=== PATIENT | female | born 1955 | race Caucasian/White ===

== ENCOUNTER → 2019-04-07 | Outpatient (CLI) | payer MEDICARE, OTHER ==
--- NOTE | 2019-04-07 15:11 | US ---
EXAMINATION TYPE: US pelvic limited DATE OF EXAM: 04/07/2019 COMPARISON: NONE CLINICAL HISTORY: R10.2 pelvic and perineal pain. Perineal pain total hysterectomy. TECHNIQUE: Transabdominal (TA). EXAM MEASUREMENTS: Uterus: Surgically absent cm Endometrial Stripe: Surgically absent cm Right Ovary: Surgically absent cm Left Ovary: Surgically absent cm 1. Uterus: Surgically absent 2. Endometrium: Surgically absent 3. Right Ovary: Surgically absent 4. Left Ovary: Surgically absent 5. Bilateral Adnexa: wnl Images show portion of normal-appearing bladder. No concerning mass or fluid collection seen. IMPRESSION: As above. MTDD
== END | disposition home or self-care (01) ==
LOC: MERGE 14:11 → RADUSWWP 14:11
PROVIDERS: ATTEND Family Medicine
DX: R10.2 Pelvic and perineal pain (principal); Z90.710 Acquired absence of both cervix and uterus; Z90.722 Acquired absence of ovaries, bilateral
CPT/HCPCS: 76856; 76857

== ENCOUNTER → 2019-05-27 | Outpatient (CLI) | payer MEDICARE, OTHER ==
[2019-05-27 13:15] LABS: Basophils # (A) 0.1 k/uL (0-0.2); Basophils % (A) 1 %; Eosinophils # (A) 0.6 k/uL (0-0.7); Eosinophils % (A) 7 %; HCT 39.1 % (34.0-46.0); HGB 12.6 gm/dL (11.4-16.0); Lymphocytes % (A) 25 %; MCH 29.5 pg (25.0-35.0); MCHC 32.3 g/dL (31.0-37.0); MCV 91.2 fL (80.0-100.0); Mean Platelet Volume 7.4; Monocytes # (A) 0.7 k/uL (0-1.0); Monocytes % (A) 8 %; Neutrophils # (A) 4.6 k/uL (1.3-7.7); Neutrophils % (A) 57 %; Platelet Count 233 k/uL (150-450); RBC 4.28 m/uL (3.80-5.40); RDW 13.5 % (11.5-15.5); WBC 8.1 k/uL (3.8-10.6)
[2019-05-27 19:49] LABS: % Iron Saturation 9.04 (12.00-45.00); African American GFR (CKD) 110.1 (60.0-200.0); Anion Gap 9.6 mmol/L (4.00-12.00); BUN/Creat Ratio 31.67 Ratio (12.00-20.00); Calcium 9.5 mg/dL (8.7-10.3); Carbon Dioxide 28.4 mmol/L (21.6-31.8); Potassium 4.2 mmol/L (3.5-5.5)
== END | disposition home or self-care (01) ==
LOC: LABWHC1 12:22
PROVIDERS: ATTEND Family Medicine
DX: I50.9 Heart failure, unspecified (principal); D64.9 Anemia, unspecified
CPT/HCPCS: 36415; 80048; 82728; 83540; 83550; 85025

== ENCOUNTER → 2019-05-27 | Outpatient (CLI) | payer MEDICARE, OTHER ==
--- NOTE | 2019-05-27 13:13 | XR ---
Left RIBS HISTORY: Dyspnea, pain on inspiration, trauma 4 views of the left ribs There is no evident pneumothorax or pleural effusion. Calcified breast prosthesis is overlying the lo wer chest. There is some pleural thickening along the left lateral pleural margin. The fifth rib show s a contour abnormality laterally on one view, fourth, fifth, sixth ribs show questionable contour ab normality on additional oblique view. Inferior ribs are not well seen and there entirety due to patie nt body habitus. Postop changes are noted to the lumbar spine. Arthropathy present in left shoulder. Thoracic spondylosis noted incidentally. Aorta is dense. Possible spinal curvature. IMPRESSION: Findings consistent with rib fractures as described. Bone scan could be performed for add itional evaluation.
== END | disposition home or self-care (01) ==
LOC: RAD 12:51
PROVIDERS: ATTEND Family Medicine
DX: R60.0 Localized edema (principal)

== ENCOUNTER → 2019-06-04 | Outpatient (CLI) | payer MEDICARE, OTHER ==
--- NOTE | 2019-06-04 14:32 | XR ---
EXAMINATION TYPE: XR chest 2V, XR ribs LT DATE OF EXAM: 06/04/2019 COMPARISON: 05/27/2019 left ribs HISTORY: Rib fractures TECHNIQUE: Frontal and lateral views of the chest are obtained. FINDINGS: There is no focal air space opacity, pleural effusion, or pneumothorax seen. The cardiac silhouette size is within normal limits. The osseous structures are remarkable for a contour anomal y is present around the fourth, fifth, sixth ribs consistent with possible nondisplaced fractures, po stop changes are noted in the lumbar spine. Calcified left breast prosthesis is noted. Osteoarthritic change noted in the left shoulder. IMPRESSION: Findings are similar to prior exam. Consider bone scan for increased sensitivity and spe cificity as indicated.
== END | disposition home or self-care (01) ==
LOC: RADXRMAIN 09:48
PROVIDERS: ATTEND Family Medicine
DX: S22.42XA Multiple fractures of ribs, left side, initial encounter for closed fracture (principal)
CPT/HCPCS: 71046

== ENCOUNTER 2019-10-06 06:56 | Inpatient (IN) | payer MEDICARE, OTHER ==
[2019-10-06] MEDS ORDERED: SODIUM CHLORIDE 0.9% 1,000 ML IV STA (07:04)
[2019-10-06] MEDS ORDERED: HYDROmorphone 1 MG/ML 1 ML SYRINGE IVP STA ×2 (07:13→09:31)
--- NOTE | 2019-10-06 07:17 | ED ---
General Adult HPI - General Chief complaint: Abdominal Pain Stated complaint: GI problems, Abdominal Pain Time Seen by Provider: 10/06/19 07:00 Source: patient, EMS Mode of arrival: EMS Limitations: no limitations - History of Present Illness Initial comments: Dictation was produced using [employer] dictation software. please excuse any grammatical, word or spelling errors. This patient was cared for during a federal and state declared state of isis rgency secondary to Covid 19 Chief Complaint: 64-year-old female past medical history of bowel obstructions, bowel resections presents with abdominal pain History of Present Illness: 64-year-old female she presents today with abdominal pain. Patient recently moved from [place]. She has a long-standing history of bowel obstruction secondary to adhesions. She's had multiple bowel re sections while residing down in [place] for abdominal adhesions causing obstructions. Patient states she will suffer from a bowel obstruction 3 years ago. At approximately 1 AM this morning she reports that her symptoms became much more severe. She states that her symptoms initially started 3 days ago. States that her pain is nonlocalized and diffuse. She states the worst of her pain is in the left lower quadrant. No diarrhea or vomiting. She does complain of some nausea and poor appetite. Denies any fever, chills or night sweats. Denies any radiation of symptoms. She reports that her pain is severe. Her surgeon who performed all of her bowel resections or small bowel obstruction is located in [place] when she used to live there. Patient was transferred to the emergency department via EMS. EMS provided patient with 100 g of intranasal 10 no with minimal affect. Patient lives alone in the area with her dog. The ROS documented in this emergency department record has been reviewed and confirmed by me. Those systems with pertinent positive or negative responses have been documented in the HPI. All other systems are other negative and/or noncontributory. PHYSICAL EXAM: General Impression: Alert and oriented x3, not in acute distress HEENT: Normocephalic atraumatic, extra-ocular movements intact, pupils equal and reactive to light bilaterally, dry mucous membranes Cardiovascular: Heart regular rate and rhythm Chest: Able to complete full sentences, no retractions, no tachypnea Abdomen: Diffuse abdominal tenderness, tympanitic to percussion Musculoskeletal: Pulses present and equal in all extremities, no peripheral edema Motor: no focal deficits noted Neurological: CN II-XII grossly intact, no focal motor or sensory deficits noted Skin: Intact with no visualized rashes Psych: Normal affect and mood ED course: 64-year-old female with extensive abdominal history with multiple episodes of small bowel obstructions and intra-abdominal surgeries presents with abdominal pain. Patient's concerned that she is suffering from another bout of bowel obstruction. Vital signs upon arrival are within acceptable limits.Laboratory evaluation obtained. Leukocytosis of 15.3, rest of CBC is unremarkable metabolic panel is unremarkable. Urinalysis shows 7 white blood cells. Patient denies any urinary symptoms. Urine sent for culture. CT of the abdomen and pelvis with contrast was obtained showing findings of nausea small bowel obstruction. Nasogastric tube was performed. Discussed patient case Dr. white and is willing to accept patients care for admission. Given 1 dose of cefepime. EKG interpretation: Ventricular rate 64, normal sinus rhythm, SD interval 174, QRS 92, QTc 460. No SD prolongation, no QTC prolongation, no ST or T-wave changes noted. No old EKG for comparison. Overall, this EKG is unremarkable - Related Data Home Medications Medication Instructions Recorded Confirmed Bumetanide [BUMEX] 2 mg PO DAILY 08/01/18 10/06/19 Furosemide [Lasix] 80 mg PO DAILY 08/01/18 10/06/19 Lisinopril [Prinivil] 10 mg PO DAILY 08/01/18 10/06/19 Metoprolol Succinate (ER) [Toprol 100 mg PO DAILY 08/01/18 10/06/19 Xl] Pantoprazole Sodium [Protonix] 80 mg PO DAILY 08/01/18 10/06/19 Potassium Chloride [K-Tab ER] 40 meq PO DAILY 08/01/18 10/06/19 Docusate [Colace] 100 mg PO DAILY 10/06/19 10/06/19 Ibuprofen [Motrin] 600 mg PO TID-W/MEALS PRN 10/06/19 10/06/19 Lidocaine 5% Oint [Xylocaine 5% 1 applic TOPICAL DAILY PRN 10/06/19 10/06/19 Oint] Meloxicam 15 mg PO DAILY 10/06/19 10/06/19 Naratriptan HCl 2.5 mg PO DIRECTED PRN 10/06/19 10/06/19 traMADol HCL 100 mg PO Q6H PRN 10/06/19 10/06/19 Allergies Allergy/AdvReac Type Severity Reaction Status Date / Time carbamazepine [From Tegretol] Allergy increases Verified 10/06/19 10:19 seizures ciprofloxacin [From Cipro] Allergy Unknown Verified 10/06/19 10:19 clindamycin Allergy Nausea & Verified 10/06/19 10:19 Vomiting doxycycline Allergy Unknown Verified 10/06/19 10:19 morphine Allergy Rash/Hives Verified 10/06/19 10:19 Penicillins Allergy Anaphylaxis Verified 10/06/19 10:19 phenobarbital Allergy Rash/Hives Verified 10/06/19 10:19 phenytoin [From Dilantin] Allergy Anaphylaxis Verified 10/06/19 10:19 Review of Systems ROS Statement: Those systems with pertinent positive or pertinent negative responses have been documented in the HPI. ROS Other: All systems not noted in ROS Statement are negative. Past Medical History Past Medical History: Cancer, Heart Failure, COPD, CVA/TIA, Deep Vein Thrombosis (DVT), GERD/Reflux, Hypertension, Myocardial Infarction (IA), Neurologic Disorder, Osteoarthritis (OA), Seizure Disorder Additional Past Medical History / Comment(s): cancer- earnest breast, ovarian, u terine cancer, irreg heart rate CVA 1982, last seizure "decades ago" occasionally will experience petit mals, multiple cyst both kidneys, white matter and deep ash matter lesions in brain Last Myocardial Infarction Date:: 1997 History of Any Multi-Drug Resistant Organisms: MRSA Date of last positivie culture/infection: 2003 MDRO Source:: lt hip Past Surgical History: Appendectomy, Back Surgery, Bowel Resection, Breast Surgery, Cholecystectomy, Hysterectomy, Orthopedic Surgery, Tonsillectomy Additional Past Surgical History / Comment(s): earnest mastectomy, back surgery x5 with last sx cage in back, bowel resection x5-6, earnest. carpal tunnel, lt rotator cuff repair Past Anesthesia/Blood Transfusion Reactions: Previous Problems w/ Anesthesia Additional Past Anesthesia/Blood Transfusion Reaction / Comment(s): experiences anxiety prior to surgery and agitiation. b/p elevates during surgery. woke up during surgery. difficult IV start Past Psychological History: Anxiety, Depression Smoking Status: Never smoker Past Alcohol Use History: Rare Past Drug Use History: None Reported - Past Family History Mother Family Medical History: Cancer Additional Family Medical History / Comment(s): lung Father Family Medical History: Cancer Additional Family Medical History / Comment(s): prostate Brother(s) Family Medical History: Cancer Additional Family Medical History / Comment(s): lung with metastasis General Exam Limitations: no limitations Course Vital Signs 10/06/19 10/06/19 06:58 08:03 Temperature 98.6 F Pulse Rate 85 78 Respiratory 16 18 Rate Blood Pressure 154/94 124/84 O2 Sat by Pulse 94 L 96 Oximetry Medical Decision Making - Lab Data Result diagrams: 10/06/19 07:19 10/06/19 07:19 Lab Results 10/06/19 10/06/19 10/06/19 Range/Units 07:19 07:19 08:45 WBC 15.3 H (3.8-10.6) k/uL RBC 5.54 H (3.80-5.40) m/uL Hgb 15.5 (11.4-16.0) gm/dL Hct 46.9 H (34.0-46.0) % MCV 84.6 (80.0-100.0) fL MCH 28.0 (25.0-35.0) pg MCHC 33.1 (31.0-37.0) g/dL RDW 13.7 (11.5-15.5) % Plt Count 309 (150-450) k/uL Neutrophils % 79 % Lymphocytes % 13 % Monocytes % 4 % Eosinophils % 2 % Basophils % 1 % Neutrophils # 12.2 H (1.3-7.7) k/uL Lymphocytes # 2.0 (1.0-4.8) k/uL Monocytes # 0.6 (0-1.0) k/uL Eosinophils # 0.3 (0-0.7) k/uL Basophils # 0.1 (0-0.2) k/uL Hypochromasia Slight Sodium 139 (137-145) mmol/L Potassium 4.9 (3.5-5.1) mmol/L Chloride 103 (98-107) mmol/L Carbon Dioxide 22 (22-30) mmol/L Anion Gap 14 mmol/L BUN 22 H (7-17) mg/dL Creatinine 0.66 (0.52-1.04) mg/dL Est GFR (CKD-EPI)AfAm >90 (>60 ml/min/1.73 sqM) Est GFR (CKD-EPI)NonAf >90 (>60 ml/min/1.73 sqM) Glucose 120 H (74-99) mg/dL Calcium 10.1 (8.4-10.2) mg/dL Total Bilirubin 0.8 (0.2-1.3) mg/dL AST 39 H (14-36) U/L ALT 14 (4-34) U/L Alkaline Phosphatase 167 H (38-126) U/L Total Protein 8.3 H (6.3-8.2) g/dL Albumin 5.0 (3.5-5.0) g/dL Lipase 143 (23-300) U/L Urine Color Yellow Urine Appearance Clear (Clear) Urine pH 6.0 (5.0-8.0) Ur Specific [place] 1.020 (1.001-1.035) Urine Protein Trace H (Negative) Urine Glucose (UA) Negative (Negative) Urine Ketones Negative (Negative) Urine Blood Negative (Negative) Urine Nitrite Negative (Negative) Urine Bilirubin Negative (Negative) Urine Urobilinogen 2.0 (<2.0) mg/dL Ur Leukocyte Esterase Moderate H (Negative) Urine RBC 1 (0-5) /hpf Urine WBC 7 H (0-5) /hpf Ur Squamous Epith Cells 1 (0-4) /hpf Hyaline Casts 1 (0-2) /lpf Disposition Clinical Impression: Bowel obstruction Disposition: ADMITTED IP TO THIS HOSP Condition: Fair Referrals: Bia May MD [Primary Care Provider] - 1-2 days Decision Time: 10:58
[2019-10-06 07:45] LABS: Basophils # (A) 0.1 k/uL (0-0.2); Basophils % (A) 1 %; Eosinophils # (A) 0.3 k/uL (0-0.7); Eosinophils % (A) 2 %; HCT 46.9 % (34.0-46.0); HGB 15.5 gm/dL (11.4-16.0); Hypochromasia Slight; Lymphocytes % (A) 13 %; MCHC 33.1 g/dL (31.0-37.0); MCV 84.6 fL (80.0-100.0); Mean Platelet Volume 7.7; Monocytes # (A) 0.6 k/uL (0-1.0); Monocytes % (A) 4 %; Neutrophils # (A) 12.2 k/uL (1.3-7.7); Neutrophils % (A) 79 %; Platelet Count 309 k/uL (150-450); RBC 5.54 m/uL (3.80-5.40); RDW 13.7 % (11.5-15.5); WBC 15.3 k/uL (3.8-10.6)
[2019-10-06 08:51] LABS: ALT 14 U/L (4-34); AST 39 U/L (14-36); African American GFR (CKD) >90 (>60 ml/min/1.73 sqM); Alkaline Phosphatase 167 U/L (38-126); Anion Gap 14 mmol/L; Blood Urea Nitrogen 22 mg/dL (7-17); Calcium 10.1 mg/dL (8.4-10.2); Carbon Dioxide 22 mmol/L (22-30); Chloride 103 mmol/L (98-107); Glucose 120 mg/dL (74-99); Non-African American GFR(CKD) >90 (>60 ml/min/1.73 sqM); Potassium 4.9 mmol/L (3.5-5.1); Sodium 139 mmol/L (137-145); Total Bilirubin 0.8 mg/dL (0.2-1.3); Total Protein 8.3 g/dL (6.3-8.2)
[2019-10-06 09:07] LABS: Appearance,Urine Clear (Clear); Bilirubin,Urine Negative (Negative); Blood,Urine Negative (Negative); Color,Urine Yellow; Glucose,Urine (UA) Negative (Negative); Hyaline Casts,Urine 1 /lpf (0-2); Ketones,Urine Negative (Negative); Leukocyte Esterase,Urine Moderate (Negative); Nitrite,Urine Negative (Negative); Protein,Urine Trace (Negative); RBC,Urine 1 /hpf (0-5); Squamous Epithelial Cell,Urine 1 /hpf (0-4); WBC,Urine 7 /hpf (0-5)
--- NOTE | 2019-10-06 10:04 | CT ---
EXAMINATION TYPE: CT abdomen pelvis w con DATE OF EXAM: 10/06/2019 HISTORY: Abd pain, history of multiple bowel obstructions. CT DLP: 809.1mGycm Automated Exposure Control for Dose Reduction was Utilized. CONTRAST: CT scan of the abdomen and pelvis is performed without oral but with IV Contrast, patient injected wi th 100 mL of Isovue 300. COMPARISON: None. FINDINGS: LUNG BASES: Partial visualization of bilateral breast implants, left breast implant noted smaller in size with rim calcification. Suspect possible contracture or rupture. Correlate clinically. Dependent atelectasis both bases. LIVER/GB: Gallbladder noted surgically absent. Fairly moderate mid segment extra hepatic biliary dil atation up to 17 mm inferior to the yusef hepatis coronal image 18. There is perhaps mild left-sided intrahepatic biliary dilatation. The central extrahepatic bile duct less prominent near the yusef hep atis where there is some tortuous course noted. The bile duct tapers roughly 14 mm near the ampulla c oronal image 44. PANCREAS: No significant abnormality is seen. SPLEEN: No significant abnormality is seen. ADRENALS: No significant abnormality is seen. KIDNEYS: A few scattered simple-appearing thin-walled cysts throughout both kidneys. No hydronephrosi s is noted bilaterally. BOWEL: Small to moderate-sized hiatal hernia. Stomach poorly distended on this suboptimally evaluated . No suspicious dilatation of duodenal sweep. Proximal small bowel loops in the left upper and midabd omen show no suspicious dilatation. The mid to lower abdomen shows prominent fluid and fecal filled b owel loop snare sutures up to 44 mm coronal image 25 in the lower abdomen just right of midline and u p to 53 mm left lower quadrant coronal image 42. Additional sutures seen anteriorly in the upper pelv is. Fecal material seen in nondistended colon along the periphery. Scattered peripheral colonic diver ticula. Mild to moderate fat stranding in the upper pelvis coronal image 41 for reference. UTERUS/ADNEXA: Uterus surgically absent or markedly atrophic. Scattered pelvic phleboliths. LYMPH NODES: No greater than 1cm abdominal or pelvic lymph nodes are appreciated. OSSEOUS STRUCTURES: Posterior interpedicular rods and screws transfix L4-S1 levels. Artificial disc m aterial. Left-sided screw appears to encroach upon the draining left internal iliac vein axial image 51 and sagittal image 68 without evidence of thrombus on delayed images. Posterior decompression with laminectomy defect lower lumbar spine.. OTHER: No significant additional abnormality is seen. IMPRESSION: 1. Extensive surgical change involving bowel loops mid to lower abdomen into the upper pelvis with fo kathrin fluid and fecal dilatation. Surrounding inflammatory change noted. Findings could reflect product of partial bowel obstruction, cannot exclude closed-loop obstruction or internal hernia as there is no significant proximal dilatation noted currently and findings are more prominent or localized. 2. Fairly moderate extrahepatic and mild intrahepatic biliary dilatation should be correlated clinica lly and with old outside studies to determine need for further workup.
[2019-10-06] MEDS ORDERED: CEFEPIME 2 GM in SODIUM CHLORIDE 0.9% 100 ML IVPB STA (10:27)
[2019-10-06] MEDS ORDERED: NALOXONE 0.4 MG/ML 1 ML VIAL IV PRN (10:54)
[2019-10-06] MEDS ORDERED: ACETAMINOPHEN TAB 325 MG TAB PO PRN (10:54)
--- NOTE | 2019-10-06 11:59 | XR ---
EXAMINATION TYPE: XR abdomen 1V DATE OF EXAM: 10/06/2019 COMPARISON: 10/06/2019 HISTORY: NG tube placement TECHNIQUE: One view abdominal series FINDINGS: The osseous structures are intact. The bowel gas pattern is nonspecific. An NG tube is seen coiled i n the left upper quadrant likely within the body the stomach. Postsurgical change involving the verte bral column. There are remaining prominent small bowel loops. Lower abdomen and pelvis are not includ ed on exam. Basilar consolidation is noted. IMPRESSION: 1. Nonspecific abdomen. Findings suspicious for ileus or small bowel obstruction. NG tube seen coile d in the left upper quadrant likely within the body of the stomach. 2. Bibasilar atelectasis or infiltrate.
[2019-10-06] MEDS: HYDROmorphone 0.5 MG/0.5 ML SYRINGE IVP PRN ×3 (12:08→16:04)
[2019-10-06] MEDS: SODIUM CHLORIDE 0.9% 1,000 ML IV SCH ×2 (12:27→23:48)
--- NOTE | 2019-10-06 15:06 | P.GSHP ---
History of Present Illness H&P Date: 10/06/19 Chief Complaint: abdominal pain CHIEF COMPLAINT: Abdominal pain HISTORY OF PRESENT ILLNESS: 64-year-old female who presented to emergency room with a chief complaint of abdominal pain and bloating. Patient has a history of a partial bowel resection and also reports having multiple bowel obstructions. Patient reports her pain feels worse than it has with her previous bowel obstructions. She reports severe pain in the left upper and lower quadrants. An NG tube has been inserted in the emergency room. PAST MEDICAL HISTORY: See list. PAST SURGICAL HISTORY: See list. SOCIAL HISTORY: No illicit drug use. REVIEW OF SYSTEMS: CONSTITUTIONAL: Denies fever or chills. HEENT: Denies blurred vision, vision changes, or eye pain. Denies hemoptysis CARDIOVASCULAR: Denies chest pain or pressure. RESPIRATORY: No shortness of breath. GASTROINTESTINAL: Refer to HPI for pertinent findings HEMATOLOGIC: Denies bleeding disorders. GENITOURINARY: Denies any blood in urine. SKIN: Denies pruitis. Denies rash. PHYSICAL EXAM: VITAL SIGNS: Reviewed. GENERAL: Well-developed in no acute distress. HEENT: No sclera icterus. Extraocular movements grossly intact. Moist buccal mucosa. Head is atraumatic, normocephalic. ABDOMEN: Soft. Distended. Tenderness upon palpation of left upper and lower quadrants. NEUROLOGIC: Alert and oriented. Cranial nerves II through XII grossly intact. LABORATORY DATA: WBC 15.3. Hemoglobin 15.5. Platelet count 309. IMAGING: CT abdomen and pelvis: Extensive surgical changes involving bowel loops mid to l ower abdomen into the upper pelvis with focal fluid and fecal dilatation. Surrounding inflammatory changes noted. Findings could reflect partial bowel obstruction. Cannot exclude closed loop obstruction or internal hernia. ASSESSMENT: 1. Small bowel obstruction PLAN: -NPO -Continue NG tube -IV antibiotics -Patient tentatively scheduled for exploratory laparotomy tomorrow with Dr. Artis Nurse practitioner note has been reviewed by physician. Signing provider agrees with the documented findings, assessment, and plan of care. Past Medical History Past Medical History: Cancer, Heart Failure, COPD, CVA/TIA, Deep Vein Thrombosis (DVT), GERD/Reflux, Hypertension, Myocardial Infarction (AL), Neurologic Disorder, Osteoarthritis (OA), Seizure Disorder Additional Past Medical History / Comment(s): cancer- earnest breast, ovarian, uterine cancer, irreg heart rate CVA 1982, last seizure "decades ago" occasionally will experience petit mals, multiple cyst both kidneys, white matter and deep ash matter lesions in brain Last Myocardial Infarction Date:: 1997 History of Any Multi-Drug Resistant Organisms: MRSA Date of last positivie culture/infection: 2003 MDRO Source:: lt hip Past Surgical History: Appendectomy, Back Surgery, Bowel Resection, Breast Surgery, Cholecystectomy, Hysterectomy, Orthopedic Surgery, Tonsillectomy Additional Past Surgical History / Comment(s): earnest mastectomy, back surgery x5 with last sx cage in back, bowel resection x5-6, earnest. carpal tunnel, lt rotator cuff repair Past Anesthesia/Blood Transfusion Reactions: Previous Problems w/ Anesthesia Additional Past Anesthesia/Blood Transfusion Reaction / Comment(s): experiences anxiety prior to surgery and agitiation. b/p elevates during surgery. woke up during surgery. difficult IV start Past Psychological History: Anxiety, Depression Smoking Status: Never smoker Past Alcohol Use History: Rare Past Drug Use History: None Reported Additional Drug Use History / Comment(s): CBD pill daily stopped 07/30/18 - Past Family History Mother Family Medical History: Cancer Additional Family Medical History / Comment(s): lung Father Family Medical History: Cancer Additional Family Medical History / Comment(s): prostate Brother(s) Family Medical History: Cancer Additional Family Medical History / Comment(s): lung with metastasis Medications and Allergies Home Medications Medication Instructions Recorded Confirmed Type Bumetanide [BUMEX] 2 mg PO DAILY 08/01/18 10/06/19 History Furosemide [Lasix] 80 mg PO DAILY 08/01/18 10/06/19 History Lisinopril [Prinivil] 10 mg PO DAILY 08/01/18 10/06/19 History Metoprolol Succinate (ER) [Toprol 100 mg PO DAILY 08/01/18 10/06/19 History Xl] Pantoprazole Sodium [Protonix] 80 mg PO DAILY 08/01/18 10/06/19 History Potassium Chloride [K-Tab ER] 40 meq PO DAILY 08/01/18 10/06/19 History Docusate [Colace] 100 mg PO DAILY 10/06/19 10/06/19 History Ibuprofen [Motrin] 600 mg PO TID-W/MEALS PRN 10/06/19 10/06/19 History Lidocaine 5% Oint [Xylocaine 5% 1 applic TOPICAL DAILY PRN 10/06/19 10/06/19 History Oint] Meloxicam 15 mg PO DAILY 10/06/19 10/06/19 History Naratriptan HCl 2.5 mg PO DIRECTED PRN 10/06/19 10/06/19 History traMADol HCL 100 mg PO Q6H PRN 10/06/19 10/06/19 History Allergies Allergy/AdvReac Type Severity Reaction Status Date / Time carbamazepine [From Tegretol] Allergy increases Verified 10/06/19 10:19 seizures ciprofloxacin [From Cipro] Allergy Unknown Verified 10/06/19 10:19 clindamycin Allergy Nausea & Verified 10/06/19 10:19 Vomiting doxycycline Allergy Unknown Verified 10/06/19 10:19 morphine Allergy Rash/Hives Verified 10/06/19 10:19 Penicillins Allergy Anaphylaxis Verified 10/06/19 10:19 phenobarbital Allergy Rash/Hives Verified 10/06/19 10:19 phenytoin [From Dilantin] Allergy Anaphylaxis Verified 10/06/19 10:19 Surgical - Exam Vital Signs Temp Pulse Resp BP Pulse Ox 98.6 F 85 16 154/94 94 L 10/06/19 06:58 10/06/19 06:58 10/06/19 06:58 10/06/19 06:58 10/06/19 06:58 Results - Labs 10/06/19 07:19 10/06/19 07:19 Abnormal Lab Results - Last 24 Hours (Table) 10/06/19 10/06/19 10/06/19 Range/Units 07:19 07:19 08:45 WBC 15.3 H (3.8-10.6) k/uL RBC 5.54 H (3.80-5.40) m/uL Hct 46.9 H (34.0-46.0) % Neutrophils # 12.2 H (1.3-7.7) k/uL BUN 22 H (7-17) mg/dL Glucose 120 H (74-99) mg/dL AST 39 H (14-36) U/L Alkaline Phosphatase 167 H (38-126) U/L Total Protein 8.3 H (6.3-8.2) g/dL Urine Protein Trace H (Negative) Ur Leukocyte Esterase Moderate H (Negative) Urine WBC 7 H (0-5) /hpf Diabetes panel 10/06/19 Range/Units 07:19 Sodium 139 (137-145) mmol/L Potassium 4.9 (3.5-5.1) mmol/L Chloride 103 (98-107) mmol/L Carbon Dioxide 22 (22-30) mmol/L BUN 22 H (7-17) mg/dL Creatinine 0.66 (0.52-1.04) mg/dL Glucose 120 H (74-99) mg/dL Calcium 10.1 (8.4-10.2) mg/dL AST 39 H (14-36) U/L ALT 14 (4-34) U/L Alkaline Phosphatase 167 H (38-126) U/L Total Protein 8.3 H (6.3-8.2) g/dL Albumin 5.0 (3.5-5.0) g/dL Calcium panel 10/06/19 Range/Units 07:19 Calcium 10.1 (8.4-10.2) mg/dL Albumin 5.0 (3.5-5.0) g/dL Pituitary panel 10/06/19 Range/Units 07:19 Sodium 139 (137-145) mmol/L Potassium 4.9 (3.5-5.1) mmol/L Chloride 103 (98-107) mmol/L Carbon Dioxide 22 (22-30) mmol/L BUN 22 H (7-17) mg/dL Creatinine 0.66 (0.52-1.04) mg/dL Glucose 120 H (74-99) mg/dL Calcium 10.1 (8.4-10.2) mg/dL Adrenal panel 10/06/19 Range/Units 07:19 Sodium 139 (137-145) mmol/L Potassium 4.9 (3.5-5.1) mmol/L Chloride 103 (98-107) mmol/L Carbon Dioxide 22 (22-30) mmol/L BUN 22 H (7-17) mg/dL Creatinine 0.66 (0.52-1.04) mg/dL Glucose 120 H (74-99) mg/dL Calcium 10.1 (8.4-10.2) mg/dL Total Bilirubin 0.8 (0.2-1.3) mg/dL AST 39 H (14-36) U/L ALT 14 (4-34) U/L Alkaline Phosphatase 167 H (38-126) U/L Total Protein 8.3 H (6.3-8.2) g/dL Albumin 5.0 (3.5-5.0) g/dL
[2019-10-06] MEDS: HEPARIN SODIUM,PORCINE 5,000 UNIT/ML 1 ML VIAL SQ SCH (16:03)
[2019-10-06] MEDS: metroNIDAZOLE-NS PMX 500 MG in SALINE 1 100ML.BAG IVPB SCH (16:03)
[2019-10-06] MEDS: LORazepam 2 MG/ML INJ IV PRN (17:04)
--- NOTE | 2019-10-06 17:46 | XR ---
EXAMINATION TYPE: XR chest 1V portable DATE OF EXAM: 10/06/2019 Comparison: 06/04/2019 Clinical History: 64-year-old female CHF Findings: Heart borderline in size. Mild interstitial density. Some overlying hazy density from patient's bilat eral breast implants. NG tube courses below the diaphragm. No sizable effusion. Impression: Interstitial density may reflect mild pulmonary vascular congestion.
[2019-10-06] MEDS: HYDROmorphone 1 MG/ML 1 ML SYRINGE IVP PRN ×4 (18:01→23:44)
--- NOTE | 2019-10-06 19:45 | CONS ---
CONSULTATION REASON FOR CONSULTATION: Advice regarding COPD, CHF and other medical issues, requested by Dr. Artis. HISTORY OF PRESENT ILLNESS: This 64-year-old woman with a past medical history of CHF, COPD, CVA, DVT, history of GERD, hypertension, myocardial infarction, seizure disorder, history of appendectomy, back surgery, being followed by Dr. May in the outpatient setting, was complaining of severe abdominal pain for the last several days. 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 The pain is rather diffuse. The patient had previous multiple bowel surgeries and multiple bowel resections at [facility]. The patient had a bowel obstruction secondary to adhesions. The patient said at 1 a.m. the symptoms were worse. Mainly the pain was in the left lower quadrant. When the patient came to [facility], pain was 10/10 in intensity. Patient underwent a CT scan of the abdomen and pelvis which showed extensive surgical changes as well as bowel loops with dilatation suggestive of partial small-bowel obstruction, closed-loop obstruction. Some intrahepatic biliary dilatation was also noted possibly secondary to cholecystectomy. The patient was complaining, as mentioned, of severe pain. The pain medications have been increased and Ativan also has been added to the current regimen. There is no history of any fever, rigor or chills. No history of headache, loss of consciousness, seizures. No history of hematochezia, melena, diarrhea at this time. PAST MEDICAL HISTORY: History of CHF, COPD, CVA, TIA, DVT, GERD, hypertension, history of myocardial infarction, history of appendectomy, back surgery, history of cholecystectomy. HOME MEDICATIONS: 1. Ultram 100 mg q.6 p.r.n. 2. Meloxicam 15 mg p.o. daily. 3. Colace 100 mg p.o. daily. 4. Naratriptan 2.5 mg p.r.n. 5. Lidocaine 5% one application daily p.r.n. 6. Motrin 600 mg p.o. t.i.d. with meals. 7. Prinivil 10 mg p.o. daily. 8. K-Tab ER 40 mEq p.o. daily. 9. Protonix 80 mg p.o. daily. 10.Toprol-XL 100 mg p.o. daily. 11.Lasix 80 mg p.o. daily. 12.Bumex 2 mg p.o. daily. ALLERGIES: TEGRETOL, CIPRO, CLINDAMYCIN, DOXYCYCLINE, MORPHINE, PENICILLIN, PHENOBARBITAL, DILANTIN. FAMILY HISTORY: History of lung cancer in the family. SOCIAL HISTORY: No history of smoking. Occasional alcohol intake. REVIEW OF SYSTEMS: ENT: No diminished hearing. No diminished vision. CARDIOVASCULAR SYSTEM: As mentioned earlier. RESPIRATORY SYSTEM: As mentioned earlier. GI: As mentioned earlier. : No dysuria or retention. NERVOUS SYSTEM: No numbness, weakness. ALLERGY/IMMUNOLOGY: No asthma, hayfever. MUSCULOSKELETAL: As mentioned earlier. HEMATOLOGY/ONCOLOGY: No history of anemia. ENDOCRINE: No history of diabetes, hypothyroidism. CONSTITUTIONAL: As mentioned earlier. DERMATOLOGY: Negative. RHEUMATOLOGY: Negative. PSYCHIATRY: As mentioned earlier. PHYSICAL EXAMINATION: Patient alert and oriented x3. Pulse 77, blood pressure 109/74, respiration 16, temperature 98 degrees, pulse ox 94% on room air. HEENT: Conjunctivae normal. Oral mucosa moist. NECK: No jugular venous distention. No carotid bruit. No lymph node enlargement. CARDIOVASCULAR SYSTEM: S1, S2 muffled. RESPIRATORY SYSTEM: Breath sounds diminished at the bases. A few scattered rhonchi and crackles. ABDOMEN: Soft. Status post surgery. No guarding. No rigidity. No mass palpable. Mild diffuse distention present. Most of the tenderness in the left side of the abdomen. NG tube in situ. Bowel sounds diminished. LEGS: No edema. No swelling. NERVOUS SYSTEM: Higher functions as mentioned earlier. Moves all 4 limbs. No focal motor or sensory deficit. LYMPHATICS: No lymph node palpable in neck, axillae or groin. SKIN: No ulcer, rash, bleeding. JOINTS: No active deforming arthropathy. LABS: WBC 15.3, hemoglobin 15.5, sodium 139, potassium 4.9. Total protein is 8.3. ASSESSMENT: 1. Abdominal pain with possibly partial small bowel obstruction. 2. Increased white count. 3. Increased random blood sugar. 4. History of congestive heart failure. 5. History of chronic obstructive pulmonary disease. 6. History of cerebrovascular accident, transient ischemic attack. 7. History of deep vein thrombosis. 8. Gastroesophageal reflux disease. 9. Hypertension. 10.History of myocardial infarction. 11.History of degenerative joint disease. 12.History of seizure disorder. 13.History of bilateral breast and ovarian cancer. 14.History of cerebrovascular accident. 15.History of methicillin-resistant Staphylococcus aeruginosa. 16.History of appendectomy. 17.History of breast surgery. 18.History of bowel resection. 19.History of cholecystectomy. 20.History of mastectomy. 21.History of multiple bowel resections previously. 22.Previous problems with anesthesia. 23.Anxiety, depression. 24.FULL CODE. RECOMMENDATIONS AND DISCUSSION: In this 64-year-old woman who presented with multiple complex medical issues, we will monitor the patient closely, continue the current medications, continue with symptomatic treatment. The patient had possibly bowel obstruction and might need surgical intervention at this time. I recommend optimizing the home medications. The patient appears to be euvolemic at this time. I would also recommend a chest x-ray to rule out the possibility of an active CHF. Medications will be given appropriately. Otherwise, I would also recommend a cardiology evaluation because of the extensive cardiac history as well. The patient appears to be stable and medically cleared for surgery once seen by Cardiology. Otherwise, see orders for further details. Further recommendations to follow. DVT prophylaxis. Proton pump inhibitors. Thank you, Dr. Artis, for letting us participate in the care of this patient. The patient may be asked to follow up with Dr. May closely after discharge. MMODL / IJN: [id number] /
[2019-10-06] MEDS ORDERED: CEFEPIME 2 GM in SODIUM CHLORIDE 0.9% 100 ML IVPB SCH (21:00)
[2019-10-06] MEDS: LACTATED RINGERS 1,000 ML IV SCH (21:54)
[2019-10-06] MEDS: CEFEPIME 2 GM in SODIUM CHLORIDE 0.9% 100 ML IVPB SCH (23:43)
[2019-10-07] MEDS: LORazepam 2 MG/ML INJ IV PRN ×3 (00:06→19:58)
[2019-10-07] MEDS: metroNIDAZOLE-NS PMX 500 MG in SALINE 1 100ML.BAG IVPB SCH ×3 (00:22→14:52)
[2019-10-07] MEDS: HEPARIN SODIUM,PORCINE 5,000 UNIT/ML 1 ML VIAL SQ SCH ×3 (00:22→09:38)
[2019-10-07] MEDS: HYDROmorphone 1 MG/ML 1 ML SYRINGE IVP PRN ×8 (01:54→22:11)
[2019-10-07 07:43] LABS: Basophils # (A) 0.1 k/uL (0-0.2); Basophils % (A) 1 %; Eosinophils # (A) 0.2 k/uL (0-0.7); Eosinophils % (A) 3 %; HCT 37.5 % (34.0-46.0); Hypochromasia Moderate; Lymphocytes # (A) 1.4 k/uL (1.0-4.8); Lymphocytes % (A) 22 %; MCH 26.8 pg (25.0-35.0); MCHC 30.6 g/dL (31.0-37.0); MCV 87.7 fL (80.0-100.0); Mean Platelet Volume 7.5; Monocytes # (A) 0.6 k/uL (0-1.0); Monocytes % (A) 9 %; Neutrophils # (A) 4.1 k/uL (1.3-7.7); Neutrophils % (A) 64 %; Platelet Count 250 k/uL (150-450); RBC 4.28 m/uL (3.80-5.40); RDW 14.1 % (11.5-15.5); WBC 6.4 k/uL (3.8-10.6)
[2019-10-07] MEDS: FUROSEMIDE 80 MG TAB PO SCH (07:48)
[2019-10-07 07:49] LABS: African American GFR (CKD) >90 (>60 ml/min/1.73 sqM); Anion Gap 7 mmol/L; Blood Urea Nitrogen 10 mg/dL (7-17); Calcium 8.8 mg/dL (8.4-10.2); Carbon Dioxide 19 mmol/L (22-30); Chloride 115 mmol/L (98-107); Glucose 93 mg/dL (74-99); Non-African American GFR(CKD) >90 (>60 ml/min/1.73 sqM); Sodium 141 mmol/L (137-145)
[2019-10-07] MEDS: PANTOPRAZOLE 40 MG/10 ML VIAL IV SCH ×2 (07:49→16:56)
[2019-10-07] MEDS: BUMETANIDE 1 MG TAB PO SCH (07:49)
--- NOTE | 2019-10-07 07:49 | P.PN ---
Progress Note - Text Progress Note Date: 10/07/19 The patient has had significant abdominal pain overnight. Her pain is not managed well with a lot of. On exam patient has significant pain on palpation. Patient appears to have acute abdomen with peritoneal signs. My concern for ischemic small bowel or or closed loop obstruction with ischemia is high. I discussed the patient and she'll need to go undergo emergent laparotomy this morning.
[2019-10-07] MEDS: METOPROLOL SUCCINATE (ER) 50 MG TAB.ER.24H PO SCH (07:57)
[2019-10-07] MEDS: LISINOPRIL 10 MG TAB PO SCH (07:57)
[2019-10-07 07:58] LABS: HGB 11.5 gm/dL (11.4-16.0)
[2019-10-07] MEDS: CEFEPIME 2 GM in SODIUM CHLORIDE 0.9% 100 ML IVPB SCH ×2 (07:58→14:52)
[2019-10-07] MEDS ORDERED: METOPROLOL SUCCINATE (ER) 100 MG TAB.ER.24H PO SCH (09:00)
[2019-10-07] MEDS ORDERED: IV FLUID CONTINUATION 1,000 ML IV ONE (09:35)
[2019-10-07] MEDS: ONDANSETRON 4 MG/2 ML VIAL IVP PRN ×3 (09:38→23:54)
[2019-10-07] MEDS ORDERED: MIDAZOLAM 2 MG/2 ML VIAL IV ONE (09:56)
[2019-10-07] MEDS ORDERED: HYDROmorphone (PF) 1 MG/ML ONE (10:26)
[2019-10-07] MEDS ORDERED: PROPOFOL 10 MG/ML 20 ML VIAL IV ONE (10:26)
[2019-10-07] MEDS ORDERED: GLYCOPYRROLATE 0.2 MG/ML 2 ML VIAL ONE (10:26)
[2019-10-07] MEDS ORDERED: PHENYLEPHRINE-0.9% NACL SYG 1 MG/10 ML SYRINGE ONE (10:26)
[2019-10-07] MEDS ORDERED: NEOSTIGMINE 1 MG/ML 10 ML VIAL ONE (10:26)
[2019-10-07] MEDS ORDERED: DEXAMETHASONE SOD PHOSPHATE 10 MG/ML 1 ML VIAL ONE (10:26)
[2019-10-07] MEDS ORDERED: LIDOCAINE 1% INJ 10MG/ML (20 ML MDV) ONE (10:26)
[2019-10-07] MEDS ORDERED: ROCURONIUM BROMIDE 10 MG/ML 5 ML VIAL IV ONE (10:26)
[2019-10-07] MEDS ORDERED: fentaNYL (PF) 50 MCG/ML 2 ML AMP ONE (10:26)
[2019-10-07] MEDS ORDERED: SUCCINYLCHOLINE CHLORIDE 100 MG/5 ML SYR IV ONE (10:26)
[2019-10-07] MEDS ORDERED: LACTATED RINGERS 1,000 ML IV ONE ×2 (10:53→13:01)
[2019-10-07] MEDS: SODIUM CHLORIDE 0.9% 1,000 ML IV SCH (11:35)
--- NOTE | 2019-10-07 12:54 | P.OP ---
Date of Procedure: 10/07/19 Preoperative Diagnosis: Small bowel obstruction Postoperative Diagnosis: Small bowel obstruction Extensive adhesions Incisional hernia repair Procedure(s) Performed: Exploratory laparotomy Lysis of extensive adhesions Small bowel resection 2 Incisional hernia repair Anesthesia: HADLEY Surgeon: Giovani Artis Surgeon Partner #1: Tono Morales Estimated Blood Loss (ml): 200 Pathology: other (Small bowel) Condition: stable Disposition: ICU Description of Procedure: Patient's placed on the operative table in the supine position. She received general anesthesia. Her abdomen was prepped and draped usual sterile fashion. The patient multiple laparotomy scars on her belly. The skin was divided in the midline and then using left cautery the fascia was divided. There was small bowel extensively adhered to the anterior abdominal wall fascia. Approximately 45 minutes of operative time used to divide small bowel off of the fascia. There was significant adhesions throughout the small bowel. The peritoneal cavity was frozen. A large amount of time was used to lyse adhesions. There was several enterotomies made in the small bowel. The small bowel was sent densely adhered to the fascia and along the midline scar and there was several enterotomies made. At this point the small bowel was mobilized and then it was decided that due to the significant scar tissue and it and enterotomy is made in the small bowel inside perform a small bowel resection. The jejunum was transected with a GI stapler and then using the Enseal device the mesentery the small bowel was divided. The terminal ileum was divided approximately 5 inches from the cecum. The specimens of pathology. A bxes-up-[id number] functional end-to-end stapled vessels. Between the jejunum and ileum. 3-0 GI silk sutures as a crotch stitch. The abdomen was irrigated there is no bleeding seen. The fascia was closed with looped #1 PDS suture. The skin was closed devon. Several Telfa melissa were placed in the wound. Patient top she will well she was sent to the recovery room and then the ICU.
[2019-10-07] MEDS: HYDROmorphone 1 MG/ML 1 ML SYRINGE IVP ONE ×4 (13:00→14:03)
[2019-10-07] MEDS ORDERED: NALOXONE 0.4 MG/ML 1 ML VIAL IV PRN (13:01)
--- NOTE | 2019-10-07 13:04 | P.PN ---
<Micheline Mckeon - Last Filed: 10/07/19 13:04> Progress Note - Text Attempted to evaluate this patient this morning during rounds. She was artery in the operating room. <Elias Diaz - Last Filed: 10/21/19 13:49> Progress Note - Text Should read "Already" instead of artery
[2019-10-07] MEDS: fentaNYL (PF) 50 MCG/ML 2 ML AMP IVP ONE ×2 (13:10→13:15)
[2019-10-07 14:46] LABS: Glucose,Whole Blood 179 mg/dL (75-99)
--- NOTE | 2019-10-07 15:39 | P.CNPUL ---
History of Present Illness Consult date: 10/07/19 Chief complaint: Small bowel obstruction, History of present illness: 64-year-old female patient was admitted for abdominal pain and bloating. The patient is known to have previous history of partial bowel resection and she has had multiple previous bowel obstructions. Patient reported that she was having significant amount of pain in her left upper and lower quadrants. NG tube was inserted in the emergency department as the patient was given a CAT scan of the abdomen and pelvis that showed extensive surgical changes involving the bowel loops in the mid in the lower abdomen into the upper pelvis with focal fluid and fecal dilatation. Surrounding inflammatory changes noted. Findings were consistent with partial bowel obstruction and the possibility of closed loop obstruction or internal hernia cannot be completely excluded. There was no significant proximal dilatation and the findings were more localized. There was also fairly moderate extrahepatic and mild intrahepatic biliary dilatation noted. Also, there was a small to moderate-sized hiatal hernia. The stomach was poorly distended. No suspicious dilatation of the duodenal sweep. There was also scattered peripheral colonic diverticuli noted. The white cell count was 15.3. The liver function tests were within normal limits. Amylase lipase within normal limits. The patient was taken to the operating room today by Dr. Koehler and the patient underwent expiratory laparotomy. The patient was found to have frozen abdomen with extensive adhesions. The patient underwent lysis of adhesions and small bowel resection 2 and repair of an incisional hernia was also done. Postop, the patient was extubated in the operating room and the patient was brought into the intensive care unit for further monitoring. The patient is on normal saline at the rate of 60 mL an hour and she is also receiving lactated Ringer at the rate of 125 mL an hour. She is on IV cefepime as an empiric antibiotic coverage in combination with Flagyl. The patient is on Lovenox 40 prophylaxis 40 mg subcu every 24 hours. She is also on Dilaudid for pain control. She is awake and alert and her pain is under adequate control. She is wearing an abdominal bounded. Surgical wound site is dry clean and intact. No drains noted. Review of Systems Constitutional: Denies chills, Denies fever Eyes: denies as per HPI, denies blurred vision, denies bulging eye, denies decreased vision, denies diplopia, denies discharge, denies dry eye, denies irritation, denies itching, denies pain, denies photophobia, denies loss of peripheral vision, denies loss of vision, denies tunnel vision/blind spots Ears: deny: decreased hearing, ear discharge, earache, tinnitus Ears, nose, mouth and throat: Denies headache, Denies sore throat Breasts: absent: as per HPI, change in shape, gynecomastia, masses, nipple discharge, pain, skin changes, swelling Cardiovascular: Denies chest pain, Denies shortness of breath Respiratory: Denies cough Gastrointestinal: Reports abdominal pain Genitourinary: Reports as per HPI Menstruation: Reports as per HPI Musculoskeletal: Reports as per HPI Musculoskeletal: absent: ankle pain, ankle stiffness, ankle swelling Integumentary: Reports as per HPI Neurological: Reports as per HPI Psychiatric: Reports as per HPI Endocrine: Reports as per HPI Hematologic/Lymphatic: Reports as per HPI Allergic/Immunologic: Reports as per HPI Past Medical History Past Medical History: Cancer, Heart Failure, COPD, CVA/TIA, Deep Vein Thrombosis (DVT), GERD/Reflux, Hypertension, Myocardial Infarction (VT), Neurologic Disorder, Osteoarthritis (OA), Seizure Disorder Additional Past Medical History / Comment(s): History of bilateral breast ca ncer, ovarian cancer, uterine cancer, history of CVA back in 1982, history of irregular heart rate possibly atrial fibrillation many years back, history of petit mal seizures, coronary artery disease, previous VT, history of DVT, history of acid reflux, history of COPD, hypertension, osteoarthritis, multiple bowel obstruction requiring previous abdominal surgeries and bowel resection. She also has renal cysts Last Myocardial Infarction Date:: 1997 History of Any Multi-Drug Resistant Organisms: MRSA Date of last positivie culture/infection: 2003 MDRO Source:: lt hip Past Surgical History: Appendectomy, Back Surgery, Bowel Resection, Breast Surgery, Cholecystectomy, Hysterectomy, Orthopedic Surgery, Tonsillectomy Additional Past Surgical History / Comment(s): earnest mastectomy, oopherectomy back surgery x5 with last sx cage in back, bowel resection x5-6, earnest. carpal tunnel, lt rotator cuff repair Past Anesthesia/Blood Transfusion Reactions: Previous Problems w/ Anesthesia Additional Past Anesthesia/Blood Transfusion Reaction / Comment(s): experiences anxiety prior to surgery and agitiation. b/p elevates during surgery. woke up during surgery. difficult IV start Past Psychological History: Anxiety, Depression Smoking Status: Never smoker Past Alcohol Use History: Rare Past Drug Use History: None Reported Additional Drug Use History / Comment(s): CBD pill daily stopped 07/30/18 - Past Family History Mother Family Medical History: Cancer Additional Family Medical History / Comment(s): lung Father Family Medical History: Cancer Additional Family Medical History / Comment(s): prostate Brother(s) Family Medical History: Cancer Additional Family Medical History / Comment(s): lung with metastasis Medications and Allergies Home Medications Medication Instructions Recorded Confirmed Type Bumetanide [BUMEX] 2 mg PO DAILY 08/01/18 10/06/19 History Furosemide [Lasix] 80 mg PO DAILY 08/01/18 10/06/19 History Lisinopril [Prinivil] 10 mg PO DAILY 08/01/18 10/06/19 History Metoprolol Succinate (ER) [Toprol 100 mg PO DAILY 08/01/18 10/06/19 History Xl] Pantoprazole Sodium [Protonix] 80 mg PO DAILY 08/01/18 10/06/19 History Potassium Chloride [K-Tab ER] 40 meq PO DAILY 08/01/18 10/06/19 History Docusate [Colace] 100 mg PO DAILY 10/06/19 10/06/19 History Ibuprofen [Motrin] 600 mg PO TID-W/MEALS PRN 10/06/19 10/06/19 History Lidocaine 5% Oint [Xylocaine 5% 1 applic TOPICAL DAILY PRN 10/06/19 10/06/19 History Oint] Meloxicam 15 mg PO DAILY 10/06/19 10/06/19 History Naratriptan HCl 2.5 mg PO DIRECTED PRN 10/06/19 10/06/19 History traMADol HCL 100 mg PO Q6H PRN 10/06/19 10/06/19 History Allergies Allergy/AdvReac Type Severity Reaction Status Date / Time carbamazepine [From Tegretol] Allergy increases Verified 10/06/19 10:19 seizures ciprofloxacin [From Cipro] Allergy Unknown Verified 10/06/19 10:19 clindamycin Allergy Nausea & Verified 10/06/19 10:19 Vomiting doxycycline Allergy Unknown Verified 10/06/19 10:19 morphine Allergy Rash/Hives Verified 10/06/19 10:19 Penicillins Allergy Anaphylaxis Verified 10/06/19 10:19 phenobarbital Allergy Rash/Hives Verified 10/06/19 10:19 phenytoin [From Dilantin] Allergy Anaphylaxis Verified 10/06/19 10:19 Physical Exam Vitals: Vital Signs Temp Pulse Pulse Resp BP Pulse Ox 10/07/19 14:16 104 H 18 116/56 98 10/07/19 14:01 97 18 95/51 95 10/07/19 13:46 82 18 100/54 94 L 10/07/19 13:31 76 18 81/55 97 10/07/19 13:15 77 18 95/51 98 10/07/19 12:55 98.3 F 107 H 14 136/82 99 10/07/19 09:18 98.2 F 112 H 147/75 96 10/07/19 07:19 98.3 F 100 18 153/81 95 10/07/19 03:37 97.9 F 90 18 134/78 95 10/07/19 00:00 18 10/06/19 21:31 98.7 F 85 18 120/78 93 L 10/06/19 20:00 85 18 10/06/19 16:00 24 Intake and Output 10/06/19 10/07/19 10/07/19 22:59 06:59 14:59 Intake Total 230 831 7854 Output Total 100 420 Balance 480 380 980 Intake: IV 1400 Intake, IV Titration 480 480 Amount Sodium Chloride 0.9% 1, 480 480 000 ml @ 60 mls/hr IV . [id number] [facility] Rx#:[id number] Output: Urine 220 Estimated Blood Loss 200 Other 100 Other: # Voids 1 1 Gen. appearance she is calm comfortable sedated no acute distress. Currently her 2liters of oxygen by nasal cannula. Head exam was generally normal. There was no scleral icterus or corneal arcus. Mucous membranes were moist. Neck was supple and without jugular venous distension, thyromegaly, or carotid bruits. Carotids were easily palpable bilaterally. There was no adenopathy. Abdomen is showing postsurgical changes and the incision is dry clean and intact over the mid of the abdominal wall. Bowel sounds are absent. The patient is wearing an abdominal bounded. No direct tenderness. No rebound tenderness. No guarding. No drains noted. Lungs were clear to auscultation and percussion, and with normal diaphragmatic excursion. No wheezes or rales were noted. Cardiac exam revealed the PMI to be normally situated and sized. The rhythm was regular and no extrasystoles were noted during several minutes of auscultation. The first and second heart sounds were normal and physiologic splitting of the second heart sound was noted. There were no murmurs, rubs, clicks, or gallops. Examination of the extremities revealed easily palpable radial, femoral and pedal pulses. There was no cyanosis, clubbing or edema. Examination of the skin revealed no evidence of significant rashes, suspicious appearing nevi or other concerning lesions. Neurologically the patient is awake and alert and there is no focal neurological deficit. Results - Laboratory Findings CBC and BMP: 10/07/19 06:38 10/07/19 06:38 Abnormal lab findings: Abnormal Labs 10/06/19 10/06/19 10/06/19 07:19 07:19 08:45 WBC 15.3 H RBC 5.54 H Hct 46.9 H MCHC Neutrophils # 12.2 H Chloride Carbon Dioxide BUN 22 H Creatinine Glucose 120 H AST 39 H Alkaline Phosphatase 167 H Total Protein 8.3 H Urine Protein Trace H Ur Leukocyte Esterase Moderate H Urine WBC 7 H 10/07/19 10/07/19 06:38 06:38 WBC RBC Hct MCHC 30.6 L Neutrophils # Chloride 115 H Carbon Dioxide 19 L BUN Creatinine 0.47 L Glucose AST Alkaline Phosphatase Total Protein Urine Protein Ur Leukocyte Esterase Urine WBC - Diagnostic Findings Chest x-ray: image reviewed Assessment and Plan Plan: 1 recurrent small bowel obstruction, post exploratory laparotomy for bowel obstruction requiring extensive lysis of adhesions, small bowel resection 2, repair of an incisional hernia and the patient is postop day #0. The patient is known to have his Adacel bowel obstruction and she has required multiple abdominal surgeries including bowel resections and the patient has extensive adhesions as noted intraoperatively. 2 history of multiple bowel surgeries for small bowel obstruction, most of the surgeries were done in [facility]. 3 abdominal pain secondary to above 4 history of malignancies including breast cancer with previous bilateral mastectomy and previous history of hysterectomy for uterine cancer 5 history of CVA 6 history of DVT, 7 history of coronary artery disease with previous VT 8 previous history of seizure many years back 9 small hiatal hernia 10 diverticulosis 11 hypertension 12 chronic anxiety/depression 13 chronic osteoarthritis Plan Check chest x-ray in a.m. IV fluids with lactated Ringer at 125 mL an hour Continue the combination of IV cefepime and Flagyl Hold Bumex for now Lovenox for DVT prophylaxis Keep NG tube in place Dilaudid for pain control We'll continue to follow. I will monitor the patient ICU for another 24 hours.
[2019-10-07] MEDS: ACETAMINOPHEN IV (For NPO) 1,000 MG in EMPTY BAG 1 BAG IVPB SCH ×2 (18:48→23:53)
[2019-10-07] MEDS: LACTATED RINGERS 1,000 ML IV SCH (19:59)
[2019-10-08] MEDS: HYDROmorphone 1 MG/ML 1 ML SYRINGE IVP PRN ×11 (00:15→22:09)
[2019-10-08] MEDS: CEFEPIME 2 GM in SODIUM CHLORIDE 0.9% 100 ML IVPB SCH ×4 (00:21→23:27)
[2019-10-08] MEDS: metroNIDAZOLE-NS PMX 500 MG in SALINE 1 100ML.BAG IVPB SCH ×4 (00:21→23:59)
[2019-10-08] MEDS: BUMETANIDE 1 MG TAB PO SCH (01:25)
[2019-10-08 04:22] LABS: African American GFR (CKD) >90 (>60 ml/min/1.73 sqM); Anion Gap 6 mmol/L; Basophils % (A) 0 %; Blood Urea Nitrogen 9 mg/dL (7-17); Calcium 8.5 mg/dL (8.4-10.2); Carbon Dioxide 20 mmol/L (22-30); Chloride 114 mmol/L (98-107); Eosinophils % (A) 0 %; Glucose 125 mg/dL (74-99); HCT 31.3 % (34.0-46.0); HGB 9.9 gm/dL (11.4-16.0); Hypochromasia Moderate; Lymphocytes # (A) 0.7 k/uL (1.0-4.8); Lymphocytes % (A) 6 %; MCH 27.8 pg (25.0-35.0); MCHC 31.6 g/dL (31.0-37.0); MCV 88.1 fL (80.0-100.0); Mean Platelet Volume 7.7; Monocytes # (A) 0.8 k/uL (0-1.0); Monocytes % (A) 6 %; Neutrophils # (A) 11.1 k/uL (1.3-7.7); Neutrophils % (A) 87 %; Non-African American GFR(CKD) >90 (>60 ml/min/1.73 sqM); Platelet Count 242 k/uL (150-450); Potassium 3.2 mmol/L (3.5-5.1); RBC 3.55 m/uL (3.80-5.40); RDW 14.1 % (11.5-15.5); Sodium 140 mmol/L (137-145); WBC 12.7 k/uL (3.8-10.6)
[2019-10-08] MEDS ORDERED: Potassium Replacement Protocol 1 EACH MISC MISCELLANE PRN (04:37)
[2019-10-08] MEDS: POTASSIUM CHLORIDE 10 MEQ in WATER FOR INJECTION 1 100ML.BAG IVPB SCH ×4 (04:56→11:13)
[2019-10-08] MEDS: ACETAMINOPHEN IV (For NPO) 1,000 MG in EMPTY BAG 1 BAG IVPB SCH ×2 (06:05→12:24)
[2019-10-08] MEDS: LORazepam 2 MG/ML INJ IV PRN ×3 (06:09→20:06)
[2019-10-08] MEDS: ENOXAPARIN 40 MG/0.4 ML SYRINGE SQ SCH (08:20)
[2019-10-08] MEDS: PANTOPRAZOLE 40 MG/10 ML VIAL IV SCH (08:20)
--- NOTE | 2019-10-08 08:45 | XR ---
EXAMINATION TYPE: XR chest 1V portable DATE OF EXAM: 10/08/2019 COMPARISON: 10/06/2019 HISTORY: Shortness of breath TECHNIQUE: Single frontal view of the chest is obtained. FINDINGS: Bilateral consolidation seen. NG tube noted. No pneumothorax. Hyperinflation suggests COPD . IMPRESSION: A bilateral subsegmental consolidation.
--- NOTE | 2019-10-08 09:59 | P.CRDCN ---
History of Present Illness Consult date: 10/08/19 Chief complaint: Status post abdominal surgery History of present illness: This is a very pleasant 64-year-old female patient was requested to see for further cardiac evaluation. The patient does have a past medical history significant for hypertension as well as dyslipidemia. Also she does have a history of multiple abdominal surgery was partial bowel resection. This time she presented to the hospital complaining of abdominal discomfort as well as blunting. NG tube was inserted and the patient subsequently underwent a computed tomography scan and that revealed focal diabetes elevation of the bowel. Subsequently the patient underwent surgery again where she underwent for resection. We consulted to see the patient for further cardiac evaluation. The patient was seen at bedside today and she denies any symptoms of chest pain or chest discomfort or shortness of breath. She is in pain because of the abdominal surgery. Hemodynamically she is a stable except that she is in sinus tachycardia with a heart rate around 120 beats per minutes. Currently the patient is nothing by mouth. I am going to start the patient on metoprolol IV at 2.5 mg every 6 hours unless her pressure dropped below 90 mmHg systolic. She is not aware of any prior history of coronary artery disease and she stated that she underwent a heart catheterization about 2 years ago and that was unremarkable. She does have hypertension as well as dyslipidemia. The EKG showed only sinus tachycardia. I am going also to obtain an echocardiogram with Doppler. There was some concern regarding regarding congestive heart failure but the patient doesn't seems to be in overt heart failure at this point. We will continue the patient on the IV metoprolol until she is not nothing by mouth anymore. The echo was ordered will follow-up with that. Past Medical History Past Medical History: Cancer, Heart Failure, COPD, CVA/TIA, Deep Vein Thrombosis (DVT), GERD/Reflux, Hypertension, Myocardial Infarction (TX), Neurologic Disorder, Osteoarthritis (OA), Seizure Disorder Additional Past Medical History / Comment(s): History of bilateral breast cancer, ovarian cancer, uterine cancer, history of CVA back in 1982, history of irregular heart rate possibly atrial fibrillation many years back, history of petit mal seizures, coronary artery disease, previous TX, history of DVT, history of acid reflux, history of COPD, hypertension, osteoarthritis, multiple bowel obstruction requiring previous abdominal surgeries and bowel resection. She also has renal cysts Last Myocardial Infarction Date:: 1997 History of Any Multi-Drug Resistant Organisms: MRSA Date of last positivie culture/infection: 2003 MDRO Source:: lt hip Past Surgical History: Appendectomy, Back Surgery, Bowel Resection, Breast Surgery, Cholecystectomy, Hysterectomy, Orthopedic Surgery, Tonsillectomy Additional Past Surgical History / Comment(s): earnest mastectomy, oopherectomy back surgery x5 with last sx cage in back, bowel resection x5-6, earnest. carpal tunnel, lt rotator cuff repair Past Anesthesia/Blood Transfusion Reactions: Previous Problems w/ Anesthesia Additional Past Anesthesia/Blood Transfusion Reaction / Comment(s): experiences anxiety prior to surgery and agitiation. b/p elevates during surgery. woke up during surgery. difficult IV start Past Psychological History: Anxiety, Depression Smoking Status: Never smoker Past Alcohol Use History: Rare Past Drug Use History: None Reported Additional Drug Use History / Comment(s): CBD pill daily stopped 07/30/18 - Past Family History Mother Family Medical History: Cancer Additional Family Medical History / Comment(s): lung Father Family Medical History: Cancer Additional Family Medical History / Comment(s): prostate Brother(s) Family Medical History: Cancer Additional Family Medical History / Comment(s): lung with metastasis Medications and Allergies Home Medications Medication Instructions Recorded Confirmed Type Bumetanide [BUMEX] 2 mg PO DAILY 08/01/18 10/06/19 History Furosemide [Lasix] 80 mg PO DAILY 08/01/18 10/06/19 History Lisinopril [Prinivil] 10 mg PO DAILY 08/01/18 10/06/19 History Metoprolol Succinate (ER) [Toprol 100 mg PO DAILY 08/01/18 10/06/19 History Xl] Pantoprazole Sodium [Protonix] 80 mg PO DAILY 08/01/18 10/06/19 History Potassium Chloride [K-Tab ER] 40 meq PO DAILY 08/01/18 10/06/19 History Docusate [Colace] 100 mg PO DAILY 10/06/19 10/06/19 History Ibuprofen [Motrin] 600 mg PO TID-W/MEALS PRN 10/06/19 10/06/19 History Lidocaine 5% Oint [Xylocaine 5% 1 applic TOPICAL DAILY PRN 10/06/19 10/06/19 History Oint] Meloxicam 15 mg PO DAILY 10/06/19 10/06/19 History Naratriptan HCl 2.5 mg PO DIRECTED PRN 10/06/19 10/06/19 History traMADol HCL 100 mg PO Q6H PRN 10/06/19 10/06/19 History Allergies Allergy/AdvReac Type Severity Reaction Status Date / Time carbamazepine [From Tegretol] Allergy increases Verified 10/06/19 10:19 seizures ciprofloxacin [From Cipro] Allergy Unknown Verified 10/06/19 10:19 clindamycin Allergy Nausea & Verified 10/06/19 10:19 Vomiting doxycycline Allergy Unknown Verified 10/06/19 10:19 morphine Allergy Rash/Hives Verified 10/06/19 10:19 Penicillins Allergy Anaphylaxis Verified 10/06/19 10:19 phenobarbital Allergy Rash/Hives Verified 10/06/19 10:19 phenytoin [From Dilantin] Allergy Anaphylaxis Verified 10/06/19 10:19 Physical Exam Vitals: Vital Signs Temp Pulse Pulse Resp BP BP Pulse Ox 10/08/19 09:00 128 H 19 117/72 10/08/19 08:00 98.3 F 123 H 15 119/67 95 10/08/19 07:00 134 H 17 93/49 95 10/08/19 06:00 103 H 18 101/55 96 10/08/19 05:00 105 H 14 101/63 94 L 10/08/19 04:00 97.8 F 100 16 92/52 93 L 10/08/19 03:00 102 H 14 94/51 94 L 10/08/19 02:00 101 H 15 115/52 94 L 10/08/19 01:00 120 H 11 L 116/74 95 10/08/19 00:00 97.5 F L 113 H 21 94/55 95 10/07/19 23:00 103 H 15 95/68 95 10/07/19 22:00 101 H 16 101/69 96 10/07/19 21:00 105 H 16 125/92 96 10/07/19 20:00 98 F 114 H 14 116/69 95 10/07/19 19:30 104 H 15 98 10/07/19 19:00 102 H 15 97 10/07/19 18:30 103 H 16 99 10/07/19 18:00 115 H 19 99 10/07/19 17:30 125 H 17 99 10/07/19 17:00 118 H 12 96 10/07/19 16:30 112 H 10 L 97 10/07/19 16:00 123 H 20 95 10/07/19 15:35 104 H 14 10/07/19 15:30 118 H 11 L 97 10/07/19 15:00 98.3 F 114 H 14 96 10/07/19 14:35 111 H 7 L 10/07/19 14:16 104 H 18 116/56 98 10/07/19 14:01 97 18 95/51 95 10/07/19 13:46 82 18 100/54 94 L 10/07/19 13:31 76 18 81/55 97 10/07/19 13:15 77 18 95/51 98 10/07/19 12:55 98.3 F 107 H 14 136/82 99 Intake and Output 10/07/19 10/08/19 10/08/19 22:59 06:59 14:59 Intake Total 1840 160 320 Output Total 375 355 145 Balance 1465 -195 175 Intake: IV 40 160 20 Lactated Ringers 1,000 ml 40 160 20 @ 20 mls/hr IV .Q24H [facility] Rx#:[id number] Intake, IV Titration 1800 300 Amount ACETAMINOPHEN IV (For NPO 100 ) 1,000 mg In Empty Bag 1 bag @ 400 mls/hr IVPB Q6HR [facility] Rx#:[id number] Cefepime 2 gm In Sodium 100 Chloride 0.9% 100 ml @ 200 mls/hr IVPB Q12HR [facility] Rx#:[id number] Cefepime 2 gm In Sodium 100 Chloride 0.9% 100 ml @ 200 mls/hr IVPB Q8HR [facility] Rx#:[id number] Lactated Ringers 1,000 ml 1500 @ 125 mls/hr IV .Q8H [facility] Rx#:[id number] Potassium Chloride 10 meq 100 In Water For Injection 1 100ml.bag @ 100 mls/hr IVPB Q1HR [facility] Rx#: [id number] metroNIDAZOLE-NS PMX 500 100 100 mg In Saline 1 100ml.bag @ 100 mls/hr IVPB Q8HR [facility] Rx#:[id number] Output: Urine 375 355 145 Other: Voiding Method Indwelling Catheter Indwelling Catheter Indwelling Catheter Weight 69.7 kg ABP, PAP, CO, CI - Last 8 Hours Arterial Blood Pressure 115/54 - Constitutional General appearance: no acute distress - Respiratory Respiratory: bilateral: diminished - Cardiovascular Rhythm: regular Heart sounds: normal: S1, S2 Results 10/08/19 04:00 10/08/19 04:00 CBC 10/08/19 Range/Units 04:00 WBC 12.7 H (3.8-10.6) k/uL RBC 3.55 L (3.80-5.40) m/uL Hgb 9.9 L D (11.4-16.0) gm/dL Hct 31.3 L (34.0-46.0) % Plt Count 242 (150-450) k/uL Comprehensive Metabolic Panel 10/08/19 Range/Units 04:00 Sodium 140 (137-145) mmol/L Potassium 3.2 L (3.5-5.1) mmol/L Chloride 114 H (98-107) mmol/L Carbon Dioxide 20 L (22-30) mmol/L BUN 9 (7-17) mg/dL Creatinine 0.49 L (0.52-1.04) mg/dL Glucose 125 H (74-99) mg/dL Calcium 8.5 (8.4-10.2) mg/dL Current Medications Generic Name Dose Route Start Last Admin Trade Name Freq PRN Reason Stop Dose Admin Acetaminophen 650 mg 10/06/19 10:54 Tylenol Tab PO Q6HR PRN Mild Pain or Fever > 100.5 Bumetanide 2 mg 10/07/19 09:00 10/08/19 01:25 Bumex PO Not Given DAILY [facility] Enoxaparin Sodium 40 mg 10/08/19 09:00 10/08/19 08:20 Lovenox SQ 40 mg DAILY [facility] Administration Furosemide 80 mg 10/07/19 09:00 10/07/19 07:48 Lasix PO Not Given DAILY [facility] Hydromorphone HCl 0.5 mg 10/06/19 10:54 10/06/19 16:04 Dilaudid IVP 0.5 mg Q3HR PRN Administration Moderate Pain Hydromorphone HCl 1 mg 10/06/19 16:14 10/08/19 08:22 Dilaudid IVP 1 mg Q2HR PRN Administration SEVERE Pain Hydromorphone HCl 0.5 mg 10/07/19 13:01 Dilaudid IVP Q3HR PRN Moderate to Severe Pain Metronidazole 500 mg/ IV 100 mls @ 100 mls/hr 10/06/19 16:00 10/08/19 08:20 Solution IVPB 100 mls/hr Q8HR [facility] Administration Cefepime HCl 2 gm/ Sodium 100 mls @ 200 mls/hr 10/07/19 00:00 10/08/19 08:21 Chloride IVPB 200 mls/hr Q8HR [facility] Administration Lactated Ringer's 1,000 mls @ 20 mls/hr 10/06/19 20:30 10/07/19 19:59 Lactated Ringers IV 20 mls/hr .Q24H [facility] Administration Acetaminophen 1,000 mg/ IV 100 mls @ 400 mls/hr 10/07/19 18:00 10/08/19 06:05 Solution IVPB 10/08/19 12:14 400 mls/hr Q6HR [facility] Administration Lisinopril 10 mg 10/07/19 09:00 10/07/19 07:57 Zestril PO 10 mg DAILY [facility] Administration Lorazepam 0.5 mg 10/06/19 12:59 10/08/19 06:09 Ativan IV 0.5 mg Q4HR PRN Administration Anxiety Metoclopramide HCl 10 mg 10/07/19 13:01 Reglan IVP Q6H PRN Nausea And Vomiting Metoprolol Succinate 50 mg 10/07/19 09:00 10/07/19 07:57 Toprol Xl PO 50 mg DAILY [facility] Administration Metoprolol Tartrate 2.5 mg 10/08/19 07:25 Lopressor IVP Q6HR PRN HR >120 Miscellaneous Information 1 each 10/08/19 04:37 Potassium Per Protocol MISCELLANE DAILY PRN Per Protocol Protocol Naloxone HCl 0.2 mg 10/06/19 10:54 Narcan IV Q2M PRN Opioid Reversal Naloxone HCl 0.2 mg 10/07/19 13:01 Narcan IV Q2M PRN Opioid Reversal Ondansetron HCl 4 mg 10/06/19 10:54 10/07/19 23:54 Zofran IVP 4 mg Q8HR PRN Administration Nausea And Vomiting Ondansetron HCl 4 mg 10/07/19 13:01 Zofran IVP Q8HR PRN Nausea And Vomiting Pantoprazole Sodium 40 mg 10/07/19 09:00 10/08/19 08:20 Protonix IV 40 mg DAILY [facility] Administration Intake and Output 10/07/19 10/08/19 10/08/19 22:59 06:59 14:59 Intake Total 1840 160 320 Output Total 375 355 145 Balance 1465 -195 175 Intake: IV 40 160 20 Lactated Ringers 1,000 ml 40 160 20 @ 20 mls/hr IV .Q24H [facility] Rx#:[id number] Intake, IV Titration 1800 300 Amount ACETAMINOPHEN IV (For NPO 100 ) 1,000 mg In Empty Bag 1 bag @ 400 mls/hr IVPB Q6HR [facility] Rx#:[id number] Cefepime 2 gm In Sodium 100 Chloride 0.9% 100 ml @ 200 mls/hr IVPB Q12HR [facility] Rx#:[id number] Cefepime 2 gm In Sodium 100 Chloride 0.9% 100 ml @ 200 mls/hr IVPB Q8HR [facility] Rx#:[id number] Lactated Ringers 1,000 ml 1500 @ 125 mls/hr IV .Q8H [facility] Rx#:[id number] Potassium Chloride 10 meq 100 In Water For Injection 1 100ml.bag @ 100 mls/hr IVPB Q1HR [facility] Rx#: [id number] metroNIDAZOLE-NS PMX 500 100 100 mg In Saline 1 100ml.bag @ 100 mls/hr IVPB Q8HR [facility] Rx#:[id number] Output: Urine 375 355 145 Other: Voiding Method Indwelling Catheter Indwelling Catheter Indwelling Catheter Weight 69.7 kg 10/08/19 04:00 10/08/19 04:00 Assessment and Plan Assessment: Assessment #1 small bowel obstruction and status post surgery. The patient is known to have recurrent small bowel obstruction #2 abdominal discomfort #3 sinus tachycardia #4 hypertension #5Dyslipidemia Plan #1 the patient doesn't seem to be in any overt congestive heart failure at this point #2 obtain an echocardiogram was Doppler #3 start the patient on metoprolol IV #4 continue monitor the patient hemodynamically #5 monitor the hemoglobin and electrolytes #6 follow-up with the patient Thank you for allowing us participate in her care
--- NOTE | 2019-10-08 10:58 | ECHOF ---
Referral Reason:chf MEASUREMENTS -------- HEIGHT: 152.4 cm WEIGHT: 69.4 kg BP: 93/49 IVSd: 1.0 cm (0.6 - 1.1) LVIDd: 2.7 cm (3.9 - 5.3) LVPWd: 1.1 cm (0.6 - 1.1) IVSs: 1.7 cm LVIDs: 1.7 cm LVPWs: 1.6 cm Ao Diam: 2.9 cm (2.0 - 3.7) AV Cusp: 1.9 cm (1.5 - 2.6) LA Diam: 4.0 cm (2.7 - 3.8) MV EXCURSION: 15.965 mm (> 18.000) MV EF SLOPE: 75 mm/s (70 - 150) EPSS: 0.9 cm MV E Stanton: 0.83 m/s MV DecT: 158 ms MV A Stanton: 0.41 m/s MV E/A Ratio: 2.02 RAP: 5.00 mmHg RVSP: 24.18 mmHg FINDINGS -------- Resting tachycardia (HR>100bpm). This was a technically difficult study with suboptimal views. Pt. Has Breast inplants Limited vie ws due to pt having surgery and bandaged up. The left ventricular size is normal. Left ventricular wall thickness is normal. Overall left vent ricular systolic function is normal with, an EF between 60 - 65 %. The right ventricle is normal in size. The left atrial size is normal. The right atrial size is normal. The aortic valve is trileaflet and appears structurally normal. The mitral valve is normal. There is trace mitral regurgitation. The tricuspid valve appears structurally normal. Trace tricuspid regurgitation present. Right zelda tricular systolic pressure is normal at < 35 mmHg. There is no pulmonic regurgitation present. The aortic root size is normal. IVC Not well visulized. There is no pericardial effusion. CONCLUSIONS -------- 1. Resting tachycardia (HR>100bpm). 2. This was a technically difficult study with suboptimal views. 3. Pt. Has Breast inplants 4. Limited views due to pt having surgery and bandaged up. 5. The left ventricular size is normal. 6. Left ventricular wall thickness is normal. 7. Overall left ventricular systolic function is normal with, an EF between 60 - 65 %. 8. The right ventricle is normal in size. 9. The left atrial size is normal. 10. The right atrial size is normal. 11. The aortic valve is trileaflet and appears structurally normal. 12. The mitral valve is normal. 13. There is trace mitral regurgitation. 14. The tricuspid valve appears structurally normal. 15. Trace tricuspid regurgitation present. 16. Right ventricular systolic pressure is normal at < 35 mmHg. 17. There is no pulmonic regurgitation present. 18. The aortic root size is normal. 19. IVC Not well visulized. 20. There is no pericardial effusion. APPIAN BPM DEVELOPER: Vanesa Schultz RDCS
[2019-10-08] MEDS: METOPROLOL SUCCINATE (ER) 50 MG TAB.ER.24H PO SCH (11:14)
[2019-10-08] MEDS: LISINOPRIL 10 MG TAB PO SCH (11:14)
[2019-10-08] MEDS: FUROSEMIDE 80 MG TAB PO SCH (11:14)
--- NOTE | 2019-10-08 11:18 | P.PN ---
Subjective Progress Note Date: 10/08/19 64-year-old female patient was admitted for abdominal pain and bloating. The patient is known to have previous history of partial bowel resection and she has had multiple previous bowel obstructions. Patient reported that she was having significant amount of pain in her left upper and lower quadrants. NG tube was inserted in the emergency department as the patient was given a CAT scan of the abdomen and pelvis that showed extensive surgical changes involving the bowel loops in the mid in the lower abdomen into the upper pelvis with focal fluid and fecal dilatation. Surrounding inflammatory changes noted. Findings were consistent with partial bowel obstruction and the possibility of closed loop obstruction or internal hernia cannot be completely excluded. There was no significant proximal dilatation and the findings were more localized. There was also fairly moderate extrahepatic and mild intrahepatic biliary dilatation noted. Also, there was a small to moderate-sized hiatal hernia. The stomach was poorly distended. No suspicious dilatation of the duodenal sweep. There was also scattered peripheral colonic diverticuli noted. The white cell count was 15.3. The liver function tests were within normal limits. Amylase lipase within normal limits. The patient was taken to the operating room today by Dr. Koehler and the patient underwent expiratory laparotomy. The patient was found to have frozen abdomen with extensive adhesions. The patient underwent lysis of adhesions and small bowel resection 2 and repair of an incisional hernia was also done. Postop, the patient was extubated in the operating room and the patient was brought into the intensive care unit for further monitoring. The patient is on normal saline at the rate of 60 mL an hour and she is also rec eiving lactated Ringer at the rate of 125 mL an hour. She is on IV cefepime as an empiric antibiotic coverage in combination with Flagyl. The patient is on Lovenox 40 prophylaxis 40 mg subcu every 24 hours. She is also on Dilaudid for pain control. She is awake and alert and her pain is under adequate control. She is wearing an abdominal bounded. Surgical wound site is dry clean and intact. No drains noted. On today's evaluation of 62,020, I'm seeing this patient for a follow-up. The patient is postop day #1. No abdominal distention. She still having abdominal pain and she is requiring Dilaudid every 2 hours around 1 mg IV push. NG tube is in place and output is minimal. This surgical wound site is dry clean and intact. The patient has nearly absent or hypoactive bowel sounds. She still on lactated Ringer at the rate of 1 25 mL an hour. She is on 2 L of oxygen by nasal cannula with a pulse of 96%. No fever. No chills. No other significant events overnight. She is otherwise calm and comfortable and she is using incentive spirometer. Objective - Vital Signs Vital signs: Vital Signs Temp 98.3 F 10/08/19 08:00 Pulse 124 H 10/08/19 10:00 Resp 15 10/08/19 10:00 BP 111/61 10/08/19 10:00 Pulse Ox 95 10/08/19 10:00 Intake & Output 10/07/19 10/08/19 10/08/19 18:59 06:59 18:59 Intake Total 2850 550 420 Output Total 600 550 220 Balance 2250 0 200 Weight 69.7 kg Intake: IV 1400 200 20 Lactated Ringers 1,000 ml 200 20 @ 20 mls/hr IV .Q24H [facility] Rx#:[id number] Intake, IV Titration 1450 350 400 Amount ACETAMINOPHEN IV (For NPO 100 ) 1,000 mg In Empty Bag 1 bag @ 400 mls/hr IVPB Q6HR [facility] Rx#:[id number] Cefepime 2 gm In Sodium 100 Chloride 0.9% 100 ml @ 200 mls/hr IVPB Q12HR [facility] Rx#:[id number] Cefepime 2 gm In Sodium 100 Chloride 0.9% 100 ml @ 200 mls/hr IVPB Q8HR [facility] Rx#:[id number] Lactated Ringers 1,000 ml 1250 250 @ 125 mls/hr IV .Q8H [facility] Rx#:[id number] Potassium Chloride 10 meq 200 In Water For Injection 1 100ml.bag @ 100 mls/hr IVPB Q1HR [facility] Rx#: [id number] metroNIDAZOLE-NS PMX 500 100 100 mg In Saline 1 100ml.bag @ 100 mls/hr IVPB Q8HR [facility] Rx#:[id number] Output: Urine 400 550 220 Estimated Blood Loss 200 Other: Voiding Method Indwelling Catheter Indwelling Catheter Indwelling Catheter ABP, PAP, CO, CI - Last Documented Arterial Blood Pressure 115/54 - Exam Gen. appearance she is calm comfortable sedated no acute distress. Currently her 2liters of oxygen by nasal cannula. Head exam was generally normal. There was no scleral icterus or corneal arcus. Mucous membranes were moist. Neck was supple and without jugular venous distension, thyromegaly, or carotid bruits. Carotids were easily palpable bilaterally. There was no adenopathy. Abdomen is showing postsurgical changes and the incision is dry clean and intact over the mid of the abdominal wall. Bowel sounds are absent. The patient is wearing an abdominal bounded. No direct tenderness. No rebound tenderness. No guarding. No drains noted. Lungs were clear to auscultation and percussion, and with normal diaphragmatic excursion. No wheezes or rales were noted. Cardiac exam revealed the PMI to be normally situated and sized. The rhythm was regular and no extrasystoles were noted during several minutes of auscultation. The first and second heart sounds were normal and physiologic splitting of the second heart sound was noted. There were no murmurs, rubs, clicks, or gallops. Examination of the extremities revealed easily palpable radial, femoral and pedal pulses. There was no cyanosis, clubbing or edema. Examination of the skin revealed no evidence of significant rashes, suspicious appearing nevi or other concerning lesions. Neurologically the patient is awake and alert and there is no focal neurological deficit. - Labs CBC & Chem 7: 10/08/19 04:00 10/08/19 04:00 Labs: Abnormal Lab Results - Last 24 Hours (Table) 10/07/19 10/08/19 10/08/19 Range/Units 14:45 04:00 04:00 WBC 12.7 H (3.8-10.6) k/uL RBC 3.55 L (3.80-5.40) m/uL Hgb 9.9 L D (11.4-16.0) gm/dL Hct 31.3 L (34.0-46.0) % Neutrophils # 11.1 H (1.3-7.7) k/uL Lymphocytes # 0.7 L (1.0-4.8) k/uL Potassium 3.2 L (3.5-5.1) mmol/L Chloride 114 H (98-107) mmol/L Carbon Dioxide 20 L (22-30) mmol/L Creatinine 0.49 L (0.52-1.04) mg/dL Glucose 125 H (74-99) mg/dL POC Glucose (mg/dL) 179 H (75-99) mg/dL Microbiology - Last 24 Hours (Table) 10/06/19 23:30 Urine Culture - Final Urine,Voided 10/06/19 18:21 Blood Culture - Preliminary Blood No Growth after 24 hours Assessment and Plan Plan: 1 recurrent small bowel obstruction, post exploratory laparotomy for bowel obstruction requiring extensive lysis of adhesions, small bowel resection 2, repair of an incisional hernia and the patient is postop day #1. The patient is known to have his Adacel bowel obstruction and she has required multiple abdominal surgeries including bowel resections and the patient has extensive adhesions as noted intraoperatively. She is recovering nicely. She still has high. Requirements and she is requiring Dilaudid frequently for pain control. NG tube output is minimal. Hemodynamically stable. 2 history of multiple bowel surgeries for small bowel obstruction, most of the surgeries were done in [facility]. 3 abdominal pain secondary to above 4 history of malignancies including breast cancer with previous bilateral mastectomy and previous history of hysterectomy for uterine cancer 5 history of CVA 6 history of DVT, 7 history of coronary artery disease with previous NM 8 previous history of seizure many years back 9 small hiatal hernia 10 diverticulosis 11 hypertension 12 chronic anxiety/depression 13 chronic osteoarthritis Plan Check chest x-ray in a.m shows some lateral subsegmental consolidation/atelectasis. IV fluids with lactated Ringer at 125 mL an hour Continue the combination of IV cefepime and Flagyl Lovenox for DVT prophylaxis Keep NG tube in place Dilaudid for pain control We'll continue to follow. Asked the patient to use the incentive spirometer and asked the patient to be moved up on a chair.
--- NOTE | 2019-10-08 14:12 | P.PN ---
Subjective Patient is a pleasant the 64-year-old female came in with bowel obstruction, patient underwent expiratory laparotomy with additional lysis bowel resection, repair of incisional hernia. Patient was subsequently admitted to ICU and patient the was started on antibiotics for colitis with cefepime and Flagyl. There is no evidence of heart failure because of which I'm not discontinuing diuretics at this time. Patient has sinus tachycardia today patient is an NG tube with minimal output. Patient has hyperactive bowel sounds atelectasis on the chest x-ray. Constitutional: Denied any fatigue denied any fever. Cardio vascular: denied any chest pain, palpitations Gastrointestinal denied any nausea vomiting Pulmonary: Denied any shortness of breath cough Neurologic denied any new focal deficits All inpatient medications were reviewed and appropriate changes in these medications as dictated in the interval history and assessment and plan. Objective - Vital Signs Vital signs: Vital Signs Temp 98.3 F 10/08/19 08:00 Pulse 138 H 10/08/19 13:00 Resp 13 10/08/19 13:00 BP 116/66 10/08/19 13:00 Pulse Ox 98 10/08/19 13:00 Intake & Output 10/07/19 10/08/19 10/08/19 18:59 06:59 18:59 Intake Total 2850 550 600 Output Total 600 550 900 Balance 2250 0 -300 Weight 69.7 kg Intake: IV 1400 200 100 Lactated Ringers 1,000 ml 200 100 @ 20 mls/hr IV .Q24H [facility] Rx#:[id number] Intake, IV Titration 1450 350 500 Amount ACETAMINOPHEN IV (For NPO 100 100 ) 1,000 mg In Empty Bag 1 bag @ 400 mls/hr IVPB Q6HR [facility] Rx#:[id number] Cefepime 2 gm In Sodium 100 Chloride 0.9% 100 ml @ 200 mls/hr IVPB Q12HR [facility] Rx#:[id number] Cefepime 2 gm In Sodium 100 Chloride 0.9% 100 ml @ 200 mls/hr IVPB Q8HR [facility] Rx#:[id number] Lactated Ringers 1,000 ml 1250 250 @ 125 mls/hr IV .Q8H [facility] Rx#:[id number] Potassium Chloride 10 meq 200 In Water For Injection 1 100ml.bag @ 100 mls/hr IVPB Q1HR [facility] Rx#: [id number] metroNIDAZOLE-NS PMX 500 100 100 mg In Saline 1 100ml.bag @ 100 mls/hr IVPB Q8HR [facility] Rx#:[id number] Output: Gastric Drainage 500 Urine 400 550 400 Estimated Blood Loss 200 Other: Voiding Method Indwelling Catheter Indwelling Catheter Indwelling Catheter ABP, PAP, CO, CI - Last Documented Arterial Blood Pressure 115/54 - Exam PHYSICAL EXAMINATION: GENERAL: The patient is alert and oriented x3, not in any acute distress. Well developed, well nourished. 2 L of thoracic cannula oxygen HEENT: Pupils are round and equally reacting to light. EOMI. No scleral icterus. No conjunctival pallor. Normocephalic, atraumatic. No pharyngeal erythema. No thyromegaly. CARDIOVASCULAR: S1 and S2 present. No murmurs, rubs, or gallops. PULMONARY: Chest is clear to auscultation, no wheezing or crackles. ABDOMEN: Normal bowel binder in place sluggish bowel sounds NG tube in place MUSCULOSKELETAL: No joint swelling or deformity. EXTREMITIES: No cyanosis, clubbing, or pedal edema. NEUROLOGICAL: Gross neurological examination did not reveal any focal deficits. SKIN: No rashes. - Labs CBC & Chem 7: 10/08/19 04:00 10/08/19 04:00 Labs: Abnormal Lab Results - Last 24 Hours (Table) 10/07/19 10/08/19 10/08/19 Range/Units 14:45 04:00 04:00 WBC 12.7 H (3.8-10.6) k/uL RBC 3.55 L (3.80-5.40) m/uL Hgb 9.9 L D (11.4-16.0) gm/dL Hct 31.3 L (34.0-46.0) % Neutrophils # 11.1 H (1.3-7.7) k/uL Lymphocytes # 0.7 L (1.0-4.8) k/uL Potassium 3.2 L (3.5-5.1) mmol/L Chloride 114 H (98-107) mmol/L Carbon Dioxide 20 L (22-30) mmol/L Creatinine 0.49 L (0.52-1.04) mg/dL Glucose 125 H (74-99) mg/dL POC Glucose (mg/dL) 179 H (75-99) mg/dL Microbiology - Last 24 Hours (Table) 10/06/19 23:30 Urine Culture - Final Urine,Voided 10/06/19 18:21 Blood Culture - Preliminary Blood No Growth after 24 hours Assessment and Plan Plan: -recurrent small bowel obstruction status post exploratory laparotomy additional lysis, and small bowel resection incisional hernia repair and operative findings of colitis for which patient is an above-mentioned antibiotics. Can you with the NG tube continue with cefepime and metronidazole -Sinus tachycardia due to assessment #1 continue with lactated Ringer's -History of DVT in the past patient will be resumed on Lovenox for DVT prophylaxis -Coronary artery disease -Seizure disorder -Hypertension -Depression -Osteoarthritis for above-mentioned chronic medical problems I'll continue with the her appropriate home medications although patient is presently nothing by mouth
--- NOTE | 2019-10-08 14:42 | P.PN ---
Subjective Progress Note Date: 10/08/19 CHIEF COMPLAINT: Abdominal pain HISTORY OF PRESENT ILLNESS: 64 showed female who is status post exploratory laparotomy, lysis of extensive adhesions, small bowel resection 2, incisional hernia repair. Postop day #1. Patient examined at the bedside Dr. Artis. Patient reports abdominal pain, but states it is tolerable at this time. She is requiring IV Dilaudid for pain control. She is mildly tachycardic. Afebrile. WBC 12.7. Hemoglobin 9.9. PHYSICAL EXAM: VITAL SIGNS: Reviewed. GENERAL: Well-developed in no acute distress. HEENT: No sclera icterus. Extraocular movements grossly intact. Moist buccal mucosa. Head is atraumatic, normocephalic. ABDOMEN: Soft. Nondistended. Appropriate surgical tenderness. Dressing clean dry and intact. NG tube to low intermittent suction NEUROLOGIC: Alert and oriented. Cranial nerves II through XII grossly intact. ASSESSMENT: 1. Small bowel obstruction PLAN: -NPO -Continue NG tube -IV antibiotics -1L LR bolus x 1 -Continue ventura catheter Nurse practitioner note has been reviewed by physician. Signing provider agrees with the documented findings, assessment, and plan of care. Objective - Vital Signs Vital signs: Vital Signs Temp 98.3 F 10/08/19 08:00 Pulse 112 H 10/08/19 11:00 Resp 8 L 10/08/19 11:49 BP 97/54 10/08/19 11:00 Pulse Ox 98 10/08/19 11:00 Intake & Output 10/07/19 10/08/19 10/08/19 18:59 06:59 18:59 Intake Total 2850 550 440 Output Total 600 550 280 Balance 2250 0 160 Weight 69.7 kg Intake: IV 1400 200 40 Lactated Ringers 1,000 ml 200 40 @ 20 mls/hr IV .Q24H [facility] Rx#:[id number] Intake, IV Titration 1450 350 400 Amount ACETAMINOPHEN IV (For NPO 100 ) 1,000 mg In Empty Bag 1 bag @ 400 mls/hr IVPB Q6HR [facility] Rx#:[id number] Cefepime 2 gm In Sodium 100 Chloride 0.9% 100 ml @ 200 mls/hr IVPB Q12HR [facility] Rx#:[id number] Cefepime 2 gm In Sodium 100 Chloride 0.9% 100 ml @ 200 mls/hr IVPB Q8HR [facility] Rx#:[id number] Lactated Ringers 1,000 ml 1250 250 @ 125 mls/hr IV .Q8H [facility] Rx#:[id number] Potassium Chloride 10 meq 200 In Water For Injection 1 100ml.bag @ 100 mls/hr IVPB Q1HR [facility] Rx#: [id number] metroNIDAZOLE-NS PMX 500 100 100 mg In Saline 1 100ml.bag @ 100 mls/hr IVPB Q8HR [facility] Rx#:[id number] Output: Urine 400 550 280 Estimated Blood Loss 200 Other: Voiding Method Indwelling Catheter Indwelling Catheter Indwelling Catheter ABP, PAP, CO, CI - Last Documented Arterial Blood Pressure 115/54 - Labs CBC & Chem 7: 10/08/19 04:00 10/08/19 04:00 Labs: Abnormal Lab Results - Last 24 Hours (Table) 10/07/19 10/08/19 10/08/19 Range/Units 14:45 04:00 04:00 WBC 12.7 H (3.8-10.6) k/uL RBC 3.55 L (3.80-5.40) m/uL Hgb 9.9 L D (11.4-16.0) gm/dL Hct 31.3 L (34.0-46.0) % Neutrophils # 11.1 H (1.3-7.7) k/uL Lymphocytes # 0.7 L (1.0-4.8) k/uL Potassium 3.2 L (3.5-5.1) mmol/L Chloride 114 H (98-107) mmol/L Carbon Dioxide 20 L (22-30) mmol/L Creatinine 0.49 L (0.52-1.04) mg/dL Glucose 125 H (74-99) mg/dL POC Glucose (mg/dL) 179 H (75-99) mg/dL Microbiology - Last 24 Hours (Table) 10/06/19 23:30 Urine Culture - Final Urine,Voided 10/06/19 18:21 Blood Culture - Preliminary Blood No Growth after 24 hours
[2019-10-08] MEDS: LACTATED RINGERS 1,000 ML IV SCH (19:46)
[2019-10-08] MEDS: METOPROLOL TARTRATE 5 MG/5 ML VIAL IVP PRN (22:09)
[2019-10-09] MEDS: HYDROmorphone 1 MG/ML 1 ML SYRINGE IVP PRN ×9 (00:08→20:20)
[2019-10-09] MEDS: LORazepam 2 MG/ML INJ IV PRN ×5 (02:54→23:12)
[2019-10-09] MEDS: METOPROLOL TARTRATE 5 MG/5 ML VIAL IVP PRN (03:16)
[2019-10-09] MEDS: METOCLOPRAMIDE 5 MG/ML 2 ML VIAL IVP PRN (04:41)
[2019-10-09 05:56] LABS: African American GFR (CKD) >90 (>60 ml/min/1.73 sqM); Anion Gap 4 mmol/L; Blood Urea Nitrogen 8 mg/dL (7-17); Calcium 8.4 mg/dL (8.4-10.2); Carbon Dioxide 21 mmol/L (22-30); Chloride 113 mmol/L (98-107); Glucose 88 mg/dL (74-99); Non-African American GFR(CKD) >90 (>60 ml/min/1.73 sqM); Potassium 3.5 mmol/L (3.5-5.1); Sodium 138 mmol/L (137-145)
[2019-10-09] MEDS: POTASSIUM CHLORIDE 10 MEQ in WATER FOR INJECTION 1 100ML.BAG IVPB SCH ×4 (06:07→09:41)
[2019-10-09 06:40] LABS: Basophils % (A) 0 %; Eosinophils # (A) 0.1 k/uL (0-0.7); Eosinophils % (A) 1 %; HCT 24.8 % (34.0-46.0); Hypochromasia Moderate; Lymphocytes # (A) 1.1 k/uL (1.0-4.8); Lymphocytes % (A) 9 %; MCHC 32.6 g/dL (31.0-37.0); MCV 85.9 fL (80.0-100.0); Mean Platelet Volume 7.7; Monocytes # (A) 0.6 k/uL (0-1.0); Monocytes % (A) 4 %; Neutrophils # (A) 10.8 k/uL (1.3-7.7); Neutrophils % (A) 85 %; Platelet Count 210 k/uL (150-450); RBC 2.88 m/uL (3.80-5.40); RDW 14.3 % (11.5-15.5); WBC 12.7 k/uL (3.8-10.6)
[2019-10-09 06:48] LABS: HGB 8.1 gm/dL (11.4-16.0)
[2019-10-09] MEDS ORDERED: METOPROLOL TARTRATE 5 MG/5 ML VIAL IVP PRN ×2 (07:08→13:49)
[2019-10-09] MEDS ORDERED: DILTIAZEM DRIP BOLUS FROM BAG 1 MG SOLN IV ONE (07:21)
[2019-10-09] MEDS: DILTIAZEM 125 MG in SODIUM CHLORIDE 0.9% 100 ML IV SCH ×2 (07:21→17:50)
[2019-10-09] MEDS: metroNIDAZOLE-NS PMX 500 MG in SALINE 1 100ML.BAG IVPB SCH ×3 (08:23→23:13)
[2019-10-09] MEDS ORDERED: DILTIAZEM DRIP BOLUS FROM BAG 1 MG SOLN IV STA (08:54)
--- NOTE | 2019-10-09 09:07 | P.PN ---
Subjective Progress Note Date: 10/09/19 Principal diagnosis: Paroxysmal atrial fibrillation This is a very pleasant 64-year-old female patient was requested to see for further cardiac evaluation. The patient does have a past medical history significant for hypertension as well as dyslipidemia. Also she does have a h istory of multiple abdominal surgery was partial bowel resection. This time she presented to the hospital complaining of abdominal discomfort as well as blunting. NG tube was inserted and the patient subsequently underwent a computed tomography scan and that revealed focal diabetes elevation of the bowel. Subsequently the patient underwent surgery again where she underwent for resection. We consulted to see the patient for further cardiac evaluation. The patient was seen at bedside today and she denies any symptoms of chest pain or chest discomfort or shortness of breath. She is in pain because of the abdominal surgery. Hemodynamically she is a stable except that she is in sinus tachycardia with a heart rate around 120 beats per minutes. Currently the patient is nothing by mouth. I am going to start the patient on metoprolol IV at 2.5 mg every 6 hours unless her pressure dropped below 90 mmHg systolic. She is not aware of any prior history of coronary artery disease and she stated that she underwent a heart catheterization about 2 years ago and that was unremarkable. She does have hypertension as well as dyslipidemia. The EKG showed only sinus tachycardia. I am going also to obtain an echocardiogram with Doppler. There was some concern regarding regarding congestive heart failure but the patient doesn't seems to be in overt heart failure at this point. We will continue the patient on the IV metoprolol until she is not nothing by mouth anymore. The echo was ordered will follow-up with that. The patient was seen today, 10/09/2019. She continues to have abdominal discomfort. She went into atrial fibrillation with RVR earlier today. I did start the patient on Cardizem IV with bolus and drip and the dose was increased to 10 mg per hour. If she continues to be tachycardic I would add amiodarone was bolus and drip to the current medical regimen. I would hold on any anticoagulation at this point in view of the recent abdominal surgery. The echo was performed and revealed normal left ventricular systolic function without significant valvular abnormalities. Objective - Vital Signs Vital signs: Vital Signs Temp 98.7 F 10/09/19 08:00 Pulse 168 H 10/09/19 08:00 Resp 22 10/09/19 08:00 BP 120/109 06/04/20 08:00 Pulse Ox 91 L 10/09/19 07:40 Intake & Output 10/08/19 10/09/19 10/09/19 18:59 06:59 18:59 Intake Total 1845 1025 100 Output Total 1170 895 170 Balance 675 130 -70 Weight 69.3 kg Intake: IV 1345 825 0 Lactated Ringers 1,000 ml 1345 825 0 @ 75 mls/hr IV .[id number] [facility] Rx#:[id number] Intake, IV Titration 500 200 100 Amount ACETAMINOPHEN IV (For NPO 100 ) 1,000 mg In Empty Bag 1 bag @ 400 mls/hr IVPB Q6HR [facility] Rx#:[id number] Cefepime 2 gm In Sodium 100 100 Chloride 0.9% 100 ml @ 200 mls/hr IVPB Q8HR [facility] Rx#:[id number] Potassium Chloride 10 meq 200 100 In Water For Injection 1 100ml.bag @ 100 mls/hr IVPB Q1HR [facility] Rx#: [id number] metroNIDAZOLE-NS PMX 500 100 100 mg In Saline 1 100ml.bag @ 100 mls/hr IVPB Q8HR [facility] Rx#:[id number] Output: Gastric Drainage 500 Urine 670 895 170 Other: Voiding Method Indwelling Catheter Indwelling Catheter ABP, PAP, CO, CI - Last Documented Arterial Blood Pressure 115/54 - Constitutional General appearance: Present: no acute distress - Respiratory Respiratory: bilateral: diminished - Cardiovascular Rhythm: irregularly irregular Heart sounds: normal: S1, S2 - Labs CBC & Chem 7: 10/09/19 06:14 10/09/19 05:28 Labs: Abnormal Lab Results - Last 24 Hours (Table) 10/09/19 10/09/19 Range/Units 05:28 06:14 WBC 12.7 H (3.8-10.6) k/uL RBC 2.88 L (3.80-5.40) m/uL Hgb 8.1 L D (11.4-16.0) gm/dL Hct 24.8 L (34.0-46.0) % Neutrophils # 10.8 H (1.3-7.7) k/uL Chloride 113 H (98-107) mmol/L Carbon Dioxide 21 L (22-30) mmol/L Creatinine 0.42 L (0.52-1.04) mg/dL Microbiology - Last 24 Hours (Table) 10/06/19 18:21 Blood Culture - Preliminary Blood No Growth after 48 hours Assessment and Plan Assessment: Assessment #1 small bowel obstruction and status post surgery. The patient is known to have recurrent small bowel obstruction #2 paroxysmal atrial fibrillation. Currently the patient is in A. fib with RVR #3 sinus tachycardia #4 hypertension #5 Dyslipidemia Plan #1 start the patient on Cardizem drip with bolus to start with #2 add amiodarone bolus and drip if she continues to be tachycardic #3 the echo was reviewed and showed normal LV function #4 follow-up with the patient
[2019-10-09] MEDS: CEFEPIME 2 GM in SODIUM CHLORIDE 0.9% 100 ML IVPB SCH ×3 (09:41→23:15)
[2019-10-09] MEDS: METOPROLOL SUCCINATE (ER) 50 MG TAB.ER.24H PO SCH (09:45)
[2019-10-09] MEDS: PANTOPRAZOLE 40 MG/10 ML VIAL IV SCH (10:14)
[2019-10-09] MEDS: ENOXAPARIN 40 MG/0.4 ML SYRINGE SQ SCH (10:14)
[2019-10-09] MEDS: LACTATED RINGERS 1,000 ML IV SCH ×2 (10:15→23:12)
[2019-10-09] MEDS ORDERED: AMIODARONE 360 MG in DEXTROSE 5% IN WATER 200 ML IV ONE ×2 (10:45)
[2019-10-09] MEDS ORDERED: DEXTROSE 5% IN WATER 100 ML with AMIODARONE 150 MG IV ONE (10:45)
--- NOTE | 2019-10-09 10:53 | P.PN ---
Subjective Progress Note Date: 10/09/19 64-year-old female patient was admitted for abdominal pain and bloating. The patient is known to have previous history of partial bowel resection and she has had multiple previous bowel obstructions. Patient reported that she was having significant amount of pain in her left upper and lower quadrants. NG tube was inserted in the emergency department as the patient was given a CAT scan of the abdomen and pelvis that showed extensive surgical changes involving the bowel loops in the mid in the lower abdomen into the upper pelvis with focal fluid and fecal dilatation. Surrounding inflammatory changes noted. Findings were consistent with partial bowel obstruction and the possibility of closed loop obstruction or internal hernia cannot be completely excluded. There was no significant proximal dilatation and the findings were more localized. There was also fairly moderate extrahepatic and mild intrahepatic biliary dilatation noted. Also, there was a small to moderate-sized hiatal hernia. The stomach was poorly distended. No suspicious dilatation of the duodenal sweep. There was also scattered peripheral colonic diverticuli noted. The white cell count was 15.3. The liver function tests were within normal limits. Amylase lipase within normal limits. The patient was taken to the operating room today by Dr. Koehler and the patient underwent expiratory laparotomy. The patient was found to have frozen abdomen with extensive adhesions. The patient underwent lysis of adhesions and small bowel resection 2 and repair of an incisional hernia was also done. Postop, the patient was extubated in the operating room and the patient was brought into the intensive care unit for further monitoring. The patient is on normal saline at the rate of 60 mL an hour and she is also rec eiving lactated Ringer at the rate of 125 mL an hour. She is on IV cefepime as an empiric antibiotic coverage in combination with Flagyl. The patient is on Lovenox 40 prophylaxis 40 mg subcu every 24 hours. She is also on Dilaudid for pain control. She is awake and alert and her pain is under adequate control. She is wearing an abdominal bounded. Surgical wound site is dry clean and intact. No drains noted. On today's evaluation of 62,020, I'm seeing this patient for a follow-up. The patient is postop day #1. No abdominal distention. She still having abdominal pain and she is requiring Dilaudid every 2 hours around 1 mg IV push. NG tube is in place and output is minimal. This surgical wound site is dry clean and intact. The patient has nearly absent or hypoactive bowel sounds. She still on lactated Ringer at the rate of 1 25 mL an hour. She is on 2 L of oxygen by nasal cannula with a pulse of 96%. No fever. No chills. No other significant events overnight. She is otherwise calm and comfortable and she is using incentive spirometer. On 10/08/2019, I'm seeing this patient for a follow-up. The patient is postop day #2. She is still requiring Dilaudid for pain control. She claims that she is passing flatus. Abdomen is unchanged and the patient is not noted to have any significant abdominal distention. NG tube is in place. Output is minimal for now. she remains on lactated Ringer at the rate of 1 25 mL an hour. She is on oxygen 2 L per minute nasal cannula. Earlier this morning, the patient went into atrial fibrillation with rapid ventricular response. Heart rate was in the 170. The patient was given 5 mg of Cardizem bolus and started 5 mg an hour. Subsequently I give her another 20 mg of Cardizem bolus and increase the rate up to 10 mg an hour. This did not help with rate control and the patient was started on amiodarone. No chest pain. No palpitation. No syncope. No significant hemodynamic alteration along with his atrial fibrillation with rapid ventricular response. The patient remains on IV potassium supplements. She is using incentive spirometer. No other significant events overnight. The NG tube is still in place and output has been in the order of 500 mL over the past 24 hours. Body weight is up to 69 kg. Objective - Vital Signs Vital signs: Vital Signs Temp 98.7 F 10/09/19 08:00 Pulse 129 H 10/09/19 10:00 Resp 24 10/09/19 10:00 BP 95/63 10/09/19 10:00 Pulse Ox 92 L 10/09/19 10:00 Intake & Output 10/08/19 10/09/19 10/09/19 18:59 06:59 18:59 Intake Total 1845 1025 475 Output Total 1170 895 345 Balance 675 130 130 Weight 69.3 kg Intake: IV 1345 825 75 Lactated Ringers 1,000 ml 1345 825 75 @ 75 mls/hr IV .[id number] [facility] Rx#:[id number] Intake, IV Titration 500 200 400 Amount ACETAMINOPHEN IV (For NPO 100 ) 1,000 mg In Empty Bag 1 bag @ 400 mls/hr IVPB Q6HR [facility] Rx#:[id number] Cefepime 2 gm In Sodium 100 100 100 Chloride 0.9% 100 ml @ 200 mls/hr IVPB Q8HR [facility] Rx#:[id number] Potassium Chloride 10 meq 200 100 In Water For Injection 1 100ml.bag @ 100 mls/hr IVPB Q1HR [facility] Rx#: [id number] Potassium Chloride 10 meq 100 In Water For Injection 1 100ml.bag @ 100 mls/hr IVPB Q1HR [facility] Rx#: [id number] metroNIDAZOLE-NS PMX 500 100 100 100 mg In Saline 1 100ml.bag @ 100 mls/hr IVPB Q8HR [facility] Rx#:[id number] Output: Gastric Drainage 500 Urine 670 895 345 Other: Voiding Method Indwelling Catheter Indwelling Catheter ABP, PAP, CO, CI - Last Documented Arterial Blood Pressure 115/54 - Exam Gen. appearance she is calm comfortable sedated no acute distress. Currently her 2liters of oxygen by nasal cannula. Head exam was generally normal. There was no scleral icterus or corneal arcus. Mucous membranes were moist. Neck was supple and without jugular venous distension, thyromegaly, or carotid bruits. Carotids were easily palpable bilaterally. There was no adenopathy. Abdomen is showing postsurgical changes and the incision is dry clean and intact over the mid of the abdominal wall. Bowel sounds are absent. The patient is wearing an abdominal bounded. No direct tenderness. No rebound tenderness. No guarding. No drains noted. Lungs were clear to auscultation and percussion, and with normal diaphragmatic excursion. No wheezes or rales were noted. Cardiac exam revealed the PMI to be normally situated and sized. The rhythm is tachycardic this morning and is irregular consistent with atrial fibrillation with rapid ventricular response. There were no murmurs, rubs, clicks, or gallops. Examination of the extremities revealed easily palpable radial, femoral and pedal pulses. There was no cyanosis, clubbing or edema. Examination of the skin revealed no evidence of significant rashes, suspicious appearing nevi or other concerning lesions. Neurologically the patient is awake and alert and there is no focal neurological deficit. - Labs CBC & Chem 7: 10/09/19 06:14 10/09/19 05:28 Labs: Abnormal Lab Results - Last 24 Hours (Table) 10/09/19 10/09/19 Range/Units 05:28 06:14 WBC 12.7 H (3.8-10.6) k/uL RBC 2.88 L (3.80-5.40) m/uL Hgb 8.1 L D (11.4-16.0) gm/dL Hct 24.8 L (34.0-46.0) % Neutrophils # 10.8 H (1.3-7.7) k/uL Chloride 113 H (98-107) mmol/L Carbon Dioxide 21 L (22-30) mmol/L Creatinine 0.42 L (0.52-1.04) mg/dL Microbiology - Last 24 Hours (Table) 10/06/19 18:21 Blood Culture - Preliminary Blood No Growth after 48 hours Assessment and Plan Plan: 1 recurrent small bowel obstruction, post exploratory laparotomy for bowel obstruction requiring extensive lysis of adhesions, small bowel resection 2, repair of an incisional hernia and the patient is postop day #2. The NG tube is still in place and the patient is requiring Dilaudid for pain control. She is passing some flatus for now. She remains on IV fluids. She remains nothing by mouth. 2 history of multiple bowel surgeries for small bowel obstruction, most of the surgeries were done in [facility]. 3 abdominal pain secondary to above 4 history of malignancies including breast cancer with previous bilateral mastectomy and previous history of hysterectomy for uterine cancer 5 history of CVA 6 history of DVT 7 history of coronary artery disease with previous LA 8 previous history of seizure many years back 9 small hiatal hernia 10 diverticulosis 11 hypertension 12 chronic anxiety/depression 13 chronic osteoarthritis 14 new-onset atrial fibrillation with rapid ventricular response. Did not respond well to Cardizem which is running still attempting milligrams an hour and the patient was started on amiodarone. Plan Replace electrolytes including potassium Continue Cardizem drip at 10 mg an hour Amiodarone protocol Continue the combination of IV cefepime and Flagyl Lovenox for DVT prophylaxis Keep NG tube in place Dilaudid for pain control We'll continue to follow.
--- NOTE | 2019-10-09 12:15 | P.PN ---
Subjective Progress Note Date: 10/09/19 CHIEF COMPLAINT: Abdominal pain HISTORY OF PRESENT ILLNESS: 64 showed female who is status post exploratory laparotomy, lysis of extensive adhesions, small bowel resection 2, incisional hernia repair. Patient examined at the bedside Dr. Artis. Pain is contr olled. NG remains to LIS. Patient denies passing flatus. WBC 12.7. Hemoglobin 8.1 PHYSICAL EXAM: VITAL SIGNS: Reviewed. GENERAL: Well-developed in no acute distress. HEENT: No sclera icterus. Extraocular movements grossly intact. Moist buccal mucosa. Head is atraumatic, normocephalic. ABDOMEN: Soft. Nondistended. Appropriate surgical tenderness. Dressing clean dry and intact. NG tube to low intermittent suction NEUROLOGIC: Alert and oriented. Cranial nerves II through XII grossly intact. ASSESSMENT: 1. Small bowel obstruction PLAN: -NPO. May have ice chips -Continue NG tube -IV antibiotics -Obtain PICC line -Begin TPN Nurse practitioner note has been reviewed by physician. Signing provider agrees with the documented findings, assessment, and plan of care. Objective - Vital Signs Vital signs: Vital Signs Temp 98.7 F 10/09/19 08:00 Pulse 128 H 10/09/19 11:30 Resp 24 10/09/19 11:30 BP 84/58 10/09/19 11:30 Pulse Ox 93 L 10/09/19 11:30 Intake & Output 10/08/19 10/09/19 10/09/19 18:59 06:59 18:59 Intake Total 1845 1025 725 Output Total 1170 895 570 Balance 675 130 155 Weight 69.3 kg Intake: IV 1345 825 225 Lactated Ringers 1,000 ml 1345 825 225 @ 125 mls/hr IV .Q8H [facility] Rx#:[id number] Intake, IV Titration 500 200 500 Amount ACETAMINOPHEN IV (For NPO 100 ) 1,000 mg In Empty Bag 1 bag @ 400 mls/hr IVPB Q6HR [facility] Rx#:[id number] Cefepime 2 gm In Sodium 100 100 100 Chloride 0.9% 100 ml @ 200 mls/hr IVPB Q8HR [facility] Rx#:[id number] Dextrose 5% in Water 100 100 ml @ 618 mls/hr IV .Q10M [facility] with Amiodarone 150 mg Rx#:[id number] Potassium Chloride 10 meq 200 100 In Water For Injection 1 100ml.bag @ 100 mls/hr IVPB Q1HR [facility] Rx#: [id number] Potassium Chloride 10 meq 100 In Water For Injection 1 100ml.bag @ 100 mls/hr IVPB Q1HR [facility] Rx#: [id number] metroNIDAZOLE-NS PMX 500 100 100 100 mg In Saline 1 100ml.bag @ 100 mls/hr IVPB Q8HR [facility] Rx#:[id number] Output: Gastric Drainage 500 Urine 670 895 570 Other: Voiding Method Indwelling Catheter Indwelling Catheter ABP, PAP, CO, CI - Last Documented Arterial Blood Pressure 115/54 - Labs CBC & Chem 7: 10/09/19 06:14 10/09/19 05:28 Labs: Abnormal Lab Results - Last 24 Hours (Table) 10/09/19 10/09/19 Range/Units 05:28 06:14 WBC 12.7 H (3.8-10.6) k/uL RBC 2.88 L (3.80-5.40) m/uL Hgb 8.1 L D (11.4-16.0) gm/dL Hct 24.8 L (34.0-46.0) % Neutrophils # 10.8 H (1.3-7.7) k/uL Chloride 113 H (98-107) mmol/L Carbon Dioxide 21 L (22-30) mmol/L Creatinine 0.42 L (0.52-1.04) mg/dL Microbiology - Last 24 Hours (Table) 10/06/19 18:21 Blood Culture - Preliminary Blood No Growth after 48 hours
[2019-10-09] MEDS ORDERED: LIDOCAINE 1% INJ 10MG/ML (20 ML MDV) SQ ONE ×2 (12:53→13:03)
--- NOTE | 2019-10-09 13:07 | P.PN ---
Subjective Patient is a pleasant the 64-year-old female came in with bowel obstruction, patient underwent expiratory laparotomy with additional lysis bowel resection, repair of incisional hernia. Patient was subsequently admitted to ICU and patient the was started on antibiotics for colitis with cefepime and Flagyl. There is no evidence of heart failure because of which I'm not discontinuing diuretics at this time. Patient has sinus tachycardia today patient is an NG tube with minimal output. Patient has hyperactive bowel sounds atelectasis on the chest x-ray. 10/09/2019 Patient went into atrial fibrillation patient received Cardizem IV push followed by IV Cardizem but blood pressure is low patient was started on amiodarone will wean off Cardizem because of low blood pressure. Patient although feels okay bit tired. Patient is presently not on anti-correlation cardiology is following the patient Constitutional: Denied any fatigue denied any fever. Cardio vascular: denied any chest pain, palpitations Gastrointestinal denied any nausea vomiting Pulmonary: Denied any shortness of breath cough Neurologic denied any new focal deficits All inpatient medications were reviewed and appropriate changes in these medications as dictated in the interval history and assessment and plan. Objective - Vital Signs Vital signs: Vital Signs Temp 98.7 F 10/09/19 08:00 Pulse 161 H 10/09/19 12:30 Resp 19 10/09/19 12:30 BP 123/68 10/09/19 12:30 Pulse Ox 94 L 10/09/19 12:30 Intake & Output 10/08/19 10/09/19 10/09/19 18:59 06:59 18:59 Intake Total 1845 1025 725 Output Total 1170 895 570 Balance 675 130 155 Weight 69.3 kg Intake: IV 1345 825 225 Lactated Ringers 1,000 ml 1345 825 225 @ 125 mls/hr IV .Q8H [facility] Rx#:[id number] Intake, IV Titration 500 200 500 Amount ACETAMINOPHEN IV (For NPO 100 ) 1,000 mg In Empty Bag 1 bag @ 400 mls/hr IVPB Q6HR [facility] Rx#:[id number] Cefepime 2 gm In Sodium 100 100 100 Chloride 0.9% 100 ml @ 200 mls/hr IVPB Q8HR [facility] Rx#:[id number] Dextrose 5% in Water 100 100 ml @ 618 mls/hr IV .Q10M ONE with Amiodarone 150 mg Rx#:[id number] Potassium Chloride 10 meq 200 100 In Water For Injection 1 100ml.bag @ 100 mls/hr IVPB Q1HR [facility] Rx#: [id number] Potassium Chloride 10 meq 100 In Water For Injection 1 100ml.bag @ 100 mls/hr IVPB Q1HR [facility] Rx#: [id number] metroNIDAZOLE-NS PMX 500 100 100 100 mg In Saline 1 100ml.bag @ 100 mls/hr IVPB Q8HR [facility] Rx#:[id number] Output: Gastric Drainage 500 Urine 670 895 570 Other: Voiding Method Indwelling Catheter Indwelling Catheter ABP, PAP, CO, CI - Last Documented Arterial Blood Pressure 115/54 - Exam PHYSICAL EXAMINATION: GENERAL: The patient is alert and oriented x3, not in any acute distress. Well developed, well nourished. 2 L of thoracic cannula oxygen HEENT: Pupils are round and equally reacting to light. EOMI. No scleral icterus. No conjunctival pallor. Normocephalic, atraumatic. No pharyngeal erythema. No thyromegaly. CARDIOVASCULAR: S1 and S2 present. No murmurs, rubs, or gallops. Tachycardic irregularly irregular rhythm PULMONARY: Chest is clear to auscultation, no wheezing or crackles. ABDOMEN: Normal bowel binder in place sluggish bowel sounds NG tube in place MUSCULOSKELETAL: No joint swelling or deformity. EXTREMITIES: No cyanosis, clubbing, or pedal edema. NEUROLOGICAL: Gross neurological examination did not reveal any focal deficits. SKIN: No rashes. - Labs CBC & Chem 7: 10/09/19 06:14 10/09/19 05:28 Labs: Abnormal Lab Results - Last 24 Hours (Table) 10/09/19 10/09/19 Range/Units 05:28 06:14 WBC 12.7 H (3.8-10.6) k/uL RBC 2.88 L (3.80-5.40) m/uL Hgb 8.1 L D (11.4-16.0) gm/dL Hct 24.8 L (34.0-46.0) % Neutrophils # 10.8 H (1.3-7.7) k/uL Chloride 113 H (98-107) mmol/L Carbon Dioxide 21 L (22-30) mmol/L Creatinine 0.42 L (0.52-1.04) mg/dL Microbiology - Last 24 Hours (Table) 10/06/19 18:21 Blood Culture - Preliminary Blood No Growth after 48 hours Assessment and Plan Plan: -recurrent small bowel obstruction status post exploratory laparotomy additional lysis, and small bowel resection incisional hernia repair and operative findings of colitis for which patient is an above-mentioned antibiotics. Can you with the NG tube continue with cefepime and metronidazole -Atrial fibrillation with rapid ventricular rate and hypotension: Increase IV fluids to 1 25 mL per hour patient had a normal ejection fraction, patient was started on amiodarone patient is also on Cardizem which will be weaned off -History of DVT in the past patient will be resumed on Lovenox for DVT prophylaxis -Coronary artery disease -Seizure disorder -Hypertension -Depression -Osteoarthritis for above-mentioned chronic medical problems I'll continue with the her appropriate home medications although patient is presently nothing by mouth
--- NOTE | 2019-10-09 13:56 | XR ---
EXAMINATION TYPE: XR chest 1V portable DATE OF EXAM: 10/09/2019 COMPARISON: 10/09/2019 HISTORY: PICC line placement TECHNIQUE: Single frontal view of the chest is obtained. FINDINGS: Interstitial pattern with bilateral consolidation noted. NG tube seen. Left-sided PICC madeleine e seen with the tip overlying the right atrium. No sizable pneumothorax. Heart size is normal. IMPRESSION: 1. No findings suggest bilateral areas of consolidation. PICC line is in the right atrium and has bee n instructed to be withdrawn by approximately 6 cm. 2. Correlate for mild central venous congestion.
--- NOTE | 2019-10-09 13:58 | XR ---
EXAMINATION TYPE: XR chest 1V portable DATE OF EXAM: 10/09/2019 COMPARISON: 10/09/2019 earlier exam INDICATION: Line placement TECHNIQUE: Single frontal view of the chest is obtained. FINDINGS: The heart size is normal. The pulmonary vasculature is normal. There is some elevation of the right diaphragm. Some mild right lower lobe infiltrate remains present . A left side catheter could be a PICC line or a central venous catheter is directed towards the midlin e controls back and has its tip located directed towards the left axilla below the clavicle. This is a change in position from the previous exam. Nasogastric tube is present with the tip in the right upper quadrant of the abdomen. IMPRESSION: 1. Left side catheter is changed position with the tip currently overlying the left chest unchanged i n position from comparison. 2. Nasogastric tube tip in the right upper quadrant of the abdomen. 3. Right lower lobe infiltrate. Correlate for atelectasis or pneumonia.
--- NOTE | 2019-10-09 14:09 | IR ---
PICC LINE PLACEMENT: HISTORY: Infection requiring long-term antibiotic therapy PROCEDURE: Ultrasound guidance of PICC line placement. AQUATICS MANAGER: Dr. Dubose. COMPLICATIONS: None ANESTHESIA: 1. 1% Lidocaine locally. FINDINGS/TECHNIQUE: The procedure was explained to the patient. The risks, complications, benefits and alternatives were discussed and any questions were answered. Informed consent was obtained. The patient was placed supine on the fluoroscopic table and prepped and draped in the usual sterile fas ion. Utilizing a 21 gauge needle and sonographic guidance, access in the left basilic vein was achi eved and there is placement of a 0.018 guidewire. The vein is patent. A 5-F. sheath was placed over the guidewire. The guidewire and dilator were removed and a 5-F. Double lumen PICC line was placed through the sheath with the chest x-ray confirming the tip at the level of the SVC. The sheath was r emoved, the catheter was flushed and sutured into position. The patient was stable throughout the pr ocedure and remained stable upon discharge from the Department of Radiology. The vein puncture was patent under ultrasound. A sevilla scale image was obtained to document patency of the vein punctured. All elements of the maximal barrier technique were utilized. IMPRESSION: 1. Successful PICC line placement under ultrasound performed bedside within the ICU.
[2019-10-09] MEDS: POTASSIUM CHLORIDE 20 MEQ in WATER FOR INJECTION 1 100ML.BAG IVPB SCH ×2 (17:27→19:04)
[2019-10-09] MEDS: AMIODARONE 300 MG in DEXTROSE 5% IN WATER 250 ML IV SCH ×2 (17:39)
[2019-10-09] MEDS ORDERED: POTASSIUM CHLORIDE 20 MEQ in WATER FOR INJECTION 1 100ML.BAG IVPB STA (23:06)
[2019-10-10] MEDS: HYDROmorphone 1 MG/ML 1 ML SYRINGE IVP PRN ×8 (00:34→20:39)
[2019-10-10] MEDS: AMIODARONE 300 MG in DEXTROSE 5% IN WATER 250 ML IV SCH ×4 (04:22→17:17)
[2019-10-10] MEDS: LORazepam 2 MG/ML INJ IV PRN ×4 (04:29→21:40)
[2019-10-10 04:54] LABS: Basophils % (A) 0 %; Eosinophils # (A) 0.1 k/uL (0-0.7); Eosinophils % (A) 1 %; HCT 24.6 % (34.0-46.0); HGB 7.7 gm/dL (11.4-16.0); Hypochromasia Slight; Lymphocytes # (A) 1.2 k/uL (1.0-4.8); Lymphocytes % (A) 10 %; MCHC 31.4 g/dL (31.0-37.0); Mean Platelet Volume 7.4; Monocytes # (A) 0.5 k/uL (0-1.0); Monocytes % (A) 4 %; Neutrophils # (A) 9.6 k/uL (1.3-7.7); Neutrophils % (A) 84 %; Platelet Count 218 k/uL (150-450); RBC 2.87 m/uL (3.80-5.40); RDW 14.5 % (11.5-15.5); WBC 11.5 k/uL (3.8-10.6)
[2019-10-10 05:13] LABS: African American GFR (CKD) >90 (>60 ml/min/1.73 sqM); Anion Gap 6 mmol/L; Blood Urea Nitrogen 5 mg/dL (7-17); Calcium 8.3 mg/dL (8.4-10.2); Carbon Dioxide 19 mmol/L (22-30); Chloride 111 mmol/L (98-107); Glucose 95 mg/dL (74-99); Non-African American GFR(CKD) >90 (>60 ml/min/1.73 sqM); Potassium 3.6 mmol/L (3.5-5.1); Sodium 136 mmol/L (137-145)
[2019-10-10] MEDS ORDERED: POTASSIUM CHLORIDE 20 MEQ in WATER FOR INJECTION 1 100ML.BAG IVPB STA (05:39)
[2019-10-10] MEDS: DILTIAZEM 125 MG in SODIUM CHLORIDE 0.9% 100 ML IV SCH ×2 (06:53→17:17)
[2019-10-10] MEDS: LACTATED RINGERS 1,000 ML IV SCH ×2 (07:10→18:31)
--- NOTE | 2019-10-10 07:40 | P.PN ---
Subjective Progress Note Date: 10/10/19 Principal diagnosis: Paroxysmal atrial fibrillation This is a very pleasant 64-year-old female patient was requested to see for further cardiac evaluation. The patient does have a past medical history significant for hypertension as well as dyslipidemia. Also she does have a h istory of multiple abdominal surgery was partial bowel resection. This time she presented to the hospital complaining of abdominal discomfort as well as blunting. NG tube was inserted and the patient subsequently underwent a computed tomography scan and that revealed focal diabetes elevation of the bowel. Subsequently the patient underwent surgery again where she underwent for resection. We consulted to see the patient for further cardiac evaluation. The patient was seen at bedside today and she denies any symptoms of chest pain or chest discomfort or shortness of breath. She is in pain because of the abdominal surgery. Hemodynamically she is a stable except that she is in sinus tachycardia with a heart rate around 120 beats per minutes. Currently the patient is nothing by mouth. I am going to start the patient on metoprolol IV at 2.5 mg every 6 hours unless her pressure dropped below 90 mmHg systolic. She is not aware of any prior history of coronary artery disease and she stated that she underwent a heart catheterization about 2 years ago and that was unremarkable. She does have hypertension as well as dyslipidemia. The EKG showed only sinus tachycardia. The patient was seen today, October 092019. Her pain has improved compared to yesterday. Yesterday she went into atrial fibrillation with RVR which is new to her and subsequently she was converted to normal sinus mechanism after she was started on Cardizem IV as well as amiodarone IV. She continues to be in normal sinus mechanism when she was seen this morning. Hemodynamically she is stable with a good blood pressure. She continues to be nothing by mouth at this point. I would continue both the amiodarone IV and Cardizem IV at this point until she is not nothing by mouth anymore. We will start the patient on oral anticoagulation once it's safe from the surgical standpoint overview. An echocardiogram was performed and revealed normal left ventricle systolic function with mild mitral my tricuspid regurgitation. Objective - Vital Signs Vital signs: Vital Signs Temp 98.1 F 10/10/19 04:00 Pulse 96 10/10/19 07:00 Resp 20 10/10/19 07:00 BP 130/69 10/10/19 07:00 Pulse Ox 96 10/10/19 07:00 Intake & Output 10/09/19 10/10/19 10/10/19 18:59 06:59 18:59 Intake Total 9888.303 8061.25 125 Output Total 1170 1745 450 Balance 557.417 370.25 -325 Weight 69.3 kg 63.4 kg Intake: IV 975 1500 125 Lactated Ringers 1,000 ml 975 1500 125 @ 125 mls/hr IV .Q8H [facility] Rx#:[id number] Intake, IV Titration 752.417 615.25 Amount Amiodarone 300 mg In 250 Dextrose 5% in Water 250 ml @ 0.5 MG/MIN 25 mls/hr IV .Q10H [facility] Rx#: [id number] Cefepime 2 gm In Sodium 200 100 Chloride 0.9% 100 ml @ 200 mls/hr IVPB Q8HR [facility] Rx#:[id number] Dextrose 5% in Water 100 100 ml @ 618 mls/hr IV .Q10M [facility] with Amiodarone 150 mg Rx#:[id number] Diltiazem 125 mg In 52.417 65.25 Sodium Chloride 0.9% 100 ml @ 10 MG/HR 10 mls/hr IV .[id number] [facility] Rx#: [id number] Potassium Chloride 10 meq 100 In Water For Injection 1 100ml.bag @ 100 mls/hr IVPB Q1HR [facility] Rx#: [id number] Potassium Chloride 10 meq 100 In Water For Injection 1 100ml.bag @ 100 mls/hr IVPB Q1HR [facility] Rx#: [id number] Potassium Chloride 20 meq 150 In Water For Injection 1 100ml.bag @ 50 mls/hr IVPB [facility] Rx#: [id number] Potassium Chloride 20 meq 50 In Water For Injection 1 100ml.bag @ 50 mls/hr IVPB Q2H [facility] Rx#: [id number] metroNIDAZOLE-NS PMX 500 200 mg In Saline 1 100ml.bag @ 100 mls/hr IVPB Q8HR [facility] Rx#:[id number] Output: Gastric Drainage 400 Urine 1170 1345 150 Emesis 300 Other: Voiding Method Indwelling Catheter Indwelling Catheter ABP, PAP, CO, CI - Last Documented Arterial Blood Pressure 115/54 - Constitutional General appearance: Present: no acute distress - Respiratory Respiratory: bilateral: CTA - Cardiovascular Rhythm: regular Heart sounds: normal: S1, S2 - Labs CBC & Chem 7: 10/10/19 04:45 10/10/19 04:45 Labs: Abnormal Lab Results - Last 24 Hours (Table) 10/09/19 10/10/19 10/10/19 Range/Units 15:48 04:45 04:45 WBC 11.5 H (3.8-10.6) k/uL RBC 2.87 L (3.80-5.40) m/uL Hgb 7.7 L (11.4-16.0) gm/dL Hct 24.6 L (34.0-46.0) % Neutrophils # 9.6 H (1.3-7.7) k/uL Sodium 136 L (137-145) mmol/L Potassium 3.3 L (3.5-5.1) mmol/L Chloride 111 H (98-107) mmol/L Carbon Dioxide 19 L (22-30) mmol/L BUN 5 L (7-17) mg/dL Creatinine 0.39 L (0.52-1.04) mg/dL Calcium 8.3 L (8.4-10.2) mg/dL Microbiology - Last 24 Hours (Table) 10/06/19 18:21 Blood Culture - Preliminary Blood No Growth after 72 hours Assessment and Plan Assessment: Assessment #1 small bowel obstruction and status post surgery. The patient is known to have recurrent small bowel obstruction #2 paroxysmal atrial fibrillation. Currently the patient is in A. fib with RVR #3 sinus tachycardia #4 hypertension #5 Dyslipidemia Plan #1 continue amiodarone IV as well as Cardizem IV #2 restart the patient on amiodarone by mouth as well as Cardizem or metoprolol by mouth once she is not nothing by mouth any more #3 start the patient on oral anticoagulation once is safe from a surgical standpoint of view #4 follow-up with the patient
--- NOTE | 2019-10-10 07:53 | P.PN ---
Subjective Progress Note Date: 10/10/19 CHIEF COMPLAINT: Abdominal pain HISTORY OF PRESENT ILLNESS: 64 -year-old female who is status post exploratory laparotomy, lysis of extensive adhesions, small bowel resection 2, incisional hernia repair. Patient examined at the bedside Dr. Artis. Pain is co ntrolled with IV narcotics. NG remains to LIS. 300 mL of drainage overnight. Patient reports passing a small amount of flatus. White count 11.5. Hemoglobin 7.7. PHYSICAL EXAM: VITAL SIGNS: Reviewed. GENERAL: Well-developed in no acute distress. HEENT: No sclera icterus. Extraocular movements grossly intact. Moist buccal mucosa. Head is atraumatic, normocephalic. ABDOMEN: Soft. Nondistended. Appropriate surgical tenderness. Dressing clean dry and intact. NG tube to low intermittent suction NEUROLOGIC: Alert and oriented. Cranial nerves II through XII grossly intact. ASSESSMENT: 1. Small bowel obstruction PLAN: -NPO. May have ice chips. Possibility of NG tube being discontinued and starting clear liquids tomorrow. -Continue NG tube -IV antibiotics -Continue TPN -Monitor labs -Incentive spirometer Nurse practitioner note has been reviewed by physician. Signing provider agrees with the documented findings, assessment, and plan of care. Objective - Vital Signs Vital signs: Vital Signs Temp 98.1 F 10/10/19 04:00 Pulse 96 10/10/19 07:00 Resp 20 10/10/19 07:00 BP 130/69 10/10/19 07:00 Pulse Ox 96 10/10/19 07:00 Intake & Output 10/09/19 10/10/19 10/10/19 18:59 06:59 18:59 Intake Total 4045.003 6679.25 125 Output Total 1170 1745 450 Balance 557.417 370.25 -325 Weight 69.3 kg 63.4 kg Intake: IV 975 1500 125 Lactated Ringers 1,000 ml 975 1500 125 @ 125 mls/hr IV .Q8H [facility] Rx#:[id number] Intake, IV Titration 752.417 615.25 Amount Amiodarone 300 mg In 250 Dextrose 5% in Water 250 ml @ 0.5 MG/MIN 25 mls/hr IV .Q10H [facility] Rx#: [id number] Cefepime 2 gm In Sodium 200 100 Chloride 0.9% 100 ml @ 200 mls/hr IVPB Q8HR [facility] Rx#:[id number] Dextrose 5% in Water 100 100 ml @ 618 mls/hr IV .Q10M [facility] with Amiodarone 150 mg Rx#:[id number] Diltiazem 125 mg In 52.417 65.25 Sodium Chloride 0.9% 100 ml @ 10 MG/HR 10 mls/hr IV .[id number] [facility] Rx#: [id number] Potassium Chloride 10 meq 100 In Water For Injection 1 100ml.bag @ 100 mls/hr IVPB Q1HR [facility] Rx#: [id number] Potassium Chloride 10 meq 100 In Water For Injection 1 100ml.bag @ 100 mls/hr IVPB Q1HR [facility] Rx#: [id number] Potassium Chloride 20 meq 150 In Water For Injection 1 100ml.bag @ 50 mls/hr IVPB [facility] Rx#: [id number] Potassium Chloride 20 meq 50 In Water For Injection 1 100ml.bag @ 50 mls/hr IVPB Q2H [facility] Rx#: [id number] metroNIDAZOLE-NS PMX 500 200 mg In Saline 1 100ml.bag @ 100 mls/hr IVPB Q8HR [facility] Rx#:[id number] Output: Gastric Drainage 400 Urine 1170 1345 150 Emesis 300 Other: Voiding Method Indwelling Catheter Indwelling Catheter ABP, PAP, CO, CI - Last Documented Arterial Blood Pressure 115/54 - Labs CBC & Chem 7: 10/10/19 04:45 10/10/19 04:45 Labs: Abnormal Lab Results - Last 24 Hours (Table) 10/09/19 10/10/19 10/10/19 Range/Units 15:48 04:45 04:45 WBC 11.5 H (3.8-10.6) k/uL RBC 2.87 L (3.80-5.40) m/uL Hgb 7.7 L (11.4-16.0) gm/dL Hct 24.6 L (34.0-46.0) % Neutrophils # 9.6 H (1.3-7.7) k/uL Sodium 136 L (137-145) mmol/L Potassium 3.3 L (3.5-5.1) mmol/L Chloride 111 H (98-107) mmol/L Carbon Dioxide 19 L (22-30) mmol/L BUN 5 L (7-17) mg/dL Creatinine 0.39 L (0.52-1.04) mg/dL Calcium 8.3 L (8.4-10.2) mg/dL Microbiology - Last 24 Hours (Table) 10/06/19 18:21 Blood Culture - Preliminary Blood No Growth after 72 hours
[2019-10-10] MEDS: METOCLOPRAMIDE 5 MG/ML 2 ML VIAL IVP PRN (08:05)
[2019-10-10] MEDS: PANTOPRAZOLE 40 MG/10 ML VIAL IV SCH (08:05)
[2019-10-10] MEDS: METOPROLOL SUCCINATE (ER) 50 MG TAB.ER.24H PO SCH (08:06)
[2019-10-10] MEDS: CEFEPIME 2 GM in SODIUM CHLORIDE 0.9% 100 ML IVPB SCH ×2 (08:06→14:59)
[2019-10-10] MEDS: ENOXAPARIN 40 MG/0.4 ML SYRINGE SQ SCH (08:22)
[2019-10-10] MEDS: metroNIDAZOLE-NS PMX 500 MG in SALINE 1 100ML.BAG IVPB SCH ×2 (09:05→15:36)
--- NOTE | 2019-10-10 10:58 | P.PN ---
Subjective Progress Note Date: 10/10/19 64-year-old female patient was admitted for abdominal pain and bloating. The patient is known to have previous history of partial bowel resection and she has had multiple previous bowel obstructions. Patient reported that she was having significant amount of pain in her left upper and lower quadrants. NG tube was inserted in the emergency department as the patient was given a CAT scan of the abdomen and pelvis that showed extensive surgical changes involving the bowel loops in the mid in the lower abdomen into the upper pelvis with focal fluid and fecal dilatation. Surrounding inflammatory changes noted. Findings were consistent with partial bowel obstruction and the possibility of closed loop obstruction or internal hernia cannot be completely excluded. There was no significant proximal dilatation and the findings were more localized. There was also fairly moderate extrahepatic and mild intrahepatic biliary dilatation noted. Also, there was a small to moderate-sized hiatal hernia. The stomach was poorly distended. No suspicious dilatation of the duodenal sweep. There was also scattered peripheral colonic diverticuli noted. The white cell count was 15.3. The liver function tests were within normal limits. Amylase lipase within normal limits. The patient was taken to the operating room today by Dr. Koehler and the patient underwent expiratory laparotomy. The patient was found to have frozen abdomen with extensive adhesions. The patient underwent lysis of adhesions and small bowel resection 2 and repair of an incisional hernia was also done. Postop, the patient was extubated in the operating room and the patient was brought into the intensive care unit for further monitoring. The patient is on normal saline at the rate of 60 mL an hour and she is also rec eiving lactated Ringer at the rate of 125 mL an hour. She is on IV cefepime as an empiric antibiotic coverage in combination with Flagyl. The patient is on Lovenox 40 prophylaxis 40 mg subcu every 24 hours. She is also on Dilaudid for pain control. She is awake and alert and her pain is under adequate control. She is wearing an abdominal bounded. Surgical wound site is dry clean and intact. No drains noted. On today's evaluation of 10/08/2019, I'm seeing this patient for a follow-up. The patient is postop day #1. No abdominal distention. She still having abdominal pain and she is requiring Dilaudid every 2 hours around 1 mg IV push. NG tube is in place and output is minimal. This surgical wound site is dry clean and intact. The patient has nearly absent or hypoactive bowel sounds. She still on lactated Ringer at the rate of 1 25 mL an hour. She is on 2 L of oxygen by nasa l cannula with a pulse of 96%. No fever. No chills. No other significant events overnight. She is otherwise calm and comfortable and she is using incentive spirometer. On 10/09/2019, I'm seeing this patient for a follow-up. The patient is postop day #2. She is still requiring Dilaudid for pain control. She claims that she is passing flatus. Abdomen is unchanged and the patient is not noted to have any significant abdominal distention. NG tube is in place. Output is minimal for now. she remains on lactated Ringer at the rate of 1 25 mL an hour. She is on oxygen 2 L per minute nasal cannula. Earlier this morning, the patient went into atrial fibrillation with rapid ventricular response. Heart rate was in the 170. The patient was given 5 mg of Cardizem bolus and started 5 mg an hour. Subsequently I give her another 20 mg of Cardizem bolus and increase the rate up to 10 mg an hour. This did not help with rate control and the patient was started on amiodarone. No chest pain. No palpitation. No syncope. No significant hemodynamic alteration along with his atrial fibrillation with rapid ventricular response. The patient remains on IV potassium supplements. She is using incentive spirometer. No other significant events overnight. The NG tube is still in place and output has been in the order of 500 mL over the past 24 hours. Body weight is up to 69 kg. on 10/10/2019, the patient is doing well. She is postop day #3. She is resting comfortably in bed. No respiratory difficulties. No cough sputum production chest that is so wheezing. NG tube is in place and output has been in the order of 300 mL overnight. The patient was having issues with atrial fibrillation with rapid ventricular response. The patient was given initially Cardizem drip and later on amiodarone for rate control. The patient converted yesterday afternoon to normal sinus rhythm. Currently still on amiodarone 0.5 mg/m as maintenance in addition to Cardizem drip at time of the gums an hour. Cardiology is managing this. Has not utilized any anticoagulation. The patient was moved on a chair today. Hemoglobin is at 7.7. Renal function stable. No significant electrolyte abnormalities. She is still nothing by mouth. No chest pain. Using incentive spirometer. Objective - Vital Signs Vital signs: Vital Signs Temp 98.2 F 10/10/19 08:00 Pulse 93 10/10/19 10:00 Resp 21 10/10/19 10:00 BP 113/78 10/10/19 10:00 Pulse Ox 93 L 10/10/19 10:00 Intake & Output 10/09/19 10/10/19 10/10/19 18:59 06:59 18:59 Intake Total 5027.410 7496.25 650 Output Total 1170 1745 900 Balance 557.417 370.25 -250 Weight 69.3 kg 63.4 kg 63.4 kg Intake: IV 975 1500 500 Lactated Ringers 1,000 ml 975 1500 500 @ 125 mls/hr IV .Q8H [facility] Rx#:[id number] Intake, IV Titration 752.417 615.25 150 Amount Amiodarone 300 mg In 250 Dextrose 5% in Water 250 ml @ 0.5 MG/MIN 25 mls/hr IV .Q10H [facility] Rx#: [id number] Cefepime 2 gm In Sodium 200 100 50 Chloride 0.9% 100 ml @ 200 mls/hr IVPB Q8HR [facility] Rx#:[id number] Dextrose 5% in Water 100 100 ml @ 618 mls/hr IV .Q10M [facility] with Amiodarone 150 mg Rx#:[id number] Diltiazem 125 mg In 52.417 65.25 Sodium Chloride 0.9% 100 ml @ 10 MG/HR 10 mls/hr IV .[id number] [facility] Rx#: [id number] Potassium Chloride 10 meq 100 In Water For Injection 1 100ml.bag @ 100 mls/hr IVPB Q1HR [facility] Rx#: [id number] Potassium Chloride 10 meq 100 In Water For Injection 1 100ml.bag @ 100 mls/hr IVPB Q1HR [facility] Rx#: [id number] Potassium Chloride 20 meq 150 In Water For Injection 1 100ml.bag @ 50 mls/hr IVPB [facility] Rx#: [id number] Potassium Chloride 20 meq 50 In Water For Injection 1 100ml.bag @ 50 mls/hr IVPB Q2H [facility] Rx#: [id number] metroNIDAZOLE-NS PMX 500 200 100 mg In Saline 1 100ml.bag @ 100 mls/hr IVPB Q8HR [facility] Rx#:[id number] Output: Gastric Drainage 400 Urine 1170 1345 600 Emesis 300 Other: Voiding Method Indwelling Catheter Indwelling Catheter ABP, PAP, CO, CI - Last Documented Arterial Blood Pressure 115/54 - Exam Gen. appearance she is calm comfortable sedated no acute distress. Currently her 2liters of oxygen by nasal cannula. Head exam was generally normal. There was no scleral icterus or corneal arcus. Mucous membranes were moist. Neck was supple and without jugular venous distension, thyromegaly, or carotid bruits. Carotids were easily palpable bilaterally. There was no adenopathy. Abdomen is showing postsurgical changes and the incision is dry clean and intact over the mid of the abdominal wall. Bowel sounds are absent. The patient is wearing an abdominal bounded. No direct tenderness. No rebound tenderness. No guarding. No drains noted. Lungs were clear to auscultation and percussion, and with normal diaphragmatic excursion. No wheezes or rales were noted. Cardiac exam revealed the PMI to be normally situated and sized. The rhythm is tachycardic this morning and is irregular consistent with atrial fibrillation with rapid ventricular response. There were no murmurs, rubs, clicks, or gallops. Examination of the extremities revealed easily palpable radial, femoral and pedal pulses. There was no cyanosis, clubbing or edema. Examination of the skin revealed no evidence of significant rashes, suspicious appearing nevi or other concerning lesions. Neurologically the patient is awake and alert and there is no focal neurological deficit. - Labs CBC & Chem 7: 10/10/19 04:45 10/10/19 04:45 Labs: Abnormal Lab Results - Last 24 Hours (Table) 10/09/19 10/10/19 10/10/19 Range/Units 15:48 04:45 04:45 WBC 11.5 H (3.8-10.6) k/uL RBC 2.87 L (3.80-5.40) m/uL Hgb 7.7 L (11.4-16.0) gm/dL Hct 24.6 L (34.0-46.0) % Neutrophils # 9.6 H (1.3-7.7) k/uL Sodium 136 L (137-145) mmol/L Potassium 3.3 L (3.5-5.1) mmol/L Chloride 111 H (98-107) mmol/L Carbon Dioxide 19 L (22-30) mmol/L BUN 5 L (7-17) mg/dL Creatinine 0.39 L (0.52-1.04) mg/dL Calcium 8.3 L (8.4-10.2) mg/dL Microbiology - Last 24 Hours (Table) 10/06/19 18:21 Blood Culture - Preliminary Blood No Growth after 72 hours Assessment and Plan Plan: 1 recurrent small bowel obstruction, post exploratory laparotomy for bowel obstruction requiring extensive lysis of adhesions, small bowel resection 2, repair of an incisional hernia and the patient is postop day #23. The NG tube is still in place and the patient is requiring Dilaudid for pain control. She is passing some flatus for now. She remains on IV fluids. She remains nothing by mouth. 2 history of multiple bowel surgeries for small bowel obstruction, most of the surgeries were done in [facility]. 3 abdominal pain secondary to above, improved 4 history of malignancies including breast cancer with previous bilateral mastectomy and previous history of hysterectomy for uterine cancer 5 history of CVA 6 history of DVT 7 history of coronary artery disease with previous UT 8 previous history of seizure many years back 9 small hiatal hernia 10 diverticulosis 11 hypertension 12 chronic anxiety/depression 13 chronic osteoarthritis 14 new-onset atrial fibrillation with rapid ventricular response. This was an active issue yesterday. The patient was treated with amiodarone and currently she is on amiodarone 0.5 mg per minute and the patient is also on Cardizem drip at 10 mg an hour. Cardiac rhythm is back to sinus. No anticoagulants for now. Electrodes have been checked. Plan Continue using incentive spirometer Increased mobility as tolerated Monitor electrodes in hemoglobin Amiodarone 0.5 mg per minute The patient's cardiac rhythm is sinus for now Continue the combination of IV cefepime and Flagyl Lovenox for DVT prophylaxis Keep NG tube in place Dilaudid for pain control We'll continue to follow.
[2019-10-10 12:48] LABS: Albumin 2.2 g/dL (3.5-5.0); Phosphorus 1.7 mg/dL (2.5-4.5)
[2019-10-10 12:53] LABS: Ionized Calcium 5.4 mg/dL (4.5-5.3)
[2019-10-10] MEDS ORDERED: FAT EMULSION 20% 250 ML IV SCH (13:30)
[2019-10-10] MEDS ORDERED: MVI, ADULT NO.4 WITH VIT K 10 ML, TRACE (CONC-1ML/DOSE) 1 ML in AMINO ACID 5%-D15W+LYTE... IV SCH ×3 (13:30)
--- NOTE | 2019-10-10 15:26 | P.PN ---
Subjective Patient is a pleasant the 64-year-old female came in with bowel obstruction, patient underwent expiratory laparotomy with additional lysis bowel resection, repair of incisional hernia. Patient was subsequently admitted to ICU and patient the was started on antibiotics for colitis with cefepime and Flagyl. There is no evidence of heart failure because of which I'm not discontinuing diuretics at this time. Patient has sinus tachycardia today patient is an NG tube with minimal output. Patient has hyperactive bowel sounds atelectasis on the chest x-ray. 10/09/2019 Patient went into atrial fibrillation patient received Cardizem IV push followed by IV Cardizem but blood pressure is low patient was started on amiodarone will wean off Cardizem because of low blood pressure. Patient although feels okay bit tired. Patient is presently not on anti-correlation cardiology is following the patient 10/10/2019 patient is postoperative day 3 patient still has significant output from the NG tube patient is being started on TPN as per general surgery patient is sinus rhythm presently on Cardizem and amiodarone drip which is being weaned off patient is presently not on any anticoagulation . Constitutional: Denied any fatigue denied any fever. Cardio vascular: denied any chest pain, palpitations Gastrointestinal denied any nausea vomiting Pulmonary: Denied any shortness of breath cough Neurologic denied any new focal deficits All inpatient medications were reviewed and appropriate changes in these medications as dictated in the interval history and assessment and plan. Objective - Vital Signs Vital signs: Vital Signs Temp 98.2 F 10/10/19 13:00 Pulse 98 10/10/19 13:00 Resp 26 H 10/10/19 13:00 BP 123/83 10/10/19 13:00 Pulse Ox 97 10/10/19 12:00 Intake & Output 10/09/19 10/10/19 10/10/19 18:59 06:59 18:59 Intake Total 9701.934 4683.25 1025 Output Total 1170 1745 1625 Balance 557.417 370.25 -600 Weight 69.3 kg 63.4 kg 63.4 kg Intake: IV 975 1500 875 Lactated Ringers 1,000 ml 975 1500 875 @ 50 mls/hr IV .Q20H [facility] Rx#:[id number] Intake, IV Titration 752.417 615.25 150 Amount Amiodarone 300 mg In 250 Dextrose 5% in Water 250 ml @ 0.5 MG/MIN 25 mls/hr IV .Q10H [facility] Rx#: [id number] Cefepime 2 gm In Sodium 200 100 50 Chloride 0.9% 100 ml @ 200 mls/hr IVPB Q8HR [facility] Rx#:[id number] Dextrose 5% in Water 100 100 ml @ 618 mls/hr IV .Q10M ONE with Amiodarone 150 mg Rx#:[id number] Diltiazem 125 mg In 52.417 65.25 Sodium Chloride 0.9% 100 ml @ 10 MG/HR 10 mls/hr IV .[id number] [facility] Rx#: [id number] Potassium Chloride 10 meq 100 In Water For Injection 1 100ml.bag @ 100 mls/hr IVPB Q1HR [facility] Rx#: [id number] Potassium Chloride 10 meq 100 In Water For Injection 1 100ml.bag @ 100 mls/hr IVPB Q1HR [facility] Rx#: [id number] Potassium Chloride 20 meq 150 In Water For Injection 1 100ml.bag @ 50 mls/hr IVPB ONCE [facility] Rx#: [id number] Potassium Chloride 20 meq 50 In Water For Injection 1 100ml.bag @ 50 mls/hr IVPB Q2H [facility] Rx#: [id number] metroNIDAZOLE-NS PMX 500 200 100 mg In Saline 1 100ml.bag @ 100 mls/hr IVPB Q8HR [facility] Rx#:[id number] Output: Gastric Drainage 400 Urine 1170 1345 1025 Emesis 600 Other: Voiding Method Indwelling Catheter Indwelling Catheter Indwelling Catheter # Voids 1 ABP, PAP, CO, CI - Last Documented Arterial Blood Pressure 115/54 - Exam PHYSICAL EXAMINATION: GENERAL: The patient is alert and oriented x3, not in any acute distress. Well developed, well nourished. 2 L of thoracic cannula oxygen HEENT: Pupils are round and equally reacting to light. EOMI. No scleral icterus. No conjunctival pallor. Normocephalic, atraumatic. No pharyngeal erythema. No thyromegaly. CARDIOVASCULAR: S1 and S2 present. No murmurs, rubs, or gallops. Tachycardic irregularly irregular rhythm PULMONARY: Chest is clear to auscultation, no wheezing or crackles. ABDOMEN: Normal bowel binder in place sluggish bowel sounds NG tube in place MUSCULOSKELETAL: No joint swelling or deformity. EXTREMITIES: No cyanosis, clubbing, or pedal edema. NEUROLOGICAL: Gross neurological examination did not reveal any focal deficits. SKIN: No rashes. - Labs CBC & Chem 7: 10/10/19 04:45 10/10/19 04:45 Labs: Abnormal Lab Results - Last 24 Hours (Table) 10/09/19 10/10/19 10/10/19 Range/Units 15:48 04:45 04:45 WBC 11.5 H (3.8-10.6) k/uL RBC 2.87 L (3.80-5.40) m/uL Hgb 7.7 L (11.4-16.0) gm/dL Hct 24.6 L (34.0-46.0) % Neutrophils # 9.6 H (1.3-7.7) k/uL Sodium 136 L (137-145) mmol/L Potassium 3.3 L (3.5-5.1) mmol/L Chloride 111 H (98-107) mmol/L Carbon Dioxide 19 L (22-30) mmol/L BUN 5 L (7-17) mg/dL Creatinine 0.39 L (0.52-1.04) mg/dL Calcium 8.3 L (8.4-10.2) mg/dL Ionized Calcium Eliecer (4.5-5.3) mg/dL Phosphorus (2.5-4.5) mg/dL Albumin (3.5-5.0) g/dL Triglycerides (<150) mg/dL 10/10/19 Range/Units 12:12 WBC (3.8-10.6) k/uL RBC (3.80-5.40) m/uL Hgb (11.4-16.0) gm/dL Hct (34.0-46.0) % Neutrophils # (1.3-7.7) k/uL Sodium (137-145) mmol/L Potassium (3.5-5.1) mmol/L Chloride (98-107) mmol/L Carbon Dioxide (22-30) mmol/L BUN (7-17) mg/dL Creatinine (0.52-1.04) mg/dL Calcium (8.4-10.2) mg/dL Ionized Calcium Eliecer 5.4 H (4.5-5.3) mg/dL Phosphorus 1.7 L (2.5-4.5) mg/dL Albumin 2.2 L (3.5-5.0) g/dL Triglycerides 156 H (<150) mg/dL Microbiology - Last 24 Hours (Table) 10/06/19 18:21 Blood Culture - Preliminary Blood No Growth after 72 hours Assessment and Plan Plan: -recurrent small bowel obstruction status post exploratory laparotomy additional lysis, and small bowel resection incisional hernia repair and operative findings of colitis for which patient is an above-mentioned antibiotics. Continue with the NG tube continue with cefepime and metronidazole -Atrial fibrillation, converted to sinus rhythm patient remains 7 Cardizem drip and amiodarone drip, will cut down the lactated Ringer's to 56. Respiration is being started on TPN, to prevent volume overload -History of DVT in the past patient will be resumed on Lovenox for DVT prophylaxis -Coronary artery disease -Seizure disorder -Hypertension -Depression -Osteoarthritis for above-mentioned chronic medical problems I'll continue with the her appropriate home medications although patient is presently nothing by mouth
[2019-10-10] MEDS: POTASSIUM CHLORIDE 10 MEQ in WATER FOR INJECTION 1 100ML.BAG IVPB SCH ×2 (16:43→17:43)
[2019-10-10 18:28] LABS: Glucose,Whole Blood 142 mg/dL (75-99)
[2019-10-10] MEDS: INSULIN ASPART (NovoLOG) 100 UNIT/ML VIAL SQ SCH (18:29)
[2019-10-10 23:51] LABS: Glucose,Whole Blood 143 mg/dL (75-99)
[2019-10-11] MEDS: AMIODARONE 300 MG in DEXTROSE 5% IN WATER 250 ML IV SCH ×4 (00:04→01:48)
[2019-10-11] MEDS: INSULIN ASPART (NovoLOG) 100 UNIT/ML VIAL SQ SCH ×4 (00:04→18:41)
[2019-10-11] MEDS: CEFEPIME 2 GM in SODIUM CHLORIDE 0.9% 100 ML IVPB SCH ×3 (00:25→16:46)
[2019-10-11] MEDS: HYDROmorphone 1 MG/ML 1 ML SYRINGE IVP PRN ×6 (00:25→19:57)
[2019-10-11] MEDS: LORazepam 2 MG/ML INJ IV PRN ×5 (01:42→21:24)
[2019-10-11] MEDS: metroNIDAZOLE-NS PMX 500 MG in SALINE 1 100ML.BAG IVPB SCH ×3 (01:42→16:46)
[2019-10-11] MEDS: HYDROmorphone 0.5 MG/0.5 ML SYRINGE IVP PRN ×3 (03:22→21:54)
[2019-10-11] MEDS: DILTIAZEM 125 MG in SODIUM CHLORIDE 0.9% 100 ML IV SCH ×2 (03:26→16:46)
[2019-10-11 05:41] LABS: Basophils % (A) 0 %; Eosinophils # (A) 0.3 k/uL (0-0.7); Eosinophils % (A) 2 %; HGB 8.5 gm/dL (11.4-16.0); Hypochromasia Slight; Lymphocytes # (A) 1.2 k/uL (1.0-4.8); Lymphocytes % (A) 11 %; MCH 25.9 pg (25.0-35.0); MCHC 30.2 g/dL (31.0-37.0); MCV 85.7 fL (80.0-100.0); Mean Platelet Volume 7.6; Monocytes # (A) 0.4 k/uL (0-1.0); Monocytes % (A) 4 %; Neutrophils # (A) 8.9 k/uL (1.3-7.7); Neutrophils % (A) 82 %; Platelet Count 216 k/uL (150-450); RBC 3.26 m/uL (3.80-5.40); RDW 14.6 % (11.5-15.5); WBC 10.9 k/uL (3.8-10.6)
[2019-10-11 05:48] LABS: African American GFR (CKD) >90 (>60 ml/min/1.73 sqM); Anion Gap 7 mmol/L; Blood Urea Nitrogen 5 mg/dL (7-17); Calcium 8.3 mg/dL (8.4-10.2); Carbon Dioxide 19 mmol/L (22-30); Chloride 111 mmol/L (98-107); Glucose 128 mg/dL (74-99); Non-African American GFR(CKD) >90 (>60 ml/min/1.73 sqM); Phosphorus 1.7 mg/dL (2.5-4.5); Potassium 3.3 mmol/L (3.5-5.1); Sodium 137 mmol/L (137-145)
[2019-10-11 05:53] LABS: Glucose,Whole Blood 139 mg/dL (75-99)
[2019-10-11] MEDS ORDERED: Phosphorus Replacement Protoco 1 EACH MISC MISCELLANE PRN (06:04)
[2019-10-11] MEDS ORDERED: Potassium Replacement Protocol 1 EACH MISC MISCELLANE PRN (06:05)
[2019-10-11] MEDS: POTASSIUM CHLORIDE 20 MEQ in WATER FOR INJECTION 1 100ML.BAG IVPB SCH ×2 (06:24→08:31)
[2019-10-11] MEDS: POTASSIUM PHOSPHATE 10 MMOL in SODIUM CHLORIDE 0.9% 250 ML IV SCH ×2 (07:05→12:30)
[2019-10-11] MEDS: PANTOPRAZOLE 40 MG/10 ML VIAL IV SCH (08:32)
[2019-10-11] MEDS: LACTATED RINGERS 1,000 ML IV SCH (08:32)
[2019-10-11] MEDS: ENOXAPARIN 40 MG/0.4 ML SYRINGE SQ SCH (08:33)
[2019-10-11] MEDS: METOPROLOL SUCCINATE (ER) 50 MG TAB.ER.24H PO SCH (08:33)
--- NOTE | 2019-10-11 11:03 | P.PN ---
Subjective Progress Note Date: 10/11/19 64-year-old female patient was admitted for abdominal pain and bloating. The patient is known to have previous history of partial bowel resection and she has had multiple previous bowel obstructions. Patient reported that she was having significant amount of pain in her left upper and lower quadrants. NG tube was inserted in the emergency department as the patient was given a CAT scan of the abdomen and pelvis that showed extensive surgical changes involving the bowel loops in the mid in the lower abdomen into the upper pelvis with focal fluid and fecal dilatation. Surrounding inflammatory changes noted. Findings were consistent with partial bowel obstruction and the possibility of closed loop obstruction or internal hernia cannot be completely excluded. There was no significant proximal dilatation and the findings were more localized. There was also fairly moderate extrahepatic and mild intrahepatic biliary dilatation noted. Also, there was a small to moderate-sized hiatal hernia. The stomach was poorly distended. No suspicious dilatation of the duodenal sweep. There was also scattered peripheral colonic diverticuli noted. The white cell count was 15.3. The liver function tests were within normal limits. Amylase lipase within normal limits. The patient was taken to the operating room today by Dr. Koehler and the patient underwent expiratory laparotomy. The patient was found to have frozen abdomen with extensive adhesions. The patient underwent lysis of adhesions and small bowel resection 2 and repair of an incisional hernia was also done. Postop, the patient was extubated in the operating room and the patient was brought into the intensive care unit for further monitoring. The patient is on normal saline at the rate of 60 mL an hour and she is also rec eiving lactated Ringer at the rate of 125 mL an hour. She is on IV cefepime as an empiric antibiotic coverage in combination with Flagyl. The patient is on Lovenox 40 prophylaxis 40 mg subcu every 24 hours. She is also on Dilaudid for pain control. She is awake and alert and her pain is under adequate control. She is wearing an abdominal bounded. Surgical wound site is dry clean and intact. No drains noted. On today's evaluation of 10/08/2019, I'm seeing this patient for a follow-up. The patient is postop day #1. No abdominal distention. She still having abdominal pain and she is requiring Dilaudid every 2 hours around 1 mg IV push. NG tube is in place and output is minimal. This surgical wound site is dry clean and intact. The patient has nearly absent or hypoactive bowel sounds. She still on lactated Ringer at the rate of 1 25 mL an hour. She is on 2 L of oxygen by nasa l cannula with a pulse of 96%. No fever. No chills. No other significant events overnight. She is otherwise calm and comfortable and she is using incentive spirometer. On 10/09/2019, I'm seeing this patient for a follow-up. The patient is postop day #2. She is still requiring Dilaudid for pain control. She claims that she is passing flatus. Abdomen is unchanged and the patient is not noted to have any significant abdominal distention. NG tube is in place. Output is minimal for now. she remains on lactated Ringer at the rate of 1 25 mL an hour. She is on oxygen 2 L per minute nasal cannula. Earlier this morning, the patient went into atrial fibrillation with rapid ventricular response. Heart rate was in the 170. The patient was given 5 mg of Cardizem bolus and started 5 mg an hour. Subsequently I give her another 20 mg of Cardizem bolus and increase the rate up to 10 mg an hour. This did not help with rate control and the patient was started on amiodarone. No chest pain. No palpitation. No syncope. No significant hemodynamic alteration along with his atrial fibrillation with rapid ventricular response. The patient remains on IV potassium supplements. She is using incentive spirometer. No other significant events overnight. The NG tube is still in place and output has been in the order of 500 mL over the past 24 hours. Body weight is up to 69 kg. on 10/10/2019, the patient is doing well. She is postop day #3. She is resting comfortably in bed. No respiratory difficulties. No cough sputum production chest that is so wheezing. NG tube is in place and output has been in the order of 300 mL overnight. The patient was having issues with atrial fibrillation with rapid ventricular response. The patient was given initially Cardizem drip and later on amiodarone for rate control. The patient converted yesterday afternoon to normal sinus rhythm. Currently still on amiodarone 0.5 mg/m as maintenance in addition to Cardizem drip at time of the gums an hour. Cardiology is managing this. Has not utilized any anticoagulation. The patient was moved on a chair today. Hemoglobin is at 7.7. Renal function stable. No significant electrolyte abnormalities. She is still nothing by mouth. No chest pain. Using incentive spirometer. On 10/11/2019 the patient is postop day #4. NG tube is in place and the patient has a left upper extremity PICC line and she was started on TPN for nutritional support. The patient unfortunately is not having any significant bowel activity. She remains nothing by mouth. NG tube output has been in the order of 500-600 mL over the past 24 hours. The pain is currently running at 30 mL an hour. The patient is also on lactated Ringer at the rate of 50 mL an hour. The patient remains nothing by mouth. The patient is on amiodarone drip at 0.5 mg per minute and Cardizem drip at 10 mg an hour and the patient is a normal sinus rhythm. She did undergo some minimal amount of walking and ambulation yes terday. No chest pain. No shortness of breath. No angina. No fever. No chills. She remains on a combination of cefepime as broad-spectrum antibiotic coverage and Flagyl. She is on Reglan for bowel activity 10 mg IV push every 6 hours when necessary. She is on IV Protonix pH is on Dilaudid for pain control per she is on Lovenox for DVT prophylaxis. That hemoglobin is stable at 8.5. Objective - Vital Signs Vital signs: Vital Signs Temp 99.0 F 10/11/19 08:00 Pulse 99 10/11/19 10:00 Resp 25 H 10/11/19 10:00 BP 114/79 10/11/19 10:00 Pulse Ox 92 L 10/11/19 10:00 Intake & Output 10/10/19 10/11/19 10/11/19 18:59 06:59 18:59 Intake Total 1582.2 6961.739 1742 Output Total 2725 1955 275 Balance -1142.8 -44.183 820 Weight 63.4 kg 69.7 kg Intake: IV 1125 1070 1095 Amiodarone 300 mg In 300 75 Dextrose 5% in Water 250 ml @ 0.5 MG/MIN 25 mls/hr IV .Q10H [facility] Rx#: [id number] Cefepime 2 gm In Sodium 100 Chloride 0.9% 100 ml @ 200 mls/hr IVPB Q8HR [facility] Rx#:[id number] Diltiazem 125 mg In 120 30 Sodium Chloride 0.9% 100 ml @ 10 MG/HR 10 mls/hr IV .[id number] [facility] Rx#: [id number] Lactated Ringers 1,000 ml 1125 650 @ 50 mls/hr IV .Q20H [facility] Rx#:[id number] Mvi, Adult No.4 with Vit 90 K 10 ml Trace (Conc-1Ml/ Dose) 1 ml In Amino Acid 5%-D15w+Lytes*E* 1,000 ml @ 30 mls/hr IV .Q24H [facility] Rx#:[id number] Potassium Chloride 20 meq 200 In Water For Injection 1 100ml.bag @ 50 mls/hr IVPB Q2H [facility] Rx#: [id number] Potassium Phosphate 10 500 mmol In Sodium Chloride 0 .9% 250 ml @ 125 mls/hr IV Q2H [facility] Rx#:[id number] metroNIDAZOLE-NS PMX 500 100 mg In Saline 1 100ml.bag @ 100 mls/hr IVPB Q8HR [facility] Rx#:[id number] Intake, IV Titration 457.2 840.817 Amount Amiodarone 300 mg In 212.917 Dextrose 5% in Water 250 ml @ 0.5 MG/MIN 25 mls/hr IV .Q10H [facility] Rx#: [id number] Cefepime 2 gm In Sodium 50 Chloride 0.9% 100 ml @ 200 mls/hr IVPB Q8HR [facility] Rx#:[id number] Diltiazem 125 mg In 104 101.5 Sodium Chloride 0.9% 100 ml @ 10 MG/HR 10 mls/hr IV .[id number] [facility] Rx#: [id number] Fat Emulsion 20% 250 ml @ 83.2 166.4 20.833 mls/hr IV MoWeFr [facility] Rx#:[id number] Mvi, Adult No.4 with Vit 120 360 K 10 ml Trace (Conc-1Ml/ Dose) 1 ml In Amino Acid 5%-D15w+Lytes*E* 1,000 ml @ 30 mls/hr IV .Q24H [facility] Rx#:[id number] metroNIDAZOLE-NS PMX 500 100 mg In Saline 1 100ml.bag @ 100 mls/hr IVPB Q8HR [facility] Rx#:[id number] Output: Gastric Drainage 600 Urine 1925 1355 275 Emesis 800 Other: Voiding Method Indwelling Catheter Indwelling Catheter Indwelling Catheter # Voids 1 ABP, PAP, CO, CI - Last Documented Arterial Blood Pressure 115/54 - Exam Gen. appearance she is calm comfortable sedated no acute distress. Currently her 2liters of oxygen by nasal cannula. Head exam was generally normal. There was no scleral icterus or corneal arcus. Mucous membranes were moist. Neck was supple and without jugular venous distension, thyromegaly, or carotid bruits. Carotids were easily palpable bilaterally. There was no adenopathy. Abdomen is showing postsurgical changes and the incision is dry clean and intact over the mid of the abdominal wall. Bowel sounds are absent. The patient is wearing an abdominal bounded. No direct tenderness. No rebound tenderness. No guarding. No drains noted. Lungs were clear to auscultation and percussion, and with normal diaphragmatic e xcursion. No wheezes or rales were noted. Cardiac exam revealed the PMI to be normally situated and sized. The rhythm is tachycardic this morning and is irregular consistent with atrial fibrillation with rapid ventricular response. There were no murmurs, rubs, clicks, or gallops. Examination of the extremities revealed easily palpable radial, femoral and pedal pulses. There was no cyanosis, clubbing or edema. Examination of the skin revealed no evidence of significant rashes, suspicious appearing nevi or other concerning lesions. Neurologically the patient is awake and alert and there is no focal neurological deficit. - Labs CBC & Chem 7: 10/11/19 05:17 10/11/19 05:17 Labs: Abnormal Lab Results - Last 24 Hours (Table) 10/10/19 10/10/19 10/10/19 Range/Units 12:12 18:26 23:50 WBC (3.8-10.6) k/uL RBC (3.80-5.40) m/uL Hgb (11.4-16.0) gm/dL Hct (34.0-46.0) % MCHC (31.0-37.0) g/dL Neutrophils # (1.3-7.7) k/uL Potassium (3.5-5.1) mmol/L Chloride (98-107) mmol/L Carbon Dioxide (22-30) mmol/L BUN (7-17) mg/dL Creatinine (0.52-1.04) mg/dL Glucose (74-99) mg/dL POC Glucose (mg/dL) 142 H 143 H (75-99) mg/dL Calcium (8.4-10.2) mg/dL Ionized Calcium Eliecer 5.4 H (4.5-5.3) mg/dL Phosphorus 1.7 L (2.5-4.5) mg/dL Albumin 2.2 L (3.5-5.0) g/dL Triglycerides 156 H (<150) mg/dL 10/11/19 10/11/19 10/11/19 Range/Units 05:17 05:17 05:52 WBC 10.9 H (3.8-10.6) k/uL RBC 3.26 L (3.80-5.40) m/uL Hgb 8.5 L (11.4-16.0) gm/dL Hct 28.0 L (34.0-46.0) % MCHC 30.2 L (31.0-37.0) g/dL Neutrophils # 8.9 H (1.3-7.7) k/uL Potassium 3.3 L (3.5-5.1) mmol/L Chloride 111 H (98-107) mmol/L Carbon Dioxide 19 L (22-30) mmol/L BUN 5 L (7-17) mg/dL Creatinine 0.28 L (0.52-1.04) mg/dL Glucose 128 H (74-99) mg/dL POC Glucose (mg/dL) 139 H (75-99) mg/dL Calcium 8.3 L (8.4-10.2) mg/dL Ionized Calcium Eliecer (4.5-5.3) mg/dL Phosphorus 1.7 L (2.5-4.5) mg/dL Albumin (3.5-5.0) g/dL Triglycerides (<150) mg/dL Microbiology - Last 24 Hours (Table) 10/06/19 18:21 Blood Culture - Preliminary Blood No Growth after 96 hours Assessment and Plan Plan: 1 recurrent small bowel obstruction, post exploratory laparotomy for bowel obstruction requiring extensive lysis of adhesions, small bowel resection 2, repair of an incisional hernia and the patient is postop day #4. The NG tube is still in place and the patient is requiring Dilaudid for pain control. Unfortunately, I do not appreciate any bowel sounds and the patient has not passed any flatus output is still considerably high. The patient was started TPN for nutritional support via PICC line in the left upper extremity. 2 history of multiple bowel surgeries for small bowel obstruction, most of the surgeries were done in [facility]. 3 abdominal pain secondary to above, improved 4 history of malignancies including breast cancer with previous bilateral mastectomy and previous history of hysterectomy for uterine cancer 5 history of CVA 6 history of DVT 7 history of coronary artery disease with previous [facility] 8 previous history of seizure many years back 9 small hiatal hernia 10 diverticulosis 11 hypertension 12 chronic anxiety/depression 13 chronic osteoarthritis 14 new-onset atrial fibrillation with rapid ventricular response. The patient's cardiac rhythm is still converted into normal sinus. The patient was treated with amiodarone and currently she is on amiodarone 0.5 mg per minute and the patient is also on Cardizem drip at 10 mg an hour. Cardiac rhythm is back to sinus. No anticoagulants for now. The potassium level needs to be replaced. The patient will be kept on IV medication until she is able to take oral medication. Plan Continue using incentive spirometer Increased mobility as tolerated Monitor electrodes in hemoglobin Amiodarone 0.5 mg per minute and this will be continued in conjunction with Cardizem. Will not switched to oral medication as long as the patient is still nothing by mouth for now. Continue the combination of IV cefepime and Flagyl Lovenox for DVT prophylaxis Keep NG tube in place Dilaudid for pain control We'll continue to follow.
[2019-10-11 11:21] LABS: Glucose,Whole Blood 120 mg/dL (75-99)
[2019-10-11] MEDS ORDERED: 1: MVI, ADULT NO.4 WITH VIT K 10 ML, TRACE (CONC-1ML/DOSE) 1 ML in AMINO ACID 5%-D15W+LY IV SCH ×3 (13:00)
--- NOTE | 2019-10-11 13:00 | P.PN ---
Subjective Progress Note Date: 10/11/19 Principal diagnosis: Small bowel obstruction Patient remains in the ICU. She appears comfortable. Says her pain is improved. She is passing flatus. Nasogastric tube remains in place. White blood cell count 10.9, hemoglobin 8.5. Objective - Vital Signs Vital signs: Vital Signs Temp 98.6 F 10/11/19 12:00 Pulse 90 10/11/19 12:00 Resp 20 10/11/19 12:00 BP 122/77 10/11/19 12:00 Pulse Ox 92 L 10/11/19 12:00 Intake & Output 10/10/19 10/11/19 10/11/19 18:59 06:59 18:59 Intake Total 1582.2 6977.818 5861 Output Total 2725 1955 405 Balance -1142.8 -44.183 820 Weight 63.4 kg 69.7 kg Intake: IV 1125 1070 1225 Amiodarone 300 mg In 300 75 Dextrose 5% in Water 250 ml @ 0.5 MG/MIN 25 mls/hr IV .Q10H [facility] Rx#: [id number] Amiodarone 300 mg In 50 Dextrose 5% in Water 250 ml @ 0.5 MG/MIN 25 mls/hr IV .Q10H [facility] Rx#: [id number] Cefepime 2 gm In Sodium 100 Chloride 0.9% 100 ml @ 200 mls/hr IVPB Q8HR [facility] Rx#:[id number] Diltiazem 125 mg In 120 50 Sodium Chloride 0.9% 100 ml @ 10 MG/HR 10 mls/hr IV .[id number] [facility] Rx#: [id number] Lactated Ringers 1,000 ml 1125 650 @ 50 mls/hr IV .Q20H [facility] Rx#:[id number] Mvi, Adult No.4 with Vit 150 K 10 ml Trace (Conc-1Ml/ Dose) 1 ml In Amino Acid 5%-D15w+Lytes*E* 1,000 ml @ 30 mls/hr IV .Q24H [facility] Rx#:[id number] Potassium Chloride 20 meq 200 In Water For Injection 1 100ml.bag @ 50 mls/hr IVPB Q2H [facility] Rx#: [id number] Potassium Phosphate 10 500 mmol In Sodium Chloride 0 .9% 250 ml @ 125 mls/hr IV Q2H [facility] Rx#:[id number] metroNIDAZOLE-NS PMX 500 100 mg In Saline 1 100ml.bag @ 100 mls/hr IVPB Q8HR [facility] Rx#:[id number] Intake, IV Titration 457.2 840.817 Amount Amiodarone 300 mg In 212.917 Dextrose 5% in Water 250 ml @ 0.5 MG/MIN 25 mls/hr IV .Q10H [facility] Rx#: [id number] Cefepime 2 gm In Sodium 50 Chloride 0.9% 100 ml @ 200 mls/hr IVPB Q8HR [facility] Rx#:[id number] Diltiazem 125 mg In 104 101.5 Sodium Chloride 0.9% 100 ml @ 10 MG/HR 10 mls/hr IV .[id number] [facility] Rx#: [id number] Fat Emulsion 20% 250 ml @ 83.2 166.4 20.833 mls/hr IV MoWeFr [facility] Rx#:[id number] Mvi, Adult No.4 with Vit 120 360 K 10 ml Trace (Conc-1Ml/ Dose) 1 ml In Amino Acid 5%-D15w+Lytes*E* 1,000 ml @ 30 mls/hr IV .Q24H [facility] Rx#:[id number] metroNIDAZOLE-NS PMX 500 100 mg In Saline 1 100ml.bag @ 100 mls/hr IVPB Q8HR [facility] Rx#:[id number] Output: Gastric Drainage 600 Urine 1925 1355 405 Emesis 800 Other: Voiding Method Indwelling Catheter Indwelling Catheter Indwelling Catheter # Voids 1 ABP, PAP, CO, CI - Last Documented Arterial Blood Pressure 115/54 - Exam Abdomen: Soft, mild distention, mild tenderness, dressing clean and dry - Labs CBC & Chem 7: 10/11/19 05:17 10/11/19 05:17 Labs: Abnormal Lab Results - Last 24 Hours (Table) 10/10/19 10/10/19 10/11/19 Range/Units 18:26 23:50 05:17 WBC (3.8-10.6) k/uL RBC (3.80-5.40) m/uL Hgb (11.4-16.0) gm/dL Hct (34.0-46.0) % MCHC (31.0-37.0) g/dL Neutrophils # (1.3-7.7) k/uL Potassium 3.3 L (3.5-5.1) mmol/L Chloride 111 H (98-107) mmol/L Carbon Dioxide 19 L (22-30) mmol/L BUN 5 L (7-17) mg/dL Creatinine 0.28 L (0.52-1.04) mg/dL Glucose 128 H (74-99) mg/dL POC Glucose (mg/dL) 142 H 143 H (75-99) mg/dL Calcium 8.3 L (8.4-10.2) mg/dL Phosphorus 1.7 L (2.5-4.5) mg/dL 10/11/19 10/11/19 10/11/19 Range/Units 05:17 05:52 11:19 WBC 10.9 H (3.8-10.6) k/uL RBC 3.26 L (3.80-5.40) m/uL Hgb 8.5 L (11.4-16.0) gm/dL Hct 28.0 L (34.0-46.0) % MCHC 30.2 L (31.0-37.0) g/dL Neutrophils # 8.9 H (1.3-7.7) k/uL Potassium (3.5-5.1) mmol/L Chloride (98-107) mmol/L Carbon Dioxide (22-30) mmol/L BUN (7-17) mg/dL Creatinine (0.52-1.04) mg/dL Glucose (74-99) mg/dL POC Glucose (mg/dL) 139 H 120 H (75-99) mg/dL Calcium (8.4-10.2) mg/dL Phosphorus (2.5-4.5) mg/dL Microbiology - Last 24 Hours (Table) 10/06/19 18:21 Blood Culture - Preliminary Blood No Growth after 96 hours Assessment and Plan (1) Bowel obstruction Narrative/Plan: Patient appears to be doing fairly well. Continue nasogastric tube today. Monitor bowel function. Repeat labs tomorrow. Current Visit: Yes Status: Acute Code(s): K56.609 - UNSP INTESTNL OBST, UNSP TO PARTIAL VERSUS COMPLETE OBST SNOMED Code(s): 12774015
--- NOTE | 2019-10-11 15:30 | P.PN ---
Subjective Patient is a pleasant the 64-year-old female came in with bowel obstruction, patient underwent expiratory laparotomy with additional lysis bowel resection, repair of incisional hernia. Patient was subsequently admitted to ICU and patient the was started on antibiotics for colitis with cefepime and Flagyl. There is no evidence of heart failure because of which I'm not discontinuing diuretics at this time. Patient has sinus tachycardia today patient is an NG tube with minimal output. Patient has hyperactive bowel sounds atelectasis on the chest x-ray. 10/09/2019 Patient went into atrial fibrillation patient received Cardizem IV push followed by IV Cardizem but blood pressure is low patient was started on amiodarone will wean off Cardizem because of low blood pressure. Patient although feels okay bit tired. Patient is presently not on anti-correlation cardiology is following the patient 10/10/2019 patient is postoperative day 3 patient still has significant output from the NG tube patient is being started on TPN as per general surgery patient is sinus rhythm presently on Cardizem and amiodarone drip which is being weaned off patient is presently not on any anticoagulation . 10/11/2019 The patient is presently on TPN lactated Ringer's patient still has an NG tube in place remains on amiodarone drip and Cardizem drip. Constitutional: Denied any fatigue denied any fever. Cardio vascular: denied any chest pain, palpitations Gastrointestinal denied any nausea vomiting Pulmonary: Denied any shortness of breath cough Neurologic denied any new focal deficits All inpatient medications were reviewed and appropriate changes in these medications as dictated in the interval history and assessment and plan. Objective - Vital Signs Vital signs: Vital Signs Temp 98.6 F 10/11/19 12:00 Pulse 98 10/11/19 15:00 Resp 20 10/11/19 15:00 BP 107/69 10/11/19 15:00 Pulse Ox 93 L 10/11/19 15:00 Intake & Output 10/10/19 10/11/19 10/11/19 18:59 06:59 18:59 Intake Total 1582.2 7719.863 6575 Output Total 2725 1955 755 Balance -1142.8 -44.183 695 Weight 63.4 kg 69.7 kg Intake: IV 1125 1070 1450 Amiodarone 300 mg In 300 75 Dextrose 5% in Water 250 ml @ 0.5 MG/MIN 25 mls/hr IV .Q10H [facility] Rx#: [id number] Amiodarone 300 mg In 125 Dextrose 5% in Water 250 ml @ 0.5 MG/MIN 25 mls/hr IV .Q10H [facility] Rx#: [id number] Cefepime 2 gm In Sodium 100 Chloride 0.9% 100 ml @ 200 mls/hr IVPB Q8HR [facility] Rx#:[id number] Diltiazem 125 mg In 120 80 Sodium Chloride 0.9% 100 ml @ 10 MG/HR 10 mls/hr IV .[id number] [facility] Rx#: [id number] Lactated Ringers 1,000 ml 1125 650 @ 50 mls/hr IV .Q20H [facility] Rx#:[id number] Mvi, Adult No.4 with Vit 210 K 10 ml Trace (Conc-1Ml/ Dose) 1 ml In Amino Acid 5%-D15w+Lytes*E* 1,000 ml @ 30 mls/hr IV .Q24H [facility] Rx#:[id number] Mvi, Adult No.4 with Vit 60 K 10 ml Trace (Conc-1Ml/ Dose) 1 ml Potassium Phosphate 10 mmol In Amino Acid 5%-D15w+Lytes* E* 1,000 ml @ 60 mls/hr IV .BY DURATION [facility] Rx#: [id number] Potassium Chloride 20 meq 200 In Water For Injection 1 100ml.bag @ 50 mls/hr IVPB Q2H [facility] Rx#: [id number] Potassium Phosphate 10 500 mmol In Sodium Chloride 0 .9% 250 ml @ 125 mls/hr IV Q2H [facility] Rx#:[id number] metroNIDAZOLE-NS PMX 500 100 mg In Saline 1 100ml.bag @ 100 mls/hr IVPB Q8HR [facility] Rx#:[id number] Intake, IV Titration 457.2 840.817 Amount Amiodarone 300 mg In 212.917 Dextrose 5% in Water 250 ml @ 0.5 MG/MIN 25 mls/hr IV .Q10H [facility] Rx#: [id number] Cefepime 2 gm In Sodium 50 Chloride 0.9% 100 ml @ 200 mls/hr IVPB Q8HR [facility] Rx#:[id number] Diltiazem 125 mg In 104 101.5 Sodium Chloride 0.9% 100 ml @ 10 MG/HR 10 mls/hr IV .[id number] [facility] Rx#: [id number] Fat Emulsion 20% 250 ml @ 83.2 166.4 20.833 mls/hr IV MoWeFr [facility] Rx#:[id number] Mvi, Adult No.4 with Vit 120 360 K 10 ml Trace (Conc-1Ml/ Dose) 1 ml In Amino Acid 5%-D15w+Lytes*E* 1,000 ml @ 30 mls/hr IV .Q24H [facility] Rx#:[id number] metroNIDAZOLE-NS PMX 500 100 mg In Saline 1 100ml.bag @ 100 mls/hr IVPB Q8HR [facility] Rx#:[id number] Output: Gastric Drainage 600 Urine 1925 1355 755 Emesis 800 Other: Voiding Method Indwelling Catheter Indwelling Catheter Indwelling Catheter # Voids 1 ABP, PAP, CO, CI - Last Documented Arterial Blood Pressure 115/54 - Exam PHYSICAL EXAMINATION: GENERAL: The patient is alert and oriented x3, not in any acute distress. Well developed, well nourished. 2 L of thoracic cannula oxygen HEENT: Pupils are round and equally reacting to light. EOMI. No scleral icterus. No conjunctival pallor. Normocephalic, atraumatic. No pharyngeal erythema. No thyromegaly. CARDIOVASCULAR: S1 and S2 present. No murmurs, rubs, or gallops. Tachycardic irregularly irregular rhythm PULMONARY: Chest is clear to auscultation, no wheezing or crackles. ABDOMEN: Normal bowel binder in place sluggish bowel sounds NG tube in place MUSCULOSKELETAL: No joint swelling or deformity. EXTREMITIES: No cyanosis, clubbing, or pedal edema. NEUROLOGICAL: Gross neurological examination did not reveal any focal deficits. SKIN: No rashes. - Labs CBC & Chem 7: 10/11/19 05:17 10/11/19 05:17 Labs: Abnormal Lab Results - Last 24 Hours (Table) 10/10/19 10/10/19 10/11/19 Range/Units 18:26 23:50 05:17 WBC (3.8-10.6) k/uL RBC (3.80-5.40) m/uL Hgb (11.4-16.0) gm/dL Hct (34.0-46.0) % MCHC (31.0-37.0) g/dL Neutrophils # (1.3-7.7) k/uL Potassium 3.3 L (3.5-5.1) mmol/L Chloride 111 H (98-107) mmol/L Carbon Dioxide 19 L (22-30) mmol/L BUN 5 L (7-17) mg/dL Creatinine 0.28 L (0.52-1.04) mg/dL Glucose 128 H (74-99) mg/dL POC Glucose (mg/dL) 142 H 143 H (75-99) mg/dL Calcium 8.3 L (8.4-10.2) mg/dL Phosphorus 1.7 L (2.5-4.5) mg/dL 10/11/19 10/11/19 10/11/19 Range/Units 05:17 05:52 11:19 WBC 10.9 H (3.8-10.6) k/uL RBC 3.26 L (3.80-5.40) m/uL Hgb 8.5 L (11.4-16.0) gm/dL Hct 28.0 L (34.0-46.0) % MCHC 30.2 L (31.0-37.0) g/dL Neutrophils # 8.9 H (1.3-7.7) k/uL Potassium (3.5-5.1) mmol/L Chloride (98-107) mmol/L Carbon Dioxide (22-30) mmol/L BUN (7-17) mg/dL Creatinine (0.52-1.04) mg/dL Glucose (74-99) mg/dL POC Glucose (mg/dL) 139 H 120 H (75-99) mg/dL Calcium (8.4-10.2) mg/dL Phosphorus (2.5-4.5) mg/dL Microbiology - Last 24 Hours (Table) 10/06/19 18:21 Blood Culture - Preliminary Blood No Growth after 96 hours Assessment and Plan Plan: -recurrent small bowel obstruction status post exploratory laparotomy additional lysis, and small bowel resection incisional hernia repair and operative findings of colitis for which patient is an above-mentioned antibiotics. Continue with the NG tube continue with cefepime and metronidazole -Atrial fibrillation, converted to sinus rhythm patient remains 7 Cardizem drip and amiodarone drip, will cut down the lactated Ringer's to 56. Respiration is being started on TPN, to prevent volume overload -History of DVT in the past patient will be resumed on Lovenox for DVT prophyla xis -Coronary artery disease -Seizure disorder -Hypertension -Depression -Osteoarthritis for above-mentioned chronic medical problems I'll continue with the her appropriate home medications although patient is presently nothing by mouth
[2019-10-11 18:39] LABS: Glucose,Whole Blood 136 mg/dL (75-99)
[2019-10-11 23:58] LABS: Glucose,Whole Blood 131 mg/dL (75-99)
[2019-10-12] MEDS: INSULIN ASPART (NovoLOG) 100 UNIT/ML VIAL SQ SCH ×4 (00:03→17:14)
[2019-10-12] MEDS: CEFEPIME 2 GM in SODIUM CHLORIDE 0.9% 100 ML IVPB SCH ×3 (00:08→15:33)
[2019-10-12] MEDS: AMIODARONE 300 MG in DEXTROSE 5% IN WATER 250 ML IV SCH ×4 (00:09→04:32)
[2019-10-12] MEDS: metroNIDAZOLE-NS PMX 500 MG in SALINE 1 100ML.BAG IVPB SCH ×3 (00:09→16:13)
[2019-10-12] MEDS: HYDROmorphone 0.5 MG/0.5 ML SYRINGE IVP PRN ×4 (01:12→23:09)
[2019-10-12] MEDS: DILTIAZEM 125 MG in SODIUM CHLORIDE 0.9% 100 ML IV SCH (01:13)
[2019-10-12 05:33] LABS: Glucose,Whole Blood 139 mg/dL (75-99)
[2019-10-12] MEDS: HYDROmorphone 1 MG/ML 1 ML SYRINGE IVP PRN ×5 (06:27→15:48)
[2019-10-12] MEDS: LACTATED RINGERS 1,000 ML IV SCH (06:54)
[2019-10-12 07:00] LABS: Basophils % (A) 0 %; Eosinophils # (A) 0.2 k/uL (0-0.7); Eosinophils % (A) 3 %; HGB 8.3 gm/dL (11.4-16.0); Hypochromasia Slight; Lymphocytes # (A) 0.8 k/uL (1.0-4.8); Lymphocytes % (A) 11 %; MCH 27.1 pg (25.0-35.0); MCHC 31.9 g/dL (31.0-37.0); MCV 84.9 fL (80.0-100.0); Mean Platelet Volume 7.3; Monocytes # (A) 0.5 k/uL (0-1.0); Monocytes % (A) 6 %; Neutrophils # (A) 5.6 k/uL (1.3-7.7); Neutrophils % (A) 77 %; Platelet Count 217 k/uL (150-450); RBC 3.07 m/uL (3.80-5.40); RDW 14.8 % (11.5-15.5); WBC 7.3 k/uL (3.8-10.6)
[2019-10-12 07:09] LABS: African American GFR (CKD) >90 (>60 ml/min/1.73 sqM); Anion Gap 8 mmol/L; Blood Urea Nitrogen 6 mg/dL (7-17); Calcium 7.8 mg/dL (8.4-10.2); Carbon Dioxide 20 mmol/L (22-30); Chloride 111 mmol/L (98-107); Glucose 206 mg/dL (74-99); Magnesium 1.9 mg/dL (1.6-2.3); Non-African American GFR(CKD) >90 (>60 ml/min/1.73 sqM); Phosphorus 2.5 mg/dL (2.5-4.5); Potassium 2.8 mmol/L (3.5-5.1); Sodium 139 mmol/L (137-145)
[2019-10-12] MEDS ORDERED: POTASSIUM CHLORIDE 20 MEQ in WATER FOR INJECTION 1 100ML.BAG IVPB SCH (07:30)
[2019-10-12] MEDS: LORazepam 2 MG/ML INJ IV PRN ×3 (08:34→19:38)
[2019-10-12] MEDS: ENOXAPARIN 40 MG/0.4 ML SYRINGE SQ SCH (08:34)
[2019-10-12] MEDS: POTASSIUM CHLORIDE 20 MEQ in WATER FOR INJECTION 1 100ML.BAG IVPB SCH ×3 (08:34→11:58)
[2019-10-12] MEDS: PANTOPRAZOLE 40 MG/10 ML VIAL IV SCH (08:34)
[2019-10-12] MEDS: METOPROLOL SUCCINATE (ER) 50 MG TAB.ER.24H PO SCH (08:35)
[2019-10-12] MEDS: ONDANSETRON 4 MG/2 ML VIAL IVP PRN ×2 (08:45→19:38)
--- NOTE | 2019-10-12 10:36 | P.PN ---
Subjective Progress Note Date: 10/12/19 Principal diagnosis: Small bowel obstruction Patient doing well today. She has had 3 bowel movement in the last 24 hours. White blood cell count normal. Nasogastric tube output is low. Objective - Vital Signs Vital signs: Vital Signs Temp 98.3 F 10/12/19 08:00 Pulse 95 10/12/19 09:00 Resp 23 10/12/19 09:00 BP 137/78 10/12/19 09:00 Pulse Ox 93 L 10/12/19 09:00 Intake & Output 10/11/19 10/12/19 10/12/19 18:59 06:59 18:59 Intake Total 2705 1824.5 340 Output Total 1550 1920 400 Balance 1155 -95.5 -60 Weight 70.1 kg Intake: IV 2330 1740 340 Amiodarone 300 mg In 75 Dextrose 5% in Water 250 ml @ 0.5 MG/MIN 25 mls/hr IV .Q10H [facility] Rx#: [id number] Amiodarone 300 mg In 225 300 50 Dextrose 5% in Water 250 ml @ 0.5 MG/MIN 25 mls/hr IV .Q10H [facility] Rx#: [id number] Cefepime 2 gm In Sodium 200 Chloride 0.9% 100 ml @ 200 mls/hr IVPB Q8HR [facility] Rx#:[id number] Diltiazem 125 mg In 120 120 20 Sodium Chloride 0.9% 100 ml @ 10 MG/HR 10 mls/hr IV .[id number] [facility] Rx#: [id number] Lactated Ringers 1,000 ml 300 600 50 @ 50 mls/hr IV .Q20H [facility] Rx#:[id number] Mvi, Adult No.4 with Vit 210 K 10 ml Trace (Conc-1Ml/ Dose) 1 ml In Amino Acid 5%-D15w+Lytes*E* 1,000 ml @ 30 mls/hr IV .Q24H [facility] Rx#:[id number] Mvi, Adult No.4 with Vit 300 720 120 K 10 ml Trace (Conc-1Ml/ Dose) 1 ml Potassium Phosphate 10 mmol In Amino Acid 5%-D15w+Lytes* E* 1,000 ml @ 60 mls/hr IV .BY DURATION [facility] Rx#: [id number] Potassium Chloride 20 meq 200 100 In Water For Injection 1 100ml.bag @ 50 mls/hr IVPB Q2H [facility] Rx#: [id number] Potassium Phosphate 10 500 mmol In Sodium Chloride 0 .9% 250 ml @ 125 mls/hr IV Q2H [facility] Rx#:[id number] metroNIDAZOLE-NS PMX 500 200 mg In Saline 1 100ml.bag @ 100 mls/hr IVPB Q8HR [facility] Rx#:[id number] Intake, IV Titration 375 84.5 Amount Amiodarone 300 mg In 250 Dextrose 5% in Water 250 ml @ 0.5 MG/MIN 25 mls/hr IV .Q10H [facility] Rx#: [id number] Diltiazem 125 mg In 125 84.5 Sodium Chloride 0.9% 100 ml @ 10 MG/HR 10 mls/hr IV .[id number] [facility] Rx#: [id number] Output: Gastric Drainage 300 500 Urine 1250 1420 400 Other: Voiding Method Indwelling Catheter Indwelling Catheter Indwelling Catheter ABP, PAP, CO, CI - Last Documented Arterial Blood Pressure 115/54 - Exam Abdomen: Soft, nondistended, mild tenderness, dressing clean dry - Labs CBC & Chem 7: 10/12/19 06:50 10/12/19 06:50 Labs: Abnormal Lab Results - Last 24 Hours (Table) 10/11/19 10/11/19 10/11/19 Range/Units 11:19 18:37 23:57 RBC (3.80-5.40) m/uL Hgb (11.4-16.0) gm/dL Hct (34.0-46.0) % Lymphocytes # (1.0-4.8) k/uL Potassium (3.5-5.1) mmol/L Chloride (98-107) mmol/L Carbon Dioxide (22-30) mmol/L BUN (7-17) mg/dL Creatinine (0.52-1.04) mg/dL Glucose (74-99) mg/dL POC Glucose (mg/dL) 120 H 136 H 131 H (75-99) mg/dL Calcium (8.4-10.2) mg/dL 10/12/19 10/12/19 10/12/19 Range/Units 05:31 06:50 06:50 RBC 3.07 L (3.80-5.40) m/uL Hgb 8.3 L (11.4-16.0) gm/dL Hct 26.0 L (34.0-46.0) % Lymphocytes # 0.8 L (1.0-4.8) k/uL Potassium 2.8 L (3.5-5.1) mmol/L Chloride 111 H (98-107) mmol/L Carbon Dioxide 20 L (22-30) mmol/L BUN 6 L (7-17) mg/dL Creatinine 0.28 L (0.52-1.04) mg/dL Glucose 206 H (74-99) mg/dL POC Glucose (mg/dL) 139 H (75-99) mg/dL Calcium 7.8 L (8.4-10.2) mg/dL Microbiology - Last 24 Hours (Table) 10/06/19 18:21 Blood Culture - Preliminary Blood No Growth after 120 hours Assessment and Plan (1) Bowel obstruction Narrative/Plan: Remove nasogastric tube. Begin clear liquids. Increase activity. Current Visit: Yes Status: Acute Code(s): K56.609 - UNSP INTESTNL OBST, UNSP TO PARTIAL VERSUS COMPLETE OBST SNOMED Code(s): 82425436
--- NOTE | 2019-10-12 11:26 | P.PN ---
Subjective Progress Note Date: 10/12/19 64-year-old female patient was admitted for abdominal pain and bloating. The patient is known to have previous history of partial bowel resection and she has had multiple previous bowel obstructions. Patient reported that she was having significant amount of pain in her left upper and lower quadrants. NG tube was inserted in the emergency department as the patient was given a CAT scan of the abdomen and pelvis that showed extensive surgical changes involving the bowel loops in the mid in the lower abdomen into the upper pelvis with focal fluid and fecal dilatation. Surrounding inflammatory changes noted. Findings were consistent with partial bowel obstruction and the possibility of closed loop obstruction or internal hernia cannot be completely excluded. There was no significant proximal dilatation and the findings were more localized. There was also fairly moderate extrahepatic and mild intrahepatic biliary dilatation noted. Also, there was a small to moderate-sized hiatal hernia. The stomach was poorly distended. No suspicious dilatation of the duodenal sweep. There was also scattered peripheral colonic diverticuli noted. The white cell count was 15.3. The liver function tests were within normal limits. Amylase lipase within normal limits. The patient was taken to the operating room today by Dr. Koehler and the patient underwent expiratory laparotomy. The patient was found to have frozen abdomen with extensive adhesions. The patient underwent lysis of adhesions and small bowel resection 2 and repair of an incisional hernia was also done. Postop, the patient was extubated in the operating room and the patient was brought into the intensive care unit for further monitoring. The patient is on normal saline at the rate of 60 mL an hour and she is also rec eiving lactated Ringer at the rate of 125 mL an hour. She is on IV cefepime as an empiric antibiotic coverage in combination with Flagyl. The patient is on Lovenox 40 prophylaxis 40 mg subcu every 24 hours. She is also on Dilaudid for pain control. She is awake and alert and her pain is under adequate control. She is wearing an abdominal bounded. Surgical wound site is dry clean and intact. No drains noted. On today's evaluation of 10/08/2019, I'm seeing this patient for a follow-up. The patient is postop day #1. No abdominal distention. She still having abdominal pain and she is requiring Dilaudid every 2 hours around 1 mg IV push. NG tube is in place and output is minimal. This surgical wound site is dry clean and intact. The patient has nearly absent or hypoactive bowel sounds. She still on lactated Ringer at the rate of 1 25 mL an hour. She is on 2 L of oxygen by nasa l cannula with a pulse of 96%. No fever. No chills. No other significant events overnight. She is otherwise calm and comfortable and she is using incentive spirometer. On 10/09/2019, I'm seeing this patient for a follow-up. The patient is postop day #2. She is still requiring Dilaudid for pain control. She claims that she is passing flatus. Abdomen is unchanged and the patient is not noted to have any significant abdominal distention. NG tube is in place. Output is minimal for now. she remains on lactated Ringer at the rate of 1 25 mL an hour. She is on oxygen 2 L per minute nasal cannula. Earlier this morning, the patient went into atrial fibrillation with rapid ventricular response. Heart rate was in the 170. The patient was given 5 mg of Cardizem bolus and started 5 mg an hour. Subsequently I give her another 20 mg of Cardizem bolus and increase the rate up to 10 mg an hour. This did not help with rate control and the patient was started on amiodarone. No chest pain. No palpitation. No syncope. No significant hemodynamic alteration along with his atrial fibrillation with rapid ventricular response. The patient remains on IV potassium supplements. She is using incentive spirometer. No other significant events overnight. The NG tube is still in place and output has been in the order of 500 mL over the past 24 hours. Body weight is up to 69 kg. on 10/10/2019, the patient is doing well. She is postop day #3. She is resting comfortably in bed. No respiratory difficulties. No cough sputum production chest that is so wheezing. NG tube is in place and output has been in the order of 300 mL overnight. The patient was having issues with atrial fibrillation with rapid ventricular response. The patient was given initially Cardizem drip and later on amiodarone for rate control. The patient converted yesterday afternoon to normal sinus rhythm. Currently still on amiodarone 0.5 mg/m as maintenance in addition to Cardizem drip at time of the gums an hour. Cardiology is managing this. Has not utilized any anticoagulation. The patient was moved on a chair today. Hemoglobin is at 7.7. Renal function stable. No significant electrolyte abnormalities. She is still nothing by mouth. No chest pain. Using incentive spirometer. On 10/11/2019 the patient is postop day #4. NG tube is in place and the patient has a left upper extremity PICC line and she was started on TPN for nutritional support. The patient unfortunately is not having any significant bowel activity. She remains nothing by mouth. NG tube output has been in the order of 500-600 mL over the past 24 hours. The pain is currently running at 30 mL an hour. The patient is also on lactated Ringer at the rate of 50 mL an hour. The patient remains nothing by mouth. The patient is on amiodarone drip at 0.5 mg per minute and Cardizem drip at 10 mg an hour and the patient is a normal sinus rhythm. She did undergo some minimal amount of walking and ambulation yes terday. No chest pain. No shortness of breath. No angina. No fever. No chills. She remains on a combination of cefepime as broad-spectrum antibiotic coverage and Flagyl. She is on Reglan for bowel activity 10 mg IV push every 6 hours when necessary. She is on IV Protonix pH is on Dilaudid for pain control per she is on Lovenox for DVT prophylaxis. That hemoglobin is stable at 8.5. On 10/12/2019 the patient is postop day #5. Output from the NG is less compared to yesterday. The patient has passed flatus. No bowel activity yet. She remains on TPN for nutritional support. Her pain is subsided. Overall she is feeling better. No significant nausea. She remains nothing by mouth. She is also on IV cefepime and Flagyl as broad-spectrum antibiotic coverage. She is receiving Dilaudid somewhere between 0.5 and 1 mg every 2-3 hours for pain control. No altered mentation. No chest pain. She remains on Lovenox for DVT prophylaxis. Her current hemoglobin is at 8.3. Renal function is stable. Objective - Vital Signs Vital signs: Vital Signs Temp 98.3 F 10/12/19 08:00 Pulse 97 10/12/19 11:00 Resp 18 10/12/19 11:00 BP 136/81 10/12/19 11:00 Pulse Ox 93 L 10/12/19 11:00 Intake & Output 10/11/19 10/12/19 10/12/19 18:59 06:59 18:59 Intake Total 2705 1824.5 435 Output Total 1550 1920 650 Balance 1155 -95.5 -215 Weight 70.1 kg Intake: IV 2330 1740 435 Amiodarone 300 mg In 75 Dextrose 5% in Water 250 ml @ 0.5 MG/MIN 25 mls/hr IV .Q10H [facility] Rx#: [id number] Amiodarone 300 mg In 225 300 75 Dextrose 5% in Water 250 ml @ 0.5 MG/MIN 25 mls/hr IV .Q10H [facility] Rx#: [id number] Cefepime 2 gm In Sodium 200 Chloride 0.9% 100 ml @ 200 mls/hr IVPB Q8HR [facility] Rx#:[id number] Diltiazem 125 mg In 120 120 30 Sodium Chloride 0.9% 100 ml @ 10 MG/HR 10 mls/hr IV .[id number] [facility] Rx#: [id number] Lactated Ringers 1,000 ml 300 600 50 @ 50 mls/hr IV .Q20H [facility] Rx#:[id number] Mvi, Adult No.4 with Vit 210 K 10 ml Trace (Conc-1Ml/ Dose) 1 ml In Amino Acid 5%-D15w+Lytes*E* 1,000 ml @ 30 mls/hr IV .Q24H [facility] Rx#:[id number] Mvi, Adult No.4 with Vit 300 720 180 K 10 ml Trace (Conc-1Ml/ Dose) 1 ml Potassium Phosphate 10 mmol In Amino Acid 5%-D15w+Lytes* E* 1,000 ml @ 60 mls/hr IV .BY DURATION [facility] Rx#: [id number] Potassium Chloride 20 meq 200 100 In Water For Injection 1 100ml.bag @ 50 mls/hr IVPB Q2H [facility] Rx#: [id number] Potassium Phosphate 10 500 mmol In Sodium Chloride 0 .9% 250 ml @ 125 mls/hr IV Q2H [facility] Rx#:[id number] metroNIDAZOLE-NS PMX 500 200 mg In Saline 1 100ml.bag @ 100 mls/hr IVPB Q8HR [facility] Rx#:[id number] Intake, IV Titration 375 84.5 Amount Amiodarone 300 mg In 250 Dextrose 5% in Water 250 ml @ 0.5 MG/MIN 25 mls/hr IV .Q10H [facility] Rx#: [id number] Diltiazem 125 mg In 125 84.5 Sodium Chloride 0.9% 100 ml @ 10 MG/HR 10 mls/hr IV .[id number] [facility] Rx#: [id number] Output: Gastric Drainage 300 500 Urine 1250 1420 650 Other: Voiding Method Indwelling Catheter Indwelling Catheter Indwelling Catheter ABP, PAP, CO, CI - Last Documented Arterial Blood Pressure 115/54 - Exam Gen. appearance she is calm comfortable sedated no acute distress. Currently her 2liters of oxygen by nasal cannula. Head exam was generally normal. There was no scleral icterus or corneal arcus. Mucous membranes were moist. Neck was supple and without jugular venous distension, thyromegaly, or carotid bruits. Carotids were easily palpable bilaterally. There was no adenopathy. Abdomen is showing postsurgical changes and the incision is dry clean and intact over the mid of the abdominal wall. Bowel sounds are absent. The patient is wearing an abdominal bounded. No direct tenderness. No rebound tenderness. No guarding. No drains noted. Lungs were clear to auscultation and percussion, and with normal diaphragmatic excursion. No wheezes or rales were noted. Cardiac exam revealed the PMI to be normally situated and sized. The rhythm is tachycardic this morning and is irregular consistent with atrial fibrillation with rapid ventricular response. There were no murmurs, rubs, clicks, or g allops. Examination of the extremities revealed easily palpable radial, femoral and pedal pulses. There was no cyanosis, clubbing or edema. Examination of the skin revealed no evidence of significant rashes, suspicious appearing nevi or other concerning lesions. Neurologically the patient is awake and alert and there is no focal neurological deficit. - Labs CBC & Chem 7: 10/12/19 06:50 10/12/19 06:50 Labs: Abnormal Lab Results - Last 24 Hours (Table) 10/11/19 10/11/19 10/12/19 Range/Units 18:37 23:57 05:31 RBC (3.80-5.40) m/uL Hgb (11.4-16.0) gm/dL Hct (34.0-46.0) % Lymphocytes # (1.0-4.8) k/uL Potassium (3.5-5.1) mmol/L Chloride (98-107) mmol/L Carbon Dioxide (22-30) mmol/L BUN (7-17) mg/dL Creatinine (0.52-1.04) mg/dL Glucose (74-99) mg/dL POC Glucose (mg/dL) 136 H 131 H 139 H (75-99) mg/dL Calcium (8.4-10.2) mg/dL 10/12/19 10/12/19 Range/Units 06:50 06:50 RBC 3.07 L (3.80-5.40) m/uL Hgb 8.3 L (11.4-16.0) gm/dL Hct 26.0 L (34.0-46.0) % Lymphocytes # 0.8 L (1.0-4.8) k/uL Potassium 2.8 L (3.5-5.1) mmol/L Chloride 111 H (98-107) mmol/L Carbon Dioxide 20 L (22-30) mmol/L BUN 6 L (7-17) mg/dL Creatinine 0.28 L (0.52-1.04) mg/dL Glucose 206 H (74-99) mg/dL POC Glucose (mg/dL) (75-99) mg/dL Calcium 7.8 L (8.4-10.2) mg/dL Microbiology - Last 24 Hours (Table) 10/06/19 18:21 Blood Culture - Preliminary Blood No Growth after 120 hours Assessment and Plan Plan: 1 recurrent small bowel obstruction, post exploratory laparotomy for bowel obstruction requiring extensive lysis of adhesions, small bowel resection 2, repair of an incisional hernia and the patient is postop day #5. The patient on TPN for nutritional support. NG tube still in place although the output is improved and the net output from the NG tube has been around 400-500 mL over the past 24 hours. Abdomen is less distended. There are some bowel sounds. 2 history of multiple bowel surgeries for small bowel obstruction, most of the surgeries were done in [facility]. 3 abdominal pain secondary to above, improved 4 history of malignancies including breast cancer with previous bilateral mastectomy and previous history of hysterectomy for uterine cancer 5 history of CVA 6 history of DVT 7 history of coronary artery disease with previous DE 8 previous history of seizure many years back 9 small hiatal hernia 10 diverticulosis 11 hypertension 12 chronic anxiety/depression 13 chronic osteoarthritis 14 new-onset atrial fibrillation with rapid ventricular response. The patient's cardiac rhythm is still converted into normal sinus. The patient was treated wi th amiodarone and currently she is on amiodarone 0.5 mg per minute and the patient is also on Cardizem drip at 10 mg an hour. Cardiac rhythm is back to sinus. No anticoagulants for now. The potassium level needs to be replaced. The patient will be kept on IV medication until she is able to take oral medication. Plan Continue using incentive spirometer Increased mobility as tolerated Hemoglobin stable at 8.3 Amiodarone 0.5 mg per minute and this will be continued in conjunction with Cardizem. Will not switched to oral medication as long as the patient is still nothing by mouth for now. Continue the combination of IV cefepime and Flagyl Lovenox for DVT prophylaxis Keep NG tube in place Dilaudid for pain control We'll continue to follow.
[2019-10-12] MEDS: METOPROLOL SUCCINATE (ER) 100 MG TAB.ER.24H PO SCH (11:58)
[2019-10-12 12:07] LABS: Glucose,Whole Blood 130 mg/dL (75-99)
--- NOTE | 2019-10-12 13:41 | P.PN ---
Subjective Patient is back into sinus rhythm She was seen by Dr. Foy and initially started on IV Cardizem and IV amiodarone She is doing well. She is postop day 5 Output for the NG is reduced She is passing some gas She remains on TPN She is not on any oral medications Hemoglobin 8.3 On examination blood pressure is 136/81 mmHg normal respirations pulse rate in the 90s Heart sounds are regular Supple neck no JVD Breath sounds are clear to auscultation No wheezing no rales no rhonchi Today we have restarted metoprolol succinate 100 mg by mouth daily line IV Cardizem discontinued I would not use IV amiodarone at this time unless she has recurrent atrial fibrillation She is on Lovenox 40 mg subcu daily Oral anticoagulation to be resumed when okay with surgery From a cardiac standpoint we will follow-up on a when necessary basis Please call if she has further episodes of atrial fibrillation Objective - Vital Signs Vital signs: Vital Signs Temp 98.3 F 10/12/19 08:00 Pulse 97 10/12/19 11:00 Resp 18 10/12/19 11:00 BP 136/81 10/12/19 11:00 Pulse Ox 93 L 10/12/19 11:00 Intake & Output 10/11/19 10/12/19 10/12/19 18:59 06:59 18:59 Intake Total 2705 1824.5 435 Output Total 1550 1920 650 Balance 1155 -95.5 -215 Weight 70.1 kg Intake: IV 2330 1740 435 Amiodarone 300 mg In 75 Dextrose 5% in Water 250 ml @ 0.5 MG/MIN 25 mls/hr IV .Q10H [facility] Rx#: [id number] Amiodarone 300 mg In 225 300 75 Dextrose 5% in Water 250 ml @ 0.5 MG/MIN 25 mls/hr IV .Q10H [facility] Rx#: [id number] Cefepime 2 gm In Sodium 200 Chloride 0.9% 100 ml @ 200 mls/hr IVPB Q8HR [facility] Rx#:[id number] Diltiazem 125 mg In 120 120 30 Sodium Chloride 0.9% 100 ml @ 10 MG/HR 10 mls/hr IV .[id number] [facility] Rx#: [id number] Lactated Ringers 1,000 ml 300 600 50 @ 50 mls/hr IV .Q20H [facility] Rx#:[id number] Mvi, Adult No.4 with Vit 210 K 10 ml Trace (Conc-1Ml/ Dose) 1 ml In Amino Acid 5%-D15w+Lytes*E* 1,000 ml @ 30 mls/hr IV .Q24H [facility] Rx#:[id number] Mvi, Adult No.4 with Vit 300 720 180 K 10 ml Trace (Conc-1Ml/ Dose) 1 ml Potassium Phosphate 10 mmol In Amino Acid 5%-D15w+Lytes* E* 1,000 ml @ 60 mls/hr IV .BY DURATION [facility] Rx#: [id number] Potassium Chloride 20 meq 200 100 In Water For Injection 1 100ml.bag @ 50 mls/hr IVPB Q2H [facility] Rx#: [id number] Potassium Phosphate 10 500 mmol In Sodium Chloride 0 .9% 250 ml @ 125 mls/hr IV Q2H [facility] Rx#:[id number] metroNIDAZOLE-NS PMX 500 200 mg In Saline 1 100ml.bag @ 100 mls/hr IVPB Q8HR [facility] Rx#:[id number] Intake, IV Titration 375 84.5 Amount Amiodarone 300 mg In 250 Dextrose 5% in Water 250 ml @ 0.5 MG/MIN 25 mls/hr IV .Q10H [facility] Rx#: [id number] Diltiazem 125 mg In 125 84.5 Sodium Chloride 0.9% 100 ml @ 10 MG/HR 10 mls/hr IV .[id number] [facility] Rx#: [id number] Output: Gastric Drainage 300 500 Urine 1250 1420 650 Other: Voiding Method Indwelling Catheter Indwelling Catheter Indwelling Catheter ABP, PAP, CO, CI - Last Documented Arterial Blood Pressure 115/54 - Labs CBC & Chem 7: 10/12/19 06:50 10/12/19 06:50 Labs: Abnormal Lab Results - Last 24 Hours (Table) 10/11/19 10/11/19 10/12/19 Range/Units 18:37 23:57 05:31 RBC (3.80-5.40) m/uL Hgb (11.4-16.0) gm/dL Hct (34.0-46.0) % Lymphocytes # (1.0-4.8) k/uL Potassium (3.5-5.1) mmol/L Chloride (98-107) mmol/L Carbon Dioxide (22-30) mmol/L BUN (7-17) mg/dL Creatinine (0.52-1.04) mg/dL Glucose (74-99) mg/dL POC Glucose (mg/dL) 136 H 131 H 139 H (75-99) mg/dL Calcium (8.4-10.2) mg/dL 10/12/19 10/12/19 10/12/19 Range/Units 06:50 06:50 12:06 RBC 3.07 L (3.80-5.40) m/uL Hgb 8.3 L (11.4-16.0) gm/dL Hct 26.0 L (34.0-46.0) % Lymphocytes # 0.8 L (1.0-4.8) k/uL Potassium 2.8 L (3.5-5.1) mmol/L Chloride 111 H (98-107) mmol/L Carbon Dioxide 20 L (22-30) mmol/L BUN 6 L (7-17) mg/dL Creatinine 0.28 L (0.52-1.04) mg/dL Glucose 206 H (74-99) mg/dL POC Glucose (mg/dL) 130 H (75-99) mg/dL Calcium 7.8 L (8.4-10.2) mg/dL Microbiology - Last 24 Hours (Table) 10/06/19 18:21 Blood Culture - Preliminary Blood No Growth after 120 hours
--- NOTE | 2019-10-12 14:18 | P.PN ---
Subjective Patient is a pleasant the 64-year-old female came in with bowel obstruction, patient underwent expiratory laparotomy with additional lysis bowel resection, repair of incisional hernia. Patient was subsequently admitted to ICU and patient the was started on antibiotics for colitis with cefepime and Flagyl. There is no evidence of heart failure because of which I'm not discontinuing diuretics at this time. Patient has sinus tachycardia today patient is an NG tube with minimal output. Patient has hyperactive bowel sounds atelectasis on the chest x-ray. 10/09/2019 Patient went into atrial fibrillation patient received Cardizem IV push followed by IV Cardizem but blood pressure is low patient was started on amiodarone will wean off Cardizem because of low blood pressure. Patient although feels okay bit tired. Patient is presently not on anti-correlation cardiology is following the patient 10/10/2019 patient is postoperative day 3 patient still has significant output from the NG tube patient is being started on TPN as per general surgery patient is sinus rhythm presently on Cardizem and amiodarone drip which is being weaned off patient is presently not on any anticoagulation . 10/11/2019 The patient is presently on TPN lactated Ringer's patient still has an NG tube in place remains on amiodarone drip and Cardizem drip. 10/12/2019 Patient was started on diet patient has waspassing gas. Patient is sinus rhythm today patient to NG tube is out at this time. Patient's IV Cardizem was discontinued IV amiodarone was discontinued patient is presently on metoprolol patient looks much better today. Patient remains on TPN Constitutional: Denied any fatigue denied any fever. Cardio vascular: denied any chest pain, palpitations Gastrointestinal denied any nausea vomiting Pulmonary: Denied any shortness of breath cough Neurologic denied any new focal deficits All inpatient medications were reviewed and appropriate changes in these medications as dictated in the interval history and assessment and plan. Objective - Vital Signs Vital signs: Vital Signs Temp 98.3 F 10/12/19 12:00 Pulse 96 10/12/19 13:00 Resp 15 10/12/19 13:00 BP 115/74 10/12/19 12:00 Pulse Ox 96 10/12/19 13:00 Intake & Output 10/11/19 10/12/19 10/12/19 18:59 06:59 18:59 Intake Total 2705 1824.5 895 Output Total 1550 1920 1100 Balance 1155 -95.5 -205 Weight 70.1 kg Intake: IV 2330 1740 895 Amiodarone 300 mg In 75 Dextrose 5% in Water 250 ml @ 0.5 MG/MIN 25 mls/hr IV .Q10H [facility] Rx#: [id number] Amiodarone 300 mg In 225 300 75 Dextrose 5% in Water 250 ml @ 0.5 MG/MIN 25 mls/hr IV .Q10H [facility] Rx#: [id number] Cefepime 2 gm In Sodium 200 100 Chloride 0.9% 100 ml @ 200 mls/hr IVPB Q8HR [facility] Rx#:[id number] Diltiazem 125 mg In 120 120 30 Sodium Chloride 0.9% 100 ml @ 10 MG/HR 10 mls/hr IV .[id number] [facility] Rx#: [id number] Lactated Ringers 1,000 ml 300 600 50 @ 50 mls/hr IV .Q20H [facility] Rx#:[id number] Mvi, Adult No.4 with Vit 210 K 10 ml Trace (Conc-1Ml/ Dose) 1 ml In Amino Acid 5%-D15w+Lytes*E* 1,000 ml @ 30 mls/hr IV .Q24H [facility] Rx#:[id number] Mvi, Adult No.4 with Vit 300 720 240 K 10 ml Trace (Conc-1Ml/ Dose) 1 ml Potassium Phosphate 10 mmol In Amino Acid 5%-D15w+Lytes* E* 1,000 ml @ 60 mls/hr IV .BY DURATION [facility] Rx#: [id number] Potassium Chloride 20 meq 200 300 In Water For Injection 1 100ml.bag @ 50 mls/hr IVPB Q2H [facility] Rx#: [id number] Potassium Phosphate 10 500 mmol In Sodium Chloride 0 .9% 250 ml @ 125 mls/hr IV Q2H [facility] Rx#:[id number] metroNIDAZOLE-NS PMX 500 200 100 mg In Saline 1 100ml.bag @ 100 mls/hr IVPB Q8HR [facility] Rx#:[id number] Intake, IV Titration 375 84.5 Amount Amiodarone 300 mg In 250 Dextrose 5% in Water 250 ml @ 0.5 MG/MIN 25 mls/hr IV .Q10H [facility] Rx#: [id number] Diltiazem 125 mg In 125 84.5 Sodium Chloride 0.9% 100 ml @ 10 MG/HR 10 mls/hr IV .[id number] [facility] Rx#: [id number] Output: Gastric Drainage 300 500 Urine 1250 1420 1100 Other: Voiding Method Indwelling Catheter Indwelling Catheter Indwelling Catheter ABP, PAP, CO, CI - Last Documented Arterial Blood Pressure 115/54 - Exam PHYSICAL EXAMINATION: GENERAL: The patient is alert and oriented x3, not in any acute distress. Well developed, well nourished. 2 L ofnasal cannula oxygen HEENT: Pupils are round and equally reacting to light. EOMI. No scleral icterus. No conjunctival pallor. Normocephalic, atraumatic. No pharyngeal erythema. No thyromegaly. CARDIOVASCULAR: S1 and S2 present. No murmurs, rubs, or gallops. sinus rhythm rate controlled PULMONARY: Chest is clear to auscultation, no wheezing or crackles. ABDOMEN: Normal bowel binder in place sluggish bowel sounds NG tube in place MUSCULOSKELETAL: No joint swelling or deformity. EXTREMITIES: No cyanosis, clubbing, or pedal edema. NEUROLOGICAL: Gross neurological examination did not reveal any focal deficits. SKIN: No rashes. - Labs CBC & Chem 7: 10/12/19 06:50 10/12/19 06:50 Labs: Abnormal Lab Results - Last 24 Hours (Table) 10/11/19 10/11/19 10/12/19 Range/Units 18:37 23:57 05:31 RBC (3.80-5.40) m/uL Hgb (11.4-16.0) gm/dL Hct (34.0-46.0) % Lymphocytes # (1.0-4.8) k/uL Potassium (3.5-5.1) mmol/L Chloride (98-107) mmol/L Carbon Dioxide (22-30) mmol/L BUN (7-17) mg/dL Creatinine (0.52-1.04) mg/dL Glucose (74-99) mg/dL POC Glucose (mg/dL) 136 H 131 H 139 H (75-99) mg/dL Calcium (8.4-10.2) mg/dL 10/12/19 10/12/19 10/12/19 Range/Units 06:50 06:50 12:06 RBC 3.07 L (3.80-5.40) m/uL Hgb 8.3 L (11.4-16.0) gm/dL Hct 26.0 L (34.0-46.0) % Lymphocytes # 0.8 L (1.0-4.8) k/uL Potassium 2.8 L (3.5-5.1) mmol/L Chloride 111 H (98-107) mmol/L Carbon Dioxide 20 L (22-30) mmol/L BUN 6 L (7-17) mg/dL Creatinine 0.28 L (0.52-1.04) mg/dL Glucose 206 H (74-99) mg/dL POC Glucose (mg/dL) 130 H (75-99) mg/dL Calcium 7.8 L (8.4-10.2) mg/dL Microbiology - Last 24 Hours (Table) 10/06/19 18:21 Blood Culture - Preliminary Blood No Growth after 120 hours Assessment and Plan Plan: -recurrent small bowel obstruction status post exploratory laparotomy additional lysis, and small bowel resection incisional hernia repair and operative findings of colitis for which patient is an above-mentioned antibiotics. Continue with the NG tube continue with cefepime and metronidazole, patient's NG tube was removed patient is passing gas looks much better -Atrial fibrillation, converted to sinus rhythm patient was started on metoprolol oral.patient is on DVT prophylaxis dose of Lovenox -History of DVT in the past patient will be resumed on Lovenox for DVT proph ylaxis -Coronary artery disease -Seizure disorder -Hypertension -Depression -Osteoarthritis for above-mentioned chronic medical problems I'll continue with the her appropriate home medications although patient is presently nothing by mouth
[2019-10-12 17:14] LABS: Glucose,Whole Blood 156 mg/dL (75-99)
[2019-10-12 23:26] LABS: Glucose,Whole Blood 105 mg/dL (75-99)
[2019-10-13] MEDS: INSULIN ASPART (NovoLOG) 100 UNIT/ML VIAL SQ SCH ×3 (00:36→12:55)
[2019-10-13] MEDS: CEFEPIME 2 GM in SODIUM CHLORIDE 0.9% 100 ML IVPB SCH ×4 (00:42→23:27)
[2019-10-13] MEDS: metroNIDAZOLE-NS PMX 500 MG in SALINE 1 100ML.BAG IVPB SCH ×3 (00:43→17:28)
[2019-10-13] MEDS: HYDROmorphone 0.5 MG/0.5 ML SYRINGE IVP PRN ×3 (02:50→08:47)
[2019-10-13 05:06] LABS: Basophils % (A) 0 %; Eosinophils # (A) 0.2 k/uL (0-0.7); Eosinophils % (A) 3 %; HCT 26.2 % (34.0-46.0); HGB 8.3 gm/dL (11.4-16.0); Hypochromasia Marked; Lymphocytes % (A) 14 %; MCH 27.9 pg (25.0-35.0); MCHC 31.8 g/dL (31.0-37.0); MCV 87.7 fL (80.0-100.0); Mean Platelet Volume 7.8; Monocytes # (A) 0.5 k/uL (0-1.0); Monocytes % (A) 6 %; Neutrophils # (A) 5.2 k/uL (1.3-7.7); Neutrophils % (A) 75 %; Platelet Count 247 k/uL (150-450); RBC 2.98 m/uL (3.80-5.40); RDW 14.8 % (11.5-15.5)
[2019-10-13 05:14] LABS: African American GFR (CKD) >90 (>60 ml/min/1.73 sqM); Anion Gap 7 mmol/L; Blood Urea Nitrogen 8 mg/dL (7-17); Calcium 8.4 mg/dL (8.4-10.2); Carbon Dioxide 18 mmol/L (22-30); Chloride 113 mmol/L (98-107); Glucose 127 mg/dL (74-99); Magnesium 2.1 mg/dL (1.6-2.3); Non-African American GFR(CKD) >90 (>60 ml/min/1.73 sqM); Phosphorus 3.3 mg/dL (2.5-4.5); Potassium 3.8 mmol/L (3.5-5.1); Sodium 138 mmol/L (137-145)
[2019-10-13 05:32] LABS: Glucose,Whole Blood 123 mg/dL (75-99)
[2019-10-13] MEDS: LORazepam 2 MG/ML INJ IV PRN ×4 (05:36→19:57)
[2019-10-13] MEDS ORDERED: POTASSIUM CHLORIDE ER 20 MEQ TAB.ER PO SCH (08:00)
[2019-10-13] MEDS: ENOXAPARIN 40 MG/0.4 ML SYRINGE SQ SCH (08:46)
[2019-10-13] MEDS: PANTOPRAZOLE 40 MG/10 ML VIAL IV SCH (08:47)
[2019-10-13] MEDS: ONDANSETRON 4 MG/2 ML VIAL IVP PRN (08:47)
[2019-10-13] MEDS: METOPROLOL SUCCINATE (ER) 100 MG TAB.ER.24H PO SCH (08:47)
[2019-10-13 10:21] VITALS: BMI 31.0
[2019-10-13] MEDS: HYDROmorphone 1 MG/ML 1 ML SYRINGE IVP PRN ×4 (10:35→19:56)
[2019-10-13 12:00] LABS: Glucose,Whole Blood 116 mg/dL (75-99)
--- NOTE | 2019-10-13 12:16 | P.PN ---
Subjective Progress Note Date: 10/13/19 Principal diagnosis: Recurrent small bowel obstruction, status post exploratory laparotomy and lysis of adhesions, small bowel resection and repair of incisional hernia postoperati ve day #6. 64-year-old female patient was admitted for abdominal pain and bloating. The patient is known to have previous history of partial bowel resection and she has had multiple previous bowel obstructions. Patient reported that she was having significant amount of pain in her left upper and lower quadrants. NG tube was inserted in the emergency department as the patient was given a CAT scan of the abdomen and pelvis that showed extensive surgical changes involving the bowel loops in the mid in the lower abdomen into the upper pelvis with focal fluid and fecal dilatation. Surrounding inflammatory changes noted. Findings were consistent with partial bowel obstruction and the possibility of closed loop obstruction or internal hernia cannot be completely excluded. There was no sign ificant proximal dilatation and the findings were more localized. There was also fairly moderate extrahepatic and mild intrahepatic biliary dilatation noted. Also, there was a small to moderate-sized hiatal hernia. The stomach was poorly distended. No suspicious dilatation of the duodenal sweep. There was also scattered peripheral colonic diverticuli noted. The white cell count was 15.3. The liver function tests were within normal limits. Amylase lipase within normal limits. The patient was taken to the operating room today by Dr. Koehler and the patient underwent expiratory laparotomy. The patient was found to have frozen abdomen with extensive adhesions. The patient underwent lysis of adhesions and small bowel resection 2 and repair of an incisional hernia was also done. Postop, the patient was extubated in the operating room and the patient was brought into the intensive care unit for further monitoring. The patient is on normal saline at the rate of 60 mL an hour and she is also receiving lactated Ringer at the rate of 125 mL an hour. She is on IV cefepime as an empiric antibiotic coverage in combination with Flagyl. The patient is on Lovenox 40 prophylaxis 40 mg subcu every 24 hours. She is also on Dilaudid for pain control. She is awake and alert and her pain is under adequate control. She is wearing an abdominal bounded. Surgical wound site is dry clean and intact. No drains noted. Reevaluated today on 10/13/19, patient is postoperative day #6. Patient is doing well, relatively asymptomatic, remains on TPN for nutritional support, she has some vague abdominal discomfort. But overall she is feeling much better. No nausea, no vomiting. Remains nothing by mouth. Patient denies any shortness of breath, no cough no wheezing, no chest pain. Hemoglobin is 8.3 WBC count is 7 Summary normal renal profile is normal. Objective - Vital Signs Vital signs: Vital Signs Temp 98.9 F 10/13/19 08:00 Pulse 110 H 10/13/19 09:00 Resp 20 10/13/19 09:00 BP 119/69 10/13/19 09:00 Pulse Ox 95 10/13/19 09:00 Intake & Output 10/12/19 10/13/19 10/13/19 18:59 06:59 18:59 Intake Total 1496.167 720 340 Output Total 1725 1450 440 Balance -228.833 -730 -100 Weight 72.1 kg 72.1 kg Intake: IV 1395 720 340 0.9 @ 20 20 Amiodarone 300 mg In 75 Dextrose 5% in Water 250 ml @ 0.5 MG/MIN 25 mls/hr IV .Q10H [facility] Rx#: [id number] Cefepime 2 gm In Sodium 200 100 Chloride 0.9% 100 ml @ 200 mls/hr IVPB Q8HR [facility] Rx#:[id number] Diltiazem 125 mg In 30 Sodium Chloride 0.9% 100 ml @ 10 MG/HR 10 mls/hr IV .[id number] [facility] Rx#: [id number] Lactated Ringers 1,000 ml 50 @ 50 mls/hr IV .Q20H [facility] Rx#:[id number] Mvi, Adult No.4 with Vit 540 720 120 K 10 ml Trace (Conc-1Ml/ Dose) 1 ml Potassium Phosphate 10 mmol In Amino Acid 5%-D15w+Lytes* E* 1,000 ml @ 60 mls/hr IV .BY DURATION [facility] Rx#: [id number] Potassium Chloride 20 meq 300 In Water For Injection 1 100ml.bag @ 50 mls/hr IVPB Q2H [facility] Rx#: [id number] metroNIDAZOLE-NS PMX 500 200 100 mg In Saline 1 100ml.bag @ 100 mls/hr IVPB Q8HR [facility] Rx#:[id number] Intake, IV Titration 101.167 Amount Diltiazem 125 mg In 101.167 Sodium Chloride 0.9% 100 ml @ 10 MG/HR 10 mls/hr IV .[id number] [facility] Rx#: [id number] Output: Urine 1725 1450 440 Other: Voiding Method Indwelling Catheter Indwelling Catheter Indwelling Catheter # Bowel Movements 1 2 1 ABP, PAP, CO, CI - Last Documented Arterial Blood Pressure 115/54 - Exam Physical Exam: Revealed 64-year-old female in no distress, presently on room air. Head: Atraumatic, normocephalic. HEENT:[Neck is supple.] [No neck masses.] [No thyromegaly.] [No JVD.] PERRLA, EOMI, no icterus. Moist mucous membranes. Chest: [Clear throughout, no crackles, no rhonchi, no wheezes.] Cardiac Exam: [Normal S1 and S2, no S3 gallop, no murmur.] Abdomen: [postsurgical changes and the incision is dry clean and intact over the mid of the abdominal wall. Bowel sounds are absent. The patient is wearing an abdominal bounded. No direct tenderness. No rebound tenderness. No guarding. No drains noted. Extremities: [No clubbing, no edema, no cyanosis.] Neurological Exam: [No focal neurologic deficit.] Psychiatric: Normal mood, affect and normal mental status examination. Skin: No rashes. - Labs CBC & Chem 7: 10/13/19 04:37 10/13/19 04:37 Labs: Abnormal Lab Results - Last 24 Hours (Table) 10/12/19 10/12/19 10/13/19 Range/Units 17:13 23:25 04:37 RBC (3.80-5.40) m/uL Hgb (11.4-16.0) gm/dL Hct (34.0-46.0) % Chloride 113 H (98-107) mmol/L Carbon Dioxide 18 L (22-30) mmol/L Creatinine 0.32 L (0.52-1.04) mg/dL Glucose 127 H (74-99) mg/dL POC Glucose (mg/dL) 156 H 105 H (75-99) mg/dL 10/13/19 10/13/19 10/13/19 Range/Units 04:37 05:30 11:58 RBC 2.98 L (3.80-5.40) m/uL Hgb 8.3 L (11.4-16.0) gm/dL Hct 26.2 L (34.0-46.0) % Chloride (98-107) mmol/L Carbon Dioxide (22-30) mmol/L Creatinine (0.52-1.04) mg/dL Glucose (74-99) mg/dL POC Glucose (mg/dL) 123 H 116 H (75-99) mg/dL Microbiology - Last 24 Hours (Table) 10/06/19 18:21 Blood Culture - Final Blood No Growth after 144 hours Assessment and Plan Assessment: Impression: Recurrent small bowel obstruction, status post exploratory laparotomy, lysis of adhesions, small bowel resection, repair of incisional hernia, postoperative day #6. History of multiple abdominal surgeries for bowel obstruction in the past. Mostly done in [facility]. History of breast cancer with previous bilateral vasectomy. And history of uterine cancer/hysterectomy. History of CVA. History of DVT. Hypertension. Generalized anxiety disorder. Degenerative joint disease. Recommendation: Continue incentive spirometry. Ambulate. Continue GI and DVT prophylaxis. Continue pain control. Surgery on the case to make final decision on feeding down the line. We'll continue to follow. Transfer out of the ICU to a regular medical floor Time with Patient: Less than 30
--- NOTE | 2019-10-13 13:27 | P.PN ---
Subjective Patient is a pleasant the 64-year-old female came in with bowel obstruction, patient underwent expiratory laparotomy with additional lysis bowel resection, repair of incisional hernia. Patient was subsequently admitted to ICU and patient the was started on antibiotics for colitis with cefepime and Flagyl. There is no evidence of heart failure because of which I'm not discontinuing diuretics at this time. Patient has sinus tachycardia today patient is an NG tube with minimal output. Patient has hyperactive bowel sounds atelectasis on the chest x-ray. 10/09/2019 Patient went into atrial fibrillation patient received Cardizem IV push followed by IV Cardizem but blood pressure is low patient was started on amiodarone will wean off Cardizem because of low blood pressure. Patient although feels okay bit tired. Patient is presently not on anti-correlation cardiology is following the patient 10/10/2019 patient is postoperative day 3 patient still has significant output from the NG tube patient is being started on TPN as per general surgery patient is sinus rhythm presently on Cardizem and amiodarone drip which is being weaned off patient is presently not on any anticoagulation . 10/11/2019 The patient is presently on TPN lactated Ringer's patient still has an NG tube in place remains on amiodarone drip and Cardizem drip. 10/12/2019 Patient was started on diet patient has waspassing gas. Patient is sinus rhythm today patient to NG tube is out at this time. Patient's IV Cardizem was discontinued IV amiodarone was discontinued patient is presently on metoprolol patient looks much better today. Patient remains on TPN 10/13/2019 Patient will transfer out of ICU patient is passing gas, postoperative day 6 patient is in and out of A. fib with rapid ventricular rate. Remains on TPN. With some vague abdominal discomfort Constitutional: Denied any fatigue denied any fever. Cardio vascular: denied any chest pain, palpitations Gastrointestinal denied any nausea vomiting Pulmonary: Denied any shortness of breath cough Neurologic denied any new focal deficits All inpatient medications were reviewed and appropriate changes in these medications as dictated in the interval history and assessment and plan. Objective - Vital Signs Vital signs: Vital Signs Temp 98.9 F 10/13/19 08:00 Pulse 110 H 10/13/19 09:00 Resp 20 10/13/19 09:00 BP 119/69 10/13/19 09:00 Pulse Ox 95 06/08/20 09:00 Intake & Output 10/12/19 10/13/19 10/13/19 18:59 06:59 18:59 Intake Total 1496.167 720 340 Output Total 1725 1450 440 Balance -228.833 -730 -100 Weight 72.1 kg 72.1 kg Intake: IV 1395 720 340 0.9 @ 20 20 Amiodarone 300 mg In 75 Dextrose 5% in Water 250 ml @ 0.5 MG/MIN 25 mls/hr IV .Q10H [facility] Rx#: [id number] Cefepime 2 gm In Sodium 200 100 Chloride 0.9% 100 ml @ 200 mls/hr IVPB Q8HR [facility] Rx#:[id number] Diltiazem 125 mg In 30 Sodium Chloride 0.9% 100 ml @ 10 MG/HR 10 mls/hr IV .[id number] [facility] Rx#: [id number] Lactated Ringers 1,000 ml 50 @ 50 mls/hr IV .Q20H [facility] Rx#:[id number] Mvi, Adult No.4 with Vit 540 720 120 K 10 ml Trace (Conc-1Ml/ Dose) 1 ml Potassium Phosphate 10 mmol In Amino Acid 5%-D15w+Lytes* E* 1,000 ml @ 60 mls/hr IV .BY DURATION [facility] Rx#: [id number] Potassium Chloride 20 meq 300 In Water For Injection 1 100ml.bag @ 50 mls/hr IVPB Q2H [facility] Rx#: [id number] metroNIDAZOLE-NS PMX 500 200 100 mg In Saline 1 100ml.bag @ 100 mls/hr IVPB Q8HR [facility] Rx#:[id number] Intake, IV Titration 101.167 Amount Diltiazem 125 mg In 101.167 Sodium Chloride 0.9% 100 ml @ 10 MG/HR 10 mls/hr IV .[id number] [facility] Rx#: [id number] Output: Urine 1725 1450 440 Other: Voiding Method Indwelling Catheter Indwelling Catheter Indwelling Catheter # Bowel Movements 1 2 1 ABP, PAP, CO, CI - Last Documented Arterial Blood Pressure 115/54 - Exam PHYSICAL EXAMINATION: GENERAL: The patient is alert and oriented x3, not in any acute distress. Well developed, well nourished. 2 L ofnasal cannula oxygen HEENT: Pupils are round and equally reacting to light. EOMI. No scleral icterus. No conjunctival pallor. Normocephalic, atraumatic. No pharyngeal erythema. No thyromegaly. CARDIOVASCULAR: S1 and S2 present. No murmurs, rubs, or gallops. sinus rhythm rate controlled PULMONARY: Chest is clear to auscultation, no wheezing or crackles. ABDOMEN: Normal bowel binder in place sluggish bowel sounds NG tube in place MUSCULOSKELETAL: No joint swelling or deformity. EXTREMITIES: No cyanosis, clubbing, or pedal edema. NEUROLOGICAL: Gross neurological examination did not reveal any focal deficits. SKIN: No rashes. - Labs CBC & Chem 7: 10/13/19 04:37 10/13/19 04:37 Labs: Abnormal Lab Results - Last 24 Hours (Table) 10/12/19 10/12/19 10/13/19 Range/Units 17:13 23:25 04:37 RBC (3.80-5.40) m/uL Hgb (11.4-16.0) gm/dL Hct (34.0-46.0) % Chloride 113 H (98-107) mmol/L Carbon Dioxide 18 L (22-30) mmol/L Creatinine 0.32 L (0.52-1.04) mg/dL Glucose 127 H (74-99) mg/dL POC Glucose (mg/dL) 156 H 105 H (75-99) mg/dL 10/13/19 10/13/19 10/13/19 Range/Units 04:37 05:30 11:58 RBC 2.98 L (3.80-5.40) m/uL Hgb 8.3 L (11.4-16.0) gm/dL Hct 26.2 L (34.0-46.0) % Chloride (98-107) mmol/L Carbon Dioxide (22-30) mmol/L Creatinine (0.52-1.04) mg/dL Glucose (74-99) mg/dL POC Glucose (mg/dL) 123 H 116 H (75-99) mg/dL Microbiology - Last 24 Hours (Table) 10/06/19 18:21 Blood Culture - Final Blood No Growth after 144 hours Assessment and Plan Plan: -recurrent small bowel obstruction status post exploratory laparotomy additional lysis, and small bowel resection incisional hernia repair and operative findings of colitis for which patient is an above-mentioned antibiotics. Patient on cefepime and metronidazole patient is off NG tube -Atrial fibrillation, converted to sinus rhythm patient was started on metoprolol oral.patient is on DVT prophylaxis dose of Lovenox -History of DVT in the past patient will be resumed on Lovenox for DVT prophylaxis -Coronary artery disease -Seizure disorder -Hypertension -Depression -Osteoarthritis for above-mentioned chronic medical problems I'll continue with the her appropriate home medications although patient is presently nothing by mouth
--- NOTE | 2019-10-13 15:40 | P.PN ---
Subjective Progress Note Date: 10/13/19 Principal diagnosis: Small bowel obstruction, small bowel resection The patient has been tolerating clear liquids. She has had some incisional pain. She's been roughly stable over the weekend. Objective - Vital Signs Vital signs: Vital Signs Temp 98.9 F 10/13/19 08:00 Pulse 110 H 10/13/19 09:00 Resp 20 10/13/19 09:00 BP 119/69 10/13/19 09:00 Pulse Ox 95 10/13/19 09:00 Intake & Output 10/12/19 10/13/19 10/13/19 18:59 06:59 18:59 Intake Total 1496.167 720 340 Output Total 1725 1450 865 Balance -228.833 -730 -525 Weight 72.1 kg 72.1 kg Intake: IV 1395 720 340 0.9 @ 20 20 Amiodarone 300 mg In 75 Dextrose 5% in Water 250 ml @ 0.5 MG/MIN 25 mls/hr IV .Q10H [facility] Rx#: [id number] Cefepime 2 gm In Sodium 200 100 Chloride 0.9% 100 ml @ 200 mls/hr IVPB Q8HR [facility] Rx#:[id number] Diltiazem 125 mg In 30 Sodium Chloride 0.9% 100 ml @ 10 MG/HR 10 mls/hr IV .[id number] [facility] Rx#: [id number] Lactated Ringers 1,000 ml 50 @ 50 mls/hr IV .Q20H [facility] Rx#:[id number] Mvi, Adult No.4 with Vit 540 720 120 K 10 ml Trace (Conc-1Ml/ Dose) 1 ml Potassium Phosphate 10 mmol In Amino Acid 5%-D15w+Lytes* E* 1,000 ml @ 60 mls/hr IV .BY DURATION [facility] Rx#: [id number] Potassium Chloride 20 meq 300 In Water For Injection 1 100ml.bag @ 50 mls/hr IVPB Q2H [facility] Rx#: [id number] metroNIDAZOLE-NS PMX 500 200 100 mg In Saline 1 100ml.bag @ 100 mls/hr IVPB Q8HR [facility] Rx#:[id number] Intake, IV Titration 101.167 Amount Diltiazem 125 mg In 101.167 Sodium Chloride 0.9% 100 ml @ 10 MG/HR 10 mls/hr IV .[id number] [facility] Rx#: [id number] Output: Urine 1725 1450 865 Other: Voiding Method Indwelling Catheter Indwelling Catheter Indwelling Catheter # Bowel Movements 1 2 1 ABP, PAP, CO, CI - Last Documented Arterial Blood Pressure 115/54 - Gastrointestinal Gastrointestinal Comment(s): Abdomen soft. Incision site clean dry intact. - Labs CBC & Chem 7: 10/13/19 04:37 10/13/19 04:37 Labs: Abnormal Lab Results - Last 24 Hours (Table) 10/12/19 10/12/19 10/13/19 Range/Units 17:13 23:25 04:37 RBC (3.80-5.40) m/uL Hgb (11.4-16.0) gm/dL Hct (34.0-46.0) % Chloride 113 H (98-107) mmol/L Carbon Dioxide 18 L (22-30) mmol/L Creatinine 0.32 L (0.52-1.04) mg/dL Glucose 127 H (74-99) mg/dL POC Glucose (mg/dL) 156 H 105 H (75-99) mg/dL 10/13/19 10/13/19 10/13/19 Range/Units 04:37 05:30 11:58 RBC 2.98 L (3.80-5.40) m/uL Hgb 8.3 L (11.4-16.0) gm/dL Hct 26.2 L (34.0-46.0) % Chloride (98-107) mmol/L Carbon Dioxide (22-30) mmol/L Creatinine (0.52-1.04) mg/dL Glucose (74-99) mg/dL POC Glucose (mg/dL) 123 H 116 H (75-99) mg/dL Microbiology - Last 24 Hours (Table) 10/06/19 18:21 Blood Culture - Final Blood No Growth after 144 hours Assessment and Plan Assessment: Status post small bowel resection for small bowel obstruction. Patient has had significant diarrhea due to her short and small bowel. Patient was placed on full liquids. We will add some Lomotil to slow down her bowel transit time
[2019-10-13] MEDS: DIPHENOX-ATROP 2.5-0.025 MG 1 EACH TAB PO PRN (17:28)
[2019-10-14] MEDS: HYDROmorphone 1 MG/ML 1 ML SYRINGE IVP PRN ×3 (00:16→06:24)
[2019-10-14] MEDS: LORazepam 2 MG/ML INJ IV PRN ×2 (00:20→04:43)
[2019-10-14] MEDS: DIPHENOX-ATROP 2.5-0.025 MG 1 EACH TAB PO PRN ×3 (00:28→18:28)
[2019-10-14 05:03] LABS: Basophils % (A) 0 %; Eosinophils # (A) 0.3 k/uL (0-0.7); Eosinophils % (A) 3 %; HCT 27.6 % (34.0-46.0); HGB 8.8 gm/dL (11.4-16.0); Hypochromasia Moderate; Lymphocytes # (A) 1.1 k/uL (1.0-4.8); Lymphocytes % (A) 10 %; MCH 27.3 pg (25.0-35.0); MCHC 31.8 g/dL (31.0-37.0); MCV 85.9 fL (80.0-100.0); Mean Platelet Volume 8.2; Monocytes # (A) 0.8 k/uL (0-1.0); Monocytes % (A) 7 %; Neutrophils # (A) 8.9 k/uL (1.3-7.7); Neutrophils % (A) 79 %; Platelet Count 234 k/uL (150-450); Poikilocytosis Slight; RBC 3.21 m/uL (3.80-5.40); RDW 15.4 % (11.5-15.5); WBC 11.2 k/uL (3.8-10.6)
[2019-10-14 05:05] LABS: ALT 11 U/L (4-34); AST 20 U/L (14-36); African American GFR (CKD) >90 (>60 ml/min/1.73 sqM); Albumin 2.6 g/dL (3.5-5.0); Alkaline Phosphatase 82 U/L (38-126); Anion Gap 8 mmol/L; Blood Urea Nitrogen 8 mg/dL (7-17); Calcium 8.4 mg/dL (8.4-10.2); Carbon Dioxide 19 mmol/L (22-30); Chloride 116 mmol/L (98-107); Glucose 112 mg/dL (74-99); Non-African American GFR(CKD) >90 (>60 ml/min/1.73 sqM); Potassium 3.6 mmol/L (3.5-5.1); Sodium 143 mmol/L (137-145); Total Bilirubin 0.3 mg/dL (0.2-1.3); Total Protein 5.3 g/dL (6.3-8.2)
[2019-10-14] MEDS: HYDROmorphone 0.5 MG/0.5 ML SYRINGE IVP PRN ×4 (08:37→20:20)
[2019-10-14] MEDS: ENOXAPARIN 40 MG/0.4 ML SYRINGE SQ SCH (08:37)
[2019-10-14] MEDS: PANTOPRAZOLE 40 MG/10 ML VIAL IV SCH (08:38)
[2019-10-14] MEDS: METOPROLOL SUCCINATE (ER) 100 MG TAB.ER.24H PO SCH (08:38)
[2019-10-14] MEDS: CEFEPIME 2 GM in SODIUM CHLORIDE 0.9% 100 ML IVPB SCH ×3 (08:39→23:53)
[2019-10-14] MEDS: LORazepam 0.5 MG TAB PO PRN ×3 (10:26→22:28)
--- NOTE | 2019-10-14 12:17 | P.PN ---
Subjective Progress Note Date: 10/14/19 Principal diagnosis: Small bowel obstruction, status post exploratory laparotomy and lysis of adhesions, small bowel resection and repair of incisional hernia 64-year-old female patient was admitted for abdominal pain and bloating. The patient is known to have previous history of partial bowel resection and she has had multiple previous bowel obstructions. Patient reported that she was having significant amount of pain in her left upper and lower quadrants. NG tube was inserted in the emergency department as the patient was given a CAT scan of the abdomen and pelvis that showed extensive surgical changes involving the bowel loops in the mid in the lower abdomen into the upper pelvis with focal fluid and fecal dilatation. Surrounding inflammatory changes noted. Findings were consistent with partial bowel obstruction and the possibility of closed loop obstruction or internal hernia cannot be completely excluded. There was no significant proximal dilatation and the findings were more localized. There was also fairly moderate extrahepatic and mild intrahepatic biliary dilatation noted. Also, there was a small to moderate-sized hiatal hernia. The stomach w as poorly distended. No suspicious dilatation of the duodenal sweep. There was also scattered peripheral colonic diverticuli noted. The white cell count was 15.3. The liver function tests were within normal limits. Amylase lipase within normal limits. The patient was taken to the operating room today by Dr. Koehler and the patient underwent expiratory laparotomy. The patient was found to have frozen abdomen with extensive adhesions. The patient underwent lysis of adhesions and small bowel resection 2 and repair of an incisional hernia was also done. Postop, the patient was extubated in the operating room and the patient was brought into the intensive care unit for further monitoring. The patient is on normal saline at the rate of 60 mL an hour and she is also receiving lactated Ringer at the rate of 125 mL an hour. She is on IV cefepime as an empiric antibiotic coverage in combination with Flagyl. The patient is on Lovenox 40 prophylaxis 40 mg subcu every 24 hours. She is also on Dilaudid for pain control. She is awake and alert and her pain is under adequate control. She is wearing an abdominal bounded. Surgical wound site is dry clean and intact. No drains noted. Reevaluated today on 10/13/19, patient is postoperative day #6. Patient is doing well, relatively asymptomatic, remains on TPN for nutritional support, she has some vague abdominal discomfort. But overall she is feeling much better. No nausea, no vomiting. Remains nothing by mouth. Patient denies any shortness of breath, no cough no wheezing, no chest pain. Hemoglobin is 8.3 WBC count is 7 On 10/14/2019 patient seen in follow-up on general medical floor. She still having some diarrhea, stool for C. diff was negative, still having abdominal pain, and patient is receiving IV Dilaudid for pain control. She is achieving 1500 on her incentive spirometer, no complaints of shortness of breath, patient is on room air, her pulse ox is 95%, no fever or chills. Today's labs have been reviewed showing blood blood cell count of 11.2, hemoglobin of 8.8, sodium is 143, potassium is 3.6, chloride is 116, CO2 is 19, B1 is 8, creatinine 0.36. Patient has been tolerating clear liquids Objective - Vital Signs Vital signs: Vital Signs Temp 98.7 F 10/14/19 07:00 Pulse 95 10/14/19 08:38 Resp 16 10/14/19 08:38 BP 107/70 10/14/19 07:00 Pulse Ox 95 10/14/19 07:00 Intake & Output 10/13/19 10/14/19 10/14/19 18:59 06:59 18:59 Intake Total 340 480 Output Total 865 560 400 Balance -525 -80 -400 Weight 72.1 kg Intake: IV 340 0.9 @ 20 20 Cefepime 2 gm In Sodium 100 Chloride 0.9% 100 ml @ 200 mls/hr IVPB Q8HR [facility] Rx#:[id number] Mvi, Adult No.4 with Vit 120 K 10 ml Trace (Conc-1Ml/ Dose) 1 ml Potassium Phosphate 10 mmol In Amino Acid 5%-D15w+Lytes* E* 1,000 ml @ 60 mls/hr IV .BY DURATION [facility] Rx#: [id number] metroNIDAZOLE-NS PMX 500 100 mg In Saline 1 100ml.bag @ 100 mls/hr IVPB Q8HR [facility] Rx#:[id number] Oral 480 Output: Urine 865 560 400 Uretheral (Lehman) 300 Other: Voiding Method Indwelling Catheter Indwelling Catheter # Voids 1 # Bowel Movements 1 1 2 ABP, PAP, CO, CI - Last Documented Arterial Blood Pressure 115/54 - Exam GENERAL EXAM: Alert, very pleasant, 64-year-old white female, on room air, with a pulse ox of 95% comfortable in no apparent distress. HEAD: Normocephalic/atraumatic. EYES: Normal reaction of pupils, equal size. Conjunctiva pink, sclera white. NOSE: Clear with pink turbinates. THROAT: No erythema or exudates. NECK: No masses, no JVD, no thyroid enlargement, no adenopathy. CHEST: No chest wall deformity. Symmetrical expansion. LUNGS: Equal air entry with no crackles, wheeze, rhonchi or dullness. CVS: Regular rate and rhythm, normal S1 and S2, no gallops, no murmurs, no rubs ABDOMEN: Soft, tender. No hepatosplenomegaly, normal bowel sounds, no guarding or rigidity. Midabdominal incision is clean dry and intact, she has abdominal binder in place EXTREMITIES: No clubbing, no edema, no cyanosis, 2+ pulses and upper and lower extremities. MUSCULOSKELETAL: Muscle strength and tone normal. SPINE: No scoliosis or deformity SKIN: No rashes CENTRAL NERVOUS SYSTEM: Alert and oriented -3. No focal deficits, tone is normal in all 4 extremities. PSYCHIATRIC: Alert and oriented -3. Appropriate affect. Intact judgment and insight. - Labs CBC & Chem 7: 10/14/19 04:23 10/14/19 04:23 Labs: Abnormal Lab Results - Last 24 Hours (Table) 10/14/19 10/14/19 Range/Units 04:23 04:23 WBC 11.2 H (3.8-10.6) k/uL RBC 3.21 L (3.80-5.40) m/uL Hgb 8.8 L (11.4-16.0) gm/dL Hct 27.6 L (34.0-46.0) % Neutrophils # 8.9 H (1.3-7.7) k/uL Chloride 116 H (98-107) mmol/L Carbon Dioxide 19 L (22-30) mmol/L Creatinine 0.36 L (0.52-1.04) mg/dL Glucose 112 H (74-99) mg/dL Total Protein 5.3 L (6.3-8.2) g/dL Albumin 2.6 L (3.5-5.0) g/dL Assessment and Plan Plan: Assessment: Recurrent small bowel obstruction, status post exploratory laparotomy, lysis of adhesions, small bowel resection, repair of incisional hernia, postoperative day #7. History of multiple abdominal surgeries for bowel obstruction in the past. Mostly done in [facility]. History of breast cancer with previous bilateral vasectomy. And history of uterine cancer/hysterectomy. History of CVA. History of DVT. Hypertension. Generalized anxiety disorder. Degenerative joint disease. Plan: Continue encouraging deep breathing and coughing, increase activity as tolerated, patient is tolerating oral diet, no nausea or vomiting, still having some diarrhea but C. diff was negative. Surgical services are following. Maintain pain control. Vital signs have been stable. Stable from pulmo nary/critical care perspective, we'll follow on as-needed basis I performed a history & physical examination of the patient and discussed their management with my nurse practitioner, Regla Bronson. I reviewed the nurse practitioner's note and agree with the documented findings and plan of care. Lung sounds are positive for diminished breath sounds. The findings and the impression was discussed with the patient. I attest to the documentation by the nurse practitioner. Time with Patient: Less than 30
[2019-10-14] MEDS: HYDROcodone/APAP 5-325MG 1 EACH TAB PO PRN ×3 (14:23→23:52)
--- NOTE | 2019-10-14 14:51 | P.PN ---
Subjective Patient is a pleasant the 64-year-old female came in with bowel obstruction, patient underwent expiratory laparotomy with additional lysis bowel resection, repair of incisional hernia. Patient was subsequently admitted to ICU and patient the was started on antibiotics for colitis with cefepime and Flagyl. There is no evidence of heart failure because of which I'm not discontinuing diuretics at this time. Patient has sinus tachycardia today patient is an NG tube with minimal output. Patient has hyperactive bowel sounds atelectasis on the chest x-ray. 10/09/2019 Patient went into atrial fibrillation patient received Cardizem IV push followed by IV Cardizem but blood pressure is low patient was started on amiodarone will wean off Cardizem because of low blood pressure. Patient although feels okay bit tired. Patient is presently not on anti-correlation cardiology is following the patient 10/10/2019 patient is postoperative day 3 patient still has significant output from the NG tube patient is being started on TPN as per general surgery patient is sinus rhythm presently on Cardizem and amiodarone drip which is being weaned off patient is presently not on any anticoagulation . 10/11/2019 The patient is presently on TPN lactated Ringer's patient still has an NG tube in place remains on amiodarone drip and Cardizem drip. 10/12/2019 Patient was started on diet patient has waspassing gas. Patient is sinus rhythm today patient to NG tube is out at this time. Patient's IV Cardizem was discontinued IV amiodarone was discontinued patient is presently on metoprolol patient looks much better today. Patient remains on TPN 10/13/2019 Patient will transfer out of ICU patient is passing gas, postoperative day 6 patient is in and out of A. fib with rapid ventricular rate. Remains on TPN. With some vague abdominal discomfort 10/14/2019 patient had multiple episodes of diarrhea because of 3 obtain C. diff C. diff is negative. Patient at the only diffuse because of that left because of which the patient is having diarrhea and patient is on Lomotil will add Questran. We'll continue with IV fluids. Constitutional: Denied any fatigue denied any fever. Cardio vascular: denied any chest pain, palpitations Gastrointestinal denied any nausea vomiting Pulmonary: Denied any shortness of breath cough Neurologic denied any new focal deficits All inpatient medications were reviewed and appropriate changes in these medica tions as dictated in the interval history and assessment and plan. Objective - Vital Signs Vital signs: Vital Signs Temp 98.7 F 10/14/19 07:00 Pulse 95 10/14/19 08:38 Resp 16 10/14/19 08:38 BP 107/70 10/14/19 07:00 Pulse Ox 95 10/14/19 07:00 Intake & Output 10/13/19 10/14/19 10/14/19 18:59 06:59 18:59 Intake Total 340 480 480 Output Total 865 560 400 Balance -525 -80 80 Weight 72.1 kg Intake: IV 340 0.9 @ 20 20 Cefepime 2 gm In Sodium 100 Chloride 0.9% 100 ml @ 200 mls/hr IVPB Q8HR [facility] Rx#:[id number] Mvi, Adult No.4 with Vit 120 K 10 ml Trace (Conc-1Ml/ Dose) 1 ml Potassium Phosphate 10 mmol In Amino Acid 5%-D15w+Lytes* E* 1,000 ml @ 60 mls/hr IV .BY DURATION [facility] Rx#: [id number] metroNIDAZOLE-NS PMX 500 100 mg In Saline 1 100ml.bag @ 100 mls/hr IVPB Q8HR [facility] Rx#:[id number] Oral 480 480 Output: Urine 865 560 400 Uretheral (Lehman) 300 Other: Voiding Method Indwelling Catheter Indwelling Catheter # Voids 1 # Bowel Movements 1 1 2 ABP, PAP, CO, CI - Last Documented Arterial Blood Pressure 115/54 - Exam PHYSICAL EXAMINATION: GENERAL: The patient is alert and oriented x3, not in any acute distress. Well developed, well nourished. 2 L ofnasal cannula oxygen HEENT: Pupils are round and equally reacting to light. EOMI. No scleral icterus. No conjunctival pallor. Normocephalic, atraumatic. No pharyngeal erythema. No thyromegaly. CARDIOVASCULAR: S1 and S2 present. No murmurs, rubs, or gallops. sinus rhythm rate controlled PULMONARY: Chest is clear to auscultation, no wheezing or crackles. ABDOMEN: Normal bowel binder in place sluggish bowel sounds NG tube in place MUSCULOSKELETAL: No joint swelling or deformity. EXTREMITIES: No cyanosis, clubbing, or pedal edema. NEUROLOGICAL: Gross neurological examination did not reveal any focal deficits. SKIN: No rashes. - Labs CBC & Chem 7: 10/14/19 04:23 10/14/19 04:23 Labs: Abnormal Lab Results - Last 24 Hours (Table) 10/14/19 10/14/19 Range/Units 04:23 04:23 WBC 11.2 H (3.8-10.6) k/uL RBC 3.21 L (3.80-5.40) m/uL Hgb 8.8 L (11.4-16.0) gm/dL Hct 27.6 L (34.0-46.0) % Neutrophils # 8.9 H (1.3-7.7) k/uL Chloride 116 H (98-107) mmol/L Carbon Dioxide 19 L (22-30) mmol/L Creatinine 0.36 L (0.52-1.04) mg/dL Glucose 112 H (74-99) mg/dL Total Protein 5.3 L (6.3-8.2) g/dL Albumin 2.6 L (3.5-5.0) g/dL Assessment and Plan Plan: -recurrent small bowel obstruction status post exploratory laparotomy additional lysis, and small bowel resection incisional hernia repair and operative findings of colitis for which patient is an above-mentioned antibiotics. Patient on cefepime and metronidazole patient is off NG tube -diarrhea rule out the last from April colitis patient has increasing leukocytosis as well. Patient to diarrhea secondary to small bowel resection most of her bowel was resected. -Atrial fibrillation, converted to sinus rhythm patient was started on metoprolol oral.patient is on DVT prophylaxis dose of Lovenox -History of DVT in the past patient will be resumed on Lovenox for DVT prophylaxis -Coronary artery disease -Seizure disorder -Hypertension -Depression -Osteoarthritis for above-mentioned chronic medical problems I'll continue with the her appropriate home medications although patient is presently nothing by mouth
[2019-10-14] MEDS: CHOLESTYRAMINE (WITH SUGAR) 4 GM PACKET PO SCH ×2 (15:03→18:29)
--- NOTE | 2019-10-14 15:52 | CDI ---
Documentation Clarification Form Date: 10/14/2019 02:51:00 PM From: Belinda Pacheco RN, CCDS Admit Date: 10/06/2019 10:54:00 AM Patient Name: Cynthia Duke Visit Number: [id number] Discharge Date: ATTENTION: The Clinical Documentation Specialists (CDI) and [facility] Coding Staff appreciate your assistance in clarifying documentation. Please respond to the clarification below the line at the bottom and electronically sign. The CDI & [facility] Coding staff will review the response and follow-up if needed. Please note: Queries are made part of the Legal Health Record. If you have any questions, please contact the author of this message via ITS. Dr. Pio Duron 10/08 Paroxysmal atrial fibrillation is in the progress notes. Request clarification and clinical significance of the atrial fibrillation Patients Admitting Diagnosis: 10/05 Small Bowel Obstruction Post-Operative Diagnosis: same Procedure performed: Exploratory laparotomy extensive lysis of adhesions, small bowel resection x2, and incisional hernia. History/Risk Factors: CAD, COPD, Hypertension, Heart failure, DVT, NM, Irregular heart rate, possible atrial fibrillation many years back. Seizures, Multiple bowel obstructions. Clinical Indicators: 64-year-old female who present with small bowel obstruction and status post surgery. On 10/07 A.fib with RVR is documented. The past medical history has history of irregular heart rate, possible atria fibrillation many years back. Treatment: ICU/Telemetry monitoring Lactated Ringer @ 50 mls hr Cefepime 2 gm IV q8 hrs Cardizem IV @ 10 mg hr (weaned off because of low blood pressure) Amiodarone IV 300 mg in 250 mls @ 0.5 mg/min (25 mg hr TPN 10/07 ECHO: Resting tachycardia (HR>100 bpm) Overall left ventricular systolic function is normal with an EF between 60-65 % 10/07 Pulmonary: New onset atrial fibrillation with rapid ventricular response. Did not respond well to Cardizem. Amiodarone protocol In order to accurately reflect this patients severity of illness, .please further clarify Atrial Fibrillation: -is a complication of surgical procedure -is an expected outcome of the surgical procedure (specify) -is related to co-morbid condition(s) of (specify) -Other please specify -Unable to determine (Last Revision: June 2019) 05/22/20 MTDD
--- NOTE | 2019-10-14 18:21 | P.PN ---
Progress Note - Text Progress Note Date: 10/14/19 The patient is doing better. She is able in the hallway. She is still having diarrhea. On exam her vital signs are stable. Abdomen soft. Incision site clean and intact. Patient will have her diet advanced to regular diet. She'll also be discharged in the next 24-48 hours.
[2019-10-15] MEDS: HYDROmorphone 0.5 MG/0.5 ML SYRINGE IVP PRN ×4 (01:29→14:03)
[2019-10-15] MEDS: HYDROcodone/APAP 5-325MG 1 EACH TAB PO PRN ×5 (04:07→20:51)
[2019-10-15] MEDS: LORazepam 0.5 MG TAB PO PRN ×4 (04:58→22:05)
[2019-10-15] MEDS: CEFEPIME 2 GM in SODIUM CHLORIDE 0.9% 100 ML IVPB SCH ×2 (08:24→16:14)
[2019-10-15] MEDS: METOPROLOL SUCCINATE (ER) 100 MG TAB.ER.24H PO SCH (08:24)
[2019-10-15] MEDS: ENOXAPARIN 40 MG/0.4 ML SYRINGE SQ SCH (08:24)
[2019-10-15] MEDS: PANTOPRAZOLE 40 MG/10 ML VIAL IV SCH (08:24)
[2019-10-15] MEDS: CHOLESTYRAMINE (WITH SUGAR) 4 GM PACKET PO SCH ×3 (08:25→17:57)
--- NOTE | 2019-10-15 11:27 | CDI ---
Documentation Clarification Form Date: 10/15/2019 11:23:00 AM From: Belinda Pacheco RN, CCDS Admit Date: 10/06/2019 10:54:00 AM Patient Name: Cynthia Duke Visit Number: [id number] Discharge Date: ATTENTION: The Clinical Documentation Specialists (CDI) and [facility] Coding Staff appreciate your assistance in clarifying documentation. Please respond to the clarification below the line at the bottom and electronically sign. The CDI & [facility] Coding staff will review the response and follow-up if needed. Please note: Queries are made part of the Legal Health Record. If you have any questions, please contact the author of this message via ITS. Dr. Sonia Mcgrath 10/05 admission labs: HGB 15.5, HCT 46.9, BUN 22, CR 0.66. On 10/06 patient had a small bowel resection. Daily CBC are show abnormal lab values and clinical clarification is requested. History/Risk Factors: Small bowel obstruction with bowel resection 10/07/19, hypertension Atrial Fibrillation, Colitis, Heart failure Clinical indicators: 64-year old female present to ED on 10/05 with abdominal pain. She was ruled in for bowel obstruction and taken to surgery on 10/06 for expiratory laparotomy with additional lysis of adhesions, bowel resection, and repair of incisional hernia. Postoperative day 3 she was having significant output for the NGT, per progress notes. Her CBC continue to be abnormal and request clinical clarification of the below lab finds. CBC: 10/05 HGB15.5 HCT 46.9 10/06 HGB 11.5, HCT 37.5 10/07 HGB 9.9 HCT 31.3 10/08 HGB 8.1 HCT 24.8 10/09 HGB 7.7 HCT 24.6 10/13 HGB 8.8 HCT 27.6 Treatment: Monitor CBC, BUN,CR, Lytes daily 10/05-10/13 Monitor I/O NGT LIS (now DC) IV TPN 10/08-10/12 Supplement per orders 60 mls/hr Clinical significance of diagnostic testing and treatment CANNOT be assumed or coded without physician documentation of significance if any. Please clarify what abnormal laboratory signifies: Acute blood loss anemia (specify expected or other) Disease process, please specify Unable to determine Other, please specify (Last Revision: February 2017) Acute blood loss anemia expected and from surgery MTDD
[2019-10-15 15:29] LABS: HGB 8.4 gm/dL (11.4-16.0); Hypochromasia Marked; MCH 26.5 pg (25.0-35.0); MCV 88.5 fL (80.0-100.0); Mean Platelet Volume 9.2; Platelet Count 292 k/uL (150-450); RBC 3.16 m/uL (3.80-5.40); RDW 15.7 % (11.5-15.5); WBC 9.7 k/uL (3.8-10.6)
[2019-10-15 15:36] LABS: African American GFR (CKD) >90 (>60 ml/min/1.73 sqM); Anion Gap 8 mmol/L; Blood Urea Nitrogen 5 mg/dL (7-17); Calcium 8.5 mg/dL (8.4-10.2); Carbon Dioxide 18 mmol/L (22-30); Chloride 112 mmol/L (98-107); Glucose 90 mg/dL (74-99); Non-African American GFR(CKD) >90 (>60 ml/min/1.73 sqM); Potassium 3.3 mmol/L (3.5-5.1); Sodium 138 mmol/L (137-145)
--- NOTE | 2019-10-15 15:39 | P.PN ---
Subjective Patient is a pleasant the 64-year-old female came in with bowel obstruction, patient underwent expiratory laparotomy with additional lysis bowel resection, repair of incisional hernia. Patient was subsequently admitted to ICU and patient the was started on antibiotics for colitis with cefepime and Flagyl. There is no evidence of heart failure because of which I'm not discontinuing diuretics at this time. Patient has sinus tachycardia today patient is an NG tube with minimal output. Patient has hyperactive bowel sounds atelectasis on the chest x-ray. 10/09/2019 Patient went into atrial fibrillation patient received Cardizem IV push followed by IV Cardizem but blood pressure is low patient was started on amiodarone will wean off Cardizem because of low blood pressure. Patient although feels okay bit tired. Patient is presently not on anti-correlation cardiology is following the patient 10/10/2019 patient is postoperative day 3 patient still has significant output from the NG tube patient is being started on TPN as per general surgery patient is sinus rhythm presently on Cardizem and amiodarone drip which is being weaned off patient is presently not on any anticoagulation . 10/11/2019 The patient is presently on TPN lactated Ringer's patient still has an NG tube in place remains on amiodarone drip and Cardizem drip. 10/12/2019 Patient was started on diet patient has waspassing gas. Patient is sinus rhythm today patient to NG tube is out at this time. Patient's IV Cardizem was discontinued IV amiodarone was discontinued patient is presently on metoprolol patient looks much better today. Patient remains on TPN 10/13/2019 Patient will transfer out of ICU patient is passing gas, postoperative day 6 patient is in and out of A. fib with rapid ventricular rate. Remains on TPN. With some vague abdominal discomfort 10/14/2019 patient had multiple episodes of diarrhea because of 3 obtain C. diff C. diff is negative. Patient at the only diffuse because of that left because of which the patient is having diarrhea and patient is on Lomotil will add Questran. We'll continue with IV fluids. 10/15/2019 No overnight events patient diarrhea is better. Constitutional: Denied any fatigue denied any fever. Cardio vascular: denied any chest pain, palpitations Gastrointestinal denied any nausea vomiting Pulmonary: Denied any shortness of breath cough Neurologic denied any new focal deficits All inpatient medications were reviewed and appropriate changes in these medications as dictated in the interval history and assessment and plan. Objective - Vital Signs Vital signs: Vital Signs Temp 98.6 F 10/15/19 11:31 Pulse 86 10/15/19 11:31 Resp 20 10/15/19 11:31 BP 119/75 10/15/19 11:31 Pulse Ox 97 10/15/19 11:31 Intake & Output 10/14/19 10/15/19 10/15/19 18:59 06:59 18:59 Intake Total 880 100 Output Total 500 Balance 380 100 Intake: IV 100 Cefepime 2 gm In Sodium 100 Chloride 0.9% 100 ml @ 200 mls/hr IVPB Q8HR [facility] Rx#:[id number] Intake, IV Titration 100 Amount Cefepime 2 gm In Sodium 100 Chloride 0.9% 100 ml @ 200 mls/hr IVPB Q8HR [facility]AN Rx#:[id number] Oral 680 100 Output: Urine 500 Uretheral (Lehman) 300 Other: Voiding Method Indwelling Catheter Indwelling Catheter # Voids 1 1 1 # Bowel Movements 2 1 ABP, PAP, CO, CI - Last Documented Arterial Blood Pressure 115/54 - Exam PHYSICAL EXAMINATION: GENERAL: The patient is alert and oriented x3, not in any acute distress. Well developed, well nourished. 2 L ofnasal cannula oxygen HEENT: Pupils are round and equally reacting to light. EOMI. No scleral icterus. No conjunctival pallor. Normocephalic, atraumatic. No pharyngeal erythema. No thyromegaly. CARDIOVASCULAR: S1 and S2 present. No murmurs, rubs, or gallops. sinus rhythm rate controlled PULMONARY: Chest is clear to auscultation, no wheezing or crackles. ABDOMEN: Normal bowel binder in place sluggish bowel sounds NG tube in place MUSCULOSKELETAL: No joint swelling or deformity. EXTREMITIES: No cyanosis, clubbing, or pedal edema. NEUROLOGICAL: Gross neurological examination did not reveal any focal deficits. SKIN: No rashes. - Labs CBC & Chem 7: 10/15/19 07:38 10/14/19 04:23 Labs: Abnormal Lab Results - Last 24 Hours (Table) 10/15/19 Range/Units 07:38 RBC 3.16 L (3.80-5.40) m/uL Hgb 8.4 L (11.4-16.0) gm/dL Hct 28.0 L (34.0-46.0) % MCHC 30.0 L (31.0-37.0) g/dL RDW 15.7 H (11.5-15.5) % Assessment and Plan Plan: -recurrent small bowel obstruction status post exploratory laparotomy additional lysis, and small bowel resection incisional hernia repair and operative findings of colitis for which patient is an above-mentioned antibiotics. Patient on cefepime and metronidazole patient is off NG tube -diarrhea rule out the last from April colitis patient has increasing leukocytosis as well. Patient to diarrhea secondary to small bowel resection most of her bowel was resected. -Atrial fibrillation, converted to sinus rhythm patient was started on metoprolol oral.patient is on DVT prophylaxis dose of Lovenox -History of DVT in the past patient will be resumed on Lovenox for DVT prophylaxis -Coronary artery disease -Seizure disorder -Hypertension -Depression -Osteoarthritis for above-mentioned chronic medical problems I'll continue with the her appropriate home medications although patient is presently nothing by mouth
--- NOTE | 2019-10-15 15:52 | P.PN ---
Progress Note - Text Progress Note Date: 10/15/19 The patient is improving. She is tolerating diet. Her pain is slightly improved. On exam her vital signs are stable. Abdomen soft. Incision site is clean dry and intact. Status post small bowel resection for small bowel obstruction. Weight is a discharge home tomorrow.
[2019-10-16] MEDS ORDERED: LORazepam 0.5 MG TAB ONE (00:51)
[2019-10-16] MEDS ORDERED: HYDROcodone/APAP 5-325MG 1 EACH TAB ONE (00:51)
[2019-10-16] MEDS: CEFEPIME 2 GM in SODIUM CHLORIDE 0.9% 100 ML IVPB SCH ×2 (04:46→08:56)
[2019-10-16] MEDS: HYDROcodone/APAP 5-325MG 1 EACH TAB PO PRN ×3 (04:51→13:05)
[2019-10-16 06:27] VITALS: RESP 16
[2019-10-16] MEDS: LORazepam 0.5 MG TAB PO PRN ×2 (07:45→11:54)
[2019-10-16] MEDS: ONDANSETRON 4 MG/2 ML VIAL IVP PRN (08:13)
[2019-10-16] MEDS ORDERED: POTASSIUM CHLORIDE ER 20 MEQ TAB.ER PO STA (08:48)
--- NOTE | 2019-10-16 08:51 | P.DS ---
Providers Date of admission: 10/06/19 10:54 Expected date of discharge: 10/16/19 Attending physician: Giovani Artis Consults: 10/06/19 14:20 Consult Physician Routine Consulting Provider: Ciera Solitario Consult Reason/Comments: medical management Do you want consulting provider notified?: Yes 10/06/19 17:26 Consult Physician Routine Consulting Provider: Mckay Fox Consult Reason/Comments: chf Do you want consulting provider notified?: Yes 10/07/19 07:45 Consult Physician Stat Consulting Provider: [facility] Consult Reason/Comments: surgical clearance Do you want consulting provider notified?: Yes 10/07/19 13:03 Consult Physician Routine Consulting Provider: Ann Marie Mcginnis Consult Reason/Comments: Medical management Do you want consulting provider notified?: Yes Primary care physician: Bia May [facility] Course: This a 64-year-old female who was admitted to hospital with small bowel obstruction related to closed loop obstruction. Patient underwent exposure laparotomy lysis of adhesions and extensive small bowel resection. Patient had a complicated course in the ICU. Please see hospital chart for details. Procedures: Exploratory laparotomy with lysis of stents of adhesions and small bowel resection Patient Condition at Discharge: Fair Plan - Discharge Summary Discharge Rx Participant: Yes New Discharge Prescriptions: New Docusate [Colace] 100 mg PO BID #20 capsule HYDROcodone/APAP 5-325MG [Parlin 5-325] 1 tab PO Q6HR PRN #10 tab PRN Reason: Pain No Action Potassium Chloride [K-Tab ER] 40 meq PO DAILY Pantoprazole Sodium [Protonix] 80 mg PO DAILY Metoprolol Succinate (ER) [Toprol Xl] 100 mg PO DAILY Bumetanide [BUMEX] 2 mg PO DAILY Lisinopril [Prinivil] 10 mg PO DAILY Furosemide [Lasix] 80 mg PO DAILY traMADol HCL 100 mg PO Q6H PRN PRN Reason: Pain Docusate [Colace] 100 mg PO DAILY Naratriptan HCl 2.5 mg PO DIRECTED PRN PRN Reason: Migraine Headache Meloxicam 15 mg PO DAILY Lidocaine 5% Oint [Xylocaine 5% Oint] 1 applic TOPICAL DAILY PRN PRN Reason: Pain Ibuprofen [Motrin] 600 mg PO TID-W/MEALS PRN PRN Reason: Pain Discharge Medication List Bumetanide [BUMEX] 2 mg PO DAILY 08/01/18 [History] Furosemide [Lasix] 80 mg PO DAILY 08/01/18 [History] Lisinopril [Prinivil] 10 mg PO DAILY 08/01/18 [History] Metoprolol Succinate (ER) [Toprol Xl] 100 mg PO DAILY 08/01/18 [History] Pantoprazole Sodium [Protonix] 80 mg PO DAILY 08/01/18 [History] Potassium Chloride [K-Tab ER] 40 meq PO DAILY 08/01/18 [History] Docusate [Colace] 100 mg PO DAILY 10/06/19 [History] Ibuprofen [Motrin] 600 mg PO TID-W/MEALS PRN 10/06/19 [History] Lidocaine 5% Oint [Xylocaine 5% Oint] 1 applic TOPICAL DAILY PRN 10/06/19 [History] Meloxicam 15 mg PO DAILY 10/06/19 [History] Naratriptan HCl 2.5 mg PO DIRECTED PRN 10/06/19 [History] traMADol HCL 100 mg PO Q6H PRN 10/06/19 [History] Docusate [Colace] 100 mg PO BID #20 capsule 10/16/19 [Rx] HYDROcodone/APAP 5-325MG [Parlin 5-325] 1 tab PO Q6HR PRN #10 tab 10/16/19 [Rx] Follow up Appointment(s)/Referral(s): Bia May MD [Primary Care Provider] - 1-2 days [facility] [NON-STAFF] - 1-2 Days [facility], [NON-STAFF] - 1-2 Days Giovani Artis MD [STAFF PHYSICIAN] - 1 Week
[2019-10-16] MEDS: PANTOPRAZOLE 40 MG/10 ML VIAL IV SCH (08:57)
[2019-10-16 08:58] VITALS: TEMP 98.3
[2019-10-16] MEDS: ENOXAPARIN 40 MG/0.4 ML SYRINGE SQ SCH (09:07)
[2019-10-16] MEDS: METOPROLOL SUCCINATE (ER) 100 MG TAB.ER.24H PO SCH (09:12)
[2019-10-16] MEDS: CHOLESTYRAMINE (WITH SUGAR) 4 GM PACKET PO SCH (11:42)
--- NOTE | 2019-10-16 11:59 | P.PN ---
Subjective Progress Note Date: 10/16/19 Principal diagnosis: Patient is a pleasant the 64-year-old female came in with bowel obstruction, patient underwent expiratory laparotomy with additional lysis bowel resection, repair of incisional hernia. Patient was subsequently admitted to ICU and patient the was started on antibiotics for colitis with cefepime and Flagyl. There is no evidence of heart failure because of which I'm not discontinuing diuretics at this time. Patient has sinus tachycardia today patient is an NG tube with minimal output. Patient has hyperactive bowel sounds atelectasis on the chest x-ray. 10/09/2019 Patient went into atrial fibrillation patient received Cardizem IV push followed by IV Cardizem but blood pressure is low patient was started on amiodarone will wean off Cardizem because of low blood pressure. Patient although feels okay bit tired. Patient is presently not on anti-correlation cardiology is following the patient 10/10/2019 patient is postoperative day 3 patient still has significant output from the NG tube patient is being started on TPN as per general surgery patient is sinus rhythm presently on Cardizem and amiodarone drip which is being weaned off patient is presently not on any anticoagulation . 10/11/2019 The patient is presently on TPN lactated Ringer's patient still has an NG tube in place remains on amiodarone drip and Cardizem drip. 10/12/2019 Patient was started on diet patient has waspassing gas. Patient is sinus rhythm today patient to NG tube is out at this time. Patient's IV Cardizem was discontinued IV amiodarone was discontinued patient is presently on metoprolol patient looks much better today. Patient remains on TPN 10/13/2019 Patient will transfer out of ICU patient is passing gas, postoperative day 6 patient is in and out of A. fib with rapid ventricular rate. Remains on TPN. With some vague abdominal discomfort 10/14/2019 patient had multiple episodes of diarrhea because of 3 obtain C. diff C. diff is negative. Patient at the only diffuse because of that left because of which the patient is having diarrhea and patient is on Lomotil will add Questran. We'll continue with IV fluids. 10/15/2019 No overnight events patient diarrhea is better. Constitutional: Denied any fatigue denied any fever. Cardio vascular: denied any chest pain, palpitations Gastrointestinal denied any nausea vomiting Pulmonary: Denied any shortness of breath cough Neurologic denied any new focal deficits All inpatient medications were reviewed and appropriate changes in these medications as dictated in the interval history and assessment and plan. 10/16/2019 Patient is seen and evaluated and follow-up with no acute overnight issues. Patient is tolerating diet with no further reports of diarrhea noted. Patient continues to have some mild abdominal discomfort although states is much improved. Patient is continuing to use the abdominal binder. No reports of chest pain, shortness of breath, or palpitations. Patient is afebrile. No reports of nausea or vomiting and patient is tolerating diet. States she is being discharged today. Patient will follow-up with surgery in the outpatient setting. Objective - Vital Signs Vital signs: Vital Signs Temp 98.3 F 10/16/19 08:10 Pulse 95 10/16/19 08:10 Resp 16 10/16/19 08:10 BP 125/75 10/16/19 08:10 Pulse Ox 98 10/16/19 08:10 Intake & Output 10/15/19 10/16/19 10/16/19 18:59 06:59 18:59 Intake Total 100 Balance 100 Weight 72.1 kg Intake: Oral 100 Other: Voiding Method Indwelling Catheter # Voids 1 4 # Bowel Movements 1 2 ABP, PAP, CO, CI - Last Documented Arterial Blood Pressure 115/54 - Exam GENERAL: The patient is alert and oriented x3, not in any acute distress. Well developed, well nourished. HEENT: Pupils are round and equally reacting to light. EOMI. No scleral icterus. No conjunctival pallor. Normocephalic, atraumatic. No pharyngeal erythema. No thyromegaly. CARDIOVASCULAR: S1 and S2 present. No murmurs, rubs, or gallops. sinus rhythm rate controlled PULMONARY: Chest is clear to auscultation, no wheezing or crackles. ABDOMEN: Normal bowel sounds noted, abdominal binder noted. Surgical dressing is dry and intact. MUSCULOSKELETAL: No joint swelling or deformity. EXTREMITIES: No cyanosis, clubbing, or pedal edema. NEUROLOGICAL: Gross neurological examination did not reveal any focal deficits. SKIN: No rashes. - Labs CBC & Chem 7: 10/15/19 07:38 10/15/19 07:38 Labs: Abnormal Lab Results - Last 24 Hours (Table) 06/10/20 06/10/20 Range/Units 07:38 07:38 RBC 3.16 L (3.80-5.40) m/uL Hgb 8.4 L (11.4-16.0) gm/dL Hct 28.0 L (34.0-46.0) % MCHC 30.0 L (31.0-37.0) g/dL RDW 15.7 H (11.5-15.5) % Potassium 3.3 L (3.5-5.1) mmol/L Chloride 112 H (98-107) mmol/L Carbon Dioxide 18 L (22-30) mmol/L BUN 5 L (7-17) mg/dL Creatinine 0.32 L (0.52-1.04) mg/dL Assessment and Plan Assessment: -recurrent small bowel obstruction status post exploratory laparotomy adhesion lysis, and small bowel resection incisional hernia repair and operative findings of colitis. -diarrhea ruled out colitis. Patient diarrhea secondary to small bowel resection most of her bowel was resected. -Mild leukocytosis, improved -Atrial fibrillation, currently sinus rhythm -History of DVT in the past -Coronary artery disease -Seizure disorder -Hypertension -Depression -Osteoarthritis Plan: Patient to continue with current diet and advance slowly as tolerated. Will continue to follow along closely with surgery while hospitalized. Appropriate Home medications have been resumed. Patient will need follow-up with primary ca re provider to discuss medications and will be following up with surgery in the outpatient setting. Patient states she is being discharged today.
[2019-10-16 12:52] VITALS: BP 120/79; PULSE 84
--- NOTE | 2019-10-28 08:23 | CDI ---
Documentation Clarification Form Date: 10/14/2019 02:51:00 PM From: Belinda Pacheco RN, CCDS Admit Date: 10/06/2019 10:54:00 AM Patient Name: Cynthia Duke Visit Number: [id number] Discharge Date: 10/16/2019 02:39:00 PM ATTENTION: The Clinical Documentation Specialists (CDI) and [facility] Coding Staff appreciate your assistance in clarifying documentation. Please respond to the clarification below the line at the bottom and electronically sign. The CDI & [facility] Coding staff will review the response and follow-up if needed. Please note: Queries are made part of the Legal Health Record. If you have any questions, please contact the author of this message via ITS. Dr. Pio Duron 10/08 Paroxysmal atrial fibrillation is in the progress notes. Request clarification and clinical significance of the atrial fibrillation Patients Admitting Diagnosis: 10/05 Small Bowel Obstruction Post-Operative Diagnosis: same Procedure performed: Exploratory laparotomy extensive lysis of adhesions, small bowel resection x2, incisional hernia. History/Risk Factors: CAD, COPD, Hypertension, Heart failure, DVT, [place], Irregular heart rate, possible atrial fibrillation many years back. Seizures, Multiple bowel obstructions. Clinical Indicators: 64-year-old female who present with small bowel obstruction and status post surgery. On 10/07 A.fib with RVR is documented. The past medical history has history of irregular heart rate, possible atrial fibrillation many years back. Treatment: ICU/Telemetry monitoring Lactated Ringer @ 50 mls hr Cefepime 2 gm IV q8 hrs Cardizem IV @ 10 mg hr (weaned off because of low blood pressure) Amiodarone IV 300 mg in 250 mls @ 0.5 mg/min (25 mg hr TPN 10/07 ECHO: Resting tachycardia (HR>100 bpm) Overall left ventricular systolic function is normal with an EF between 60-65 % 10/07 Pulmonary: New onset atrial fibrillation with rapid ventricular response. Did not respond well to Cardizem. Amiodarone protocol In order to accurately reflect this patients severity of illness, .please further clarify Atrial Fibrillation -is a complication of surgical procedure -is an expected outcome of the surgical procedure -is related to co-morbid condition(s) of (specify ) -Other please specify -Unable to determine (Last Revision: June 2019) Paroxysmal atrial fibrillation. Unable to determine if related to surgery. [facility]
== END 2019-10-16 14:39 | disposition home health service (06) | DRG 330 ==
LOC: EC 06:56 → 4SSUR 10:54 → 2SICU 10-07 13:18 → 4SSUR 10-14 05:15 → 6PED 10-15 09:45
PROVIDERS: ADMIT Surgery; ATTEND Surgery
PROC: 0WQF0ZZ Repair Abdominal Wall, Open Approach (ICD-10-PCS; principal; 2019-10-07 10:20)
PROC: 0DB80ZZ Excision of Small Intestine, Open Approach (ICD-10-PCS; principal; 2019-10-07 10:20)
PROC: 0DN80ZZ Release Small Intestine, Open Approach (ICD-10-PCS; principal; 2019-10-07 10:20)
PROC: 02HV33Z Insertion of Infusion Device into Superior Vena Cava, Percutaneous Approach (ICD-10-PCS; 2019-10-09)
DX: K56.50 Intestinal adhesions [bands], unspecified as to partial versus complete obstruction (principal); D62 Acute posthemorrhagic anemia; J98.11 Atelectasis; K43.2 Incisional hernia without obstruction or gangrene; K44.9 Diaphragmatic hernia without obstruction or gangrene; J44.9 Chronic obstructive pulmonary disease, unspecified; K21.9 Gastro-esophageal reflux disease without esophagitis; E78.5 Hyperlipidemia, unspecified; F32.9 Major depressive disorder, single episode, unspecified; F41.1 Generalized anxiety disorder; G40.909 Epilepsy, unspecified, not intractable, without status epilepticus; I08.1 Rheumatic disorders of both mitral and tricuspid valves; I11.0 Hypertensive heart disease with heart failure; I25.10 Atherosclerotic heart disease of native coronary artery without angina pectoris; I25.2 Old myocardial infarction; I48.0 Paroxysmal atrial fibrillation; I50.9 Heart failure, unspecified; K52.9 Noninfective gastroenteritis and colitis, unspecified; N28.1 Cyst of kidney, acquired; K57.30 Diverticulosis of large intestine without perforation or abscess without bleeding; Z11.59 Encounter for screening for other viral diseases; M19.90 Unspecified osteoarthritis, unspecified site; Z79.1 Long term (current) use of non-steroidal anti-inflammatories (NSAID); Z79.2 Long term (current) use of antibiotics; Z79.899 Other long term (current) drug therapy; Z85.3 Personal history of malignant neoplasm of breast; Z85.42 Personal history of malignant neoplasm of other parts of uterus; Z85.43 Personal history of malignant neoplasm of ovary; Z86.718 Personal history of other venous thrombosis and embolism; Z86.73 Personal history of transient ischemic attack (TIA), and cerebral infarction without residual deficits; Z90.13 Acquired absence of bilateral breasts and nipples; Z90.710 Acquired absence of both cervix and uterus; Z90.49 Acquired absence of other specified parts of digestive tract; Z86.14 Personal history of Methicillin resistant Staphylococcus aureus infection; Z80.1 Family history of malignant neoplasm of trachea, bronchus and lung; Z80.0 Family history of malignant neoplasm of digestive organs; Z88.1 Allergy status to other antibiotic agents; Z88.5 Allergy status to narcotic agent; Z88.0 Allergy status to penicillin; Z88.2 Allergy status to sulfonamides
CPT/HCPCS: 36410; 36415; 36573; 71045; 74018; 74177; 76937; 80048; 80053; 81001; 82040; 82330; 83690; 83735; 83880; 84100; 84132; 84478; 85025; 85027; 86850; 86900; 86901; 87040; 87086; 87324; 88307; 93005; 93306; 96361; 96374; 96376; 99285

== ENCOUNTER 2019-11-24 17:32 | Inpatient (IN) | payer MEDICARE, OTHER ==
[2019-11-24 19:17] LABS: Appearance,Urine Clear (Clear); Bacteria,Urine Occasional /hpf; Bilirubin,Urine Negative (Negative); Blood,Urine Negative (Negative); Color,Urine Yellow; Glucose,Urine (UA) Negative (Negative); Ketones,Urine Negative (Negative); Leukocyte Esterase,Urine Small (Negative); Mucus,Urine Rare /hpf; Nitrite,Urine Negative (Negative); Protein,Urine Trace (Negative); RBC,Urine 3 /hpf (0-5); Squamous Epithelial Cell,Urine <1 /hpf (0-4); Urobilinogen,Urine <2.0 mg/dL (<2.0); WBC,Urine 6 /hpf (0-5)
[2019-11-24] MEDS ORDERED: ONDANSETRON 4 MG/2 ML VIAL IVP STA (19:24)
[2019-11-24] MEDS ORDERED: fentaNYL (PF) 50 MCG/ML 2 ML AMP IVP STA (19:26)
[2019-11-24] MEDS ORDERED: SODIUM CHLORIDE 0.9% 1,000 ML IV ONE (19:26)
[2019-11-24] MEDS: HYDROmorphone 1 MG/ML 1 ML SYRINGE IVP STA ×2 (19:52→21:08)
--- NOTE | 2019-11-24 19:52 | ED ---
GI Bleed HPI - General Chief complaint: GI Bleed Stated complaint: Blood in Stool Time Seen by Provider: 11/24/19 18:34 Source: patient Mode of arrival: ambulatory Limitations: no limitations - History of Present Illness Initial comments: Patient is a 64-year-old female past medical history of small bowel obstruction with resection by Dr. Artis on October 06 presents emergency department with reported abdominal pain. Patient states that she began having nausea with vomiting that started last night. Vomiting is nonbilious, nonbloody. She reports to right-sided abdominal pain which is sharp and has been getting worse. On Sunday she did note that she had some dark blood in her stool. Earlier today she noted some bright red blood. Denies rectal pain. Admits to chronic diarrhea. She did not attempt to take any medications for her symptoms. She denies any fevers or chills. Also reports to dysuria some confusion. States that she has felt like this previously with previous urinary tract infections. Patient currently on any antibiotics. Does have a midline incision which has healed over. No redness, swelling to the skin. No other alleviating, precipitating modifying factors - Related Data Home Medications Medication Instructions Recorded Confirmed Metoprolol Succinate (ER) [Toprol 100 mg PO DAILY 08/01/18 11/24/19 XL] Pantoprazole Sodium [Protonix] 80 mg PO DAILY 08/01/18 11/24/19 Ibuprofen [Motrin] 600 mg PO AC-TID PRN 10/06/19 11/24/19 Lidocaine 5% Oint [Xylocaine 5% 1 applic TOPICAL DAILY PRN 10/06/19 11/24/19 Oint] Naratriptan HCl 2.5 mg PO DAILY PRN 10/06/19 11/24/19 traMADol HCL 100 mg PO Q6H PRN 10/06/19 11/24/19 diazePAM [Valium] 5 mg VAGINAL TID PRN 11/24/19 11/24/19 Previous Rx's Medication Instructions Recorded Docusate [Colace] 100 mg PO BID #20 capsule 10/16/19 Allergies Allergy/AdvReac Type Severity Reaction Status Date / Time carbamazepine [From Tegretol] Allergy increases Verified 11/24/19 22:37 seizures ciprofloxacin [From Cipro] Allergy Unknown Verified 11/24/19 22:37 clindamycin Allergy Nausea & Verified 11/24/19 22:37 Vomiting doxycycline Allergy Unknown Verified 11/24/19 22:37 morphine Allergy Rash/Hives Verified 11/24/19 22:37 Penicillins Allergy Anaphylaxis Verified 11/24/19 22:37 phenobarbital Allergy Rash/Hives Verified 11/24/19 22:37 phenytoin [From Dilantin] Allergy Anaphylaxis Verified 11/24/19 22:37 Review of Systems ROS Statement: Those systems with pertinent positive or pertinent negative responses have been documented in the HPI. ROS Other: All systems not noted in ROS Statement are negative. Past Medical History Past Medical History: Cancer, Heart Failure, COPD, CVA/TIA, Deep Vein Thrombosis (DVT), GERD/Reflux, Hypertension, Myocardial Infarction ([place]), Neurologic Disorder, Osteoarthritis (OA), Seizure Disorder Additional Past Medical History / Comment(s): History of bilateral breast cancer, ovarian cancer, uterine cancer, history of CVA back in 1982, history of irregular heart rate possibly atrial fibrillation many years back, history of petit mal seizures, coronary artery disease, previous PA, history of DVT, history of acid reflux, history of COPD, hypertension, osteoarthritis, multiple bowel obstruction requiring previous abdominal surgeries and bowel resection. She also has renal cysts Last Myocardial Infarction Date:: 1997 History of Any Multi-Drug Resistant Organisms: MRSA Date of last positivie culture/infection: 2003 MDRO Source:: lt hip Past Surgical History: Appendectomy, Back Surgery, Bowel Resection, Breast Surgery, Cholecystectomy, Hysterectomy, Orthopedic Surgery, Tonsillectomy Additional Past Surgical History / Comment(s): earnest mastectomy, oopherectomy back surgery x5 with last sx cage in back, bowel resection x5-6, earnest. carpal tunnel, lt rotator cuff repair Past Anesthesia/Blood Transfusion Reactions: Previous Problems w/ Anesthesia Additional Past Anesthesia/Blood Transfusion Reaction / Comment(s): experiences anxiety prior to surgery and agitiation. b/p elevates during surgery. woke up during surgery. difficult IV start Past Psychological History: Anxiety, Depression Smoking Status: Never smoker Past Alcohol Use History: Rare Past Drug Use History: None Reported - Past Family History Mother Family Medical History: Cancer Additional Family Medical History / Comment(s): lung Father Family Medical History: Cancer Additional Family Medical History / Comment(s): prostate Brother(s) Family Medical History: Cancer Additional Family Medical History / Comment(s): lung with metastasis General Exam Limitations: no limitations General appearance: alert, in no apparent distress Head exam: Present: atraumatic, normocephalic, normal inspection Eye exam: Present: normal appearance, PERRL, EOMI. Absent: scleral icterus, c onjunctival injection, periorbital swelling ENT exam: Present: normal exam, mucous membranes moist Neck exam: Present: normal inspection. Absent: tenderness, meningismus, lymphadenopathy Respiratory exam: Present: normal lung sounds bilaterally. Absent: respiratory distress, wheezes, rales, rhonchi, stridor Cardiovascular Exam: Present: normal rhythm, tachycardia, normal heart sounds. Absent: systolic murmur, diastolic murmur, rubs, gallop, clicks GI/Abdominal exam: Present: soft, distended, tenderness (right upper/lower quadrant), guarding, normal bowel sounds. Absent: rebound, rigid Extremities exam: Present: normal inspection, full ROM, normal capillary refill. Absent: tenderness, pedal edema, joint swelling, calf tenderness Back exam: Present: normal inspection Neurological exam: Present: alert, oriented X3, CN II-XII intact Psychiatric exam: Present: normal affect, normal mood Skin exam: Present: warm, dry, intact, normal color. Absent: rash Course Vital Signs 11/24/19 11/24/19 11/24/19 17:36 18:58 21:52 Temperature 98.2 F 98.2 F Pulse Rate 101 H 82 84 Respiratory 18 18 18 Rate Blood Pressure 151/99 150/80 141/74 O2 Sat by Pulse 98 98 99 Oximetry 11/25/19 00:11 Temperature 98.6 F Pulse Rate 71 Respiratory 16 Rate Blood Pressure 132/80 O2 Sat by Pulse 100 Oximetry Medical Decision Making - Medical Decision Making Upon arrival patient placed into room 19. Thorough history and physical exam was performed. Peripheral IV was established. Patient is given pain and nausea medications. Patient sent over for CT of her abdomen and pelvis. Laboratory studies are remarkable for a potassium of 2.5. Hemoglobin is 10.5. Urinalysis shows small leukocyte esterase with 6 white blood cells and occasional bacteria. Fecal occult is negative. CT of the patient's abdomen and pelvis demonstrates large bowel fluid levels consistent with diarrhea. Nonobstructing renal calcul us. No evidence for bowel obstruction. Patient is reevaluated and after 3 doses pain medication her pain has improved. Patient's potassium replaced. Patient will be admitted to Dr. Mcgrath. Pain and nausea medications were ordered. I will consult surgery. Patient was in transfer to the floor in stable condition - Lab Data Result diagrams: 11/26/19 07:15 11/29/19 14:49 Lab Results 11/24/19 11/24/19 11/24/19 Range/Units 18:57 18:57 19:30 WBC 6.6 (3.8-10.6) k/uL RBC 4.28 (3.80-5.40) m/uL Hgb 10.5 L (11.4-16.0) gm/dL Hct 33.3 L (34.0-46.0) % MCV 77.7 L D (80.0-100.0) fL MCH 24.4 L (25.0-35.0) pg MCHC 31.4 (31.0-37.0) g/dL RDW 15.2 (11.5-15.5) % Plt Count 255 (150-450) k/uL Neutrophils % 72 % Lymphocytes % 16 % Monocytes % 9 % Eosinophils % 1 % Basophils % 0 % Neutrophils # 4.7 (1.3-7.7) k/uL Lymphocytes # 1.1 (1.0-4.8) k/uL Monocytes # 0.6 (0-1.0) k/uL Eosinophils # 0.1 (0-0.7) k/uL Basophils # 0.0 (0-0.2) k/uL Hypochromasia Marked Poikilocytosis Moderate Microcytosis Slight PT (9.0-12.0) sec INR (<1.2) Sodium (137-145) mmol/L Potassium (3.5-5.1) mmol/L Chloride (98-107) mmol/L Carbon Dioxide (22-30) mmol/L Anion Gap mmol/L BUN (7-17) mg/dL Creatinine (0.52-1.04) mg/dL Est GFR (CKD-EPI)AfAm (>60 ml/min/1.73 sqM) Est GFR (CKD-EPI)NonAf (>60 ml/min/1.73 sqM) Glucose (74-99) mg/dL Plasma Lactic Acid Eduardo (0.7-2.0) mmol/L Calcium (8.4-10.2) mg/dL Total Bilirubin (0.2-1.3) mg/dL AST (14-36) U/L ALT (4-34) U/L Alkaline Phosphatase (38-126) U/L Troponin I (0.000-0.034) ng/mL Total Protein (6.3-8.2) g/dL Albumin (3.5-5.0) g/dL Urine Color Yellow Urine Appearance Clear (Clear) Urine pH 8.0 (5.0-8.0) Ur Specific [place] 1.010 (1.001-1.035) Urine Protein Trace H (Negative) Urine Glucose (UA) Negative (Negative) Urine Ketones Negative (Negative) Urine Blood Negative (Negative) Urine Nitrite Negative (Negative) Urine Bilirubin Negative (Negative) Urine Urobilinogen <2.0 (<2.0) mg/dL Ur Leukocyte Esterase Small H (Negative) Urine RBC 3 (0-5) /hpf Urine WBC 6 H (0-5) /hpf Ur Squamous Epith Cells <1 (0-4) /hpf Urine Bacteria Occasional H (None) /hpf Urine Mucus Rare H (None) /hpf Stool Occult Blood Negative (Negative) 11/24/19 11/24/19 11/24/19 Range/Units 19:30 19:30 21:03 WBC (3.8-10.6) k/uL RBC (3.80-5.40) m/uL Hgb (11.4-16.0) gm/dL Hct (34.0-46.0) % MCV (80.0-100.0) fL MCH (25.0-35.0) pg MCHC (31.0-37.0) g/dL RDW (11.5-15.5) % Plt Count (150-450) k/uL Neutrophils % % Lymphocytes % % Monocytes % % Eosinophils % % Basophils % % Neutrophils # (1.3-7.7) k/uL Lymphocytes # (1.0-4.8) k/uL Monocytes # (0-1.0) k/uL Eosinophils # (0-0.7) k/uL Basophils # (0-0.2) k/uL Hypochromasia Poikilocytosis Microcytosis PT 11.3 (9.0-12.0) sec INR 1.1 (<1.2) Sodium 141 (137-145) mmol/L Potassium 2.4 L* (3.5-5.1) mmol/L Chloride 113 H (98-107) mmol/L Carbon Dioxide 20 L (22-30) mmol/L Anion Gap 8 mmol/L BUN 5 L (7-17) mg/dL Creatinine 0.34 L (0.52-1.04) mg/dL Est GFR (CKD-EPI)AfAm >90 (>60 ml/min/1.73 sqM) Est GFR (CKD-EPI)NonAf >90 (>60 ml/min/1.73 sqM) Glucose 111 H (74-99) mg/dL Plasma Lactic Acid Eduardo (0.7-2.0) mmol/L Calcium 9.2 (8.4-10.2) mg/dL Total Bilirubin 0.3 (0.2-1.3) mg/dL AST 33 (14-36) U/L ALT 27 (4-34) U/L Alkaline Phosphatase 128 H (38-126) U/L Troponin I <0.012 (0.000-0.034) ng/mL Total Protein 5.6 L (6.3-8.2) g/dL Albumin 3.2 L (3.5-5.0) g/dL Urine Color Urine Appearance (Clear) Urine pH (5.0-8.0) Ur Specific [place] (1.001-1.035) Urine Protein (Negative) Urine Glucose (UA) (Negative) Urine Ketones (Negative) Urine Blood (Negative) Urine Nitrite (Negative) Urine Bilirubin (Negative) Urine Urobilinogen (<2.0) mg/dL Ur Leukocyte Esterase (Negative) Urine RBC (0-5) /hpf Urine WBC (0-5) /hpf Ur Squamous Epith Cells (0-4) /hpf Urine Bacteria (None) /hpf Urine Mucus (None) /hpf Stool Occult Blood (Negative) 11/24/19 Range/Units 21:03 WBC (3.8-10.6) k/uL RBC (3.80-5.40) m/uL Hgb (11.4-16.0) gm/dL Hct (34.0-46.0) % MCV (80.0-100.0) fL MCH (25.0-35.0) pg MCHC (31.0-37.0) g/dL RDW (11.5-15.5) % Plt Count (150-450) k/uL Neutrophils % % Lymphocytes % % Monocytes % % Eosinophils % % Basophils % % Neutrophils # (1.3-7.7) k/uL Lymphocytes # (1.0-4.8) k/uL Monocytes # (0-1.0) k/uL Eosinophils # (0-0.7) k/uL Basophils # (0-0.2) k/uL Hypochromasia Poikilocytosis Microcytosis PT (9.0-12.0) sec INR (<1.2) Sodium (137-145) mmol/L Potassium (3.5-5.1) mmol/L Chloride (98-107) mmol/L Carbon Dioxide (22-30) mmol/L Anion Gap mmol/L BUN (7-17) mg/dL Creatinine (0.52-1.04) mg/dL Est GFR (CKD-EPI)AfAm (>60 ml/min/1.73 sqM) Est GFR (CKD-EPI)NonAf (>60 ml/min/1.73 sqM) Glucose (74-99) mg/dL Plasma Lactic Acid Eduardo 1.4 (0.7-2.0) mmol/L Calcium (8.4-10.2) mg/dL Total Bilirubin (0.2-1.3) mg/dL AST (14-36) U/L ALT (4-34) U/L Alkaline Phosphatase (38-126) U/L Troponin I (0.000-0.034) ng/mL Total Protein (6.3-8.2) g/dL Albumin (3.5-5.0) g/dL Urine Color Urine Appearance (Clear) Urine pH (5.0-8.0) Ur Specific [place] (1.001-1.035) Urine Protein (Negative) Urine Glucose (UA) (Negative) Urine Ketones (Negative) Urine Blood (Negative) Urine Nitrite (Negative) Urine Bilirubin (Negative) Urine Urobilinogen (<2.0) mg/dL Ur Leukocyte Esterase (Negative) Urine RBC (0-5) /hpf Urine WBC (0-5) /hpf Ur Squamous Epith Cells (0-4) /hpf Urine Bacteria (None) /hpf Urine Mucus (None) /hpf Stool Occult Blood (Negative) - EKG Data EKG Comments: EKG demonstrates normal sinus rhythm with a ventricular rate of 84. When necessary interval 196. QRS 86. QTC of 465. No acute ST segment elevations or depressions concerning for ischemic changes Disposition Clinical Impression: Weakness, Abdominal pain, Vomiting, Hypokalemia, Diarrhea Disposition: ADMITTED IP TO THIS [facility] Condition: Stable Is patient prescribed a controlled substance at d/c from ED?: No Decision to Admit Reason: Admit from EC Decision Date: 11/24/19 Decision Time: 22:59
[2019-11-24 20:06] LABS: ALT 27 U/L (4-34); AST 33 U/L (14-36); African American GFR (CKD) >90 (>60 ml/min/1.73 sqM); Albumin 3.2 g/dL (3.5-5.0); Alkaline Phosphatase 128 U/L (38-126); Anion Gap 8 mmol/L; Blood Urea Nitrogen 5 mg/dL (7-17); Calcium 9.2 mg/dL (8.4-10.2); Carbon Dioxide 20 mmol/L (22-30); Chloride 113 mmol/L (98-107); Glucose 111 mg/dL (74-99); Non-African American GFR(CKD) >90 (>60 ml/min/1.73 sqM); Sodium 141 mmol/L (137-145); Total Bilirubin 0.3 mg/dL (0.2-1.3); Total Protein 5.6 g/dL (6.3-8.2)
[2019-11-24 20:15] LABS: Potassium 2.4 mmol/L (3.5-5.1)
[2019-11-24 20:41] LABS: Basophils % (A) 0 %; Eosinophils # (A) 0.1 k/uL (0-0.7); Eosinophils % (A) 1 %; HCT 33.3 % (34.0-46.0); HGB 10.5 gm/dL (11.4-16.0); Hypochromasia Marked; Lymphocytes # (A) 1.1 k/uL (1.0-4.8); Lymphocytes % (A) 16 %; MCH 24.4 pg (25.0-35.0); MCHC 31.4 g/dL (31.0-37.0); Mean Platelet Volume 8.6; Microcytosis Slight; Monocytes # (A) 0.6 k/uL (0-1.0); Monocytes % (A) 9 %; Neutrophils # (A) 4.7 k/uL (1.3-7.7); Neutrophils % (A) 72 %; Platelet Count 255 k/uL (150-450); Poikilocytosis Moderate; RBC 4.28 m/uL (3.80-5.40); RDW 15.2 % (11.5-15.5); WBC 6.6 k/uL (3.8-10.6)
[2019-11-24 20:50] LABS: MCV 77.7 fL (80.0-100.0)
[2019-11-24 21:18] LABS: INR 1.1 (<1.2); Prothrombin Time 11.3 sec (9.0-12.0)
--- NOTE | 2019-11-24 21:54 | CT ---
EXAMINATION TYPE: CT abdomen pelvis w con DATE OF EXAM: 11/24/2019 COMPARISON: 10/06/2019 HISTORY: Abdominal pain and blood in stool CT DLP: 669.5 mGycm Automated exposure control for dose reduction was used. CONTRAST: Performed with IV Contrast, patient injected with 100 mL of Isovue 300. There is some patchy atelectasis at the lung bases. There is no pleural effusion. There are bilateral breast implants with calcification on the left side. There is no pericardial effusion. There is some fatty infiltration of the liver. The bile ducts are not dilated. There are clips from c holecystectomy. There is no evidence of pancreatic mass. Spleen is intact. The stomach is intact. There is no adrenal mass. Kidneys show satisfactory contrast opacification. There is 2 mm calculus po sterior right kidney. There is 2 cm cortical cyst lateral right kidney. There is 2 mm calcification i n the cortex posterior left kidney. There is no hydronephrosis. There is no evidence of solid renal m ass. There is high density material in the dependent large bowel consistent with medication. This cou ld be Pepto-Bismol. There are multiple large bowel fluid levels down to the rectum. There is apparent intestinal surgery in the anterior lower mid abdomen. There are numerous sigmoid diverticula. I see no definite diverticulitis. There is relative lack of small bowel. There is probably significant rese ction of small bowel. There is posterior fusion surgery in the lumbar spine from L4 to S1. I see no focal bone destruction. The bony pelvis appears intact. IMPRESSION: Large bowel fluid levels consistent with diarrhea. Nonobstructing renal calculi. I do not see evidenc e for bowel obstruction. Extensive small bowel surgery. Sigmoid diverticulosis without diverticulitis. Large bowel fluid levels are a change compared to old exam. There is clearing of the dilated small bowel in the midabdomen to a large extent compared to ol d exam. There is clearing of the dilated biliary tree compared to old exam.
[2019-11-24] MEDS ORDERED: POTASSIUM CHLORIDE ER 20 MEQ TAB.ER PO STA (22:06)
[2019-11-24] MEDS ORDERED: HYDROmorphone 1 MG/ML 1 ML SYRINGE IVP STA (22:06)
[2019-11-24] MEDS ORDERED: METOCLOPRAMIDE 5 MG/ML 2 ML VIAL IVP STA (22:06)
[2019-11-24] MEDS ORDERED: NITROFURANTOIN MONOHYD/M-CRYST 100 MG CAP PO ONE (22:15)
[2019-11-24] MEDS ORDERED: POTASSIUM CHLORIDE 20 MEQ in WATER FOR INJECTION 1 100ML.BAG IVPB ONE (22:15)
[2019-11-24] MEDS ORDERED: NALOXONE 0.4 MG/ML 1 ML VIAL IV PRN (23:00)
[2019-11-25] MEDS: SODIUM CHLORIDE 0.9% 1,000 ML IV SCH ×3 (00:10→19:40)
[2019-11-25] MEDS: HYDROmorphone 1 MG/ML 1 ML SYRINGE IVP PRN ×7 (00:59→20:53)
[2019-11-25 08:23] LABS: Basophils % (A) 1 %; Eosinophils # (A) 0.4 k/uL (0-0.7); Eosinophils % (A) 5 %; HCT 32.1 % (34.0-46.0); HGB 10.1 gm/dL (11.4-16.0); Hypochromasia Marked; Lymphocytes # (A) 1.7 k/uL (1.0-4.8); Lymphocytes % (A) 24 %; MCH 24.8 pg (25.0-35.0); MCHC 31.4 g/dL (31.0-37.0); MCV 78.9 fL (80.0-100.0); Mean Platelet Volume 9.3; Monocytes # (A) 0.6 k/uL (0-1.0); Monocytes % (A) 9 %; Neutrophils # (A) 4.1 k/uL (1.3-7.7); Neutrophils % (A) 59 %; Platelet Count 267 k/uL (150-450); Poikilocytosis Moderate; RBC 4.06 m/uL (3.80-5.40); RDW 15.5 % (11.5-15.5); WBC 6.9 k/uL (3.8-10.6)
[2019-11-25 08:32] LABS: African American GFR (CKD) >90 (>60 ml/min/1.73 sqM); Anion Gap 9 mmol/L; Blood Urea Nitrogen 4 mg/dL (7-17); Calcium 8.5 mg/dL (8.4-10.2); Carbon Dioxide 15 mmol/L (22-30); Chloride 119 mmol/L (98-107); Glucose 100 mg/dL (74-99); Non-African American GFR(CKD) >90 (>60 ml/min/1.73 sqM); Sodium 143 mmol/L (137-145)
[2019-11-25 08:40] LABS: Potassium 3.3 mmol/L (3.5-5.1)
[2019-11-25] MEDS ORDERED: Potassium Replacement Protocol 1 EACH MISC MISCELLANE PRN ×2 (11:11)
[2019-11-25] MEDS: PANTOPRAZOLE 40 MG/10 ML VIAL IVP SCH ×2 (11:18→19:36)
[2019-11-25] MEDS: POTASSIUM CHLORIDE ER 20 MEQ TAB.ER PO SCH ×2 (11:19→13:47)
--- NOTE | 2019-11-25 12:03 | P.GSCN ---
History of Present Illness Consult date: 11/25/19 Reason for Consult: Abdominal pain History of present illness: This is a 64-year-old female well-known to myself. Patient underwent recent exp loratory laparotomy with small bowel resection for internal hernia. Patient has a history of chronic pain. She also now has history of diarrhea due to her shortened small bowel. Patient states that her pain worsened last night. She has had issues with diarrhea for some time. Patient does have a low potassium 2.4 on admission Past Medical History Past Medical History: Cancer, Heart Failure, COPD, CVA/TIA, Deep Vein Thrombosis (DVT), GERD/Reflux, Hypertension, Myocardial Infarction ([place]), Neurologic Disorder, Osteoarthritis (OA), Seizure Disorder Additional Past Medical History / Comment(s): History of bilateral breast cancer , ovarian cancer, uterine cancer, history of CVA back in 1982, history of irregular heart rate possibly atrial fibrillation many years back, history of petit mal seizures, coronary artery disease, previous NV, history of DVT, history of acid reflux, history of COPD, hypertension, osteoarthritis, multiple bowel obstruction requiring previous abdominal surgeries and bowel resection. She also has renal cysts Last Myocardial Infarction Date:: 1997 History of Any Multi-Drug Resistant Organisms: MRSA Year Discovered:: 2003 MDRO Source:: lt hip Past Surgical History: Appendectomy, Back Surgery, Bowel Resection, Breast Surgery, Cholecystectomy, Hysterectomy, Orthopedic Surgery, Tonsillectomy Additional Past Surgical History / Comment(s): earnest mastectomy, oopherectomy back surgery x5 with last sx cage in back, bowel resection x5-6, earnest. carpal tunnel, lt rotator cuff repair Past Anesthesia/Blood Transfusion Reactions: Previous Problems w/ Anesthesia Additional Past Anesthesia/Blood Transfusion Reaction / Comm: experiences anxiety prior to surgery and agitiation. b/p elevates during surgery. woke up during surgery. difficult IV start Past Psychological History: Anxiety, Depression Smoking Status: Never smoker Past Alcohol Use History: Rare Past Drug Use History: None Reported - Past Family History Mother Family Medical History: Cancer Additional Family Medical History / Comment(s): lung Father Family Medical History: Cancer Additional Family Medical History / Comment(s): prostate Brother(s) Family Medical History: Cancer Additional Family Medical History / Comment(s): lung with metastasis Medications and Allergies Home Medications Medication Instructions Recorded Confirmed Type Metoprolol Succinate (ER) [Toprol 100 mg PO DAILY 08/01/18 11/24/19 History XL] Pantoprazole Sodium [Protonix] 80 mg PO DAILY 08/01/18 11/24/19 History Ibuprofen [Motrin] 600 mg PO AC-TID PRN 10/06/19 11/24/19 History Lidocaine 5% Oint [Xylocaine 5% 1 applic TOPICAL DAILY PRN 10/06/19 11/24/19 History Oint] Naratriptan HCl 2.5 mg PO DAILY PRN 10/06/19 11/24/19 History traMADol HCL 100 mg PO Q6H PRN 10/06/19 11/24/19 History Docusate [Colace] 100 mg PO BID #20 capsule 10/16/19 11/24/19 Rx Diazepam [Valium] 5 mg VAGINAL TID PRN 11/24/19 11/24/19 History Allergies Allergy/AdvReac Type Severity Reaction Status Date / Time carbamazepine [From Tegretol] Allergy increases Verified 11/24/19 22:37 seizures ciprofloxacin [From Cipro] Allergy Unknown Verified 11/24/19 22:37 clindamycin Allergy Nausea & Verified 11/24/19 22:37 Vomiting doxycycline Allergy Unknown Verified 11/24/19 22:37 morphine Allergy Rash/Hives Verified 11/24/19 22:37 Penicillins Allergy Anaphylaxis Verified 11/24/19 22:37 phenobarbital Allergy Rash/Hives Verified 11/24/19 22:37 phenytoin [From Dilantin] Allergy Anaphylaxis Verified 11/24/19 22:37 Surgical - Exam Vital Signs Temp Pulse Resp BP Pulse Ox 98.2 F 101 H 18 151/99 98 11/24/19 17:36 11/24/19 17:36 11/24/19 17:36 11/24/19 17:36 11/24/19 17:36 - General well developed, well nourished, no distress - Eyes PERRL - ENT normal pinna - Neck no masses - Respiratory normal expansion - Cardiovascular Rhythm: regular - Abdomen Minimal tenderness. There is no rebound or guarding Abdomen: soft Results - Labs 11/25/19 07:45 11/25/19 07:45 Abnormal Lab Results - Last 24 Hours (Table) 11/24/19 11/24/19 11/24/19 Range/Units 18:57 19:30 19:30 Hgb 10.5 L (11.4-16.0) gm/dL Hct 33.3 L (34.0-46.0) % MCV 77.7 L D (80.0-100.0) fL MCH 24.4 L (25.0-35.0) pg Potassium 2.4 L* (3.5-5.1) mmol/L Chloride 113 H (98-107) mmol/L Carbon Dioxide 20 L (22-30) mmol/L BUN 5 L (7-17) mg/dL Creatinine 0.34 L (0.52-1.04) mg/dL Glucose 111 H (74-99) mg/dL Alkaline Phosphatase 128 H (38-126) U/L Total Protein 5.6 L (6.3-8.2) g/dL Albumin 3.2 L (3.5-5.0) g/dL Urine Protein Trace H (Negative) Ur Leukocyte Esterase Small H (Negative) Urine WBC 6 H (0-5) /hpf Urine Bacteria Occasional H (None) /hpf Urine Mucus Rare H (None) /hpf 11/25/19 11/25/19 Range/Units 07:45 07:45 Hgb 10.1 L (11.4-16.0) gm/dL Hct 32.1 L (34.0-46.0) % MCV 78.9 L (80.0-100.0) fL MCH 24.8 L (25.0-35.0) pg Potassium 3.3 L (3.5-5.1) mmol/L Chloride 119 H (98-107) mmol/L Carbon Dioxide 15 L (22-30) mmol/L BUN 4 L (7-17) mg/dL Creatinine 0.35 L (0.52-1.04) mg/dL Glucose 100 H (74-99) mg/dL Alkaline Phosphatase (38-126) U/L Total Protein (6.3-8.2) g/dL Albumin (3.5-5.0) g/dL Urine Protein (Negative) Ur Leukocyte Esterase (Negative) Urine WBC (0-5) /hpf Urine Bacteria (None) /hpf Urine Mucus (None) /hpf Diabetes panel 11/24/19 11/25/19 Range/Units 19:30 07:45 Sodium 141 143 (137-145) mmol/L Potassium 2.4 L* 3.3 L (3.5-5.1) mmol/L Chloride 113 H 119 H (98-107) mmol/L Carbon Dioxide 20 L 15 L (22-30) mmol/L BUN 5 L 4 L (7-17) mg/dL Creatinine 0.34 L 0.35 L (0.52-1.04) mg/dL Glucose 111 H 100 H (74-99) mg/dL Calcium 9.2 8.5 (8.4-10.2) mg/dL AST 33 (14-36) U/L ALT 27 (4-34) U/L Alkaline Phosphatase 128 H (38-126) U/L Total Protein 5.6 L (6.3-8.2) g/dL Albumin 3.2 L (3.5-5.0) g/dL Calcium panel 11/24/19 11/25/19 Range/Units 19:30 07:45 Calcium 9.2 8.5 (8.4-10.2) mg/dL Albumin 3.2 L (3.5-5.0) g/dL Pituitary panel 11/24/19 11/25/19 Range/Units 19:30 07:45 Sodium 141 143 (137-145) mmol/L Potassium 2.4 L* 3.3 L (3.5-5.1) mmol/L Chloride 113 H 119 H (98-107) mmol/L Carbon Dioxide 20 L 15 L (22-30) mmol/L BUN 5 L 4 L (7-17) mg/dL Creatinine 0.34 L 0.35 L (0.52-1.04) mg/dL Glucose 111 H 100 H (74-99) mg/dL Calcium 9.2 8.5 (8.4-10.2) mg/dL Adrenal panel 11/24/19 11/25/19 Range/Units 19:30 07:45 Sodium 141 143 (137-145) mmol/L Potassium 2.4 L* 3.3 L (3.5-5.1) mmol/L Chloride 113 H 119 H (98-107) mmol/L Carbon Dioxide 20 L 15 L (22-30) mmol/L BUN 5 L 4 L (7-17) mg/dL Creatinine 0.34 L 0.35 L (0.52-1.04) mg/dL Glucose 111 H 100 H (74-99) mg/dL Calcium 9.2 8.5 (8.4-10.2) mg/dL Total Bilirubin 0.3 (0.2-1.3) mg/dL AST 33 (14-36) U/L ALT 27 (4-34) U/L Alkaline Phosphatase 128 H (38-126) U/L Total Protein 5.6 L (6.3-8.2) g/dL Albumin 3.2 L (3.5-5.0) g/dL Assessment and Plan Assessment: Chronic pain Diarrhea due to shortened small bowel. Patient's hypokalemia will be treated. She'll most likely need potassium separate dictation. No surgical intervention is planned.
--- NOTE | 2019-11-25 12:40 | P.HPIM ---
History of Present Illness 64-year-old female past medical history of small bowel obstruction with resection by Dr. Artis on October 06 presents emergency department with reported abdominal pain. Patient states that she began having nausea with vomiting that started last night. Vomiting is nonbilious, nonbloody, patient was also company of diarrhea multiple episodes yesterday and even today she states she had 5 episodes of diarrhea. She reports to right-sided abdominal pain which is sharp and has been getting worse. On Sunday she did note that she had some dark blood in her stool. Earlier today she noted some bright red blood. Denies rectal pain. Admits to chronic diarrhea. She did not attempt to take any medications for her symptoms. She denies any fevers or chills. Also reports to dysuria and increased urinary frequency. States that she has felt like this previously with previous urinary tract infections. Patient currently on any antibiotics. Does have a midline incision which has healed over. No redness, swelling to the skin. No other alleviating, precipitating modifying factors. Patient denied any body aches. Review of Systems REVIEW OF SYSTEMS: CONSTITUTIONAL: No fever, no malaise, no fatigue. HEENT: No recent visual problems or hearing problems. Denied any sore throat. CARDIOVASCULAR: No chest pain, orthopnea, PND, no palpitations, no syncope. PULMONARY: No shortness of breath, no cough, no hemoptysis. GASTROINTESTINAL: As mentioned in HPI NEUROLOGICAL: No headaches, no weakness, no numbness. HEMATOLOGICAL: Denies any bleeding or petechiae. GENITOURINARY: Denies any burning micturition, frequency, or urgency. MUSCULOSKELETAL/RHEUMATOLOGICAL: Denies any joint pain, swelling, or any muscle pain. ENDOCRINE: Denies any polyuria or polydipsia. The rest of the 14-point review of systems is negative. Past Medical History Past Medical History: Cancer, Heart Failure, COPD, CVA/TIA, Deep Vein Thrombosis (DVT), GERD/Reflux, Hypertension, Myocardial Infarction (OK), Neurologic Disorder, Osteoarthritis (OA), Seizure Disorder Additional Past Medical History / Comment(s): History of bilateral breast cancer, ovarian cancer, uterine cancer, history of CVA back in 1982, history of irregular heart rate possibly atrial fibrillation many years back, history of petit mal seizures, coronary artery disease, previous OK, history of DVT, history of acid reflux, history of COPD, hypertension, osteoarthritis, multiple bowel obstruction requiring previous abdominal surgeries and bowel resection. She also has renal cysts Last Myocardial Infarction Date:: 1997 History of Any Multi-Drug Resistant Organisms: MRSA Date of last positivie culture/infection: 2003 MDRO Source:: lt hip Past Surgical History: Appendectomy, Back Surgery, Bowel Resection, Breast Surgery, Cholecystectomy, Hysterectomy, Orthopedic Surgery, Tonsillectomy Additional Past Surgical History / Comment(s): earnest mastectomy, oopherectomy back surgery x5 with last sx cage in back, bowel resection x5-6, earnest. carpal tunnel, lt rotator cuff repair Past Anesthesia/Blood Transfusion Reactions: Previous Problems w/ Anesthesia Additional Past Anesthesia/Blood Transfusion Reaction / Comment(s): experiences anxiety prior to surgery and agitiation. b/p elevates during surgery. woke up during surgery. difficult IV start Past Psychological History: Anxiety, Depression Smoking Status: Never smoker Past Alcohol Use History: Rare Past Drug Use History: None Reported - Past Family History Mother Family Medical History: Cancer Additional Family Medical History / Comment(s): lung Father Family Medical History: Cancer Additional Family Medical History / Comment(s): prostate Brother(s) Family Medical History: Cancer Additional Family Medical History / Comment(s): lung with metastasis Medications and Allergies Home Medications Medication Instructions Recorded Confirmed Type Metoprolol Succinate (ER) [Toprol 100 mg PO DAILY 08/01/18 11/24/19 History XL] Pantoprazole Sodium [Protonix] 80 mg PO DAILY 08/01/18 11/24/19 History Ibuprofen [Motrin] 600 mg PO AC-TID PRN 10/06/19 11/24/19 History Lidocaine 5% Oint [Xylocaine 5% 1 applic TOPICAL DAILY PRN 10/06/19 11/24/19 History Oint] Naratriptan HCl 2.5 mg PO DAILY PRN 10/06/19 11/24/19 History traMADol HCL 100 mg PO Q6H PRN 10/06/19 11/24/19 History Docusate [Colace] 100 mg PO BID #20 capsule 10/16/19 11/24/19 Rx Diazepam [Valium] 5 mg VAGINAL TID PRN 11/24/19 11/24/19 History Allergies Allergy/AdvReac Type Severity Reaction Status Date / Time carbamazepine [From Tegretol] Allergy increases Verified 11/24/19 22:37 seizures ciprofloxacin [From Cipro] Allergy Unknown Verified 11/24/19 22:37 clindamycin Allergy Nausea & Verified 11/24/19 22:37 Vomiting doxycycline Allergy Unknown Verified 11/24/19 22:37 morphine Allergy Rash/Hives Verified 11/24/19 22:37 Penicillins Allergy Anaphylaxis Verified 11/24/19 22:37 phenobarbital Allergy Rash/Hives Verified 11/24/19 22:37 phenytoin [From Dilantin] Allergy Anaphylaxis Verified 11/24/19 22:37 Physical Exam Vitals: Vital Signs Temp Pulse Pulse Resp BP BP Pulse Ox 11/25/19 11:58 98.1 F 77 17 147/91 98 11/25/19 07:57 98.4 F 88 16 160/96 97 11/25/19 01:00 98 F 74 16 155/95 99 11/25/19 00:11 98.6 F 71 16 132/80 100 11/24/19 21:52 98.2 F 84 18 141/74 99 11/24/19 18:58 82 18 150/80 98 11/24/19 17:36 98.2 F 101 H 18 151/99 98 Intake and Output 11/24/19 11/25/19 11/25/19 22:59 06:59 14:59 Other: Voiding Method Toilet Toilet Diaper # Voids 1 # Bowel Movements 1 Weight 56.2 kg 56.2 kg PHYSICAL EXAMINATION: GENERAL: The patient is alert and oriented x3, not in any acute distress. Well developed, well nourished. HEENT: Pupils are round and equally reacting to light. EOMI. No scleral icterus. No conjunctival pallor. Normocephalic, atraumatic. No pharyngeal erythema. No thyromegaly. CARDIOVASCULAR: S1 and S2 present. No murmurs, rubs, or gallops. PULMONARY: Chest is clear to auscultation, no wheezing or crackles. ABDOMEN: Soft, nontender, nondistended, normoactive bowel sounds. No palpable organomegaly. As have surgical scars which appear to be clean. MUSCULOSKELETAL: No joint swelling or deformity. EXTREMITIES: No cyanosis, clubbing, or pedal edema. NEUROLOGICAL: Gross neurological examination did not reveal any focal deficits. SKIN: No rashes. Results CBC & Chem 7: 11/25/19 07:45 11/25/19 07:45 Labs: Abnormal Lab Results - Last 24 Hours (Table) 11/24/19 11/24/19 11/24/19 Range/Units 18:57 19:30 19:30 Hgb 10.5 L (11.4-16.0) gm/dL Hct 33.3 L (34.0-46.0) % MCV 77.7 L D (80.0-100.0) fL MCH 24.4 L (25.0-35.0) pg Potassium 2.4 L* (3.5-5.1) mmol/L Chloride 113 H (98-107) mmol/L Carbon Dioxide 20 L (22-30) mmol/L BUN 5 L (7-17) mg/dL Creatinine 0.34 L (0.52-1.04) mg/dL Glucose 111 H (74-99) mg/dL Alkaline Phosphatase 128 H (38-126) U/L Total Protein 5.6 L (6.3-8.2) g/dL Albumin 3.2 L (3.5-5.0) g/dL Urine Protein Trace H (Negative) Ur Leukocyte Esterase Small H (Negative) Urine WBC 6 H (0-5) /hpf Urine Bacteria Occasional H (None) /hpf Urine Mucus Rare H (None) /hpf 11/25/19 11/25/19 Range/Units 07:45 07:45 Hgb 10.1 L (11.4-16.0) gm/dL Hct 32.1 L (34.0-46.0) % MCV 78.9 L (80.0-100.0) fL MCH 24.8 L (25.0-35.0) pg Potassium 3.3 L (3.5-5.1) mmol/L Chloride 119 H (98-107) mmol/L Carbon Dioxide 15 L (22-30) mmol/L BUN 4 L (7-17) mg/dL Creatinine 0.35 L (0.52-1.04) mg/dL Glucose 100 H (74-99) mg/dL Alkaline Phosphatase (38-126) U/L Total Protein (6.3-8.2) g/dL Albumin (3.5-5.0) g/dL Urine Protein (Negative) Ur Leukocyte Esterase (Negative) Urine WBC (0-5) /hpf Urine Bacteria (None) /hpf Urine Mucus (None) /hpf Assessment and Plan Plan: -Nausea vomiting diarrhea and abdominal pain: Probably due to gastritis or gastroenteritis. 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 Patient is still comparing of severe area because of which I'll continue the IV fluids today we'll obtain a C. diff testing was a diary improves probably can be discharged tomorrow. If patient's CVP is negative patient will be given Imodium on Questran if patient will be started on Protonix as well as no evidence of bowel obstruction at this time -Complains of dysuria and increased urinary frequency because of which I'm starting her nitrofurantoin point urine analysis is bit abnormal but not really impressive for urinary tract infection. Patient can use nitrofurantoin for total of 5 days. Patient has multiple ALLERGIES -Hypertension -Seizure disorder -CVA TIA in the past -DVT in the past presently not on any anticoagulation
[2019-11-25] MEDS: CHOLESTYRAMINE (WITH SUGAR) 4 GM PACKET PO SCH ×2 (14:20→19:39)
[2019-11-25] MEDS: NITROFURANTOIN MONOHYD/M-CRYST 100 MG CAP PO SCH ×2 (14:23→19:39)
[2019-11-25] MEDS: ALPRAZolam 0.25 MG TAB PO PRN (19:37)
[2019-11-26] MEDS: HYDROmorphone 1 MG/ML 1 ML SYRINGE IVP PRN ×5 (02:00→18:26)
[2019-11-26] MEDS: SODIUM CHLORIDE 0.9% 1,000 ML IV SCH ×2 (06:05→18:26)
[2019-11-26 07:58] LABS: ALT 25 U/L (4-34); AST 34 U/L (14-36); African American GFR (CKD) >90 (>60 ml/min/1.73 sqM); Albumin 2.8 g/dL (3.5-5.0); Alkaline Phosphatase 106 U/L (38-126); Anion Gap 6 mmol/L; Blood Urea Nitrogen <2 mg/dL (7-17); Carbon Dioxide 21 mmol/L (22-30); Chloride 117 mmol/L (98-107); Glucose 98 mg/dL (74-99); Non-African American GFR(CKD) >90 (>60 ml/min/1.73 sqM); Potassium 2.9 mmol/L (3.5-5.1); Sodium 144 mmol/L (137-145); Total Bilirubin 0.3 mg/dL (0.2-1.3); Total Protein 5.4 g/dL (6.3-8.2)
[2019-11-26] MEDS ORDERED: Potassium Replacement Protocol 1 EACH MISC MISCELLANE PRN ×3 (08:38→16:18)
[2019-11-26] MEDS: CHOLESTYRAMINE (WITH SUGAR) 4 GM PACKET PO SCH ×3 (09:18→18:32)
[2019-11-26] MEDS: NITROFURANTOIN MONOHYD/M-CRYST 100 MG CAP PO SCH ×2 (09:20→20:01)
[2019-11-26] MEDS: POTASSIUM CHLORIDE ER 20 MEQ TAB.ER PO SCH ×5 (09:21→20:01)
[2019-11-26 09:34] LABS: HCT 32.2 % (34.0-46.0); HGB 9.8 gm/dL (11.4-16.0); Hypochromasia Marked; MCH 24.4 pg (25.0-35.0); MCHC 30.4 g/dL (31.0-37.0); MCV 80.1 fL (80.0-100.0); Mean Platelet Volume 9.5; Platelet Count 272 k/uL (150-450); Poikilocytosis Moderate; RBC 4.02 m/uL (3.80-5.40); RDW 15.6 % (11.5-15.5); WBC 5.1 k/uL (3.8-10.6)
[2019-11-26] MEDS: PANTOPRAZOLE 40 MG/10 ML VIAL IVP SCH ×2 (10:29→20:01)
[2019-11-26] MEDS: ALPRAZolam 0.25 MG TAB PO PRN ×2 (10:29→20:03)
--- NOTE | 2019-11-26 16:19 | P.PN ---
Progress Note - Text Progress Note Date: 11/26/19 The patient's complaints of abdominal pain and diarrhea. On exam vessels are stable. Abdomen is soft there is mild diffuse tenderness. There is no rebound or guarding. White count is 5.8 hemoglobin was 9.8 Chronic abdominal pain. Patient will be medically managed. No surgical intervention is planned.
[2019-11-26] MEDS ORDERED: HYDROmorphone 0.5 MG/0.5 ML SYRINGE IVP PRN (18:37)
--- NOTE | 2019-11-26 18:52 | P.PN ---
Subjective 64-year-old female past medical history of small bowel obstruction with resection by Dr. Artis on October 06 presents emergency department with reported abdominal pain. Patient states that she began having nausea with vomiting that started last night. Vomiting is nonbilious, nonbloody, patient was also company of diarrhea multiple episodes yesterday and even today she states she had 5 episodes of diarrhea. She reports to right-sided abdominal pain which is sharp and has been getting worse. On Sunday she did note that she had some dark blood in her stool. Earlier today she noted some bright red blood. Denies rectal pain. Admits to chronic diarrhea. She did not attempt to take any medications for her symptoms. She denies any fevers or chills. Also reports to dysuria and increased urinary frequency. States that she has felt like this previously with previous urinary tract infections. Patient currently on any antibiotics. Does have a midline incision which has healed over. No redness, swelling to the skin. No other alleviating, precipitating modifying factors. Patient denied any body aches. Subjective 11/26/2019 Patient was awake and alert, she was getting out of bed and moving with no difficulty, she says that her diarrhea stopped as well as her vomiting however she still complains from abdominal pain with mild generalized tenderness, no rebound tenderness or guarding. Vitals are stable. Labs are stable and un remarkable except for hypokalemia of 2.9, corrected to 3.4 I discussed the case with surgical team, no need for any surgical intervention CT of the abdomen showing large bowel was fluids levels consistent with diarrhea We'll keep monitoring the patient for now and possible discharge in 24-48 hours if improvement Review of systems CONSTITUTIONAL: No fever, no malaise, no fatigue. HEENT: No recent visual problems or hearing problems. Denied any sore throat. CARDIOVASCULAR: No orthopnea, PND, no palpitations, no syncope. PULMONARY: No shortness of breath, no cough, no hemoptysis. NEUROLOGICAL: No headaches, no weakness, no numbness. HEMATOLOGICAL: Denies any bleeding or petechiae. GENITOURINARY: Denies any burning micturition, frequency, or urgency. MUSCULOSKELETAL/RHEUMATOLOGICAL: Denies any joint pain, swelling, or any muscle pain. ENDOCRINE: Denies any polyuria or polydipsia. Active Medications Generic Name Dose Route Start Last Admin Trade Name Freq PRN Reason Stop Dose Admin Alprazolam 0.25 mg 11/25/19 19:10 11/26/19 10:29 Xanax PO 0.25 mg TID PRN Administration Anxiety Cholestyramine Resin 4 gm 11/25/19 15:00 11/26/19 18:32 Questran PO 4 gm TID BETWEEN MEALS URBAN Administration Hydromorphone HCl 0.5 mg 11/26/19 18:45 Dilaudid IVP Q4HR PRN Severe Pain Miscellaneous Information 1 each 11/25/19 11:11 Potassium Per Protocol MISCELLANE DAILY PRN Per Protocol Protocol Miscellaneous Information 1 each 11/25/19 11:11 Potassium Per Protocol MISCELLANE DAILY PRN Per Protocol Protocol Miscellaneous Information 1 each 11/26/19 08:38 Potassium Per Protocol MISCELLANE DAILY PRN Per Protocol Protocol Miscellaneous Information 1 each 11/26/19 16:18 Potassium Per Protocol MISCELLANE DAILY PRN Per Protocol Protocol Naloxone HCl 0.2 mg 11/24/19 23:00 Narcan IV Q2M PRN Opioid Reversal Nitrofurantoin Macrocrystals 100 mg 11/25/19 12:45 11/26/19 09:20 Macrobid PO 100 mg BID URBAN Administration Ondansetron HCl 4 mg 11/24/19 23:00 Zofran IVP Q8HR PRN Nausea And Vomiting Pantoprazole Sodium 40 mg 11/25/19 10:30 11/26/19 10:29 Protonix IVP 40 mg BID URBAN Administration Potassium Chloride 20 meq 11/27/19 09:00 K-Dur 20 PO BID [facility] Objective - Vital Signs Vital signs: Vital Signs Temp 99.5 F 11/26/19 14:48 Pulse 89 11/26/19 14:48 Resp 18 11/26/19 14:48 BP 138/85 11/26/19 14:48 Pulse Ox 99 11/26/19 14:48 Intake & Output 11/25/19 11/26/19 11/26/19 18:59 06:59 18:59 Intake Total 1140 Balance 1140 Intake: Intake, IV Titration 900 Amount Sodium Chloride 0.9% 1, 900 000 ml @ 100 mls/hr IV . Q10H URBAN Rx#:[id number] Oral 240 Other: Voiding Method Toilet Toilet Toilet # Voids 3 # Bowel Movements 2 - Exam GENERAL: The patient is alert and oriented x3, not in any acute distress. Well developed, well nourished. HEENT: Pupils are round and equally reacting to light. EOMI. No scleral icterus. No conjunctival pallor. Normocephalic, atraumatic. No pharyngeal erythema. No th yromegaly. CARDIOVASCULAR: S1 and S2 present. No murmurs, rubs, or gallops. PULMONARY: Chest is clear to auscultation, no wheezing or crackles. -ABDOMEN: Soft, mild generalized tenderness, no rebound tenderness or guarding, nondistended, normoactive bowel sounds. No palpable organomegaly. MUSCULOSKELETAL: No joint swelling or deformity. EXTREMITIES: No cyanosis, clubbing, or pedal edema. NEUROLOGICAL: Gross neurological examination did not reveal any focal deficits. SKIN: No rashes. no petechiae. - Labs CBC & Chem 7: 11/26/19 07:15 11/26/19 14:47 Labs: Abnormal Lab Results - Last 24 Hours (Table) 11/26/19 11/26/19 11/26/19 Range/Units 07:15 07:15 14:47 Hgb 9.8 L (11.4-16.0) gm/dL Hct 32.2 L (34.0-46.0) % MCH 24.4 L (25.0-35.0) pg MCHC 30.4 L (31.0-37.0) g/dL RDW 15.6 H (11.5-15.5) % Potassium 2.9 L 3.4 L (3.5-5.1) mmol/L Chloride 117 H (98-107) mmol/L Carbon Dioxide 21 L (22-30) mmol/L BUN <2 L (7-17) mg/dL Creatinine 0.32 L (0.52-1.04) mg/dL Calcium 8.0 L (8.4-10.2) mg/dL Total Protein 5.4 L (6.3-8.2) g/dL Albumin 2.8 L (3.5-5.0) g/dL Assessment and Plan Assessment: -Nausea vomiting diarrhea and abdominal pain: Probably due to gastritis or gastroenteritis. Patient has acute on chronic chronic diarrhea , improving ea probably gastroenteritis and the CT of the abdomen is consistent with that. Patient is still comparing of severe area because of which I'll continue the IV fluids today we'll obtain a C. diff testing was a diary improves probably can be discharged tomorrow. If patient's CVP is negative patient will be given Imodium on Questran if patient will be started on Protonix as well as no evidence of bowel obstruction at this time -Complains of dysuria and increased urinary frequency because of which I'm starting her nitrofurantoin point urine analysis is bit abnormal but not really impressive for urinary tract infection. Patient can use nitrofurantoin for total of 5 days. Patient has multiple ALLERGIES -Hypertension -Seizure disorder -CVA TIA in the past -DVT in the past presently not on any anticoagulation
[2019-11-26] MEDS: HYDROmorphone 0.5 MG/0.5 ML SYRINGE IVP PRN (22:35)
[2019-11-27] MEDS: HYDROmorphone 0.5 MG/0.5 ML SYRINGE IVP PRN ×2 (02:42→07:26)
[2019-11-27] MEDS: ALPRAZolam 0.25 MG TAB PO PRN ×3 (06:24→21:43)
[2019-11-27] MEDS: POTASSIUM CHLORIDE ER 20 MEQ TAB.ER PO SCH ×2 (07:26→21:36)
[2019-11-27] MEDS: PANTOPRAZOLE 40 MG/10 ML VIAL IVP SCH ×2 (07:26→21:36)
[2019-11-27] MEDS: CHOLESTYRAMINE (WITH SUGAR) 4 GM PACKET PO SCH ×3 (07:27→17:52)
[2019-11-27] MEDS: NITROFURANTOIN MONOHYD/M-CRYST 100 MG CAP PO SCH (07:27)
[2019-11-27 08:33] LABS: African American GFR (CKD) >90 (>60 ml/min/1.73 sqM); Anion Gap 7 mmol/L; Blood Urea Nitrogen <2 mg/dL (7-17); Calcium 8.7 mg/dL (8.4-10.2); Carbon Dioxide 18 mmol/L (22-30); Chloride 118 mmol/L (98-107); Glucose 96 mg/dL (74-99); Magnesium 1.5 mg/dL (1.6-2.3); Non-African American GFR(CKD) >90 (>60 ml/min/1.73 sqM); Sodium 143 mmol/L (137-145)
[2019-11-27 08:34] LABS: Potassium 4.1 mmol/L (3.5-5.1)
[2019-11-27] MEDS ORDERED: POTASSIUM CHLORIDE ER 20 MEQ TAB.ER PO STA (09:12)
--- NOTE | 2019-11-27 09:17 | P.PN ---
Subjective 64-year-old female past medical history of small bowel obstruction with resection by Dr. Artis on October 06 presents emergency department with reported abdominal pain. Patient states that she began having nausea with vomiting that started last night. Vomiting is nonbilious, nonbloody, patient was also company of diarrhea multiple episodes yesterday and even today she states she had 5 episodes of diarrhea. She reports to right-sided abdominal pain which is sharp and has been getting worse. On Sunday she did note that she had some dark blood in her stool. Earlier today she noted some bright red blood. Denies rectal pain. Admits to chronic diarrhea. She did not attempt to take any medications for her symptoms. She denies any fevers or chills. Also reports to dysuria and increased urinary frequency. States that she has felt like this previously with previous urinary tract infections. Patient currently on any antibiotics. Does have a midline incision which has healed over. No redness, swelling to the skin. No other alleviating, precipitating modifying factors. Patient denied any body aches. Subjective 11/26/2019 Patient was awake and alert, she was getting out of bed and moving with no difficulty, she says that her diarrhea stopped as well as her vomiting however she still complains from abdominal pain with mild generalized tenderness, no rebound tenderness or guarding. Vitals are stable. Labs are stable and un remarkable except for hypokalemia of 2.9, corrected to 3.4 I discussed the case with surgical team, no need for any surgical intervention CT of the abdomen showing large bowel was fluids levels consistent with diarrhea We'll keep monitoring the patient for now and possible discharge in 24-48 hours if improvement 11/27/2019 Patient awake and alert, no distress, she still have some abdominal pain, she had 7 bowel movements last night and 6 this morning, no blood in the stool No nausea vomiting and she is tolerating liquid diet and wants her diet to be advanced to regular She had dysuria but symmetric now, she has increased frequency of urination but also she is on IV fluids. Change Dilaudid to [place] 7.5 mg, start Flagyl however patient is ALLERGIC to penicillin and Cipro so we will consult Infectious disease for further recommendations Also patient is on Questran , potassium 4.1, magnesium 1.5, been replaced Objective - Vital Signs Vital signs: Vital Signs Temp 98.5 F 11/27/19 07:00 Pulse 88 07/23/20 07:00 Resp 18 11/27/19 07:00 BP 166/89 11/27/19 07:00 Pulse Ox 100 11/27/19 07:00 Intake & Output 11/26/19 11/27/19 11/27/19 18:59 06:59 18:59 Other: Voiding Method Toilet Toilet # Voids 3 7 # Bowel Movements 4 - Exam GENERAL: The patient is alert and oriented x3, not in any acute distress. Well developed, well nourished. HEENT: Pupils are round and equally reacting to light. EOMI. No scleral icterus. No conjunctival pallor. Normocephalic, atraumatic. No pharyngeal erythema. No thyromegaly. CARDIOVASCULAR: S1 and S2 present. No murmurs, rubs, or gallops. PULMONARY: Chest is clear to auscultation, no wheezing or crackles. -ABDOMEN: Soft, mild generalized tenderness, no rebound tenderness or guarding, nondistended, normoactive bowel sounds. No palpable organomegaly. MUSCULOSKELETAL: No joint swelling or deformity. EXTREMITIES: No cyanosis, clubbing, or pedal edema. NEUROLOGICAL: Gross neurological examination did not reveal any focal deficits. SKIN: No rashes. no petechiae. - Labs CBC & Chem 7: 11/26/19 07:15 11/27/19 07:09 Labs: Abnormal Lab Results - Last 24 Hours (Table) 11/26/19 11/26/19 11/27/19 Range/Units 07:15 14:47 07:09 Hgb 9.8 L (11.4-16.0) gm/dL Hct 32.2 L (34.0-46.0) % MCH 24.4 L (25.0-35.0) pg MCHC 30.4 L (31.0-37.0) g/dL RDW 15.6 H (11.5-15.5) % Potassium 3.4 L (3.5-5.1) mmol/L Chloride 118 H (98-107) mmol/L Carbon Dioxide 18 L (22-30) mmol/L BUN <2 L (7-17) mg/dL Creatinine 0.29 L (0.52-1.04) mg/dL Magnesium 1.5 L (1.6-2.3) mg/dL Assessment and Plan Assessment: -Nausea vomiting diarrhea and abdominal pain: Probably due to gastritis or gastroenteritis. Patient has acute on chronic chronic diarrhea , improving we will call infectious disease consult for choosing antibiotic as she is ALLERGIC to Cipro and penicillin Continue with Questran. Change Dilaudid to Newton 7.5 mg Surgery team on the case -Complains of dysuria and increased urinary frequency because of which I'm starting her nitrofurantoin point urine analysis is bit abnormal but not really impressive for urinary tract infection. Patient can use nitrofurantoin for total of 5 days. Patient has multiple ALLERGIES -Hypertension -Seizure disorder -CVA TIA in the past -DVT in the past presently not on any anticoagulation
[2019-11-27] MEDS: MAGNESIUM SULFATE-D5W PMX 1 GM in DEXTROSE/WATER 1 100ML.BAG IVPB SCH ×2 (09:43→11:15)
[2019-11-27] MEDS: HYDROcodone/APAP 7.5-325MG 1 EACH TAB PO PRN ×2 (11:55→17:52)
[2019-11-27] MEDS: metroNIDAZOLE-NS PMX 500 MG in SALINE 1 100ML.BAG IVPB SCH ×2 (11:56→17:51)
[2019-11-27] MEDS: ONDANSETRON 4 MG/2 ML VIAL IVP PRN (17:52)
--- NOTE | 2019-11-27 19:38 | P.PN ---
Progress Note - Text Progress Note Date: 11/27/19 Patient states she feels better today. She has milder abdominal pain. On exam vital signs are stable. Abdomen soft. Potassium is 4.1. Chronic abdominal pain. No surgical intervention is planned.
[2019-11-27] MEDS ORDERED: Magnesium Replacement Protocol 1 EACH MISC MISCELLANE PRN (23:00)
[2019-11-27] MEDS ORDERED: MAGNESIUM SULFATE-D5W PMX 1 GM in DEXTROSE/WATER 1 100ML.BAG IVPB ONE (23:00)
[2019-11-28] MEDS: HYDROcodone/APAP 7.5-325MG 1 EACH TAB PO PRN ×4 (00:03→19:13)
[2019-11-28] MEDS: metroNIDAZOLE-NS PMX 500 MG in SALINE 1 100ML.BAG IVPB SCH ×2 (00:33→10:09)
[2019-11-28] MEDS: ALPRAZolam 0.25 MG TAB PO PRN ×3 (06:21→21:37)
--- NOTE | 2019-11-28 07:02 | P.CONS ---
History of Present Illness - Reason for Consult Consult date: 11/27/19 Diarrhea and multiple antibiotic ALLERGIES Requesting physician: Patrick E Sheet - Chief Complaint Vomiting diarrhea x few days - History of Present Illness Patient is 64-year-old female who is status post small bowel resection for small bowel obstruction on 10/07/2019 patient was subsequently discharged home presenting back to the ER on 11/24/2019 for evaluation of vomiting and worsening diarrhea, patient says she is having problem with diarrhea since her surgery however has recently got worse with multiple loose stool per day and less so at night patient denies Significant mucus However did have some blood in his stools when she presented to the hospital also complaining of vomiting and unable to keep anything down. There was some pain on the right lower abdominal area more of a shopping nature about 6-7 out of 10 and no radiation patient mentions of some drainage from her abdominal incision however incision is currently healed and the symptom the patient was evaluated by the physician on arrival to the patient has been afebrile and no fever has been recorded over the last 3 days patient also have a normal white count was noticed to have low p otassium that has been replaced cast for C. diff was sent which came back negative she has been treated with the Questran with concern for possible infectious diarrhea Flagyl has been added infection was consulted because of her multiple antibiotic ALLERGY Review of Systems Positive point has been mentioned in the HPI rest of the systems are negative Past Medical History Past Medical History: Cancer, Heart Failure, COPD, CVA/TIA, Deep Vein Thrombosis (DVT), GERD/Reflux, Hypertension, Myocardial Infarction (GA), Neurologic Di sorder, Osteoarthritis (OA), Seizure Disorder Additional Past Medical History / Comment(s): History of bilateral breast cancer, ovarian cancer, uterine cancer, history of CVA back in 1982, history of irregular heart rate possibly atrial fibrillation many years back, history of petit mal seizures, coronary artery disease, previous GA, history of DVT, history of acid reflux, history of COPD, hypertension, osteoarthritis, multiple bowel obstruction requiring previous abdominal surgeries and bowel resection. She also has renal cysts Last Myocardial Infarction Date:: 1997 History of Any Multi-Drug Resistant Organisms: MRSA Year Discovered:: 2003 MDRO Source:: lt hip Past Surgical History: Appendectomy, Back Surgery, Bowel Resection, Breast Surg elena, Cholecystectomy, Hysterectomy, Orthopedic Surgery, Tonsillectomy Additional Past Surgical History / Comment(s): earnest mastectomy, oopherectomy back surgery x5 with last sx cage in back, bowel resection x5-6, earnest. carpal tunnel, lt rotator cuff repair Past Anesthesia/Blood Transfusion Reactions: Previous Problems w/ Anesthesia Additional Past Anesthesia/Blood Transfusion Reaction / Comm: experiences anxiety prior to surgery and agitiation. b/p elevates during surgery. woke up during surgery. difficult IV start Past Psychological History: Anxiety, Depression Smoking Status: Never smoker Past Alcohol Use History: Rare Past Drug Use History: None Reported - Past Family History Mother Family Medical History: Cancer Additional Family Medical History / Comment(s): lung Father Family Medical History: Cancer Additional Family Medical History / Comment(s): prostate Brother(s) Family Medical History: Cancer Additional Family Medical History / Comment(s): lung with metastasis Medications and Allergies Home Medications Medication Instructions Recorded Confirmed Type Metoprolol Succinate (ER) [Toprol 100 mg PO DAILY 08/01/18 11/24/19 History XL] Pantoprazole Sodium [Protonix] 80 mg PO DAILY 08/01/18 11/24/19 History Ibuprofen [Motrin] 600 mg PO AC-TID PRN 10/06/19 11/24/19 History Lidocaine 5% Oint [Xylocaine 5% 1 applic TOPICAL DAILY PRN 10/06/19 11/24/19 History Oint] Naratriptan HCl 2.5 mg PO DAILY PRN 10/06/19 11/24/19 History traMADol HCL 100 mg PO Q6H PRN 10/06/19 11/24/19 History Docusate [Colace] 100 mg PO BID #20 capsule 10/16/19 11/24/19 Rx diazePAM [Valium] 5 mg VAGINAL TID PRN 11/24/19 11/24/19 History Allergies Allergy/AdvReac Type Severity Reaction Status Date / Time carbamazepine [From Tegretol] Allergy increases Verified 11/24/19 22:37 seizures ciprofloxacin [From Cipro] Allergy Unknown Verified 11/24/19 22:37 clindamycin Allergy Nausea & Verified 11/24/19 22:37 Vomiting doxycycline Allergy Unknown Verified 11/24/19 22:37 morphine Allergy Rash/Hives Verified 11/24/19 22:37 Penicillins Allergy Anaphylaxis Verified 11/24/19 22:37 phenobarbital Allergy Rash/Hives Verified 11/24/19 22:37 phenytoin [From Dilantin] Allergy Anaphylaxis Verified 11/24/19 22:37 Physical Exam Vitals: Vital Signs Temp Pulse Resp BP Pulse Ox 11/28/19 03:47 16 11/28/19 01:51 98.5 F 86 137/71 96 11/28/19 00:20 16 11/27/19 19:40 73 18 11/27/19 18:34 98.1 F 73 132/72 99 11/27/19 14:52 98.1 F 99 18 128/73 97 11/27/19 07:00 98.5 F 88 18 166/89 100 Intake and Output 11/27/19 11/27/19 11/28/19 14:59 22:59 06:59 Other: Voiding Method Toilet # Voids 4 GENERAL DESCRIPTION: An elderly female lying in bed, no distress. No tachypnea or accessory muscle of respiration use. HEENT: Shows Pallor , no scleral icterus. Oral mucous membrane is dry. No pharyngeal erythema or thrush NECK: Trachea central, no thyromegaly. LUNGS: Unlabored breathing. Clear to auscultation anteriorly. No wheeze or crackle. HEART: S1, S2, regular rate and rhythm. No loud murmur ABDOMEN: Soft, no tenderness , guarding or rigidity, no organomegaly EXTREMITIES: No edema of feet. SKIN: No rash, no masses palpable. NEUROLOGICAL: The patient is awake, alert, oriented x3, mood and affect normal. Results CBC & Chem 7: 11/26/19 07:15 11/27/19 07:09 Labs: Abnormal Lab Results - Last 24 Hours (Table) 11/27/19 Range/Units 07:09 Chloride 118 H (98-107) mmol/L Carbon Dioxide 18 L (22-30) mmol/L BUN <2 L (7-17) mg/dL Creatinine 0.29 L (0.52-1.04) mg/dL Magnesium 1.5 L (1.6-2.3) mg/dL Assessment and Plan Assessment: 1- patient presented to hospital with nausea vomiting and diarrhea that she do have history of chronic diarrhea in this patient with recent small bowel resection for small bowel obstruction CT of abdominal pelvis did not show any acute findings or evidence of colitis and the patient has no fever or elevated white count with a question of possible infectious diarrhea history. Has been negative 2- Patient with multiple antibiotic ALLERGIES that would limit the number of an tibiotic safe to use (1) Allergy to multiple antibiotics Current Visit: Yes Status: Acute Code(s): Z88.1 - ALLERGY STATUS TO OTHER ANTIBIOTIC AGENTS STATUS SNOMED Code(s): 199271354 (2) Diarrhea Current Visit: Yes Status: Acute Code(s): R19.7 - DIARRHEA, UNSPECIFIED S NOMED Code(s): 38443508 Plan: 1- we will obtain stool cultures 2- agree with starting the patient on Flagyl 500 every 8 hours 3- a stool culture negative and diarrhea persist may consider adding Lomotil We will follow on clinical condition and cultures to further adjust medication if needed Thank you for this consultation will follow this patient with you Time with Patient: Greater than 30
[2019-11-28] MEDS: POTASSIUM CHLORIDE ER 20 MEQ TAB.ER PO SCH ×2 (08:48→21:37)
[2019-11-28 08:56] LABS: African American GFR (CKD) >90 (>60 ml/min/1.73 sqM); Anion Gap 10 mmol/L; Blood Urea Nitrogen 2 mg/dL (7-17); Calcium 8.6 mg/dL (8.4-10.2); Carbon Dioxide 15 mmol/L (22-30); Chloride 116 mmol/L (98-107); Glucose 103 mg/dL (74-99); Magnesium 2.6 mg/dL (1.6-2.3); Non-African American GFR(CKD) >90 (>60 ml/min/1.73 sqM); Sodium 141 mmol/L (137-145)
[2019-11-28 09:04] LABS: Potassium 3.7 mmol/L (3.5-5.1)
--- NOTE | 2019-11-28 09:48 | P.PN ---
Subjective 64-year-old female past medical history of small bowel obstruction with resection by Dr. Artis on October 06 presents emergency department with reported abdominal pain. Patient states that she began having nausea with vomiting that started last night. Vomiting is nonbilious, nonbloody, patient was also company of diarrhea multiple episodes yesterday and even today she states she had 5 episodes of diarrhea. She reports to right-sided abdominal pain which is sharp and has been getting worse. On Sunday she did note that she had some dark blood in her stool. Earlier today she noted some bright red blood. Denies rectal pain. Admits to chronic diarrhea. She did not attempt to take any medications for her symptoms. She denies any fevers or chills. Also reports to dysuria and increased urinary frequency. States that she has felt like this previously with previous urinary tract infections. Patient currently on any antibiotics. Does have a midline incision which has healed over. No redness, swelling to the skin. No other alleviating, precipitating modifying factors. Patient denied any body aches. Subjective 11/26/2019 Patient was awake and alert, she was getting out of bed and moving with no difficulty, she says that her diarrhea stopped as well as her vomiting however she still complains from abdominal pain with mild generalized tenderness, no rebound tenderness or guarding. Vitals are stable. Labs are stable and un remarkable except for hypokalemia of 2.9, corrected to 3.4 I discussed the case with surgical team, no need for any surgical intervention CT of the abdomen showing large bowel was fluids levels consistent with diarrhea We'll keep monitoring the patient for now and possible discharge in 24-48 hours if improvement 11/27/2019 Patient awake and alert, no distress, she still have some abdominal pain, she had 7 bowel movements last night and 6 this morning, no blood in the stool No nausea vomiting and she is tolerating liquid diet and wants her diet to be advanced to regular She had dysuria but symmetric now, she has increased frequency of urination but also she is on IV fluids. Change Dilaudid to [place] 7.5 mg, start Flagyl however patient is ALLERGIC to penicillin and Cipro so we will consult Infectious disease for further recommendations Also patient is on Questran , potassium 4.1, magnesium 1.5, been replaced 11/28/2019 Patient is awake and alert, she is pleasant and smiling. She still complaining of from diarrhea about 7 times yesterday and 4 times since morning today. No blood, she has chronic abdominal pain since surgery which goes up at times however currently her pain is controlled at the same level as before. She has some nausea and vomited once yesterday. However she is able to eat and drink, she thinks she vomited yesterday because she over ate Patient remains on Flagyl, no IV fluids. Stool culture is pending per ID recommendation. Vitals stable. Today potassium 3.7 and she was placed on 20 mEq twice a day. Magnesium is 2.6 Patient was asking if she can go home as she wants to be discharged however she will wait for the surgery and infectious disease service recommendation Objective - Vital Signs Vital signs: Vital Signs Temp 97.9 F 11/28/19 07:00 Pulse 95 11/28/19 07:00 Resp 17 11/28/19 07:00 BP 154/73 11/28/19 07:00 Pulse Ox 99 11/28/19 07:00 Intake & Output 11/27/19 11/28/19 11/28/19 18:59 06:59 18:59 Other: Voiding Method Toilet # Voids 4 - Exam GENERAL: The patient is alert and oriented x3, not in any acute distress. Well developed, well nourished. HEENT: Pupils are round and equally reacting to light. EOMI. No scleral icterus. No conjunctival pallor. Normocephalic, atraumatic. No pharyngeal erythema. No thyromegaly. CARDIOVASCULAR: S1 and S2 present. No murmurs, rubs, or gallops. PULMONARY: Chest is clear to auscultation, no wheezing or crackles. -ABDOMEN: Soft, mild generalized tenderness, no rebound tenderness or guarding, nondistended, normoactive bowel sounds. No palpable organomegaly. MUSCULOSKELETAL: No joint swelling or deformity. EXTREMITIES: No cyanosis, clubbing, or pedal edema. NEUROLOGICAL: Gross neurological examination did not reveal any focal deficits. SKIN: No rashes. no petechiae. - Labs CBC & Chem 7: 11/26/19 07:15 11/28/19 07:26 Labs: Abnormal Lab Results - Last 24 Hours (Table) 11/28/19 Range/Units 07: Chloride 116 H (98-107) mmol/L Carbon Dioxide 15 L (22-30) mmol/L BUN 2 L (7-17) mg/dL Creatinine 0.34 L (0.52-1.04) mg/dL Glucose 103 H (74-99) mg/dL Magnesium 2.6 H (1.6-2.3) mg/dL Assessment and Plan Assessment: -Nausea vomiting diarrhea and abdominal pain: Probably due to gastritis or gastroenteritis. Patient has acute on chronic chronic diarrhea , improving we will call infectious disease consult for choosing antibiotic as she is ALLERGIC to Cipro and penicillin Continue with Questran. Change Dilaudid to [place] 7.5 mg Surgery team on the case -Complains of dysuria and increased urinary frequency because of which I'm starting her nitrofurantoin point urine analysis is bit abnormal but not really impressive for urinary tract infection. Patient can use nitrofurantoin for total of 5 days. Patient has multiple ALLERGIES -Hypertension -Seizure disorder -CVA TIA in the past -DVT in the past presently not on any anticoagulation
[2019-11-28] MEDS: PANTOPRAZOLE 40 MG/10 ML VIAL IVP SCH (10:09)
[2019-11-28] MEDS: CHOLESTYRAMINE (WITH SUGAR) 4 GM PACKET PO SCH (11:37)
[2019-11-28] MEDS: metroNIDAZOLE 500 MG TAB PO SCH ×3 (11:37→21:37)
--- NOTE | 2019-11-28 12:03 | P.PN ---
Progress Note - Text Progress Note Date: 11/28/19 Patient remains stable. She still has some complaints of abdominal pain. On exam vital signs are stable. Abdomen soft. Incision is clean dry intact. Chronic abdominal pain and diarrhea related to shortened small bowel. Patient will be medically managed. There is no surgical intervention planned.
[2019-11-28 12:08] VITALS: BMI 23.3
--- NOTE | 2019-11-28 15:37 | PN ---
PROGRESS NOTE DATE OF SERVICE: 11/28/2019 REASON FOR FOLLOWUP: Diarrhea with question of infectious diarrhea. INTERVAL HISTORY: Patient is currently afebrile. The patient did have some nausea but no vomiting. She did eat a regular diet per the nursing staff. However, the patient is complaining of diarrhea about 9 episodes this morning with no blood or mucus in the stool. No abdominal pain. PHYSICAL EXAMINATION: Blood pressure 154/73 with a pulse 95, temperature 98.9. she is 99% on room air. General description is an elderly female, lying in bed in no distress. RESPIRATORY SYSTEM: Unlabored breathing, clear to auscultation anteriorly. HEART S1, S2. Regular rate and rhythm. ABDOMEN: Soft, no tenderness. LAB: Data BUN of 2, creatinine 0.34. Stool culture pending. DIAGNOSTIC IMPRESSION AND PLAN: Patient admitted to the hospital with nausea, vomiting, diarrhea with question of gastroenteritis, questionably while worsened bacteria. Cultures are currently pending. The patient is still complaining of significant diarrhea. We will discontinue the Questran, add Pepto-Bismol. Waiting for the stool culture to finalize. Continue supportive care. MMODL / IJN: [id number] /
[2019-11-28] MEDS: BISMUTH SUBSALICYLATE 4,192 MG/240 ML BOTTLE PO SCH ×2 (16:18→19:13)
[2019-11-28] MEDS: PANTOPRAZOLE 40 MG TABLET PO SCH (16:18)
[2019-11-29] MEDS ORDERED: ACETAMINOPHEN TAB 325 MG TAB PO PRN (00:14)
[2019-11-29] MEDS: BISMUTH SUBSALICYLATE 4,192 MG/240 ML BOTTLE PO SCH ×5 (00:21→23:00)
[2019-11-29 01:20] LABS: Appearance,Urine Clear (Clear); Bacteria,Urine Few /hpf; Bilirubin,Urine Negative (Negative); Blood,Urine Trace (Negative); Color,Urine Yellow; Glucose,Urine (UA) Negative (Negative); Ketones,Urine Negative (Negative); Leukocyte Esterase,Urine Small (Negative); Mucus,Urine Rare /hpf; Nitrite,Urine Negative (Negative); PH, Urine 6.5 (5.0-8.0); Protein,Urine Negative (Negative); RBC,Urine 1 /hpf (0-5); Specific Gravity,Urine 1.007 (1.001-1.035); Squamous Epithelial Cell,Urine <1 /hpf (0-4); Urobilinogen,Urine <2.0 mg/dL (<2.0); WBC,Urine 7 /hpf (0-5)
[2019-11-29] MEDS: HYDROcodone/APAP 7.5-325MG 1 EACH TAB PO PRN ×4 (01:25→22:39)
[2019-11-29] MEDS: ALPRAZolam 0.25 MG TAB PO PRN ×3 (08:18→22:48)
[2019-11-29] MEDS: PANTOPRAZOLE 40 MG TABLET PO SCH ×2 (08:18→17:05)
[2019-11-29] MEDS: POTASSIUM CHLORIDE ER 20 MEQ TAB.ER PO SCH ×3 (08:18→21:33)
[2019-11-29] MEDS: metroNIDAZOLE 500 MG TAB PO SCH ×3 (08:18→21:33)
[2019-11-29 10:07] LABS: African American GFR (CKD) >90 (>60 ml/min/1.73 sqM); Anion Gap 7 mmol/L; Blood Urea Nitrogen 6 mg/dL (7-17); Calcium 8.4 mg/dL (8.4-10.2); Carbon Dioxide 21 mmol/L (22-30); Chloride 112 mmol/L (98-107); Glucose 101 mg/dL (74-99); Magnesium 2.1 mg/dL (1.6-2.3); Non-African American GFR(CKD) >90 (>60 ml/min/1.73 sqM); Potassium 2.9 mmol/L (3.5-5.1); Sodium 140 mmol/L (137-145)
[2019-11-29] MEDS ORDERED: POTASSIUM CHLORIDE ER 20 MEQ TAB.ER PO ONE (13:00)
[2019-11-29] MEDS ORDERED: CEFEPIME 2 GM in SODIUM CHLORIDE 0.9% 100 ML IVPB SCH (15:00)
[2019-11-29] MEDS ORDERED: POTASSIUM CHLORIDE ER 20 MEQ TAB.ER PO STA (18:23)
[2019-11-29] MEDS: IOPAMIDOL CONTRAST (ORAL USE) VIAL PO PRN ×2 (20:39→21:33)
[2019-11-29] MEDS: CEFEPIME 2 GM in SODIUM CHLORIDE 0.9% 100 ML IVPB SCH (20:39)
[2019-11-29] MEDS: ONDANSETRON 4 MG/2 ML VIAL IVP PRN (20:48)
--- NOTE | 2019-11-29 21:25 | P.PN ---
Subjective 64-year-old female past medical history of small bowel obstruction with resection by Dr. Artis on October 06 presents emergency department with reported abdominal pain. Patient states that she began having nausea with vomiting that started last night. Vomiting is nonbilious, nonbloody, patient was also company of diarrhea multiple episodes yesterday and even today she states she had 5 episodes of diarrhea. She reports to right-sided abdominal pain which is sharp and has been getting worse. On Sunday she did note that she had some dark blood in her stool. Earlier today she noted some bright red blood. Denies rectal pain. Admits to chronic diarrhea. She did not attempt to take any medications for her symptoms. She denies any fevers or chills. Also reports to dysuria and increased urinary frequency. States that she has felt like this previously with previous urinary tract infections. Patient currently on any antibiotics. Does have a midline incision which has healed over. No redness, swelling to the skin. No other alleviating, precipitating modifying factors. Patient denied any body aches. Subjective 11/26/2019 Patient was awake and alert, she was getting out of bed and moving with no difficulty, she says that her diarrhea stopped as well as her vomiting however she still complains from abdominal pain with mild generalized tenderness, no rebound tenderness or guarding. Vitals are stable. Labs are stable and un remarkable except for hypokalemia of 2.9, corrected to 3.4 I discussed the case with surgical team, no need for any surgical intervention CT of the abdomen showing large bowel was fluids levels consistent with diarrhea We'll keep monitoring the patient for now and possible discharge in 24-48 hours if improvement 11/27/2019 Patient awake and alert, no distress, she still have some abdominal pain, she had 7 bowel movements last night and 6 this morning, no blood in the stool No nausea vomiting and she is tolerating liquid diet and wants her diet to be advanced to regular She had dysuria but symmetric now, she has increased frequency of urination but also she is on IV fluids. Change Dilaudid to [place] 7.5 mg, start Flagyl however patient is ALLERGIC to penicillin and Cipro so we will consult Infectious disease for further recommendations Also patient is on Questran , potassium 4.1, magnesium 1.5, been replaced 11/28/2019 Patient is awake and alert, she is pleasant and smiling. She still complaining of from diarrhea about 7 times yesterday and 4 times since morning today. No blood, she has chronic abdominal pain since surgery which goes up at times however currently her pain is controlled at the same level as before. She has some nausea and vomited once yesterday. However she is able to eat and drink, she thinks she vomited yesterday because she over ate Patient remains on Flagyl, no IV fluids. Stool culture is pending per ID recommendation. Vitals stable. Today potassium 3.7 and she was placed on 20 mEq twice a day. Magnesium is 2.6 Patient was asking if she can go home as she wants to be discharged however she will wait for the surgery and infectious disease service recommendation 11/29/2019 Patient remains awake, active and moving freely, she still have abdominal pain and tenderness since she had surgery last time however last that she has frequent diarrhea and this morning she has 6 more bouts total afternoon. Her potassium was low this morning at 2.9 however magnesium was normal. Potassium was corrected with oral supplement and repeat potassium 3.6 Patient spiked fever 103 and cefepime was added by ID team on the top of Flagyl. Patient lost her IV In her right foot today, several attempts were unsuccessful throughout the day however eventually IV line could be secured in the left arm. Objective - Vital Signs Vital signs: Vital Signs Temp 98.3 F 11/29/19 15:00 Pulse 81 11/29/19 16:00 Resp 19 11/29/19 16:00 BP 122/71 11/29/19 15:00 Pulse Ox 98 11/29/19 15:00 Intake & Output 11/29/19 11/29/19 11/30/19 06:59 18:59 06:59 Other: Voiding Method Toilet Toilet # Voids 2 - Exam GENERAL: The patient is alert and oriented x3, not in any acute distress. Well developed, well nourished. HEENT: Pupils are round and equally reacting to light. EOMI. No scleral icterus. No conjunctival pallor. Normocephalic, atraumatic. No pharyngeal erythema. No thyromegaly. CARDIOVASCULAR: S1 and S2 present. No murmurs, rubs, or gallops. PULMONARY: Chest is clear to auscultation, no wheezing or crackles. -ABDOMEN: Soft, mild generalized tenderness, no rebound tenderness or guarding, nondistended, normoactive bowel sounds. No palpable organomegaly. MUSCULOSKELETAL: No joint swelling or deformity. EXTREMITIES: No cyanosis, clubbing, or pedal edema. NEUROLOGICAL: Gross neurological examination did not reveal any focal deficits. SKIN: No rashes. no petechiae. - Labs CBC & Chem 7: 11/26/19 07:15 11/29/19 14:49 Labs: Abnormal Lab Results - Last 24 Hours (Table) 11/29/19 11/29/19 Range/Units 00:37 09:34 Potassium 2.9 L (3.5-5.1) mmol/L Chloride 112 H (98-107) mmol/L Carbon Dioxide 21 L (22-30) mmol/L BUN 6 L (7-17) mg/dL Creatinine 0.36 L (0.52-1.04) mg/dL Glucose 101 H (74-99) mg/dL Urine Blood Trace H (Negative) Ur Leukocyte Esterase Small H (Negative) Urine WBC 7 H (0-5) /hpf Urine Bacteria Few H (None) /hpf Urine Mucus Rare H (None) /hpf Assessment and Plan Assessment: -Nausea vomiting diarrhea and abdominal pain: Probably due to gastritis or gastroenteritis. improving we will call infectious disease consult for choosing antibiotic as she is ALLERGIC to Cipro and penicillin Continue with Pepto-Bismol and stop Questran. Patient currently on cefepime and Flagyl Change Dilaudid to [place] 7.5 mg Surgery team on the case -Complains of dysuria, possible UTI. Patient is on antibiotic -Hyperkalemia and hypomagnesemia, replaced -Hypertension -Seizure disorder -CVA TIA in the past -DVT in the past presently not on any anticoagulation DVT prophylaxis: Subcutaneous heparin GI prophylaxis: Protonix
[2019-11-29] MEDS: HEPARIN SODIUM,PORCINE 5,000 UNIT/ML 1 ML VIAL SQ SCH (21:42)
--- NOTE | 2019-11-29 22:40 | CT ---
EXAMINATION TYPE: CT abdomen pelvis w con DATE OF EXAM: 11/29/2019 COMPARISON: 11/24/2019 HISTORY: Fever and abdominal pain. CT DLP: 410.9 mGycm Automated exposure control for dose reduction was used. CONTRAST: Performed with IV Contrast, patient injected with 100 mL of Isovue 300. There is oral contrast. Lung bases are clear of consolidation. There is no pleural effusion. Heart size is fairly normal. The re is calcification around the left breast implant. There is no pericardial effusion. There is diffus e fatty infiltration of the liver. There is clips from cholecystectomy. Common bile duct is 13 mm. In trahepatic bile ducts are not dilated. Spleen appears normal. There is no pancreatic mass. The stomac h is intact. There is no adrenal mass. Kidneys show satisfactory contrast opacification. There is no hydronephrosis. There is 2 cm cortical cyst lateral right kidney. There is normal renal excretion int o the ureters. Ureters are not dilated. There is no retroperitoneal adenopathy. Bladder distends smoo thly. There is no inguinal hernia. There is no free fluid in the pelvis. There is no evidence of a pe lvic mass. There is no mesenteric edema. There is no ascites or free air. There is increased density on the anterior abdominal wall consistent with postsurgical changes. There is intestinal surgery in t he lower mid abdomen. I see no sign of a bowel obstruction. There is oral contrast material extending to the rectum. There is posterior fusion surgery from L4 to S1. Lumbar vertebra have fairly normal alignment. There is no compression fracture. The bony pelvis appears intact. There is laminectomy defect in the lower lumbar spine. I see no pathologic intra-abdominal fluid collection. IMPRESSION: Postsurgical changes in the lower abdomen. No evidence of an abscess. No evidence of bowel obstructio n. Fatty infiltration of the liver. Abdomen and pelvis appear not significantly different than recent exam.
--- NOTE | 2019-11-29 22:47 | PN ---
PROGRESS NOTE DATE OF SERVICE: 11/29/2019 REASON FOR FOLLOWUP: Fever and diarrhea. INTERVAL HISTORY: The patient did have a fever of 103 Fahrenheit. The patient is afebrile since then. The patient has been complaining of pain to the left lower abdominal area, more of a dull aching to sharp 6 to 7/10 and no radiation. Some nausea but no vomiting. She did have diarrhea, however, frequency has decreased. No blood or mucus in the stool. REVIEW OF SYSTEMS: Positive points have been mentioned HPI. Rest of systems negative. PAST MEDICAL HISTORY/SURGICAL HISTORY: Reviewed. Medication reviewed. PHYSICAL EXAMINATION: Blood pressure 122/75 with a pulse of 80, temperature 98.3. He is 98% on room air. General description: The patient is an elderly female lying in bed in no distress. Respiratory system: Unlabored breathing, clear to auscultation anteriorly. Heart S1, S2. Regular rate and rhythm. Abdomen soft. She is tender left upper quadrant area. No guarding. No rigidity. LABS: No CBC was done today. Blood cultures have been drawn, currently pending. Stool culture so far negative. DIAGNOSTIC IMPRESSION AND PLAN: Patient with admission to the hospital with intractable nausea, vomiting and diarrhea with concern for possible infectious, and non infectious colitis. Stool culture so far negative. Stool for C dif were negative. The patient now does have a new fever and did have tenderness on abdominal examination. CT abdominal and pelvis has been ordered. The patient does have MULTIPLE ANTIBIOTIC ALLERGIES, however, tolerated Keflex. We will add cefepime 2 grams q.8 and continue Flagyl. Adjust antibiotic further based on the culture report. Continue supportive care. MMODL / IJN: [id number] /
[2019-11-30] MEDS: ALPRAZolam 0.25 MG TAB PO PRN ×2 (05:48→13:40)
[2019-11-30] MEDS: BISMUTH SUBSALICYLATE 4,192 MG/240 ML BOTTLE PO SCH ×4 (05:48→22:00)
[2019-11-30] MEDS: HYDROcodone/APAP 7.5-325MG 1 EACH TAB PO PRN ×3 (05:48→20:54)
[2019-11-30] MEDS: ONDANSETRON 4 MG/2 ML VIAL IVP PRN ×2 (07:43→18:21)
[2019-11-30] MEDS: metroNIDAZOLE 500 MG TAB PO SCH ×3 (07:51→20:54)
[2019-11-30] MEDS: CEFEPIME 2 GM in SODIUM CHLORIDE 0.9% 100 ML IVPB SCH ×2 (07:51→20:53)
[2019-11-30] MEDS: POTASSIUM CHLORIDE ER 20 MEQ TAB.ER PO SCH ×2 (07:51→20:54)
[2019-11-30] MEDS: PANTOPRAZOLE 40 MG TABLET PO SCH ×2 (07:51→15:58)
[2019-11-30] MEDS: HEPARIN SODIUM,PORCINE 5,000 UNIT/ML 1 ML VIAL SQ SCH ×2 (07:51→20:54)
--- NOTE | 2019-11-30 11:47 | P.PN ---
Subjective Progress Note Date: 11/30/19 CHIEF COMPLAINT: Abdominal pain HISTORY OF PRESENT ILLNESS: The patient is a 64-year-old female status post exploratory laparotomy 10/07/19 for small bowel obstruction including incisional hernia repair, small bowel resection and lysis of adhesions almost 2 months ago. Yesterday, she had complaints of left upper quadrant abdominal pain. Also, she had loss of IV access now present today. She has chronic electrolyte dyscrasias for low potassium and magnesium. She reports at least 9 bowel movements since this morning, last 6 hrs. 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 Additional diagnostic studies were obtained of CT abdomen and pelvis. ROS: No reports of nausea and vomiting. No new chest pain. No productive sputum PHYSICAL EXAM: VITAL SIGNS: Reviewed CONSTITUTIONAL: Well developed and in no acute distress. EYES: Conjuctivae without sclera icterus. Extraocular movements grossly intact. HEAD, EARS, NOSE, THROAT: Moist buccal mucosa. Head is atraumatic, normocephalic. Hears conversational speech. No nasal drainage. NECK: Supple. No thyroidomegaly. RESPIRATORY: Non-labored respirations and equal bilateral excursions. CARDIOVASCULAR: Palpable 2+ radial pulses. Regular rate. Regular rhythm. ABDOMEN: Well healed mid-line incision. No cellulitis. Mild tenderness left upper quadrant. No peritonitis. Multiple abdominal scars including right upper quadrant from prior cholecystectomy. MUSCULOSKELETAL: No gross deformity of the lower extremities noted. No clubbing. No cyanosis. SKIN: Good skin turgor. Well perfused. NEUROLOGIC: Cranial nerves II through XII grossly intact. No focal or lateralizing signs. PSYCH: Appropriate affect. Alert and oriented to person, place and time. CLINICAL LABS: White blood cell count normal, no new CBC from 11/26/2019 STUDIES: CT of the abdomen and pelvis independently reviewed with post-op changes of the abdominal wall. No large intra-abdominal fluid collections noted. No signs of bowel obstruction. ASSESSMENT: 1. Short gut syndrome. PLAN: 1. Recommend GI consultation for management of short gut syndrome. 2. She reports having multiple prior IV access such as PICC lines and central lines. May benefit from additional permanent access device. Objective - Vital Signs Vital signs: Vital Signs Temp 97.9 F 11/30/19 07:00 Pulse 84 07/26/20 08:00 Resp 19 11/30/19 08:00 BP 115/75 11/30/19 07:00 Pulse Ox 99 11/30/19 07:00 Intake & Output 11/29/19 11/30/19 11/30/19 18:59 06:59 18:59 Other: Voiding Method Toilet Toilet # Voids 2 1 # Bowel Movements 2 - Labs CBC & Chem 7: 11/26/19 07:15 11/30/19 11:43 Labs: Microbiology - Last 24 Hours (Table) 11/27/19 15:45 Stool Culture - Preliminary Stool 11/29/19 00:33 Blood Culture - Preliminary Blood No Growth after 24 hours Assessment and Plan (1) Short intestine syndrome Current Visit: Yes Status: Acute Code(s): K91.2 - POSTSURGICAL MALABSORPTION, NOT ELSEWHERE CLASSIFIED SNOMED Code(s): 15404165 (2) Diarrhea Current Visit: Yes Status: Acute Code(s): R19.7 - DIARRHEA, UNSPECIFIED SNOMED Code(s): 59991816 (3) Weakness Current Visit: Yes Status: Acute Code(s): R53.1 - WEAKNESS SNOMED Code(s): 72839167
--- NOTE | 2019-11-30 15:19 | P.PN ---
Subjective 64-year-old female past medical history of small bowel obstruction with resection by Dr. Artis on October 06 presents emergency department with reported abdominal pain. Patient states that she began having nausea with vomiting that started last night. Vomiting is nonbilious, nonbloody, patient was also company of diarrhea multiple episodes yesterday and even today she states she had 5 episodes of diarrhea. She reports to right-sided abdominal pain which is sharp and has been getting worse. On Sunday she did note that she had some dark blood in her stool. Earlier today she noted some bright red blood. Denies rectal pain. Admits to chronic diarrhea. She did not attempt to take any medications for her symptoms. She denies any fevers or chills. Also reports to dysuria and increased urinary frequency. States that she has felt like this previously with previous urinary tract infections. Patient currently on any antibiotics. Does have a midline incision which has healed over. No redness, swelling to the skin. No other alleviating, precipitating modifying factors. Patient denied any body aches. Subjective 11/26/2019 Patient was awake and alert, she was getting out of bed and moving with no difficulty, she says that her diarrhea stopped as well as her vomiting however she still complains from abdominal pain with mild generalized tenderness, no rebound tenderness or guarding. Vitals are stable. Labs are stable and un remarkable except for hypokalemia of 2.9, corrected to 3.4 I discussed the case with surgical team, no need for any surgical intervention CT of the abdomen showing large bowel was fluids levels consistent with diarrhea We'll keep monitoring the patient for now and possible discharge in 24-48 hours if improvement 11/27/2019 Patient awake and alert, no distress, she still have some abdominal pain, she had 7 bowel movements last night and 6 this morning, no blood in the stool No nausea vomiting and she is tolerating liquid diet and wants her diet to be advanced to regular She had dysuria but symmetric now, she has increased frequency of urination but also she is on IV fluids. Change Dilaudid to [place] 7.5 mg, start Flagyl however patient is ALLERGIC to penicillin and Cipro so we will consult Infectious disease for further recommendations Also patient is on Questran , potassium 4.1, magnesium 1.5, been replaced 11/28/2019 Patient is awake and alert, she is pleasant and smiling. She still complaining of from diarrhea about 7 times yesterday and 4 times since morning today. No blood, she has chronic abdominal pain since surgery which goes up at times however currently her pain is controlled at the same level as before. She has some nausea and vomited once yesterday. However she is able to eat and drink, she thinks she vomited yesterday because she over ate Patient remains on Flagyl, no IV fluids. Stool culture is pending per ID recommendation. Vitals stable. Today potassium 3.7 and she was placed on 20 mEq twice a day. Magnesium is 2.6 Patient was asking if she can go home as she wants to be discharged however she will wait for the surgery and infectious disease service recommendation 11/29/2019 Patient remains awake, active and moving freely, she still have abdominal pain and tenderness since she had surgery last time however last that she has frequent diarrhea and this morning she has 6 more bouts total afternoon. Her potassium was low this morning at 2.9 however magnesium was normal. Potassium was corrected with oral supplement and repeat potassium 3.6 Patient spiked fever 103 and cefepime was added by ID team on the top of Flagyl. Patient lost her IV In her right foot today, several attempts were unsuccessful throughout the day however eventually IV line could be secured in the left arm. 11/30/2019 Patient still have diarrhea and she vomited once, she had 7 bouts of diarrhea since morning, no blood, abdominal pain is the same. sHe said they had fever yesterday and she was started on cefepime by ID team. IV line could be secured yesterday and patient is started on IV medication and replacement therapy. Vitals are stable. Stool culture primarily showing no growth for Salmonella and Shigella or E. coli. Today potassium is 4.5 Blood culture is negative Patient was a little anxious and feeling depressed endocrine however she denies suicidal or homicidal ideation, emotional support is provided for the patient, increased and ask 0.25 3 times a day to 0.5 mg 3 times a day Objective - Vital Signs Vital signs: Vital Signs Temp 98.0 F 11/30/19 15:00 Pulse 83 11/30/19 15:00 Resp 17 11/30/19 15:00 BP 128/81 11/30/19 15:00 Pulse Ox 99 11/30/19 15:00 Intake & Output 11/29/19 11/30/19 11/30/19 18:59 06:59 18:59 Intake Total 540 Balance 540 Intake: Oral 540 Other: Voiding Method Toilet Toilet # Voids 2 1 3 # Bowel Movements 2 7 - Labs CBC & Chem 7: 11/26/19 07:15 11/30/19 11:43 Labs: Microbiology - Last 24 Hours (Table) 11/27/19 15:45 Stool Culture - Preliminary Stool 11/29/19 00:33 Blood Culture - Preliminary Blood No Growth after 24 hours Assessment and Plan Assessment: -Nausea vomiting diarrhea and abdominal pain: Probably due to gastritis or gastroenteritis. Still has diarrhea. Patient is currently on Flagyl and cefepime as per ID team Continue with Pepto-Bismol and stop Questran. Patient was instructed to bring her on Pepto-Bismol is from home as is not available on the hospital currently. -Complains of dysuria, possible UTI. Patient is on antibiotic -Hyperkalemia and hypomagnesemia, replaced -Hypertension -Seizure disorder -CVA TIA in the past -DVT in the past presently not on any anticoagulation DVT prophylaxis: Subcutaneous heparin GI prophylaxis: Protonix
[2019-11-30] MEDS: ALPRAZolam 0.5 MG TAB PO PRN (20:55)
--- NOTE | 2019-11-30 22:30 | PN ---
PROGRESS NOTE DATE OF SERVICE: 11/30/2019 REASON FOR FOLLOWUP: Diarrhea and a question of colitis. INTERVAL HISTORY: Patient is afebrile. The patient is breathing comfortably. Denies having any chest pain. No shortness of breath or cough. Still complaining of significant diarrhea with multiple loose stools. No blood or mucus in the stool. PHYSICAL EXAMINATION: Blood pressure 120/81 with a pulse of 83, temperature 98. She is 99% on room air. General description: The patient is an elderly female up in the bed in no distress. Respiratory system: Unlabored breathing. Clear to auscultation anteriorly. Heart S1, S2. Regular rate and rhythm. ABDOMEN: Soft, no tenderness. LABS: The patient did have a CT of abdomen and pelvis, did not show any evidence of colitis. DIAGNOSTIC IMPRESSION AND PLAN: Patient with admitted to the hospital with abdominal pain in this patient who did have a fever x1, but no fever since then. Blood cultures have been negative. White count is normal. CT abdominal and pelvis did not show any abscess or colitis. We will add Lomotil for symptomatic relief. Continue along with Pepto-Bismol. If blood culture remains negative, recommend discontinue cefepime. Family at the bedside, questions answered. MMODL / IJN: [id number] /
[2019-12-01] MEDS: HYDROcodone/APAP 7.5-325MG 1 EACH TAB PO PRN ×2 (04:00→10:25)
[2019-12-01] MEDS: DIPHENOX-ATROP 2.5-0.025 MG 1 EACH TAB PO PRN ×2 (04:00→15:11)
[2019-12-01] MEDS: ALPRAZolam 0.5 MG TAB PO PRN ×2 (04:00→10:25)
[2019-12-01] MEDS: BISMUTH SUBSALICYLATE 4,192 MG/240 ML BOTTLE PO SCH ×2 (04:05→10:24)
[2019-12-01 07:09] VITALS: RESP 18
[2019-12-01] MEDS: PANTOPRAZOLE 40 MG TABLET PO SCH (08:00)
[2019-12-01] MEDS: metroNIDAZOLE 500 MG TAB PO SCH ×2 (08:00→15:11)
[2019-12-01] MEDS: POTASSIUM CHLORIDE ER 20 MEQ TAB.ER PO SCH (08:00)
[2019-12-01] MEDS: HEPARIN SODIUM,PORCINE 5,000 UNIT/ML 1 ML VIAL SQ SCH (08:00)
[2019-12-01] MEDS: CEFEPIME 2 GM in SODIUM CHLORIDE 0.9% 100 ML IVPB SCH (08:00)
[2019-12-01 15:06] VITALS: BP 116/72; PULSE 87; TEMP 98.7
--- NOTE | 2019-12-01 15:50 | P.DS ---
Providers Date of admission: 11/24/19 23:00 Expected date of discharge: 12/01/19 Attending physician: Sonia Mcgrath Consults: 11/24/19 23:00 Consult Physician Urgent Consulting Provider: Giovani Artis Consult Reason/Comments: abd pain, hx bowel resection Do you want consulting provider notified?: Yes 11/27/19 09:09 Consult Physician Urgent Consulting Provider: Glen Torres Consult Reason/Comments: possible gastroenteritis, UTI. Multiple ALLERGIES Do you want consulting provider notified?: Yes 11/29/19 16:56 Consult Physician Stat Consulting Provider: Ludwin Riggs Consult Reason/Comments: central line CHEMA Do you want consulting provider notified?: Yes Primary care physician: Bia May [facility] Course: Final diagnosis -Nausea vomiting diarrhea and abdominal pain: Probably due to gastritis or gastroenteritis. Still has diarrhea. Patient is currently on Flagyl and cefepime as per ID team -Short gut syndrome -History of small bowel obstruction with resection -Complains of dysuria, possible UTI. -Hypokalemia and hypomagnesemia -Hypertension -Seizure disorder -CVA TIA in the past -DVT in the past presently not on any anticoagulation -DVT prophylaxis -GI prophylaxis Discharge disposition Patient is being transferred in a stable condition with guarded prognosis to [facility]. Dr. Riley malik as the accepting attending. Total time taken is 35 minutes. History of present illness This is an 64-year-old female who was recently admitted with diarrhea and hypokalemia and was being closely monitored. Patient has a history of short gut syndrome and has been having multiple bowel movements upwards of over 12 diarrhea episodes per day and was being treated with electrolyte replacements including magnesium and potassium. Patient was seen and evaluated by surgery and recommending tertiary treatment and a GI consult as patient has an extensive history of colon surgeries in the past. Currently no reports of chest pain, shortness of breath, or palpitations. Patient is afebrile. No reports of nausea or vomiting and patient is tolerating diet. Patient will be transferred today to [facility] for GI consult once a bed becomes available. On exam vital signs are stable. Temp is 98.7F, pulse is 82, respirations are 14, blood pressure is 114/65, oxygen saturation is 95% on room air. Cardio S1, S2 are muffled. Respiratory shows diminished breath sounds at the bases with no wheezing or rhonchi noted. Abdomen is soft with mild tenderness. Nervous system shows no focal deficits. Please refer to medication reconciliation sheet for a list of medications. Patient Condition at Discharge: Stable Plan - Discharge Summary Discharge Rx Participant: Yes New Discharge Prescriptions: No Action Pantoprazole Sodium [Protonix] 80 mg PO DAILY Metoprolol Succinate (ER) [Toprol XL] 100 mg PO DAILY traMADol HCL 100 mg PO Q6H PRN PRN Reason: Pain Naratriptan HCl 2.5 mg PO DAILY PRN PRN Reason: Migraine Headache Lidocaine 5% Oint [Xylocaine 5% Oint] 1 applic TOPICAL DAILY PRN PRN Reason: Pain Ibuprofen [Motrin] 600 mg PO AC-TID PRN PRN Reason: Pain Docusate [Colace] 100 mg PO BID #20 capsule diazePAM [Valium] 5 mg VAGINAL TID PRN PRN Reason: Anxiety Discharge Medication List Metoprolol Succinate (ER) [Toprol XL] 100 mg PO DAILY 08/01/18 [History] Pantoprazole Sodium [Protonix] 80 mg PO DAILY 08/01/18 [History] Ibuprofen [Motrin] 600 mg PO AC-TID PRN 10/06/19 [History] Lidocaine 5% Oint [Xylocaine 5% Oint] 1 applic TOPICAL DAILY PRN 10/06/19 [History] Naratriptan HCl 2.5 mg PO DAILY PRN 10/06/19 [History] traMADol HCL 100 mg PO Q6H PRN 10/06/19 [History] Docusate [Colace] 100 mg PO BID #20 capsule 10/16/19 [Rx] diazePAM [Valium] 5 mg VAGINAL TID PRN 11/24/19 [History] Follow up Appointment(s)/Referral(s): Bia May MD [Primary Care Provider] - 12/01/19 8:00 am [facility] Visiting Nurse, [NON-STAFF] - Giovani Artis MD [STAFF PHYSICIAN] - 12/04/19 3:00 pm
--- NOTE | 2019-12-01 20:43 | PN ---
PROGRESS NOTE DATE OF SERVICE: 12/01/2019 REASON FOR FOLLOWUP: Diarrhea. INTERVAL HISTORY: The patient is currently afebrile. The patient is breathing comfortably. The patient denies having any chest pain or shortness of breath or cough. Still complaining of multiple loose stools. No nausea or vomiting. PHYSICAL EXAMINATION: Blood pressure 116/72 with a pulse of 87, temperature 98.3. She is 99% on room air. General description is an elderly female up in the bed in no distress. RESPIRATORY SYSTEM: Unlabored breathing. Clear to auscultation anteriorly. HEART: S1, S2. Regular rate and rhythm. ABDOMEN: Soft. No tenderness. LABS: Stool culture negative. Stool for C difficile was negative. Blood culture negative. White count normal. DIAGNOSTIC IMPRESSION AND PLAN: Patient with diarrhea; could be related to short gut syndrome, as the patient did have extensive workup and no evidence of any infectious etiology with culture negative. CT of abdomen and pelvis was negative as well. Recommend discontinuing antibiotics. Continue with symptomatic treatment. The patient wants to be transferred to tertiary care, and I do not see any problem with the same for further workup. MMODL / IJN: [id number] /
== END 2019-12-01 17:30 | disposition short-term general hospital (02) | DRG 392 ==
LOC: EC 17:32 → 4SSUR 23:00
PROVIDERS: ADMIT Internal Medicine; ATTEND Internal Medicine
PROC: 05HY33Z Insertion of Infusion Device into Upper Vein, Percutaneous Approach (ICD-10-PCS; principal; 2019-12-01 07:30)
DX: K52.9 Noninfective gastroenteritis and colitis, unspecified (principal); K91.2 Postsurgical malabsorption, not elsewhere classified; N39.0 Urinary tract infection, site not specified; K29.70 Gastritis, unspecified, without bleeding; M19.90 Unspecified osteoarthritis, unspecified site; K21.9 Gastro-esophageal reflux disease without esophagitis; F32.9 Major depressive disorder, single episode, unspecified; F41.9 Anxiety disorder, unspecified; E87.5 Hyperkalemia; E87.6 Hypokalemia; J44.9 Chronic obstructive pulmonary disease, unspecified; G40.909 Epilepsy, unspecified, not intractable, without status epilepticus; G89.29 Other chronic pain; E83.42 Hypomagnesemia; N20.0 Calculus of kidney; I50.9 Heart failure, unspecified; I11.0 Hypertensive heart disease with heart failure; Z11.59 Encounter for screening for other viral diseases; Z79.899 Other long term (current) drug therapy; Z88.1 Allergy status to other antibiotic agents; Z88.5 Allergy status to narcotic agent; Z88.0 Allergy status to penicillin; Z88.8 Allergy status to other drugs, medicaments and biological substances; Z86.718 Personal history of other venous thrombosis and embolism; Z86.73 Personal history of transient ischemic attack (TIA), and cerebral infarction without residual deficits; Z87.440 Personal history of urinary (tract) infections; Z85.42 Personal history of malignant neoplasm of other parts of uterus; Z85.43 Personal history of malignant neoplasm of ovary; Z85.3 Personal history of malignant neoplasm of breast; Z90.710 Acquired absence of both cervix and uterus; I25.2 Old myocardial infarction; Z86.14 Personal history of Methicillin resistant Staphylococcus aureus infection; Z90.49 Acquired absence of other specified parts of digestive tract; Z90.89 Acquired absence of other organs; Z98.890 Other specified postprocedural states; Z90.13 Acquired absence of bilateral breasts and nipples; Z80.42 Family history of malignant neoplasm of prostate; Z80.1 Family history of malignant neoplasm of trachea, bronchus and lung
CPT/HCPCS: 36410; 36415; 74177; 76937; 80048; 80053; 81001; 82272; 83605; 83735; 84132; 84145; 84484; 85025; 85027; 85610; 87040; 87045; 87046; 87324; 93005; 96361; 96365; 96366; 96374; 96375; 96376; 99285

== ENCOUNTER 2019-12-26 08:44 | Emergency (ER) | payer MEDICARE, OTHER ==
[2019-12-26] MEDS ORDERED: HYDROmorphone 1 MG/ML 1 ML SYRINGE IVP STA (09:23)
[2019-12-26] MEDS ORDERED: ONDANSETRON 4 MG/2 ML VIAL IVP STA (09:23)
[2019-12-26] MEDS ORDERED: PANTOPRAZOLE 40 MG/10 ML VIAL IVP STA (09:23)
[2019-12-26] MEDS ORDERED: SODIUM CHLORIDE 0.9% 1,000 ML IV STA ×2 (09:23)
[2019-12-26 10:23] LABS: Appearance,Urine Clear (Clear); Bacteria,Urine Rare /hpf; Bilirubin,Urine Negative (Negative); Blood,Urine Negative (Negative); Color,Urine Yellow; Glucose,Urine (UA) Negative (Negative); Ketones,Urine Negative (Negative); Leukocyte Esterase,Urine Small (Negative); Mucus,Urine Moderate /hpf; Nitrite,Urine Positive (Negative); Protein,Urine Trace (Negative); RBC,Urine 1 /hpf (0-5); Squamous Epithelial Cell,Urine 2 /hpf (0-4); Urobilinogen,Urine <2.0 mg/dL (<2.0); WBC,Urine 6 /hpf (0-5)
--- NOTE | 2019-12-26 10:33 | ED ---
Abdominal Pain HPI - General Chief Complaint: Abdominal Pain Stated Complaint: chills/fatigue/nausea Time Seen by Provider: 12/26/19 09:17 Source: patient, RN notes reviewed, old records reviewed Mode of arrival: ambulatory Limitations: no limitations - History of Present Illness Initial Comments: Heart there is a 64-year-old female with a history of small bowel instruction and surgery back in October. She presents emergency parents today with complaints of fatigue, chills and worsening left lower quadrant abdominal pain. Complains of nausea. She states she is very short gut has constant diarrhea since her surgery. Patient states she's had no changes in urination. - Related Data Home Medications Medication Instructions Recorded Confirmed Metoprolol Succinate (ER) [Toprol 100 mg PO DAILY 08/01/18 11/24/19 XL] Pantoprazole Sodium [Protonix] 80 mg PO DAILY 08/01/18 11/24/19 Ibuprofen [Motrin] 600 mg PO AC-TID PRN 10/06/19 11/24/19 Lidocaine 5% Oint [Xylocaine 5% 1 applic TOPICAL DAILY PRN 10/06/19 11/24/19 Oint] Naratriptan HCl 2.5 mg PO DAILY PRN 10/06/19 11/24/19 traMADol HCL 100 mg PO Q6H PRN 10/06/19 11/24/19 diazePAM [Valium] 5 mg VAGINAL TID PRN 11/24/19 11/24/19 Previous Rx's Medication Instructions Recorded Docusate [Colace] 100 mg PO BID #20 capsule 10/16/19 Nitrofurantoin Monohyd/M-Cryst 100 mg PO Q12HR #14 cap 12/26/19 [Macrobid] Allergies Allergy/AdvReac Type Severity Reaction Status Date / Time carbamazepine [From Tegretol] Allergy increases Verified 11/24/19 22:37 seizures doxycycline Allergy Unknown Verified 11/24/19 22:37 morphine Allergy Rash/Hives Verified 11/24/19 22:37 Penicillins Allergy Anaphylaxis Verified 11/24/19 22:37 phenobarbital Allergy Rash/Hives Verified 11/24/19 22:37 phenytoin [From Dilantin] Allergy Anaphylaxis Verified 11/24/19 22:37 Review of Systems ROS Statement: Those systems with pertinent positive or pertinent negative responses have been documented in the HPI. ROS Other: All systems not noted in ROS Statement are negative. Past Medical History Past Medical History: Cancer, Heart Failure, COPD, CVA/TIA, Deep Vein Thrombosis (DVT), GERD/Reflux, Hypertension, Myocardial Infarction ([place]), Neurologic Disorder, Osteoarthritis (OA), Seizure Disorder Additional Past Medical History / Comment(s): History of bilateral breast cancer, ovarian cancer, uterine cancer, history of CVA back in 1982, history of irregular heart rate possibly atrial fibrillation many years back, history of petit mal seizures, coronary artery disease, previous [place], history of DVT, history of acid reflux, history of COPD, hypertension, osteoarthritis, multiple bowel obstruction requiring previous abdominal surgeries and bowel resection. She also has renal cysts Last Myocardial Infarction Date:: 1997 History of Any Multi-Drug Resistant Organisms: MRSA Date of last positivie culture/infection: 2003 MDRO Source:: lt hip Past Surgical History: Appendectomy, Back Surgery, Bowel Resection, Breast Surgery, Cholecystectomy, Hysterectomy, Orthopedic Surgery, Tonsillectomy Additional Past Surgical History / Comment(s): earnest mastectomy, oopherectomy back surgery x5 with last sx cage in back, bowel resection x5-6, earnest. carpal tunnel, lt rotator cuff repair Past Anesthesia/Blood Transfusion Reactions: Previous Problems w/ Anesthesia Additional Past Anesthesia/Blood Transfusion Reaction / Comment(s): experiences anxiety prior to surgery and agitiation. b/p elevates during surgery. woke up during surgery. difficult IV start Past Psychological History: Anxiety, Depression Smoking Status: Never smoker Past Alcohol Use History: Rare Past Drug Use History: None Reported - Past Family History Mother Family Medical History: Cancer Additional Family Medical History / Comment(s): lung Father Family Medical History: Cancer Additional Family Medical History / Comment(s): prostate Brother(s) Family Medical History: Cancer Additional Family Medical History / Comment(s): lung with metastasis General Exam Limitations: no limitations General appearance: alert, in no apparent distress Head exam: Present: atraumatic, normocephalic, normal inspection Eye exam: Present: normal appearance, PERRL, EOMI. Absent: scleral icterus, conjunctival injection, periorbital swelling ENT exam: Present: normal exam, mucous membranes moist Neck exam: Present: normal inspection. Absent: tenderness, meningismus, lymphadenopathy Respiratory exam: Present: normal lung sounds bilaterally. Absent: respiratory distress, wheezes, rales, rhonchi, stridor Cardiovascular Exam: Present: regular rate, normal rhythm, normal heart sounds. Absent: systolic murmur, diastolic murmur, rubs, gallop, clicks GI/Abdominal exam: Present: soft, normal bowel sounds. Absent: distended, tenderness, guarding, rebound, rigid Extremities exam: Present: normal inspection, full ROM, normal capillary refill. Absent: tenderness, pedal edema, joint swelling, calf tenderness Back exam: Present: normal inspection Neurological exam: Present: alert, oriented X3, CN II-XII intact Psychiatric exam: Present: normal affect, normal mood Skin exam: Present: warm, dry, intact, normal color. Absent: rash Course Vital Signs 12/26/19 08:51 Temperature 98.1 F Pulse Rate 102 H Respiratory 18 Rate Blood Pressure 153/83 O2 Sat by Pulse 100 Oximetry Medical Decision Making - Medical Decision Making 64-year-old female presents the ER today for a side abdominal pain persistent diarrhea for the past few months after having bowel resection. At this time she is some tenderness. She is a difficult IV start and midline was placed. Patient was given IV fluids and pain medication nausea medicine. Patient has had multiple episodes of diarrhea in the ER no bloody stools. At this time patient's CBC was unremarkable and improved from previous testing. Chemstrip also showed dehydration withthe carpus 15. She is given IV hydration. Urinalysis shows mild UTI. Face and pelvis is negative for any acute process and shows evidence of previous surgical changes with no acute abscess or infection. Patient will be discharged at this time with follow-up with PCP. - Lab Data Result diagrams: 12/26/19 11:25 12/26/19 11:25 Lab Results 12/26/19 12/26/19 12/26/19 Range/Units 09:30 11:25 11:25 WBC 6.0 (3.8-10.6) k/uL RBC 4.68 (3.80-5.40) m/uL Hgb 11.1 L (11.4-16.0) gm/dL Hct 36.8 (34.0-46.0) % MCV 78.7 L (80.0-100.0) fL MCH 23.7 L (25.0-35.0) pg MCHC 30.2 L (31.0-37.0) g/dL RDW 16.8 H (11.5-15.5) % Plt Count 189 (150-450) k/uL Neutrophils % 67 % Lymphocytes % 24 % Monocytes % 6 % Eosinophils % 1 % Basophils % 1 % Neutrophils # 4.0 (1.3-7.7) k/uL Lymphocytes # 1.4 (1.0-4.8) k/uL Monocytes # 0.4 (0-1.0) k/uL Eosinophils # 0.1 (0-0.7) k/uL Basophils # 0.0 (0-0.2) k/uL Hypochromasia Marked Anisocytosis Slight Microcytosis Slight PT (9.0-12.0) sec INR (<1.2) APTT (22.0-30.0) sec Sodium 143 (137-145) mmol/L Potassium 3.7 (3.5-5.1) mmol/L Chloride 117 H (98-107) mmol/L Carbon Dioxide 15 L (22-30) mmol/L Anion Gap 11 mmol/L BUN 7 (7-17) mg/dL Creatinine 0.47 L (0.52-1.04) mg/dL Est GFR (CKD-EPI)AfAm >90 (>60 ml/min/1.73 sqM) Est GFR (CKD-EPI)NonAf >90 (>60 ml/min/1.73 sqM) Glucose 108 H (74-99) mg/dL Plasma Lactic Acid Eduardo (0.7-2.0) mmol/L Calcium 9.1 (8.4-10.2) mg/dL Total Bilirubin 0.3 (0.2-1.3) mg/dL AST 40 H (14-36) U/L ALT 30 (4-34) U/L Alkaline Phosphatase 153 H (38-126) U/L Total Protein 6.5 (6.3-8.2) g/dL Albumin 3.7 (3.5-5.0) g/dL Amylase 83 (30-110) U/L Lipase 397 H (23-300) U/L Urine Color Yellow Urine Appearance Clear (Clear) Urine pH 6.0 (5.0-8.0) Ur Specific [place] 1.020 (1.001-1.035) Urine Protein Trace H (Negative) Urine Glucose (UA) Negative (Negative) Urine Ketones Negative (Negative) Urine Blood Negative (Negative) Urine Nitrite Positive H (Negative) Urine Bilirubin Negative (Negative) Urine Urobilinogen <2.0 (<2.0) mg/dL Ur Leukocyte Esterase Small H (Negative) Urine RBC 1 (0-5) /hpf Urine WBC 6 H (0-5) /hpf Ur Squamous Epith Cells 2 (0-4) /hpf Urine Bacteria Rare H (None) /hpf Urine Mucus Moderate H (None) /hpf 12/26/19 12/26/19 Range/Units 11:25 11:25 WBC (3.8-10.6) k/uL RBC (3.80-5.40) m/uL Hgb (11.4-16.0) gm/dL Hct (34.0-46.0) % MCV (80.0-100.0) fL MCH (25.0-35.0) pg MCHC (31.0-37.0) g/dL RDW (11.5-15.5) % Plt Count (150-450) k/uL Neutrophils % % Lymphocytes % % Monocytes % % Eosinophils % % Basophils % % Neutrophils # (1.3-7.7) k/uL Lymphocytes # (1.0-4.8) k/uL Monocytes # (0-1.0) k/uL Eosinophils # (0-0.7) k/uL Basophils # (0-0.2) k/uL Hypochromasia Anisocytosis Microcytosis PT 11.6 (9.0-12.0) sec INR 1.1 (<1.2) APTT 23.3 (22.0-30.0) sec Sodium (137-145) mmol/L Potassium (3.5-5.1) mmol/L Chloride (98-107) mmol/L Carbon Dioxide (22-30) mmol/L Anion Gap mmol/L BUN (7-17) mg/dL Creatinine (0.52-1.04) mg/dL Est GFR (CKD-EPI)AfAm (>60 ml/min/1.73 sqM) Est GFR (CKD-EPI)NonAf (>60 ml/min/1.73 sqM) Glucose (74-99) mg/dL Plasma Lactic Acid Eduardo 2.0 (0.7-2.0) mmol/L Calcium (8.4-10.2) mg/dL Total Bilirubin (0.2-1.3) mg/dL AST (14-36) U/L ALT (4-34) U/L Alkaline Phosphatase (38-126) U/L Total Protein (6.3-8.2) g/dL Albumin (3.5-5.0) g/dL Amylase (30-110) U/L Lipase (23-300) U/L Urine Color Urine Appearance (Clear) Urine pH (5.0-8.0) Ur Specific [place] (1.001-1.035) Urine Protein (Negative) Urine Glucose (UA) (Negative) Urine Ketones (Negative) Urine Blood (Negative) Urine Nitrite (Negative) Urine Bilirubin (Negative) Urine Urobilinogen (<2.0) mg/dL Ur Leukocyte Esterase (Negative) Urine RBC (0-5) /hpf Urine WBC (0-5) /hpf Ur Squamous Epith Cells (0-4) /hpf Urine Bacteria (None) /hpf Urine Mucus (None) /hpf - Radiology Data Radiology results: report reviewed Postoperative changes at the anastomosis of left lower quadrant without evidence of leak abscess or inflammatory process. Disposition Clinical Impression: Diarrhea, Abdominal pain, Short intestine syndrome, UTI (urinary tract infection) Disposition: HOME SELF-CARE Condition: Good Instructions (If sedation given, give patient instructions): Abdominal Pain (ED) Additional Instructions: Please use medication as discussed. Please follow up with family doctor if symptoms have not improved over the next two days. Please return to the emergency room if your symptoms increase or worsen or for any other concerns. Prescriptions: Nitrofurantoin Monohyd/M-Cryst [Macrobid] 100 mg PO Q12HR #14 cap Is patient prescribed a controlled substance at d/c from ED?: No If prescribed controlled substance>3 days was MAPS reviewed?: Prescribed <3 Days Referrals: Bia May MD [Primary Care Provider] - 1-2 days Time of Disposition: 14:00
[2019-12-26 12:04] LABS: ALT 30 U/L (4-34); AST 40 U/L (14-36); African American GFR (CKD) >90 (>60 ml/min/1.73 sqM); Albumin 3.7 g/dL (3.5-5.0); Alkaline Phosphatase 153 U/L (38-126); Amylase 83 U/L (30-110); Anion Gap 11 mmol/L; Blood Urea Nitrogen 7 mg/dL (7-17); Calcium 9.1 mg/dL (8.4-10.2); Carbon Dioxide 15 mmol/L (22-30); Chloride 117 mmol/L (98-107); Glucose 108 mg/dL (74-99); INR 1.1 (<1.2); Non-African American GFR(CKD) >90 (>60 ml/min/1.73 sqM); Partial Thromboplastin Time 23.3 sec (22.0-30.0); Potassium 3.7 mmol/L (3.5-5.1); Prothrombin Time 11.6 sec (9.0-12.0); Sodium 143 mmol/L (137-145); Total Bilirubin 0.3 mg/dL (0.2-1.3); Total Protein 6.5 g/dL (6.3-8.2)
[2019-12-26 12:37] LABS: Anisocytosis Slight; Basophils % (A) 1 %; Eosinophils # (A) 0.1 k/uL (0-0.7); Eosinophils % (A) 1 %; HCT 36.8 % (34.0-46.0); HGB 11.1 gm/dL (11.4-16.0); Hypochromasia Marked; Lymphocytes # (A) 1.4 k/uL (1.0-4.8); Lymphocytes % (A) 24 %; MCH 23.7 pg (25.0-35.0); MCHC 30.2 g/dL (31.0-37.0); MCV 78.7 fL (80.0-100.0); Mean Platelet Volume 8.8; Microcytosis Slight; Monocytes # (A) 0.4 k/uL (0-1.0); Monocytes % (A) 6 %; Neutrophils % (A) 67 %; Platelet Count 189 k/uL (150-450); RBC 4.68 m/uL (3.80-5.40); RDW 16.8 % (11.5-15.5)
--- NOTE | 2019-12-26 13:30 | CT ---
EXAMINATION TYPE: CT abdomen pelvis w con DATE OF EXAM: 12/26/2019 COMPARISON: 11/29/2019 HISTORY: Abdominal pain, chills, fatigue, nausea and weight loss. History of bowel resection. CT DLP: 704.6 mGycm CONTRAST: CT scan of the abdomen and pelvis is performed without Oral Contrast and with IV Contrast, patient in jected with 100 mL of Isovue 300. FINDINGS: LUNG BASES-: No visible nodule. No infiltrate. LIVER/GB: Gallbladder surgically absent. Fatty liver. No space occupying hepatic lesion. Biliary t ree is of normal caliber. PANCREAS: No inflammation. No distinct mass. SPLEEN: No splenic enlargement. No lesion seen. ADRENALS: No nodule. No thickening. KIDNEYS/BLADDER: No hydronephrosis. No nephrolithiasis. Renal cystic changes identified. Urinary bl adder grossly unremarkable. BOWEL: Postoperative changes left lower quadrant. Anastomotic changes seen. No evidence for leak or a bscess. Postoperative changes anterior abdominal wall remain stable. GENITAL ORGANS: No gross abnormality. LYMPH NODES: No greater than 1cm abdominal or pelvic lymph nodes are appreciated. AORTA: No significant abnormality. OSSEOUS STRUCTURES: Postoperative changes lumbar spine.. OTHER: No significant additional abnormality is seen. IMPRESSION: 1. Postoperative changes of the anastomosis left lower quadrant without evidence for leak, abscess or inflammatory process.
[2019-12-26 14:27] VITALS: BP 143/83; PULSE 63; RESP 16; TEMP 98
== END 2019-12-26 14:25 | disposition home or self-care (01) ==
LOC: EC 08:44
DX: N39.0 Urinary tract infection, site not specified (principal); K91.2 Postsurgical malabsorption, not elsewhere classified; R19.7 Diarrhea, unspecified; E86.0 Dehydration; I11.0 Hypertensive heart disease with heart failure; I50.9 Heart failure, unspecified; K21.9 Gastro-esophageal reflux disease without esophagitis; M19.90 Unspecified osteoarthritis, unspecified site; I25.2 Old myocardial infarction; Z88.1 Allergy status to other antibiotic agents; Z88.0 Allergy status to penicillin; Z88.8 Allergy status to other drugs, medicaments and biological substances; Z88.5 Allergy status to narcotic agent; Z85.43 Personal history of malignant neoplasm of ovary; Z85.42 Personal history of malignant neoplasm of other parts of uterus; Z85.3 Personal history of malignant neoplasm of breast; Z86.718 Personal history of other venous thrombosis and embolism; Z86.73 Personal history of transient ischemic attack (TIA), and cerebral infarction without residual deficits; Z79.899 Other long term (current) drug therapy; Z90.49 Acquired absence of other specified parts of digestive tract; Z98.890 Other specified postprocedural states
CPT/HCPCS: 36415; 36410; 76937; 80053; 82150; 83605; 83690; 85025; 85610; 85730; 81001; 87086; 87077; 87186; 74177; 99284; 96374; 96375 ×2; 96361 ×2; J2405; J1170; C9113; Q9967

== ENCOUNTER 2020-03-31 20:37 | Emergency (ER) | payer MEDICARE, OTHER ==
[2020-03-31 20:47] VITALS: RESP 16
--- NOTE | 2020-03-31 21:55 | CT ---
EXAMINATION TYPE: CT brain cspine wo con DATE OF EXAM: 03/31/2020 COMPARISON: None HISTORY: fall CT DLP: 1319.9 mGycm Automated exposure control for dose reduction was used. Ventricles and sulci appear normal. There is no mass effect nor midline shift. There is no sign of in tracranial hemorrhage. The calvarium is intact. Skull base is intact. There is normal aeration of the mastoid sinuses. Cervical vertebra have normal alignment. There is mild narrowing at C5-6 disc space. Facet joints are intact. Prevertebral soft tissues are intact. IMPRESSION: Negative CT scan of the brain. Minimal degenerative disc changes at C5-6. No fracture.
[2020-03-31 22:37] VITALS: BP 102/65; PULSE 78; TEMP 98.4
[2020-03-31] MEDS ORDERED: Acetaminophen-Codeine 300-30mg TAB PO STA (22:38)
[2020-03-31] MEDS ORDERED: ACET/COD 300 MG/30 MG STARTER PACK 6 TAB BTL PO STA (22:38)
[2020-03-31] MEDS ORDERED: KETOROLAC 15 MG/ML 1 ML VIAL IM STA (22:39)
--- NOTE | 2020-03-31 22:40 | ED ---
Fall HPI - General Chief Complaint: Fall Stated Complaint: Fall Time Seen by Provider: 03/31/20 21:09 Source: patient, EMS, RN notes reviewed, old records reviewed Mode of arrival: EMS Limitations: no limitations - History of Present Illness MD Complaint: fall -: hour(s) Fall From: standing When Fall Occurred: 1 hour [employer]OR Fall Witnessed: yes, by bystander Place Fall Occurred: home Loss of Consciousness: none Prolonged Down Time?: no Symptoms Prior to Fall: none Location: head Severity: moderate Severity scale (1-10): 3 Quality: aching Context: tripped/slipped Associated Symptoms: denies - Related Data Home Medications Medication Instructions Recorded Confirmed Metoprolol Succinate (ER) [Toprol 100 mg PO DAILY 08/01/18 03/31/20 XL] Pantoprazole Sodium [Protonix] 80 mg PO DAILY 08/01/18 03/31/20 Lidocaine 5% Oint [Xylocaine 5% 1 applic TOPICAL QID PRN 10/06/19 03/31/20 Oint] Naratriptan HCl 2.5 mg PO DAILY PRN 10/06/19 03/31/20 traMADol HCL 100 mg PO Q6H PRN 10/06/19 03/31/20 diazePAM [Valium] 5 mg VAGINAL BID PRN 11/24/19 03/31/20 Diphenoxylate HCl/Atropine 1 tab PO Q6H PRN 03/31/20 03/31/20 [Lomotil 2.5-0.025 mg Tablet] Lisinopril [Prinivil] 10 mg PO DAILY 03/31/20 03/31/20 Potassium Chloride ER [K-Dur 20] 40 meq PO DAILY 03/31/20 03/31/20 Allergies Allergy/AdvReac Type Severity Reaction Status Date / Time carbamazepine [From Tegretol] Allergy increases Verified 03/31/20 22:33 seizures doxycycline Allergy Unknown Verified 03/31/20 22:33 morphine Allergy Rash/Hives Verified 03/31/20 22:33 Penicillins Allergy Anaphylaxis Verified 03/31/20 22:33 phenobarbital Allergy Rash/Hives Verified 03/31/20 22:33 phenytoin [From Dilantin] Allergy Anaphylaxis Verified 03/31/20 22:33 Review of Systems ROS Statement: Those systems with pertinent positive or pertinent negative responses have been documented in the HPI. ROS Other: All systems not noted in ROS Statement are negative. Past Medical History Past Medical History: Cancer, Heart Failure, COPD, CVA/TIA, Deep Vein Thrombosis (DVT), GERD/Reflux, Hypertension, Myocardial Infarction ([place]), Neurologic Disorder, Osteoarthritis (OA), Seizure Disorder Additional Past Medical History / Comment(s): History of bilateral breast cancer, ovarian cancer, uterine cancer, history of CVA back in 1982, history of irregular heart rate possibly atrial fibrillation many years back, history of pe tit mal seizures, coronary artery disease, previous [place], history of DVT, history of acid reflux, history of COPD, hypertension, osteoarthritis, multiple bowel obstruction requiring previous abdominal surgeries and bowel resection. She also has renal cysts Last Myocardial Infarction Date:: 1997 History of Any Multi-Drug Resistant Organisms: MRSA Date of last positivie culture/infection: 2003 MDRO Source:: lt hip Past Surgical History: Appendectomy, Back Surgery, Bowel Resection, Breast Surgery, Cholecystectomy, Hysterectomy, Orthopedic Surgery, Tonsillectomy Additional Past Surgical History / Comment(s): earnest mastectomy, oopherectomy back surgery x5 with last sx cage in back, bowel resection x5-6, earnest. carpal tunnel, lt rotator cuff repair Past Anesthesia/Blood Transfusion Reactions: Previous Problems w/ Anesthesia Additional Past Anesthesia/Blood Transfusion Reaction / Comment(s): experiences anxiety prior to surgery and agitiation. b/p elevates during surgery. woke up during surgery. difficult IV start Past Psychological History: Anxiety, Depression Smoking Status: Never smoker Past Alcohol Use History: Rare Past Drug Use History: None Reported - Past Family History Mother Family Medical History: Cancer Additional Family Medical History / Comment(s): lung Father Family Medical History: Cancer Additional Family Medical History / Comment(s): prostate Brother(s) Family Medical History: Cancer Additional Family Medical History / Comment(s): lung with metastasis General Exam Limitations: no limitations General appearance: alert, in no apparent distress Head exam: Present: atraumatic, normocephalic, normal inspection Eye exam: Present: normal appearance, PERRL, EOMI. Absent: scleral icterus, conjunctival injection, periorbital swelling ENT exam: Present: normal exam, mucous membranes moist Neck exam: Present: normal inspection. Absent: tenderness, meningismus, lymphadenopathy Respiratory exam: Present: normal lung sounds bilaterally. Absent: respiratory distress, wheezes, rales, rhonchi, stridor Cardiovascular Exam: Present: regular rate, normal rhythm, normal heart sounds. Absent: systolic murmur, diastolic murmur, rubs, gallop, clicks GI/Abdominal exam: Present: soft, normal bowel sounds. Absent: distended, tenderness, guarding, rebound, rigid Extremities exam: Present: normal inspection, full ROM, normal capillary refill. Absent: tenderness, pedal edema, joint swelling, calf tenderness Back exam: Present: normal inspection Neurological exam: Present: alert, oriented X3, CN II-XII intact Psychiatric exam: Present: normal affect, normal mood Skin exam: Present: warm, dry, intact, normal color. Absent: rash Course Vital Signs 03/31/20 03/31/20 20:39 21:55 Temperature 98.5 F 98.4 F Pulse Rate 88 78 Respiratory 16 16 Rate Blood Pressure 119/79 102/65 O2 Sat by Pulse 95 99 Oximetry Disposition Clinical Impression: Fall, Weakness Disposition: HOME SELF-CARE Condition: Good Instructions (If sedation given, give patient instructions): Fall Prevention for Older Adults (ED) Is patient prescribed a controlled substance at d/c from ED?: No Referrals: Bia May MD [Primary Care Provider] - 1-2 days
== END 2020-03-31 23:00 | disposition home or self-care (01) ==
LOC: EC 20:37
DX: R53.1 Weakness (principal); I11.0 Hypertensive heart disease with heart failure; I50.9 Heart failure, unspecified; I25.2 Old myocardial infarction; J44.9 Chronic obstructive pulmonary disease, unspecified; K21.9 Gastro-esophageal reflux disease without esophagitis; F41.9 Anxiety disorder, unspecified; I25.10 Atherosclerotic heart disease of native coronary artery without angina pectoris; F32.9 Major depressive disorder, single episode, unspecified; Z79.899 Other long term (current) drug therapy; Z88.0 Allergy status to penicillin; Z88.1 Allergy status to other antibiotic agents; Z88.8 Allergy status to other drugs, medicaments and biological substances; Z88.5 Allergy status to narcotic agent; Z86.718 Personal history of other venous thrombosis and embolism; Z85.3 Personal history of malignant neoplasm of breast; Z85.43 Personal history of malignant neoplasm of ovary; Z85.41 Personal history of malignant neoplasm of cervix uteri; Z86.73 Personal history of transient ischemic attack (TIA), and cerebral infarction without residual deficits; Z90.13 Acquired absence of bilateral breasts and nipples; W19.XXXA Unspecified fall, initial encounter
CPT/HCPCS: 72125; 70450; 99284; 96372; J1885

== ENCOUNTER 2020-09-26 20:07 | Emergency (ER) | payer MEDICARE, OTHER ==
[2020-09-26 20:14] VITALS: TEMP 98
[2020-09-26] MEDS ORDERED: SODIUM CHLORIDE 0.9% 500 ML 500 ML IV STA (20:23)
[2020-09-26] MEDS ORDERED: HYDROmorphone 1 MG/ML 1 ML SYRINGE IVP STA (20:39)
[2020-09-26] MEDS ORDERED: ONDANSETRON 4 MG/2 ML VIAL IVP STA (20:40)
--- NOTE | 2020-09-26 20:44 | ED ---
GI Bleed HPI - General Chief complaint: GI Bleed Stated complaint: GI Bleed Time Seen by Provider: 09/26/20 20:23 Source: patient, EMS Mode of arrival: EMS Limitations: no limitations - History of Present Illness Initial comments: 65-year-old female with history of GI bleeds presents to emergency Department with a chief complaint of rectal bleeding. Patient reports history of multiple abdominal surgeries with history of bowel obstruction as well. States she has been having intermittent rectal spotting over the last year. States over the last 1-2 days she has noticed increased rectal bleeding. States she has dumping syndrome and has about 15 bowel movements daily which are typically diarrhea. States over the last 2-3 days these have been bloody area shows reports nausea with 3 episodes of nonbilious and nonbloody vomiting over the last few days. Reports left-sided abdominal tenderness which is worse than usual. She denies any urinary or vaginal symptoms. It has any chest pain or shortness of breath. - Related Data Home Medications Medication Instructions Recorded Confirmed Metoprolol Succinate (ER) [Toprol 100 mg PO DAILY 08/01/18 09/26/20 XL] Pantoprazole Sodium [Protonix] 40 mg PO BID 08/01/18 09/26/20 Naratriptan HCl 2.5 mg PO DAILY PRN 10/06/19 09/26/20 traMADol HCL 100 mg PO Q6H PRN 10/06/19 09/26/20 diazePAM [Valium] 5 mg VAGINAL BID PRN 11/24/19 09/26/20 Diphenoxylate HCl/Atropine 1 tab PO Q6H PRN 03/31/20 09/26/20 [Lomotil 2.5-0.025 mg Tablet] Lisinopril [Prinivil] 10 mg PO DAILY 03/31/20 09/26/20 Potassium Chloride ER [K-Dur 20] 40 meq PO DAILY 03/31/20 09/26/20 Ondansetron Odt [Zofran Odt] 8 mg PO Q8HR PRN 09/26/20 09/26/20 Previous Rx's Medication Instructions Recorded Ondansetron Odt [Zofran Odt] 4 mg PO Q8HR PRN #10 tab 09/26/20 Allergies Allergy/AdvReac Type Severity Reaction Status Date / Time carbamazepine [From Tegretol] Allergy increases Verified 09/26/20 21:31 seizures doxycycline Allergy Unknown Verified 09/26/20 21:31 morphine Allergy Rash/Hives Verified 09/26/20 21:31 Penicillins Allergy Anaphylaxis Verified 09/26/20 21:31 phenobarbital Allergy Rash/Hives Verified 09/26/20 21:31 phenytoin [From Dilantin] Allergy Anaphylaxis Verified 09/26/20 21:31 Review of Systems ROS Statement: Those systems with pertinent positive or pertinent negative responses have been documented in the HPI. ROS Other: All systems not noted in ROS Statement are negative. Past Medical History Past Medical History: Cancer, Heart Failure, COPD, CVA/TIA, Deep Vein Thrombosis (DVT), GERD/Reflux, Hypertension, Myocardial Infarction ([place]), Neurologic Diso rder, Osteoarthritis (OA), Seizure Disorder Additional Past Medical History / Comment(s): History of bilateral breast cancer, ovarian cancer, uterine cancer, history of CVA back in 1982, history of irregular heart rate possibly atrial fibrillation many years back, history of petit mal seizures, coronary artery disease, previous [place], history of DVT, history of acid reflux, history of COPD, hypertension, osteoarthritis, multiple bowel obstruction requiring previous abdominal surgeries and bowel resection. She also has renal cysts Last Myocardial Infarction Date:: 1997 History of Any Multi-Drug Resistant Organisms: MRSA Date of last positivie culture/infection: 2003 MDRO Source:: lt hip Past Surgical History: Appendectomy, Back Surgery, Bowel Resection, Breast Surgery, Cholecystectomy, Hysterectomy, Orthopedic Surgery, Tonsillectomy Additional Past Surgical History / Comment(s): earnest mastectomy, oopherectomy back surgery x5 with last sx cage in back, bowel resection x5-6, earnest. carpal tunnel, lt rotator cuff repair Past Anesthesia/Blood Transfusion Reactions: Previous Problems w/ Anesthesia Additional Past Anesthesia/Blood Transfusion Reaction / Comment(s): experiences anxiety prior to surgery and agitiation. b/p elevates during surgery. woke up during surgery. difficult IV start Past Psychological History: Anxiety, Depression Smoking Status: Never smoker Past Alcohol Use History: Rare Past Drug Use History: None Reported - Past Family History Mother Family Medical History: Cancer Additional Family Medical History / Comment(s): lung Father Family Medical History: Cancer Additional Family Medical History / Comment(s): prostate Brother(s) Family Medical History: Cancer Additional Family Medical History / Comment(s): lung with metastasis General Exam Limitations: no limitations General appearance: alert, in no apparent distress Head exam: Present: atraumatic, normocephalic, normal inspection Eye exam: Present: normal appearance, PERRL, EOMI Pupils: Present: normal accommodation ENT exam: Present: normal exam, normal oropharynx, mucous membranes moist Neck exam: Present: normal inspection, full ROM. Absent: tenderness, lymphadenopathy Respiratory exam: Present: normal lung sounds bilaterally. Absent: respiratory distress, wheezes, rales, rhonchi, stridor Cardiovascular Exam: Present: regular rate, normal rhythm, normal heart sounds. Absent: systolic murmur GI/Abdominal exam: Present: soft (Multiple scars noted in the abdomen from previous surgeries), tenderness (Left lower quadrant left upper quadrant tenderness.). Absent: distended, guarding, rebound, rigid Extremities exam: Present: normal inspection, full ROM, normal capillary refill. Absent: tenderness, pedal edema, joint swelling Back exam: Present: normal inspection, full ROM. Absent: tenderness, CVA tenderness (R), CVA tenderness (L) Neurological exam: Present: alert, oriented X3 Psychiatric exam: Present: normal affect, normal mood Skin exam: Present: warm, dry, intact, normal color Course Vital Signs 09/26/20 09/26/20 09/26/20 20:09 21:01 23:25 Temperature 98 F Pulse Rate 104 H 92 73 Respiratory 18 16 18 Rate Blood Pressure 143/104 123/86 130/87 O2 Sat by Pulse 93 L 95 98 Oximetry Medical Decision Making - Medical Decision Making 65-year-old female with history of GI bleeds presents to emergency Department with a chief complaint of rectal bleeding. On physical examination, patient has left-sided abdominal tenderness. Patient was initially tachycardic. Slightly hypoxic but her vital signs have improved. Patient was given IV fluids, analgesia and antiemetics. She did report improvement in all of her symptoms. She did appear to have slightly dry mucous members. CBC CMP is unremarkable. No signs of anemia. Coags within normal limits. I do not have significant concern for dehydration at this time. CT of abdomen and pelvis performed shows a slightly dilated biliary tree that is increased slightly compared to the old exam. However, clinically the patient is not tender over that region whatsoever. I discussed the findings with the patient and she feels comfortable going home. I gave her [place] 5 mg and a Zofran starter pack. I also discharge her with Zofran to advised to follow-up with her GI specialist. Patient has been experiencing intermittent rectal bleeding/hematochezia over the last year since her last surgery. This appears to be nothing new. Case discussed with - Lab Data Result diagrams: 09/26/20 20:57 09/26/20 20:57 Lab Results 09/26/20 09/26/20 09/26/20 Range/Units 20:57 20:57 20:57 WBC 6.7 (3.8-10.6) k/uL RBC 4.31 (3.80-5.40) m/uL Hgb 11.7 (11.4-16.0) gm/dL Hct 37.3 (34.0-46.0) % MCV 86.5 (80.0-100.0) fL MCH 27.2 (25.0-35.0) pg MCHC 31.5 (31.0-37.0) g/dL RDW 15.2 (11.5-15.5) % Plt Count 211 (150-450) k/uL MPV 6.9 Neutrophils % 63 % Lymphocytes % 24 % Monocytes % 6 % Eosinophils % 4 % Basophils % 1 % Neutrophils # 4.3 (1.3-7.7) k/uL Lymphocytes # 1.6 (1.0-4.8) k/uL Monocytes # 0.4 (0-1.0) k/uL Eosinophils # 0.2 (0-0.7) k/uL Basophils # 0.0 (0-0.2) k/uL PT 10.0 (9.0-12.0) sec INR 0.9 (<1.2) APTT 23.8 (22.0-30.0) sec Sodium 140 (137-145) mmol/L Potassium 3.9 (3.5-5.1) mmol/L Chloride 108 H (98-107) mmol/L Carbon Dioxide 26 (22-30) mmol/L Anion Gap 6 mmol/L BUN 14 (7-17) mg/dL Creatinine 0.39 L (0.52-1.04) mg/dL Est GFR (CKD-EPI)AfAm >90 (>60 ml/min/1.73 sqM) Est GFR (CKD-EPI)NonAf >90 (>60 ml/min/1.73 sqM) Glucose 92 (74-99) mg/dL Calcium 9.3 (8.4-10.2) mg/dL Total Bilirubin <0.1 L (0.2-1.3) mg/dL AST 35 (14-36) U/L ALT 28 (4-34) U/L Alkaline Phosphatase 128 H (38-126) U/L Troponin I (0.000-0.034) ng/mL Total Protein 6.4 (6.3-8.2) g/dL Albumin 3.9 (3.5-5.0) g/dL Blood Type Blood Type Recheck Bld Type Recheck Status Spec Expiration Date 09/26/20 09/26/20 Range/Units 20:57 20:57 WBC (3.8-10.6) k/uL RBC (3.80-5.40) m/uL Hgb (11.4-16.0) gm/dL Hct (34.0-46.0) % MCV (80.0-100.0) fL MCH (25.0-35.0) pg MCHC (31.0-37.0) g/dL RDW (11.5-15.5) % Plt Count (150-450) k/uL MPV Neutrophils % % Lymphocytes % % Monocytes % % Eosinophils % % Basophils % % Neutrophils # (1.3-7.7) k/uL Lymphocytes # (1.0-4.8) k/uL Monocytes # (0-1.0) k/uL Eosinophils # (0-0.7) k/uL Basophils # (0-0.2) k/uL PT (9.0-12.0) sec INR (<1.2) APTT (22.0-30.0) sec Sodium (137-145) mmol/L Potassium (3.5-5.1) mmol/L Chloride (98-107) mmol/L Carbon Dioxide (22-30) mmol/L Anion Gap mmol/L BUN (7-17) mg/dL Creatinine (0.52-1.04) mg/dL Est GFR (CKD-EPI)AfAm (>60 ml/min/1.73 sqM) Est GFR (CKD-EPI)NonAf (>60 ml/min/1.73 sqM) Glucose (74-99) mg/dL Calcium (8.4-10.2) mg/dL Total Bilirubin (0.2-1.3) mg/dL AST (14-36) U/L ALT (4-34) U/L Alkaline Phosphatase (38-126) U/L Troponin I <0.012 (0.000-0.034) ng/mL Total Protein (6.3-8.2) g/dL Albumin (3.5-5.0) g/dL Blood Type B Negative Blood Type Recheck B Neg Bld Type Recheck Status No Spec Expiration Date 09/29/2020 3764 - EKG Data EKG Comments: Sinus tachycardia Ventricular rate 102, pO2 108, QRS 86, QTC 474 Disposition Clinical Impression: Hematochezia, Diarrhea, Abdominal pain Disposition: HOME SELF-CARE Condition: Stable Instructions (If sedation given, give patient instructions): Abdominal Pain (ED) Additional Instructions: Please return to the Emergency Department if symptoms worsen or any other concerns. Prescriptions: Ondansetron Odt [Zofran Odt] 4 mg PO Q8HR PRN #10 tab PRN Reason: Nausea Is patient prescribed a controlled substance at d/c from ED?: No Referrals: Bia May MD [Primary Care Provider] - 1-2 days Time of Disposition: 23:15
[2020-09-26 21:12] LABS: Basophils % (A) 1 %; Eosinophils # (A) 0.2 k/uL (0-0.7); Eosinophils % (A) 4 %; HCT 37.3 % (34.0-46.0); HGB 11.7 gm/dL (11.4-16.0); Lymphocytes # (A) 1.6 k/uL (1.0-4.8); Lymphocytes % (A) 24 %; MCH 27.2 pg (25.0-35.0); MCHC 31.5 g/dL (31.0-37.0); MCV 86.5 fL (80.0-100.0); Mean Platelet Volume 6.9; Monocytes # (A) 0.4 k/uL (0-1.0); Monocytes % (A) 6 %; Neutrophils # (A) 4.3 k/uL (1.3-7.7); Neutrophils % (A) 63 %; Platelet Count 211 k/uL (150-450); RBC 4.31 m/uL (3.80-5.40); RDW 15.2 % (11.5-15.5); WBC 6.7 k/uL (3.8-10.6)
[2020-09-26 21:22] LABS: ALT 28 U/L (4-34); AST 35 U/L (14-36); African American GFR (CKD) >90 (>60 ml/min/1.73 sqM); Albumin 3.9 g/dL (3.5-5.0); Alkaline Phosphatase 128 U/L (38-126); Anion Gap 6 mmol/L; Blood Urea Nitrogen 14 mg/dL (7-17); Calcium 9.3 mg/dL (8.4-10.2); Carbon Dioxide 26 mmol/L (22-30); Chloride 108 mmol/L (98-107); Glucose 92 mg/dL (74-99); Non-African American GFR(CKD) >90 (>60 ml/min/1.73 sqM); Potassium 3.9 mmol/L (3.5-5.1); Sodium 140 mmol/L (137-145); Total Bilirubin <0.1 mg/dL (0.2-1.3); Total Protein 6.4 g/dL (6.3-8.2)
[2020-09-26 21:24] LABS: INR 0.9 (<1.2); Partial Thromboplastin Time 23.8 sec (22.0-30.0)
--- NOTE | 2020-09-26 22:30 | CT ---
EXAMINATION TYPE: CT abdomen pelvis w con DATE OF EXAM: 09/26/2020 COMPARISON: 12/26/2019 HISTORY: Lower LT side pain. Hx uterine/ovarian ca CT DLP: 848.9 mGycm Automated exposure control for dose reduction was used. CONTRAST: Performed with IV Contrast, patient injected with 100 mL of Isovue 300. Images obtained from the diaphragm to the floor the pelvis with IV contrast. There is mild subsegmental atelectasis at the lung bases. There are bilateral breast implants. Heart size is normal. There is no pericardial effusion. Stomach is intact. Liver spleen pancreas appear int act. There is dilation of the common bile duct. No significant dilation of the intrahepatic bile duct s. There are clips from cholecystectomy. Common bile duct measures almost 2 cm. Spleen is intact. There is no adrenal mass. There is no evidence of pancreatic mass. Kidneys show satisfactory contrast opacification. There is no hydronephrosis. There is 2 mm calculus posterior right kidney. There are small renal cysts. There is no hydronephrosis. Ureters are not dila wyatt. There is no retroperitoneal adenopathy. Bladder distends smoothly. There is no inguinal hernia. There are a few sigmoid diverticula. There is no diverticulitis. There is no mesenteric edema. There is no ascites or free air. There is no bowel obstruction. Appendix is not seen. There is metal artifact from posterior fusion surgery from L4 to S1. The vertebra have normal alignme nt. There is no significant compression deformity. The bony pelvis is intact. The hip joints are intact. There is hysterectomy. IMPRESSION: Mild subsegmental atelectasis at the lung bases unchanged. There is dilated biliary tree that is incr eased slightly compared to old exam. No obstructing lesion seen. Nonobstructing small right renal kathrin culus. No evidence of metastatic disease in this patient with a history of ovarian tumor.
[2020-09-26] MEDS ORDERED: HYDROcodone/APAP 5-325MG 1 EACH TAB PO STA (23:14)
[2020-09-26] MEDS ORDERED: ONDANSETRON 4 MG ODT STARTER PACK 2 TAB BTL PO STA (23:15)
[2020-09-26 23:25] VITALS: BP 130/87; PULSE 73; RESP 18
== END 2020-09-26 23:34 | disposition home or self-care (01) ==
LOC: EC 20:07
DX: K92.1 Melena (principal); R19.7 Diarrhea, unspecified; I11.0 Hypertensive heart disease with heart failure; I50.9 Heart failure, unspecified; F32.9 Major depressive disorder, single episode, unspecified; I25.2 Old myocardial infarction; M19.90 Unspecified osteoarthritis, unspecified site; G40.909 Epilepsy, unspecified, not intractable, without status epilepticus; Z90.89 Acquired absence of other organs; Z90.49 Acquired absence of other specified parts of digestive tract; Z90.710 Acquired absence of both cervix and uterus; Z90.09 Acquired absence of other part of head and neck; Z86.73 Personal history of transient ischemic attack (TIA), and cerebral infarction without residual deficits; Z85.43 Personal history of malignant neoplasm of ovary; Z85.3 Personal history of malignant neoplasm of breast; Z86.718 Personal history of other venous thrombosis and embolism
CPT/HCPCS: 36415; 93005; 86900; 86901; 80053; 84484; 85025; 85610; 85730; 86850; 86870; 86880; 74177; 99285; 96374; 96375; 96361 ×3; J2405; J1170; S0119; Q9967

== ENCOUNTER 2020-12-01 12:21 | Emergency (ER) | payer MEDICARE, OTHER ==
[2020-12-01 12:50] VITALS: BP 151/88; PULSE 74; RESP 17; TEMP 98.1
[2020-12-01 13:32] LABS: Appearance,Urine Clear (Clear); Bacteria,Urine Rare /hpf; Bilirubin,Urine Negative (Negative); Blood,Urine Trace (Negative); Color,Urine Light Yellow; Glucose,Urine (UA) Negative (Negative); Ketones,Urine Negative (Negative); Leukocyte Esterase,Urine Negative (Negative); Mucus,Urine Rare /hpf; Nitrite,Urine Negative (Negative); PH, Urine 5.5 (5.0-8.0); Protein,Urine Negative (Negative); RBC,Urine 1 /hpf (0-5); Specific Gravity,Urine 1.015 (1.001-1.035); Squamous Epithelial Cell,Urine <1 /hpf (0-4); Urobilinogen,Urine <2.0 mg/dL (<2.0); WBC,Urine 2 /hpf (0-5)
[2020-12-01] MEDS ORDERED: ACET/COD 300 MG/30 MG STARTER PACK 6 TAB BTL PO STA (13:58)
--- NOTE | 2020-12-01 13:58 | ED ---
General Adult HPI - General Chief complaint: Abdominal Pain Stated complaint: rectal bleeding Source: patient, RN notes reviewed, old records reviewed Mode of arrival: ambulatory Limitations: no limitations - History of Present Illness Initial comments: 65-year-old white female, alert and oriented 4, presents to the emergency room with complaints of falling off of a chair in the house yesterday and landing on her left side. Patient states that her right arm got caught in the lattice of the chair causing her to fall. She did sustain some bruising to the right upper arm and an abrasion to the left elbow. She states that she is wanted to make sure that she didn't do any damage inside her abdomen. She states that she does have hip pain with palpation but is able to ambulate with a steady gait. Patient is able to balance on her left leg and again on her right leg with no complaints of pain. She denies any nausea vomiting or diarrhea. She has had multiple surgeries in the past and she was mostly worried about the bowel resection she had done in October 2019. -: days(s) (1) Location: lower extremity (hip) Radiation: non-radiation Severity scale (1-10): 8 Quality: aching Consistency: constant Improves with: other (Treatment on [place]) Worsens with: none Associated Symptoms: denies other symptoms Treatments Prior to Arrival: other (tramadol [place]) - Related Data Home Medications Medication Instructions Recorded Confirmed Metoprolol Succinate (ER) [Toprol 100 mg PO DAILY 08/01/18 09/26/20 XL] Pantoprazole Sodium [Protonix] 40 mg PO BID 08/01/18 09/26/20 Naratriptan HCl 2.5 mg PO DAILY PRN 10/06/19 09/26/20 traMADol HCL 100 mg PO Q6H PRN 10/06/19 09/26/20 diazePAM [Valium] 5 mg VAGINAL BID PRN 11/24/19 09/26/20 Diphenoxylate HCl/Atropine 1 tab PO Q6H PRN 03/31/20 09/26/20 [Lomotil 2.5-0.025 mg Tablet] Lisinopril [Prinivil] 10 mg PO DAILY 03/31/20 09/26/20 Potassium Chloride ER [K-Dur 20] 40 meq PO DAILY 03/31/20 09/26/20 Ondansetron Odt [Zofran Odt] 8 mg PO Q8HR PRN 09/26/20 09/26/20 Previous Rx's Medication Instructions Recorded Ondansetron Odt [Zofran Odt] 4 mg PO Q8HR PRN #10 tab 09/26/20 Allergies Allergy/AdvReac Type Severity Reaction Status Date / Time carbamazepine [From Tegretol] Allergy increases Verified 12/01/20 12:50 seizures doxycycline Allergy Unknown Verified 12/01/20 12:50 morphine Allergy Rash/Hives Verified 12/01/20 12:50 Penicillins Allergy Anaphylaxis Verified 12/01/20 12:50 phenobarbital Allergy Rash/Hives Verified 12/01/20 12:50 phenytoin [From Dilantin] Allergy Anaphylaxis Verified 12/01/20 12:50 Patient : No Review of Systems ROS Statement: Those systems with pertinent positive or pertinent negative responses have been documented in the HPI. ROS Other: All systems not noted in ROS Statement are negative. Past Medical History Past Medical History: Cancer, Heart Failure, COPD, CVA/TIA, Deep Vein Thrombosis (DVT), GERD/Reflux, Hypertension, Myocardial Infarction ([place]), Neurologic Disorder, Osteoarthritis ([place]), Seizure Disorder Additional Past Medical History / Comment(s): History of bilateral breast cancer, ovarian cancer, uterine cancer, history of CVA back in 1982, history of irregular heart rate possibly atrial fibrillation many years back, history of petit mal seizures, coronary artery disease, previous [place], history of DVT, history of acid reflux, history of COPD, hypertension, osteoarthritis, multiple bowel obstruction requiring previous abdominal surgeries and bowel resection. She also has renal cysts Last Myocardial Infarction Date:: 1997 History of Any Multi-Drug Resistant Organisms: MRSA Date of last positivie culture/infection: 2003 MDRO Source:: lt hip Past Surgical History: Appendectomy, Back Surgery, Bowel Resection, Breast Surgery, Cholecystectomy, Hernia Repair, Hysterectomy, Orthopedic Surgery, Tonsillectomy Additional Past Surgical History / Comment(s): earnest mastectomy, oopherectomy back surgery x5 with last sx cage in back, bowel resection x5-6, earnest. carpal tunnel, lt rotator cuff repair Past Anesthesia/Blood Transfusion Reactions: Previous Problems w/ Anesthesia Additional Past Anesthesia/Blood Transfusion Reaction / Comment(s): experiences anxiety prior to surgery and agitiation. b/p elevates during surgery. woke up during surgery. difficult IV start Past Psychological History: Anxiety, Depression Smoking Status: Never smoker Past Alcohol Use History: Rare Past Drug Use History: None Reported - Past Family History Mother Family Medical History: Cancer Additional Family Medical History / Comment(s): lung Father Family Medical History: Cancer Additional Family Medical History / Comment(s): prostate Brother(s) Family Medical History: Cancer Additional Family Medical History / Comment(s): lung with metastasis General Exam Limitations: no limitations General appearance: alert, in no apparent distress Head exam: Present: atraumatic, normocephalic, normal inspection Eye exam: Present: normal appearance, PERRL, EOMI. Absent: scleral icterus, conjunctival injection, periorbital swelling ENT exam: Present: normal exam, normal oropharynx, mucous membranes moist Neck exam: Present: normal inspection, full ROM. Absent: tenderness, m eningismus, lymphadenopathy, thyromegaly Respiratory exam: Present: normal lung sounds bilaterally. Absent: respiratory distress, wheezes, rales, rhonchi, stridor, chest wall tenderness, accessory muscle use, decreased breath sounds, prolonged expiratory Cardiovascular Exam: Present: regular rate, normal rhythm, normal heart sounds. Absent: systolic murmur, diastolic murmur, rubs, gallop, clicks GI/Abdominal exam: Present: soft, tenderness (Left lower quadrant), normal bowel sounds. Absent: distended, guarding, rebound, rigid Extremities exam: Present: normal inspection, full ROM, normal capillary refill. Absent: tenderness, pedal edema, joint swelling, calf tenderness Left Hip exam: Present: full ROM (able to stand on one leg and bear weight with no difficulty), tenderness, pelvic stability. Absent: swelling, laceration, ecchymosis, erythema, external rotation, internal rotation, shortening Upper Leg exam: Present: full ROM. Absent: tenderness Knee exam: Present: full ROM. Absent: tenderness Lower Leg exam: Present: full ROM. Absent: tenderness Ankle exam: Present: full ROM. Absent: tenderness Neurovascular tendon exam: Present: no vascular compromise. Absent: pulse deficit, abnormal cap refill, extremity cold to touch, pallor Gait: observed and normal Back exam: Present: normal inspection, full ROM. Absent: tenderness, CVA tenderness (R), CVA tenderness (L), muscle spasm, paraspinal tenderness, vertebral tenderness Neurological exam: Present: alert, oriented X3, CN II-XII intact Psychiatric exam: Present: normal affect, normal mood Skin exam: Present: warm, dry, intact, normal color. Absent: rash, cyanosis, diaphoretic, erythema, petechiae, pallor, mottled Course Vital Signs 12/01/20 12:46 Temperature 98.1 F Pulse Rate 74 Respiratory 17 Rate Blood Pressure 151/88 O2 Sat by Pulse 100 Oximetry Medical Decision Making - Medical Decision Making Patient alert and oriented 4, walks with a steady gait. She is able to balance on her left leg and her right leg with no pain. Her abdomen is soft and nontender. There is no ecchymosis. Vital signs are stable. Patient is agreeable to being discharged home and following up with her primary care doctor. She was directed to return to the emergency room with any worsening pain, nausea vomiting diarrhea or abnormal bleeding. She is agreeable to this plan of care and will be provided Tylenol #3 as requested for pain relief. Case discussed with Dr. Schneider - Lab Data Lab Results 12/01/20 Range/Units 13:00 Urine Color Light Yellow Urine Appearance Clear (Clear) Urine pH 5.5 (5.0-8.0) Ur Specific Fitzpatrick 1.015 (1.001-1.035) Urine Protein Negative (Negative) Urine Glucose (UA) Negative (Negative) Urine Ketones Negative (Negative) Urine Blood Trace H (Negative) Urine Nitrite Negative (Negative) Urine Bilirubin Negative (Negative) Urine Urobilinogen <2.0 (<2.0) mg/dL Ur Leukocyte Esterase Negative (Negative) Urine RBC 1 (0-5) /hpf Urine WBC 2 (0-5) /hpf Ur Squamous Epith Cells <1 (0-4) /hpf Urine Bacteria Rare H (None) /hpf Urine Mucus Rare H (None) /hpf Disposition Clinical Impression: Fall Disposition: HOME SELF-CARE Condition: Good Instructions (If sedation given, give patient instructions): Fall Prevention for Older Adults (ED) Additional Instructions: Return to the emergency room with any increasing pain, abnormal bleeding, nausea vomiting or diarrhea. Follow-up with your primary care doctor this week. Take the medicine as prescribed Is patient prescribed a controlled substance at d/c from ED?: No Referrals: Bia May MD [Primary Care Provider] - 1-2 days Time of Disposition: 13:58
== END 2020-12-01 14:10 | disposition home or self-care (01) ==
LOC: EC 12:21
DX: M25.552 Pain in left hip (principal); M25.551 Pain in right hip; K62.5 Hemorrhage of anus and rectum; R10.9 Unspecified abdominal pain; I25.2 Old myocardial infarction; J44.9 Chronic obstructive pulmonary disease, unspecified; I11.0 Hypertensive heart disease with heart failure; I50.9 Heart failure, unspecified; K21.9 Gastro-esophageal reflux disease without esophagitis; M19.90 Unspecified osteoarthritis, unspecified site; Z88.1 Allergy status to other antibiotic agents; Z88.5 Allergy status to narcotic agent; Z88.0 Allergy status to penicillin; Z79.899 Other long term (current) drug therapy; Z86.73 Personal history of transient ischemic attack (TIA), and cerebral infarction without residual deficits; Z88.8 Allergy status to other drugs, medicaments and biological substances; W07.XXXA Fall from chair, initial encounter; Y93.89 Activity, other specified
CPT/HCPCS: 81001; 99284

== ENCOUNTER 2020-12-11 23:15 | Emergency (ER) | payer MEDICARE, OTHER ==
[2020-12-11 23:27] VITALS: TEMP 98.2
--- NOTE | 2020-12-12 00:01 | ED ---
Fall HPI - General Chief Complaint: Fall Stated Complaint: Fall Time Seen by Provider: 12/11/20 23:32 Source: patient Mode of arrival: wheelchair - History of Present Illness Initial Comments: 65 year-old female patient presents for evaluation after head injury today. Patient states around 4pm she tripped and fell into a brick wall. States she hit the left side her head. States she heard a "crack". States she has left sided headache and swelling. States the left side of her face feels numb and she has black spots in her vision. She reports mild headache and left sided neck pain. Denies any loss of consciousness after the injury. Denies numbness, tingling, or weakness to the extremities. Denies use of blood thinning medications. States she is also having some increased low back pain, history of surgery. No radiating pain. No saddle anesthesia or loss of bowel or bladder control. Reports history of closed head injury. Did take Tylenol at 7pm. She is currently at [facility] for opiate addiction. Patient denies any chest pain, shortness of breath, dizziness, weakness, abdominal pain, nausea, vomiting, or difficulties with bowel movements or urination. - Related Data Home Medications Medication Instructions Recorded Confirmed Metoprolol Succinate (ER) [Toprol 100 mg PO DAILY 08/01/18 09/26/20 XL] Pantoprazole Sodium [Protonix] 40 mg PO BID 08/01/18 09/26/20 Naratriptan HCl 2.5 mg PO DAILY PRN 10/06/19 09/26/20 traMADol HCL 100 mg PO Q6H PRN 10/06/19 09/26/20 diazePAM [Valium] 5 mg VAGINAL BID PRN 11/24/19 09/26/20 Diphenoxylate HCl/Atropine 1 tab PO Q6H PRN 03/31/20 09/26/20 [Lomotil 2.5-0.025 mg Tablet] Lisinopril [Prinivil] 10 mg PO DAILY 03/31/20 09/26/20 Potassium Chloride ER [K-Dur 20] 40 meq PO DAILY 03/31/20 09/26/20 Ondansetron Odt [Zofran Odt] 8 mg PO Q8HR PRN 09/26/20 09/26/20 Previous Rx's Medication Instructions Recorded Ondansetron Odt [Zofran Odt] 4 mg PO Q8HR PRN #10 tab 09/26/20 Allergies Allergy/AdvReac Type Severity Reaction Status Date / Time carbamazepine [From Tegretol] Allergy increases Verified 12/11/20 23:26 seizures doxycycline Allergy Unknown Verified 12/11/20 23:26 morphine Allergy Rash/Hives Verified 12/11/20 23:26 Penicillins Allergy Anaphylaxis Verified 12/11/20 23:26 phenobarbital Allergy Rash/Hives Verified 12/11/20 23:26 phenytoin [From Dilantin] Allergy Anaphylaxis Verified 12/11/20 23:26 Review of Systems ROS Statement: Those systems with pertinent positive or pertinent negative responses have been documented in the HPI. ROS Other: All systems not noted in ROS Statement are negative. Past Medical History Past Medical History: Cancer, Heart Failure, COPD, CVA/TIA, Deep Vein Thrombosis (DVT), GERD/Reflux, Hypertension, Myocardial Infarction (MT), Neurologic Disorder, Osteoarthritis (OA), Seizure Disorder Additional Past Medical History / Comment(s): History of bilateral breast cancer, ovarian cancer, uterine cancer, history of CVA back in 1982, history of irregular heart rate possibly atrial fibrillation many years back, history of petit mal seizures, coronary artery disease, previous MT, history of DVT, history of acid reflux, history of COPD, hypertension, osteoarthritis, multiple bowel obstruction requiring previous abdominal surgeries and bowel resection. She also has renal cysts Last Myocardial Infarction Date:: 1997 History of Any Multi-Drug Resistant Organisms: MRSA Date of last positivie culture/infection: 2003 MDRO Source:: lt hip Past Surgical History: Appendectomy, Back Surgery, Bowel Resection, Breast Surgery, Cholecystectomy, Hernia Repair, Hysterectomy, Orthopedic Surgery, Tonsillectomy Additional Past Surgical History / Comment(s): earnest mastectomy, oopherectomy back surgery x5 with last sx cage in back, bowel resection x5-6, earnest. carpal tunnel, lt rotator cuff repair Past Anesthesia/Blood Transfusion Reactions: Previous Problems w/ Anesthesia Additional Past Anesthesia/Blood Transfusion Reaction / Comment(s): experiences anxiety prior to surgery and agitiation. b/p elevates during surgery. woke up during surgery. difficult IV start Past Psychological History: Anxiety, Depression Smoking Status: Never smoker Past Alcohol Use History: Rare Past Drug Use History: None Reported - Past Family History Mother Family Medical History: Cancer Additional Family Medical History / Comment(s): lung Father Family Medical History: Cancer Additional Family Medical History / Comment(s): prostate Brother(s) Family Medical History: Cancer Additional Family Medical History / Comment(s): lung with metastasis General Exam General appearance: alert, in no apparent distress, other (This is a well- developed, well-nourished adult female patient in no acute distress. Vital signs upon presentation are temperature 98.2F, pulse 63, respirations 17, blood pressure 154/80, pulse ox 96% on room air.) Eye exam: Present: normal appearance, PERRL, EOMI. Absent: scleral icterus, conjunctival injection, periorbital swelling ENT exam: Present: normal exam, normal oropharynx, mucous membranes moist Respiratory exam: Present: normal lung sounds bilaterally. Absent: respiratory distress, wheezes, rales, rhonchi, stridor Cardiovascular Exam: Present: regular rate, normal rhythm, normal heart sounds. Absent: systolic murmur, diastolic murmur, rubs, gallop, clicks GI/Abdominal exam: Present: soft, normal bowel sounds. Absent: distended, tenderness, guarding, rebound, rigid Extremities exam: Present: normal inspection, full ROM, normal capillary refill, other (Skin to the legs is pink, warm, dry. Cap refill less than 3 seconds. Pedal and posttibial pulses are 2+.). Absent: tenderness, pedal edema, joint swelling, calf tenderness Back exam: Present: vertebral tenderness (Lumbar) Neurological exam: Present: alert, oriented X3, CN II-XII intact Expanded Speech: Present: fluid speech Cranial nerves: EOM's Intact: Normal, Nystagmus: Normal Motor strength exam: RUE: 5, LUE: 5, RLE: 5, LLE: 5 Psychiatric exam: Present: normal affect, normal mood Skin exam: Present: warm, dry, intact, normal color. Absent: rash Course Vital Signs 12/11/20 12/12/20 23:22 01:00 Temperature 98.2 F Pulse Rate 63 51 L Respiratory 17 15 Rate Blood Pressure 154/80 148/81 O2 Sat by Pulse 96 98 Oximetry Medical Decision Making - Medical Decision Making 65 year-old female patient presented to the emergency department for evaluation of head injury. She also reported gas leak at the facility and wants CO testing. She is neurologically intact with no focal deficits. CT brain and C-spine x- ray of the lumbar spine is obtained and were negative. Carbon monoxide levels normal. She'll be discharged back to [facility]. He is instructed to follow-up the primary care physician for recheck in 1-2 days. Return parameters discussed in detail. She verbalizes understanding and agrees with this plan. My attending is Dr. Salter. - Lab Data Lab Results 12/12/20 Range/Units 01:05 Carbon Monoxide, Quant 1.5 (<10.0) % - Radiology Data Radiology results: report reviewed, image reviewed Disposition Clinical Impression: Scalp hematoma Disposition: HOME SELF-CARE Condition: Good Instructions (If sedation given, give patient instructions): Head Injury (ED), Hematoma (ED) Additional Instructions: Apply ice to the head. Follow up with the primary care physician for recheck in 1-2 days. Return to the emergency department for any new, worsening, or concerning symptoms. Is patient prescribed a controlled substance at d/c from ED?: No Referrals: Bia May MD [Primary Care Provider] - 1-2 days Time of Disposition: 01:58
--- NOTE | 2020-12-12 00:15 | XR ---
EXAMINATION TYPE: XR lumbar spine 2 or 3V DATE OF EXAM: 12/12/2020 COMPARISON: NONE HISTORY: Low back pain. Fall. TECHNIQUE: 3 views FINDINGS: There is posterior fusion surgery from L4 to S1. There is disc prosthesis at L4-5 and L5-S1 . I see no compression fracture. There is osteopenia. Sacroiliac joints are intact. There is laminect alysha in the lower lumbar spine. IMPRESSION: No acute bony abnormality. No fracture. No change compared to old CT scan of 09/26/2020.
--- NOTE | 2020-12-12 00:26 | CT ---
EXAMINATION TYPE: CT brain cspine wo con DATE OF EXAM: 12/12/2020 COMPARISON: 03/31/2020 HISTORY: fall Headache. Neck pain CT DLP: 1228.8 mGycm Automated exposure control for dose reduction was used. The ventricles and sulci appear normal. There is no mass effect nor midline shift. There is no sign o f intracranial hemorrhage. The calvarium is intact. The cervical vertebra have fairly normal spacing and alignment. Posterior elements are intact. Facet joints are intact. There is no subluxation. There is fairly normal aeration of the mastoid sinuses. Occipital bone is intact. IMPRESSION: Negative CT scan of the cervical spine. No fracture. Negative scan of the brain. Small left temporal parietal scalp hematoma is noted. No adverse change compared to old exam.
[2020-12-12] MEDS ORDERED: ONDANSETRON ODT 4 MG TAB PO STA (00:35)
[2020-12-12] MEDS ORDERED: KETOROLAC 15 MG/ML 1 ML VIAL IM STA (00:35)
[2020-12-12 01:09] VITALS: BP 148/81; PULSE 51; RESP 15
== END 2020-12-12 02:15 | disposition home or self-care (01) ==
LOC: EC 23:15
DX: S00.03XA Contusion of scalp, initial encounter (principal); M54.2 Cervicalgia; M54.5 Low back pain; I10 Essential (primary) hypertension; J44.9 Chronic obstructive pulmonary disease, unspecified; I25.2 Old myocardial infarction; M19.90 Unspecified osteoarthritis, unspecified site; K21.9 Gastro-esophageal reflux disease without esophagitis; Z86.73 Personal history of transient ischemic attack (TIA), and cerebral infarction without residual deficits; Z88.8 Allergy status to other drugs, medicaments and biological substances; Z88.1 Allergy status to other antibiotic agents; Z88.5 Allergy status to narcotic agent; Z88.0 Allergy status to penicillin; Z79.899 Other long term (current) drug therapy; W01.198A Fall on same level from slipping, tripping and stumbling with subsequent striking against other object, initial encounter
CPT/HCPCS: 82375; 72100; 72125; 70450; 99284; 96372; J1885

== ENCOUNTER → 2021-11-28 | Outpatient (CLI) | payer MEDICARE, OTHER ==
--- NOTE | 2021-11-28 15:52 | XR ---
KUB HISTORY: Kidney stone KUB submitted and correlated to CT scan 09/26/2020 Calcification centered over the upper pole left kidney measures approximately 18 mm in transverse dim ension, possible staghorn calculus. There are injection granuloma present bilaterally. Postop changes are noted to the lumbosacral spine. Metallic flake-like density thought to be present within the bow el throughout the abdomen and likely due to medication. Surgical clips present right lung. There is s clerosis involving the inferior pubic ramus suspicious for fracture of indeterminate age, question so me sclerosis involving the superior pubic ramus on the right as well. No evident bowel obstruction or pneumoperitoneum. IMPRESSION: Possible arthropathy staghorn calculus upper pole left kidney. Possible fractures of the pelvis as described. Correlate for history of trauma. Additional findings above.
== END | disposition home or self-care (01) ==
LOC: RADXRMAIN 14:08
PROVIDERS: ATTEND Urology
DX: N20.0 Calculus of kidney (principal)
CPT/HCPCS: 74018

== ENCOUNTER 2022-03-01 06:40 | Observation (INO) | payer MEDICARE, OTHER ==
[2022-03-01] MEDS ORDERED: MORPHINE SULFATE 2 MG/ML SYRINGE IVP STA (07:27)
[2022-03-01] MEDS ORDERED: PANTOPRAZOLE 40 MG/10 ML VIAL IVP STA (07:27)
[2022-03-01] MEDS ORDERED: SODIUM CHLORIDE 0.9% 1,000 ML IV STA (07:27)
[2022-03-01] MEDS ORDERED: SODIUM CHLORIDE 0.9% 500 ML 500 ML IV STA (07:29)
[2022-03-01] MEDS ORDERED: ONDANSETRON 4 MG/2 ML VIAL IVP STA (07:37)
--- NOTE | 2022-03-01 07:40 | ED ---
General Adult HPI - General Chief complaint: GI Bleed Stated complaint: GI bleed Time Seen by Provider: 03/01/22 07:15 Source: patient Mode of arrival: ambulatory Limitations: no limitations - History of Present Illness Initial comments: Patient is a 67-year-old female with past medical history remarkable for multiple bowel resections, GI bleed, left-sided 9 mm kidney stone, COPD, hypertension, CA, who presents emergency Department complaining of GI bleed. Patient states that she has been noticing small amounts of blood on the paper when she wipes over the last 7-10 days. 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 States that this morning when she had one that was bloody initially. Describes it as bright red blood mixed with Brown stool. Then it was colored [place]. No BM since. She endorses nausea but no episodes of emesis. Has been having left lower quadrant abdominal pain since this morning. Was having cramping previously but has gotten worse. States the pain does not radiate. Does have a history of diverticulitis. Had a colonoscopy 6 months that was clean. Denies any chest pain, fevers, chills, shortness of breath. Has no known sick contacts. Has no other acute complaints at this time. Patient has had many bowel resections, most recently [address] Artis.Patient states that she is not on blood thinners. She does take aspirin daily. - Related Data Home Medications Medication Instructions Recorded Confirmed Metoprolol Succinate (ER) [Toprol 100 mg PO DAILY 08/01/18 03/01/22 XL] Pantoprazole Sodium [Protonix] 40 mg PO BID 08/01/18 03/01/22 diazePAM [Valium] 5 mg VAGINAL BID PRN 11/24/19 03/01/22 Diphenoxylate HCl/Atropine 1 tab PO Q6H PRN 03/31/20 03/01/22 [Lomotil 2.5-0.025 mg Tablet] Potassium Chloride ER [K-Dur 20] 40 meq PO DAILY 03/31/20 03/01/22 lisinopriL [Prinivil] 10 mg PO DAILY 03/31/20 03/01/22 Ondansetron Odt [Zofran Odt] 8 mg PO Q8H PRN 09/26/20 03/01/22 Cyanocobalamin [Vitamin B-12 1,000 mcg SQ SA 03/01/22 03/01/22 Injection] Dicyclomine [Bentyl] 10 mg PO TID PRN 03/01/22 03/01/22 Furosemide [Lasix] 80 mg PO DAILY 03/01/22 03/01/22 Melatonin [Melatonin ER] 10 mg PO HS 03/01/22 03/01/22 SUMAtriptan succinate [Imitrex] 50 mg PO BID PRN 03/01/22 03/01/22 Allergies Allergy/AdvReac Type Severity Reaction Status Date / Time doxycycline Allergy Unknown Verified 03/01/22 11:04 morphine Allergy Rash/Hives Verified 03/01/22 11:04 Penicillins Allergy Anaphylaxis Verified 03/01/22 11:04 phenobarbital Allergy Rash/Hives Verified 03/01/22 11:04 phenytoin [From Dilantin] Allergy Anaphylaxis Verified 03/01/22 11:04 carbamazepine [From Tegretol] AdvReac increases Verified 03/01/22 11:04 seizures Review of Systems ROS Statement: Those systems with pertinent positive or pertinent negative responses have been documented in the HPI. Review of Systems: CONST: Denies fever EYES: Denies blurry vision ENT: Denies nasal congestion C/V: Denies Chest pain RESP: Denies shortness of breath GI: Endorses abdominal pain : Denies dysuria SKIN: Denies rash. MSK: Denies joint pain. NEURO: Denies headache ROS Other: All systems not noted in ROS Statement are negative. Past Medical History Past Medical History: Cancer, Heart Failure, COPD, CVA/TIA, Deep Vein Thrombosis (DVT), GERD/Reflux, Hypertension, Myocardial Infarction (CA), Neurologic Disorder, Osteoarthritis (OA), Seizure Disorder Additional Past Medical History / Comment(s): History of bilateral breast cancer, ovarian cancer, uterine cancer, history of CVA back in 1982, history of irregular heart rate possibly atrial fibrillation many years back, history of petit mal seizures, coronary artery disease, previous CA, history of DVT, history of acid reflux, history of COPD, hypertension, osteoarthritis, multiple bowel obstruction requiring previous abdominal surgeries and bowel resection. She also has renal cysts Last Myocardial Infarction Date:: 1997 History of Any Multi-Drug Resistant Organisms: MRSA Date of last positivie culture/infection: 2003 MDRO Source:: lt hip Past Surgical History: Appendectomy, Back Surgery, Bowel Resection, Breast Surgery, Cholecystectomy, Hernia Repair, Hysterectomy, Orthopedic Surgery, Tonsillectomy Additional Past Surgical History / Comment(s): earnest mastectomy, oopherectomy back surgery x5 with last sx cage in back, bowel resection x5-6, earnest. carpal tunnel, lt rotator cuff repair Past Anesthesia/Blood Transfusion Reactions: Previous Problems w/ Anesthesia Additional Past Anesthesia/Blood Transfusion Reaction / Comment(s): experiences anxiety prior to surgery and agitiation. b/p elevates during surgery. woke up during surgery. difficult IV start Past Psychological History: Anxiety, Depression Smoking Status: Never smoker Past Alcohol Use History: Rare Past Drug Use History: None Reported - Past Family History Mother Family Medical History: Cancer Additional Family Medical History / Comment(s): lung Father Family Medical History: Cancer Additional Family Medical History / Comment(s): prostate Brother(s) Family Medical History: Cancer Additional Family Medical History / Comment(s): lung with metastasis General Exam - General Exam Comments Initial Comments: General: Appears in no acute distress. HEAD: Normal with no signs of head trauma. EYES: PERRLA, EOMI, conjunctiva normal, no discharge. ENT: Hearing grossly intact, normal oropharynx. RESPIRATORY: Clear breath sounds bilaterally. No wheezes, rales, or rhonchi. C/V: Regular rate and rhythm. S1 and S2 auscultated, no edema, peripheral pulses 2+ and intact throughout ABD: Abdomen soft, nondistended. Tender to palpation in the left lower quadrant. No guarding. No rebound tenderness. No peritoneal signs. No CVA tenderness to percussion. Rectal exam was performed in the presence of a female staff member. Good tone. No gross blood. No hemorrhoids. No obvious source of bleeding. EXT: Normal range of motion, no obvious deformity SKIN: No rashes or lesions observed on exposed skin. NEURO: Alert and oriented 4. Limitations: no limitations Course Vital Signs 03/01/22 03/01/22 03/01/22 06:44 08:04 11:00 Temperature 98 F 98.3 F Pulse Rate 115 H 90 96 Respiratory 18 18 18 Rate Blood Pressure 135/89 113/76 136/93 O2 Sat by Pulse 96 96 97 Oximetry Medical Decision Making - Medical Decision Making Based on the patient's presentation and physical exam, I am concerned for possible GI bleeding the patient. Cannot rule out other intra-abdominal process at this time either. We will obtain abdominal laboratory studies, screening EKG, as well as a CT abdomen and pelvis with GI bleed protocol. Patient asymptomatic which with IV pain medications, antiemetics, fluids. Vital signs within acceptable limits. EKG shows no signs of acute ischemia.Hemoglobin is within acceptable limits.. Remainder the labs are unremarkable. Urinalysis is concerning for a UTI. Occult blood is positive. CT imaging is concerned for an old resolved GI bleed versus active GI bleed. I did speak with Dr. Linder who is covering for Dr. Artis today. Dr. Artis is in house and she recommended I contact him. I did speak with him over the phone, we discussed obtaining a red blood cell scan. I contacted nuclear medicine and will be multiple hours before the scan can be completed. They need to locate and obtained the contrast. We repeated the CBC and hemoglobin following 500 mL fluid bolus is now 12.2. I discussed at length transfer versus patient remaining at our hospital. Dr. Artis reviewed the imaging as well as labs. He believes this is likely not an active bleed. He was comfortable admitting the patient to medicine and following along as a consult. Requested the patient be made nothing by mouth. He will follow up the nuclear med Red cell scan. I was in agreement this plan.Patient was started on antibiotics for UTI. I updated the patient. She remains asymptomatic at this time. No further bowel movements per her vitals remained within acceptable limits. She was in agreement this plan. Patient is made nothing by mouth. I spoke with the admitting team, Dr. Marion accepted the patient. Patient was admitted in stable condition. - Lab Data Result diagrams: 03/01/22 09:57 03/01/22 07:33 Lab Results 03/01/22 03/01/22 03/01/22 Range/Units 07:10 07:33 07:33 WBC 7.5 (3.8-10.6) k/uL RBC 4.58 (3.80-5.40) m/uL Hgb 13.5 (11.4-16.0) gm/dL Hct 39.6 (34.0-46.0) % MCV 86.5 (80.0-100.0) fL MCH 29.4 (25.0-35.0) pg MCHC 34.0 (31.0-37.0) g/dL RDW 14.7 (11.5-15.5) % Plt Count 235 (150-450) k/uL MPV 8.2 Neutrophils % 70 % Lymphocytes % 19 % Monocytes % 6 % Eosinophils % 2 % Basophils % 0 % Neutrophils # 5.3 (1.3-7.7) k/uL Lymphocytes # 1.4 (1.0-4.8) k/uL Monocytes # 0.5 (0-1.0) k/uL Eosinophils # 0.1 (0-0.7) k/uL Basophils # 0.0 (0-0.2) k/uL PT (9.0-12.0) sec INR (<1.2) APTT (22.0-30.0) sec Sodium (137-145) mmol/L Potassium (3.5-5.1) mmol/L Chloride (98-107) mmol/L Carbon Dioxide (22-30) mmol/L Anion Gap mmol/L BUN (7-17) mg/dL Creatinine (0.52-1.04) mg/dL Est GFR (CKD-EPI)AfAm (>60 ml/min/1.73 sqM) Est GFR (CKD-EPI)NonAf (>60 ml/min/1.73 sqM) Glucose (74-99) mg/dL Plasma Lactic Acid Eduardo (0.7-2.0) mmol/L Calcium (8.4-10.2) mg/dL Magnesium (1.6-2.3) mg/dL Total Bilirubin (0.2-1.3) mg/dL AST (14-36) U/L ALT (4-34) U/L Alkaline Phosphatase (38-126) U/L Total Protein (6.3-8.2) g/dL Albumin (3.5-5.0) g/dL Amylase (30-110) U/L Lipase (23-300) U/L Urine Color Urine Appearance (Clear) Urine pH (5.0-8.0) Ur Specific [place] (1.001-1.035) Urine Protein (Negative) Urine Glucose (UA) (Negative) Urine Ketones (Negative) Urine Blood (Negative) Urine Nitrite (Negative) Urine Bilirubin (Negative) Urine Urobilinogen (<2.0) mg/dL Ur Leukocyte Esterase (Negative) Urine RBC (0-5) /hpf Urine WBC (0-5) /hpf Ur Squamous Epith Cells (0-4) /hpf Urine Bacteria (None) /hpf Urine Mucus (None) /hpf Stool Occult Blood Negative (Negative) Blood Type B Negative Blood Type Recheck B Neg Bld Type Recheck Status No Antibody Screen POSITIVE Antibody Identification Anti-K Direct Antiglob Test Negative Spec Expiration Date 03/04/2022230903/01/22 03/01/22 03/01/22 Range/Units 07:33 07:33 07:33 WBC (3.8-10.6) k/uL RBC (3.80-5.40) m/uL Hgb (11.4-16.0) gm/dL Hct (34.0-46.0) % MCV (80.0-100.0) fL MCH (25.0-35.0) pg MCHC (31.0-37.0) g/dL RDW (11.5-15.5) % Plt Count (150-450) k/uL MPV Neutrophils % % Lymphocytes % % Monocytes % % Eosinophils % % Basophils % % Neutrophils # (1.3-7.7) k/uL Lymphocytes # (1.0-4.8) k/uL Monocytes # (0-1.0) k/uL Eosinophils # (0-0.7) k/uL Basophils # (0-0.2) k/uL PT 13.5 H (9.0-12.0) sec INR 1.3 H (<1.2) APTT 27.0 (22.0-30.0) sec Sodium 144 (137-145) mmol/L Potassium 3.5 (3.5-5.1) mmol/L Chloride 110 H (98-107) mmol/L Carbon Dioxide 20 L (22-30) mmol/L Anion Gap 14 mmol/L BUN 9 (7-17) mg/dL Creatinine 0.62 (0.52-1.04) mg/dL Est GFR (CKD-EPI)AfAm >90 (>60 ml/min/1.73 sqM) Est GFR (CKD-EPI)NonAf >90 (>60 ml/min/1.73 sqM) Glucose 92 (74-99) mg/dL Plasma Lactic Acid Eduardo 1.4 (0.7-2.0) mmol/L Calcium 9.1 (8.4-10.2) mg/dL Magnesium 1.9 (1.6-2.3) mg/dL Total Bilirubin 0.3 (0.2-1.3) mg/dL AST 27 (14-36) U/L ALT 30 (4-34) U/L Alkaline Phosphatase 161 H (38-126) U/L Total Protein 6.8 (6.3-8.2) g/dL Albumin 4.0 (3.5-5.0) g/dL Amylase 60 (30-110) U/L Lipase 118 (23-300) U/L Urine Color Urine Appearance (Clear) Urine pH (5.0-8.0) Ur Specific [place] (1.001-1.035) Urine Protein (Negative) Urine Glucose (UA) (Negative) Urine Ketones (Negative) Urine Blood (Negative) Urine Nitrite (Negative) Urine Bilirubin (Negative) Urine Urobilinogen (<2.0) mg/dL Ur Leukocyte Esterase (Negative) Urine RBC (0-5) /hpf Urine WBC (0-5) /hpf Ur Squamous Epith Cells (0-4) /hpf Urine Bacteria (None) /hpf Urine Mucus (None) /hpf Stool Occult Blood (Negative) Blood Type Blood Type Recheck Bld Type Recheck Status Antibody Screen Antibody Identification Direct Antiglob Test Spec Expiration Date 03/01/22 03/01/22 Range/Units 08:44 09:57 WBC 7.5 (3.8-10.6) k/uL RBC 4.12 (3.80-5.40) m/uL Hgb 12.2 (11.4-16.0) gm/dL Hct 35.9 (34.0-46.0) % MCV 87.2 (80.0-100.0) fL MCH 29.6 (25.0-35.0) pg MCHC 34.0 (31.0-37.0) g/dL RDW 14.3 (11.5-15.5) % Plt Count 201 (150-450) k/uL MPV 7.8 Neutrophils % % Lymphocytes % % Monocytes % % Eosinophils % % Basophils % % Neutrophils # (1.3-7.7) k/uL Lymphocytes # (1.0-4.8) k/uL Monocytes # (0-1.0) k/uL Eosinophils # (0-0.7) k/uL Basophils # (0-0.2) k/uL PT (9.0-12.0) sec INR (<1.2) APTT (22.0-30.0) sec Sodium (137-145) mmol/L Potassium (3.5-5.1) mmol/L Chloride (98-107) mmol/L Carbon Dioxide (22-30) mmol/L Anion Gap mmol/L BUN (7-17) mg/dL Creatinine (0.52-1.04) mg/dL Est GFR (CKD-EPI)AfAm (>60 ml/min/1.73 sqM) Est GFR (CKD-EPI)NonAf (>60 ml/min/1.73 sqM) Glucose (74-99) mg/dL Plasma Lactic Acid Eduardo (0.7-2.0) mmol/L Calcium (8.4-10.2) mg/dL Magnesium (1.6-2.3) mg/dL Total Bilirubin (0.2-1.3) mg/dL AST (14-36) U/L ALT (4-34) U/L Alkaline Phosphatase (38-126) U/L Total Protein (6.3-8.2) g/dL Albumin (3.5-5.0) g/dL Amylase (30-110) U/L Lipase (23-300) U/L Urine Color Yellow Urine Appearance Clear (Clear) Urine pH 6.0 (5.0-8.0) Ur Specific [place] 1.049 H (1.001-1.035) Urine Protein 1+ H (Negative) Urine Glucose (UA) Negative (Negative) Urine Ketones Negative (Negative) Urine Blood Large H (Negative) Urine Nitrite Positive H (Negative) Urine Bilirubin Negative (Negative) Urine Urobilinogen <2.0 (<2.0) mg/dL Ur Leukocyte Esterase Trace H (Negative) Urine RBC 12 H (0-5) /hpf Urine WBC 7 H (0-5) /hpf Ur Squamous Epith Cells <1 (0-4) /hpf Urine Bacteria Occasional H (None) /hpf Urine Mucus Few H (None) /hpf Stool Occult Blood (Negative) Blood Type Blood Type Recheck Bld Type Recheck Status Antibody Screen Antibody Identification Direct Antiglob Test Spec Expiration Date - EKG Data -: EKG Interpreted by Me EKG Comments: 12-lead Electrocardiogram Interpretation Note EKG was reviewed and interpreted by myself. 12-lead ECG performed at 0727 is interpreted by me as revealing normal sinus rhythm at a rate of 96 beats per minute. [place] is normal. CA interval is 199 ms, QRS duration is 90 ms, QTc is 407 ms.. There were no ST or T wave abnormalities to suggest myocardial ischemia or injury. R wave progression across the precordium was satisfactory. By my interpretation this EKG is non-diagnostic for acute ischemia. Disposition Clinical Impression: Hematochezia, UTI (urinary tract infection) Narrative: concern for gi bleed Disposition: ADMITTED IP TO THIS HOSP Condition: Stable Time of Disposition: 10:35
[2022-03-01 07:46] LABS: Basophils % (A) 0 %; Eosinophils # (A) 0.1 k/uL (0-0.7); Eosinophils % (A) 2 %; HCT 39.6 % (34.0-46.0); HGB 13.5 gm/dL (11.4-16.0); Lymphocytes # (A) 1.4 k/uL (1.0-4.8); Lymphocytes % (A) 19 %; MCH 29.4 pg (25.0-35.0); MCV 86.5 fL (80.0-100.0); Mean Platelet Volume 8.2; Monocytes # (A) 0.5 k/uL (0-1.0); Monocytes % (A) 6 %; Neutrophils # (A) 5.3 k/uL (1.3-7.7); Neutrophils % (A) 70 %; Platelet Count 235 k/uL (150-450); RBC 4.58 m/uL (3.80-5.40); RDW 14.7 % (11.5-15.5); WBC 7.5 k/uL (3.8-10.6)
[2022-03-01 07:55] LABS: INR 1.3 (<1.2); Prothrombin Time 13.5 sec (9.0-12.0)
[2022-03-01 08:10] LABS: ALT 30 U/L (4-34); AST 27 U/L (14-36); African American GFR (CKD) >90 (>60 ml/min/1.73 sqM); Alkaline Phosphatase 161 U/L (38-126); Amylase 60 U/L (30-110); Anion Gap 14 mmol/L; Blood Urea Nitrogen 9 mg/dL (7-17); Calcium 9.1 mg/dL (8.4-10.2); Carbon Dioxide 20 mmol/L (22-30); Chloride 110 mmol/L (98-107); Glucose 92 mg/dL (74-99); Lipase 118 U/L (23-300); Magnesium 1.9 mg/dL (1.6-2.3); Non-African American GFR(CKD) >90 (>60 ml/min/1.73 sqM); Potassium 3.5 mmol/L (3.5-5.1); Sodium 144 mmol/L (137-145); Total Bilirubin 0.3 mg/dL (0.2-1.3); Total Protein 6.8 g/dL (6.3-8.2)
[2022-03-01 09:09] LABS: Appearance,Urine Clear (Clear); Bacteria,Urine Occasional /hpf; Bilirubin,Urine Negative (Negative); Blood,Urine Large (Negative); Color,Urine Yellow; Glucose,Urine (UA) Negative (Negative); Ketones,Urine Negative (Negative); Leukocyte Esterase,Urine Trace (Negative); Mucus,Urine Few /hpf; Nitrite,Urine Positive (Negative); Protein,Urine 1+ (Negative); RBC,Urine 12 /hpf (0-5); Squamous Epithelial Cell,Urine <1 /hpf (0-4); Urobilinogen,Urine <2.0 mg/dL (<2.0); WBC,Urine 7 /hpf (0-5)
[2022-03-01 09:13] LABS: Specific Gravity,Urine 1.049 (1.001-1.035)
--- NOTE | 2022-03-01 09:19 | CT ---
EXAMINATION TYPE: CT angio abdomen pelvis DATE OF EXAM: 03/01/2022 HISTORY: Possible GI bleed. Anemia. Blood in stool and pain. History of [address] DLP: 1435.4mGycm Automated Exposure Control for Dose Reduction was Utilized. CONTRAST: CT scan of the abdomen and pelvis is performed without oral and without and with IV Contrast, patient injected with 100 mL of Isovue 370. GI bleed protocol. COMPARISON: CT abdomen and pelvis September 26, 2020 and older studies FINDINGS: Vascular: Noncontrast images show no suspicious hyperdense material or intramural hematoma. Postcontr ast images show narrowing at the celiac artery origin sagittal image 93. Patent SMA is seen. Patent I MA is identified. Iliac arteries appear within normal limits. Femoral arteries in the bilateral groin appear within normal limits. LUNG BASES: Partial visualization of bilateral breast implants similar to prior studies, left breast implant redemonstrates rim calcification. Dependent atelectasis both bases. LIVER/GB: Gallbladder noted surgically absent. Fairly moderate mid segment extra hepatic biliary dil atation up to 16 mm inferior to the yusef hepatis coronal image 65 remains present and stable. No sig nificant intrahepatic biliary dilatation. The bile duct tapers fairly well dilated to the ampulla sim ilar to prior studies. Visualized liver heterogeneously hypodense on noncontrast images consistent wi th fatty infiltrative hepatocellular disease. PANCREAS: Mild generalized fat replaced atrophy redemonstrated. SPLEEN: No significant abnormality is seen. ADRENALS: No significant abnormality is seen. KIDNEYS: There is 3 mm upper pole right renal calculus axial image 28 on noncontrast images. There is new large staghorn type calculus upper pole of the left kidney measuring approximately and 1.7 cm lo ng axis axial image 27. There is symmetric corticomedullary uptake with multiple small thin-walled cy sts seen throughout both kidneys majority subcentimeter in size. No hydronephrosis is evident bilater ally. Nondependent focus of air in bladder should be correlated clinically for recent catheterization otherwise other etiologies need to be considered. There are 2 bilateral renal arteries just normal v ariant BOWEL: Stomach poorly distended and thus suboptimally evaluated. No suspicious dilatation of duodenal sweep. Proximal small bowel loops in the left upper and midabdomen show no suspicious dilatation. Lo w-lying cecum into the right pelvis is redemonstrated. Diverticula throughout the left and sigmoid co jyoti are seen. Surgical sutures near prominent bowel loop in the anterior left upper to mid pelvis is redemonstrated. Some hyperdense material noted on noncontrast images in the distal bowel possible ing ested food product. Delayed images show increasing hyperdense material within small bowel loop in the midline in the mid pelvis running from the cecum to the slightly more superior surgical sutures jassi cent to the prominent bowel loop in the anterior upper pelvis just left of midline. Feeding vessel no t well visualized but this is likely source of active hemorrhage. UTERUS/ADNEXA: Uterus surgically absent or markedly atrophic. Scattered pelvic phleboliths. LYMPH NODES: No greater than 1cm abdominal or pelvic lymph nodes are appreciated. OSSEOUS STRUCTURES: Posterior interpedicular rods and screws transfix L4-S1 levels. Artificial disc m aterial. Left-sided screw appears to encroach upon the draining left internal iliac vein axial image 55 series 201 and sagittal image 97 series 504 without evidence of thrombus on delayed images. [employer] ior decompression with laminectomy defect lower lumbar spine is redemonstrated OTHER: Dystrophic calcifications in the posterior gluteal soft tissue is redemonstrated. IMPRESSION: 1. Delayed images show suspicious distal small bowel loop with more hyperdense material in the anteri or midline of the mid pelvis presumed the source of the active GI hemorrhage just proximal to the cec um, running between this and site of surgical sutures and fixed dilated distal small bowel loop. Advi se endovascular surgical referral.
[2022-03-01] MEDS ORDERED: MORPHINE SULFATE 4 MG/ML SYRINGE IVP STA (10:05)
[2022-03-01 10:07] LABS: HCT 35.9 % (34.0-46.0); HGB 12.2 gm/dL (11.4-16.0); MCH 29.6 pg (25.0-35.0); MCV 87.2 fL (80.0-100.0); Mean Platelet Volume 7.8; Platelet Count 201 k/uL (150-450); RBC 4.12 m/uL (3.80-5.40); RDW 14.3 % (11.5-15.5); WBC 7.5 k/uL (3.8-10.6)
[2022-03-01] MEDS ORDERED: NALOXONE 0.4 MG/ML 1 ML VIAL IV PRN (10:45)
[2022-03-01] MEDS: MORPHINE SULFATE 4 MG/ML SYRINGE IV PRN ×3 (13:39→21:12)
--- NOTE | 2022-03-01 14:32 | P.GSCN ---
History of Present Illness Consult date: 03/01/22 History of present illness: CHIEF COMPLAINT: GI bleed HISTORY OF PRESENT ILLNESS: This is a 67-year-old female presented to the hospital with complaints of GI bleed. She's had small amounts of bleeding from rectum over the last 7-10 days. This morning she had a bright red blood mixed brown stool. Patient does report of lower quadrant abdominal pain. She does have a known history of diverticulitis. Last colonoscopy was 6 months ago. She's had multiple bowel resections with history of bowel obstruction. Her last small bowel resection for internal hernia was October [address] Beatty. Patient reports no further bleeding since being in the ER. Patient seen and examined with Dr. beatty PAST MEDICAL HISTORY: See list. short gut syndrome PAST SURGICAL HISTORY: Appendectomy, multiple bowel resections, cholecystectomy, hernia repair, hysterectomy MEDICATIONS: See list. ALLERGIES: See list. SOCIAL HISTORY: No illicit drug use. REVIEW OF SYSTEMS: CONSTITUTIONAL: Denies fever or chills. HEENT: Denies blurred vision, vision changes, or eye pain. Denies hemoptysis CARDIOVASCULAR: Denies chest pain or pressure. RESPIRATORY: No shortness of breath. GASTROINTESTINAL: See HPI for pertinent findings HEMATOLOGIC: Denies bleeding disorders. GENITOURINARY: Denies any blood in urine or increased urinary frequency. SKIN: Denies pruitis. Denies rash. PHYSICAL EXAM: VITAL SIGNS: Reviewed GENERAL: Well-developed in no acute distress. HEENT: No sclera icterus. Extraocular movements grossly intact. Moist buccal mucosa. Head is atraumatic, normocephalic. No nasal drainage. ABDOMEN: Soft. Nondistended. Tenderwith palpation of the left side abdomen. Old midline abdominal scar noted NEUROLOGIC: Alert and oriented. Cranial nerves II through XII grossly intact. LABORATORY DATA: WBC is 7.5 HGB 13.5 down to 12.2 platelets 201 INR 1.3 Sodium 144 potassium 3.5 BUN 9 creatinine 0.62 Lactic acid 1.4 Magnesium 1.9 Total bilirubin 0.3 AST 27 ALT 30 alk phos 161 Stool for occult blood negative Urinalysis large blood and positive nitrites IMAGING: CTA of the abdomen delayed images show suspicious distal small bowel loop with more hyperdense material in the anterior midline of the mid pelvis presumed the source of active GI hemorrhage just proximal to the cecum, running between this site of surgical sutures and fixed dilated distal small bowel loop. ASSESSMENT: 1. Acute GI bleed 2. Per computed tomography scan findings active GI hemorrhage just proximal to the cecum running between the site of surgical sutures and fixed dilated distal small bowel PLAN: -Patient scheduled for a tagged RBC scan -Keep patient nothing by mouth -Continue to monitor hemoglobin -Continue to monitor for any signs or symptoms of bleeding -Continue IV fluids Thank you for this consultation Physician Tying In Machine Operator note has been reviewed by physician. Signing provider agrees with the documented findings, assessment, and plan of care. Past Medical History Past Medical History: Cancer, Heart Failure, COPD, CVA/TIA, Deep Vein Thrombosis (DVT), GERD/Reflux, Hypertension, Myocardial Infarction (CA), Neurologic Disorder, Osteoarthritis (OA), Seizure Disorder Additional Past Medical History / Comment(s): History of bilateral breast cancer, ovarian cancer, uterine cancer, history of CVA back in 1982, history of irregular heart rate possibly atrial fibrillation many years back, history of petit mal seizures, coronary artery disease, previous CA, history of DVT, history of acid reflux, history of COPD, hypertension, osteoarthritis, multiple bowel obstruction requiring previous abdominal surgeries and bowel resection. She also has renal cysts Last Myocardial Infarction Date:: 1997 History of Any Multi-Drug Resistant Organisms: MRSA Year Discovered:: 2003 MDRO Source:: lt hip Past Surgical History: Appendectomy, Back Surgery, Bowel Resection, Breast Surgery, Cholecystectomy, Hernia Repair, Hysterectomy, Orthopedic Surgery, Tonsillectomy Additional Past Surgical History / Comment(s): earnest mastectomy, oopherectomy back surgery x5 with last sx cage in back, bowel resection x5-6, earnest. carpal tunnel, lt rotator cuff repair Past Anesthesia/Blood Transfusion Reactions: Previous Problems w/ Anesthesia Additional Past Anesthesia/Blood Transfusion Reaction / Comm: experiences anxiety prior to surgery and agitiation. b/p elevates during surgery. woke up during surgery. difficult IV start Past Psychological History: Anxiety, Depression Smoking Status: Never smoker Past Alcohol Use History: Rare Past Drug Use History: None Reported - Past Family History Mother Family Medical History: Cancer Additional Family Medical History / Comment(s): lung Father Family Medical History: Cancer Additional Family Medical History / Comment(s): prostate Brother(s) Family Medical History: Cancer Additional Family Medical History / Comment(s): lung with metastasis Medications and Allergies Home Medications Medication Instructions Recorded Confirmed Type Metoprolol Succinate (ER) [Toprol 100 mg PO DAILY 08/01/18 03/01/22 History XL] Pantoprazole Sodium [Protonix] 40 mg PO BID 08/01/18 03/01/22 History diazePAM [Valium] 5 mg VAGINAL BID PRN 11/24/19 03/01/22 History Diphenoxylate HCl/Atropine 1 tab PO Q6H PRN 03/31/20 03/01/22 History [Lomotil 2.5-0.025 mg Tablet] Potassium Chloride ER [K-Dur 20] 40 meq PO DAILY 03/31/20 03/01/22 History lisinopriL [Prinivil] 10 mg PO DAILY 03/31/20 03/01/22 History Ondansetron Odt [Zofran Odt] 8 mg PO Q8H PRN 09/26/20 03/01/22 History Cyanocobalamin [Vitamin B-12 1,000 mcg SQ SA 03/01/22 03/01/22 History Injection] Dicyclomine [Bentyl] 10 mg PO TID PRN 03/01/22 03/01/22 History Furosemide [Lasix] 80 mg PO DAILY 03/01/22 03/01/22 History Melatonin [Melatonin ER] 10 mg PO HS 03/01/22 03/01/22 History SUMAtriptan succinate [Imitrex] 50 mg PO BID PRN 03/01/22 03/01/22 History Allergies Allergy/AdvReac Type Severity Reaction Status Date / Time doxycycline Allergy Unknown Verified 03/01/22 11:04 morphine Allergy Rash/Hives Verified 03/01/22 11:04 Penicillins Allergy Anaphylaxis Verified 03/01/22 11:04 phenobarbital Allergy Rash/Hives Verified 03/01/22 11:04 phenytoin [From Dilantin] Allergy Anaphylaxis Verified 03/01/22 11:04 carbamazepine [From Tegretol] AdvReac increases Verified 03/01/22 11:04 seizures Surgical - Exam Vital Signs Temp Pulse Resp BP Pulse Ox 98 F 115 H 18 135/89 96 03/01/22 06:44 03/01/22 06:44 03/01/22 06:44 03/01/22 06:44 03/01/22 06:44 Results - Labs 03/01/22 09:57 03/01/22 07:33 Abnormal Lab Results - Last 24 Hours (Table) 03/01/22 03/01/22 03/01/22 Range/Units 07:33 07:33 08:44 PT 13.5 H (9.0-12.0) sec INR 1.3 H (<1.2) Chloride 110 H (98-107) mmol/L Carbon Dioxide 20 L (22-30) mmol/L Alkaline Phosphatase 161 H (38-126) U/L Ur Specific [place] 1.049 H (1.001-1.035) Urine Protein 1+ H (Negative) Urine Blood Large H (Negative) Urine Nitrite Positive H (Negative) Ur Leukocyte Esterase Trace H (Negative) Urine RBC 12 H (0-5) /hpf Urine WBC 7 H (0-5) /hpf Urine Bacteria Occasional H (None) /hpf Urine Mucus Few H (None) /hpf Diabetes panel 03/01/22 Range/Units 07:33 Sodium 144 (137-145) mmol/L Potassium 3.5 (3.5-5.1) mmol/L Chloride 110 H (98-107) mmol/L Carbon Dioxide 20 L (22-30) mmol/L BUN 9 (7-17) mg/dL Creatinine 0.62 (0.52-1.04) mg/dL Glucose 92 (74-99) mg/dL Calcium 9.1 (8.4-10.2) mg/dL AST 27 (14-36) U/L ALT 30 (4-34) U/L Alkaline Phosphatase 161 H (38-126) U/L Total Protein 6.8 (6.3-8.2) g/dL Albumin 4.0 (3.5-5.0) g/dL Calcium panel 03/01/22 Range/Units 07:33 Calcium 9.1 (8.4-10.2) mg/dL Albumin 4.0 (3.5-5.0) g/dL Pituitary panel 03/01/22 Range/Units 07:33 Sodium 144 (137-145) mmol/L Potassium 3.5 (3.5-5.1) mmol/L Chloride 110 H (98-107) mmol/L Carbon Dioxide 20 L (22-30) mmol/L BUN 9 (7-17) mg/dL Creatinine 0.62 (0.52-1.04) mg/dL Glucose 92 (74-99) mg/dL Calcium 9.1 (8.4-10.2) mg/dL Adrenal panel 03/01/22 Range/Units 07:33 Sodium 144 (137-145) mmol/L Potassium 3.5 (3.5-5.1) mmol/L Chloride 110 H (98-107) mmol/L Carbon Dioxide 20 L (22-30) mmol/L BUN 9 (7-17) mg/dL Creatinine 0.62 (0.52-1.04) mg/dL Glucose 92 (74-99) mg/dL Calcium 9.1 (8.4-10.2) mg/dL Total Bilirubin 0.3 (0.2-1.3) mg/dL AST 27 (14-36) U/L ALT 30 (4-34) U/L Alkaline Phosphatase 161 H (38-126) U/L Total Protein 6.8 (6.3-8.2) g/dL Albumin 4.0 (3.5-5.0) g/dL
[2022-03-01] MEDS: ONDANSETRON 4 MG/2 ML VIAL IVP PRN (17:32)
--- NOTE | 2022-03-01 17:38 | NM ---
EXAMINATION TYPE: NM GI bleeding DATE OF EXAM: 03/01/2022 HISTORY: 2 views COMPARISON: NONE Following administration of 3 ml PYP 24.5 mCi Tc 99m Sodium Pertechnete. Immediate images post inject ion. FINDINGS: There is normal vascular tracer distribution. No evidence of any tracer extravasation to suggest any active GI bleeding. IMPRESSION: Normal exam. No evidence of active GI bleeding.
[2022-03-01 19:57] LABS: Basophils % (A) 1 %; Eosinophils # (A) 0.2 k/uL (0-0.7); Eosinophils % (A) 3 %; HCT 40.2 % (34.0-46.0); HGB 13.4 gm/dL (11.4-16.0); Lymphocytes # (A) 1.7 k/uL (1.0-4.8); Lymphocytes % (A) 25 %; MCH 29.1 pg (25.0-35.0); MCHC 33.4 g/dL (31.0-37.0); Mean Platelet Volume 7.7; Monocytes # (A) 0.5 k/uL (0-1.0); Monocytes % (A) 7 %; Neutrophils # (A) 4.3 k/uL (1.3-7.7); Neutrophils % (A) 62 %; Platelet Count 222 k/uL (150-450); RBC 4.62 m/uL (3.80-5.40); RDW 14.5 % (11.5-15.5); WBC 6.9 k/uL (3.8-10.6)
[2022-03-01] MEDS ORDERED: ACETAMINOPHEN TAB 325 MG TAB PO PRN (22:41)
[2022-03-01] MEDS ORDERED: SODIUM CHLORIDE 0.9% 1,000 ML IV SCH (22:45)
--- NOTE | 2022-03-02 00:09 | P.HPIM ---
History of Present Illness H&P Date: 03/01/22 Chief Complaint: Blood in the stool Patient is a 67-year-old female with a known history of hypertension, GERD, history of CVA, bilateral breast cancer status postsurgery, anxiety/depression and other multiple medical problems presents to ER with complaints of bleeding per rectum. Patient states that she has been having blood per rectum for the past 7 to 10 days. She noticed bright red blood mixed with brown stool this morning also. Was also complaining of lower abdominal pain. Patient states that she does have history of diverticulitis in the past. And also history of bowel obstruction and multiple bowel resections. Currently patient denies any active bleeding. Fecal occult blood in the ER is negative. Laboratory showed WBC 7.4 hemoglobin 13.5 and platelets 235 INR 1.3 Sodium 144 potassium 3.5 chloride 110 bicarb is 20, BUN 9 and creatinine 0.69 blood sugar is 92 magnesium 1.9 AST 27 ALT 30 alk phos 161 lipase 118 Urinalysis showed increased blood sugar to 1+ protein large blood nitrite positive and trace leukocyte esterase, mildly elevated RBCs and WBCs. CT of the abdomen and pelvis showed delayed images show suspicious distal small bowel loop with a more hyperdense material in the anterior midline of the mid pelvis presumed the source of active GI hemorrhage just proximal to the cecum., Running between this and site of surgical sutures and fixed dilated distal small bowel loop. Advised endovascular surgical referral. EKG showed sinus rhythm. Review of Systems Constitutional: Patient denies any fever or chills . no Generalized weakness. Abdomen: Patient denied any nausea or vomiting . Patient does complain of blood per rectum and lower abdominal pain. Cardiovascular: Patient denies any chest pain or short of breath no palpitations. Respiratory: patient denied any cough . no sputum production. No shortness of breath Neurologic: Patient denied any numbness or tingling headache. Musculoskeletal: Patient denies any complaints of joint swelling or deformity. Skin: Negative Psychiatric: Negative Endocrine: No heat or cold intolerance. No recent weight gain. Genitourinary: No dysuria or hematuria. All other 14 point ROS negative except the above Past Medical History Past Medical History: Cancer, Heart Failure, COPD, CVA/TIA, Deep Vein Thrombosis (DVT), GERD/Reflux, Hypertension, Myocardial Infarction ([place]), Neurologic Disorder, Osteoarthritis (OA), Seizure Disorder Additional Past Medical History / Comment(s): History of bilateral breast cancer, ovarian cancer, uterine cancer, history of CVA back in 1982, history of irregular heart rate possibly atrial fibrillation many years back, history of petit mal seizures, coronary artery disease, previous AL, history of DVT, history of acid reflux, history of COPD, hypertension, osteoarthritis, multiple bowel obstruction requiring previous abdominal surgeries and bowel resection. She also has renal cysts Last Myocardial Infarction Date:: 1997 History of Any Multi-Drug Resistant Organisms: MRSA Date of last positivie culture/infection: 2003 MDRO Source:: lt hip Past Surgical History: Appendectomy, Back Surgery, Bowel Resection, Breast Surgery, Cholecystectomy, Hernia Repair, Hysterectomy, Orthopedic Surgery, Tonsillectomy Additional Past Surgical History / Comment(s): earnest mastectomy, oopherectomy back surgery x5 with last sx cage in back, bowel resection x5-6, earnest. carpal tunnel, lt rotator cuff repair Past Anesthesia/Blood Transfusion Reactions: Previous Problems w/ Anesthesia Additional Past Anesthesia/Blood Transfusion Reaction / Comment(s): experiences anxiety prior to surgery and agitiation. b/p elevates during surgery. woke up during surgery. difficult IV start Past Psychological History: Anxiety, Depression Smoking Status: Never smoker Past Alcohol Use History: Rare Past Drug Use History: None Reported - Past Family History Mother Family Medical History: Cancer Additional Family Medical History / Comment(s): lung Father Family Medical History: Cancer Additional Family Medical History / Comment(s): prostate Brother(s) Family Medical History: Cancer Additional Family Medical History / Comment(s): lung with metastasis Medications and Allergies Home Medications Medication Instructions Recorded Confirmed Type Metoprolol Succinate (ER) [Toprol 100 mg PO DAILY 08/01/18 03/01/22 History XL] Pantoprazole Sodium [Protonix] 40 mg PO BID 08/01/18 03/01/22 History diazePAM [Valium] 5 mg VAGINAL BID PRN 11/24/19 03/01/22 History Diphenoxylate HCl/Atropine 1 tab PO Q6H PRN 03/31/20 03/01/22 History [Lomotil 2.5-0.025 mg Tablet] Potassium Chloride ER [K-Dur 20] 40 meq PO DAILY 03/31/20 03/01/22 History lisinopriL [Prinivil] 10 mg PO DAILY 03/31/20 03/01/22 History Ondansetron Odt [Zofran Odt] 8 mg PO Q8H PRN 09/26/20 03/01/22 History Cyanocobalamin [Vitamin B-12 1,000 mcg SQ SA 03/01/22 03/01/22 History Injection] Dicyclomine [Bentyl] 10 mg PO TID PRN 03/01/22 03/01/22 History Furosemide [Lasix] 80 mg PO DAILY 03/01/22 03/01/22 History Melatonin [Melatonin ER] 10 mg PO HS 03/01/22 03/01/22 History SUMAtriptan succinate [Imitrex] 50 mg PO BID PRN 03/01/22 03/01/22 History Allergies Allergy/AdvReac Type Severity Reaction Status Date / Time doxycycline Allergy Unknown Verified 03/01/22 11:04 morphine Allergy Rash/Hives Verified 03/01/22 11:04 Penicillins Allergy Anaphylaxis Verified 03/01/22 11:04 phenobarbital Allergy Rash/Hives Verified 03/01/22 11:04 phenytoin [From Dilantin] Allergy Anaphylaxis Verified 03/01/22 11:04 carbamazepine [From Tegretol] AdvReac increases Verified 03/01/22 11:04 seizures Physical Exam Vitals: Vital Signs Temp Pulse Resp BP BP Pulse Ox 03/01/22 20:47 97.6 F 16 144/81 95 03/01/22 19:35 100 16 135/87 96 03/01/22 17:22 97.6 F 94 20 150/76 97 03/01/22 11:00 96 18 136/93 97 03/01/22 08:04 98.3 F 90 18 113/76 96 03/01/22 06:44 98 F 115 H 18 135/89 96 Intake and Output 03/01/22 03/01/22 03/01/22 06:59 14:59 22:59 Other: Weight 58.967 kg PHYSICAL EXAMINATION: Patient is lying in the bed comfortably, no acute distress, awake alert and oriented.. HEENT: Normocephalic. Neck is supple. Pupils reactive. Nostrils clear. Oral cavity is moist. Neck reveals no JVD, carotid bruits, or thyromegaly. CHEST EXAMINATION: Trachea is central. Symmetrical expansion. Lung jeff clear to auscultation and percussion. CARDIAC: Normal S1, S2 with no gallops. No murmurs ABDOMEN: Soft. Bowel sounds present. Nontender. No organomegaly. No abdominal bruits. Extremities: reveal no edema. No clubbing or cyanosis Neurologically awake, alert, oriented x3 with well-coordinated movements. No focal deficits noted Skin: No rash or skin lesions. Psychiatric: Coperative. Nonsuicidal, Musculoskeletal: No joint swelling or deformity. Normal range of motion. Results CBC & Chem 7: 03/02/22 05:22 03/02/22 05:22 Labs: Abnormal Lab Results - Last 24 Hours (Table) 03/01/22 03/01/22 03/01/22 Range/Units 07:33 07:33 08:44 PT 13.5 H (9.0-12.0) sec INR 1.3 H (<1.2) Chloride 110 H (98-107) mmol/L Carbon Dioxide 20 L (22-30) mmol/L Alkaline Phosphatase 161 H (38-126) U/L Ur Specific [place] 1.049 H (1.001-1.035) Urine Protein 1+ H (Negative) Urine Blood Large H (Negative) Urine Nitrite Positive H (Negative) Ur Leukocyte Esterase Trace H (Negative) Urine RBC 12 H (0-5) /hpf Urine WBC 7 H (0-5) /hpf Urine Bacteria Occasional H (None) /hpf Urine Mucus Few H (None) /hpf Thrombosis Risk Factor Assmnt - DVT/VTE Prophylaxis DVT/VTE Prophylaxis: Mechanical Prophylaxis ordered Assessment and Plan Assessment: Acute GI bleed with bright red blood per rectum. Active GI hemorrhage proximal to the cecum at the site of surgical sutures as per CT and abdomen pelvis. Possible urinary tract infection Prior history of multiple bowel resections and small bowel resection for internal hernia in October 2019 History of CVA/TIA Hypertension Seizure disorder COPD History of DVT GERD History of breast cancer s/p surgery Anxiety/depression DVT prophylaxis with SCDs Plan: Patient will be continued on IV hydration with Ringer's lactate and follow-up CBC and BMP closely. Follow-up H&H. Currently no active bleeding. Continue wi th home blood pressure medications. Continue with ceftriaxone and urine culture will be sent.. Was given a dose of ceftriaxone in the ER. Patient was seen by general surgery and tagged RBC scan was ordered for any active bleed. Follow-up closely. Time with Patient: Greater than 30
[2022-03-02] MEDS: MORPHINE SULFATE 4 MG/ML SYRINGE IV PRN ×5 (00:23→22:25)
[2022-03-02] MEDS: MELATONIN 5 MG TABLET PO SCH ×2 (00:23→20:41)
[2022-03-02] MEDS: LACTATED RINGERS 1,000 ML IV SCH ×3 (00:24→22:28)
[2022-03-02 01:03] LABS: Basophils % (A) 0 %; Eosinophils # (A) 0.2 k/uL (0-0.7); Eosinophils % (A) 3 %; HCT 41.2 % (34.0-46.0); HGB 13.1 gm/dL (11.4-16.0); Hypochromasia Slight; Lymphocytes # (A) 1.5 k/uL (1.0-4.8); Lymphocytes % (A) 23 %; MCH 28.5 pg (25.0-35.0); MCHC 31.8 g/dL (31.0-37.0); MCV 89.8 fL (80.0-100.0); Mean Platelet Volume 8.1; Monocytes # (A) 0.4 k/uL (0-1.0); Monocytes % (A) 6 %; Neutrophils # (A) 4.3 k/uL (1.3-7.7); Neutrophils % (A) 66 %; Platelet Count 201 k/uL (150-450); RBC 4.59 m/uL (3.80-5.40); RDW 14.8 % (11.5-15.5); WBC 6.6 k/uL (3.8-10.6)
[2022-03-02] MEDS: ONDANSETRON 4 MG/2 ML VIAL IVP PRN ×2 (04:30→18:24)
[2022-03-02] MEDS ORDERED: SUMAtriptan succinate 50 MG TAB PO STA (07:31)
[2022-03-02 08:55] LABS: African American GFR (CKD) 112.8 (60.0-200.0); Anion Gap 14.5 mmol/L (10.00-18.00); BUN/Creat Ratio 18.43 Ratio (12.00-20.00); Blood Urea Nitrogen 9.6 mg/dL (9.0-27.0); Calcium 8.7 mg/dL (8.7-10.3); Carbon Dioxide 17.9 mmol/L (20.0-27.5); Non-African American GFR(CKD) 97.4 (60.0-200.0); Potassium 3.7 mmol/L (3.5-5.5)
[2022-03-02 10:36] LABS: Basophils # (A) 0.04 X 10*3/uL (0.00-0.10); Basophils % (A) 0.7 %; Eosinophils # (A) 0.18 X 10*3/uL (0.04-0.35); Eosinophils % (A) 2.9 %; HCT 36.6 % (37.2-46.3); HGB 12.1 g/dL (12.0-15.0); Immature Grans, Automated 0.5 %; Lymphocytes # (A) 1.71 X 10*3/uL (0.90-5.00); Lymphocytes % (A) 27.9 %; MCH 28.7 pg (27.0-32.0); MCHC 33.1 g/dL (32.0-37.0); MCV 86.7 fL (80.0-97.0); Mean Platelet Volume 10.4 fL (9.5-12.2); Monocytes # (A) 0.64 X 10*3/uL (0.20-1.00); Monocytes % (A) 10.4 %; NRBC Per 100 WBC 0 /100 WBCS (0.0-0.0); Neutrophils # (A) 3.54 X 10*3/uL (1.80-7.70); Neutrophils % (A) 57.6 %; Platelet Count 201 X 10*3/uL (140-440); RBC 4.22 X 10*6/uL (4.10-5.20); RBC Morphology NORMAL; RDW 15.3 % (11.5-14.5); WBC 6.14 X 10*3/uL (4.50-10.00)
[2022-03-02] MEDS: METOPROLOL SUCCINATE (ER) 100 MG TAB.ER.24H PO SCH (10:40)
[2022-03-02] MEDS: FUROSEMIDE 80 MG TAB PO SCH (10:41)
[2022-03-02] MEDS: lisinopriL 10 MG TAB PO SCH (10:43)
[2022-03-02] MEDS: ALPRAZolam 0.25 MG TAB PO PRN ×2 (10:50→20:41)
[2022-03-02] MEDS: HYDROcodone/APAP 5-325MG 1 EACH TAB PO PRN ×2 (10:50→17:00)
[2022-03-02] MEDS: PANTOPRAZOLE 40 MG/10 ML VIAL IV SCH (11:14)
--- NOTE | 2022-03-02 13:12 | P.PN ---
Subjective Progress Note Date: 03/02/22 CHIEF COMPLAINT: GI bleed HISTORY OF PRESENT ILLNESS: Patient reports no further bleeding per rectum. She does report a few pink spot she noted on her depends and felt likely was more due to skin irritation around her rectum. She reports that she is raw due to how many bowel movements she usually is. Since being in the hospital she's had no further bowel movements. She is complaining more of left lower quadrant pain she describes it as sharp burning and twisting sensation. Her abdominal bloating is better than yesterday. She has had some nausea no vomiting. Afebrile. Heart rate 98. WBC is 6.14 hemoglobin 13.1 down to 12.1 platelets 201 sodium 143 potassium 3.7 creatinine 0.5 glucose 62. Patient on antibiotics for possible UTI. Tagged RBC scan no evidence of active bleeding. Patient lost IV access. Midline has been ordered by medicine service. Patient is also complaining of anxiety and requesting Xanax. Patient seen and examined with Dr. beatty PHYSICAL EXAM: VITAL SIGNS: Reviewed. GENERAL: Well-developed in no acute distress. HEENT: No sclera icterus. Extraocular movements grossly intact. Moist buccal mucosa. Head is atraumatic, normocephalic. ABDOMEN: Soft. Nondistended. Tenderness to palpation left lower quadrant NEUROLOGIC: Alert and oriented. Cranial nerves II through XII grossly intact. ASSESSMENT: 1. No evidence of Acute GI bleed. Stool for occult blood negative. Tagged RBC scan negative for bleeding. 2. Left lower quadrant abdominal pain 3. History of diverticulosis 4. History of multiple bowel resections secondary to bowel obstruction. Her last small bowel resection for internal hernia was in October 2019 PLAN: -Check computed tomography scan abdomen and pelvis with oral and IV contrast for further evaluation of left lower quadrant abdominal pain -Start clear liquid diet -Continue IV fluids -Continue supportive care -[place] ordered for oral pain medication until IV access placed -Xanax PRN ordered for anxiety Physician Concrete Block Maker note has been reviewed by physician. Signing provider agrees with the documented findings, assessment, and plan of care. Objective - Vital Signs Vital signs: Vital Signs Temp 97.9 F 03/02/22 04:25 Pulse 98 03/02/22 04:25 Resp 15 03/02/22 04:25 BP 127/65 03/02/22 04:25 Pulse Ox 98 10/27/22 04:25 FiO2 Intake & Output 03/01/22 03/02/22 03/02/22 18:59 06:59 18:59 Output Total 0 Balance 0 Output: Stool 0 Other: # Voids 2 # Bowel Movements 0 - Labs CBC & Chem 7: 03/02/22 05:22 03/02/22 05:22 Labs: Abnormal Lab Results - Last 24 Hours (Table) 03/02/22 Range/Units 05:22 Chloride 111 H (96-109) mmol/L Carbon Dioxide 17.9 L (20.0-27.5) mmol/L Creatinine 0.5 L (0.6-1.5) mg/dL Glucose 62 L (70-110) mg/dL
[2022-03-02] MEDS: IOPAMIDOL CONTRAST (ORAL USE) VIAL PO PRN ×2 (14:26→15:29)
--- NOTE | 2022-03-02 21:16 | CT ---
EXAMINATION TYPE: CT abdomen pelvis with oral and IV contrast: 03/02/2022 4:30 PM HISTORY: LLQ pain CT DLP: 570.10mGycm Automated Exposure Control for Dose Reduction was Utilized. CONTRAST: CT scan of the abdomen and pelvis is performed with IV Contrast, patient injected with 100 mL of Isovue 300. COMPARISON: 03/01/2022 8:28 AM FINDINGS: LUNG BASES: No significant abnormality is appreciated. LIVER/GB: No significant abnormality is appreciated. PANCREAS: No significant abnormality is seen. SPLEEN: No significant abnormality is seen. ADRENALS: No significant abnormality is seen. KIDNEYS: No significant renal abnormality is seen. Collecting systems unremarkable. BOWEL: No definite acute bowel process. Sigmoid diverticulosis is noted, and there is indistinctness between the sigmoid and anterior dome of the bladder, but no definite CT evidence of diverticulitis. LYMPH NODES: No greater than 1cm abdominal or pelvic lymph nodes are appreciated. OSSEOUS STRUCTURES: No significant abnormality is seen. URINARY BLADDER: There is a tiny gas bubble at the midline nondependently on axial images 65 and 66 ( series 4). Clinical confirmation is requested, to confirm recent Lehman catheter or other bladder inst rumentation has occurred to account for this observation. IMPRESSION: 1. Gas bubble No definite acute process. 2. Urinary bladder observation.
--- NOTE | 2022-03-03 00:54 | P.PN ---
Subjective Progress Note Date: 03/02/22 Patient is a 67-year-old female with a known history of hypertension, GERD, history of CVA, bilateral breast cancer status postsurgery, anxiety/depression and other multiple medical problems presents to ER with complaints of bleeding per rectum. Patient states that she has been having blood per rectum for the past 7 to 10 days. She noticed bright red blood mixed with brown stool this morning also. Was also complaining of lower abdominal pain. Patient states that she does have history of diverticulitis in the past. And also history of bowel obstruction and multiple bowel resections. Currently patient denies any active bleeding. Fecal occult blood in the ER is negative. Laboratory showed WBC 7.4 hemoglobin 13.5 and platelets 235 INR 1.3 Sodium 144 potassium 3.5 chloride 110 bicarb is 20, BUN 9 and creatinine 0.69 blood sugar is 92 magnesium 1.9 AST 27 ALT 30 alk phos 161 lipase 118 Urinalysis showed increased blood sugar to 1+ protein large blood nitrite positive and trace leukocyte esterase, mildly elevated RBCs and WBCs. CT of the abdomen and pelvis showed delayed images show suspicious distal small bowel loop with a more hyperdense material in the anterior midline of the mid pelvis presumed the source of active GI hemorrhage just proximal to the cecum., Running between this and site of surgical sutures and fixed dilated distal small bowel loop. Advised endovascular surgical referral. EKG showed sinus rhythm. 03/02/2022 Patient is currently lying in bed. Awake alert and oriented x3. Still complains of lower abdominal pain. No further episodes of blood per rectum. M ainly left lower quadrant. Abdominal bloating is also improving. No nausea or vomiting. Tagged RBC scan showed no evidence of bleeding. Laboratory data showed WBC 6.1 hemoglobin 12.1 and platelets 201 sodium 143 potassium 3.7 chloride 101 bicarb is 17.9 anion gap 14 BUN 9.6 and creatinine 0.5 patient is being current on antibiotics of ceftriaxone. Blood cultures have been negative. Current medications reviewed. Objective - Vital Signs Vital signs: Vital Signs Temp 98.2 F 03/02/22 12:05 Pulse 89 03/02/22 12:05 Resp 20 03/02/22 12:05 BP 100/67 03/02/22 12:05 Pulse Ox 97 03/02/22 12:05 FiO2 Intake & Output 03/01/22 03/02/22 03/02/22 18:59 06:59 18:59 Output Total 0 0 Balance 0 0 Output: Stool 0 0 Other: # Voids 2 # Bowel Movements 0 - Exam PHYSICAL EXAMINATION: Patient is lying in the bed comfortably, no acute distress, awake alert and oriented.. HEENT: Normocephalic. Neck is supple. Pupils reactive. Nostrils clear. Oral cavity is moist. Neck reveals no JVD, carotid bruits, or thyromegaly. CHEST EXAMINATION: Trachea is central. Symmetrical expansion. Lung jeff clear to auscultation and percussion. CARDIAC: Normal S1, S2 with no gallops. No murmurs ABDOMEN: Soft. Bowel sounds present. Minimal left lower quadrant tenderness. No guarding or rigidity.. No organomegaly. No abdominal bruits. Extremities: reveal no edema. No clubbing or cyanosis Neurologically awake, alert, oriented x3 with well-coordinated movements. No focal deficits noted Skin: No rash or skin lesions. Psychiatric: Coperative. Nonsuicidal, Musculoskeletal: No joint swelling or deformity. Normal range of motion. - Labs CBC & Chem 7: 03/02/22 05:22 03/02/22 05:22 Labs: Abnormal Lab Results - Last 24 Hours (Table) 03/02/22 03/02/22 Range/Units 05:22 05:22 Hct 36.6 L (37.2-46.3) % RDW 15.3 H (11.5-14.5) % Chloride 111 H (96-109) mmol/L Carbon Dioxide 17.9 L (20.0-27.5) mmol/L Creatinine 0.5 L (0.6-1.5) mg/dL Glucose 62 L (70-110) mg/dL Microbiology - Last 24 Hours (Table) 03/01/22 10:30 Blood Culture - Preliminary Blood No Growth after 24 hours 03/01/22 10:15 Blood Culture - Preliminary Blood No Growth after 24 hours Assessment and Plan Assessment: Acute GI bleed with bright red blood per rectum.FOBT negative and tagged RBC scan negative. Active GI hemorrhage proximal to the cecum at the site of surgical sutures as per CT and abdomen pelvis. Left lower quadrant abdominal pain. Possible urinary tract infection Prior history of multiple bowel resections and small bowel resection for internal hernia in October 2019 History of CVA/TIA Hypertension Seizure disorder COPD History of DVT GERD History of breast cancer s/p surgery Anxiety/depression DVT prophylaxis with SCDs Plan: Patient will be continued on IV hydration with Ringer's lactate and follow-up CBC and BMP closely. Follow-up H&H. Currently no active bleeding. Continue with home blood pressure medications. Continue with ceftriaxone and urine culture will be sent.. Was given a dose of ceftriaxone in the ER. Patient was seen by general surgery and tagged RBC scan was ordered Which showed no evidence of acute GI bleed. CT of the abdominal and pelvis with contrast was ordered to further evaluate left lower quadrant abdominal pain. . Follow-up closely. Time with Patient: Greater than 30
[2022-03-03] MEDS: MORPHINE SULFATE 4 MG/ML SYRINGE IV PRN (06:30)
[2022-03-03 08:59] LABS: African American GFR (CKD) 114.5 (60.0-200.0); Anion Gap 9.1 mmol/L (10.00-18.00); BUN/Creat Ratio 8.6 Ratio (12.00-20.00); Blood Urea Nitrogen 4.3 mg/dL (9.0-27.0); Calcium 9.1 mg/dL (8.7-10.3); Carbon Dioxide 27.9 mmol/L (20.0-27.5); Non-African American GFR(CKD) 98.8 (60.0-200.0); Potassium 3.4 mmol/L (3.5-5.5)
[2022-03-03] MEDS: ALPRAZolam 0.25 MG TAB PO PRN (09:26)
[2022-03-03] MEDS: PANTOPRAZOLE 40 MG/10 ML VIAL IV SCH (09:26)
[2022-03-03 09:31] LABS: Basophils # (A) 0.04 X 10*3/uL (0.00-0.10); Basophils % (A) 0.8 %; Eosinophils # (A) 0.15 X 10*3/uL (0.04-0.35); Eosinophils % (A) 2.8 %; HCT 39.4 % (37.2-46.3); HGB 12.8 g/dL (12.0-15.0); Immature Grans, Automated 0.4 %; Lymphocytes # (A) 1.72 X 10*3/uL (0.90-5.00); Lymphocytes % (A) 32.6 %; MCH 28.4 pg (27.0-32.0); MCHC 32.5 g/dL (32.0-37.0); MCV 87.6 fL (80.0-97.0); Mean Platelet Volume 10.2 fL (9.5-12.2); Monocytes # (A) 0.63 X 10*3/uL (0.20-1.00); NRBC Per 100 WBC 0 /100 WBCS (0.0-0.0); Neutrophils # (A) 2.71 X 10*3/uL (1.80-7.70); Neutrophils % (A) 51.4 %; Platelet Count 267 X 10*3/uL (140-440); RDW 14.9 % (11.5-14.5); WBC 5.27 X 10*3/uL (4.50-10.00)
[2022-03-03] MEDS: METOPROLOL SUCCINATE (ER) 100 MG TAB.ER.24H PO SCH (09:49)
[2022-03-03] MEDS: lisinopriL 10 MG TAB PO SCH (09:50)
[2022-03-03] MEDS: FUROSEMIDE 80 MG TAB PO SCH (09:51)
[2022-03-03] MEDS ORDERED: POTASSIUM CHLORIDE ER 20 MEQ TAB.ER PO STA (10:22)
--- NOTE | 2022-03-03 10:27 | P.PN ---
Subjective Progress Note Date: 03/03/22 CHIEF COMPLAINT: Abdominal pain HISTORY OF PRESENT ILLNESS: Patient reports improvement in her abdominal pain. She's had no blood in her stools. She's had no bleeding per rectum. Computed tomography scan abdomen and pelvis sigmoid diverticulosis noted and there is indistinctness between the sigmoid and anterior dome of the bladder. But no definite CT evidence of diverticulitis. Afebrile. WBC is 5.27 Hgb 12.8 platelets 267 cm 137 potassium is 3.4 creatinine 0.5 Patient seen and examined with Dr. beatty PHYSICAL EXAM: VITAL SIGNS: Reviewed. GENERAL: Well-developed in no acute distress. HEENT: No sclera icterus. Extraocular movements grossly intact. Moist buccal mucosa. Head is atraumatic, normocephalic. ABDOMEN: Soft. Nondistended. NEUROLOGIC: Alert and oriented. Cranial nerves II through XII grossly intact. ASSESSMENT: 1. No evidence of Acute GI bleed. Stool for occult blood negative. Tagged RBC scan negative for bleeding. 2. Left lower quadrant abdominal pain likely due to chronic diverticulitis. CAT scan findings reviewed with Dr. beatty. 3. History of diverticulosis 4. History of multiple bowel resections secondary to bowel obstruction. Her last small bowel resection for internal hernia was in October 2019 PLAN: -Patient can be discharged from surgical standpoint -Start regular diet -Recommend that patient is discharged with antibiotics. Prescription for Cipro for 7 days given -Recommend outpatient colonoscopy Physician Honey Blender note has been reviewed by physician. Signing provider agrees with the documented findings, assessment, and plan of care. Objective - Vital Signs Vital signs: Vital Signs Temp 97.6 F 03/03/22 09:40 Pulse 86 03/03/22 09:40 Resp 17 03/03/22 09:40 BP 126/78 03/03/22 09:40 Pulse Ox 100 03/03/22 05:00 FiO2 Intake & Output 03/02/22 03/03/22 03/03/22 18:59 06:59 18:59 Intake Total 1310 Output Total 0 Balance 0 1310 Intake: Oral 1310 Output: Stool 0 Other: Voiding Method Toilet Toilet # Voids 2 2 - Labs CBC & Chem 7: 03/03/22 06:14 03/03/22 06:14 Labs: Abnormal Lab Results - Last 24 Hours (Table) 03/02/22 03/03/22 03/03/22 Range/Units 05:22 06:14 06:14 Hct 36.6 L (37.2-46.3) % RDW 15.3 H 14.9 H (11.5-14.5) % Potassium 3.4 L (3.5-5.5) mmol/L Carbon Dioxide 27.9 H (20.0-27.5) mmol/L Anion Gap 9.10 L (10.00-18.00) mmol/L BUN 4.3 L (9.0-27.0) mg/dL Creatinine 0.5 L (0.6-1.5) mg/dL BUN/Creatinine Ratio 8.60 L (12.00-20.00) Ratio Microbiology - Last 24 Hours (Table) 03/01/22 10:30 Blood Culture - Preliminary Blood No Growth after 24 hours 03/01/22 10:15 Blood Culture - Preliminary Blood No Growth after 24 hours
[2022-03-03 13:18] VITALS: BP 99/62; PULSE 65; RESP 16; TEMP 97.8
--- NOTE | 2022-03-04 10:05 | P.DS ---
Providers Date of admission: 03/01/22 10:45 Expected date of discharge: 03/03/22 Attending physician: David Marion Consults: 03/01/22 10:45 Consult Physician Routine Consulting Provider: Giovani Artis Consult Reason/Comments: concern for gi bleed Do you want consulting provider notified?: Already Contacted Primary care physician: Bia May Hospital Course: Final diagnosis Acute GI bleed with bright red blood per rectum.FOBT negative and tagged RBC scan negative. Active GI hemorrhage proximal to the cecum at the site of surgical sutures as per CT and abdomen pelvis. Left lower quadrant abdominal pain. Acute urinary tract infection, present on admission Prior history of multiple bowel resections and small bowel resection for internal hernia in October 2019 History of CVA/TIA Hypertension Seizure disorder COPD History of DVT GERD History of breast cancer s/p surgery Anxiety/depression DVT prophylaxis with SCDs Discharge disposition Patient is being discharged in a stable condition with guarded prognosis to home . Patient will follow-up with Dr. May in the outpatient setting upon discharge. Patient is to continue with antibiotics per surgery and follow up with DR. Artis in the office this week as scheduled. Total time taken is greater than 35 minutes. Hospital course This is a 67-year-old female who was recently admitted with abdominal pain and possible GI bleed. GI bleed ruled out by surgery although would like further testing done outpatient. Pain management and will be continued on antibiotics per surgery for one week. Patient reports to tolerating diet and would like to go home. Currently no reports of chest pain, shortness of breath, or palpitations. Patient is afebrile. No reports of nausea or vomiting and patient is tolerating diet. Patient also encouraged to follow up with urology as she has not done so recently. Patient will be discharged home today. Guarded prognosis Physical exam: Gen: This is a 67 year old female who is awake and alert and oriented x3. well developed, well nourished. HEENT: Head is atraumatic, normocephalic. Pupils equal, round. Sclerae is anicteric. NECK: Supple. No JVD. No lymphadenopathy. No thyromegaly. LUNGS: Clear to auscultation. No wheezes or rhonchi. No intercostal retractions. HEART: Regular rate and rhythm. No murmur. ABDOMEN: Soft. tender Bowel sounds are present. No masses. EXTREMITIES: No pedal edema. No calf tenderness. NEUROLOGICAL: Patient is awake, alert and oriented x3. Cranial nerves 2 through 12 are grossly intact. Please refer to medication reconciliation sheet for a list of medications. The impression and plan of care has been dictated by Amara Curiel, Nurse Practitioner as directed. Dr. Ramila MD I have performed a history and examination and MDM of this patient, discussed the same with the dictator, and agree with the dictator's assessment and plan as written ,documented as a scribe. Based on total visit time, I have performed more than 50% of the visit. Patient Condition at Discharge: Stable Plan - Discharge Summary New Discharge Prescriptions: New Ciprofloxacin HCl [Cipro] 500 mg PO Q12HR 7 Days #14 tab Ibuprofen [Motrin] 600 mg PO Q8HR PRN #30 tab PRN Reason: Pain HYDROcodone/APAP 5-325MG [[place] 5-325] 1 tab PO Q6HR PRN #9 tab PRN Reason: Pain Acetaminophen Tab [Tylenol] 650 mg PO Q6HR PRN tab PRN Reason: Fever And/ Or Pain Continue Pantoprazole Sodium [Protonix] 40 mg PO BID Metoprolol Succinate (ER) [Toprol XL] 100 mg PO DAILY diazePAM [Valium] 5 mg VAGINAL BID PRN PRN Reason: Muscle Spasms lisinopriL [Prinivil] 10 mg PO DAILY Potassium Chloride ER [K-Dur 20] 40 meq PO DAILY Diphenoxylate HCl/Atropine [Lomotil 2.5-0.025 mg Tablet] 1 tab PO Q6H PRN PRN Reason: Diarrhea Dicyclomine [Bentyl] 10 mg PO TID PRN PRN Reason: IBS Furosemide [Lasix] 80 mg PO DAILY SUMAtriptan succinate [Imitrex] 50 mg PO BID PRN PRN Reason: Migraine Headache Ondansetron Odt [Zofran ODT] 8 mg PO Q8H PRN PRN Reason: Nausea Cyanocobalamin [Vitamin B-12 Injection] 1,000 mcg SQ SA Melatonin [Melatonin ER] 10 mg PO HS Discharge Medication List Metoprolol Succinate (ER) [Toprol XL] 100 mg PO DAILY 08/01/18 [History] Pantoprazole Sodium [Protonix] 40 mg PO BID 08/01/18 [History] diazePAM [Valium] 5 mg VAGINAL BID PRN 11/24/19 [History] Diphenoxylate HCl/Atropine [Lomotil 2.5-0.025 mg Tablet] 1 tab PO Q6H PRN 03/31/20 [History] Potassium Chloride ER [K-Dur 20] 40 meq PO DAILY 03/31/20 [History] lisinopriL [Prinivil] 10 mg PO DAILY 03/31/20 [History] Ondansetron Odt [Zofran ODT] 8 mg PO Q8H PRN 09/26/20 [History] Cyanocobalamin [Vitamin B-12 Injection] 1,000 mcg SQ SA 03/01/22 [History] Dicyclomine [Bentyl] 10 mg PO TID PRN 03/01/22 [History] Furosemide [Lasix] 80 mg PO DAILY 03/01/22 [History] Melatonin [Melatonin ER] 10 mg PO HS 03/01/22 [History] SUMAtriptan succinate [Imitrex] 50 mg PO BID PRN 03/01/22 [History] Acetaminophen Tab [Tylenol] 650 mg PO Q6HR PRN tab 03/03/22 [Rx] Ciprofloxacin HCl [Cipro] 500 mg PO Q12HR 7 Days #14 tab 03/03/22 [Rx] HYDROcodone/APAP 5-325MG [[place] 5-325] 1 tab PO Q6HR PRN #9 tab 03/03/22 [Rx] Ibuprofen [Motrin] 600 mg PO Q8HR PRN #30 tab 03/03/22 [Rx] Follow up Appointment(s)/Referral(s): Bia May MD [Primary Care Provider] - 1-2 days (CALL TO SCHEDULE APPOINTMENT.) Giovani Artis MD [STAFF PHYSICIAN] - 03/07/22 3:45 pm Patient Instructions/Handouts: Ciprofloxacin (By mouth), Hydrocodone/Acetaminophen (By mouth), Ibuprofen (By mouth), Diverticulitis (DC), Acute Abdominal Pain (DC) Activity/Diet/Wound Care/Special Instructions: Activity Limited until follow-up Follow up with surgery as discussed this week Continue taking medications as prescribed Continue with antibiotics as prescribed Follow-up primary care provider on discharge continue current diet Follow-up urology outpatient as discussed Discharge Disposition: HOME SELF-CARE
== END 2022-03-03 15:58 | disposition home or self-care (01) ==
LOC: EC 06:40 → INTOOBSV 10:45 → 5NMEDONC 10:45
PROVIDERS: ADMIT Internal Medicine; ATTEND Internal Medicine
DX: R10.32 Left lower quadrant pain (principal); N39.0 Urinary tract infection, site not specified; N20.0 Calculus of kidney; J44.9 Chronic obstructive pulmonary disease, unspecified; I25.2 Old myocardial infarction; I11.0 Hypertensive heart disease with heart failure; I50.9 Heart failure, unspecified; G40.909 Epilepsy, unspecified, not intractable, without status epilepticus; F41.9 Anxiety disorder, unspecified; F32.A Depression, unspecified; I25.10 Atherosclerotic heart disease of native coronary artery without angina pectoris; K21.9 Gastro-esophageal reflux disease without esophagitis; J98.11 Atelectasis; K91.2 Postsurgical malabsorption, not elsewhere classified; K57.30 Diverticulosis of large intestine without perforation or abscess without bleeding; Z85.42 Personal history of malignant neoplasm of other parts of uterus; Z86.73 Personal history of transient ischemic attack (TIA), and cerebral infarction without residual deficits; Z86.718 Personal history of other venous thrombosis and embolism; Z88.1 Allergy status to other antibiotic agents; Z88.5 Allergy status to narcotic agent; Z88.0 Allergy status to penicillin; Z88.8 Allergy status to other drugs, medicaments and biological substances; Z87.442 Personal history of urinary calculi; Z79.82 Long term (current) use of aspirin; Z79.899 Other long term (current) drug therapy; Z85.43 Personal history of malignant neoplasm of ovary; Z85.3 Personal history of malignant neoplasm of breast; Z90.49 Acquired absence of other specified parts of digestive tract; Z90.710 Acquired absence of both cervix and uterus; Z80.1 Family history of malignant neoplasm of trachea, bronchus and lung; Z80.42 Family history of malignant neoplasm of prostate
CPT/HCPCS: 96376 ×4; 96361 ×2; 96365 ×2; 96366 ×2; 96375; 99285; 36415; 93005; 97162; 97165; 36410; 76937; 86900; 86901; 86902; 80053; 80048 ×2; 82150; 83605; 83690; 83735; 85025 ×3; 85027; 85610; 85730; 86850; 86870; 86880; 82272; 81001; 87040; 74177; 74174; 78278; G0378 ×3; A9560; J2270 ×4; J2405 ×2; J0696 ×3; C9113 ×3; Q9967 ×2

== ENCOUNTER → 2022-03-07 | Outpatient (CLI) | payer MEDICARE, OTHER | END | disposition home or self-care (01) | LOC: LABWHC1 08:18 | PROVIDERS: ATTEND Urology | DX: Z53.9 Procedure and treatment not carried out, unspecified reason (principal) ==

== ENCOUNTER → 2022-04-07 | Outpatient (CLI) | payer MEDICARE, OTHER ==
[2022-04-07 14:33] LABS: Basophils # (A) 0.05 X 10*3/uL (0.00-0.10); Basophils % (A) 0.6 %; Eosinophils # (A) 0.18 X 10*3/uL (0.04-0.35); Eosinophils % (A) 2.1 %; HCT 44.1 % (37.2-46.3); HGB 14.3 g/dL (12.0-15.0); Immature Grans, Automated 0.7 %; Lymphocytes # (A) 1.02 X 10*3/uL (0.90-5.00); Lymphocytes % (A) 12.1 %; MCH 28.9 pg (27.0-32.0); MCHC 32.4 g/dL (32.0-37.0); MCV 89.3 fL (80.0-97.0); Mean Platelet Volume 10.5 fL (9.5-12.2); Monocytes # (A) 0.53 X 10*3/uL (0.20-1.00); Monocytes % (A) 6.3 %; NRBC Per 100 WBC 0 /100 WBCS (0.0-0.0); Neutrophils # (A) 6.57 X 10*3/uL (1.80-7.70); Neutrophils % (A) 78.2 %; Platelet Count 233 X 10*3/uL (140-440); RBC 4.94 X 10*6/uL (4.10-5.20); RDW 13.2 % (11.5-14.5); WBC 8.41 X 10*3/uL (4.50-10.00)
[2022-04-07 14:54] LABS: Anion Gap 13.5 mmol/L (10.00-18.00); Carbon Dioxide 20.5 mmol/L (20.0-27.5); Potassium 3.6 mmol/L (3.5-5.5)
== END | disposition home or self-care (01) ==
LOC: LABPAT 07:52
PROVIDERS: ATTEND Surgery
DX: Z01.812 Encounter for preprocedural laboratory examination (principal)
CPT/HCPCS: 36415; 80051; 85025

== ENCOUNTER 2022-04-17 07:40 | Inpatient (IN) | payer MEDICARE, OTHER ==
[2022-04-12 11:44] VITALS: BMI 25.4
[~2022-04-17 07:40] MED LIST: ACETAMINOPHEN TAB 500 MG TAB PO PRN; DEXAMETHASONE SOD PHOSPHATE 4 MG/ML 1 ML VIAL IV ONE; HEPARIN SODIUM,PORCINE/PF 5,000 UNIT/0.5 ML SYRINGE SQ PRN; MIDAZOLAM 2 MG/2 ML VIAL IV PRN; ONDANSETRON 4 MG/2 ML VIAL IVP ONE
[2022-04-17] MEDS: LACTATED RINGERS 1,000 ML IV SCH (09:29)
--- NOTE | 2022-04-17 09:51 | P.GSHP ---
History of Present Illness H&P Date: 04/17/22 Chief Complaint: Adhesions Is a 67-year-old female who has complaints of abdominal pain. Patient's multiple laparotomies with small bowel resection. Patient resents today for release of adhesions. Patient recent CAT scan which was suspicious for a partial obstruction of the distal small bowel. Past Medical History Past Medical History: Coronary Artery Disease (CAD), Cancer, Heart Failure, COPD, CVA/TIA, Deep Vein Thrombosis (DVT), Eye Disorder, GERD/Reflux, Hyperlipidemia, Hypertension, Myocardial Infarction ([place]), Osteoarthritis (OA), Seizure Disorder Additional Past Medical History / Comment(s): Hx bilateral breast cancer 1982, ovarian cancer 1976, uterine cancer 1978. Hx CVA 1982. Hx irregular heart rate. Hx petit mal seizures, last seizure 6 yrs ago. Hx DVT in left leg in 1979. Hx multiple bowel obstructions requiring previous abdominal surgeries and bowel resection. Renal cysts. Pernicious Anemia. Varicose veins left leg. Blind in right eye. Prone to falls, unsteady at times, uses cane/rolling walker PRN. Last Myocardial Infarction Date:: 1997 History of Any Multi-Drug Resistant Organisms: MRSA Date of last positivie culture/infection: 2003 MDRO Source:: lt hip Past Surgical History: Appendectomy, Back Surgery, Bowel Resection, Breast Surgery, Cholecystectomy, Heart Catheterization, Hernia Repair, Hysterectomy, Orthopedic Surgery, Tonsillectomy Additional Past Surgical History / Comment(s): Bilateral mastectomy, oopherectomy, back surgery X5 with last surgery cage placed in back, bowel resection X5, bilateral carpal tunnel, left rotator cuff repair. Past Anesthesia/Blood Transfusion Reactions: Previous Problems w/ Anesthesia, Postoperative Nausea & Vomiting (PONV) Additional Past Anesthesia/Blood Transfusion Reaction / Comment(s): Experiences anxiety and agitation prior to surgery, BP elevates during surgery, has woke up during surgery. "Very difficult IV start." Past Psychological History: Anxiety, Depression Smoking Status: Never smoker Past Alcohol Use History: Rare Past Drug Use History: None Reported Additional Drug Use History / Comment(s): Hx CBD, none since 07/30/18. - Past Family History Mother Family Medical History: Cancer Additional Family Medical History / Comment(s): Lung cancer. Father Family Medical History: Cancer Additional Family Medical History / Comment(s): "Cancer all over body." Brother(s) Family Medical History: Cancer Additional Family Medical History / Comment(s): Lung cancer with metastasis. Medications and Allergies Home Medications Medication Instructions Recorded Confirmed Type Metoprolol Succinate (ER) [Toprol 100 mg PO QAM 08/01/18 04/17/22 History XL] Pantoprazole Sodium [Protonix] 80 mg PO QAM 08/01/18 04/17/22 History diazePAM [Valium] 5 mg VAGINAL BID PRN 11/24/19 04/17/22 History Diphenoxylate HCl/Atropine 1 tab PO Q6H PRN 03/31/20 04/17/22 History [Lomotil 2.5-0.025 mg Tablet] Potassium Chloride ER [K-Dur 20] 40 meq PO DAILY 03/31/20 04/17/22 History Ondansetron Odt [Zofran ODT] 8 mg PO Q8H PRN 09/26/20 04/17/22 History Cyanocobalamin [Vitamin B-12 1,000 mcg SQ SA 03/01/22 04/17/22 History Injection] Dicyclomine [Bentyl] 10 mg PO TID PRN 03/01/22 04/17/22 History Furosemide [Lasix] 80 mg PO DAILY 03/01/22 04/17/22 History SUMAtriptan succinate [Imitrex] 50 mg PO BID PRN 03/01/22 04/17/22 History HYDROcodone/APAP 5-325MG [[place] 1 tab PO Q6HR PRN #9 tab 03/03/22 04/17/22 Rx 5-325] Aspirin 325 mg PO DAILY 04/12/22 04/17/22 History Cyclobenzaprine [Flexeril] 10 mg PO TID PRN 04/12/22 04/17/22 History Ventolin (Unknown Dose) 1 - 2 puff INHALATION DIRECTED 04/12/22 04/17/22 History PRN Ibuprofen [Advil] 200 mg PO Q6HR PRN 04/17/22 04/17/22 History lisinopriL [Zestril] 10 mg PO DAILY 04/17/22 04/17/22 History Allergies Allergy/AdvReac Type Severity Reaction Status Date / Time morphine Allergy Rash/Hives Verified 04/17/22 08:57 Penicillins Allergy Anaphylaxis Verified 04/17/22 08:57 phenobarbital Allergy Rash/Hives Verified 04/17/22 08:57 phenytoin [From Dilantin] Allergy Anaphylaxis Verified 04/17/22 08:57 carbamazepine [From Tegretol] AdvReac increases Verified 04/17/22 08:57 seizures Surgical - Exam Vital Signs Temp Pulse Resp BP Pulse Ox 97.9 F 98 16 132/81 96 04/17/22 08:50 04/17/22 08:50 04/17/22 08:50 04/17/22 08:50 04/17/22 08:50 - General well developed, well nourished, no distress - Eyes PERRL - ENT normal pinna - Neck no masses - Respiratory normal expansion - Cardiovascular Rhythm: regular - Abdomen Multiple healed laparotomy scars. Mild tenderness in the right left lower quadrants. There is no rebound or guarding Abdomen: soft Assessment and Plan Assessment: Abdominal pain Adhesions We'll perform exploratory laparotomy with lysis of adhesions.
[2022-04-17] MEDS ORDERED: ALVIMOPAN 12 MG CAPSULE PO ONE (09:54)
[2022-04-17] MEDS ORDERED: DEXAMETHASONE SOD PHOSPHATE 4 MG/ML 1 ML VIAL IVP ONE (09:54)
[2022-04-17] MEDS ORDERED: ONDANSETRON 4 MG/2 ML VIAL IVP ONE (09:56)
[2022-04-17] MEDS ORDERED: GLYCOPYRROLATE 0.2 MG/ML 2 ML VIAL ONE (10:21)
[2022-04-17] MEDS ORDERED: PROPOFOL 10 MG/ML 20 ML VIAL IV ONE (10:21)
[2022-04-17] MEDS ORDERED: LIDOCAINE 2% INJ 20 MG/ML (2 ML VIAL) ONE (10:21)
[2022-04-17] MEDS ORDERED: ROCURONIUM 10 MG/ML (5 ML VIAL) IV ONE (10:21)
[2022-04-17] MEDS ORDERED: MIDAZOLAM 2 MG/2 ML VIAL ONE (10:21)
[2022-04-17] MEDS ORDERED: KETAMINE 10 MG/ML 20 ML VIAL ONE (10:21)
[2022-04-17] MEDS ORDERED: [UNRECOGNIZED DRUG - OTHER] IV ONE ×2 (10:21)
[2022-04-17] MEDS ORDERED: SUCCINYLCHOLINE CHLORIDE 200 MG/10 ML VIAL IV ONE (10:21)
[2022-04-17] MEDS ORDERED: fentaNYL (PF) 50 MCG/ML 2 ML AMP ONE (10:21)
[2022-04-17] MEDS ORDERED: NEOSTIGMINE 1 MG/ML 10 ML VIAL ONE (10:21)
[2022-04-17] MEDS ORDERED: SODIUM CHLORIDE 0.9% IV ONE ×2 (10:21)
[2022-04-17] MEDS ORDERED: CLINDAMYCIN IV ONE ×2 (10:21)
[2022-04-17] MEDS ORDERED: LACTATED RINGERS 1,000 ML IV ONE ×2 (11:13→11:31)
[2022-04-17] MEDS ORDERED: METOCLOPRAMIDE 5 MG/ML 2 ML VIAL IVP PRN (11:31)
[2022-04-17] MEDS ORDERED: ACETAMINOPHEN TAB 325 MG TAB PO PRN (11:31)
[2022-04-17] MEDS ORDERED: NALOXONE 0.4 MG/ML 1 ML VIAL IV PRN (11:31)
--- NOTE | 2022-04-17 11:31 | P.OP ---
Date of Procedure: 04/17/22 Preoperative Diagnosis: Adhesions Postoperative Diagnosis: Severe intra-abdominal adhesions Frozen abdomen Incisional hernia Procedure(s) Performed: Exploratory laparotomy Lysis of adhesions Repair of incisional hernia Anesthesia: HADLEY Surgeon: Giovani Artis Estimated Blood Loss (ml): 5 Pathology: none sent Condition: stable Disposition: PACU Description of Procedure: The patient's placed on the operative table in the supine position. She received general endotracheal tube anesthesia. Her abdomen was prepped and draped usual sterile fashion. The skin was incised in the midline. And then using left cautery abdominal wall was divided. The peritoneum was opened with sharp dissection. There were extensive dense adhesions throughout the peritoneal cavity. Approximately 30 minute operative time used to lyse adhesions. The abdomen was frozen. At this point decided to stop the adhesion lysis due to potential injury of the small bowel. The adhesions were very significant. At this point the adhesions to the fascia were lysed. And then the fascia was closed with looped #1 PDS suture. There was an incisional hernia was repaired during fascial closure. The skin was closed devon. Patient top she will was sent to recovery room in stable condition.
[2022-04-17] MEDS: fentaNYL (PF) 50 MCG/ML 2 ML AMP IV PRN ×2 (11:36→12:11)
[2022-04-17] MEDS ORDERED: HYDROmorphone 0.5 MG/0.5 ML SYRINGE IVP ONE ×2 (13:05→14:11)
[2022-04-17] MEDS: HYDROmorphone 1 MG/ML 1 ML SYRINGE IVP PRN ×2 (16:54→21:03)
[2022-04-17] MEDS: KETOROLAC 15 MG/ML 1 ML VIAL IVP SCH (19:02)
[2022-04-17] MEDS: ALBUTEROL NEBULIZED 2.5 MG/3 ML INHALATION SCH ×2 (19:02→19:09)
[2022-04-17] MEDS: DOCUSATE 100 MG CAP PO SCH (21:01)
[2022-04-17] MEDS: diazePAM 5 MG TAB PO PRN (22:40)
[2022-04-18] MEDS: KETOROLAC 15 MG/ML 1 ML VIAL IVP SCH ×4 (00:17→18:06)
[2022-04-18] MEDS: HYDROmorphone 1 MG/ML 1 ML SYRINGE IVP PRN ×3 (01:02→08:36)
--- NOTE | 2022-04-18 03:12 | CONS ---
CONSULTATION REASON FOR CONSULTATION: Advice regarding COPD and other multiple medical issues requested by Surgery. HISTORY OF PRESENT ILLNESS: This is a 67-year-old woman with a past medical history of COPD, CAD, DVT, and other multiple issues, being followed by Dr. May in the outpatient setting, underwent exploratory laparotomy, lysis of adhesions for severe intraabdominal adhesions and frozen abdomen, incisional hernia repair by Dr. Artis. There is no history of any fever, rigors, chills, chest pain, palpitations, shortness of breath at this time. PAST MEDICAL HISTORY: Reviewed and includes COPD, CVA, TIA. The rest of the history and chart is also reviewed. Whole chart is reviewed. HOME MEDICATIONS: Reviewed and include ibuprofen, dose and rest of the medications reviewed. ALLERGIES: Reviewed and include morphine. FAMILY HISTORY: History of lung cancer. SOCIAL HISTORY: No history of smoking. No history of alcohol intake. History of CBD. REVIEW OF SYSTEMS: Fourteen-point review is negative except as mentioned earlier. PHYSICAL EXAMINATION: VITAL SIGNS: Pulse is 84, blood pressure ntd, respirations 16. HEENT: Conjunctivae normal. NECK: No jugular venous distention. CARDIOVASCULAR: n RESPIRATORY: in the bases. Scattered rhonchi and crackles. ABDOMEN: Soft, status post surgery. EXTREMITIES: No edema. No swelling. NERVOUS SYSTEM: no focal deficit. SKIN: No ulcer JOINTS: No active deforming arthropathy. LABORATORY DATA: Labs are not available. ASSESSMENT: 1. Status post exploratory laparotomy and lysis of adhesions and repair of incisional hernia for frozen abdomen. 2. Chronic obstructive pulmonary disease. 3. History of coronary artery disease. 4. History of deep venous thrombosis. 5. Hypertension. 6. Hyperlipidemia. 7. Multiple medical issues. RECOMMENDATIONS AND DISCUSSION: This is a 67-year-old woman, who presented with multiple complex medical issues. At this time, I recommend to continue the current medications and symptomatic treatment. Otherwise, resume the home medications. DVT prophylaxis. Incentive spirometry. We will follow the patient closely with you. The patient may be asked to follow up with Dr. May closely after discharge. ELIE / NEVIN: [id number] / MTDD
[2022-04-18] MEDS: ONDANSETRON 4 MG/2 ML VIAL IVP PRN ×3 (04:19→22:19)
[2022-04-18] MEDS: LACTATED RINGERS 1,000 ML IV SCH ×2 (05:30→22:40)
[2022-04-18] MEDS: SUMAtriptan succinate 50 MG TAB PO PRN ×2 (05:39→15:42)
[2022-04-18] MEDS ORDERED: ALVIMOPAN 12 MG CAPSULE PO PRN (07:00)
[2022-04-18] MEDS: ALBUTEROL NEBULIZED 2.5 MG/3 ML INHALATION SCH ×4 (07:38→20:43)
[2022-04-18] MEDS: ENOXAPARIN 40 MG/0.4 ML SYRINGE SQ SCH (08:25)
[2022-04-18] MEDS: FUROSEMIDE 80 MG TAB PO SCH (08:25)
[2022-04-18] MEDS: lisinopriL 10 MG TAB PO SCH (08:25)
[2022-04-18] MEDS: PANTOPRAZOLE 40 MG/10 ML VIAL IV SCH (08:26)
[2022-04-18] MEDS: METOPROLOL SUCCINATE (ER) 100 MG TAB.ER.24H PO SCH (08:27)
[2022-04-18] MEDS: DOCUSATE 100 MG CAP PO SCH ×2 (08:27→22:05)
[2022-04-18] MEDS: diazePAM 5 MG TAB PO PRN ×2 (08:35→22:16)
[2022-04-18 09:09] LABS: Basophils # (A) 0.01 X 10*3/uL (0.00-0.10); Basophils % (A) 0.1 %; Eosinophils # (A) 0 X 10*3/uL (0.04-0.35); Eosinophils % (A) 0 %; HCT 35.2 % (37.2-46.3); HGB 11.7 g/dL (12.0-15.0); Immature Grans, Automated 0.4 %; MCH 29.5 pg (27.0-32.0); MCHC 33.2 g/dL (32.0-37.0); MCV 88.9 fL (80.0-97.0); Mean Platelet Volume 9.5 fL (9.5-12.2); Monocytes # (A) 0.05 X 10*3/uL (0.20-1.00); Monocytes % (A) 0.7 %; NRBC Per 100 WBC 0 /100 WBCS (0.0-0.0); Neutrophils # (A) 7.07 X 10*3/uL (1.80-7.70); Neutrophils % (A) 94.8 %; Platelet Count 196 X 10*3/uL (140-440); RBC 3.96 X 10*6/uL (4.10-5.20); RDW 13.5 % (11.5-14.5); WBC 7.46 X 10*3/uL (4.50-10.00)
[2022-04-18 09:24] LABS: African American GFR (CKD) 108.3 (60.0-200.0); Albumin 3.6 g/dL (3.8-4.9); Albumin/Globulin Ratio 1.83 (1.60-3.17); Anion Gap 12.3 mmol/L (10.00-18.00); BUN/Creat Ratio 18.78 Ratio (12.00-20.00); Blood Urea Nitrogen 11.1 mg/dL (9.0-27.0); Calcium 8.7 mg/dL (8.7-10.3); Carbon Dioxide 19.6 mmol/L (20.0-27.5); Non-African American GFR(CKD) 93.5 (60.0-200.0); Potassium 3.6 mmol/L (3.5-5.5); Total Bilirubin 0.3 mg/dL (0.30-1.20); Total Protein 5.5 g/dL (6.2-8.2)
[2022-04-18] MEDS: PSYLLIUM HUSK 100% 6 GM PACKET PO SCH (11:24)
[2022-04-18] MEDS: HYDROmorphone 0.5 MG/0.5 ML SYRINGE IVP PRN ×4 (11:25→22:12)
--- NOTE | 2022-04-18 14:16 | PN ---
PROGRESS NOTE DATE OF SERVICE: 04/18/2022 SUBJECTIVE: This 67-year-old woman, who was admitted after exploratory laparotomy, lysis of adhesions, is complaining of severe pain. The patient also concerned about UTI also. No chest pain. No palpitations. No fever. OBJECTIVE: VITAL SIGNS: Pulse is 101, blood pressure 111/74, respirations 16. CHEST: Clear to auscultation. CARDIOVASCULAR: S1, S2. ABDOMEN: Soft, status post surgery. LABORATORY DATA: Reviewed. ASSESSMENT: 1. Status post exploratory laparotomy, lysis of adhesions, repair of incisional hernia for frozen abdomen. 2. Chronic obstructive pulmonary disease. 3. History of coronary artery disease. 4. History of deep venous thrombosis. 5. Rule out urinary tract infection. 6. Hypertension. 7. Hyperlipidemia. 8. Multiple medical issues. RECOMMENDATIONS: I recommend to continue current medications and symptomatic treatment. Otherwise, pain management. DVT prophylaxis. I would also recommend UA with micro and urine culture. Closely follow with Surgery. Further recommendations to follow. MMODL / IJN: [id number] /
--- NOTE | 2022-04-18 14:46 | CDI ---
Documentation Clarification Form Date: 04/18/2022 02:30:26 PM From: Mariely Elena RN CCDS Admit Date: 04/17/2022 07:57:00 AM Patient Name: Cynthia Duke Visit Number: [id number] Discharge Date: ATTENTION: The Clinical Documentation Specialists (CDI) and [facility] Coding Staff appreciate your assistance in clarifying documentation. Please respond to the clarification below the line at the bottom and electronically sign. The CDI & [facility] Coding staff will review the response and follow-up if needed. Please note: Queries are made part of the Legal Health Record. If you have any questions, please contact the author of this message via ITS. Dr. Ciera Solitario Your patient has the documented diagnosis of unspecified CHF 04/17, H&P. Additional information regarding the type, acuity of CHF is requested. History/Risk Factors: 67-year-old female presents to [facility] for elective abdominal surgery. Medical History: CAD, Heart Failure and [place]. H&P, 04/17. Clinical Indicators: VS/Pulse OX: 04/17 B/P 132/81; HR 98; Temp 97.9 Tympanic F; RR 16; SpO2 96% room air Echocardiogram Results: 10/08/2019 EF 60-65% Trace tricuspid regurgitation; Trace mitral regurgitation; There is no pulmonic regurgitation present Treatment: 04/18 Lasix 80mg PO Daily; 04/17 Zestril 10mg PO Daily; 04/18 Toprol Xl 100mg PO QAM. In your professional opinion, can you please clarify the [acuity and type] of CHF if known? [ ] Chronic Diastolic Heart Failure (preserved EF) [ ] Other, please specify [ ] Unable to determine (Template Last Revised: June 2020) Chronic Diastolic Heart Failure (preserved EF) MTDD
[2022-04-18 15:00] LABS: Appearance,Urine Clear (Clear); Bilirubin,Urine Negative (Negative); Blood,Urine Small (Negative); Color,Urine Light Yellow; Glucose,Urine (UA) Negative (Negative); Hyaline Casts,Urine 12 /lpf (0-2); Ketones,Urine Negative (Negative); Leukocyte Esterase,Urine Negative (Negative); Mucus,Urine Rare /hpf; Nitrite,Urine Negative (Negative); Protein,Urine Negative (Negative); RBC,Urine 9 /hpf (0-5); Specific Gravity,Urine 1.008 (1.001-1.035); Urobilinogen,Urine <2.0 mg/dL (<2.0); WBC,Urine 1 /hpf (0-5)
--- NOTE | 2022-04-18 15:05 | P.PN ---
Subjective Progress Note Date: 04/18/22 CHIEF COMPLAINT: Abdominal pain HISTORY OF PRESENT ILLNESS: Patient is postop day #1 status post exploratory laparotomy, lysis of adhesions and repair of incisional hernia. Patient is complaining of her pain not being controlled. She denies any nausea or vomiting. No flatus. Afebrile. Mildly tachycardic. WBC is 7.46H 11.7 platelets 196 sodium was 137 potassium 3.6 creatinine 0.6 Patient seen and examined with Dr. Artis PHYSICAL EXAM: VITAL SIGNS: Reviewed. GENERAL: Well-developed in no acute distress. HEENT: No sclera icterus. Extraocular movements grossly intact. Moist buccal mucosa. Head is atraumatic, normocephalic. ABDOMEN: Soft. Nondistended. Diffuse tenderness NEUROLOGIC: Alert and oriented. Cranial nerves II through XII grossly intact. ASSESSMENT: 1. Severe intra-abdominal adhesions, frozen abdomen and incisional hernia status post exploratory laparotomy, lysis of adhesions and repair of incisional hernia PLAN: -Breakthrough IV Dilaudid added as needed for pain control -Add Metamucil -Continue clear liquid diets -Continue IV fluids -Encouraged patient to ambulate -Lovenox for DVT prophylaxis Physician Physical Therapy Aides Teacher note has been reviewed by physician. Signing provider agrees with the documented findings, assessment, and plan of care. Objective - Vital Signs Vital signs: Vital Signs Temp 98.7 F 04/18/22 13:49 Pulse 119 H 04/18/22 13:49 Resp 18 04/18/22 13:49 BP 101/70 04/18/22 13:49 Pulse Ox 97 04/18/22 13:49 FiO2 Intake & Output 04/17/22 04/18/22 04/18/22 18:59 06:59 18:59 Intake Total 1700 300 Output Total 50 275 Balance 1650 25 Weight 58.2 kg Intake: IV 1700 Oral 300 Output: Urine 25 275 Estimated Blood Loss 25 Other: Voiding Method Indwelling Catheter Indwelling Catheter # Voids 1 - Labs CBC & Chem 7: 04/18/22 05:56 04/18/22 05:56 Labs: Abnormal Lab Results - Last 24 Hours (Table) 04/18/22 04/18/22 Range/Units 05:56 05:56 RBC 3.96 L (4.10-5.20) X 10*6/uL Hgb 11.7 L (12.0-15.0) g/dL Hct 35.2 L (37.2-46.3) % Lymphocytes # 0.30 L (0.90-5.00) X 10*3/uL Monocytes # 0.05 L (0.20-1.00) X 10*3/uL Eosinophils # 0 L (0.04-0.35) X 10*3/uL Carbon Dioxide 19.6 L (20.0-27.5) mmol/L Alkaline Phosphatase 129 H (41-126) U/L Total Protein 5.5 L (6.2-8.2) g/dL Albumin 3.6 L (3.8-4.9) g/dL
[2022-04-19] MEDS: KETOROLAC 15 MG/ML 1 ML VIAL IVP SCH ×3 (02:38→13:48)
[2022-04-19] MEDS: HYDROcodone/APAP 5-325MG 1 EACH TAB PO PRN ×4 (02:41→23:32)
[2022-04-19] MEDS: HYDROmorphone 0.5 MG/0.5 ML SYRINGE IVP PRN ×4 (02:44→23:32)
[2022-04-19] MEDS: ALBUTEROL NEBULIZED 2.5 MG/3 ML INHALATION SCH ×4 (07:40→21:26)
[2022-04-19] MEDS: ONDANSETRON 4 MG/2 ML VIAL IVP PRN ×2 (08:28→20:59)
[2022-04-19] MEDS: PSYLLIUM HUSK 100% 6 GM PACKET PO SCH (08:29)
[2022-04-19] MEDS: PANTOPRAZOLE 40 MG/10 ML VIAL IV SCH (08:29)
[2022-04-19] MEDS: ENOXAPARIN 40 MG/0.4 ML SYRINGE SQ SCH (08:30)
[2022-04-19] MEDS: FUROSEMIDE 80 MG TAB PO SCH (08:30)
[2022-04-19] MEDS: DOCUSATE 100 MG CAP PO SCH ×2 (08:30→20:59)
[2022-04-19] MEDS: lisinopriL 10 MG TAB PO SCH ×2 (08:30→08:37)
[2022-04-19] MEDS: METOPROLOL SUCCINATE (ER) 100 MG TAB.ER.24H PO SCH (08:32)
[2022-04-19] MEDS: diazePAM 5 MG TAB PO PRN ×2 (08:41→23:32)
[2022-04-19 09:40] LABS: African American GFR (CKD) 107.8 (60.0-200.0); Anion Gap 12.7 mmol/L (10.00-18.00); BUN/Creat Ratio 12.17 Ratio (12.00-20.00); Blood Urea Nitrogen 7.3 mg/dL (9.0-27.0); Calcium 8.3 mg/dL (8.7-10.3); Carbon Dioxide 23.3 mmol/L (20.0-27.5); Potassium 3.4 mmol/L (3.5-5.5)
[2022-04-19 09:49] LABS: Basophils # (A) 0.02 X 10*3/uL (0.00-0.10); Basophils % (A) 0.3 %; Eosinophils # (A) 0.26 X 10*3/uL (0.04-0.35); Eosinophils % (A) 3.8 %; HCT 34.7 % (37.2-46.3); HGB 11.6 g/dL (12.0-15.0); Immature Grans, Automated 0.4 %; Lymphocytes # (A) 0.65 X 10*3/uL (0.90-5.00); Lymphocytes % (A) 9.5 %; MCH 29.4 pg (27.0-32.0); MCHC 33.4 g/dL (32.0-37.0); MCV 88.1 fL (80.0-97.0); Mean Platelet Volume 9.7 fL (9.5-12.2); Monocytes # (A) 0.94 X 10*3/uL (0.20-1.00); Monocytes % (A) 13.8 %; NRBC Per 100 WBC 0 /100 WBCS (0.0-0.0); Neutrophils # (A) 4.93 X 10*3/uL (1.80-7.70); Neutrophils % (A) 72.2 %; Platelet Count 173 X 10*3/uL (140-440); RBC 3.94 X 10*6/uL (4.10-5.20); RDW 13.5 % (11.5-14.5); WBC 6.83 X 10*3/uL (4.50-10.00)
[2022-04-19] MEDS ORDERED: POTASSIUM CHLORIDE ER 20 MEQ TAB.ER PO STA (16:05)
--- NOTE | 2022-04-19 16:07 | P.PN ---
Subjective Progress Note Date: 04/19/22 CHIEF COMPLAINT: Abdominal pain HISTORY OF PRESENT ILLNESS: Patient is postop day #2 status post exploratory laparotomy, lysis of adhesions and repair of incisional hernia. Patient reports that her pain is better controlled today. She is having bowel movements and flatus. Currently on clear liquid diet this morning. Advance to full liquid diet for lunch. She denies any nausea or vomiting. Afebrile. WBC 6.83H 11.6 platelets 173 sodium is 135 potassium is 3.4 creatinine 0.6 Patient seen and examined with Dr. Artis PHYSICAL EXAM: VITAL SIGNS: Reviewed. GENERAL: Well-developed in no acute distress. HEENT: No sclera icterus. Extraocular movements grossly intact. Moist buccal mucosa. Head is atraumatic, normocephalic. ABDOMEN: Soft. Nondistended. Incision site clean dry and intact NEUROLOGIC: Alert and oriented. Cranial nerves II through XII grossly intact. ASSESSMENT: 1. Severe intra-abdominal adhesions, frozen abdomen and incisional hernia status post exploratory laparotomy, lysis of adhesions and repair of incisional hernia 2. Hypokalemia PLAN: -Advance diet to regular -Adjusting oral pain medication to [place] 5 mg 1 tablet every 4 hours as needed for pain -Continue Metamucil -Replace potassium -Anticipate discharge tomorrow -Change incisional dressing to Optifoam silver -Encouraged patient to ambulate -Lovenox for DVT prophylaxis Physician Reading Specialist note has been reviewed by physician. Signing provider agrees with the documented findings, assessment, and plan of care. Objective - Vital Signs Vital signs: Vital Signs Temp 98.3 F 04/19/22 11:17 Pulse 100 04/19/22 11:17 Resp 18 04/19/22 11:17 BP 102/70 04/19/22 11:17 Pulse Ox 92 L 04/19/22 11:17 FiO2 Intake & Output 04/18/22 04/19/22 04/19/22 18:59 06:59 18:59 Other: Voiding Method Indwelling Catheter Indwelling Catheter # Voids 1,500 2 5 # Bowel Movements 6 - Labs CBC & Chem 7: 04/19/22 06:14 04/19/22 06:14 Labs: Abnormal Lab Results - Last 24 Hours (Table) 04/19/22 04/19/22 Range/Units 06:14 06:14 RBC 3.94 L (4.10-5.20) X 10*6/uL Hgb 11.6 L (12.0-15.0) g/dL Hct 34.7 L (37.2-46.3) % Lymphocytes # 0.65 L (0.90-5.00) X 10*3/uL Potassium 3.4 L (3.5-5.5) mmol/L BUN 7.3 L (9.0-27.0) mg/dL Calcium 8.3 L (8.7-10.3) mg/dL Microbiology - Last 24 Hours (Table) 04/18/22 13:54 Urine Culture - Preliminary Urine,Catheterized
[2022-04-19] MEDS: SUMAtriptan succinate 50 MG TAB PO PRN (17:38)
[2022-04-20] MEDS: HYDROmorphone 0.5 MG/0.5 ML SYRINGE IVP PRN ×7 (02:30→22:27)
--- NOTE | 2022-04-20 04:33 | PN ---
PROGRESS NOTE DATE OF SERVICE: 04/19/2022 SUBJECTIVE: This 67-year-old woman was admitted after abdominal surgery. She still complains of abdominal pain. Final urine cultures are pending at this time. No chest pain. No palpitation. OBJECTIVE: VITAL SIGNS: Pulse is 101, blood pressure 102/70, respirations 18. CHEST: Clear to auscultation. CARDIOVASCULAR: S1, S2. ABDOMEN: Soft, status post surgery. LABS: Reviewed. ASSESSMENT: 1. Status post exploratory laparotomy, lysis of adhesions, repair of incisional hernia for frozen abdomen. 2. Chronic obstructive pulmonary disease. 3. Rule out urinary tract infection. 4. Coronary artery disease. 5. History of deep venous thrombosis. 6. Multiple medical issues. RECOMMENDATIONS AND DISCUSSION: Recommend to continue current management, symptomatic treatment, and pain management. DVT prophylaxis. Await urine culture. Further recommendations to follow. ELIE / NEVIN: [id number] /
[2022-04-20] MEDS: FUROSEMIDE 80 MG TAB PO SCH (07:29)
[2022-04-20] MEDS: PANTOPRAZOLE 40 MG/10 ML VIAL IV SCH (07:29)
[2022-04-20] MEDS: HYDROcodone/APAP 5-325MG 1 EACH TAB PO PRN ×4 (07:30→22:26)
[2022-04-20] MEDS: METOPROLOL SUCCINATE (ER) 100 MG TAB.ER.24H PO SCH (07:31)
[2022-04-20] MEDS: lisinopriL 10 MG TAB PO SCH (07:31)
[2022-04-20] MEDS: ENOXAPARIN 40 MG/0.4 ML SYRINGE SQ SCH (07:32)
[2022-04-20] MEDS: PSYLLIUM HUSK 100% 6 GM PACKET PO SCH (07:32)
[2022-04-20] MEDS: DOCUSATE 100 MG CAP PO SCH ×2 (07:32→20:10)
[2022-04-20] MEDS: diazePAM 5 MG TAB PO PRN ×2 (07:40→22:26)
[2022-04-20] MEDS: LACTATED RINGERS 1,000 ML IV SCH (07:48)
[2022-04-20 08:59] LABS: African American GFR (CKD) >90 (>60 ml/min/1.73 sqM); Anion Gap 11 mmol/L; Blood Urea Nitrogen 7 mg/dL (7-17); Calcium 8.5 mg/dL (8.4-10.2); Carbon Dioxide 23 mmol/L (22-30); Chloride 106 mmol/L (98-107); Glucose 109 mg/dL (74-99); Non-African American GFR(CKD) >90 (>60 ml/min/1.73 sqM); Potassium 3.2 mmol/L (3.5-5.1); Sodium 140 mmol/L (137-145)
[2022-04-20] MEDS: ALBUTEROL NEBULIZED 2.5 MG/3 ML INHALATION SCH ×4 (09:36→21:13)
[2022-04-20] MEDS ORDERED: POTASSIUM CHLORIDE ER 20 MEQ TAB.ER PO STA (10:16)
--- NOTE | 2022-04-20 16:22 | P.PN ---
Subjective Progress Note Date: 04/20/22 CHIEF COMPLAINT: Abdominal pain HISTORY OF PRESENT ILLNESS: Patient is postop day #3 status post exploratory laparotomy, lysis of adhesions and repair of incisional hernia. Patient reports a little increase in pain this morning. She thinks that she overdid it with walking. Does not feel quite ready for discharge. She is having bowel movements. Tolerating regular diet. Afebrile. Sodium is 140 potassium 3.2 creatinine 0.5 Patient seen and examined with Dr. Artis PHYSICAL EXAM: VITAL SIGNS: Reviewed. GENERAL: Well-developed in no acute distress. HEENT: No sclera icterus. Extraocular movements grossly intact. Moist buccal mucosa. Head is atraumatic, normocephalic. ABDOMEN: Soft. Nondistended. Incision site clean dry and intact NEUROLOGIC: Alert and oriented. Cranial nerves II through XII grossly intact. ASSESSMENT: 1. Severe intra-abdominal adhesions, frozen abdomen and incisional hernia status post exploratory laparotomy, lysis of adhesions and repair of incisional hernia 2. Hypokalemia PLAN: -Continue to replace potassium -Check magnesium level -Continue regular diet -Continue pain medication -Anticipate discharge tomorrow -Encouraged patient to ambulate -Lovenox for DVT prophylaxis Physician Pig Machine Operator Helper note has been reviewed by physician. Signing provider agrees with the documented findings, assessment, and plan of care. Objective - Vital Signs Vital signs: Vital Signs Temp 98.3 F 04/20/22 11:12 Pulse 103 H 04/20/22 11:12 Resp 18 04/20/22 11:12 BP 123/81 04/20/22 11:12 Pulse Ox 97 04/20/22 11:12 FiO2 Intake & Output 04/19/22 04/20/22 04/20/22 18:59 06:59 18:59 Other: Voiding Method Indwelling Catheter Toilet Toilet # Voids 5 2 # Bowel Movements 6 - Labs CBC & Chem 7: 04/19/22 06:14 04/20/22 08:26 Labs: Abnormal Lab Results - Last 24 Hours (Table) 04/20/22 Range/Units 08:26 Potassium 3.2 L (3.5-5.1) mmol/L Creatinine 0.50 L (0.52-1.04) mg/dL Glucose 109 H (74-99) mg/dL Microbiology - Last 24 Hours (Table) 04/18/22 13:54 Urine Culture - Final Urine,Catheterized
[2022-04-21] MEDS: HYDROmorphone 0.5 MG/0.5 ML SYRINGE IVP PRN ×3 (01:31→07:56)
[2022-04-21] MEDS: ONDANSETRON 4 MG/2 ML VIAL IVP PRN (01:37)
[2022-04-21] MEDS: HYDROcodone/APAP 5-325MG 1 EACH TAB PO PRN ×3 (04:41→13:42)
[2022-04-21] MEDS: LACTATED RINGERS 1,000 ML IV SCH (05:34)
--- NOTE | 2022-04-21 07:02 | PN ---
PROGRESS NOTE DATE OF SERVICE: 04/20/2022 SUBJECTIVE: This 67-year-old woman was admitted after exploratory laparotomy is improving significantly. No chest pain. No palpitations. No fever. Urine cultures negative so far. OBJECTIVE: VITAL SIGNS: Pulse is 103, blood pressure 123/84, respirations 18. CHEST: Clear to auscultation. CARDIOVASCULAR: S1, S2. ABDOMEN: Soft, status post surgery. NERVOUS SYSTEM: Nonfocal. LABORATORY DATA: Reviewed. ASSESSMENT: 1. Status post exploratory laparotomy, lysis of adhesions, repair of incisional hernia for frozen abdomen. 2. Chronic obstructive pulmonary disease. 3. Urine culture negative so far. No evidence of urinary tract infection. 4. Coronary artery disease. 5. History of deep venous thrombosis. 6. Multiple medical issues. DISCUSSION AND RECOMMENDATIONS: I recommend to continue current medications and symptomatic treatment. Otherwise, pain management. Resume the home medications. Supplement potassium. The rest of the medications per Surgery. Further recommendations to follow. MMODL / IJN: [id number] /
[2022-04-21] MEDS: DOCUSATE 100 MG CAP PO SCH ×2 (07:55→08:02)
[2022-04-21] MEDS: lisinopriL 10 MG TAB PO SCH (07:55)
[2022-04-21] MEDS: ENOXAPARIN 40 MG/0.4 ML SYRINGE SQ SCH (07:56)
[2022-04-21] MEDS: PSYLLIUM HUSK 100% 6 GM PACKET PO SCH (07:56)
[2022-04-21] MEDS: FUROSEMIDE 80 MG TAB PO SCH (07:56)
[2022-04-21] MEDS: PANTOPRAZOLE 40 MG/10 ML VIAL IV SCH (07:56)
[2022-04-21] MEDS: METOPROLOL SUCCINATE (ER) 100 MG TAB.ER.24H PO SCH (07:56)
[2022-04-21 08:19] LABS: African American GFR (CKD) >90 (>60 ml/min/1.73 sqM); Anion Gap 8 mmol/L; Blood Urea Nitrogen 11 mg/dL (7-17); Calcium 8.8 mg/dL (8.4-10.2); Carbon Dioxide 24 mmol/L (22-30); Chloride 107 mmol/L (98-107); Glucose 105 mg/dL (74-99); Magnesium 1.5 mg/dL (1.6-2.3); Non-African American GFR(CKD) >90 (>60 ml/min/1.73 sqM); Potassium 3.4 mmol/L (3.5-5.1); Sodium 139 mmol/L (137-145)
[2022-04-21 08:20] LABS: HCT 38.7 % (34.0-46.0); HGB 13.1 gm/dL (11.4-16.0); MCH 30.2 pg (25.0-35.0); MCHC 33.9 g/dL (31.0-37.0); MCV 89.3 fL (80.0-100.0); Mean Platelet Volume 7.8; Platelet Count 271 k/uL (150-450); RBC 4.33 m/uL (3.80-5.40); RDW 13.5 % (11.5-15.5); WBC 6.4 k/uL (3.8-10.6)
[2022-04-21] MEDS: ALBUTEROL NEBULIZED 2.5 MG/3 ML INHALATION SCH ×2 (09:16→12:53)
[2022-04-21] MEDS: diazePAM 5 MG TAB PO PRN (09:50)
[2022-04-21 11:52] VITALS: BP 110/81; PULSE 112; RESP 18; TEMP 97.8
--- NOTE | 2022-04-21 13:17 | P.DS ---
Providers Date of admission: 04/17/22 07:57 Expected date of discharge: 04/21/22 Attending physician: Giovani Artis Consults: 04/17/22 11:33 Consult Physician Routine Consulting Provider: Sonia Mcgrath Consult Reason/Comments: med manage Do you want consulting provider notified?: Yes Primary care physician: Bia Lalo Hospital Course: Discharge diagnosis 1. Severe intra-abdominal adhesions, frozen abdomen and incisional hernia status post exploratory laparotomy, lysis of adhesions and repair of incisional hernia 2. Hypokalemia 3. Hypomagnesemia Hospital course This is a 67-year-old female with severe intra-abdominal adhesions, frozen abdomen and incisional hernia status post exploratory laparotomy, lysis of adhesions and repair of incisional hernia. Patient reports that her pain is controlled. She is tolerating diet. She is having bowel movements and flatus. Afebrile. Her potassium and magnesium are being replaced prior to discharge. Patient is stable for discharge. Please refer to chart for any further details. Physician Scrum Project Manager note has been reviewed by physician. Signing provider agrees with the documented findings, assessment, and plan of care. Patient Condition at Discharge: Stable Plan - Discharge Summary Discharge Rx Participant: Yes New Discharge Prescriptions: New Psyllium Husk 100% [Metamucil Packet] 6 gm PO DAILY #30 packet Acetaminophen Tab [Tylenol Tab] 650 mg PO Q4H PRN #30 tablet PRN Reason: Pain oxyCODONE HCL [OxyIR] 5 mg PO Q6H PRN 7 Days #30 tab PRN Reason: Pain Continue Pantoprazole Sodium [Protonix] 80 mg PO QAM Metoprolol Succinate (ER) [Toprol XL] 100 mg PO QAM diazePAM [Valium] 5 mg VAGINAL BID PRN PRN Reason: Muscle Spasms Potassium Chloride ER [K-Dur 20] 40 meq PO DAILY Diphenoxylate HCl/Atropine [Lomotil 2.5-0.025 mg Tablet] 1 tab PO Q6H PRN PRN Reason: Diarrhea Dicyclomine [Bentyl] 10 mg PO TID PRN PRN Reason: IBS Furosemide [Lasix] 80 mg PO DAILY SUMAtriptan succinate [Imitrex] 50 mg PO BID PRN PRN Reason: Migraine Headache Ventolin (Unknown Dose) 1 - 2 puff INHALATION DIRECTED PRN PRN Reason: Shortness Of Breath Ibuprofen [Advil] 200 mg PO Q6HR PRN PRN Reason: Pain Cyanocobalamin [Vitamin B-12 Injection] 1,000 mcg SQ SA Aspirin 325 mg PO DAILY Cyclobenzaprine [Flexeril] 10 mg PO TID PRN PRN Reason: Muscle Spasm lisinopriL [Zestril] 10 mg PO DAILY Discontinued HYDROcodone/APAP 5-325MG [[place] 5-325] 1 tab PO Q6HR PRN #9 tab PRN Reason: Pain Ondansetron Odt [Zofran ODT] 8 mg PO Q8H PRN PRN Reason: Nausea Discharge Medication List Metoprolol Succinate (ER) [Toprol XL] 100 mg PO QAM 08/01/18 [History] Pantoprazole Sodium [Protonix] 80 mg PO QAM 08/01/18 [History] diazePAM [Valium] 5 mg VAGINAL BID PRN 11/24/19 [History] Diphenoxylate HCl/Atropine [Lomotil 2.5-0.025 mg Tablet] 1 tab PO Q6H PRN 03/31/20 [History] Potassium Chloride ER [K-Dur 20] 40 meq PO DAILY 03/31/20 [History] Cyanocobalamin [Vitamin B-12 Injection] 1,000 mcg SQ SA 03/01/22 [History] Dicyclomine [Bentyl] 10 mg PO TID PRN 03/01/22 [History] Furosemide [Lasix] 80 mg PO DAILY 03/01/22 [History] SUMAtriptan succinate [Imitrex] 50 mg PO BID PRN 03/01/22 [History] Aspirin 325 mg PO DAILY 04/12/22 [History] Cyclobenzaprine [Flexeril] 10 mg PO TID PRN 04/12/22 [History] Ventolin (Unknown Dose) 1 - 2 puff INHALATION DIRECTED PRN 04/12/22 [History] Ibuprofen [Advil] 200 mg PO Q6HR PRN 04/17/22 [History] lisinopriL [Zestril] 10 mg PO DAILY 04/17/22 [History] Acetaminophen Tab [Tylenol Tab] 650 mg PO Q4H PRN #30 tablet 04/21/22 [Rx] Psyllium Husk 100% [Metamucil Packet] 6 gm PO DAILY #30 packet 04/21/22 [Rx] oxyCODONE HCL [OxyIR] 5 mg PO Q6H PRN 7 Days #30 tab 04/21/22 [Rx] Follow up Appointment(s)/Referral(s): [facility] Visiting Nurse, [NON-STAFF] - 1 Week Giovani Artis MD [STAFF PHYSICIAN] - 1 Week Ambulatory/Diagnostic Orders: Complete Blood Count w/diff [LAB.AMB] Location: None Selected Patient Instructions/Handouts: Acetaminophen (By mouth), Oxycodone/Acetaminophen (By mouth), Complete Blood Count (GEN), Lysis of Abdominal Adhesions (DC) Activity/Diet/Wound Care/Special Instructions: No driving while taking oxy No lifting over 10 pounds shower daily. No soaking or tub baths for 2 weeks Very light activity until you are reevaluated at your follow up appointment with your surgeon Discharge Disposition: HOME WITH HOME HEALTH SERVICES
[2022-04-21] MEDS ORDERED: MAGNESIUM OXIDE 400 MG TAB PO STA (13:57)
[2022-04-21] MEDS ORDERED: MAGNESIUM SULFATE-D5W PMX 1 GM in DEXTROSE/WATER 1 100ML.BAG IVPB SCH (14:00)
--- NOTE | 2022-04-22 04:02 | PN ---
PROGRESS NOTE DATE OF SERVICE: 04/21/2022 SUBJECTIVE: This is a 67-year-old woman who was admitted after exploratory laparotomy, lysis of adhesions, is improving significantly. No chest pain. No palpitations. No fever. OBJECTIVE: VITAL SIGNS: Pulse is 112, blood pressure 110/81, respirations 18. HEENT: Conjunctivae normal. NECK: No JVD. CARDIOVASCULAR: S1, S2. RESPIRATIONS: A few scattered rhonchi. ABDOMEN: Soft, status post surgery. NERVOUS SYSTEM: No focal deficits. LABS: Reviewed. ASSESSMENT: 1. Status post exploratory laparotomy, lysis of adhesions, repair of incisional hernia for frozen abdomen. 2. Chronic obstructive pulmonary disease. 3. Urine culture negative. No evidence of urinary tract infection. 4. Coronary artery disease. 5. History of deep venous thrombosis. 6. Multiple medical issues. RECOMMENDATIONS AND DISCUSSION: Recommend to continue current management and symptomatic treatment. Otherwise, resume the home medications. Closely follow with Primary Physician as well as Surgery. Further recommendations per Surgery. Repeat lytes with the primary physician. MMODL / IJN: [id number] /
== END 2022-04-21 14:02 | disposition home health service (06) | DRG 336 ==
LOC: 2ORMAIN 07:57 → 5NMEDONC 15:27
PROVIDERS: ADMIT Surgery; ATTEND Surgery
PROC: 0DNW0ZZ Release Peritoneum, Open Approach (ICD-10-PCS; principal; 2022-04-17 10:05)
PROC: 0WQF0ZZ Repair Abdominal Wall, Open Approach (ICD-10-PCS; principal; 2022-04-17 10:05)
DX: K43.2 Incisional hernia without obstruction or gangrene (principal); I50.32 Chronic diastolic (congestive) heart failure; K66.0 Peritoneal adhesions (postprocedural) (postinfection); J44.9 Chronic obstructive pulmonary disease, unspecified; I25.2 Old myocardial infarction; E78.5 Hyperlipidemia, unspecified; E83.42 Hypomagnesemia; E87.6 Hypokalemia; F32.A Depression, unspecified; F41.9 Anxiety disorder, unspecified; G40.A09 Absence epileptic syndrome, not intractable, without status epilepticus; H54.61 Unqualified visual loss, right eye, normal vision left eye; I11.0 Hypertensive heart disease with heart failure; I25.10 Atherosclerotic heart disease of native coronary artery without angina pectoris; Z79.82 Long term (current) use of aspirin; Z79.899 Other long term (current) drug therapy; Z80.1 Family history of malignant neoplasm of trachea, bronchus and lung; Z85.3 Personal history of malignant neoplasm of breast; Z85.42 Personal history of malignant neoplasm of other parts of uterus; Z85.43 Personal history of malignant neoplasm of ovary; Z86.718 Personal history of other venous thrombosis and embolism; Z86.73 Personal history of transient ischemic attack (TIA), and cerebral infarction without residual deficits; Z90.13 Acquired absence of bilateral breasts and nipples; Z90.710 Acquired absence of both cervix and uterus; Z91.81 History of falling; R26.81 Unsteadiness on feet; Z88.5 Allergy status to narcotic agent; Z88.0 Allergy status to penicillin; Z88.8 Allergy status to other drugs, medicaments and biological substances
CPT/HCPCS: 80048; 80053; 81001; 83735; 85025; 85027; 86850; 86870; 86880; 86900; 86901; 87086

== ENCOUNTER → 2022-09-06 | Outpatient (CLI) | payer MEDICARE, OTHER ==
--- NOTE | 2022-09-06 10:21 | MR ---
EXAMINATION TYPE: MR angio head wo con DATE OF EXAM: 09/06/2022 COMPARISON: NONE HISTORY: Seizures, headaches, hx CHI. TECHNIQUE: Utilizing 3-D [id number] intracranial MRA of the [place] of [place] was performed. FINDINGS: The vertebrobasilar and carotid systems are patent. There is origin of the right posterior cerebral a rtery and anterior circulation left vertebral artery dominant. There is no sizable aneurysm or vascul ar malformation. IMPRESSION: 1. No evidence of vascular malformation or sizable aneurysm.
--- NOTE | 2022-09-06 11:00 | MR ---
EXAMINATION TYPE: MR brain wo con DATE OF EXAM: 09/06/2022 COMPARISON: CT scan head 12/12/2020 HISTORY: Seizures, headaches, hx CHI. TECHNIQUE: T1-weighted sagittal, T2, FLAIR, and diffusion axial, and T2 coronal coronal views of the brain are submitted. FINDINGS: There is no evidence of acute ischemia. The ventricles, basal cisterns, and sulci overlying the conv exities are consistent with the patient's age. There is no mass effect. There are multiple scattere d areas of abnormal signal throughout the white matter. Bilateral changes of moderate mastoiditis. Sella turcica has a normal appearance. Cerebellar tonsils are low-lying in position near the level of foramen magnum. No cerebellopontine an gle mass. IMPRESSION: 1. No acute intracranial process cerebellar tonsils are low lying near the foramen magnum. No tonsill ar beaking. The cerebellar tonsils do not extend below the foramen magnum to the hand. 2. Bilateral chronic mastoiditis.
== END | disposition home or self-care (01) ==
LOC: RADMRIMAIN 08:41
PROVIDERS: ATTEND Psychiatry & Neurology Neurology
DX: G40.209 Localization-related (focal) (partial) symptomatic epilepsy and epileptic syndromes with complex partial seizures, not intractable, without status epilepticus (principal); H70.13 Chronic mastoiditis, bilateral; G44.321 Chronic post-traumatic headache, intractable; Z86.69 Personal history of other diseases of the nervous system and sense organs; Z82.49 Family history of ischemic heart disease and other diseases of the circulatory system
CPT/HCPCS: 70544; 70551

== ENCOUNTER → 2022-09-06 | Outpatient (CLI) | payer MEDICARE, OTHER ==
[2022-09-06 08:19] VITALS: BP 146/90; PULSE 86; RESP 18; TEMP 98.5
--- NOTE | 2022-09-06 14:31 | P.PAINPG ---
PQRS Measure Charge Sheet Comment: A 67 yr old female with a history of severe and chronic LBP secondary to lumbar DDD and spondylosis with facet arthropathy without myelopathy presents today for medication refills. Pain level is provoked at 7 /10 in intensity, constant, localized in the lumbar spine, throbbing in character w shooting towards the and and lower back. Pain is provoked by climbing stairs and BMs. Pain is alleviated with medications, massage and rest. Interventional pain procedures completed include Patient is currently on [place] 5/325mg #120, Flexeril, Ibu, Lidoderm Patient denies any side effects of the medication(s), denies excessive drowsiness or sleepiness, denies suicidal ideation and reports that the current pain medication is helping to control the pain and improve activities of daily living. Patient denies any motor or sensory deficits. Patient denies any fever or night sweats, denies any change in the bowel movements or urination. Physical Examination: -Constitutional: Cooperative. Not in acute distress . - Neurologic: Cranial nerve II to XII intact. No focal neurological deficits. - Psychatric: Alert & oriented x 3. Matching mood & appropriate affect. Judgment and insight intact. - Musculoskeletal: Cervical spine: Muscle bulk/ tone/ strength in the bilateral upper extremities normal Vertebral body tenderness to palpation over Spurling test positive Distraction test positive Facet loading test positive TTP Thoracic spine Muscle bulk / tone/ strength in the bilateral paraspinal muscles normal Vertebral body tender to palpation over Facet loading test positive TTP Lumbar spine: Motor bulk/ tone/ strength lower extremities , thigh and legs : 5/5 Deep tendon reflexes : Normal Knee Jerk. Normal Ankle Jerk . Vertebral body tenderness to palpation over Lumbar Facet Loading Test positive Straight Leg Raise: positive at 30 degrees right side/ left side Gaenslen's Test positive Sacral spine : Severe tenderness over the Sacroiliac joint: right side / left side Range of motion: Flexion of the lumbar spine <60 degrees Range of motion: Extension of the lumbar spine <20 degrees Gaenslen's Test positive right side / left side Sade test: positive right side / left side Thigh Thrust Test positive right side / left side Sacral Thrust Test positive right side / left side Assessment and plan: Chronic LBP secondary to lumbar DDD, spondylosis with facet arthropathy without myelopathy Chronic and current use of high-risk medication (Opioids). The patient was counseled about risk of opioid use, psychological risk a ssociated with opioids and was orally counseled to not overuse , divert or sell medications. Pt is to store medication in a safe location. The patient is counseled against driving while using narcotic medications and also not to use alcohol or any illicit recreational drugs. Patient verbalized understanding that the lack of compliance will result in failure to renew narcotic prescription(s) as well as possible discharge from the clinic Diagnoses, prognosis and treatment options including but not limited to physical therapy, surgical interventions, interventional therapies and medication management including narcotics and adjuvant medication were discussed. All patient questions answered MAPS reviewed and it was appropriate. UDS collected today 09/06/22 Prescription refill for Cummings 7.5/325mg #120 w 1 RF I have spent less than 30 minutes on patient care today. Dr Abebe was available by phone for the evaluation of this patient. The time was used to review the medical records including relevant urine studies and Prescription history (MAPs), review of the available imaging, evaluation and examination of the patient, coordination of care with the medical staff and if applicable referring physicians, as well as creation of the medical record PQRS Narrative: Smoking Status Never smoker Narcotic Agreement Date Signed 07/12/22 Hx Alcohol Use (MH) No Home Medications: Ambulatory Orders Metoprolol Succinate (ER) [Toprol XL] 100 mg PO DAILY 08/01/18 Pantoprazole Sodium [Protonix] 80 mg PO DAILY 08/01/18 diazePAM [Valium] 5 mg VAGINAL BID PRN 11/24/19 Diphenoxylate HCl/Atropine [Lomotil 2.5-0.025 mg Tablet] 1 tab PO Q6H PRN 03/31/20 Potassium Chloride ER [K-Dur 20] 40 meq PO DAILY 03/31/20 Cyanocobalamin [Vitamin B-12 Injection] 1,000 mcg SQ SA 03/01/22 Dicyclomine [Bentyl] 10 mg PO TID PRN 03/01/22 SUMAtriptan succinate [Imitrex] 50 mg PO BID PRN 03/01/22 lisinopriL [Zestril] 10 mg PO DAILY 04/17/22 Albuterol Inhaler [Ventolin Hfa Inhaler] 2 puff INHALATION RT-Q6H PRN 07/04/22 Fluconazole 150 mg PO ONCE PRN 02/28/23 Ibuprofen [Motrin] 600 mg PO Q8HR PRN 07/04/22 Aspirin 81 mg PO DAILY #90 tab 07/06/22 Atorvastatin [Lipitor] 40 mg PO HS #90 tab 07/06/22 Dapagliflozin Propanediol [Farxiga] 10 mg PO DAILY #90 tab 07/06/22 Isosorbide Mononitrate ER [Imdur] 30 mg PO DAILY #90 tab 07/06/22 Nitroglycerin Sl Tabs [Nitrostat] 0.4 mg SUBLINGUAL Q5M PRN #100 tab 07/06/22 Spironolactone [Aldactone] 12.5 mg PO DAILY #90 tab 07/06/22 levETIRAcetam [Keppra] 500 mg PO Q12HR #60 tab 07/07/22 HYDROcodone/APAP 7.5-325MG [[place] 7.5-325] 1 tab PO BID PRN 30 Days #60 tab 09/06/22 HYDROcodone/APAP 7.5-325MG [[place] 7.5-325] 1 tab PO BID PRN 30 Days #60 tab 09/06/22 Controlled Substance Measures - Controlled Substance Measures Is patient prescribed a controlled substance at discharge?: Yes
== END ==
LOC: PNWHC3 07:26
PROVIDERS: ATTEND Specialist
DX: M51.36 Other intervertebral disc degeneration, lumbar region (principal); M47.816 Spondylosis without myelopathy or radiculopathy, lumbar region; G89.29 Other chronic pain; Z79.891 Long term (current) use of opiate analgesic; Z79.899 Other long term (current) drug therapy; Z88.5 Allergy status to narcotic agent; Z88.0 Allergy status to penicillin; Z88.8 Allergy status to other drugs, medicaments and biological substances
CPT/HCPCS: 80307; G0482; G0463; 99211; 99212

== ENCOUNTER → 2022-09-07 | Outpatient (CLI) | payer MEDICARE, OTHER ==
[2022-09-07 15:24] LABS: Basophils # (A) 0.04 X 10*3/uL (0.00-0.10); Eosinophils # (A) 0.22 X 10*3/uL (0.04-0.35); Eosinophils % (A) 5.4 %; HCT 45.2 % (37.2-46.3); HGB 14.2 g/dL (12.0-15.0); Immature Grans, Automated 0.5 %; Lymphocytes # (A) 1.32 X 10*3/uL (0.90-5.00); Lymphocytes % (A) 32.1 %; MCH 28.5 pg (27.0-32.0); MCHC 31.4 g/dL (32.0-37.0); MCV 90.6 fL (80.0-97.0); Mean Platelet Volume 10.9 fL (9.5-12.2); Monocytes # (A) 0.32 X 10*3/uL (0.20-1.00); Monocytes % (A) 7.8 %; NRBC Per 100 WBC 0 /100 WBCS (0.0-0.0); Neutrophils # (A) 2.19 X 10*3/uL (1.80-7.70); Neutrophils % (A) 53.2 %; Platelet Count 250 X 10*3/uL (140-440); RBC 4.99 X 10*6/uL (4.10-5.20); WBC 4.11 X 10*3/uL (4.50-10.00)
[2022-09-07 16:50] LABS: ALT 94 U/L (8-44); AST 36 U/L (13-35); African American GFR (CKD) 107.8 (60.0-200.0); Albumin 4.7 g/dL (3.8-4.9); Albumin/Globulin Ratio 1.96 (1.60-3.17); Alkaline Phosphatase 181 U/L (41-126); BUN/Creat Ratio 27.67 Ratio (12.00-20.00); Blood Urea Nitrogen 16.6 mg/dL (9.0-27.0); Calcium 9.9 mg/dL (8.7-10.3); Carbon Dioxide 23.9 mmol/L (20.0-27.5); Chloride 104 mmol/L (96-109); Globulin 2.4 g/dL (1.6-3.3); Glucose 91 mg/dL (70-110); Sodium 142 mmol/L (135-145); Total Protein 7.1 g/dL (6.2-8.2)
[2022-09-07 16:54] LABS: Appearance,Urine Clear (Clear); Bilirubin,Urine Negative (Negative); Blood,Urine Small (Negative); Color,Urine Yellow (Yellow); Ketones,Urine Negative (Negative); Nitrite,Urine Positive (Negative); PH, Urine 5.5 (5.0-8.0); Urobilinogen,Urine 0.2 (0.2,1.0)
[2022-09-07 18:24] LABS: Bacteria,Urine 3+ /HPF (None Seen); Calcium Oxalate Crystals,Urine Present /LPF (None Seen)
== END | disposition home or self-care (01) ==
LOC: LABWHC1 07:36
PROVIDERS: ATTEND Internal Medicine Interventional Cardiology
DX: Z13.29 Encounter for screening for other suspected endocrine disorder (principal); I11.0 Hypertensive heart disease with heart failure; I50.9 Heart failure, unspecified
CPT/HCPCS: 36415; 80053; 80061; 81001; 84439; 84443; 85025

== ENCOUNTER 2022-09-14 06:32 | Day surgery (SDC) | payer MEDICARE, OTHER ==
[2022-09-14] MEDS ORDERED: LACTATED RINGERS 1,000 ML IV SCH ×2 (07:30→11:45)
[2022-09-14 07:49] VITALS: RESP 18; TEMP 97.7
[2022-09-14] MEDS ORDERED: IV FLUID CONTINUATION 1,000 ML IV ONE (09:19)
[2022-09-14 09:40] VITALS: BP 130/86
[2022-09-14 09:47] VITALS: PULSE 72
--- NOTE | 2022-09-14 10:17 | FL ---
EXAMINATION TYPE: FL guided pain mgmt statistic DATE OF EXAM: 09/14/2022 HISTORY: Fluoroscopy time Total dose area product (DAP) in mGy*m? (or similar): 0.74140 IMPRESSION: 1. Fluoroscopy time.
--- NOTE | 2022-09-14 12:04 | P.PCN ---
Date of Procedure: 09/14/22 Description of Procedure: Preoperative diagnosis: Lower quadrant abdominal, and pelvic pain secondary to multiple abdominal surgeries Postoperative diagnosis: Lower quadrant abdominal pain, and pelvic pain secondary to multiple abdominal surgeries Procedure: Attempted bilateral superior hypogastric plexus block under fluoroscopic guidance Sedation: Versed 2 mg, and fentanyl 100 g Sedation supervision times: [id number] Procedure description: Patient was seen and identified in the holding area. Patient was scheduled for celiac plexus block under fluoroscopic guidance but patient denied any pain in her upper quadrant abdominal pain. So procedure changed to bilateral superior hypogastric plexus block under fluoroscopic guidance. Discussed with the patient regarding procedure, complications, alternatives. Patient clearly understood. IV was started. Patient was taken to the procedure area. ASA standard monitoring applied. Timeout completed. Patient was monitored during the procedure time. Lumbar area was prepped with ChloraPrep 1 and applied drapes after critical pause. Under AP fluoroscopic guidance unable to see L5 transverse process/ pedicle secondary to lower lumbar multiple surgeries , and instrumentation. At this point discussed with the patient guarding the procedure due to unable to locate the proper placement for needle to avoid risk of complications. Patient, and her family discussed in the recovery room. They clearly understood. Patient discharge home after meeting the discharge criteria from the recovery room. Plan: Discussed with the family, and patient regarding CT-guided her bilateral superior hypogastric plexus block or anterior abdominal approach using ultrasound guidance by interventional radiologist/ Conservative medical management.
== END 2022-09-14 09:58 | disposition home or self-care (01) ==
LOC: ORPAIN 06:32
DX: Z53.8 Procedure and treatment not carried out for other reasons (principal); R10.2 Pelvic and perineal pain; I10 Essential (primary) hypertension; G40.909 Epilepsy, unspecified, not intractable, without status epilepticus; K21.9 Gastro-esophageal reflux disease without esophagitis; Z98.890 Other specified postprocedural states; Z79.51 Long term (current) use of inhaled steroids; Z79.899 Other long term (current) drug therapy; Z98.84 Bariatric surgery status; Z90.49 Acquired absence of other specified parts of digestive tract; Z88.5 Allergy status to narcotic agent; Z88.8 Allergy status to other drugs, medicaments and biological substances
CPT/HCPCS: 99152

== ENCOUNTER → 2022-11-01 | Outpatient (CLI) | payer MEDICARE, OTHER ==
[2022-11-01 07:56] VITALS: BP 146/96; PULSE 85; RESP 18; TEMP 98
--- NOTE | 2022-11-01 14:15 | P.PAINPG ---
PQRS Measure Charge Sheet Comment: A 67 yr old female with a history of severe and chronic LBP secondary to lumbar DDD and spondylosis with facet arthropathy without myelopathy presents today for medication refills. Pain level is provoked at 7 /10 in intensity, constant, localized in the lumbar spine, throbbing in character w shooting towards the and and lower back. Pain is provoked by climbing stairs and BMs. Pain is alleviated with medications, massage and rest. Will reschedule Hypogastric Plexus block for ultrasound guided approach. Interventional pain procedures completed include DENIES Patient is currently on [place] 5/325mg #120, Flexeril, Ibu, Lidoderm Patient denies any side effects of the medication(s), denies excessive drows iness or sleepiness, denies suicidal ideation and reports that the current pain medication is helping to control the pain and improve activities of daily living. Patient denies any motor or sensory deficits. Patient denies any fever or night sweats, denies any change in the bowel movements or urination. Physical Examination: -Constitutional: Cooperative. Not in acute distress . - Neurologic: Cranial nerve II to XII intact. No focal neurological deficits. - Psychatric: Alert & oriented x 3. Matching mood & appropriate affect. Judgment and insight intact. - Musculoskeletal: Cervical spine: Muscle bulk/ tone/ strength in the bilateral upper extremities normal Vertebral body tenderness to palpation over Spurling test positive Distraction test positive Facet loading test positive TTP Thoracic spine Muscle bulk / tone/ strength in the bilateral paraspinal muscles normal Vertebral body tender to palpation over Facet loading test positive TTP Lumbar spine: Motor bulk/ tone/ strength lower extremities , thigh and legs : 5/5 Deep tendon reflexes : Normal Knee Jerk. Normal Ankle Jerk . Vertebral body tenderness to palpation over Lumbar Facet Loading Test positive Straight Leg Raise: positive at 30 degrees right side/ left side Gaenslen's Test positive Sacral spine : Severe tenderness over the Sacroiliac joint: right side / left side Range of motion: Flexion of the lumbar spine <60 degrees Range of motion: Extension of the lumbar spine <20 degrees Gaenslen's Test positive right side / left side Sade test: positive right side / left side Thigh Thrust Test positive right side / left side Sacral Thrust Test positive right side / left side Assessment and plan: Chronic LBP secondary to lumbar DDD, spondylosis with facet arthropathy without myelopathy Recommendation of ultrasound guided hypogastric plexus block reL G89.4 Risks, benefits of procedure discussed and pt verbalized understanding. Protocol for discontinuation/ continuation of medications brittany procedure discussed. Chronic and current use of high-risk medication (Opioids). The patient was counseled about risk of opioid use, psychological risk associated with opioids and was orally counseled to not overuse , divert or sell medications. Pt is to store medication in a safe location. The patient is counseled against driving while using narcotic medications and also not to use alcohol or any illicit recreational drugs. Patient verbalized understanding that the lack of compliance will result in failure to renew narcotic prescription(s) as well as possible discharge from the clinic Diagnoses, prognosis and treatment options including but not limited to physical therapy, surgical interventions, interventional therapies and medication management including narcotics and adjuvant medication were discussed. All patient questions answered MAPS reviewed and it was appropriate. UDS from 09/06/22 reviewed and consistent. Prescription refill for [place] 7.5/325mg #120 w 1 RF I have spent less than 30 minutes on patient care today. Dr Abebe was available by phone for the evaluation of this patient. The time was used to review the medical records including relevant urine studies and Prescription history (MAPs), review of the available imaging, evaluation and examination of the patient, coordination of care with the medical staff and if applicable referring physicians, as well as creation of the medical record - Pain Location Bilateral Abdomen Non-Pharmacological Interventions: Heat, Ice, Position/Reposition Pharmacological Interventions: Scheduled Medication, Topical Medication PQRS Narrative: Smoking Status Never smoker Narcotic Agreement Date Signed 07/12/22 Hx Alcohol Use (MH) No Home Medications: Ambulatory Orders Metoprolol Succinate (ER) [Toprol XL] 100 mg PO DAILY 08/01/18 Pantoprazole Sodium [Protonix] 80 mg PO DAILY 08/01/18 diazePAM [Valium] 5 mg VAGINAL BID PRN 11/24/19 Diphenoxylate HCl/Atropine [Lomotil 2.5-0.025 mg Tablet] 1 tab PO Q6H PRN 03/31/20 Cyanocobalamin [Vitamin B-12 Injection] 1,000 mcg SQ SA 03/01/22 Dicyclomine [Bentyl] 10 mg PO TID PRN 03/01/22 SUMAtriptan succinate [Imitrex] 50 mg PO BID PRN 03/01/22 lisinopriL [Zestril] 10 mg PO DAILY 04/17/22 Albuterol Inhaler [Ventolin Hfa Inhaler] 2 puff INHALATION RT-Q6H PRN 07/04/22 Fluconazole 150 mg PO ONCE PRN 07/04/22 Ibuprofen [Motrin] 800 mg PO Q8HR PRN 07/04/22 Atorvastatin [Lipitor] 40 mg PO HS #90 tab 07/06/22 Nitroglycerin Sl Tabs [Nitrostat] 0.4 mg SUBLINGUAL Q5M PRN #100 tab 07/06/22 Aspirin 325 mg PO DAILY 09/13/22 Brivaracetam [Briviact] 100 mg PO BID 09/13/22 Furosemide [Lasix] 10 mg PO DAILY 09/13/22 Lidocaine/Menthol [Lidocaine-Menthol 4%-1% Patch] 1 each TP DIRECTED 09/13/22 HYDROcodone/APAP 7.5-325MG [[place] 7.5-325] 1 tab PO Q6H PRN 30 Days #120 tab 11/01/22 HYDROcodone/APAP 7.5-325MG [[place] 7.5-325] 1 tab PO Q6H PRN 30 Days #120 tab 11/01/22 Controlled Substance Measures - Controlled Substance Measures Is patient prescribed a controlled substance at discharge?: Yes When asked, does pt state using other controlled substances?: Yes If prescribed controlled substance>3 days was MAPS reviewed?: Yes
== END ==
LOC: PNWHC3 07:10
PROVIDERS: ATTEND Specialist
DX: M51.36 Other intervertebral disc degeneration, lumbar region (principal); M47.816 Spondylosis without myelopathy or radiculopathy, lumbar region; G89.4 Chronic pain syndrome; M53.3 Sacrococcygeal disorders, not elsewhere classified; Z88.0 Allergy status to penicillin; Z88.8 Allergy status to other drugs, medicaments and biological substances; Z79.891 Long term (current) use of opiate analgesic; Z79.82 Long term (current) use of aspirin
CPT/HCPCS: 99211

== ENCOUNTER → 2022-11-01 | Outpatient (CLI) | payer MEDICARE, OTHER ==
[2022-11-01 17:14] LABS: ALT 56 U/L (8-44); AST 36 U/L (13-35); Albumin 4.5 d/dL (3.8-4.9); Albumin/Globulin Ratio 1.67 Ratio (1.60-3.17); Alkaline Phosphatase 158 U/L (41-126); Blood Urea Nitrogen 10.8 mg/dL (9.0-27.0); Calcium 10.2 mg/dL (8.7-10.3); Carbon Dioxide 22.9 mmol/L (21.6-31.8); Chloride 106 mmol/L (96-109); Globulin 2.7 d/dL (1.6-3.3); Glucose 96 mg/dL (70-110); Potassium 4.1 mmol/L (3.5-5.5); Sodium 142 mmol/L (135-145); Total Bilirubin <0.2 mg/dL (0.3-1.2); Total Protein 7.2 d/dL (6.2-8.2)
== END | disposition home or self-care (01) ==
LOC: LABWHC1 08:14
PROVIDERS: ATTEND Family Medicine
DX: I50.9 Heart failure, unspecified (principal); K21.9 Gastro-esophageal reflux disease without esophagitis; G40.209 Localization-related (focal) (partial) symptomatic epilepsy and epileptic syndromes with complex partial seizures, not intractable, without status epilepticus
CPT/HCPCS: 36415; 80053; 87338

== ENCOUNTER 2022-11-30 10:12 | Emergency (ER) | payer MEDICARE, OTHER ==
[2022-11-30] MEDS ORDERED: SODIUM CHLORIDE 0.9% 500 ML 500 ML IV STA ×2 (10:20→13:20)
[2022-11-30] MEDS ORDERED: ONDANSETRON 4 MG/2 ML VIAL IVP STA (10:31)
[2022-11-30] MEDS ORDERED: HYDROmorphone 0.5 MG/0.5 ML SYRINGE IVP STA (10:31)
[2022-11-30] MEDS ORDERED: PANTOPRAZOLE 40 MG/10 ML VIAL IVP STA (10:34)
--- NOTE | 2022-11-30 10:36 | ED ---
Abdominal Pain HPI - General Chief Complaint: Abdominal Pain Stated Complaint: abd pain Time Seen by Provider: 11/30/22 10:13 Source: patient, EMS Mode of arrival: EMS Limitations: no limitations - History of Present Illness Initial Comments: Patient is a 67-year-old female who presents the emergency department for abdominal pain. It is intermittent in the left lower quadrant, sharp in nature, no radiation. She reports multiple episodes of diarrhea, nonbloody. Taking Lomotil which has improved diarrhea. Reports nausea with a couple episodes of vomiting, nonbilious, nonbloody. Patient has history of multiple bowel resections, cholecystecomy, appendectomy. She does have history of diverticulitis. - Related Data Home Medications Medication Instructions Recorded Confirmed Metoprolol Succinate (ER) [Toprol 100 mg PO DAILY 08/01/18 11/30/22 XL] Pantoprazole Sodium [Protonix] 80 mg PO DAILY 08/01/18 11/30/22 diazePAM [Valium] 5 mg VAGINAL BID PRN 11/24/19 11/30/22 Diphenoxylate HCl/Atropine 1 tab PO Q6H PRN 03/31/20 11/30/22 [Lomotil 2.5-0.025 mg Tablet] Cyanocobalamin [Vitamin B-12 1,000 mcg SQ SA 03/01/22 11/30/22 Injection] Dicyclomine [Bentyl] 10 mg PO TID PRN 03/01/22 11/30/22 lisinopriL [Zestril] 10 mg PO DAILY 04/17/22 11/30/22 Albuterol Inhaler [Ventolin Hfa 2 puff INHALATION RT-QID PRN 07/04/22 11/30/22 Inhaler] Ibuprofen [Motrin] 800 mg PO Q8HR PRN 07/04/22 11/30/22 Brivaracetam [Briviact] 50 mg PO BID 09/13/22 11/30/22 Lidocaine/Menthol 1 patch TRANSDERM DAILY PRN 09/13/22 11/30/22 [Lidocaine-Menthol 4%-1% Patch] Aspirin EC [Ecotrin] 325 mg PO DAILY 11/30/22 11/30/22 Cyclobenzaprine [Flexeril] 10 mg PO TID PRN 11/30/22 11/30/22 Furosemide [Lasix] 20 mg PO DAILY 11/30/22 11/30/22 HYDROcodone/APAP 7.5-325MG [[place] 1 tab PO Q6H PRN 11/30/22 11/30/22 7.5-325] Nitroglycerin Sl Tabs [Nitrostat] 0.4 mg SL Q5M PRN 11/30/22 11/30/22 Potassium Chloride ER [K-Dur 20] 40 meq PO DAILY 11/30/22 11/30/22 SUMAtriptan succinate [Imitrex] 100 mg PO BID PRN 11/30/22 11/30/22 Previous Rx's Medication Instructions Recorded Atorvastatin [Lipitor] 40 mg PO HS #90 tab 07/06/22 Ibuprofen [Motrin] 400 mg PO Q6HR PRN #30 tab 11/30/22 Ondansetron Odt [Zofran Odt] 4 mg PO Q8HR PRN #10 tab 11/30/22 Allergies Allergy/AdvReac Type Severity Reaction Status Date / Time Penicillins Allergy Anaphylaxis Verified 11/30/22 12:44 phenobarbital Allergy Rash/Hives Verified 11/30/22 12:44 phenytoin [From Dilantin] Allergy Anaphylaxis Verified 11/30/22 12:44 carbamazepine [From Tegretol] AdvReac increases Verified 11/30/22 12:44 seizures Review of Systems ROS Statement: Those systems with pertinent positive or pertinent negative responses have been documented in the HPI. ROS Other: All systems not noted in ROS Statement are negative. Past Medical History Past Medical History: Cancer, Heart Failure, COPD, CVA/TIA, Deep Vein Thrombosis (DVT), GERD/Reflux, Hearing Disorder / Deafness, Hypertension, Myocardial Infarction (OK), Neurologic Disorder, Osteoarthritis (OA), Seizure Disorder Additional Past Medical History / Comment(s): History of bilateral breast cancer, ovarian cancer, uterine cancer, history of CVA (no residual) back in 1982, history of irregular heart rate possibly atrial fibrillation many years back, history of petit mal seizures (none in decades), coronary artery disease, previous OK, history of DVT, multiple bowel obstruction requiring previous abdominal surgeries and bowel resection. She also has renal cysts, SSS, CHF, short gut syndrome, hx. of aoustic neuroma left ear Last Myocardial Infarction Date:: 1997 History of Any Multi-Drug Resistant Organisms: MRSA Date of last positivie culture/infection: 2003 MDRO Source:: lt hip Past Surgical History: Appendectomy, Back Surgery, Bowel Resection, Breast Surgery, Cholecystectomy, Hernia Repair, Hysterectomy, Orthopedic Surgery, Tonsillectomy Additional Past Surgical History / Comment(s): earnest mastectomy, oopherectomy back surgery x5 with last sx cage in back, bowel resection x5-6, earnest. carpal tunnel, lt rotator cuff repair Past Anesthesia/Blood Transfusion Reactions: Previous Problems w/ Anesthesia Additional Past Anesthesia/Blood Transfusion Reaction / Comment(s): experiences anxiety prior to surgery and agitiation. b/p elevates during surgery. woke up during surgery. difficult IV start Past Psychological History: Anxiety, Depression Smoking Status: Never smoker Past Alcohol Use History: None Reported Past Drug Use History: None Reported - Past Family History Mother Family Medical History: Cancer Additional Family Medical History / Comment(s): Lung cancer. Father Family Medical History: Cancer Additional Family Medical History / Comment(s): "Cancer all over body." Brother(s) Family Medical History: Cancer Additional Family Medical History / Comment(s): Lung cancer with metastasis. General Exam Limitations: no limitations General appearance: alert Eye exam: Present: normal appearance Respiratory exam: Present: normal lung sounds bilaterally. Absent: respiratory distress, wheezes, rales, rhonchi, stridor Cardiovascular Exam: Present: regular rate, normal rhythm, normal heart sounds. Absent: systolic murmur, diastolic murmur, rubs, gallop, clicks GI/Abdominal exam: Present: soft, tenderness (mild LLQ ), normal bowel sounds. Absent: distended, guarding, rebound, rigid Neurological exam: Present: alert Psychiatric exam: Present: normal affect, normal mood Skin exam: Present: warm, dry, intact, normal color. Absent: rash Course Vital Signs 11/30/22 11/30/22 11/30/22 10:21 13:05 14:00 Temperature 97.9 F 98.7 F Pulse Rate 86 106 H 84 Respiratory 16 20 18 Rate Blood Pressure 164/105 130/75 114/64 O2 Sat by Pulse 93 L 98 97 Oximetry Medical Decision Making - Medical Decision Making EKG taken at 10:17, interpreted by myself Sinus tachycardia, nonspecific T-wave abnormality Ventricular rate 111, MO interval 207, QRS duration 90, QTc 354 Was pt. sent in by a medical professional or institution ([facility], [facility], urgent care, hospital, or intermediate...) When possible be specific @ -No Did you speak to anyone other than the patient for history (EMS, parent, family, police, friend...)? What history was obtained from this source @ -No Did you review nursing and triage notes (agree or disagree)? Why? @ -I reviewed and agree with nursing and triage notes Were old charts reviewed (outside hosp., previous admission, EMS record, old EKG, old radiological studies, urgent care reports/EKG's, intermediate records)? Report findings @ -No old charts were reviewed Differential Diagnosis (chest pain, altered mental status, abdominal pain women, abdominal pain men, vaginal bleeding, weakness, fever, dyspnea, syncope, headache, dizziness, GI bleed, back pain, seizure, CVA, palpatations, mental health)? @ -Differential Abdominal Pain Women: Appendicitis, Cholecystitis, diverticulosis, ischemic bowel, pancreatitis, hepatitis, UTI, gastroenteritis, AAA, incarcerated hernia, bowel obstruction, constipation, inflammatory bowel, hepatitis, peptic ulcer disease, splenic infarction, perforated viscus, vulvitis, ovarian torsion, PID, kidney stone, placenta abruption, this is not meant to be an all-inclusive list EKG interpreted by me (3pts min.). @ -As above X-rays interpreted by me (1pt min.). @ -None done CT interpreted by me (1pt min.). @ -No acute intra abdominal process U/S interpreted by me (1pt. min.). @ -None done What testing was considered but not performed or refused? (CT, X-rays, U/S, labs)? Why? @ -None What meds were considered but not given or refused? Why? @ -None Did you discuss the management of the patient with other professionals (professionals i.e. [facility], [facility], lab, RT, psych nurse, social organization professor, medical administrator, teacher, state patrol officer, pillowcase folder)? Give summary @ -No Was smoking cessation discussed for >3mins.? @ -No Was critical care preformed (if so, how long)? @ -No Were there social determinants of health that impacted care today? How? (Homelessness, low income, unemployed, alcoholism, drug addiction, transportation, low edu. Level, literacy, decrease access to med. care, intermediate, rehab)? @ -No Was there de-escalation of care discussed even if they declined (Discuss DNR or withdrawal of care, Hospice)? DNR status @ -No What co-morbidities impacted this encounter? (DM, HTN, Smoking, COPD, CAD, Cancer, CVA, ARF, Chemo, Hep., AIDS, mental health diagnosis, sleep apnea, morbid obesity)? @ -None Was patient admitted / discharged? Hospital course, mention meds given and route, prescriptions, significant lab abnormalities, going to OR and other pe rtinent info. @ -Patient presenting for pain in her left lower abdomen. She is nontoxic appearing, afebrile. She does appear dehydrated with mild tachycardia at 106. Labs obtained there is no leukocytosis. There is hypokalemia at 3.1 and anion gap acidosis, CO2 of 14, anion gap is 16, likely related to vomiting. Other laboratory studies are relatively unremarkable. CT of the abdomen and pelvis interpreted by myself shows no acute process to explain symptoms. Pain controlled. Potassium replenished. Patient hydrated tachycardia resolved. Patient feeling better and requesting to go home. She is tolerating oral fluids no further episodes of vomiting. She is discharged in stable condition with strict return parameters. Undiagnosed new problem with uncertain prognosis? @ -No Drug Therapy requiring intensive monitoring for toxicity (Heparin, Nitro, Insulin, Cardizem)? @ -No Were any procedures done? @ -No Diagnosis/symptom? @ abdominal pain, hypokalemia, dehydration Acute, or Chronic, or Acute on Chronic? @ -acute Uncomplicated (without systemic symptoms) or Complicated (systemic symptoms)? @ -uncomplicated Side effects of treatment? @ -No Exacerbation, Progression, or Severe Exacerbation? @ -No Poses a threat to life or bodily function? How? (Chest pain, USA, OK, pneumonia, PE, COPD, DKA, ARF, appy, cholecystitis, CVA, Diverticulitis, Homicidal, Suicidal, threat to staff... and all critical care pts) @ -No Dr. Navarrete is my attending - Lab Data Result diagrams: 11/30/22 11:02 11/30/22 11:02 Lab Results 11/30/22 11/30/22 11/30/22 Range/Units 11:02 11:02 11:02 WBC 9.0 (3.8-10.6) k/uL RBC 4.34 (3.80-5.40) m/uL Hgb 12.6 (11.4-16.0) gm/dL Hct 37.8 (34.0-46.0) % MCV 86.9 (80.0-100.0) fL MCH 29.0 (25.0-35.0) pg MCHC 33.4 (31.0-37.0) g/dL RDW 14.2 (11.5-15.5) % Plt Count 260 (150-450) k/uL MPV 8.1 Neutrophils % 79 % Lymphocytes % 13 % Monocytes % 5 % Eosinophils % 2 % Basophils % 0 % Neutrophils # 7.1 (1.3-7.7) k/uL Lymphocytes # 1.1 (1.0-4.8) k/uL Monocytes # 0.5 (0-1.0) k/uL Eosinophils # 0.1 (0-0.7) k/uL Basophils # 0.0 (0-0.2) k/uL Sodium 143 (137-145) mmol/L Potassium 3.1 L (3.5-5.1) mmol/L Chloride 113 H (98-107) mmol/L Carbon Dioxide 14 L (22-30) mmol/L Anion Gap 16 mmol/L BUN 12 (7-17) mg/dL Creatinine 0.59 (0.52-1.04) mg/dL Est GFR (CKD-EPI)AfAm >90 (>60 ml/min/1.73 sqM) Est GFR (CKD-EPI)NonAf >90 (>60 ml/min/1.73 sqM) Glucose 90 (74-99) mg/dL Plasma Lactic Acid Eduardo 1.0 (0.7-2.0) mmol/L Calcium 9.1 (8.4-10.2) mg/dL Magnesium 1.7 (1.6-2.3) mg/dL Total Bilirubin 0.4 (0.2-1.3) mg/dL AST 35 (14-36) U/L ALT 38 H (4-34) U/L Alkaline Phosphatase 162 H (38-126) U/L Total Protein 7.0 (6.3-8.2) g/dL Albumin 3.9 (3.5-5.0) g/dL Lipase 85 (23-300) U/L Urine Color Urine Appearance (Clear) Urine pH (5.0-8.0) Ur Specific [place] (1.001-1.035) Urine Protein (Negative) Urine Glucose (UA) (Negative) Urine Ketones (Negative) Urine Blood (Negative) Urine Nitrite (Negative) Urine Bilirubin (Negative) Urine Urobilinogen (<2.0) mg/dL Ur Leukocyte Esterase (Negative) Urine RBC (0-5) /hpf Urine WBC (0-5) /hpf Urine Bacteria (None) /hpf 11/30/22 Range/Units 13:04 WBC (3.8-10.6) k/uL RBC (3.80-5.40) m/uL Hgb (11.4-16.0) gm/dL Hct (34.0-46.0) % MCV (80.0-100.0) fL MCH (25.0-35.0) pg MCHC (31.0-37.0) g/dL RDW (11.5-15.5) % Plt Count (150-450) k/uL MPV Neutrophils % % Lymphocytes % % Monocytes % % Eosinophils % % Basophils % % Neutrophils # (1.3-7.7) k/uL Lymphocytes # (1.0-4.8) k/uL Monocytes # (0-1.0) k/uL Eosinophils # (0-0.7) k/uL Basophils # (0-0.2) k/uL Sodium (137-145) mmol/L Potassium (3.5-5.1) mmol/L Chloride (98-107) mmol/L Carbon Dioxide (22-30) mmol/L Anion Gap mmol/L BUN (7-17) mg/dL Creatinine (0.52-1.04) mg/dL Est GFR (CKD-EPI)AfAm (>60 ml/min/1.73 sqM) Est GFR (CKD-EPI)NonAf (>60 ml/min/1.73 sqM) Glucose (74-99) mg/dL Plasma Lactic Acid Eduardo (0.7-2.0) mmol/L Calcium (8.4-10.2) mg/dL Magnesium (1.6-2.3) mg/dL Total Bilirubin (0.2-1.3) mg/dL AST (14-36) U/L ALT (4-34) U/L Alkaline Phosphatase (38-126) U/L Total Protein (6.3-8.2) g/dL Albumin (3.5-5.0) g/dL Lipase (23-300) U/L Urine Color Colorless Urine Appearance Clear (Clear) Urine pH 6.0 (5.0-8.0) Ur Specific [place] 1.020 (1.001-1.035) Urine Protein Negative (Negative) Urine Glucose (UA) Negative (Negative) Urine Ketones 2+ H (Negative) Urine Blood Negative (Negative) Urine Nitrite Positive (Negative) Urine Bilirubin Negative (Negative) Urine Urobilinogen <2.0 (<2.0) mg/dL Ur Leukocyte Esterase Negative (Negative) Urine RBC 2 (0-5) /hpf Urine WBC 1 (0-5) /hpf Urine Bacteria Rare H (None) /hpf Disposition Clinical Impression: Abdominal pain, Dehydration, Hypokalemia Disposition: HOME SELF-CARE Condition: Good Instructions (If sedation given, give patient instructions): Abdominal Pain (ED) Additional Instructions: Increase fluid and oral intake as tolerated. Continue home prescription of Lomotil for diarrhea. Follow-up with primary care provider in one to 2 days. Return to the emergency department if you experience new, concerning, or worsening symptoms. Prescriptions: Ibuprofen [Motrin] 400 mg PO Q6HR PRN #30 tab PRN Reason: pain Ondansetron Odt [Zofran Odt] 4 mg PO Q8HR PRN #10 tab PRN Reason: Nausea Is patient prescribed a controlled substance at d/c from ED?: No Referrals: Bia May MD [Primary Care Provider] - 1-2 days
[2022-11-30 11:41] LABS: Basophils % (A) 0 %; Eosinophils # (A) 0.1 k/uL (0-0.7); Eosinophils % (A) 2 %; HCT 37.8 % (34.0-46.0); HGB 12.6 gm/dL (11.4-16.0); Lymphocytes # (A) 1.1 k/uL (1.0-4.8); Lymphocytes % (A) 13 %; MCHC 33.4 g/dL (31.0-37.0); MCV 86.9 fL (80.0-100.0); Mean Platelet Volume 8.1; Monocytes # (A) 0.5 k/uL (0-1.0); Monocytes % (A) 5 %; Neutrophils # (A) 7.1 k/uL (1.3-7.7); Neutrophils % (A) 79 %; Platelet Count 260 k/uL (150-450); RBC 4.34 m/uL (3.80-5.40); RDW 14.2 % (11.5-15.5)
[2022-11-30 11:57] LABS: ALT 38 U/L (4-34); AST 35 U/L (14-36); African American GFR (CKD) >90 (>60 ml/min/1.73 sqM); Albumin 3.9 g/dL (3.5-5.0); Alkaline Phosphatase 162 U/L (38-126); Anion Gap 16 mmol/L; Blood Urea Nitrogen 12 mg/dL (7-17); Calcium 9.1 mg/dL (8.4-10.2); Carbon Dioxide 14 mmol/L (22-30); Chloride 113 mmol/L (98-107); Glucose 90 mg/dL (74-99); Lipase 85 U/L (23-300); Magnesium 1.7 mg/dL (1.6-2.3); Non-African American GFR(CKD) >90 (>60 ml/min/1.73 sqM); Potassium 3.1 mmol/L (3.5-5.1); Sodium 143 mmol/L (137-145); Total Bilirubin 0.4 mg/dL (0.2-1.3)
[2022-11-30] MEDS ORDERED: POTASSIUM CHLORIDE ER 20 MEQ TAB.ER PO STA (11:59)
--- NOTE | 2022-11-30 12:58 | CT ---
EXAMINATION TYPE: CT abdomen pelvis w con CT DLP: 754.3 mGycm, Automated exposure control for dose reduction was used. DATE OF EXAM: 11/30/2022 12:35 PM COMPARISON: CT abdomen pelvis most recent from CLINICAL INDICATION:Female, 67 years old with history of LLQ pain; TECHNIQUE: Axial CT of the abdomen and pelvis. Sagittal and coronal reformats were created on a [employer] workstation. Contrast used:100 ml mL of Isovue 300 with IV Contrast, (none if empty) Oral contrast used: without Oral Contrast (none if empty) FINDINGS: LOWER CHEST: Bilateral breast implants with extra capsular calcifications most proximal in the left. ABDOMEN LIVER: Unremarkable GALLBLADDER AND BILE DUCTS: Gallbladder is surgically absent with mild intrahepatic and extra hepatic biliary dilatation likely physiologic and a postcholecystectomy change. No evidence of choledocholit hiasis. PANCREAS: Unremarkable. SPLEEN: Unremarkable. ADRENAL GLANDS: Unremarkable. KIDNEYS AND URETERS: Nonobstructing left renal calculus measuring up tor 17 mm. Renal cyst present. PELVIS BLADDER: Unremarkable REPRODUCTIVE: Unremarkable. ABDOMEN & PELVIS STOMACH AND BOWEL: . Scattered diverticula are noted throughout the colon. No evidence of bowel obstr uction. Post surgical changes to drain the anterior lower abdomen small bowel with sutures present. N o evidence of bowel obstruction. Oral contrast extends to the rectum. PERITONEUM/RETROPERITONEUM: No evidence of pneumoperitoneum or free fluid. VASCULATURE: No evidence of aortic aneurysm. MUSCULOSKELETAL: Postsurgical changes to the lower spine. 4 L5 and S1. LYMPH NODES: No gross evidence for lymphadenopathy. SOFT TISSUE/ABDOMINAL WALL: Calcified granulomas within the buttocks bilaterally. Post surgical nieto es anterior abdominal wall. IMPRESSION: 1. Postsurgical changes to the bowel with out evidence of obstruction. No definitive acute process i n the left lower quadrant to explain the patient's pain. Few scattered colonic diverticula present. N o evidence for obstructive uropathy. 2. Nonobstructing left renal calculus.
[2022-11-30 14:00] LABS: Bacteria,Urine Rare /hpf; RBC,Urine 2 /hpf (0-5); WBC,Urine 1 /hpf (0-5)
[2022-11-30 14:09] LABS: Appearance,Urine Clear (Clear); Bilirubin,Urine Negative (Negative); Blood,Urine Negative (Negative); Color,Urine Colorless; Glucose,Urine (UA) Negative (Negative); Ketones,Urine 2+ (Negative); Nitrite,Urine Positive (Negative); Protein,Urine Negative (Negative); Urobilinogen,Urine <2.0 mg/dL (<2.0)
[2022-11-30 14:10] LABS: Leukocyte Esterase,Urine Negative (Negative)
[2022-11-30 14:40] VITALS: BP 114/64; PULSE 84; RESP 18; TEMP 98.7
== END 2022-11-30 15:18 | disposition home or self-care (01) ==
LOC: EC 10:12
DX: R10.32 Left lower quadrant pain (principal); E86.0 Dehydration; E87.6 Hypokalemia; J44.9 Chronic obstructive pulmonary disease, unspecified; I11.0 Hypertensive heart disease with heart failure; I50.9 Heart failure, unspecified; K21.9 Gastro-esophageal reflux disease without esophagitis; I25.2 Old myocardial infarction; Z86.73 Personal history of transient ischemic attack (TIA), and cerebral infarction without residual deficits; Z86.718 Personal history of other venous thrombosis and embolism; F41.9 Anxiety disorder, unspecified; F32.A Depression, unspecified; Z88.0 Allergy status to penicillin; Z88.8 Allergy status to other drugs, medicaments and biological substances; Z79.82 Long term (current) use of aspirin; Z79.899 Other long term (current) drug therapy
CPT/HCPCS: 36415; 80053; 83605; 83690; 83735; 85025; 81001; 74177; 99285; 96374; 96375 ×2; J2405; C9113; J1170; Q9967; 93005

== ENCOUNTER 2022-11-30 23:02 | Inpatient (IN) | payer MEDICARE, OTHER ==
[2022-11-30] MEDS ORDERED: ONDANSETRON 4 MG/2 ML VIAL IVP STA (23:38)
[2022-11-30] MEDS ORDERED: SODIUM CHLORIDE 0.9% 1,000 ML IV STA (23:38)
--- NOTE | 2022-11-30 23:38 | ED ---
Recheck HPI - General Chief Complaint: Nausea/Vomiting/Diarrhea Stated Complaint: Abd pain Time Seen by Provider: 11/30/22 23:16 Source: patient, EMS, RN notes reviewed, old records reviewed Mode of arrival: EMS Limitations: no limitations - History of Present Illness Initial Comments: This is a 67-year-old female for recheck. Recheck of abdominal pain seen earlier this morning. Patient states he has multiple histories of small bowel obstructions. Positive nausea no vomiting patient states she has computed tomography scan this morning which was normal. Pain and symptoms of been persistent patient also admits to diarrhea. MD Complaint: other (Recheck of abdominal pain from earlier today with history of chronic abdominal pain) -: days(s) Returns Today for: persistent/worsening pain related to initial visit Symptoms Since Prior Visit: worsening pain Associated Symptoms: nausea, abdominal pain Treatments Prior to Arrival: Given Pain Meds on - Related Data Home Medications Medication Instructions Recorded Confirmed Metoprolol Succinate (ER) [Toprol 100 mg PO DAILY 08/01/18 12/01/22 XL] Pantoprazole Sodium [Protonix] 80 mg PO DAILY 08/01/18 12/01/22 diazePAM [Valium] 5 mg VAGINAL BID PRN 11/24/19 12/01/22 Diphenoxylate HCl/Atropine 1 tab PO Q6H PRN 03/31/20 12/01/22 [Lomotil 2.5-0.025 mg Tablet] Cyanocobalamin [Vitamin B-12 1,000 mcg SQ SA 03/01/22 12/01/22 Injection] Dicyclomine [Bentyl] 10 mg PO TID PRN 03/01/22 12/01/22 lisinopriL [Zestril] 10 mg PO DAILY 04/17/22 12/01/22 Albuterol Inhaler [Ventolin Hfa 2 puff INHALATION RT-QID PRN 07/04/22 12/01/22 Inhaler] Ibuprofen [Motrin] 800 mg PO Q8HR PRN 07/04/22 12/01/22 Brivaracetam [Briviact] 50 mg PO BID 09/13/22 12/01/22 Lidocaine/Menthol 1 patch TRANSDERM DAILY PRN 09/13/22 12/01/22 [Lidocaine-Menthol 4%-1% Patch] Aspirin EC [Ecotrin] 325 mg PO DAILY 11/30/22 12/01/22 Cyclobenzaprine [Flexeril] 10 mg PO TID PRN 11/30/22 12/01/22 Furosemide [Lasix] 20 mg PO DAILY 11/30/22 12/01/22 HYDROcodone/APAP 7.5-325MG [[place] 1 tab PO Q6H PRN 11/30/22 12/01/22 7.5-325] Nitroglycerin Sl Tabs [Nitrostat] 0.4 mg SL Q5M PRN 11/30/22 12/01/22 Potassium Chloride ER [K-Dur 20] 40 meq PO DAILY 11/30/22 12/01/22 SUMAtriptan succinate [Imitrex] 100 mg PO BID PRN 11/30/22 12/01/22 Previous Rx's Medication Instructions Recorded Atorvastatin [Lipitor] 40 mg PO HS #90 tab 07/06/22 Ibuprofen [Motrin] 400 mg PO Q6HR PRN #30 tab 11/30/22 Ondansetron Odt [Zofran ODT] 4 mg PO Q8HR PRN #10 tab 11/30/22 Allergies Allergy/AdvReac Type Severity Reaction Status Date / Time Penicillins Allergy Anaphylaxis Verified 12/01/22 06:48 phenobarbital Allergy Rash/Hives Verified 12/01/22 06:48 phenytoin [From Dilantin] Allergy Anaphylaxis Verified 12/01/22 06:48 carbamazepine [From Tegretol] AdvReac increases Verified 12/01/22 06:48 seizures Review of Systems ROS Statement: Those systems with pertinent positive or pertinent negative responses have been documented in the HPI. ROS Other: All systems not noted in ROS Statement are negative. Past Medical History Past Medical History: Cancer, Heart Failure, COPD, CVA/TIA, Deep Vein Thrombosis (DVT), GERD/Reflux, Hearing Disorder / Deafness, Hypertension, Myocardial Infarction ([place]), Neurologic Disorder, Osteoarthritis (OA), Seizure Disorder Additional Past Medical History / Comment(s): History of bilateral breast cancer, ovarian cancer, uterine cancer, history of CVA (no residual) back in 1982, history of irregular heart rate possibly atrial fibrillation many years back, history of petit mal seizures (none in decades), coronary artery disease, previous [place], history of DVT, multiple bowel obstruction requiring previous abdominal surgeries and bowel resection. She also has renal cysts, SSS, CHF, short gut syndrome, hx. of aoustic neuroma left ear Last Myocardial Infarction Date:: 1997 History of Any Multi-Drug Resistant Organisms: MRSA Date of last positivie culture/infection: 2003 MDRO Source:: lt hip Past Surgical History: Appendectomy, Back Surgery, Bowel Resection, Breast Surgery, Cholecystectomy, Hernia Repair, Hysterectomy, Orthopedic Surgery, Tonsillectomy Additional Past Surgical History / Comment(s): earnest mastectomy, oopherectomy back surgery x5 with last sx cage in back, bowel resection x5-6, earnest. carpal tunnel, lt rotator cuff repair Past Anesthesia/Blood Transfusion Reactions: Previous Problems w/ Anesthesia Additional Past Anesthesia/Blood Transfusion Reaction / Comment(s): experiences anxiety prior to surgery and agitiation. b/p elevates during surgery. woke up during surgery. difficult IV start Past Psychological History: Anxiety, Depression Smoking Status: Never smoker Past Alcohol Use History: None Reported Past Drug Use History: None Reported - Past Family History Mother Family Medical History: Cancer Additional Family Medical History / Comment(s): Lung cancer. Father Family Medical History: Cancer Additional Family Medical History / Comment(s): "Cancer all over body." Brother(s) Family Medical History: Cancer Additional Family Medical History / Comment(s): Lung cancer with metastasis. General Exam Limitations: no limitations General appearance: alert, in no apparent distress Head exam: Present: atraumatic, normocephalic, normal inspection Eye exam: Present: normal appearance, PERRL, EOMI. Absent: scleral icterus, conjunctival injection, periorbital swelling ENT exam: Present: normal exam, mucous membranes moist Neck exam: Present: normal inspection. Absent: tenderness, meningismus, lymphadenopathy Respiratory exam: Present: normal lung sounds bilaterally. Absent: respiratory distress, wheezes, rales, rhonchi, stridor Cardiovascular Exam: Present: regular rate, normal rhythm, normal heart sounds. Absent: systolic murmur, diastolic murmur, rubs, gallop, clicks GI/Abdominal exam: Present: soft, normal bowel sounds. Absent: distended, tenderness, guarding, rebound, rigid Extremities exam: Present: normal inspection, full ROM, normal capillary refill. Absent: tenderness, pedal edema, joint swelling, calf tenderness Back exam: Present: normal inspection Neurological exam: Present: alert, oriented X3, CN II-XII intact Psychiatric exam: Present: normal affect, normal mood Skin exam: Present: warm, dry, intact, normal color. Absent: rash Course Vital Signs 11/30/22 12/01/22 12/01/22 23:06 07:00 07:22 Temperature 97 F L 97.7 F Pulse Rate 76 72 Pulse Rate [ 79 Pulse Oximetery ] Respiratory 16 18 18 Rate Blood Pressure 140/83 134/66 Blood Pressure 147/75 [Left Arm] O2 Sat by Pulse 99 100 98 Oximetry - Reevaluation(s) Reevaluation #1: 11/30/22 23:36 Medical records reviewed 11/30/22 23:36 Here visit from she is also reviewed Reevaluation #2: 12/01/22 02:27 Patient symptoms are improving Reevaluation #3: 12/01/22 02:27 Patient is informed of results and questions answered Reevaluation #4: 11/30/22 23:37 Was pt. sent in by a medical professional or institution (Dr. PA, LEARNING DISABILITIES RESOURCE TEACHER, urgent care, hospital, or jail...) When possible be specific @ -no Did you speak to anyone other than the patient for history (EMS, parent, family, police, friend...)? What history was obtained from this source @ -no Did you review nursing and triage notes (agree or disagree)? Why? @ -agree Are old charts reviewed (outside hosp., previous admission, EMS record, old EKG, old radiological studies, urgent care reports/EKG's, jail records)? Report findings @ -yes ER visit from earlier today Differential Diagnosis (chest pain, altered mental status, abdominal pain women, abdominal pain men, vaginal bleeding, weakness, fever, dyspnea, syncope, headache, dizziness, GI bleed, back pain, seizure, CVA, palpatations, mental health, musculoskeletal)? @ -prior EKG interpreted by me (3pts min.). @ -no X-rays interpreted by me (1pt min.). @ -yes CT interpreted by me (1pt min.). @ -no U/S interpreted by me (1pt. min.). @ -no What testing was considered but not performed or refused? (CT, X-rays, U/S, labs)? Why? @ -none What meds were considered but not given or refused? Why? @ -none Did you discuss the management of the patient with other professionals (professionals i.e. , PA, LEARNING DISABILITIES RESOURCE TEACHER, lab, RT, psych nurse, healthcare social worker, wool shearing supervisor, teacher, boating safety officer, ed case manager)? Give summary @ -no Was smoking cessation discussed for >3mins.? @ -no Was critical care preformed (if so, how long)? @ -no Were there social determinants of health that impacted care today? How? (Homelessness, low income, unemployed, alcoholism, drug addiction, transportation, low edu. Level, literacy, decrease access to med. care, usp, rehab)? @ -none Was there de-escalation of care discussed even if they declined (Discuss DNR or withdrawal of care, Hospice)? DNR status @ -no What co-morbidities impacted this encounter? (DM, HTN, Smoking, COPD, CAD, Cancer, CVA, ARF, Chemo, Hep., AIDS, mental health diagnosis, sleep apnea, morbid obesity)? @ -none Was patient admitted / discharged? Hospital course, mention meds given and route, prescriptions, significant lab abnormalities, going to OR and other pertinent info. @ - 67 female to the emergency department for evaluation of severe abdominal pain recurrent acute nausea vomiting and diarrhea weakness. Patient symptoms are persistent here in the ER patient will be admitted for symptom management potassium replacement Admitted Undiagnosed new problem with uncertain prognosis? @ -no Drug Therapy requiring intensive monitoring for toxicity (Heparin, Nitro, Insulin, Cardizem)? @ -no Were any procedures done? @ -no Diagnosis/symptom? @ -Abdominal pain, nausea vomiting, hypokalemia Acute, or Chronic, or Acute on Chronic? @ -Acute Uncomplicated (without systemic symptoms) or Complicated (systemic symptoms)? @ -Complicated Side effects of treatment? @ -no Exacerbation, Progression, or Severe Exacerbation? @ -exacerbation Poses a threat to life or bodily function? How? (Chest pain, [place], [place], pneumonia, PE, COPD, DKA, ARF, appy, cholecystitis, CVA, Diverticulitis, Homicidal, Suicidal, threat to staff... and all critical care pts) @ -no Reevaluation #5: 11/30/22 23:37 Differential Abdominal Pain Women: Appendicitis, Cholecystitis, diverticulosis, ischemic bowel, pancreatitis, hepatitis, UTI, gastroenteritis, AAA, incarcerated hernia, bowel obstruction, constipation, inflammatory bowel, hepatitis, peptic ulcer disease, splenic infarction, perforated viscus, vulvitis, ovarian torsion, PID, kidney stone, placenta abruption, this is not meant to be an all-inclusive list - Consultations Consultation #1: Spoke with admitting physicians who agree to admit this patient Medical Decision Making - Medical Decision Making 67 female to the emergency department for evaluation of severe abdominal pain recurrent acute nausea vomiting and diarrhea weakness. Patient symptoms are persistent here in the ER patient will be admitted for symptom management potassium replacement - Lab Data Result diagrams: 12/02/22 05:02 12/02/22 05:02 Lab Results 11/30/22 11/30/22 12/01/22 Range/Units 00:48 00:48 02:19 WBC 6.6 (3.8-10.6) k/uL RBC 3.96 (3.80-5.40) m/uL Hgb 11.8 (11.4-16.0) gm/dL Hct 34.3 (34.0-46.0) % MCV 86.7 (80.0-100.0) fL MCH 29.8 (25.0-35.0) pg MCHC 34.3 (31.0-37.0) g/dL RDW 14.2 (11.5-15.5) % Plt Count 228 (150-450) k/uL MPV 7.5 Neutrophils % 62 % Lymphocytes % 24 % Monocytes % 11 % Eosinophils % 2 % Basophils % 0 % Neutrophils # 4.1 (1.3-7.7) k/uL Lymphocytes # 1.6 (1.0-4.8) k/uL Monocytes # 0.7 (0-1.0) k/uL Eosinophils # 0.1 (0-0.7) k/uL Basophils # 0.0 (0-0.2) k/uL Sodium 142 (137-145) mmol/L Potassium 3.1 L (3.5-5.1) mmol/L Chloride 116 H (98-107) mmol/L Carbon Dioxide 16 L (22-30) mmol/L Anion Gap 10 mmol/L BUN 9 (7-17) mg/dL Creatinine 0.54 (0.52-1.04) mg/dL Est GFR (CKD-EPI)AfAm >90 (>60 ml/min/1.73 sqM) Est GFR (CKD-EPI)NonAf >90 (>60 ml/min/1.73 sqM) Glucose 87 (74-99) mg/dL Calcium 8.5 (8.4-10.2) mg/dL Total Bilirubin 0.3 (0.2-1.3) mg/dL AST 32 (14-36) U/L ALT 33 (4-34) U/L Alkaline Phosphatase 148 H (38-126) U/L Total Protein 6.3 (6.3-8.2) g/dL Albumin 3.5 (3.5-5.0) g/dL Amylase 46 (30-110) U/L Lipase 75 (23-300) U/L Urine Color Yellow Urine Appearance Clear (Clear) Urine pH 6.0 (5.0-8.0) Ur Specific Schlater 1.025 (1.001-1.035) Urine Protein Negative (Negative) Urine Glucose (UA) Negative (Negative) Urine Ketones Negative (Negative) Urine Blood Negative (Negative) Urine Nitrite Positive H (Negative) Urine Bilirubin Negative (Negative) Urine Urobilinogen 0.2 (<2.0) mg/dL Ur Leukocyte Esterase Moderate (Negative) Urine RBC 2 (0-5) /hpf Urine WBC 15 H (0-5) /hpf Urine Bacteria Many H (None) /hpf - Radiology Data Radiology results: report reviewed (X-ray chest and KUB is negative for acute disease), image reviewed Disposition Clinical Impression: Hypokalemia, Vomiting, Short intestine syndrome, Abdominal pain, Weakness Disposition: ADMITTED IP TO THIS [facility] Condition: Stable Is patient prescribed a controlled substance at d/c from ED?: No Time of Disposition: 02:20
[2022-11-30] MEDS ORDERED: MORPHINE SULFATE 4 MG/ML SYRINGE IVP STA (23:39)
[2022-12-01 01:21] LABS: ALT 33 U/L (4-34); AST 32 U/L (14-36); African American GFR (CKD) >90 (>60 ml/min/1.73 sqM); Albumin 3.5 g/dL (3.5-5.0); Alkaline Phosphatase 148 U/L (38-126); Amylase 46 U/L (30-110); Anion Gap 10 mmol/L; Basophils % (A) 0 %; Blood Urea Nitrogen 9 mg/dL (7-17); Calcium 8.5 mg/dL (8.4-10.2); Carbon Dioxide 16 mmol/L (22-30); Chloride 116 mmol/L (98-107); Eosinophils # (A) 0.1 k/uL (0-0.7); Eosinophils % (A) 2 %; Glucose 87 mg/dL (74-99); HCT 34.3 % (34.0-46.0); HGB 11.8 gm/dL (11.4-16.0); Lipase 75 U/L (23-300); Lymphocytes # (A) 1.6 k/uL (1.0-4.8); Lymphocytes % (A) 24 %; MCH 29.8 pg (25.0-35.0); MCHC 34.3 g/dL (31.0-37.0); MCV 86.7 fL (80.0-100.0); Mean Platelet Volume 7.5; Monocytes # (A) 0.7 k/uL (0-1.0); Monocytes % (A) 11 %; Neutrophils # (A) 4.1 k/uL (1.3-7.7); Neutrophils % (A) 62 %; Non-African American GFR(CKD) >90 (>60 ml/min/1.73 sqM); Platelet Count 228 k/uL (150-450); Potassium 3.1 mmol/L (3.5-5.1); RBC 3.96 m/uL (3.80-5.40); RDW 14.2 % (11.5-15.5); Sodium 142 mmol/L (137-145); Total Bilirubin 0.3 mg/dL (0.2-1.3); Total Protein 6.3 g/dL (6.3-8.2); WBC 6.6 k/uL (3.8-10.6)
--- NOTE | 2022-12-01 02:13 | XR ---
EXAM: XR Chest, 1 View CLINICAL HISTORY: ITS.REASON XR Reason: pain TECHNIQUE: Frontal view of the chest. COMPARISON: No relevant prior studies available. FINDINGS: Lungs: No consolidation or mass. Pleural space: No acute findings Heart: cardiomegaly. Bones/joints: No acute findings. IMPRESSION: No acute cardiopulmonary process.
--- NOTE | 2022-12-01 02:14 | XR ---
EXAM: XR Abdomen, 1 View CLINICAL HISTORY: ITS.REASON XR Reason: abdominal pain TECHNIQUE: Frontal supine view of the abdomen/pelvis. COMPARISON: No relevant prior studies available. FINDINGS: Gastrointestinal tract: No dilation. Bones/joints: No acute fracture. No dislocation. Prior lumbar and sacral fusion IMPRESSION: No acute findings.
[2022-12-01] MEDS ORDERED: NALOXONE 0.4 MG/ML 1 ML VIAL IV PRN (02:25)
[2022-12-01 02:54] LABS: Appearance,Urine Clear (Clear); Bilirubin,Urine Negative (Negative); Color,Urine Yellow; Glucose,Urine (UA) Negative (Negative); Ketones,Urine Negative (Negative); Protein,Urine Negative (Negative); Specific Gravity,Urine 1.025 (1.001-1.035)
[2022-12-01 02:55] LABS: Blood,Urine Negative (Negative); Leukocyte Esterase,Urine Moderate (Negative); Nitrite,Urine Positive (Negative); Urobilinogen,Urine 0.2 mg/dL (<2.0)
[2022-12-01 03:03] LABS: Bacteria,Urine Many /hpf; RBC,Urine 2 /hpf (0-5); WBC,Urine 15 /hpf (0-5)
[2022-12-01] MEDS: MORPHINE SULFATE 4 MG/ML SYRINGE IV PRN ×2 (03:39→07:33)
[2022-12-01] MEDS: SODIUM CHLORIDE 0.9% 1,000 ML IV SCH ×2 (03:39→09:49)
[2022-12-01] MEDS ORDERED: POTASSIUM CHLORIDE ER 20 MEQ TAB.ER PO STA (03:53)
[2022-12-01] MEDS: PANTOPRAZOLE 40 MG/10 ML VIAL IV SCH (10:00)
--- NOTE | 2022-12-01 11:17 | P.GSCN ---
History of Present Illness Consult date: 12/01/22 Reason for Consult: Abdominal pain History of present illness: This a 14-year-old female with extensive surgical history. Patient has a histor y of chronic abdominal pain. She is requiring outpatient narcotic pain medication therapy. Patient has history of multiple exploratory laparotomies with small bowel resection. Patient has a very short small bowel. Patient states that she had worsening pain and presented to the emergency room because of this. She states she feels better today. Past Medical History Past Medical History: Cancer, Heart Failure, COPD, CVA/TIA, Deep Vein Thrombosis (DVT), GERD/Reflux, Hearing Disorder / Deafness, Hypertension, Myocardial Infarction ([place]), Neurologic Disorder, Osteoarthritis (OA), Seizure Disorder Additional Past Medical History / Comment(s): History of bilateral breast cancer, ovarian cancer, uterine cancer, history of CVA (no residual) back in 1982, history of irregular heart rate possibly atrial fibrillation many years back, history of petit mal seizures (none in decades), coronary artery disease, previous [place], history of DVT, multiple bowel obstruction requiring previous abdominal surgeries and bowel resection. She also has renal cysts, SSS, CHF, short gut syndrome, hx. of aoustic neuroma left ear Last Myocardial Infarction Date:: 1997 History of Any Multi-Drug Resistant Organisms: MRSA Year Discovered:: 2003 MDRO Source:: lt hip Past Surgical History: Appendectomy, Back Surgery, Bowel Resection, Breast Surgery, Cholecystectomy, Hernia Repair, Hysterectomy, Orthopedic Surgery, Tonsillectomy Additional Past Surgical History / Comment(s): earnest mastectomy, oopherectomy back surgery x5 with last sx cage in back, bowel resection x5-6, earnest. carpal tunnel, lt rotator cuff repair Past Anesthesia/Blood Transfusion Reactions: Previous Problems w/ Anesthesia Additional Past Anesthesia/Blood Transfusion Reaction / Comm: experiences anxiety prior to surgery and agitiation. b/p elevates during surgery. woke up during surgery. difficult IV start Past Psychological History: Anxiety, Depression Smoking Status: Never smoker Past Alcohol Use History: None Reported Past Drug Use History: None Reported Additional Drug Use History / Comment(s): CBD pill daily stopped 07/30/18 - Past Family History Mother Family Medical History: Cancer Additional Family Medical History / Comment(s): Lung cancer. Father Family Medical History: Cancer Additional Family Medical History / Comment(s): "Cancer all over body." Brother(s) Family Medical History: Cancer Additional Family Medical History / Comment(s): Lung cancer with metastasis. Medications and Allergies Home Medications Medication Instructions Recorded Confirmed Type Metoprolol Succinate (ER) [Toprol 100 mg PO DAILY 08/01/18 12/01/22 History XL] Pantoprazole Sodium [Protonix] 80 mg PO DAILY 08/01/18 12/01/22 History diazePAM [Valium] 5 mg VAGINAL BID PRN 11/24/19 12/01/22 History Diphenoxylate HCl/Atropine 1 tab PO Q6H PRN 03/31/20 12/01/22 History [Lomotil 2.5-0.025 mg Tablet] Cyanocobalamin [Vitamin B-12 1,000 mcg SQ SA 03/01/22 12/01/22 History Injection] Dicyclomine [Bentyl] 10 mg PO TID PRN 03/01/22 12/01/22 History lisinopriL [Zestril] 10 mg PO DAILY 04/17/22 12/01/22 History Albuterol Inhaler [Ventolin Hfa 2 puff INHALATION RT-QID PRN 07/04/22 12/01/22 History Inhaler] Ibuprofen [Motrin] 800 mg PO Q8HR PRN 07/04/22 12/01/22 History Atorvastatin [Lipitor] 40 mg PO HS #90 tab 07/06/22 12/01/22 Rx Brivaracetam [Briviact] 50 mg PO BID 09/13/22 12/01/22 History Lidocaine/Menthol 1 patch TRANSDERM DAILY PRN 09/13/22 12/01/22 History [Lidocaine-Menthol 4%-1% Patch] Aspirin EC [Ecotrin] 325 mg PO DAILY 11/30/22 12/01/22 History Cyclobenzaprine [Flexeril] 10 mg PO TID PRN 11/30/22 12/01/22 History Furosemide [Lasix] 20 mg PO DAILY 11/30/22 12/01/22 History HYDROcodone/APAP 7.5-325MG [[place] 1 tab PO Q6H PRN 11/30/22 12/01/22 History 7.5-325] Ibuprofen [Motrin] 400 mg PO Q6HR PRN #30 tab 11/30/22 12/01/22 Rx Nitroglycerin Sl Tabs [Nitrostat] 0.4 mg SL Q5M PRN 11/30/22 12/01/22 History Ondansetron Odt [Zofran Odt] 4 mg PO Q8HR PRN #10 tab 11/30/22 12/01/22 Rx Potassium Chloride ER [K-Dur 20] 40 meq PO DAILY 11/30/22 12/01/22 History SUMAtriptan succinate [Imitrex] 100 mg PO BID PRN 11/30/22 12/01/22 History Allergies Allergy/AdvReac Type Severity Reaction Status Date / Time Penicillins Allergy Anaphylaxis Verified 12/01/22 06:48 phenobarbital Allergy Rash/Hives Verified 12/01/22 06:48 phenytoin [From Dilantin] Allergy Anaphylaxis Verified 12/01/22 06:48 carbamazepine [From Tegretol] AdvReac increases Verified 12/01/22 06:48 seizures Surgical - Exam Vital Signs Temp Pulse Resp BP Pulse Ox 97 F L 76 16 140/83 99 11/30/22 23:06 11/30/22 23:06 11/30/22 23:06 11/30/22 23:06 11/30/22 23:06 - General well developed, well nourished, no distress - Eyes PERRL - ENT normal pinna - Neck no masses - Respiratory normal expansion - Cardiovascular Rhythm: regular - Abdomen Mental tenderness throughout there is no rebound or guarding. Abdomen: soft Results - Labs 11/30/22 00:48 11/30/22 00:48 Abnormal Lab Results - Last 24 Hours (Table) 11/30/22 12/01/22 Range/Units 00:48 02:19 Potassium 3.1 L (3.5-5.1) mmol/L Chloride 116 H (98-107) mmol/L Carbon Dioxide 16 L (22-30) mmol/L Alkaline Phosphatase 148 H (38-126) U/L Urine Nitrite Positive H (Negative) Urine WBC 15 H (0-5) /hpf Urine Bacteria Many H (None) /hpf Diabetes panel 11/30/22 Range/Units 00:48 Sodium 142 (137-145) mmol/L Potassium 3.1 L (3.5-5.1) mmol/L Chloride 116 H (98-107) mmol/L Carbon Dioxide 16 L (22-30) mmol/L BUN 9 (7-17) mg/dL Creatinine 0.54 (0.52-1.04) mg/dL Glucose 87 (74-99) mg/dL Calcium 8.5 (8.4-10.2) mg/dL AST 32 (14-36) U/L ALT 33 (4-34) U/L Alkaline Phosphatase 148 H (38-126) U/L Total Protein 6.3 (6.3-8.2) g/dL Albumin 3.5 (3.5-5.0) g/dL Calcium panel 11/30/22 Range/Units 00:48 Calcium 8.5 (8.4-10.2) mg/dL Albumin 3.5 (3.5-5.0) g/dL Pituitary panel 11/30/22 Range/Units 00:48 Sodium 142 (137-145) mmol/L Potassium 3.1 L (3.5-5.1) mmol/L Chloride 116 H (98-107) mmol/L Carbon Dioxide 16 L (22-30) mmol/L BUN 9 (7-17) mg/dL Creatinine 0.54 (0.52-1.04) mg/dL Glucose 87 (74-99) mg/dL Calcium 8.5 (8.4-10.2) mg/dL Adrenal panel 11/30/22 Range/Units 00:48 Sodium 142 (137-145) mmol/L Potassium 3.1 L (3.5-5.1) mmol/L Chloride 116 H (98-107) mmol/L Carbon Dioxide 16 L (22-30) mmol/L BUN 9 (7-17) mg/dL Creatinine 0.54 (0.52-1.04) mg/dL Glucose 87 (74-99) mg/dL Calcium 8.5 (8.4-10.2) mg/dL Total Bilirubin 0.3 (0.2-1.3) mg/dL AST 32 (14-36) U/L ALT 33 (4-34) U/L Alkaline Phosphatase 148 H (38-126) U/L Total Protein 6.3 (6.3-8.2) g/dL Albumin 3.5 (3.5-5.0) g/dL Assessment and Plan Assessment: Chronic abdominal pain. Patient will be treated symptomatically. There is no surgical intervention planned.
[2022-12-01] MEDS: HYDROcodone/APAP 7.5-325MG 1 EACH TAB PO PRN ×2 (11:47→17:58)
[2022-12-01] MEDS: LACTATED RINGERS 1,000 ML IV SCH ×2 (11:47→22:31)
[2022-12-01] MEDS ORDERED: DIPHENOX-ATROP 2.5-0.025 MG 1 EACH TAB PO PRN (12:06)
[2022-12-01] MEDS ORDERED: DICYCLOMINE 10 MG CAP PO PRN (12:06)
[2022-12-01] MEDS ORDERED: NON FORMULARY DRUG (Lidocaine/Menthol [Lidocaine-Menthol 4%-1% Patch] 1 EACH Patch) TRANSDERM PRN (12:06)
[2022-12-01] MEDS ORDERED: CYCLOBENZAPRINE 10 MG TAB PO PRN (12:06)
[2022-12-01] MEDS ORDERED: ALBUTEROL NEBULIZED 2.5 MG/3 ML INHALATION PRN (12:06)
[2022-12-01] MEDS ORDERED: IBUPROFEN 400 MG TAB PO PRN (12:06)
[2022-12-01] MEDS ORDERED: NITROGLYCERIN SL TABS 0.4 MG TAB SUBLINGUAL PRN (12:06)
--- NOTE | 2022-12-01 12:24 | P.HPIM ---
History of Present Illness 67 [id number] pleasant female with multiple abdominal surgeries, etc. laparotomies bowel resection, with only small part of part of small bowel left, has a chronic diarrhea nausea vomiting came in with the same symptoms and patient was started on Protonix was started on symptomatic treatment patient is clinically dehydrated for which patient was started on IV fluids. Patient does have history of can start failure chronic diastolic dysfunction presently not in acute exacerbation patient takes 20 mg of Lasix which is being temporally held at this time patient is complaining of lower quadrant abdominal pain.. REVIEW OF SYSTEMS: CONSTITUTIONAL: No fever, no malaise, no fatigue. HEENT: No recent visual problems or hearing problems. Denied any sore throat. CARDIOVASCULAR: No chest pain, orthopnea, PND, no palpitations, no syncope. PULMONARY: No shortness of breath, no cough, no hemoptysis. GASTROINTESTINAL: No diarrhea, no nausea, no vomiting, no abdominal pain. NEUROLOGICAL: No headaches, no weakness, no numbness. HEMATOLOGICAL: Denies any bleeding or petechiae. GENITOURINARY: Denies any burning micturition, frequency, or urgency. MUSCULOSKELETAL/RHEUMATOLOGICAL: Denies any joint pain, swelling, or any muscle pain. ENDOCRINE: Denies any polyuria or polydipsia. The rest of the 14-point review of systems is negative. PHYSICAL EXAMINATION: GENERAL: The patient is alert and oriented x3, not in any acute distress. Well developed, well nourished. HEENT: Pupils are round and equally reacting to light. EOMI. No scleral icterus. No conjunctival pallor. Normocephalic, atraumatic. No pharyngeal erythema. No thyromegaly. CARDIOVASCULAR: S1 and S2 present. No murmurs, rubs, or gallops. PULMONARY: Chest is clear to auscultation, no wheezing or crackles. ABDOMEN: Soft, mild abdominal tenderness nondistended, normoactive bowel sounds. No palpable organomegaly. MUSCULOSKELETAL: No joint swelling or deformity. EXTREMITIES: No cyanosis, clubbing, or pedal edema. NEUROLOGICAL: Gross neurological examination did not reveal any focal deficits. SKIN: No rashes. Assessment and plan 1 nausea vomiting diarrhea: Improving at this time patient still has abdominal pain we'll use a [place], Bentyl for abdominal pain, use symptomatic treatment -Hypokalemia secondary to nausea vomiting diarrhea potassium replaced patient will be started on Protonix as well as --Coronary artery disease and she-history of DVT in the past -COPD without any acute exacerbation -Congestive heart failure chronic diastolic dysfunction without any acute exacerbation x-ray Hypertension -Seizure disorder DVT prophylaxis: Early ambulation Past Medical History Past Medical History: Cancer, Heart Failure, COPD, CVA/TIA, Deep Vein Thrombosis (DVT), GERD/Reflux, Hearing Disorder / Deafness, Hypertension, Myocardial Infarction (NV), Neurologic Disorder, Osteoarthritis (OA), Seizure Disorder Additional Past Medical History / Comment(s): History of bilateral breast cancer, ovarian cancer, uterine cancer, history of CVA (no residual) back in 1982, history of irregular heart rate possibly atrial fibrillation many years back, history of petit mal seizures (none in decades), coronary artery disease, previous NV, history of DVT, multiple bowel obstruction requiring previous abdominal surgeries and bowel resection. She also has renal cysts, SSS, CHF, short gut syndrome, hx. of aoustic neuroma left ear Last Myocardial Infarction Date:: 1997 History of Any Multi-Drug Resistant Organisms: MRSA Date of last positivie culture/infection: 2003 MDRO Source:: lt hip Past Surgical History: Appendectomy, Back Surgery, Bowel Resection, Breast Surgery, Cholecystectomy, Hernia Repair, Hysterectomy, Orthopedic Surgery, Tonsillectomy Additional Past Surgical History / Comment(s): earnest mastectomy, oopherectomy back surgery x5 with last sx cage in back, bowel resection x5-6, earnest. carpal tunnel, lt rotator cuff repair Past Anesthesia/Blood Transfusion Reactions: Previous Problems w/ Anesthesia Additional Past Anesthesia/Blood Transfusion Reaction / Comment(s): experiences anxiety prior to surgery and agitiation. b/p elevates during surgery. woke up during surgery. difficult IV start Past Psychological History: Anxiety, Depression Smoking Status: Never smoker Past Alcohol Use History: None Reported Past Drug Use History: None Reported Additional Drug Use History / Comment(s): CBD pill daily stopped 07/30/18 - Past Family History Mother Family Medical History: Cancer Additional Family Medical History / Comment(s): Lung cancer. Father Family Medical History: Cancer Additional Family Medical History / Comment(s): "Cancer all over body." Brother(s) Family Medical History: Cancer Additional Family Medical History / Comment(s): Lung cancer with metastasis. Medications and Allergies Home Medications Medication Instructions Recorded Confirmed Type Metoprolol Succinate (ER) [Toprol 100 mg PO DAILY 08/01/18 12/01/22 History XL] Pantoprazole Sodium [Protonix] 80 mg PO DAILY 08/01/18 12/01/22 History diazePAM [Valium] 5 mg VAGINAL BID PRN 11/24/19 12/01/22 History Diphenoxylate HCl/Atropine 1 tab PO Q6H PRN 03/31/20 12/01/22 History [Lomotil 2.5-0.025 mg Tablet] Cyanocobalamin [Vitamin B-12 1,000 mcg SQ SA 03/01/22 12/01/22 History Injection] Dicyclomine [Bentyl] 10 mg PO TID PRN 03/01/22 12/01/22 History lisinopriL [Zestril] 10 mg PO DAILY 04/17/22 12/01/22 History Albuterol Inhaler [Ventolin Hfa 2 puff INHALATION RT-QID PRN 07/04/22 12/01/22 History Inhaler] Ibuprofen [Motrin] 800 mg PO Q8HR PRN 07/04/22 12/01/22 History Atorvastatin [Lipitor] 40 mg PO HS #90 tab 07/06/22 12/01/22 Rx Brivaracetam [Briviact] 50 mg PO BID 09/13/22 12/01/22 History Lidocaine/Menthol 1 patch TRANSDERM DAILY PRN 09/13/22 12/01/22 History [Lidocaine-Menthol 4%-1% Patch] Aspirin EC [Ecotrin] 325 mg PO DAILY 11/30/22 12/01/22 History Cyclobenzaprine [Flexeril] 10 mg PO TID PRN 11/30/22 12/01/22 History Furosemide [Lasix] 20 mg PO DAILY 11/30/22 12/01/22 History HYDROcodone/APAP 7.5-325MG [[place] 1 tab PO Q6H PRN 11/30/22 12/01/22 History 7.5-325] Ibuprofen [Motrin] 400 mg PO Q6HR PRN #30 tab 11/30/22 12/01/22 Rx Nitroglycerin Sl Tabs [Nitrostat] 0.4 mg SL Q5M PRN 11/30/22 12/01/22 History Ondansetron Odt [Zofran Odt] 4 mg PO Q8HR PRN #10 tab 11/30/22 12/01/22 Rx Potassium Chloride ER [K-Dur 20] 40 meq PO DAILY 11/30/22 12/01/22 History SUMAtriptan succinate [Imitrex] 100 mg PO BID PRN 11/30/22 12/01/22 History Allergies Allergy/AdvReac Type Severity Reaction Status Date / Time Penicillins Allergy Anaphylaxis Verified 12/01/22 06:48 phenobarbital Allergy Rash/Hives Verified 12/01/22 06:48 phenytoin [From Dilantin] Allergy Anaphylaxis Verified 12/01/22 06:48 carbamazepine [From Tegretol] AdvReac increases Verified 12/01/22 06:48 seizures Physical Exam Vitals: Vital Signs Temp Pulse Pulse Resp BP BP Pulse Ox 12/01/22 07:22 72 18 134/66 98 12/01/22 07:00 97.7 F 79 18 147/75 100 11/30/22 23:06 97 F L 76 16 140/83 99 Intake and Output 11/30/22 12/01/22 12/01/22 22:59 06:59 14:59 Other: Weight 57.606 kg Results CBC & Chem 7: 11/30/22 00:48 11/30/22 00:48 Labs: Abnormal Lab Results - Last 24 Hours (Table) 11/30/22 12/01/22 Range/Units 00:48 02:19 Potassium 3.1 L (3.5-5.1) mmol/L Chloride 116 H (98-107) mmol/L Carbon Dioxide 16 L (22-30) mmol/L Alkaline Phosphatase 148 H (38-126) U/L Urine Nitrite Positive H (Negative) Urine WBC 15 H (0-5) /hpf Urine Bacteria Many H (None) /hpf Thrombosis Risk Factor Assmnt - Choose All That Apply Any of the Below Risk Factors Present?: Yes Each Factor Represents 1 point: Abnormal pulmonary function (COPD) Other Risk Factors: Yes Each Risk Factor Represents 2 Points: Age 61-74 years Each Risk Factor Represents 3 Points: History of DVT/PE Other congenital or acquired thrombophilia - If yes, enter type in comment: No Thrombosis Risk Factor Assessment Total Risk Factor Score: 6 Thrombosis Risk Factor Assessment Level: High Risk
[2022-12-01] MEDS: METOPROLOL SUCCINATE (ER) 100 MG TAB.ER.24H PO SCH (13:02)
[2022-12-01] MEDS: POTASSIUM CHLORIDE 20 MEQ in WATER FOR INJECTION 1 100ML.BAG IVPB SCH ×3 (13:03→18:19)
[2022-12-01] MEDS: SUMAtriptan succinate 50 MG TAB PO PRN (14:29)
[2022-12-01] MEDS: ATORVASTATIN 40 MG TAB PO SCH (21:24)
[2022-12-01] MEDS: NON FORMULARY DRUG (Brivaracetam [Briviact] 50 MG Tablet) PO SCH (22:03)
[2022-12-01] MEDS: ONDANSETRON 4 MG/2 ML VIAL IVP PRN (22:07)
[2022-12-01] MEDS: ALPRAZolam 0.25 MG TAB PO PRN (22:08)
[2022-12-02] MEDS: KETOROLAC 15 MG/ML 1 ML VIAL IVP SCH ×4 (00:18→18:08)
[2022-12-02] MEDS: ONDANSETRON 4 MG/2 ML VIAL IVP PRN ×2 (05:32→20:12)
[2022-12-02] MEDS: LACTATED RINGERS 1,000 ML IV SCH ×2 (05:39→18:09)
[2022-12-02] MEDS: SUMAtriptan succinate 50 MG TAB PO PRN ×2 (05:59→21:03)
[2022-12-02] MEDS: HYDROcodone/APAP 7.5-325MG 1 EACH TAB PO PRN ×3 (06:58→20:12)
[2022-12-02] MEDS: PANTOPRAZOLE 40 MG/10 ML VIAL IV SCH (08:55)
[2022-12-02] MEDS: METOPROLOL SUCCINATE (ER) 100 MG TAB.ER.24H PO SCH (08:55)
[2022-12-02] MEDS: lisinopriL 10 MG TAB PO SCH (08:55)
[2022-12-02 10:05] LABS: Basophils # (A) 0.05 X 10*3/uL (0.00-0.10); Eosinophils # (A) 0.15 X 10*3/uL (0.04-0.35); HCT 32.4 % (37.2-46.3); HGB 10.6 d/dL (12.0-15.0); Lymphocytes # (A) 1.36 X 10*3/uL (0.90-5.00); MCH 28.8 pg (27.0-32.0); MCHC 32.7 d/dL (32.0-37.0); Mean Platelet Volume 10.4 FL (9.5-12.2); Monocytes # (A) 0.46 X 10*3/uL (0.20-1.00); Monocytes % (A) 9.1 %; NRBC Per 100 WBC 0 X 10*3/uL (0.00-0.01); Neutrophils % (A) 59.5 %; Platelet Count 235 X 10*3/uL (140-440); RBC 3.68 X 10*6/uL (4.10-5.20); RDW 14.9 % (11.5-14.5); WBC 5.04 X 10*3/uL (4.50-10.00)
[2022-12-02 10:21] LABS: Magnesium 1.7 mg/dL (1.5-2.4); Phosphorus 2.7 mg/dL (2.4-5.1)
[2022-12-02 10:35] LABS: ALT 35 U/L (8-44); AST 45 U/L (13-35); Albumin 3.3 d/dL (3.8-4.9); Albumin/Globulin Ratio 1.83 Ratio (1.60-3.17); Alkaline Phosphatase 123 U/L (41-126); Blood Urea Nitrogen 6.1 mg/dL (9.0-27.0); Calcium 8.7 mg/dL (8.7-10.3); Carbon Dioxide 16.5 mmol/L (21.6-31.8); Chloride 112 mmol/L (96-109); Globulin 1.8 d/dL (1.6-3.3); Glucose 63 mg/dL (70-110); Potassium 3.6 mmol/L (3.5-5.5); Sodium 141 mmol/L (135-145); Total Bilirubin 0.2 mg/dL (0.3-1.2); Total Protein 5.1 d/dL (6.2-8.2)
[2022-12-02] MEDS: NON FORMULARY DRUG (Brivaracetam [Briviact] 50 MG Tablet) PO SCH ×2 (10:57→21:05)
--- NOTE | 2022-12-02 11:34 | P.PN ---
Progress Note - Text Progress Note Date: 12/02/22 Patient feels better. She has less abdominal pain. On exam vital signs are stable. Abdomen is soft. Patient is improving. Her diet will be advanced as tolerated to regular diet
[2022-12-02] MEDS: ATORVASTATIN 40 MG TAB PO SCH (20:08)
[2022-12-02] MEDS: ALPRAZolam 0.25 MG TAB PO PRN (21:52)
[2022-12-03] MEDS: KETOROLAC 15 MG/ML 1 ML VIAL IVP SCH ×2 (00:32→06:00)
[2022-12-03 01:21] VITALS: RESP 18
[2022-12-03] MEDS: ONDANSETRON 4 MG/2 ML VIAL IVP PRN (02:33)
[2022-12-03] MEDS: HYDROcodone/APAP 7.5-325MG 1 EACH TAB PO PRN ×2 (02:33→08:27)
[2022-12-03] MEDS: LACTATED RINGERS 1,000 ML IV SCH (05:18)
[2022-12-03 07:57] VITALS: BP 154/85; PULSE 64; TEMP 97.7
[2022-12-03] MEDS: METOPROLOL SUCCINATE (ER) 100 MG TAB.ER.24H PO SCH (08:23)
[2022-12-03] MEDS: PANTOPRAZOLE 40 MG/10 ML VIAL IV SCH (08:23)
[2022-12-03] MEDS: lisinopriL 10 MG TAB PO SCH (08:23)
--- NOTE | 2022-12-03 09:35 | P.PN ---
Subjective Progress Note Date: 12/02/22 67 [id number] pleasant female with multiple abdominal surgeries, etc. laparotomies bowel resection, with only small part of part of small bowel left, has a chronic diarrhea nausea vomiting came in with the same symptoms and patient was started on Protonix was started on symptomatic treatment patient is clinically dehydrated for which patient was started on IV fluids. Patient does have history of can start failure chronic diastolic dysfunction presently not in acute exacerbation patient takes 20 mg of Lasix which is being temporally held at this time patient is complaining of lower quadrant abdominal pain.. 12/02/2022 Patient is evaluated today on the medical floor continues to report significant abdominal pain epigastric and radiating down to the Left lower quadrant. Diet has been advanced to regular and pain management will continue. Patient likely can DC home tomorrow if tolerating diet. Potassium has improved up to 3.6 with supplementation. Review of Systems Constitutional: Denied any fatigue denied any fever. Cardio vascular: denied any chest pain, palpitations Gastrointestinal: denied any nausea, vomiting, diarrhea Pulmonary: Denied any shortness of breath cough Neurologic denied any new focal deficits All inpatient medications were reviewed and appropriate changes in these medications as dictated in the interval history and assessment and plan. PHYSICAL EXAMINATION: GENERAL: The patient is alert and oriented x3, not in any acute distress. Well developed, well nourished. HEENT: Pupils are round and equally reacting to light. EOMI. No scleral icterus. No conjunctival pallor. Normocephalic, atraumatic. No pharyngeal erythema. No th yromegaly. CARDIOVASCULAR: S1 and S2 present. No murmurs, rubs, or gallops. PULMONARY: Chest is clear to auscultation, no wheezing or crackles. ABDOMEN: Soft, mild abdominal tenderness nondistended, normoactive bowel sounds. No palpable organomegaly. MUSCULOSKELETAL: No joint swelling or deformity. EXTREMITIES: No cyanosis, clubbing, or pedal edema. NEUROLOGICAL: Gross neurological examination did not reveal any focal deficits. SKIN: No rashes. Assessment and plan 1 nausea vomiting diarrhea: Improving at this time patient still has some abdominal pain not quite back to baseline, we'll use a [place], Bentyl for abdominal pain, use symptomatic treatment -Hx of bowel resection and short gut syndrome likely attributing to symptoms general surgery following and symptoms are improving patients diet is advanced to regular -Hypokalemia secondary to nausea vomiting diarrhea potassium replaced and has improved to 3.6, n/v/d have improved -Coronary artery disease -history of DVT in the past -COPD without any acute exacerbation -Congestive heart failure chronic diastolic dysfunction without any acute exacerbation -Hypertension -Seizure disorder DVT prophylaxis: Early ambulation GI prophylaxis: Protonix Full Code Plan Continue regular diet and potassium supplement. Continue pain management. Further recommendations forthcoming by general surgery likely patient can DC home in the next 24 hours. The impression and plan of care has been dictated by Irlanda Al, Nurse Practitioner as directed. Dr. Ramila MD I have performed a history and physical examination and medical decision making of this patient, discussed the same with the dictator, and agree with the dictators assessment and plan as written, documented as a scribe. Based on total visit time, I have performed more than 50% of this visit. Objective - Vital Signs Vital signs: Vital Signs Temp 98.9 F 12/02/22 14:34 Pulse 75 12/02/22 14:34 Resp 18 12/02/22 14:34 BP 152/77 12/02/22 14:34 Pulse Ox 99 12/02/22 14:34 FiO2 Intake & Output 12/01/22 12/02/22 12/02/22 18:59 06:59 18:59 Intake Total 90 Balance 90 Intake: Oral 90 Other: # Voids 1 1 1 - Labs CBC & Chem 7: 12/02/22 05:02 12/02/22 05:02 Labs: Abnormal Lab Results - Last 24 Hours (Table) 12/02/22 12/02/22 Range/Units 05:02 05:02 RBC 3.68 L (4.10-5.20) X 10*6/uL Hgb 10.6 L (12.0-15.0) d/dL Hct 32.4 L (37.2-46.3) % RDW 14.9 H (11.5-14.5) % Chloride 112 H (96-109) mmol/L Carbon Dioxide 16.5 L (21.6-31.8) mmol/L Anion Gap 12.50 H (4.00-12.00) mmol/L BUN 6.1 L (9.0-27.0) mg/dL Creatinine 0.5 L (0.6-1.5) mg/dL Glucose 63 L (70-110) mg/dL Total Bilirubin 0.2 L (0.3-1.2) mg/dL AST 45 H (13-35) U/L Total Protein 5.1 L (6.2-8.2) d/dL Albumin 3.3 L (3.8-4.9) d/dL Assessment and Plan Time with Patient: Less than 30
[2022-12-03] MEDS: NON FORMULARY DRUG (Brivaracetam [Briviact] 50 MG Tablet) PO SCH (10:15)
--- NOTE | 2022-12-03 10:53 | P.PN ---
Progress Note - Text Progress Note Date: 12/03/22 Patient states he feels better today. She wants to go home. On exam vital signs are stable. Abdomen soft. Resolved abdominal pain. Patient is stable for discharge home from surgical standpoint. We will follow-up in the outpatient setting as needed
--- NOTE | 2022-12-04 15:23 | P.DS ---
Providers Date of admission: 12/01/22 02:25 Attending physician: Ciera Solitario Consults: 12/01/22 02:25 Consult Physician Routine Consulting Provider: Giovani Artis Consult Reason/Comments: known Do you want consulting provider notified?: Yes Primary care physician: Bia May Hospital Course: Final Diagnosis 1 nausea vomiting diarrhea: Improved -Chronic abdominal pain back to baseline -Hx of bowel resection and short gut syndrome likely attributing to symptoms -Hypokalemia secondary to nausea vomiting diarrhea potassium replaced and has improved to 3.6, n/v/d have improved -Coronary artery disease -history of DVT in the past -COPD without any acute exacerbation -Congestive heart failure chronic diastolic dysfunction without any acute exacerbation -Hypertension -Seizure disorder Full Code Discharge Disposition Patient is evaluated today stable for discharge home to continue same home medications. Patient was evaluated by Dr. Artis was cleared patient and patient will see in the office within one week. Continue on regular diet as tolerated and resume home pain medications. Recommend to see PCP Dr. Bia May in 1 to 2 days. Hospital Course This is a 67 year old pleasant female with multiple abdominal surgeries, etc. laparotomies bowel resection, with only small part of small bowel left, has a chronic diarrhea nausea vomiting came in with the same symptoms and patient was started on Protonix was started on symptomatic treatment patient is clinically dehydrated for which patient was started on IV fluids. Patient does have history of congestive failure chronic diastolic dysfunction presently not in acute exacerbation patient takes 20 mg of Lasix which is being temporally held at this time patient is complaining of lower quadrant abdominal pain. Patient received supportive care with IV pain management, antiemetics and bowel rest. She was admitted under medicine with consult placed to Dr Artis. Patient had improved with bowel rest and now tolerating advanced diet. Continues to report abdominal pain however back to baseline and has chronic abdominal pain. Patient to continue all same home medications on discharge. Pt denies chest pain, denies shortness of breath, no dizziness/lightheadedness. She has no nausea or vomiting now. Would like to go home. Lungs are clear S1 S2 auscultated abdomen is soft and nontender. Focal neurological exam is negative. Please see mediation reconciliation for a list of current medication. Thank you for allowing us to participate in the care of this patient. The impression and plan of care has been dictated by Irlanda Al, Nurse Practitioner as directed. Dr. Ramila MD I have performed a history and physical examination and medical decision making of this patient, discussed the same with the dictator, and agree with the dictators assessment and plan as written, documented as a scribe. Based on total visit time, I have performed more than 50% of this visit. Patient Condition at Discharge: Stable Plan - Discharge Summary New Discharge Prescriptions: Continue Pantoprazole Sodium [Protonix] 80 mg PO DAILY Metoprolol Succinate (ER) [Toprol XL] 100 mg PO DAILY diazePAM [Valium] 5 mg VAGINAL BID PRN PRN Reason: Muscle Spasms Diphenoxylate HCl/Atropine [Lomotil 2.5-0.025 mg Tablet] 1 tab PO Q6H PRN PRN Reason: Diarrhea Dicyclomine [Bentyl] 10 mg PO TID PRN PRN Reason: IBS Ibuprofen [Motrin] 800 mg PO Q8HR PRN PRN Reason: Pain Or Fever > 100.5 Atorvastatin [Lipitor] 40 mg PO HS #90 tab Brivaracetam [Briviact] 50 mg PO BID Lidocaine/Menthol [Lidocaine-Menthol 4%-1% Patch] 1 patch TRANSDERM DAILY PRN PRN Reason: Pain SUMAtriptan succinate [Imitrex] 100 mg PO BID PRN PRN Reason: Migraine Headache Potassium Chloride ER [K-Dur 20] 40 meq PO DAILY Ondansetron Odt [Zofran ODT] 4 mg PO Q8HR PRN #10 tab PRN Reason: Nausea Ibuprofen [Motrin] 400 mg PO Q6HR PRN #30 tab PRN Reason: pain Cyanocobalamin [Vitamin B-12 Injection] 1,000 mcg SQ SA lisinopriL [Zestril] 10 mg PO DAILY Albuterol Inhaler [Ventolin Hfa Inhaler] 2 puff INHALATION RT-QID PRN PRN Reason: Shortness Of Breath Furosemide [Lasix] 20 mg PO DAILY HYDROcodone/APAP 7.5-325MG [[place] 7.5-325] 1 tab PO Q6H PRN PRN Reason: Pain Aspirin EC [Ecotrin] 325 mg PO DAILY Nitroglycerin Sl Tabs [Nitrostat] 0.4 mg SL Q5M PRN PRN Reason: Chest Pain Cyclobenzaprine [Flexeril] 10 mg PO TID PRN PRN Reason: Muscle Spasm Discharge Medication List Metoprolol Succinate (ER) [Toprol XL] 100 mg PO DAILY 08/01/18 [History] Pantoprazole Sodium [Protonix] 80 mg PO DAILY 08/01/18 [History] diazePAM [Valium] 5 mg VAGINAL BID PRN 11/24/19 [History] Diphenoxylate HCl/Atropine [Lomotil 2.5-0.025 mg Tablet] 1 tab PO Q6H PRN 03/31/20 [History] Cyanocobalamin [Vitamin B-12 Injection] 1,000 mcg SQ SA 03/01/22 [History] Dicyclomine [Bentyl] 10 mg PO TID PRN 03/01/22 [History] lisinopriL [Zestril] 10 mg PO DAILY 04/17/22 [History] Albuterol Inhaler [Ventolin Hfa Inhaler] 2 puff INHALATION RT-QID PRN 07/04/22 [History] Ibuprofen [Motrin] 800 mg PO Q8HR PRN 07/04/22 [History] Atorvastatin [Lipitor] 40 mg PO HS #90 tab 07/06/22 [Rx] Brivaracetam [Briviact] 50 mg PO BID 09/13/22 [History] Lidocaine/Menthol [Lidocaine-Menthol 4%-1% Patch] 1 patch TRANSDERM DAILY PRN 09/13/22 [History] Aspirin EC [Ecotrin] 325 mg PO DAILY 11/30/22 [History] Cyclobenzaprine [Flexeril] 10 mg PO TID PRN 11/30/22 [History] Furosemide [Lasix] 20 mg PO DAILY 11/30/22 [History] HYDROcodone/APAP 7.5-325MG [[place] 7.5-325] 1 tab PO Q6H PRN 11/30/22 [History] Ibuprofen [Motrin] 400 mg PO Q6HR PRN #30 tab 11/30/22 [Rx] Nitroglycerin Sl Tabs [Nitrostat] 0.4 mg SL Q5M PRN 11/30/22 [History] Ondansetron Odt [Zofran ODT] 4 mg PO Q8HR PRN #10 tab 11/30/22 [Rx] Potassium Chloride ER [K-Dur 20] 40 meq PO DAILY 11/30/22 [History] SUMAtriptan succinate [Imitrex] 100 mg PO BID PRN 11/30/22 [History] Follow up Appointment(s)/Referral(s): Bia May MD [Primary Care Provider] - 1-2 days Giovani Artis MD [STAFF PHYSICIAN] - 1 Week Activity/Diet/Wound Care/Special Instructions: Continue on regular diet as tolerated and resume home pain medications. Follow up with your PCP in 1 to 2 days and follow up with Dr Artis in 1 week Discharge Disposition: HOME SELF-CARE
== END 2022-12-03 11:20 | disposition home or self-care (01) | DRG 392 ==
LOC: EC 23:02 → OBSVTOIN 12-01 02:25 → 6NMEDSUR 12-01 02:25 → UNDODISOB 12-03 11:20
PROVIDERS: ADMIT Hospitalist; ATTEND Hospitalist
DX: K91.2 Postsurgical malabsorption, not elsewhere classified (principal); I50.32 Chronic diastolic (congestive) heart failure; I11.0 Hypertensive heart disease with heart failure; E86.0 Dehydration; G40.909 Epilepsy, unspecified, not intractable, without status epilepticus; J44.9 Chronic obstructive pulmonary disease, unspecified; E87.6 Hypokalemia; G89.29 Other chronic pain; I25.10 Atherosclerotic heart disease of native coronary artery without angina pectoris; I25.2 Old myocardial infarction; F32.A Depression, unspecified; F41.9 Anxiety disorder, unspecified; H91.90 Unspecified hearing loss, unspecified ear; N28.1 Cyst of kidney, acquired; K21.9 Gastro-esophageal reflux disease without esophagitis; M19.90 Unspecified osteoarthritis, unspecified site; Z86.718 Personal history of other venous thrombosis and embolism; Z90.49 Acquired absence of other specified parts of digestive tract; Z79.82 Long term (current) use of aspirin; Z79.899 Other long term (current) drug therapy; Z86.14 Personal history of Methicillin resistant Staphylococcus aureus infection; Z85.3 Personal history of malignant neoplasm of breast; Z85.42 Personal history of malignant neoplasm of other parts of uterus; Z85.43 Personal history of malignant neoplasm of ovary; Z86.73 Personal history of transient ischemic attack (TIA), and cerebral infarction without residual deficits; Z86.018 Personal history of other benign neoplasm; Z88.0 Allergy status to penicillin; Z88.8 Allergy status to other drugs, medicaments and biological substances
CPT/HCPCS: 36415; 71045; 74018; 80053; 81001; 82150; 83690; 83735; 84100; 84132; 85025; 96361; 96374; 96375; 96376; 99285

== ENCOUNTER → 2022-12-27 | Outpatient (CLI) | payer MEDICARE, OTHER ==
[2022-12-27 09:15] VITALS: BP 162/95; PULSE 117; RESP 16; TEMP 98.5
--- NOTE | 2022-12-27 15:10 | P.PAINPG ---
PQRS Measure Charge Sheet Comment: A 67 yr old female with a history of severe and chronic LBP secondary to lumbar DDD and spondylosis with facet arthropathy without myelopathy presents today for medication refills. Pain level is provoked at 7 /10 in intensity, constant, localized in the lumbar spine, throbbing in character w shooting towards the and and lower back. Pain is provoked by climbing stairs and BMs. Pain is alleviated with medications, heat, massage and rest. Will reschedule Hypogastric Plexus block for ultrasound guided approach. Oswestry axial pain score of 31. Interventional pain procedures completed include DENIES Patient is currently on [place] 7.5/325mg #120, Flexeril, Ibu, Lidoderm Patient denies any side effects of the medication(s), denies excessive drowsiness or sleepiness, denies suicidal ideation and reports that the current pain medication is helping to control the pain and improve activities of daily living. Patient denies any motor or sensory deficits. Patient denies any fever or night sweats, denies any change in the bowel movements or urination. Physical Examination: -Constitutional: Cooperative. Not in acute distress . - Neurologic: Cranial nerve II to XII intact. No focal neurological deficits. - Psychatric: Alert & oriented x 3. Matching mood & appropriate affect. Judgment and insight intact. - Musculoskeletal: Cervical spine: Muscle bulk/ tone/ strength in the bilateral upper extremities normal Vertebral body tenderness to palpation over Spurling test positive Distraction test positive Facet loading test positive TTP Thoracic spine Muscle bulk / tone/ strength in the bilateral paraspinal muscles normal Vertebral body tender to palpation over Facet loading test positive TTP Lumbar spine: Motor bulk/ tone/ strength lower extremities , thigh and legs : 5/5 Deep tendon reflexes : Normal Knee Jerk. Normal Ankle Jerk . Vertebral body tenderness to palpation over Lumbar Facet Loading Test positive Straight Leg Raise: positive at 30 degrees right side/ left side Gaenslen's Test positive Sacral spine : Severe tenderness over the Sacroiliac joint: right side / left side Range of motion: Flexion of the lumbar spine <60 degrees Range of motion: Extension of the lumbar spine <20 degrees Gaenslen's Test positive right side / left side Sade test: positive right side / left side Thigh Thrust Test positive right side / left side Sacral Thrust Test positive right side / left side Assessment and plan: Chronic LBP secondary to lumbar DDD, spondylosis with facet arthropathy without myelopathy Recommendation of ultrasound guided hypogastric plexus block re: G89.4 Risks, benefits of procedure discussed and pt verbalized understanding. Protocol for discontinuation/ continuation of medications brittany procedure discussed. Chronic and current use of high-risk medication (Opioids). The patient was counseled about risk of opioid use, psychological risk associated with opioids and was orally counseled to not overuse , divert or sell medications. Pt is to store medication in a safe location. The patient is counseled against driving while using narcotic medicatio ns and also not to use alcohol or any illicit recreational drugs. Patient verbalized understanding that the lack of compliance will result in failure to renew narcotic prescription(s) as well as possible discharge from the clinic Diagnoses, prognosis and treatment options including but not limited to physical therapy, surgical interventions, interventional therapies and medication management including narcotics and adjuvant medication were discussed. All patient questions answered MAPS reviewed and it was appropriate. UDS to be rechecked 12/27/22. Prescription refill for Tramadol 50mg #120 w 1 RF. Opiate/ narcotic agreement signed today 12/27/22. I have spent less than 30 minutes on patient care today. Dr Abebe was available by phone for the evaluation of this patient. The time was used to review the medical records including relevant urine studies and Prescription history (MAPs), review of the available imaging, evaluation and examination of the patient, coordination of care with the medical staff and if applicable referring physicians, as well as creation of the medical record PQRS Narrative: Smoking Status Never smoker Narcotic Agreement Date Signed 07/12/22 Hx Alcohol Use (MH) No Home Medications: Ambulatory Orders Metoprolol Succinate (ER) [Toprol XL] 100 mg PO DAILY 08/01/18 Pantoprazole Sodium [Protonix] 80 mg PO DAILY 08/01/18 diazePAM [Valium] 5 mg VAGINAL BID PRN 11/24/19 Diphenoxylate HCl/Atropine [Lomotil 2.5-0.025 mg Tablet] 1 tab PO Q6H PRN 03/31/20 Cyanocobalamin [Vitamin B-12 Injection] 1,000 mcg SQ SA 03/01/22 Dicyclomine [Bentyl] 10 mg PO TID PRN 03/01/22 lisinopriL [Zestril] 10 mg PO DAILY 04/17/22 Albuterol Inhaler [Ventolin Hfa Inhaler] 2 puff INHALATION RT-QID PRN 07/04/22 Ibuprofen [Motrin] 800 mg PO Q8HR PRN 07/04/22 Atorvastatin [Lipitor] 40 mg PO HS #90 tab 07/06/22 Brivaracetam [Briviact] 50 mg PO BID 09/13/22 Lidocaine/Menthol [Lidocaine-Menthol 4%-1% Patch] 1 patch TRANSDERM DAILY PRN 09/13/22 Aspirin EC [Ecotrin] 325 mg PO DAILY 11/30/22 Furosemide [Lasix] 20 mg PO DAILY 11/30/22 Ibuprofen [Motrin] 400 mg PO Q6HR PRN #30 tab 11/30/22 Nitroglycerin Sl Tabs [Nitrostat] 0.4 mg SL Q5M PRN 11/30/22 Ondansetron Odt [Zofran ODT] 4 mg PO Q8HR PRN #10 tab 11/30/22 Potassium Chloride ER [K-Dur 20] 40 meq PO DAILY 11/30/22 SUMAtriptan succinate [Imitrex] 100 mg PO BID PRN 11/30/22 Cyclobenzaprine [Flexeril] 10 mg PO TID PRN 30 Days #90 tab 12/27/22 HYDROcodone/APAP 5-325MG [[place] 5-325] 1 tab PO Q6HR PRN 30 Days tab 12/27/22 HYDROcodone/APAP 5-325MG [[place] 5-325] 1 tab PO Q6HR PRN 30 Days tab 12/27/22 traMADol HCL 50 mg PO Q6H PRN 30 Days #120 tab 12/27/22 Controlled Substance Measures - Controlled Substance Measures Is patient prescribed a controlled substance at discharge?: Yes When asked, does pt state using other controlled substances?: Yes If prescribed controlled substance>3 days was MAPS reviewed?: Yes
== END ==
LOC: PNWHC3 07:16
PROVIDERS: ATTEND Specialist
DX: M51.36 Other intervertebral disc degeneration, lumbar region (principal); M47.816 Spondylosis without myelopathy or radiculopathy, lumbar region; G89.29 Other chronic pain; Z79.891 Long term (current) use of opiate analgesic; Z51.81 Encounter for therapeutic drug level monitoring; Z88.0 Allergy status to penicillin; Z88.8 Allergy status to other drugs, medicaments and biological substances; Z79.82 Long term (current) use of aspirin
CPT/HCPCS: 80307; 99212

== ENCOUNTER 2023-02-09 05:02 | Emergency (ER) | payer MEDICARE, OTHER ==
[2023-02-09 05:18] VITALS: RESP 18; TEMP 97.7
[2023-02-09] MEDS ORDERED: LORazepam 1 MG TAB PO STA (06:37)
[2023-02-09] MEDS ORDERED: HYDROmorphone 1 MG/ML 1 ML SYRINGE IM STA (06:37)
[2023-02-09] MEDS ORDERED: PROCHLORPERAZINE 5 MG TAB PO STA (06:37)
--- NOTE | 2023-02-09 06:39 | ED ---
Recheck HPI - General Chief Complaint: Recheck/Abnormal Lab/Rx Stated Complaint: Anxiety Time Seen by Provider: 02/09/23 05:57 Source: patient, EMS, RN notes reviewed, old records reviewed Mode of arrival: EMS Limitations: no limitations - History of Present Illness Initial Comments: This is a 68-year-old female to the emergency department for evaluation today. Patient presents today for evaluation regards to headache. Headache with nausea and not feeling well and severe anxiety. Patient believes this is all causing her blood pressure to be elevated. She also admits to not taking about pressure medication today. Patient has testing to do today at the hospital and gets increasingly anxious she has to go through testing. Patient has again current headache which she also believes is contributing to her blood pressure being elevated with a history of anxiety and elevated blood pressure again noncompliant with medication. Patient also has history of chronic pain disease MD Complaint: other (Significant headache) -: hour(s) Returns Today for: persistent/worsening pain related to initial visit Symptoms Since Prior Visit: worsening pain Associated Symptoms: none Treatments Prior to Arrival: Given Pain Meds on - Related Data Home Medications Medication Instructions Recorded Confirmed Metoprolol Succinate (ER) [Toprol 100 mg PO DAILY 08/01/18 02/11/23 XL] Pantoprazole Sodium [Protonix] 80 mg PO DAILY 08/01/18 02/11/23 Diphenoxylate HCl/Atropine 1 tab PO Q6H PRN 03/31/20 02/11/23 [Lomotil 2.5-0.025 mg Tablet] Cyanocobalamin [Vitamin B-12 1,000 mcg SQ SA 03/01/22 02/11/23 Injection] Dicyclomine [Bentyl] 10 mg PO TID PRN 03/01/22 02/11/23 lisinopriL [Zestril] 10 mg PO DAILY 04/17/22 02/11/23 Albuterol Inhaler [Ventolin Hfa 2 puff INHALATION RT-QID PRN 07/04/22 02/11/23 Inhaler] Lidocaine/Menthol 1 patch TRANSDERM DAILY PRN 09/13/22 02/11/23 [Lidocaine-Menthol 4%-1% Patch] Furosemide [Lasix] 20 mg PO DAILY 11/30/22 02/11/23 Nitroglycerin Sl Tabs [Nitrostat] 0.4 mg SL Q5M PRN 11/30/22 02/11/23 Potassium Chloride ER [K-Dur 20] 40 meq PO DAILY 11/30/22 02/11/23 SUMAtriptan succinate [Imitrex] 100 mg PO BID PRN 11/30/22 02/11/23 Fexofenadine HCl [Cynthia Allergy] 180 mg PO DAILY 02/11/23 02/11/23 Ondansetron Odt [Zofran ODT] 8 mg PO Q8HR PRN 02/11/23 02/11/23 Valtoco 1 spray NASAL ONCE PRN 02/11/23 02/11/23 Previous Rx's Medication Instructions Recorded Cyclobenzaprine [Flexeril] 10 mg PO TID PRN 30 Days #90 tab 12/27/22 HYDROcodone/APAP 5-325MG [Sturdivant 1 tab PO Q6HR PRN 30 Days #120 tab 01/11/23 5-325] Acetaminophen Tab [Tylenol] 325 mg PO Q6H PRN #6 tab 02/14/23 Allergies Allergy/AdvReac Type Severity Reaction Status Date / Time Penicillins Allergy Anaphylaxis Verified 02/11/23 16:27 phenobarbital Allergy Rash/Hives Verified 02/11/23 16:27 phenytoin [From Dilantin] Allergy Anaphylaxis Verified 02/11/23 16:27 carbamazepine [From Tegretol] AdvReac increases Verified 02/11/23 16:27 seizures morphine AdvReac Itching Verified 02/11/23 16:27 Review of Systems ROS Statement: Those systems with pertinent positive or pertinent negative responses have been documented in the HPI. ROS Other: All systems not noted in ROS Statement are negative. Past Medical History Past Medical History: Cancer, Heart Failure, COPD, CVA/TIA, Deep Vein Thrombosis (DVT), GERD/Reflux, Hearing Disorder / Deafness, Hypertension, Myocardial Infarction (RI), Neurologic Disorder, Osteoarthritis (OA), Seizure Disorder Additional Past Medical History / Comment(s): History of bilateral breast cancer, ovarian cancer, uterine cancer, history of CVA (no residual) back in 1982, history of irregular heart rate possibly atrial fibrillation many years back, history of petit mal seizures (none in decades), coronary artery disease, previous RI, history of DVT, multiple bowel obstruction requiring previous abdominal surgeries and bowel resection. She also has renal cysts, SSS, CHF, short gut syndrome, hx. of aoustic neuroma left ear Last Myocardial Infarction Date:: 1997 History of Any Multi-Drug Resistant Organisms: MRSA Date of last positivie culture/infection: 2003 MDRO Source:: lt hip Past Surgical History: Appendectomy, Back Surgery, Bowel Resection, Breast Surgery, Cholecystectomy, Hernia Repair, Hysterectomy, Orthopedic Surgery, Tonsillectomy Additional Past Surgical History / Comment(s): earnest mastectomy, oopherectomy back surgery x5 with last sx cage in back, bowel resection x5-6, earnest. carpal tunnel, lt rotator cuff repair Past Anesthesia/Blood Transfusion Reactions: Previous Problems w/ Anesthesia Additional Past Anesthesia/Blood Transfusion Reaction / Comment(s): experiences anxiety prior to surgery and agitiation. b/p elevates during surgery. woke up during surgery. difficult IV start Past Psychological History: Anxiety, Depression Smoking Status: Never smoker Past Alcohol Use History: None Reported Past Drug Use History: None Reported - Past Family History Mother Family Medical History: Cancer Additional Family Medical History / Comment(s): Lung cancer. Father Family Medical History: Cancer Additional Family Medical History / Comment(s): "Cancer all over body." Brother(s) Family Medical History: Cancer Additional Family Medical History / Comment(s): Lung cancer with metastasis. General Exam Limitations: no limitations General appearance: alert, in no apparent distress, anxious Head exam: Present: atraumatic, normocephalic, normal inspection Eye exam: Present: normal appearance, PERRL, EOMI. Absent: scleral icterus, conjunctival injection, periorbital swelling ENT exam: Present: normal exam, mucous membranes moist Neck exam: Present: normal inspection. Absent: tenderness, meningismus, lymphadenopathy Respiratory exam: Present: normal lung sounds bilaterally. Absent: respiratory distress, wheezes, rales, rhonchi, stridor Cardiovascular Exam: Present: normal rhythm, tachycardia, normal heart sounds. Absent: systolic murmur, diastolic murmur, rubs, gallop, clicks GI/Abdominal exam: Present: soft, normal bowel sounds. Absent: distended, tenderness, guarding, rebound, rigid Extremities exam: Present: normal inspection, full ROM, normal capillary refill. Absent: tenderness, pedal edema, joint swelling, calf tenderness Back exam: Present: normal inspection Neurological exam: Present: alert, oriented X3, CN II-XII intact Psychiatric exam: Present: normal affect, normal mood Skin exam: Present: warm, dry, intact, normal color. Absent: rash Course Vital Signs 02/09/23 02/09/23 02/09/23 05:03 06:11 07:35 Temperature 97.7 F Pulse Rate 118 H 110 H Respiratory 18 18 Rate Blood Pressure 182/114 180/97 155/124 O2 Sat by Pulse 96 95 Oximetry 02/09/23 08:59 Temperature Pulse Rate 98 Respiratory 18 Rate Blood Pressure 174/88 O2 Sat by Pulse 96 Oximetry - Reevaluation(s) Reevaluation #1: 02/09/23 07:20 Medical record is reviewed Reevaluation #2: 02/09/23 07:20 Patient's pain is well improved Reevaluation #3: 02/09/23 07:20 Patient informed results and questions answered Reevaluation #4: 02/09/23 07:20 Was pt. sent in by a medical professional or institution (, PA, [employer]PERVISOR, urgent care, hospital, or fpc...) When possible be specific @ -no Did you speak to anyone other than the patient for history (EMS, parent, family, police, friend...)? What history was obtained from this source @ -no Did you review nursing and triage notes (agree or disagree)? Why? @ -agree Are old charts reviewed (outside hosp., previous admission, EMS record, old EKG, old radiological studies, urgent care reports/EKG's, fpc records)? Report findings @ -yes Differential Diagnosis (chest pain, altered mental status, abdominal pain women, abdominal pain men, vaginal bleeding, weakness, fever, dyspnea, syncope, headache, dizziness, GI bleed, back pain, seizure, CVA, palpatations, mental health, musculoskeletal)? @ -prior EKG interpreted by me (3pts min.). @ -yes X-rays interpreted by me (1pt min.). @ -no CT interpreted by me (1pt min.). @ -yes U/S interpreted by me (1pt. min.). @ -no What testing was considered but not performed or refused? (CT, X-rays, U/S, labs)? Why? @ -none What meds were considered but not given or refused? Why? @ -none Did you discuss the management of the patient with other professionals (stef haley i.e. , PA, [employer]OR, lab, RT, psych nurse, licensed social worker, medical authorization specialist, teacher, electrical engineering drafting officer, shelter case manager)? Give summary @ -no Was smoking cessation discussed for >3mins.? @ -no Was critical care preformed (if so, how long)? @ -no Were there social determinants of health that impacted care today? How? (Homelessness, low income, unemployed, alcoholism, drug addiction, transportation, low edu. Level, literacy, decrease access to med. care, shelter, rehab)? @ -none Was there de-escalation of care discussed even if they declined (Discuss DNR or withdrawal of care, Hospice)? DNR status @ -no What co-morbidities impacted this encounter? (DM, HTN, Smoking, COPD, CAD, Cancer, CVA, ARF, Chemo, Hep., AIDS, mental health diagnosis, sleep apnea, morbid obesity)? @ -none Was patient admitted / discharged? Hospital course, mention meds given and route, prescriptions, significant lab abnormalities, going to OR and other pertinent info. @ - 68 female to the emergency department today for evaluation of headache. Patient has severe headache here in the area with elevated blood pressure. Computed tomography scan of the brain patient feels improved and can be discharged home Discharge Undiagnosed new problem with uncertain prognosis? @ -no Drug Therapy requiring intensive monitoring for toxicity (Heparin, Nitro, Insulin, Cardizem)? @ -no Were any procedures done? @ -no Diagnosis/symptom? @ -Recurrence headache and hypertension Acute, or Chronic, or Acute on Chronic? @ -Acute Uncomplicated (without systemic symptoms) or Complicated (systemic symptoms)? @ -Complicated Side effects of treatment? @ -no Exacerbation, Progression, or Severe Exacerbation? @ -exacerbation Poses a threat to life or bodily function? How? (Chest pain, USA, RI, pneumonia, PE, COPD, DKA, ARF, appy, cholecystitis, CVA, Diverticulitis, Homicidal, Suicidal, threat to staff... and all critical care pts) @ -yes with hypertensive emergency Reevaluation #5: 02/09/23 07:20 Differential Headache: Migraine, tension, cluster, carbon monoxide, central venous thrombosis, pension karma temporal arteritis, acute closure glaucoma, intercranial hemorrhage, masto iditis, sinusitis, head injury, this is not meant to be an all-inclusive list. Medical Decision Making - Medical Decision Making 68 female to the emergency department today for evaluation of headache. Patient has severe headache here in the area with elevated blood pressure. Computed tomography scan of the brain patient feels improved and can be discharged home - EKG Data -: EKG Interpreted by Me (EKG is sinus tachycardia 113 AR 237 QRS 90 QTC 4:15) - Radiology Data Radiology results: report reviewed (CT brain is negative for acute disease), image reviewed Disposition Clinical Impression: Weakness, Headache, Chronic pain, Hypertension Disposition: HOME SELF-CARE Condition: Good Instructions (If sedation given, give patient instructions): Acute Headache (ED), Hypertension (ED) Is patient prescribed a controlled substance at d/c from ED?: No Referrals: Bia May MD [Primary Care Provider] - 1-2 days Time of Disposition: 07:45
--- NOTE | 2023-02-09 07:33 | CT ---
EXAMINATION TYPE: CT brain wo con DATE OF EXAM: 02/09/2023 COMPARISON: 07/06/2022 HISTORY: HEADACHE CT DLP: 1100.[address] of the brain was performed. The ventricles, basal cisterns and sulci overlying the cerebral convexities demonstrate mild enlargem ent. There is no evidence for intracranial hemorrhage or sulcal effacement. There is decreased attenuation about the periventricular white matter and deep white matter of both c erebral hemispheres, compatible with chronic small vessel ischemia. Differential diagnosis does inclu de demyelination. No mass effects are seen.No midline shift. Osseous calvarium is intact. If symptoms persist consider MRI. IMPRESSION: 1. Age related atrophic and chronic small vessel ischemic change without acute intracranial process s een at this time.
[2023-02-09 09:18] VITALS: BP 174/88; PULSE 98
== END 2023-02-09 09:08 | disposition home or self-care (01) ==
LOC: EC 05:02
DX: I11.0 Hypertensive heart disease with heart failure (principal); I50.9 Heart failure, unspecified; G89.29 Other chronic pain; R53.1 Weakness; R00.0 Tachycardia, unspecified; I25.2 Old myocardial infarction; I25.10 Atherosclerotic heart disease of native coronary artery without angina pectoris; J44.9 Chronic obstructive pulmonary disease, unspecified; K21.9 Gastro-esophageal reflux disease without esophagitis; M19.90 Unspecified osteoarthritis, unspecified site; G40.909 Epilepsy, unspecified, not intractable, without status epilepticus; F41.9 Anxiety disorder, unspecified; F32.A Depression, unspecified; Z79.899 Other long term (current) drug therapy; Z88.0 Allergy status to penicillin; Z88.5 Allergy status to narcotic agent; Z88.8 Allergy status to other drugs, medicaments and biological substances; Z86.73 Personal history of transient ischemic attack (TIA), and cerebral infarction without residual deficits; Z90.49 Acquired absence of other specified parts of digestive tract; Z86.718 Personal history of other venous thrombosis and embolism
CPT/HCPCS: 93005; 70450; 99285; 96372; S0183; J1170

== ENCOUNTER 2023-02-11 11:51 | Observation (INO) | payer MEDICARE, OTHER ==
[2023-02-11] MEDS ORDERED: FAMOTIDINE 20 MG/2 ML VIAL IV STA (12:09)
[2023-02-11] MEDS ORDERED: ASPIRIN 81 MG PO STA (12:09)
[2023-02-11] MEDS ORDERED: HYDROmorphone 0.5 MG/0.5 ML SYRINGE IVP STA (12:09)
--- NOTE | 2023-02-11 12:17 | ED ---
General Adult HPI - General Chief complaint: Chest Pain Stated complaint: Chest Pain Time Seen by Provider: 02/11/23 11:54 Source: patient, EMS, RN notes reviewed Mode of arrival: EMS Limitations: no limitations - History of Present Illness Initial comments: Patient is a pleasant 68-year-old female presenting to the emergency department with concerns for chest discomfort. Onset of symptoms was around 3 days ago. Patient does have some discomfort of her sternal lower chest. Patient does have some abdominal discomfort as well. Patient is anxious. Patient states she has not been any well. Patient has had some nausea with dry heaves. Patient states she does feel a bit short of breath as well. Patient does admit to feeling anxious. - Related Data Home Medications Medication Instructions Recorded Confirmed Metoprolol Succinate (ER) [Toprol 100 mg PO DAILY 08/01/18 12/27/22 XL] Pantoprazole Sodium [Protonix] 80 mg PO DAILY 08/01/18 12/27/22 diazePAM [Valium] 5 mg VAGINAL BID PRN 11/24/19 12/27/22 Diphenoxylate HCl/Atropine 1 tab PO Q6H PRN 03/31/20 12/27/22 [Lomotil 2.5-0.025 mg Tablet] Cyanocobalamin [Vitamin B-12 1,000 mcg SQ SA 03/01/22 12/27/22 Injection] Dicyclomine [Bentyl] 10 mg PO TID PRN 03/01/22 12/27/22 lisinopriL [Zestril] 10 mg PO DAILY 04/17/22 12/27/22 Albuterol Inhaler [Ventolin Hfa 2 puff INHALATION RT-QID PRN 07/04/22 12/27/22 Inhaler] Ibuprofen [Motrin] 800 mg PO Q8HR PRN 07/04/22 12/27/22 Brivaracetam [Briviact] 50 mg PO BID 09/13/22 12/27/22 Lidocaine/Menthol 1 patch TRANSDERM DAILY PRN 09/13/22 12/27/22 [Lidocaine-Menthol 4%-1% Patch] Aspirin EC [Ecotrin] 325 mg PO DAILY 11/30/22 12/27/22 Furosemide [Lasix] 20 mg PO DAILY 11/30/22 12/27/22 Nitroglycerin Sl Tabs [Nitrostat] 0.4 mg SL Q5M PRN 11/30/22 12/27/22 Potassium Chloride ER [K-Dur 20] 40 meq PO DAILY 11/30/22 12/27/22 SUMAtriptan succinate [Imitrex] 100 mg PO BID PRN 11/30/22 12/27/22 Previous Rx's Medication Instructions Recorded Atorvastatin [Lipitor] 40 mg PO HS #90 tab 07/06/22 Ibuprofen [Motrin] 400 mg PO Q6HR PRN #30 tab 11/30/22 Ondansetron Odt [Zofran ODT] 4 mg PO Q8HR PRN #10 tab 11/30/22 Cyclobenzaprine [Flexeril] 10 mg PO TID PRN 30 Days #90 tab 12/27/22 HYDROcodone/APAP 5-325MG [[place] 1 tab PO Q6HR PRN 30 Days #120 tab 01/11/23 5-325] HYDROcodone/APAP 5-325MG [[place] 1 tab PO Q6HR PRN 30 Days #120 tab 02/07/23 5-325] Allergies Allergy/AdvReac Type Severity Reaction Status Date / Time Penicillins Allergy Anaphylaxis Verified 02/11/23 12:08 phenobarbital Allergy Rash/Hives Verified 02/11/23 12:08 phenytoin [From Dilantin] Allergy Anaphylaxis Verified 02/11/23 12:08 carbamazepine [From Tegretol] AdvReac increases Verified 02/11/23 12:08 seizures morphine AdvReac Itching Verified 02/11/23 12:08 Review of Systems ROS Statement: Those systems with pertinent positive or pertinent negative responses have been documented in the HPI. ROS Other: All systems not noted in ROS Statement are negative. Constitutional: Denies: fever Eyes: Denies: eye pain ENT: Denies: ear pain Respiratory: Reports: as per HPI Cardiovascular: Reports: as per HPI, chest pain Endocrine: Denies: fatigue Gastrointestinal: Reports: as per HPI, abdominal pain, nausea Musculoskeletal: Denies: back pain Past Medical History Past Medical History: Cancer, Heart Failure, COPD, CVA/TIA, Deep Vein Thrombosis (DVT), GERD/Reflux, Hearing Disorder / Deafness, Hypertension, Myocardial Infarction ([place]), Neurologic Disorder, Osteoarthritis (OA), Seizure Disorder Additional Past Medical History / Comment(s): History of bilateral breast cancer, ovarian cancer, uterine cancer, history of CVA (no residual) back in 1982, history of irregular heart rate possibly atrial fibrillation many years back, history of petit mal seizures (none in decades), coronary artery disease, previous [place], history of DVT, multiple bowel obstruction requiring previous abdominal surgeries and bowel resection. She also has renal cysts, SSS, CHF, short gut syndrome, hx. of aoustic neuroma left ear Last Myocardial Infarction Date:: 1997 History of Any Multi-Drug Resistant Organisms: MRSA Date of last positivie culture/infection: 2003 MDRO Source:: lt hip Past Surgical History: Appendectomy, Back Surgery, Bowel Resection, Breast Surgery, Cholecystectomy, Hernia Repair, Hysterectomy, Orthopedic Surgery, Tonsillectomy Additional Past Surgical History / Comment(s): earnest mastectomy, oopherectomy back surgery x5 with last sx cage in back, bowel resection x5-6, earnest. carpal tunnel, lt rotator cuff repair Past Anesthesia/Blood Transfusion Reactions: Previous Problems w/ Anesthesia Additional Past Anesthesia/Blood Transfusion Reaction / Comment(s): experiences anxiety prior to surgery and agitiation. b/p elevates during surgery. woke up during surgery. difficult IV start Past Psychological History: Anxiety, Depression Smoking Status: Never smoker Past Alcohol Use History: None Reported Past Drug Use History: None Reported - Past Family History Mother Family Medical History: Cancer Additional Family Medical History / Comment(s): Lung cancer. Father Family Medical History: Cancer Additional Family Medical History / Comment(s): "Cancer all over body." Brother(s) Family Medical History: Cancer Additional Family Medical History / Comment(s): Lung cancer with metastasis. General Exam Limitations: no limitations General appearance: alert, anxious Head exam: Present: normocephalic Eye exam: Present: normal appearance Neck exam: Present: normal inspection Respiratory exam: Present: normal lung sounds bilaterally Cardiovascular Exam: Present: regular rate, normal rhythm Expanded Peripheral pulses: 2+: Radial (R), Radial (L), Dorsalis Pedis (R), Dorsalis Pedis (L) GI/Abdominal exam: Present: soft, tenderness (Patient does have mild to moderate epigastric tenderness). Absent: distended, guarding, rebound, rigid, pulsatile mass Extremities exam: Present: normal inspection Neurological exam: Present: alert Psychiatric exam: Present: anxious Skin exam: Present: normal color Course Vital Signs 02/11/23 11:55 Temperature 98.5 F Pulse Rate 99 Respiratory 22 Rate Blood Pressure 122/84 O2 Sat by Pulse 99 Oximetry EKG Findings - EKG Results: EKG: interpreted by SHERLY, sinus rhythm, normal axis, normal QRS, normal ST/T Medical Decision Making - Medical Decision Making Was pt. sent in by a medical professional or institution (, [facility], [facility], urgent care, hospital, or group home...) When possible be specific @ -No Did you speak to anyone other than the patient for history (EMS, parent, family, police, friend...)? What history was obtained from this source @ -No Did you review nursing and triage notes (agree or disagree)? Why? @ -I reviewed and agree with nursing and triage notes Were old charts reviewed (outside hosp., previous admission, EMS record, old EKG, old radiological studies, urgent care reports/EKG's, group home records)? Report findings @ -No old charts were reviewed Differential Diagnosis (chest pain, altered mental status, abdominal pain women, abdominal pain men, vaginal bleeding, weakness, fever, dyspnea, syncope, headache, dizziness, GI bleed, back pain, seizure, CVA, palpatations, mental health, musculoskeletal)? @ -Differential Chest Pain: Stable Angina, Unstable Angina, STEMI, NSTEMI Aortic Dissection, Pneumothorax, Musculoskeletal, Esophageal Spasm GERD, Cholecystitis, Pancreatitis, Zoster, this is not meant to be an all-inclusive list. EKG interpreted by me (3pts min.). @ -As above X-rays interpreted by me (1pt min.). @ -Chest x-ray shows no acute process CT interpreted by me (1pt min.). @ -Report reviewed U/S interpreted by me (1pt. min.). @ -None done What testing was considered but not performed or refused? (CT, X-rays, U/S, labs)? Why? @ -None What meds were considered but not given or refused? Why? @ -None Did you discuss the management of the patient with other professionals (professionals i.e. [facility] Montiel, [facility], lab, RT, psych nurse, social media content manager, information engineer, teacher, transit authority police officer, community case manager)? Give summary @ -Case was discussed with Dr. lawler with [facility], who will admit for Dr. Leblanc Was smoking cessation discussed for >3mins.? @ -No Was critical care preformed (if so, how long)? @ -No Were there social determinants of health that impacted care today? How? (Homelessness, low income, unemployed, alcoholism, drug addiction, transportation, low edu. Level, literacy, decrease access to med. care, fpc, rehab)? @ -No Was there de-escalation of care discussed even if they declined (Discuss DNR or withdrawal of care, Hospice)? DNR status @ -No What co-morbidities impacted this encounter? (DM, HTN, Smoking, COPD, CAD, Cancer, CVA, ARF, Chemo, Hep., AIDS, mental health diagnosis, sleep apnea, morbid obesity)? @ -None Was patient admitted / discharged? Hospital course, mention meds given and route, prescriptions, significant lab abnormalities, going to OR and other pertinent info. @ -Patient reevaluated. Patient updated on results and plan. Patient will be admitted. Orders placed. Cardiology will place a consult Undiagnosed new problem with uncertain prognosis? @ -No Drug Therapy requiring intensive monitoring for toxicity (Heparin, Nitro, Insulin, Cardizem)? @ -No Were any procedures done? @ -No Diagnosis/symptom? @ -Chest pain Acute, or Chronic, or Acute on Chronic? @ -Acute Uncomplicated (without systemic symptoms) or Complicated (systemic symptoms)? @ -default Side effects of treatment? @ -No Exacerbation, Progression, or Severe Exacerbation? @ -No Poses a threat to life or bodily function? How? (Chest pain, [place], [place], pneumonia, PE, COPD, DKA, ARF, appy, cholecystitis, CVA, Diverticulitis, Homicidal, Suicidal, threat to staff... and all critical care pts) @ -No - Lab Data Result diagrams: 02/11/23 12:24 02/11/23 12:24 Lab Results 02/11/23 02/11/23 02/11/23 Range/Units 12:24 12:24 12:24 WBC 11.0 H (3.8-10.6) k/uL RBC 5.93 H (3.80-5.40) m/uL Hgb 17.6 H (11.4-16.0) gm/dL Hct 52.9 H (34.0-46.0) % MCV 89.2 (80.0-100.0) fL MCH 29.6 (25.0-35.0) pg MCHC 33.2 (31.0-37.0) g/dL RDW 13.4 (11.5-15.5) % Plt Count 443 (150-450) k/uL MPV 7.5 Neutrophils % 67 % Lymphocytes % 24 % Monocytes % 6 % Eosinophils % 1 % Basophils % 0 % Neutrophils # 7.4 (1.3-7.7) k/uL Lymphocytes # 2.6 (1.0-4.8) k/uL Monocytes # 0.7 (0-1.0) k/uL Eosinophils # 0.1 (0-0.7) k/uL Basophils # 0.1 (0-0.2) k/uL PT 10.9 (9.0-12.0) sec INR 1.0 (<1.2) APTT 25.2 (22.0-30.0) sec Sodium 143 (137-145) mmol/L Potassium 3.4 L (3.5-5.1) mmol/L Chloride 102 (98-107) mmol/L Carbon Dioxide 21 L (22-30) mmol/L Anion Gap 20 mmol/L BUN 21 H (7-17) mg/dL Creatinine 0.77 (0.52-1.04) mg/dL Est GFR (CKD-EPI)AfAm >90 (>60 ml/min/1.73 sqM) Est GFR (CKD-EPI)NonAf 78 (>60 ml/min/1.73 sqM) Glucose 106 H (74-99) mg/dL Calcium 11.0 H (8.4-10.2) mg/dL Magnesium 2.0 (1.6-2.3) mg/dL Total Bilirubin 1.2 (0.2-1.3) mg/dL AST 48 H (14-36) U/L ALT 41 H (4-34) U/L Alkaline Phosphatase 171 H (38-126) U/L Troponin I (0.000-0.034) ng/mL Total Protein 9.4 H (6.3-8.2) g/dL Albumin 5.4 H (3.5-5.0) g/dL Amylase 51 (30-110) U/L Lipase 96 (23-300) U/L 02/11/23 Range/Units 12:24 WBC (3.8-10.6) k/uL RBC (3.80-5.40) m/uL Hgb (11.4-16.0) gm/dL Hct (34.0-46.0) % MCV (80.0-100.0) fL MCH (25.0-35.0) pg MCHC (31.0-37.0) g/dL RDW (11.5-15.5) % Plt Count (150-450) k/uL MPV Neutrophils % % Lymphocytes % % Monocytes % % Eosinophils % % Basophils % % Neutrophils # (1.3-7.7) k/uL Lymphocytes # (1.0-4.8) k/uL Monocytes # (0-1.0) k/uL Eosinophils # (0-0.7) k/uL Basophils # (0-0.2) k/uL PT (9.0-12.0) sec INR (<1.2) APTT (22.0-30.0) sec Sodium (137-145) mmol/L Potassium (3.5-5.1) mmol/L Chloride (98-107) mmol/L Carbon Dioxide (22-30) mmol/L Anion Gap mmol/L BUN (7-17) mg/dL Creatinine (0.52-1.04) mg/dL Est GFR (CKD-EPI)AfAm (>60 ml/min/1.73 sqM) Est GFR (CKD-EPI)NonAf (>60 ml/min/1.73 sqM) Glucose (74-99) mg/dL Calcium (8.4-10.2) mg/dL Magnesium (1.6-2.3) mg/dL Total Bilirubin (0.2-1.3) mg/dL AST (14-36) U/L ALT (4-34) U/L Alkaline Phosphatase (38-126) U/L Troponin I 0.025 (0.000-0.034) ng/mL Total Protein (6.3-8.2) g/dL Albumin (3.5-5.0) g/dL Amylase (30-110) U/L Lipase (23-300) U/L Disposition Clinical Impression: Chest pain Disposition: ADMITTED IP TO THIS HOSP Is patient prescribed a controlled substance at d/c from ED?: No Referrals: Bia May MD [Primary Care Provider] - 1-2 days Time of Disposition: 14:43
[2023-02-11 13:28] LABS: Basophils # (A) 0.1 k/uL (0-0.2); Basophils % (A) 0 %; Eosinophils # (A) 0.1 k/uL (0-0.7); Eosinophils % (A) 1 %; HCT 52.9 % (34.0-46.0); HGB 17.6 gm/dL (11.4-16.0); Lymphocytes # (A) 2.6 k/uL (1.0-4.8); Lymphocytes % (A) 24 %; MCH 29.6 pg (25.0-35.0); MCHC 33.2 g/dL (31.0-37.0); MCV 89.2 fL (80.0-100.0); Mean Platelet Volume 7.5; Monocytes # (A) 0.7 k/uL (0-1.0); Monocytes % (A) 6 %; Neutrophils # (A) 7.4 k/uL (1.3-7.7); Neutrophils % (A) 67 %; Platelet Count 443 k/uL (150-450); RBC 5.93 m/uL (3.80-5.40); RDW 13.4 % (11.5-15.5)
[2023-02-11 13:35] LABS: Partial Thromboplastin Time 25.2 sec (22.0-30.0); Prothrombin Time 10.9 sec (9.0-12.0)
[2023-02-11 13:45] LABS: ALT 41 U/L (4-34); AST 48 U/L (14-36); African American GFR (CKD) >90 (>60 ml/min/1.73 sqM); Albumin 5.4 g/dL (3.5-5.0); Alkaline Phosphatase 171 U/L (38-126); Amylase 51 U/L (30-110); Anion Gap 20 mmol/L; Blood Urea Nitrogen 21 mg/dL (7-17); Carbon Dioxide 21 mmol/L (22-30); Chloride 102 mmol/L (98-107); Glucose 106 mg/dL (74-99); Lipase 96 U/L (23-300); Non-African American GFR(CKD) 78 (>60 ml/min/1.73 sqM); Potassium 3.4 mmol/L (3.5-5.1); Sodium 143 mmol/L (137-145); Total Bilirubin 1.2 mg/dL (0.2-1.3); Total Protein 9.4 g/dL (6.3-8.2)
--- NOTE | 2023-02-11 14:18 | XR ---
EXAMINATION TYPE: XR chest 2V DATE OF EXAM: 02/11/2023 COMPARISON: 06/26/2022 HISTORY: Chest pain TECHNIQUE: Frontal and lateral views of the chest are obtained. FINDINGS: There is no focal air space opacity, pleural effusion, or pneumothorax seen. The cardiac silhouette size is within normal limits. The osseous structures are intact. IMPRESSION: No acute cardiopulmonary process.
--- NOTE | 2023-02-11 14:40 | CT ---
CTA chest and abdomen. HISTORY: Chest and abdominal pain. COMPARISON: 03/01/2022. TECHNIQUE: Multiple axial images were obtained through the chest and abdomen finding uneventful menst ruation nonionic IV contrast. 3-D postprocessing was performed. Exam was performed according to the C TA protocol. CTA CHEST: The lungs are clear consolidative or interstitial density. There is no pleural effusion, pleural thickening or pneumothorax. The great vessels chest are normal there is no mediastinal, hilar or axillary adenopathy. There are b ilateral breast implants. The osseous structures are intact. CTA abdomen: There is diffuse fatty infiltration liver. There are surgical absence of the gallbladder. The common bile duct is dilated 16 to 17 mm but there is no definite evidence of choledocholithiasis or pancreatic head mass. The pancreas is mildly atrophic. There is no focal mass or organomegaly involving the spleen or adren al glands. There are renal cysts but no solid renal mass. There is no hydronephrosis. There is a large 17 - 18 m m nonobstructing left renal calcification. The caliber the abdominal aorta is normal is no retroperitoneal adenopathy or hemorrhage. There are postsurgical changes within the transverse colon. There is no bowel obstruction or inflamma tion. There is no free intraperitoneal air or fluid. There is posterior fusion lumbar spine otherwise the osseous structures and soft tissues unremarkable . IMPRESSION: 1. No significant abnormality within the chest. 2. 17 -18 mm nonobstructing left renal calcification 3. Dilated common bile duct without evidence of pancreatic head mass or choledocholithiasis. There ar e surgical absence of gallbladder. 4. Diffuse fatty infiltration of the liver. 5. Lumbar spinal fusion and laminectomy.
[2023-02-11] MEDS ORDERED: NITROGLYCERIN SL TABS 0.4 MG TAB SUBLINGUAL PRN (14:44)
[2023-02-11] MEDS ORDERED: LORazepam 2 MG/ML INJ IV STA (14:46)
[2023-02-11] MEDS: NITROGLYCERIN OINT 1 INCH/GM PACKET TOPICAL SCH ×4 (14:55→23:39)
[2023-02-11] MEDS ORDERED: DIPHENOX-ATROP 2.5-0.025 MG 1 EACH TAB PO PRN (18:09)
[2023-02-11] MEDS ORDERED: HYDROcodone/APAP 5-325MG 1 EACH TAB PO PRN (18:09)
[2023-02-11] MEDS ORDERED: CYCLOBENZAPRINE 10 MG TAB PO PRN (18:09)
[2023-02-11] MEDS ORDERED: POTASSIUM CHLORIDE ER 20 MEQ TAB.ER PO STA (18:09)
[2023-02-11] MEDS ORDERED: diazePAM 5 MG TAB PO PRN (18:09)
[2023-02-12] MEDS: NITROGLYCERIN OINT 1 INCH/GM PACKET TOPICAL SCH (05:43)
[2023-02-12] MEDS ORDERED: ASPIRIN 325 MG TAB PO SCH (09:00)
[2023-02-12] MEDS ORDERED: PANTOPRAZOLE 40 MG TABLET PO SCH ×2 (09:00→11:00)
[2023-02-12] MEDS ORDERED: ONDANSETRON 4 MG/2 ML VIAL IVP STA (10:16)
--- NOTE | 2023-02-12 10:17 | P.CRDCN ---
History of Present Illness History of present illness: HISTORY OF PRESENT ILLNESS: This is a 68-year-old female with a past medical history significant for seizure disorder, hypertension, breast cancer, ovarian cancer, and multiple bowel surgeries. Patient follows in the office with Dr. Dobbs. We have been asked to see the patient in consultation for chest pain. Patient examined at the bedside. Patient states she presented to the hospital for chief complaint of abdominal pain and chest pain. She reports left upper quadrant pain this morning. She still feels as though the abdominal pain is so bad that it is going up and her chest. She denies any shortness of breath. The patient underwent cardiac catheterization in July 2022 revealing no significant CAD. Patient's EKG is nonischemic and troponins are negative 3. REVIEW OF SYSTEMS: At the time of my exam: CONSTITUTIONAL: Denies fever or chills. HEENT: Denies blurred vision, vision changes, or eye pain. Denies hemoptysis CARDIOVASCULAR: Denies chest pain. Denies orthopnea. Denies PND. Denies palpitations RESPIRATORY: Denies shortness of breath. GASTROINTESTINAL: + abdominal pain. Denies nausea or vomiting. HEMATOLOGIC: Denies bleeding disorders. GENITOURINARY: Denies any blood in urine. SKIN: Denies pruitis. Denies rash. PHYSICAL EXAM: VITAL SIGNS: Reviewed. GENERAL: Well-developed in no acute distress. HEENT: Head is normocephalic. Pupils are equal, round. Sclerae anicteric. Mucous membranes of the mouth are moist. Neck supple. No JVD or thyromegaly LUNGS: Respirations even and unlabored. Lungs essentially clear to auscultation bilaterally. HEART: Regular rate and rhythm. S1 and S2 heard. ABDOMEN: Soft. Nondistended. + tenderness with palpation EXTREMITIES: Normal range of motion. No clubbing or cyanosis. Peripheral pulses intact. No lower extremity edema NEUROLOGIC: Awake and alert. Oriented x 3. ASSESSMENT: Chest pain Status post cardiac catheterization revealing no significant coronary artery disease, July 2022 Abdominal pain with multiple bowel surgeries in the past Hypertension Hyperlipidemia History of seizure disorder PLAN: An acute coronary been has been ruled out Consult general surgery for evaluation as patient's symptoms are noncardiac in nature We will sign off. Please reconsult if needed. Nurse practitioner note has been reviewed by physician. Signing provider agrees with the documented findings, assessment, and plan of care. Past Medical History Past Medical History: Cancer, Heart Failure, COPD, CVA/TIA, Deep Vein Thrombosis (DVT), GERD/Reflux, Hearing Disorder / Deafness, Hypertension, Myocardial Infarction ([place]), Neurologic Disorder, Osteoarthritis ([place]), Seizure Disorder Additional Past Medical History / Comment(s): History of bilateral breast cancer, ovarian cancer, uterine cancer, history of CVA (no residual) back in 1982, history of irregular heart rate possibly atrial fibrillation many years back, history of petit mal seizures (none in decades), coronary artery disease, previous [place], history of DVT, multiple bowel obstruction requiring previous abdominal surgeries and bowel resection. She also has renal cysts, SSS, CHF, short gut syndrome, hx. of aoustic neuroma left ear Last Myocardial Infarction Date:: 1997 History of Any Multi-Drug Resistant Organisms: MRSA Date of last positivie culture/infection: 2003 MDRO Source:: lt hip Past Surgical History: Appendectomy, Back Surgery, Bowel Resection, Breast Surgery, Cholecystectomy, Hernia Repair, Hysterectomy, Orthopedic Surgery, Tonsillectomy Additional Past Surgical History / Comment(s): earnest mastectomy, oopherectomy back surgery x5 with last sx cage in back, bowel resection x5-6, earnest. carpal tunnel, lt rotator cuff repair Past Anesthesia/Blood Transfusion Reactions: Previous Problems w/ Anesthesia Additional Past Anesthesia/Blood Transfusion Reaction / Comment(s): experiences anxiety prior to surgery and agitiation. b/p elevates during surgery. woke up during surgery. difficult IV start Past Psychological History: Anxiety, Depression Smoking Status: Never smoker Past Alcohol Use History: None Reported Past Drug Use History: None Reported - Past Family History Mother Family Medical History: Cancer Additional Family Medical History / Comment(s): Lung cancer. Father Family Medical History: Cancer Additional Family Medical History / Comment(s): "Cancer all over body." Brother(s) Family Medical History: Cancer Additional Family Medical History / Comment(s): Lung cancer with metastasis. Medications and Allergies Home Medications Medication Instructions Recorded Confirmed Type Metoprolol Succinate (ER) [Toprol 100 mg PO DAILY 08/01/18 02/11/23 History XL] Pantoprazole Sodium [Protonix] 80 mg PO DAILY 08/01/18 02/11/23 History diazePAM [Valium] 5 mg VAGINAL BID PRN 11/24/19 02/11/23 History Diphenoxylate HCl/Atropine 1 tab PO Q6H PRN 03/31/20 02/11/23 History [Lomotil 2.5-0.025 mg Tablet] Cyanocobalamin [Vitamin B-12 1,000 mcg SQ SA 03/01/22 02/11/23 History Injection] Dicyclomine [Bentyl] 10 mg PO TID PRN 03/01/22 02/11/23 History lisinopriL [Zestril] 10 mg PO DAILY 04/17/22 02/11/23 History Albuterol Inhaler [Ventolin Hfa 2 puff INHALATION RT-QID PRN 07/04/22 02/11/23 History Inhaler] Lidocaine/Menthol 1 patch TRANSDERM DAILY PRN 09/13/22 02/11/23 History [Lidocaine-Menthol 4%-1% Patch] Furosemide [Lasix] 20 mg PO DAILY 11/30/22 02/11/23 History Nitroglycerin Sl Tabs [Nitrostat] 0.4 mg SL Q5M PRN 11/30/22 02/11/23 History Potassium Chloride ER [K-Dur 20] 40 meq PO DAILY 11/30/22 02/11/23 History SUMAtriptan succinate [Imitrex] 100 mg PO BID PRN 11/30/22 02/11/23 History Cyclobenzaprine [Flexeril] 10 mg PO TID PRN 30 Days #90 tab 12/27/22 02/11/23 Rx HYDROcodone/APAP 5-325MG [[place] 1 tab PO Q6HR PRN 30 Days #120 tab 01/11/23 02/11/23 Rx 5-325] Cephalexin [Keflex] 500 mg PO Q12HR 02/11/23 02/11/23 History Fexofenadine HCl [Cynthia Allergy] 180 mg PO DAILY 02/11/23 02/11/23 History Ibuprofen [Motrin] 600 mg PO Q8HR PRN 02/11/23 02/11/23 History Ondansetron Odt [Zofran Odt] 8 mg PO Q8HR PRN 02/11/23 02/11/23 History Valtoco 1 spray NASAL ONCE PRN 02/11/23 02/11/23 History Allergies Allergy/AdvReac Type Severity Reaction Status Date / Time Penicillins Allergy Anaphylaxis Verified 02/11/23 16:27 phenobarbital Allergy Rash/Hives Verified 02/11/23 16:27 phenytoin [From Dilantin] Allergy Anaphylaxis Verified 02/11/23 16:27 carbamazepine [From Tegretol] AdvReac increases Verified 02/11/23 16:27 seizures morphine AdvReac Itching Verified 02/11/23 16:27 Physical Exam Vitals: Vital Signs Temp Pulse Pulse Resp BP BP Pulse Ox 02/12/23 08:30 97.9 F 116 H 22 125/89 98 02/12/23 08:00 118 H 18 139/79 97 02/12/23 06:00 86 14 155/93 95 02/12/23 05:00 103 H 16 147/102 95 02/12/23 04:00 82 16 101/67 95 02/12/23 03:11 75 16 101/67 95 02/11/23 23:10 92 16 119/85 97 02/11/23 20:00 77 16 131/77 100 02/11/23 19:00 81 18 117/77 100 02/11/23 14:58 91 20 138/76 98 02/11/23 11:55 98.5 F 99 22 122/84 99 Results 02/11/23 12:24 02/11/23 12:24 Cardiac Enzymes 02/11/23 02/11/23 02/11/23 Range/Units 12:24 12:24 15:40 AST 48 H (14-36) U/L Troponin I 0.025 0.012 (0.000-0.034) ng/mL 02/11/23 Range/Units 17:31 AST (14-36) U/L Troponin I <0.012 (0.000-0.034) ng/mL Coagulation 02/11/23 Range/Units 12:24 PT 10.9 (9.0-12.0) sec APTT 25.2 (22.0-30.0) sec CBC 02/11/23 Range/Units 12:24 WBC 11.0 H (3.8-10.6) k/uL RBC 5.93 H (3.80-5.40) m/uL Hgb 17.6 H (11.4-16.0) gm/dL Hct 52.9 H (34.0-46.0) % Plt Count 443 (150-450) k/uL Comprehensive Metabolic Panel 02/11/23 Range/Units 12:24 Sodium 143 (137-145) mmol/L Potassium 3.4 L (3.5-5.1) mmol/L Chloride 102 (98-107) mmol/L Carbon Dioxide 21 L (22-30) mmol/L BUN 21 H (7-17) mg/dL Creatinine 0.77 (0.52-1.04) mg/dL Glucose 106 H (74-99) mg/dL Calcium 11.0 H (8.4-10.2) mg/dL AST 48 H (14-36) U/L ALT 41 H (4-34) U/L Alkaline Phosphatase 171 H (38-126) U/L Total Protein 9.4 H (6.3-8.2) g/dL Albumin 5.4 H (3.5-5.0) g/dL Current Medications Generic Name Dose Route Start Last Admin Trade Name Freq PRN Reason Stop Dose Admin Hydrocodone Bitart/Acetaminophen 1 each 02/11/23 18:09 Hydrocodone/Apap 5-325mg 1 Each Tab PO Q6HR PRN Pain Albuterol Sulfate 2.5 mg 02/11/23 18:09 Albuterol Nebulized 2.5 Mg/3 Ml INHALATION RT-QID PRN Shortness Of Breath Cyclobenzaprine HCl 10 mg 02/11/23 18:09 Cyclobenzaprine 10 Mg Tab PO TID PRN Muscle Spasm Diazepam 5 mg 02/11/23 18:09 Diazepam 5 Mg Tab PO BID PRN Muscle Spasms Dicyclomine HCl 10 mg 02/11/23 18:09 Dicyclomine 10 Mg Cap PO TID PRN IBS Diphenoxylate HCl/Atropine 1 each 02/11/23 18:09 Diphenox-Atrop 2.5-0.025 Mg 1 Each Tab PO Q6H PRN Diarrhea Furosemide 20 mg 02/12/23 09:00 Furosemide 20 Mg Tab PO DAILY [facility] Lisinopril 10 mg 02/12/23 09:00 Lisinopril 10 Mg Tab PO DAILY [facility] Loratadine 10 mg 02/12/23 09:00 Loratadine 10 Mg Tab PO DAILY [facility] Metoprolol Succinate 100 mg 02/12/23 09:00 Metoprolol Succinate (Er) 100 Mg Tab.Er.24h PO DAILY [facility] Nitroglycerin 0.4 mg 02/11/23 14:44 Nitroglycerin Sl Tabs 0.4 Mg Tab SUBLINGUAL Q5M PRN Chest Pain Pantoprazole Sodium 80 mg 02/12/23 09:00 Pantoprazole 40 Mg Tablet PO DAILY [facility] 02/11/23 12:24 02/11/23 12:24
--- NOTE | 2023-02-12 11:02 | US ---
EXAMINATION TYPE: US abdomen limited DATE OF EXAM: 02/12/2023 COMPARISON: 02/11/23 CT CLINICAL INDICATION: Female, 68 years old with history of Dilated CBD; TECHNIQUE: Multiple sonographic images of the right upper quadrant are obtained. FINDINGS: EXAM MEASUREMENTS: Liver Length: 14.8 cm CBD: 1.3 cm Right Kidney: 9.0 x 4.4 x 4.0 cm TETRYL BLENDER OPERATOR NOTES: Pancreas: Limited visualization Liver: Increased attenuation, decreased visualization of vessels suggestive of fatty infiltrate Gallbladder: Surgically absent CBD: At pancreatic head - CBD measures 1.3 cm; within liver - CBD measures 0.9 cm Right Kidney: wnl IMPRESSION: 1. Mild extrahepatic biliary ductal dilation measuring 1.3 cm slightly dilated postcholecystectomy pa tient. 2. Correlate for hepatocellular disease or hepatic stenosis.
[2023-02-12 11:08] LABS: BUN/Creat Ratio 24.86 Ratio (12.00-20.00); Blood Urea Nitrogen 17.4 mg/dL (9.0-27.0); Calcium 9.7 mg/dL (8.7-10.3); Chloride 104 mmol/L (96-109); Chol/HDL Ratio 3.69 Ratio; Glucose 89 mg/dL (70-110); LDL Cholesterol,Calculated 69.5 mg/dL (0.0-131.0); Sodium 142 mmol/L (135-145)
[2023-02-12] MEDS: SODIUM CHLORIDE 0.9% 1,000 ML IV SCH (11:12)
[2023-02-12 11:19] LABS: HCT 45.4 % (37.2-46.3); HGB 14.2 d/dL (12.0-15.0); MCHC 31.3 d/dL (32.0-37.0); MCV 89.4 FL (80.0-97.0); Mean Platelet Volume 10.7 FL (9.5-12.2); NRBC Per 100 WBC 0 X 10*3/uL (0.00-0.01); Platelet Count 311 X 10*3/uL (140-440); RBC 5.08 X 10*6/uL (4.10-5.20); RDW 13.4 % (11.5-14.5); WBC 8.24 X 10*3/uL (4.50-10.00)
[2023-02-12] MEDS: FUROSEMIDE 20 MG TAB PO SCH (11:32)
[2023-02-12] MEDS: METOPROLOL SUCCINATE (ER) 100 MG TAB.ER.24H PO SCH (11:32)
[2023-02-12] MEDS: lisinopriL 10 MG TAB PO SCH (11:32)
[2023-02-12] MEDS: PANTOPRAZOLE 40 MG/10 ML VIAL IVP SCH (11:32)
[2023-02-12] MEDS: LORATADINE 10 MG TAB PO SCH (11:32)
[2023-02-12] MEDS ORDERED: LACTULOSE 20 GM/30 ML CUP PO ONE (12:45)
--- NOTE | 2023-02-12 16:10 | P.GSCN ---
History of Present Illness Consult date: 02/12/23 History of present illness: CHIEF COMPLAINT: Chest pain and abdominal pain HISTORY OF PRESENT ILLNESS: This is a 68-year-old female who presented with chest pain and left upper quadrant abdominal pain. She reports that she's had the left upper quadrant pain for about 3 days. She has been having small bowel movements. Today's fall bowel movement was hard. She reports having nausea no vomiting. Patient admits to having burning with urination. Medicine service h as ordered urinalysis. Patient does have history of multiple abdominal surgeries. Patient seen by cardiology for chest pain and acute coronary syndrome ruled out. Surgical service was consulted in regards to abdominal pain. Patient does report that her problems have been hard and she feels const ipated. She was initially concern for bowel obstruction. Computed tomography scan showed no evidence of bowel obstruction. Patient's past surgical history does include 5 bowel resections for bowel obstructions, appendectomy and cholecystectomy. PAST MEDICAL HISTORY: Cancer, Heart Failure, COPD, CVA/TIA, Deep Vein Thrombosis (DVT), GERD/Reflux, Hearing Disorder / Deafness, Hypertension, Myocardial Infarction (OH), Neurologic Disorder, Osteoarthritis (OA), Seizure Disorder, History of bilateral breast cancer, ovarian cancer, uterine cancer, history of CVA (no residual) back in 1982, history of irregular heart rate possibly atrial fibrillation many years back, history of petit mal seizures (none in decades), coronary artery disease, previous OH, history of DVT, multiple bowel obstruction requiring previous abdominal surgeries and bowel resection. She also has renal cysts, SSS, CHF, sh ort gut syndrome, hx. of aoustic neuroma left ear PAST SURGICAL HISTORY: Appendectomy, Back Surgery, Bowel Resection, Breast Surgery, Cholecystectomy, Hernia Repair, Hysterectomy, Orthopedic Surgery, Tonsillectomy MEDICATIONS: See below ALLERGIES: See below SOCIAL HISTORY: No illicit drug use. REVIEW OF SYSTEMS: CONSTITUTIONAL: Denies fever or chills. HEENT: Denies blurred vision, vision changes, or eye pain. Denies hemoptysis CARDIOVASCULAR: Denies chest pain or pressure. RESPIRATORY: No shortness of breath. GASTROINTESTINAL: See HPI for pertinent findings HEMATOLOGIC: Denies bleeding disorders. GENITOURINARY: Denies any blood in urine or increased urinary frequency. SKIN: Denies pruitis. Denies rash. PHYSICAL EXAM: VITAL SIGNS: Reviewed GENERAL: Well-developed in no acute distress. ABDOMEN: Soft. Nondistended. Left upper quadrant tenderness NEUROLOGIC: Alert and oriented. Cranial nerves II through XII grossly intact. LABORATORY DATA: WBC 11 down to 8.24 Hgb 17.610-14.2 platelets 311 Na 142 K 4.0 cr 0.7 IMAGING: Chest and abdomen CT reports no significant abnormality with the chest. 17-18 mm nonobstructing left renal calcification. Dilated common bile duct without evidence of pancreatic head mass or choledocholithiasis. Gallbladder surgically absent. Diffuse fatty infiltration of the liver. Lumbar spine fusion and laminectomy. Abdominal ultrasound mild extrahepatic biliary ductal dilation measuring 1.3 cm slightly dilated postcholecystectomy. Correlate for hepatocellular disease or hepatic steatosis ASSESSMENT: 1. Chronic abdominal pain 2. History of short gut 3. History of multiple abdominal surgeries 4. Constipation PLAN: -Lactulose ordered for constipation -Agree with clear liquid diet -Continue supportive care -We'll monitor Thank you for this consultation Physician Knife Setter Grinder Machine note has been reviewed by physician. Signing provider agrees with the documented findings, assessment, and plan of care. Past Medical History Past Medical History: Cancer, Heart Failure, COPD, CVA/TIA, Deep Vein Thrombosis (DVT), GERD/Reflux, Hearing Disorder / Deafness, Hypertension, Myocardial Infarction (OH), Neurologic Disorder, Osteoarthritis (OA), Seizure Disorder Additional Past Medical History / Comment(s): History of bilateral breast cancer, ovarian cancer, uterine cancer, history of CVA (no residual) back in 1982, history of irregular heart rate possibly atrial fibrillation many years back, history of petit mal seizures (none in decades), coronary artery disease, previous OH, history of DVT, multiple bowel obstruction requiring previous abdominal surgeries and bowel resection. She also has renal cysts, SSS, CHF, short gut syndrome, hx. of aoustic neuroma left ear Last Myocardial Infarction Date:: 1997 History of Any Multi-Drug Resistant Organisms: MRSA Year Discovered:: 2003 MDRO Source:: lt hip Past Surgical History: Appendectomy, Back Surgery, Bowel Resection, Breast Surgery, Cholecystectomy, Hernia Repair, Hysterectomy, Orthopedic Surgery, Tonsillectomy Additional Past Surgical History / Comment(s): earnest mastectomy, oopherectomy back surgery x5 with last sx cage in back, bowel resection x5-6, earnest. carpal tunnel, lt rotator cuff repair Past Anesthesia/Blood Transfusion Reactions: Previous Problems w/ Anesthesia Additional Past Anesthesia/Blood Transfusion Reaction / Comm: experiences anxiety prior to surgery and agitiation. b/p elevates during surgery. woke up during surgery. difficult IV start Past Psychological History: Anxiety, Depression Smoking Status: Never smoker Past Alcohol Use History: None Reported Past Drug Use History: None Reported - Past Family History Mother Family Medical History: Cancer Additional Family Medical History / Comment(s): Lung cancer. Father Family Medical History: Cancer Additional Family Medical History / Comment(s): "Cancer all over body." Brother(s) Family Medical History: Cancer Additional Family Medical History / Comment(s): Lung cancer with metastasis. Medications and Allergies Home Medications Medication Instructions Recorded Confirmed Type Metoprolol Succinate (ER) [Toprol 100 mg PO DAILY 08/01/18 02/11/23 History XL] Pantoprazole Sodium [Protonix] 80 mg PO DAILY 08/01/18 02/11/23 History diazePAM [Valium] 5 mg VAGINAL BID PRN 11/24/19 02/11/23 History Diphenoxylate HCl/Atropine 1 tab PO Q6H PRN 03/31/20 02/11/23 History [Lomotil 2.5-0.025 mg Tablet] Cyanocobalamin [Vitamin B-12 1,000 mcg SQ SA 03/01/22 02/11/23 History Injection] Dicyclomine [Bentyl] 10 mg PO TID PRN 03/01/22 02/11/23 History lisinopriL [Zestril] 10 mg PO DAILY 04/17/22 02/11/23 History Albuterol Inhaler [Ventolin Hfa 2 puff INHALATION RT-QID PRN 07/04/22 02/11/23 History Inhaler] Lidocaine/Menthol 1 patch TRANSDERM DAILY PRN 09/13/22 02/11/23 History [Lidocaine-Menthol 4%-1% Patch] Furosemide [Lasix] 20 mg PO DAILY 11/30/22 02/11/23 History Nitroglycerin Sl Tabs [Nitrostat] 0.4 mg SL Q5M PRN 11/30/22 02/11/23 History Potassium Chloride ER [K-Dur 20] 40 meq PO DAILY 11/30/22 02/11/23 History SUMAtriptan succinate [Imitrex] 100 mg PO BID PRN 11/30/22 02/11/23 History Cyclobenzaprine [Flexeril] 10 mg PO TID PRN 30 Days #90 tab 12/27/22 02/11/23 Rx HYDROcodone/APAP 5-325MG [[place] 1 tab PO Q6HR PRN 30 Days #120 tab 01/11/23 02/11/23 Rx 5-325] Cephalexin [Keflex] 500 mg PO Q12HR 02/11/23 02/11/23 History Fexofenadine HCl [Cynthia Allergy] 180 mg PO DAILY 02/11/23 02/11/23 History Ibuprofen [Motrin] 600 mg PO Q8HR PRN 02/11/23 02/11/23 History Ondansetron Odt [Zofran Odt] 8 mg PO Q8HR PRN 02/11/23 02/11/23 History Valtoco 1 spray NASAL ONCE PRN 02/11/23 02/11/23 History Allergies Allergy/AdvReac Type Severity Reaction Status Date / Time Penicillins Allergy Anaphylaxis Verified 02/11/23 16:27 phenobarbital Allergy Rash/Hives Verified 02/11/23 16:27 phenytoin [From Dilantin] Allergy Anaphylaxis Verified 02/11/23 16:27 carbamazepine [From Tegretol] AdvReac increases Verified 02/11/23 16:27 seizures morphine AdvReac Itching Verified 02/11/23 16:27 Surgical - Exam Vital Signs Temp Pulse Resp BP Pulse Ox 98.5 F 99 22 122/84 99 02/11/23 11:55 02/11/23 11:55 02/11/23 11:55 02/11/23 11:55 02/11/23 11:55 Results - Labs 02/12/23 05:42 02/12/23 05:42 Abnormal Lab Results - Last 24 Hours (Table) 02/11/23 02/11/23 02/12/23 Range/Units 12:24 12:24 05:42 WBC 11.0 H (3.8-10.6) k/uL RBC 5.93 H (3.80-5.40) m/uL Hgb 17.6 H (11.4-16.0) gm/dL Hct 52.9 H (34.0-46.0) % MCHC 31.3 L (32.0-37.0) d/dL Potassium 3.4 L (3.5-5.1) mmol/L Carbon Dioxide 21 L (22-30) mmol/L Anion Gap (4.00-12.00) mmol/L BUN 21 H (7-17) mg/dL BUN/Creatinine Ratio (12.00-20.00) Ratio Glucose 106 H (74-99) mg/dL Calcium 11.0 H (8.4-10.2) mg/dL AST 48 H (14-36) U/L ALT 41 H (4-34) U/L Alkaline Phosphatase 171 H (38-126) U/L Total Protein 9.4 H (6.3-8.2) g/dL Albumin 5.4 H (3.5-5.0) g/dL HDL Cholesterol (40.00-60.00) mg/dL 02/12/23 Range/Units 05:42 WBC (3.8-10.6) k/uL RBC (3.80-5.40) m/uL Hgb (11.4-16.0) gm/dL Hct (34.0-46.0) % MCHC (32.0-37.0) d/dL Potassium (3.5-5.1) mmol/L Carbon Dioxide (22-30) mmol/L Anion Gap 14.00 H (4.00-12.00) mmol/L BUN (7-17) mg/dL BUN/Creatinine Ratio 24.86 H (12.00-20.00) Ratio Glucose (74-99) mg/dL Calcium (8.4-10.2) mg/dL AST (14-36) U/L ALT (4-34) U/L Alkaline Phosphatase (38-126) U/L Total Protein (6.3-8.2) g/dL Albumin (3.5-5.0) g/dL HDL Cholesterol 35.50 L (40.00-60.00) mg/dL Diabetes panel 02/11/23 02/12/23 Range/Units 12:24 05:42 Sodium 143 142 (137-145) mmol/L Potassium 3.4 L 4.0 (3.5-5.1) mmol/L Chloride 102 104 (98-107) mmol/L Carbon Dioxide 21 L 24.0 (22-30) mmol/L BUN 21 H 17.4 (7-17) mg/dL Creatinine 0.77 0.7 (0.52-1.04) mg/dL Glucose 106 H 89 (74-99) mg/dL Calcium 11.0 H 9.7 (8.4-10.2) mg/dL AST 48 H (14-36) U/L ALT 41 H (4-34) U/L Alkaline Phosphatase 171 H (38-126) U/L Total Protein 9.4 H (6.3-8.2) g/dL Albumin 5.4 H (3.5-5.0) g/dL Triglycerides 130.00 (0.00-149.00) mg/dL HDL Cholesterol 35.50 L (40.00-60.00) mg/dL Calcium panel 02/11/23 02/12/23 Range/Units 12:24 05:42 Calcium 11.0 H 9.7 (8.4-10.2) mg/dL Albumin 5.4 H (3.5-5.0) g/dL Pituitary panel 02/11/23 02/12/23 Range/Units 12:24 05:42 Sodium 143 142 (137-145) mmol/L Potassium 3.4 L 4.0 (3.5-5.1) mmol/L Chloride 102 104 (98-107) mmol/L Carbon Dioxide 21 L 24.0 (22-30) mmol/L BUN 21 H 17.4 (7-17) mg/dL Creatinine 0.77 0.7 (0.52-1.04) mg/dL Glucose 106 H 89 (74-99) mg/dL Calcium 11.0 H 9.7 (8.4-10.2) mg/dL Adrenal panel 02/11/23 02/12/23 Range/Units 12:24 05:42 Sodium 143 142 (137-145) mmol/L Potassium 3.4 L 4.0 (3.5-5.1) mmol/L Chloride 102 104 (98-107) mmol/L Carbon Dioxide 21 L 24.0 (22-30) mmol/L BUN 21 H 17.4 (7-17) mg/dL Creatinine 0.77 0.7 (0.52-1.04) mg/dL Glucose 106 H 89 (74-99) mg/dL Calcium 11.0 H 9.7 (8.4-10.2) mg/dL Total Bilirubin 1.2 (0.2-1.3) mg/dL AST 48 H (14-36) U/L ALT 41 H (4-34) U/L Alkaline Phosphatase 171 H (38-126) U/L Total Protein 9.4 H (6.3-8.2) g/dL Albumin 5.4 H (3.5-5.0) g/dL
[2023-02-12 17:48] LABS: Appearance,Urine Clear (Clear); Bacteria,Urine Occasional /hpf; Bilirubin,Urine Negative (Negative); Blood,Urine Moderate (Negative); Color,Urine Yellow; Glucose,Urine (UA) Negative (Negative); Hyaline Casts,Urine 7 /lpf (0-2); Ketones,Urine 2+ (Negative); Leukocyte Esterase,Urine Negative (Negative); Mucus,Urine Rare /hpf; Nitrite,Urine Negative (Negative); Protein,Urine 1+ (Negative); RBC,Urine 28 /hpf (0-5); Specific Gravity,Urine 1.021 (1.001-1.035); Urobilinogen,Urine <2.0 mg/dL (<2.0); WBC,Urine 9 /hpf (0-5)
--- NOTE | 2023-02-12 22:05 | P.HPIM ---
History of Present Illness H&P Date: 02/12/23 Chief Complaint: Chest pain Patient is a 68-year-old female with a past medical history of bowel resection, multiple abdominal surgeries and chronic abdominal pain, short gut syndrome, COPD, history of CVA/TIA, history of DVT, hypertension, history of NE no PCI, anxiety/depression and multiple previous admissions presents to ER with complaints of abdominal pain / Discomfort. Associated with mild shortness of breath. Patient states that she has been having chest discomfort mainly in the lower sternal region for the past chest pain 3 days. Patient states that she took Valium 10 mg last night which made her jittery. She was also complaining of left-sided abdominal pain and constipation. Patient states that she felt anxious. States that she did not have any involvement for the past 3 days and thought she may have bowel obstruction. Does complain of nausea and dry heaves. No diarrhea. Denies any recent illnesses or sick contacts. EKG on admission showed sinus rhythm. Chest x-ray showed no acute cardiopulmonary process. CTA abdomen pelvis showed no significant abnormality within the chest. 17 to 18 mm nonobstructing left renal calcification. Dilated CBD without evidence of pancreatic head mass or choledocholithiasis. Surgical absence of gallbladder. Diffuse fatty infiltration of the liver. Lumbar spinal fusion and laminectomy. Laboratory showed WBC 11.0 hemoglobin 17.6, sodium 143 potassium 3.4 chloride 102 bicarb is 21 BUN 21, creatinine 0.77 and calcium 11.0 AST 48 ALT 41 alk phos 171, bilirubin 1.2. Troponin x3 negative and amylase and lipase not elevated. Urinalysis showed 1+ protein 2+ ketones and moderate blood negative leukocyte esterase and RBCs 28 WBCs 9 and hyaline casts 7. Patient was seen by urology recently and was recommended cystoscopy but patient refused at that time. She was started on antibiotics, Keflex for urinary tract infection which she has been taking for the past few days at home. Review of Systems Constitutional: Patient denies any fever or chills . No generalized weakness or weight loss. Abdomen: Patient denied nausea vomiting and diarrhea. Patient does complain of left-sided abdominal pain. Cardiovascular: Patient denies any chest pain or short of breath no palpit ations. Respiratory: patient denied any cough or sputum production. No shortness of breath Neurologic: Patient denied any numbness or tingling headache. Musculoskeletal: Patient denies any complaints of joint swelling or deformity. Skin: Negative Psychiatric: Negative Endocrine: No heat or cold intolerance. No recent weight gain. Genitourinary: No dysuria or hematuria. All other 14 point ROS negative except the above Past Medical History Past Medical History: Cancer, Heart Failure, COPD, CVA/TIA, Deep Vein Thrombosis (DVT), GERD/Reflux, Hearing Disorder / Deafness, Hypertension, Myocardial Infarction ([place]), Neurologic Disorder, Osteoarthritis (OA), Seizure Disorder Additional Past Medical History / Comment(s): History of bilateral breast cancer, ovarian cancer, uterine cancer, history of CVA (no residual) back in 1982, history of irregular heart rate possibly atrial fibrillation many years back, history of petit mal seizures (none in decades), coronary artery disease, previous NE, history of DVT, multiple bowel obstruction requiring previous abdominal surgeries and bowel resection. She also has renal cysts, SSS, CHF, short gut syndrome, hx. of aoustic neuroma left ear Last Myocardial Infarction Date:: 1997 History of Any Multi-Drug Resistant Organisms: MRSA Date of last positivie culture/infection: 2003 MDRO Source:: lt hip Past Surgical History: Appendectomy, Back Surgery, Bowel Resection, Breast Surgery, Cholecystectomy, Hernia Repair, Hysterectomy, Orthopedic Surgery, Tonsillectomy Additional Past Surgical History / Comment(s): earnest mastectomy, oopherectomy back surgery x5 with last sx cage in back, bowel resection x5-6, earnest. carpal tunnel, lt rotator cuff repair Past Anesthesia/Blood Transfusion Reactions: Previous Problems w/ Anesthesia Additional Past Anesthesia/Blood Transfusion Reaction / Comment(s): experiences anxiety prior to surgery and agitiation. b/p elevates during surgery. woke up during surgery. difficult IV start Past Psychological History: Anxiety, Depression Smoking Status: Never smoker Past Alcohol Use History: None Reported Past Drug Use History: None Reported Additional Drug Use History / Comment(s): CBD pill daily stopped 07/30/18 - Past Family History Mother Family Medical History: Cancer Additional Family Medical History / Comment(s): Lung cancer. Father Family Medical History: Cancer Additional Family Medical History / Comment(s): "Cancer all over body." Brother(s) Family Medical History: Cancer Additional Family Medical History / Comment(s): Lung cancer with metastasis. Medications and Allergies Home Medications Medication Instructions Recorded Confirmed Type Metoprolol Succinate (ER) [Toprol 100 mg PO DAILY 08/01/18 02/11/23 History XL] Pantoprazole Sodium [Protonix] 80 mg PO DAILY 08/01/18 02/11/23 History diazePAM [Valium] 5 mg VAGINAL BID PRN 11/24/19 02/11/23 History Diphenoxylate HCl/Atropine 1 tab PO Q6H PRN 03/31/20 02/11/23 History [Lomotil 2.5-0.025 mg Tablet] Cyanocobalamin [Vitamin B-12 1,000 mcg SQ SA 03/01/22 02/11/23 History Injection] Dicyclomine [Bentyl] 10 mg PO TID PRN 03/01/22 02/11/23 History lisinopriL [Zestril] 10 mg PO DAILY 04/17/22 02/11/23 History Albuterol Inhaler [Ventolin Hfa 2 puff INHALATION RT-QID PRN 07/04/22 02/11/23 History Inhaler] Lidocaine/Menthol 1 patch TRANSDERM DAILY PRN 09/13/22 02/11/23 History [Lidocaine-Menthol 4%-1% Patch] Furosemide [Lasix] 20 mg PO DAILY 11/30/22 02/11/23 History Nitroglycerin Sl Tabs [Nitrostat] 0.4 mg SL Q5M PRN 11/30/22 02/11/23 History Potassium Chloride ER [K-Dur 20] 40 meq PO DAILY 11/30/22 02/11/23 History SUMAtriptan succinate [Imitrex] 100 mg PO BID PRN 11/30/22 02/11/23 History Cyclobenzaprine [Flexeril] 10 mg PO TID PRN 30 Days #90 tab 12/27/22 02/11/23 Rx HYDROcodone/APAP 5-325MG [[place] 1 tab PO Q6HR PRN 30 Days #120 tab 01/11/2312/27 Rx 5-325] Cephalexin [Keflex] 500 mg PO Q12HR 02/11/23 02/11/23 History Fexofenadine HCl [Cynthia Allergy] 180 mg PO DAILY 02/11/23 02/11/23 History Ibuprofen [Motrin] 600 mg PO Q8HR PRN 02/11/23 02/11/23 History Ondansetron Odt [Zofran Odt] 8 mg PO Q8HR PRN 02/11/23 02/11/23 History Valtoco 1 spray NASAL ONCE PRN 02/11/23 02/11/23 History Allergies Allergy/AdvReac Type Severity Reaction Status Date / Time Penicillins Allergy Anaphylaxis Verified 02/11/23 16:27 phenobarbital Allergy Rash/Hives Verified 02/11/23 16:27 phenytoin [From Dilantin] Allergy Anaphylaxis Verified 02/11/23 16:27 carbamazepine [From Tegretol] AdvReac increases Verified 02/11/23 16:27 seizures morphine AdvReac Itching Verified 02/11/23 16:27 Physical Exam Vitals: Vital Signs Temp Pulse Pulse Resp BP BP Pulse Ox 02/12/23 08:30 97.9 F 116 H 22 125/89 98 02/12/23 08:00 118 H 18 139/79 97 02/12/23 06:00 86 14 155/93 95 02/12/23 05:00 103 H 16 147/102 95 02/12/23 04:00 82 16 101/67 95 02/12/23 03:11 75 16 101/67 95 02/11/23 23:10 92 16 119/85 97 02/11/23 20:00 77 16 131/77 100 02/11/23 19:00 81 18 117/77 100 02/11/23 14:58 91 20 138/76 98 02/11/23 11:55 98.5 F 99 22 122/84 99 Intake and Output 02/11/23 02/12/23 02/12/23 22:59 06:59 14:59 Other: Voiding Method Toilet Weight 58.967 kg PHYSICAL EXAMINATION: Patient is lying in the bed comfortably, no acute distress, awake alert and oriented.. Hearing disorder/deafness. HEENT: Normocephalic. Neck is supple. Pupils reactive. Nostrils clear. Oral cavity is moist. Neck reveals no JVD, carotid bruits, or thyromegaly. CHEST EXAMINATION: Trachea is central. Symmetrical expansion. Lung jeff clear to auscultation and percussion. CARDIAC: Normal S1, S2 with no gallops. No murmurs ABDOMEN: Soft. Bowel sounds normal. Mild left lower quadrant tenderness. No guarding or rigidity. No organomegaly. No abdominal bruits. Extremities: reveal no edema. No clubbing or cyanosis Neurologically awake, alert, oriented x3 with well-coordinated movements. No focal deficits noted Skin: No rash or skin lesions. Psychiatric: Cooperative. Nonsuicidal Musculoskeletal: No joint swelling or deformity. Normal range of motion. Results CBC & Chem 7: 02/12/23 05:42 02/12/23 05:42 Labs: Abnormal Lab Results - Last 24 Hours (Table) 02/11/23 02/11/23 Range/Units 12:24 12:24 WBC 11.0 H (3.8-10.6) k/uL RBC 5.93 H (3.80-5.40) m/uL Hgb 17.6 H (11.4-16.0) gm/dL Hct 52.9 H (34.0-46.0) % Potassium 3.4 L (3.5-5.1) mmol/L Carbon Dioxide 21 L (22-30) mmol/L BUN 21 H (7-17) mg/dL Glucose 106 H (74-99) mg/dL Calcium 11.0 H (8.4-10.2) mg/dL AST 48 H (14-36) U/L ALT 41 H (4-34) U/L Alkaline Phosphatase 171 H (38-126) U/L Total Protein 9.4 H (6.3-8.2) g/dL Albumin 5.4 H (3.5-5.0) g/dL Thrombosis Risk Factor Assmnt - DVT/VTE Prophylaxis DVT/VTE Prophylaxis: Pharmacologic Prophylaxis ordered - Choose All That Apply Each Factor Represents 1 point: Obesity (BMI >25), Varicose veins Each Risk Factor Represents 2 Points: Age 61-74 years Each Risk Factor Represents 3 Points: History of DVT/PE Thrombosis Risk Factor Assessment Total Risk Factor Score: 7 Thrombosis Risk Factor Assessment Level: High Risk Assessment and Plan Assessment: Abdominal pain likely due to constipation along with chronic abdominal pain. Atypical chest pain. Ruled out ACS. Dilated CBD without evidence of choledocholithiasis or pancreatic head mass postcholecystectomy changes. Elevated liver enzymes likely due to hepatocellular disease. Nonobstructing left renal calculi measuring 17 to 18 mm Short gut syndrome Prior history of multiple abdominal surgeries History of NE status postcardiac catheterization no PCI History of DVT History of CVA/TIA Osteoarthritis Prior history of back surgery GERD Hearing results/deafness Anxiety/depression DVT prophylaxis with heparin subcu. Plan: Patient will be continued on stool softeners and bowel regimen. Start back on clear liquid diet advance as tolerated. Plan ACS rule out. Continue gentle IV hydration. Continue with pain management and home medications. Replace electrolytes. Continue PPI and follow-up closely. Time with Patient: Greater than 30
[2023-02-13] MEDS: SODIUM CHLORIDE 0.9% 1,000 ML IV SCH ×3 (00:06→19:34)
[2023-02-13 06:25] LABS: ALT 26 U/L (4-34); AST 28 U/L (14-36); African American GFR (CKD) >90 (>60 ml/min/1.73 sqM); Albumin 3.8 g/dL (3.5-5.0); Albumin/Globulin Ratio 1.4; Alkaline Phosphatase 118 U/L (38-126); Anion Gap 12 mmol/L; Blood Urea Nitrogen 13 mg/dL (7-17); Calcium 9.3 mg/dL (8.4-10.2); Carbon Dioxide 21 mmol/L (22-30); Chloride 107 mmol/L (98-107); Globulin 2.8 g/dL; Glucose 101 mg/dL (74-99); Non-African American GFR(CKD) >90 (>60 ml/min/1.73 sqM); Potassium 3.1 mmol/L (3.5-5.1); Sodium 140 mmol/L (137-145); Total Bilirubin 0.8 mg/dL (0.2-1.3); Total Protein 6.6 g/dL (6.3-8.2)
[2023-02-13 07:45] LABS: Basophils % (A) 0 %; Eosinophils # (A) 0.1 k/uL (0-0.7); Eosinophils % (A) 1 %; Lymphocytes # (A) 1.4 k/uL (1.0-4.8); Lymphocytes % (A) 19 %; MCHC 33.5 g/dL (31.0-37.0); MCV 89.4 fL (80.0-100.0); Mean Platelet Volume 8.9; Monocytes # (A) 0.6 k/uL (0-1.0); Monocytes % (A) 8 %; Neutrophils # (A) 5.4 k/uL (1.3-7.7); Neutrophils % (A) 70 %; Platelet Count 285 k/uL (150-450); RBC 4.81 m/uL (3.80-5.40); RDW 13.3 % (11.5-15.5); WBC 7.7 k/uL (3.8-10.6)
[2023-02-13 07:47] LABS: HGB 14.4 gm/dL (11.4-16.0)
[2023-02-13] MEDS: METOPROLOL SUCCINATE (ER) 100 MG TAB.ER.24H PO SCH (09:03)
[2023-02-13] MEDS: LORATADINE 10 MG TAB PO SCH (09:03)
[2023-02-13] MEDS: lisinopriL 10 MG TAB PO SCH (09:03)
[2023-02-13] MEDS: FUROSEMIDE 20 MG TAB PO SCH (09:03)
[2023-02-13] MEDS: PANTOPRAZOLE 40 MG/10 ML VIAL IVP SCH (09:05)
[2023-02-13] MEDS ORDERED: LACTULOSE 20 GM/30 ML CUP PO ONE (09:32)
[2023-02-13] MEDS ORDERED: POTASSIUM CHLORIDE 20 MEQ in WATER FOR INJECTION 1 100ML.BAG IVPB STA (10:16)
[2023-02-13] MEDS ORDERED: POTASSIUM CHLORIDE ER 20 MEQ TAB.ER PO STA ×2 (10:17→11:21)
--- NOTE | 2023-02-13 14:09 | P.PN ---
Subjective Progress Note Date: 02/13/23 CHIEF COMPLAINT: Abdominal pain HISTORY OF PRESENT ILLNESS: Patient reports her pain is improving. She did have nausea earlier. She has been having some small bowel movements. She is requesting another dose of laxative. She reports that her pain is back to her chronic pain about a 2 or 3 out of 10. Afebrile. WBC 7.7 Hgb 14.4 platelets 285 symptoms 140 potassium is 3.1 PHYSICAL EXAM: VITAL SIGNS: Reviewed. GENERAL: Well-developed in no acute distress. ABDOMEN: Soft. Nondistended. NEUROLOGIC: Alert and oriented. Cranial nerves II through XII grossly intact. ASSESSMENT: 1. Chronic abdominal pain 2. History of short gut 3. History of multiple abdominal surgeries 4. Constipation PLAN: -We'll give it another dose of lactulose for constipation -Advance diet to full liquids -Medicine service replacing potassium Physician Commercial Green Retrofit Architect note has been reviewed by physician. Signing provider agrees with the documented findings, assessment, and plan of care. Objective - Vital Signs Vital signs: Vital Signs Temp 98 F 02/13/23 07:00 Pulse 87 02/13/23 08:00 Resp 18 02/13/23 08:00 BP 126/72 02/13/23 07:00 Pulse Ox 95 02/13/23 07:00 FiO2 Intake & Output 02/12/23 02/13/23 02/13/23 18:59 06:59 18:59 Intake Total 500 120 Balance 500 120 Weight 58.967 kg Intake: Oral 500 120 Other: Voiding Method Toilet Toilet Toilet # Voids 3 # Bowel Movements 2 1 - Labs CBC & Chem 7: 02/13/23 05:56 02/13/23 05:56 Labs: Abnormal Lab Results - Last 24 Hours (Table) 02/12/23 02/13/23 Range/Units 16:15 05:56 Potassium 3.1 L (3.5-5.1) mmol/L Carbon Dioxide 21 L (22-30) mmol/L Creatinine 0.48 L (0.52-1.04) mg/dL Glucose 101 H (74-99) mg/dL Urine Protein 1+ H (Negative) Urine Ketones 2+ H (Negative) Urine Blood Moderate H (Negative) Urine RBC 28 H (0-5) /hpf Urine WBC 9 H (0-5) /hpf Urine Bacteria Occasional H (None) /hpf Hyaline Casts 7 H (0-2) /lpf Urine Mucus Rare H (None) /hpf
[2023-02-13] MEDS: HEPARIN SODIUM,PORCINE 5,000 UNIT/ML 1 ML VIAL SQ SCH (19:32)
[2023-02-13] MEDS: POTASSIUM CHLORIDE ER 20 MEQ TAB.ER PO SCH (19:32)
--- NOTE | 2023-02-14 01:54 | P.PN ---
Subjective Progress Note Date: 02/13/23 Patient is a 68-year-old female with a past medical history of bowel resection, multiple abdominal surgeries and chronic abdominal pain, short gut syndrome, COPD, history of CVA/TIA, history of DVT, hypertension, history of [place] no PCI, anxiety/depression and multiple previous admissions presents to ER with complaints of abdominal pain / Discomfort. Associated with mild shortness of breath. Patient states that she has been having chest discomfort mainly in the lower sternal region for the past chest pain 3 days. Patient states that she took Valium 10 mg last night which made her jittery. She was also complaining of left-sided abdominal pain and constipation. Patient states that she felt anxious. States that she did not have any involvement for the past 3 days and thought she may have bowel obstruction. Does complain of nausea and dry heaves. No diarrhea. Denies any recent illnesses or sick contacts. EKG on admission showed sinus rhythm. Chest x-ray showed no acute cardiopulmonary process. CTA abdomen pelvis showed no significant abnormality within the chest. 17 to 18 mm nonobstructing left renal calcification. Dilated CBD without evidence of pancreatic head mass or choledocholithiasis. Surgical absence of gallbladder. Diffuse fatty infiltration of the liver. Lumbar spinal fusion and laminectomy. Laboratory showed WBC 11.0 hemoglobin 17.6, sodium 143 potassium 3.4 chloride 102 bicarb is 21 BUN 21, creatinine 0.77 and calcium 11.0 AST 48 ALT 41 alk phos 171, bilirubin 1.2. Troponin x3 negative and amylase and lipase not elevated. Urinalysis showed 1+ protein 2+ ketones and moderate blood negative leukocyte esterase and RBCs 28 WBCs 9 and hyaline casts 7. Patient was seen by urology recently and was recommended cystoscopy but patient refused at that time. She was started on antibiotics, Keflex for urinary tract infection which she has been taking for the past few days at home. 02/13/2023 Patient is currently lying in the bed. Awake alert and oriented x3. Abdominal pain is better and patient did have a bowel movement yesterday. No complaints of nausea or vomiting. Denies any dysuria or hematuria. Patient was started on oral diet and advance as tolerated. No complaints of chest pain or shortness of breath. No cough or sputum production. Laboratory data showed potassium level is still low at 3.1 which is being replaced. Patient is also being continued on IV hydration. Current medications reviewed. Objective - Vital Signs Vital signs: Vital Signs Temp 98.2 F 02/13/23 14:09 Pulse 96 02/13/23 14:09 Resp 18 02/13/23 14:09 BP 155/85 02/13/23 14:09 Pulse Ox 99 02/13/23 14:09 FiO2 Intake & Output 02/13/23 02/13/23 02/14/23 06:59 18:59 06:59 Intake Total 360 Balance 360 Intake: Oral 360 Other: Voiding Method Toilet Toilet # Voids 3 2 # Bowel Movements 1 - Exam PHYSICAL EXAMINATION: Patient is lying in the bed comfortably, no acute distress, awake alert and agata ented.. Hearing disorder/deafness. HEENT: Normocephalic. Neck is supple. Pupils reactive. Nostrils clear. Oral cavity is moist. Neck reveals no JVD, carotid bruits, or thyromegaly. CHEST EXAMINATION: Trachea is central. Symmetrical expansion. Lung jeff clear to auscultation and percussion. CARDIAC: Normal S1, S2 with no gallops. No murmurs ABDOMEN: Soft. Bowel sounds normal. Mild left lower quadrant tenderness. No guarding or rigidity. No organomegaly. No abdominal bruits. Extremities: reveal no edema. No clubbing or cyanosis Neurologically awake, alert, oriented x3 with well-coordinated movements. No focal deficits noted Skin: No rash or skin lesions. Psychiatric: Cooperative. Nonsuicidal Musculoskeletal: No joint swelling or deformity. Normal range of motion. - Labs CBC & Chem 7: 02/13/23 05:56 02/13/23 05:56 Labs: Abnormal Lab Results - Last 24 Hours (Table) 02/13/23 Range/Units 05:56 Potassium 3.1 L (3.5-5.1) mmol/L Carbon Dioxide 21 L (22-30) mmol/L Creatinine 0.48 L (0.52-1.04) mg/dL Glucose 101 H (74-99) mg/dL Assessment and Plan Assessment: Abdominal pain likely due to constipation along with chronic abdominal pa in.improving Atypical chest pain. Ruled out ACS. Dilated CBD without evidence of choledocholithiasis or pancreatic head mass postcholecystectomy changes. Elevated liver enzymes likely due to hepatocellular disease. Nonobstructing left renal calculi measuring 17 to 18 mm Short gut syndrome Prior history of multiple abdominal surgeries History of [place] status postcardiac catheterization no PCI History of DVT History of CVA/TIA Osteoarthritis Prior history of back surgery GERD Hearing results/deafness Anxiety/depression DVT prophylaxis with heparin subcu. Plan: Patient was started on full liquid diet and advance as tolerated. Replace potassium. Continue with pain management and home medications. Liver enzymes normalized. Continue with PPI and stool softeners General surgery is on board. Anticipate discharge in the next 24 hours. follow-up closely. Time with Patient: Greater than 30
[2023-02-14] MEDS: METOPROLOL SUCCINATE (ER) 100 MG TAB.ER.24H PO SCH (09:15)
[2023-02-14] MEDS: DICYCLOMINE 10 MG CAP PO PRN ×2 (09:15→20:48)
[2023-02-14] MEDS: POTASSIUM CHLORIDE ER 20 MEQ TAB.ER PO SCH ×2 (09:15→20:22)
[2023-02-14] MEDS: lisinopriL 10 MG TAB PO SCH (09:15)
[2023-02-14] MEDS: FUROSEMIDE 20 MG TAB PO SCH (09:15)
[2023-02-14] MEDS: LORATADINE 10 MG TAB PO SCH (09:16)
[2023-02-14] MEDS: HEPARIN SODIUM,PORCINE 5,000 UNIT/ML 1 ML VIAL SQ SCH ×2 (09:16→20:22)
[2023-02-14] MEDS: PANTOPRAZOLE 40 MG/10 ML VIAL IVP SCH (09:16)
[2023-02-14 09:51] LABS: Magnesium 1.9 mg/dL (1.5-2.4)
[2023-02-14 09:54] LABS: BUN/Creat Ratio 9.71 Ratio (12.00-20.00); Blood Urea Nitrogen 6.8 mg/dL (9.0-27.0); Calcium 9.8 mg/dL (8.7-10.3); Carbon Dioxide 18.4 mmol/L (21.6-31.8); Chloride 112 mmol/L (96-109); Glucose 110 mg/dL (70-110); Potassium 5.1 mmol/L (3.5-5.5); Sodium 144 mmol/L (135-145)
[2023-02-14] MEDS: ALBUTEROL NEBULIZED 2.5 MG/3 ML INHALATION PRN (11:15)
--- NOTE | 2023-02-14 15:23 | P.PN ---
Subjective Progress Note Date: 02/14/23 CHIEF COMPLAINT: Abdominal pain HISTORY OF PRESENT ILLNESS: Patient reports that she is feeling better. She is tolerating diet. She's requesting advancement of diet. She is having bowel movements. She denies any nausea vomiting. He PHYSICAL EXAM: VITAL SIGNS: Reviewed. GENERAL: Well-developed in no acute distress. ABDOMEN: Soft. Nondistended. NEUROLOGIC: Alert and oriented. Cranial nerves II through XII grossly intact. ASSESSMENT: 1. Chronic abdominal pain 2. History of short gut 3. History of multiple abdominal surgeries 4. Constipation PLAN: -Advance diet to regular, heart healthy -Patient can be discharged from surgical standpoint when medically cleared Physician Senior Firewall Engineer note has been reviewed by physician. Signing provider agrees with the documented findings, assessment, and plan of care. Objective - Vital Signs Vital signs: Vital Signs Temp 97.8 F 02/14/23 07:00 Pulse 80 02/14/23 11:25 Resp 16 02/14/23 07:00 BP 146/82 02/14/23 07:00 Pulse Ox 97 02/14/23 07:00 FiO2 Intake & Output 02/13/23 02/14/23 02/14/23 18:59 06:59 18:59 Intake Total 360 Balance 360 Intake: Oral 360 Other: Voiding Method Toilet Toilet # Voids 2 4 - Labs CBC & Chem 7: 02/13/23 05:56 02/14/23 05:42 Labs: Abnormal Lab Results - Last 24 Hours (Table) 02/14/23 Range/Units 05:42 Chloride 112 H (96-109) mmol/L Carbon Dioxide 18.4 L (21.6-31.8) mmol/L Anion Gap 13.60 H (4.00-12.00) mmol/L BUN 6.8 L (9.0-27.0) mg/dL BUN/Creatinine Ratio 9.71 L (12.00-20.00) Ratio
[2023-02-14 18:30] LABS: Appearance,Urine Clear (Clear); Bacteria,Urine Many /hpf; Bilirubin,Urine Negative (Negative); Blood,Urine Trace (Negative); Color,Urine Colorless; Glucose,Urine (UA) Negative (Negative); Ketones,Urine Negative (Negative); Leukocyte Esterase,Urine Small (Negative); Mucus,Urine Rare /hpf; Nitrite,Urine Negative (Negative); Protein,Urine Negative (Negative); RBC,Urine 1 /hpf (0-5); Specific Gravity,Urine 1.005 (1.001-1.035); Squamous Epithelial Cell,Urine <1 /hpf (0-4); Urobilinogen,Urine <2.0 mg/dL (<2.0); WBC,Urine 13 /hpf (0-5)
[2023-02-14] MEDS: SODIUM CHLORIDE 0.9% 1,000 ML IV SCH (20:22)
--- NOTE | 2023-02-14 22:27 | P.PN ---
Subjective Patient is a 68-year-old female with a past medical history of bowel resection, multiple abdominal surgeries and chronic abdominal pain, short gut syndrome, COPD, history of CVA/TIA, history of DVT, hypertension, history of [place] no PCI, anxiety/depression and multiple previous admissions presents to ER with complaints of abdominal pain / Discomfort. Associated with mild shortness of breath. Patient states that she has been having chest discomfort mainly in the lower sternal region for the past chest pain 3 days. Patient states that she took Valium 10 mg last night which made her jittery. She was also complaining of left-sided abdominal pain and constipation. Patient states that she felt anxious. States that she did not have any involvement for the past 3 days and thought she may have bowel obstruction. Does complain of nausea and dry heaves. No diarrhea. Denies any recent illnesses or sick contacts. EKG on admission showed sinus rhythm. Chest x-ray showed no acute cardiopulmonary process. CTA abdomen pelvis showed no significant abnormality within the chest. 17 to 18 mm nonobstructing left renal calcification. Dilated CBD without evidence of pancreatic head mass or choledocholithiasis. Surgical absence of gallbladder. Diffuse fatty infiltration of the liver. Lumbar spinal fusion and laminectomy. Laboratory showed WBC 11.0 hemoglobin 17.6, sodium 143 potassium 3.4 chloride 102 bicarb is 21 BUN 21, creatinine 0.77 and calcium 11.0 AST 48 ALT 41 alk phos 171, bilirubin 1.2. Troponin x3 negative and amylase and lipase not elevated. Urinalysis showed 1+ protein 2+ ketones and moderate blood negative leukocyte esterase and RBCs 28 WBCs 9 and hyaline casts 7. Patient was seen by urology recently and was recommended cystoscopy but patient refused at that time. She was started on antibiotics, Keflex for urinary tract infection which she has been taking for the past few days at home. 02/13/2023 Patient is currently lying in the bed. Awake alert and oriented x3. Abdominal pain is better and patient did have a bowel movement yesterday. No complaints of nausea or vomiting. Denies any dysuria or hematuria. Patient was started on oral diet and advance as tolerated. No complaints of chest pain or shortness of breath. No cough or sputum production. Laboratory data showed potassium level is still low at 3.1 which is being replaced. Patient is also being continued on IV hydration. 02/14/2023 Patient is a pleasant 68 years old female who admitted initially with epigastric pain and tenderness and there was suspicion of chest pain but brake machine operator ruled out chest pain or cardiac causes other signs of the case, eventually surgery team evaluated the patient for evidence of constipation on the top of chronic abdominal pain with history of multiple abdominal surgery with history of short gut syndrome. She was treated with bowel rest and laxative and she tolerated that well. Today she was tolerating liquids diet and stone to be advanced to regular diet. Patient would be discharged by surgery team. Patient denies any urinary symptoms, her initial urine analysis was suspicious for mild hematuria however repeat urine analysis is negative. Most likely her abnormal urinalysis was secondary to dehydration and GI symptoms. Patient states that she was on Keflex for UTI. Again patient with no urinary repeat urinalysis showing improvement. No need for antibiotics as patient have no signs and symptoms of UTI or infection fever or leukocytosis.. Possible discharge in 24-[address] May in the left the message. Also appointment made for the patient on 02/20 Objective - Vital Signs Vital signs: Vital Signs Temp 97.7 F 02/14/23 15:00 Pulse 93 02/14/23 15:00 Resp 16 02/14/23 15:00 BP 120/76 02/14/23 15:00 Pulse Ox 93 L 02/14/23 15:00 FiO2 Intake & Output 02/14/23 02/14/23 02/15/23 06:59 18:59 06:59 Intake Total 827 Balance 827 Intake: Oral 827 Other: Voiding Method Toilet Toilet # Voids 4 3 - Exam GENERAL: The patient is alert and oriented x3, not in any acute distress. Well developed, well nourished. HEENT: Pupils are round and equally reacting to light. EOMI. No scleral icterus. No conjunctival pallor. Normocephalic, atraumatic. No pharyngeal erythema. No thyromegaly. CARDIOVASCULAR: S1 and S2 present. No murmurs, rubs, or gallops. PULMONARY: Chest is clear to auscultation, no wheezing , no crackles. ABDOMEN: Soft, nontender, nondistended, normoactive bowel sounds. No palpable organomegaly. MUSCULOSKELETAL: No joint swelling or deformity. EXTREMITIES: No cyanosis, clubbing, or pedal edema. NEUROLOGICAL: Gross neurological examination did not reveal any focal deficits. SKIN: No rashes. no petechiae. - Labs CBC & Chem 7: 02/13/23 05:56 02/14/23 05:42 Labs: Abnormal Lab Results - Last 24 Hours (Table) 02/14/23 02/14/23 Range/Units 05:42 18:02 Chloride 112 H (96-109) mmol/L Carbon Dioxide 18.4 L (21.6-31.8) mmol/L Anion Gap 13.60 H (4.00-12.00) mmol/L BUN 6.8 L (9.0-27.0) mg/dL BUN/Creatinine Ratio 9.71 L (12.00-20.00) Ratio Urine Blood Trace H (Negative) Ur Leukocyte Esterase Small H (Negative) Urine WBC 13 H (0-5) /hpf Urine Bacteria Many H (None) /hpf Urine Mucus Rare H (None) /hpf Assessment and Plan Assessment: Chronic Abdominal pain likely due to abdominal multiple surgeries and possible elements of irritable bowel syndrome. Constipation Atypical chest pain. Resolved to no more chest pain. Cardiology sign off Dilated CBD without evidence of choledocholithiasis or pancreatic head mass postcholecystectomy changes. Elevated liver enzymes likely due to hepatocellular disease. Nonobstructing left renal calculi measuring 17 to 18 mm Short gut syndrome Prior history of multiple abdominal surgeries History of [place] status postcardiac catheterization no PCI History of DVT History of CVA/TIA Osteoarthritis Prior history of back surgery GERD Hearing results/deafness Plan: Advanced as per surgery team Patient is medically becoming stable We will monitor for another 24 hours Continue with GI and DVT prophylaxis Possible discharge in the morning Plan discussed with the patient and she is agreeable
[2023-02-15] MEDS ORDERED: ONDANSETRON ODT 4 MG TAB PO STA (03:49)
[2023-02-15] MEDS: SODIUM CHLORIDE 0.9% 1,000 ML IV SCH (06:22)
[2023-02-15 08:19] VITALS: BP 158/85; RESP 18; TEMP 97.5
[2023-02-15] MEDS: DICYCLOMINE 10 MG CAP PO PRN (08:23)
[2023-02-15] MEDS: HEPARIN SODIUM,PORCINE 5,000 UNIT/ML 1 ML VIAL SQ SCH (08:24)
[2023-02-15] MEDS: LORATADINE 10 MG TAB PO SCH (08:24)
[2023-02-15] MEDS: PANTOPRAZOLE 40 MG/10 ML VIAL IVP SCH (08:24)
[2023-02-15] MEDS: FUROSEMIDE 20 MG TAB PO SCH (08:24)
[2023-02-15] MEDS: lisinopriL 10 MG TAB PO SCH (08:24)
[2023-02-15] MEDS: METOPROLOL SUCCINATE (ER) 100 MG TAB.ER.24H PO SCH (08:24)
[2023-02-15] MEDS: ALBUTEROL NEBULIZED 2.5 MG/3 ML INHALATION PRN (10:50)
[2023-02-15 11:03] VITALS: PULSE 105
--- NOTE | 2023-02-15 12:18 | P.PN ---
Progress Note - Text Progress Note Date: 02/15/23 Patient [place] stable. Her abdominal pain is back to her normal baseline. On exam vital signs appear stable. Abdomen soft. Abdominal pain related to constipation. Patient will most likely be discharged home today. She'll follow-up as needed.
--- NOTE | 2023-02-15 22:55 | P.DS ---
Providers Date of admission: 02/11/23 14:44 Attending physician: Manuel Medina MD Consults: 02/12/23 08:31 Consult Physician Routine Consulting Provider: Giovani Artis Consult Reason/Comments: abdominal pain Do you want consulting provider notified?: Yes Primary care physician: Bia Lalo [place] Hospital Course: Diagnoses: Chronic Abdominal pain likely due to abdominal multiple surgeries and possible e lements of irritable bowel syndrome. Constipation Atypical chest pain. Resolved to no more chest pain. Cardiology sign off Dilated CBD without evidence of choledocholithiasis or pancreatic head mass postcholecystectomy changes. Elevated liver enzymes likely due to hepatocellular disease. Nonobstructing left renal calculi measuring 17 to 18 mm Short gut syndrome Prior history of multiple abdominal surgeries History of [place] status postcardiac [place] no PCI History of DVT History of CVA/TIA Osteoarthritis Prior history of back surgery GERD Hearing results/deafness Hospital course: Patient is a pleasant 68 years old female who admitted initially with epigastric pain and tenderness and there was suspicion of chest pain but machine stonecutter ruled out chest pain or cardiac causes other signs of the case, eventually surgery team evaluated the patient for evidence of constipation on the top of chronic abdominal pain with history of multiple abdominal surgery with history of short gut syndrome. She was treated with bowel rest and laxative and she tolerated that well. Today she was tolerating diet well Patient was cleared for discharged by surgery team. Patient denies any urinary symptoms, her initial urine analysis was suspicious for mild hematuria however repeat urine analysis is negative. Most likely her abnormal urinalysis was secondary to dehydration and on the top of that CAT scan showed left kidney stone. Patient denies back pain or suprapubic pain or tenderness. Repeat urinalysis is showing improvement. Patient with no fever or leukocytosis had no overt signs and symptoms at this time so that her symptoms are due to the stone and antibiotics would have more risk than benefit. However patient remains high-risk for developing UTI. The patient was instructed for close outpatient follow-up with PCP and urologist and she verbalized understanding and acceptance Patient did undergo testis is normal. Abdomenpatient states she is back to baseline. She denies any new GI neurological or other symptoms. Patient was cleared for discharge by all consultants Problems and management plan were discussed with the patient and he verbalized understanding and acceptance Patient was found stable and can be discharged home in guarded prognosis however he needs follow-up as an outpatient. Patient was instructed to follow up with PCP within one week and patient agrees I called Dr. May in the left the message. Also appointment made for the patient on 02/20 Patient was instructed to follow up with urologist Dr. Arana in one week after discharge and she agrees Instructed to follow up with surgeon Dr. Mathew on 02/23. she agrees Physical exam Gen: patient is a AAOx3, no distress CVS: S1-S2, RRR, no murmur Lungs: B/L CTA, no wheezing Abdomen: soft, no distention, no tenderness, positive bowel sounds Extremity: no leg edema or induration Time spent more than 35 minutes Plan - Discharge Summary New Discharge Prescriptions: New Acetaminophen Tab [Tylenol] 325 mg PO Q6H PRN #6 tab PRN Reason: Pain Continue Pantoprazole Sodium [Protonix] 80 mg PO DAILY Metoprolol Succinate (ER) [Toprol XL] 100 mg PO DAILY Diphenoxylate HCl/Atropine [Lomotil 2.5-0.025 mg Tablet] 1 tab PO Q6H PRN PRN Reason: Diarrhea Dicyclomine [Bentyl] 10 mg PO TID PRN PRN Reason: IBS Lidocaine/Menthol [Lidocaine-Menthol 4%-1% Patch] 1 patch TRANSDERM DAILY PRN PRN Reason: Pain SUMAtriptan succinate [Imitrex] 100 mg PO BID PRN PRN Reason: Migraine Headache Potassium Chloride ER [K-Dur 20] 40 meq PO DAILY Valtoco 1 spray NASAL ONCE PRN PRN Reason: Seizures Cyanocobalamin [Vitamin B-12 Injection] 1,000 mcg SQ SA lisinopriL [Zestril] 10 mg PO DAILY Albuterol Inhaler [Ventolin Hfa Inhaler] 2 puff INHALATION RT-QID PRN PRN Reason: Shortness Of Breath Furosemide [Lasix] 20 mg PO DAILY Nitroglycerin Sl Tabs [Nitrostat] 0.4 mg SL Q5M PRN PRN Reason: Chest Pain Cyclobenzaprine [Flexeril] 10 mg PO TID PRN 30 Days #90 tab PRN Reason: Muscle Spasm HYDROcodone/APAP 5-325MG [[place] 5-325] 1 tab PO Q6HR PRN 30 Days #120 tab PRN Reason: Pain Fexofenadine HCl [Cynthia Allergy] 180 mg PO DAILY Ondansetron Odt [Zofran ODT] 8 mg PO Q8HR PRN PRN Reason: Nausea Discontinued diazePAM [Valium] 5 mg VAGINAL BID PRN PRN Reason: Muscle Spasms Ibuprofen [Motrin] 600 mg PO Q8HR PRN PRN Reason: Pain Or Fever > 100.5 Cephalexin [Keflex] 500 mg PO Q12HR Discharge Medication List Metoprolol Succinate (ER) [Toprol XL] 100 mg PO DAILY 08/01/18 [History] Pantoprazole Sodium [Protonix] 80 mg PO DAILY 08/01/18 [History] Diphenoxylate HCl/Atropine [Lomotil 2.5-0.025 mg Tablet] 1 tab PO Q6H PRN 03/31/20 [History] Cyanocobalamin [Vitamin B-12 Injection] 1,000 mcg SQ SA 03/01/22 [History] Dicyclomine [Bentyl] 10 mg PO TID PRN 03/01/22 [History] lisinopriL [Zestril] 10 mg PO DAILY 04/17/22 [History] Albuterol Inhaler [Ventolin Hfa Inhaler] 2 puff INHALATION RT-QID PRN 07/04/22 [History] Lidocaine/Menthol [Lidocaine-Menthol 4%-1% Patch] 1 patch TRANSDERM DAILY PRN 09/13/22 [History] Furosemide [Lasix] 20 mg PO DAILY 11/30/22 [History] Nitroglycerin Sl Tabs [Nitrostat] 0.4 mg SL Q5M PRN 11/30/22 [History] Potassium Chloride ER [K-Dur 20] 40 meq PO DAILY 11/30/22 [History] SUMAtriptan succinate [Imitrex] 100 mg PO BID PRN 11/30/22 [History] Cyclobenzaprine [Flexeril] 10 mg PO TID PRN 30 Days #90 tab 12/27/22 [Rx] HYDROcodone/APAP 5-325MG [[place] 5-325] 1 tab PO Q6HR PRN 30 Days #120 tab 01/11/23 [Rx] Fexofenadine HCl [Cynthia Allergy] 180 mg PO DAILY 02/11/23 [History] Ondansetron Odt [Zofran ODT] 8 mg PO Q8HR PRN 02/11/23 [History] Valtoco 1 spray NASAL ONCE PRN 02/11/23 [History] Acetaminophen Tab [Tylenol] 325 mg PO Q6H PRN #6 tab 02/14/23 [Rx] Follow up Appointment(s)/Referral(s): Bia May MD [Primary Care Provider] - 02/20/23 11:15 am Giovani Artis MD [STAFF PHYSICIAN] - 02/26/23 11:00 am Isaiah Arana MD [STAFF PHYSICIAN] - 1 Week (Office will call with appointment time and date. left kid stone) Patient Instructions/Handouts: Chest Pain (DC) Activity/Diet/Wound Care/Special Instructions: [place] [facility] - [phone] heart healthy diet activity is restricted till you see your doctor Discharge Disposition: HOME SELF-CARE
== END 2023-02-15 13:00 | disposition home or self-care (01) ==
LOC: EC 11:51 → INTOOBSV 14:44 → 6NMEDSUR 14:44 → OBSVTOIN 14:44 → 6NMEDSUR 16:47 → UNDODISIN 02-15 13:00
PROVIDERS: ADMIT Internal Medicine; ATTEND Internal Medicine
DX: R07.89 Other chest pain (principal); R10.9 Unspecified abdominal pain; G89.29 Other chronic pain; K90.829 Short bowel syndrome, unspecified; K83.8 Other specified diseases of biliary tract; R74.8 Abnormal levels of other serum enzymes; N20.0 Calculus of kidney; I11.0 Hypertensive heart disease with heart failure; I50.9 Heart failure, unspecified; J44.9 Chronic obstructive pulmonary disease, unspecified; K21.9 Gastro-esophageal reflux disease without esophagitis; I25.10 Atherosclerotic heart disease of native coronary artery without angina pectoris; E78.5 Hyperlipidemia, unspecified; F41.9 Anxiety disorder, unspecified; F32.A Depression, unspecified; M19.90 Unspecified osteoarthritis, unspecified site; H91.90 Unspecified hearing loss, unspecified ear; I25.2 Old myocardial infarction; Z85.3 Personal history of malignant neoplasm of breast; Z85.43 Personal history of malignant neoplasm of ovary; Z85.42 Personal history of malignant neoplasm of other parts of uterus; Z86.718 Personal history of other venous thrombosis and embolism; Z86.73 Personal history of transient ischemic attack (TIA), and cerebral infarction without residual deficits; Z79.899 Other long term (current) drug therapy; Z79.82 Long term (current) use of aspirin; Z88.0 Allergy status to penicillin; Z88.5 Allergy status to narcotic agent
CPT/HCPCS: 96372 ×3; 96375 ×2; 96374; 99285; 36415; 94640 ×2; 94760; 93005 ×2; 80061; 80053 ×2; 80048 ×2; 82150; 83690; 83735 ×2; 84484; 85025 ×2; 85027; 85610; 85730; 81001 ×2; 71046; 76705; 71275; 74175; G0378 ×5; J2060; J1644 ×3; J2405; J3490; C9113; J1170; Q9967

== ENCOUNTER → 2023-03-12 | Outpatient (CLI) | payer MEDICARE, OTHER ==
--- NOTE | 2023-03-12 14:46 | US ---
EXAMINATION TYPE: US kidneys/renal and bladder DATE OF EXAM: 03/12/2023 COMPARISON: NONE CLINICAL INDICATION: Female, 68 years old with history of R10.9 UNSPECIFIED ABDOMINAL PAIN; EXAM MEASUREMENTS: Right Kidney: 9.7 x 4.6 x 5.0 cm Left Kidney: 9.6 x 5.3 x 4.2 cm Right Kidney: 2.1 x 1.8 x 1.4cm cystic area seen superior pole renal cortex Left Kidney: 2.9 x 2.3cm large stone or cluster of stones seen superior pole Bladder: not fully distended IMPRESSION: 1. Right renal cyst upper pole right kidney. 2. Calcification upper pole left kidney.
== END | disposition home or self-care (01) ==
LOC: RADMAMWWP 11:54
PROVIDERS: ATTEND Family Medicine
DX: N28.1 Cyst of kidney, acquired (principal); N28.89 Other specified disorders of kidney and ureter
CPT/HCPCS: 76770

== ENCOUNTER → 2023-03-12 | Outpatient (CLI) | payer MEDICARE, OTHER ==
--- NOTE | 2023-03-12 13:49 | US ---
EXAMINATION TYPE: US carotid duplex BILAT DATE OF EXAM: 03/12/2023 COMPARISON: NONE CLINICAL INDICATION: Female, 68 years old with history of G45.3 AMAUROSIS FUGAX; h/o stroke 1987 TECHNIQUE: Carotid duplex ultrasound examination. Indirect Doppler criteria was utilized. FINDINGS: EXAM MEASUREMENTS: RIGHT: Peak Systolic Velocity (PSV) cm/sec ----- Right CCA: 46.1 ----- Right ICA: 74.3 ----- Right ECA: 62.4 ICA/CCA ratio: 1.6 RIGHT: End Diastole cm/sec ----- Right CCA: 11.6 ----- Right ICA: 24.2 ----- Right ECA: 10.7 LEFT: Peak Systolic Velocity (PSV) cm/sec ----- Left CCA: 45.1 ----- Left ICA: 65.7 ----- Left ECA: 56.3 ICA/CCA ratio: 1.4 LEFT: End Diastole cm/sec ----- Left CCA: 10.9 ----- Left ICA: 24.9 ----- Left ECA: 15.0 VERTEBRALS (direction of flow): Right Vertebral: Antegrade Left Vertebral: Antegrade Rhythm: Normal RN ALLERGY NOTES: Mild homogeneous plaque with no stenosis seen IMPRESSION: 1. Atheromatous plaquing without significant flow-limiting stenosis based on velocities. Criteria for Assigning % of Stenosis / Diameter reduction (Estimation based on the indirect measurements of the internal carotid artery velocities (ICA PSV). 1. Normal (no stenosis)=ICA PSV < 125 cm/s: ratio < 2.0: ICA EDV<40 cm/s. 2. Less than 50% stenosis=ICA PSV < 125 cm/s: ratio < 2.0: ICA EDV<40 cm/s. 3. 50 to 69% stenosis=ICA PSV of 125 to 230 cm/s: ration 2.0 ? 4.0: ICA EDV 40-100 cm/s. 4. Greater than 70% stenosis to near occlusion= ICA PSV > 230 cm/s: ratio > 4.0: ICA EDV > 100 cm/s. 5. Near occlusion= ICA PSV velocities may be low or undetectable: variable ratio and ICA EDV. 6. Total occlusion=unable to detect flow.
--- NOTE | 2023-03-12 14:15 | MM ---
Reason for Exam: Clinical finding. Last mammogram was performed 1 year(s) and 7 month(s) ago. Patient History: Menarche at age 13. First Full-Term at age 16. Hysterectomy at age 22. Postmenopausal. Breast cancer, bilateral, age 28. Mastectomy on the Left side. Mastectomy on the Right side. Paternal cousin had breast cancer at or over age 50. Paternal cousin had breast cancer at or over age 50. Prior Study Comparison: 08/30/2021 Bilateral MG screening mammo implant/CAD, Unknown. Tissue Density: The breast tissue is almost entirely fat. Findings: Pattern appears symmetrical. No obvious interval change. Lymphadenopathy present on the right. Bilateral breast prostheses are present. Calcified breast prostheses on the left. No suspicious groups of microcalcifications, spiculated or lobular masses, architectural distortion or other secondary signs of malignancy are mammographically apparent. Overall Assessment: Incomplete: need additional imaging evaluation, BI-RAD 0 Management: Diagnostic Breast Ultrasound of both breasts. A negative mammogram report should not preclude additional follow up of suspicious palpable abnormalities. Patient should continue monthly self breast exam. A clinical breast exam by your physician is recommended on an annual basis and results should be correlated with mammographic findings. Electronically signed and approved by: Rory Mistry D.O. Radiologis
== END | disposition home or self-care (01) ==
LOC: RADUSWWP 11:59
PROVIDERS: ATTEND Ophthalmology
DX: C50.911 Malignant neoplasm of unspecified site of right female breast (principal); C50.912 Malignant neoplasm of unspecified site of left female breast; G45.3 Amaurosis fugax; Z78.0 Asymptomatic menopausal state; Z80.3 Family history of malignant neoplasm of breast
CPT/HCPCS: 77062; 77066; 93880

== ENCOUNTER → 2023-03-12 | Outpatient (CLI) | payer MEDICARE, OTHER ==
--- NOTE | 2023-03-12 14:21 | USB ---
Reason for Exam: Clinical finding. Patient History: Menarche at age 13. First Full-Term at age 16. Hysterectomy at age 22. Postmenopausal. Breast cancer, bilateral, age 28. Mastectomy on the Left side. Mastectomy on the Right side. Paternal cousin had breast cancer at or over age 50. Paternal cousin had breast cancer at or over age 50. Technique: Method: Targeted. Prior Study Comparison: 08/30/2021 Bilateral MG screening mammo implant/CAD, Unknown. Findings: The upper section of the breast of the right breast, the area of palpable concern of the left breast and the axilla of the right breast were scanned. Right breast: There is hazy appearance measuring approximately 0.6 cm at the 1:00 position 6 cm from the nipple adjacent to the breast prosthesis. By history there is been a prior prosthesis leak of silicone. There are 2 lymph nodes measuring 1.7 x 1.5 cm and 1.3 x 0.8 cm in the right axillary tail. These have a increased medullary echogenicity which could reflect changes from the prior prosthesis rupture.. Left breast: The prosthesis is identified. There is echogenic foci likely related to the calcification along the prosthesis. Prosthesis wall appears to be undulating likely related to the calcification adjacent. No suspicious masses are identified. Overall Assessment: Probably benign, BI-RAD 3 Management: Diagnostic Mammogram of both breasts in 6 months. A clinical breast exam by your physician is recommended on an annual basis and results should be correlated with mammographic findings. This exam should not preclude additional follow-up of suspicious palpable abnormalities. Results were given to the patient verbally at the time of exam. Electronically signed and approved by: Rory Mistry D.O. Radiologis
== END | disposition home or self-care (01) ==
LOC: RADUSWWP 11:56
PROVIDERS: ATTEND Family Medicine
DX: R92.8 Other abnormal and inconclusive findings on diagnostic imaging of breast (principal); R10.9 Unspecified abdominal pain; Z78.0 Asymptomatic menopausal state; Z80.3 Family history of malignant neoplasm of breast; Z85.3 Personal history of malignant neoplasm of breast

== ENCOUNTER → 2023-04-12 | Outpatient (CLI) | payer MEDICARE, OTHER ==
[2023-04-12 17:12] LABS: HGB 13.3 g/dL (12.0-15.0); MCHC 31.7 g/dL (32.0-37.0); MCV 91.7 FL (80.0-97.0); Mean Platelet Volume 10.7 FL (9.5-12.2); NRBC Per 100 WBC 0 X 10*3/uL (0.00-0.01); Platelet Count 242 X 10*3/uL (140-440); RBC 4.58 X 10*6/uL (4.10-5.20); RDW 13.5 % (11.5-14.5); WBC 6.07 X 10*3/uL (4.50-10.00)
== END | disposition home or self-care (01) ==
LOC: LABWHC1 08:58
PROVIDERS: ATTEND Surgery
DX: Z01.818 Encounter for other preprocedural examination (principal); K43.2 Incisional hernia without obstruction or gangrene; Z79.899 Other long term (current) drug therapy
CPT/HCPCS: 36415; 84132; 85027; 93005

== ENCOUNTER 2023-04-13 05:33 | Observation (INO) | payer MEDICARE, OTHER ==
[~2023-04-13 05:33] MED LIST changes: -DEXAMETHASONE SOD PHOSPHATE 4 MG/ML 1 ML VIAL IV ONE; -MIDAZOLAM 2 MG/2 ML VIAL IV PRN; -ONDANSETRON 4 MG/2 ML VIAL IVP ONE
[2023-04-13] MEDS ORDERED: DEXAMETHASONE SOD PHOSPHATE 4 MG/ML 1 ML VIAL IV ONE (05:43)
[2023-04-13] MEDS ORDERED: ONDANSETRON 4 MG/2 ML VIAL IVP ONE (05:43)
[2023-04-13] MEDS: LACTATED RINGERS 1,000 ML IV SCH (05:54)
[2023-04-13] MEDS ORDERED: MIDAZOLAM 2 MG/2 ML VIAL IVP ONE (06:49)
[2023-04-13] MEDS ORDERED: ROCURONIUM 10 MG/ML (5 ML VIAL) IV ONE (07:00)
[2023-04-13] MEDS ORDERED: MIDAZOLAM 2 MG/2 ML VIAL ONE (07:00)
[2023-04-13] MEDS ORDERED: fentaNYL (PF) 50 MCG/ML 2 ML AMP IV PRN (07:00)
[2023-04-13] MEDS ORDERED: ePHEDrine 50 MG/ML 1 ML VIAL ONE (07:00)
[2023-04-13] MEDS ORDERED: MIDAZOLAM 2 MG/2 ML VIAL IV PRN (07:00)
[2023-04-13] MEDS ORDERED: KETAMINE HCL IN 0.9 % NACL 50 MG/5 ML SYRINGE ONE (07:00)
[2023-04-13] MEDS ORDERED: LIDOCAINE 1% INJ 10MG/ML (20 ML MDV) ONE (07:00)
[2023-04-13] MEDS ORDERED: NEOSTIGMINE 1 MG/ML 10 ML VIAL ONE (07:00)
[2023-04-13] MEDS ORDERED: fentaNYL (PF) 50 MCG/ML 2 ML AMP ONE (07:00)
[2023-04-13] MEDS ORDERED: PROPOFOL 10 MG/ML 20 ML VIAL IV ONE (07:00)
[2023-04-13] MEDS ORDERED: KETOROLAC 15 MG/ML 1 ML VIAL ONE (07:00)
[2023-04-13] MEDS ORDERED: GLYCOPYRROLATE 0.2 MG/ML 2 ML VIAL ONE (07:00)
[2023-04-13] MEDS ORDERED: BUPIVACAINE (PF) 0.25% 30 ML VIAL SQ ONE ×2 (07:21→07:55)
[2023-04-13] MEDS ORDERED: NALOXONE 0.4 MG/ML 1 ML VIAL IV PRN (08:23)
[2023-04-13] MEDS ORDERED: ACETAMINOPHEN TAB 325 MG TAB PO PRN (08:23)
[2023-04-13] MEDS ORDERED: LACTATED RINGERS 1,000 ML IV ONE (08:23)
[2023-04-13] MEDS ORDERED: HYDROmorphone 1 MG/ML 1 ML SYRINGE IVP PRN (08:23)
[2023-04-13] MEDS ORDERED: HYDROmorphone 0.5 MG/0.5 ML SYRINGE IVP ONE ×4 (08:27→09:30)
--- NOTE | 2023-04-13 08:37 | P.OP ---
Date of Procedure: 04/13/23 Preoperative Diagnosis: Incisional hernia Postoperative Diagnosis: Incarcerated incisional hernia Procedure(s) Performed: Open repair of incarcerated incisional hernia with mesh Anesthesia: HADLEY Surgeon: Giovani Artis Estimated Blood Loss (ml): 25 Pathology: none sent Condition: stable Disposition: PACU Description of Procedure: The patient's placed on the operative table in the supine position. She received general endotracheal tube as you. Her abdomen was prepped and draped in the usual sterile fashion. The skin was incised in the midline through her previous scar. Using electrode cautery subcutaneous tissue divided. The hernia sac was encountered just left of the midline scar. The fascia was then opened. And then using blunt and sharp dissection with cautery the adhesions to the abdominal wall were lysed with sharp dissection. Care was taken to identify and preserve bowel. There were significant adhesions seen. After the adhesions were freed. The fascia was closed with 0 Ethibond pop-off suture. Using a [id number] fashion. And then in the piece of Prolene 6 x 6" mesh was placed on top of the repair and secured with secure strap tacker. A NORI drains placed over top the mesh and brought through separate stab incision. Baldomero's fascia close [place]. Skin was closed devon.
[2023-04-13] MEDS: HYDROmorphone 0.5 MG/0.5 ML SYRINGE IVP PRN ×5 (11:26→23:54)
[2023-04-13] MEDS ORDERED: NITROGLYCERIN SL TABS 0.4 MG TAB SUBLINGUAL PRN (21:39)
[2023-04-14] MEDS: ALPRAZolam 0.25 MG TAB PO PRN ×3 (00:30→18:27)
[2023-04-14] MEDS: HYDROmorphone 0.5 MG/0.5 ML SYRINGE IVP PRN ×7 (03:00→21:47)
[2023-04-14] MEDS: LACTATED RINGERS 1,000 ML IV SCH (08:38)
[2023-04-14] MEDS: POTASSIUM CHLORIDE ER 20 MEQ TAB.ER PO SCH (08:39)
[2023-04-14] MEDS: FUROSEMIDE 20 MG TAB PO SCH (08:39)
[2023-04-14] MEDS: PANTOPRAZOLE 40 MG TABLET PO SCH (08:39)
[2023-04-14] MEDS: ENOXAPARIN 40 MG/0.4 ML SYRINGE SQ SCH (08:39)
[2023-04-14] MEDS: lisinopriL 10 MG TAB PO SCH (08:39)
[2023-04-14] MEDS: METOPROLOL SUCCINATE (ER) 100 MG TAB.ER.24H PO SCH (08:40)
[2023-04-14 09:11] LABS: Blood Urea Nitrogen 6.4 mg/dL (9.0-27.0); Calcium 9.1 mg/dL (8.7-10.3); Carbon Dioxide 26.4 mmol/L (21.6-31.8); Chloride 103 mmol/L (96-109); Glucose 100 mg/dL (70-110); Potassium 4.2 mmol/L (3.5-5.5); Sodium 138 mmol/L (135-145)
[2023-04-14 10:18] LABS: Basophils # (A) 0.03 X 10*3/uL (0.00-0.10); Basophils % (A) 0.4 %; Eosinophils # (A) 0.12 X 10*3/uL (0.04-0.35); Eosinophils % (A) 1.4 %; HCT 34.1 % (37.2-46.3); Lymphocytes # (A) 1.85 X 10*3/uL (0.90-5.00); Lymphocytes % (A) 21.6 %; MCH 29.3 pg (27.0-32.0); MCHC 32.3 g/dL (32.0-37.0); MCV 90.9 FL (80.0-97.0); Mean Platelet Volume 10.1 FL (9.5-12.2); Monocytes # (A) 0.83 X 10*3/uL (0.20-1.00); Monocytes % (A) 9.7 %; NRBC Per 100 WBC 0 X 10*3/uL (0.00-0.01); Neutrophils # (A) 5.71 X 10*3/uL (1.80-7.70); Neutrophils % (A) 66.7 %; Platelet Count 210 X 10*3/uL (140-440); RBC 3.75 X 10*6/uL (4.10-5.20); RDW 13.7 % (11.5-14.5); WBC 8.56 X 10*3/uL (4.50-10.00)
--- NOTE | 2023-04-14 11:10 | P.PN ---
Subjective Progress Note Date: 04/14/23 JOSEPH. Patient states that she feels well. No N/V. No F/C. No SOB or CP. Admits to small amount of flatus. No BM. Voiding and ambulatory. Objective - Vital Signs Vital signs: Vital Signs Temp 98.0 F 04/14/23 07:18 Pulse 92 04/14/23 07:18 Resp 16 04/14/23 07:18 BP 123/63 04/14/23 07:18 Pulse Ox 93 L 04/14/23 07:18 FiO2 Intake & Output 04/13/23 04/14/23 04/14/23 18:59 06:59 18:59 Intake Total 1500 Output Total 25 30 Balance 1475 -30 Weight 56.8 kg Intake: IV 1500 Output: Drainage 30 Anterior Medial Abdomen 30 Estimated Blood Loss 25 Other: Voiding Method Toilet # Voids 1 2 # Bowel Movements 0 - Exam Gen: AxO, NAD Pulm: non-labored respirations Abd: soft, non-tender, minimally distended, no guarding/rebound/rigidity Incisions: C/D/I, no erythema or fluctuence appreciated NORI: intact, producing serosang output Extrem: no edema seen - Labs CBC & Chem 7: 04/14/23 06:16 04/14/23 06:16 Labs: Abnormal Lab Results - Last 24 Hours (Table) 04/14/23 04/14/23 Range/Units 06:16 06:16 RBC 3.75 L (4.10-5.20) X 10*6/uL Hgb 11.0 L (12.0-15.0) g/dL Hct 34.1 L (37.2-46.3) % BUN 6.4 L (9.0-27.0) mg/dL Creatinine 0.5 L (0.6-1.5) mg/dL Assessment and Plan Assessment: Patient is a 68 year old female who is POD#1 from incisional hernia repair with mesh Plan: -CLD as tolerated -IVF hydration -PRN pain and nausea control -Strict I/O for Nori drain -DVT/GI PPX Harjit Andrews MD General Surgery
--- NOTE | 2023-04-14 19:48 | P.CONS ---
History of Present Illness - Reason for Consult Consult date: 04/13/23 Medical management - Chief Complaint Incarcerated incisional hernia - History of Present Illness 68-year-old female patient, history of hypertension, seizure disorder, DVT, COPD, CAD/CHF, incarcerated incisional hernia, admitted to the hospital for open repair of incarcerated incisional hernia with mesh; patient is POD #0 Internal medicine service is consulted for medical management -- Patient is currently postop and requesting pain medication; does report some nausea - Patient denies any chest pain or shortness of breath Review of Systems REVIEW OF SYSTEMS: CONSTITUTIONAL: No fever, no malaise, no fatigue. HEENT: No recent visual problems or hearing problems. Denied any sore throat. CARDIOVASCULAR: No chest pain, orthopnea, PND, no palpitations, no syncope. PULMONARY: No shortness of breath, no cough, no hemoptysis. GASTROINTESTINAL: No diarrhea, no nausea, no vomiting, no abdominal pain. NEUROLOGICAL: No headaches, no weakness, no numbness. HEMATOLOGICAL: Denies any bleeding or petechiae. GENITOURINARY: Denies any burning micturition, frequency, or urgency. MUSCULOSKELETAL/RHEUMATOLOGICAL: Denies any joint pain, swelling, or any muscle pain. ENDOCRINE: Denies any polyuria or polydipsia. The rest of the 14-point review of systems is negative. Past Medical History Past Medical History: Coronary Artery Disease (CAD), Cancer, Heart Failure, COPD, CVA/TIA, Deep Vein Thrombosis (DVT), GERD/Reflux, Hearing Disorder / Deafness, Hypertension, Myocardial Infarction (ID), Neurologic Disorder, Osteoarthritis (OA), Seizure Disorder Additional Past Medical History / Comment(s): History of bilateral breast cancer, ovarian cancer, uterine cancer, history of CVA (no residual) back in 1982, history of irregular heart rate possibly atrial fibrillation many years back, history of occasional petit mal seizures (grand mal seizures but none in decades), , previous ID, history of DVT, multiple bowel obstruction requiring previous abdominal surgeries and bowel resection. She also has renal cysts/stone, 1979's SSS, short gut syndrome, hx. of aoustic neuroma left ear Last Myocardial Infarction Date:: 1997 History of Any Multi-Drug Resistant Organisms: MRSA Year Discovered:: 2003 MDRO Source:: lt hip Past Surgical History: Appendectomy, Back Surgery, Bowel Resection, Breast Surgery, Cholecystectomy, Hernia Repair, Hysterectomy, Orthopedic Surgery, Tonsillectomy Additional Past Surgical History / Comment(s): earnest mastectomy, oopherectomy back surgery x5 with last sx cage in back, bowel resection x5-6, earnest. carpal tunnel, lt rotator cuff repair, incisional hernia repair 04/13/23 Past Anesthesia/Blood Transfusion Reactions: Previous Problems w/ Anesthesia Additional Past Anesthesia/Blood Transfusion Reaction / Comm: experiences anxiety prior to surgery and agitiation. b/p elevates during surgery. woke up during surgery. Very difficult IV start Past Psychological History: Anxiety, Depression Additional Psychological History / Comment(s): Pt resides alone. Cane/walker at times. Smoking Status: Never smoker Past Alcohol Use History: Rare Past Drug Use History: None Reported Additional Drug Use History / Comment(s): CBD pill daily stopped 07/30/18 - Past Family History Mother Family Medical History: Cancer Additional Family Medical History / Comment(s): Lung cancer. Father Family Medical History: Cancer Additional Family Medical History / Comment(s): kidney cancer Brother(s) Family Medical History: Cancer Additional Family Medical History / Comment(s): Lung cancer with metastasis. Medications and Allergies Home Medications Medication Instructions Recorded Confirmed Type Metoprolol Succinate (ER) [Toprol 100 mg PO DAILY 08/01/18 04/13/23 History XL] Pantoprazole Sodium [Protonix] 80 mg PO DAILY 08/01/18 04/13/23 History Diphenoxylate HCl/Atropine 1 tab PO Q6H PRN 03/31/20 04/13/23 History [Lomotil 2.5-0.025 mg Tablet] Cyanocobalamin [Vitamin B-12 1,000 mcg SQ SA 03/01/22 04/13/23 History Injection] Dicyclomine [Bentyl] 10 mg PO TID PRN 03/01/22 04/13/23 History lisinopriL [Zestril] 10 mg PO DAILY 04/17/22 04/13/23 History Albuterol Inhaler [Ventolin Hfa 2 puff INHALATION RT-QID PRN 07/04/22 04/13/23 History Inhaler] Lidocaine/Menthol 1 patch TRANSDERM DAILY PRN 09/13/22 04/13/23 History [Lidocaine-Menthol 4%-1% Patch] Furosemide [Lasix] 20 mg PO DAILY 11/30/22 04/13/23 History Nitroglycerin Sl Tabs [Nitrostat] 0.4 mg SL Q5M PRN 11/30/22 04/13/23 History Potassium Chloride ER [K-Dur 20] 40 meq PO DAILY 11/30/22 04/13/23 History SUMAtriptan succinate [Imitrex] 100 mg PO BID PRN 11/30/22 04/13/23 History Cyclobenzaprine [Flexeril] 10 mg PO TID PRN 30 Days #90 tab 12/27/22 04/13/23 Rx Fexofenadine HCl [Cynthia Allergy] 180 mg PO DAILY PRN 02/11/23 04/13/23 History Ondansetron Odt [Zofran ODT] 8 mg PO Q8HR PRN 02/11/23 04/13/23 History Acetaminophen Tab [Tylenol] 325 mg PO Q6H PRN #6 tab 02/14/23 04/13/23 Rx Allergies Allergy/AdvReac Type Severity Reaction Status Date / Time Penicillins Allergy Anaphylaxis Verified 04/11/23 08:41 phenobarbital Allergy Rash/Hives Verified 04/11/23 08:41 phenytoin [From Dilantin] Allergy Anaphylaxis Verified 04/11/23 08:41 carbamazepine [From Tegretol] AdvReac increases Verified 04/11/23 08:41 seizures morphine AdvReac Itching Verified 04/11/23 08:41 Physical Exam Vitals: Vital Signs Temp Pulse Resp BP Pulse Ox 04/13/23 13:45 98.1 F 100 18 137/82 100 04/13/23 12:45 88 16 119/65 97 04/13/23 11:45 76 16 126/66 96 04/13/23 11:12 97 16 104/58 94 L 04/13/23 10:45 54 L 16 115/62 93 L 04/13/23 09:45 55 L 16 114/68 04/13/23 09:14 70 16 121/64 04/13/23 08:59 72 16 113/64 100 04/13/23 08:44 56 L 16 128/73 100 04/13/23 08:29 62 16 129/68 100 04/13/23 08:14 85 16 145/68 96 04/13/23 06:08 97.0 F L 74 16 162/74 100 Intake and Output 04/12/23 04/13/23 04/13/23 22:59 06:59 14:59 Intake Total 100 1500 Output Total 25 Balance 100 1475 Intake: IV 100 1500 Output: Estimated Blood Loss 25 Other: # Voids 1 Weight 56.8 kg 56.8 kg - Constitutional General appearance: Present: average body habitus, cooperative, no acute distress - EENT Eyes: Present: anicteric sclerae, EOMI, PERRLA, normal appearance ENT: Present: hearing grossly normal, normal oropharynx Ears: bilateral: normal - Neck Neck: Present: normal ROM. Absent: lymphadenopathy, rigidity, thyromegaly Carotids: negative: bruit present Thyroid: bilateral: normal size, negative: enlarged, nodule - Respiratory Respiratory: bilateral: CTA, negative: rales, rhonchi, wheezing - Cardiovascular Rhythm: regular Heart sounds: normal: S1, S2 Abnormal Heart Sounds: Absent: systolic murmur, diastolic murmur - Gastrointestinal General gastrointestinal: Present: normal bowel sounds, soft. Absent: distended, organomegaly, tenderness - Genitourinary Genitourinary Comment(s): deferred - Integumentary Integumentary: Present: normal turgor. Absent: jaundiced, rash, ulcer - Neurologic Neurologic: Present: CNII-XII intact. Absent: focal deficits - Musculoskeletal Musculoskeletal: Present: gait normal, strength equal bilaterally - Psychiatric Psychiatric: Present: A&O x's 3, appropriate affect, intact judgment & insight Results CBC & Chem 7: 04/14/23 06:16 04/14/23 06:16 Assessment and Plan Assessment: 1. Incarcerated incisional hernia - Patient is status post open repair with mesh; POD #0 - Remains on slow IV fluid hydration with lactated Ringer's; Dilaudid 0.5-1 mg when necessary for pain control; Zofran 4 mg IV every 6 hours when necessary - Protonix 40 mg IV daily 2. Hypertension; lisinopril 10 mg daily, metoprolol 100 mg daily 3. CAD/CHF; metoprolol 100 mg daily; Lasix 20 mg daily 4. Gastroesophageal reflux disease; Protonix 80 mg daily 5. Seasonal ALLERGIES; continue with home dose of Cynthia 180 mg daily DVT prophylaxis; SCDs/subcu Lovenox CODE STATUS; full code
--- NOTE | 2023-04-14 19:51 | P.PN ---
Subjective Progress Note Date: 04/14/23 68-year-old female patient, history of hypertension, seizure disorder, DVT, COPD, CAD/CHF, incarcerated incisional hernia, admitted to the hospital for open repair of incarcerated incisional hernia with mesh; patient is POD #0 Internal medicine service is consulted for medical management -- Patient is currently postop and requesting pain medication; does report some nausea - Patient denies any chest pain or shortness of breath Objective - Vital Signs Vital signs: Vital Signs Temp 98.0 F 04/14/23 07:18 Pulse 92 04/14/23 07:18 Resp 16 04/14/23 07:18 BP 123/63 04/14/23 07:18 Pulse Ox 93 L 04/14/23 07:18 FiO2 Intake & Output 04/13/23 04/14/23 04/14/23 18:59 06:59 18:59 Intake Total 1500 Output Total 25 30 Balance 1475 -30 Weight 56.8 kg Intake: IV 1500 Output: Drainage 30 Anterior Medial Abdomen 30 Estimated Blood Loss 25 Other: Voiding Method Toilet # Voids 1 2 # Bowel Movements 0 - Exam - Constitutional General appearance: Present: average body habitus, cooperative, no acute distre ss - EENT Eyes: Present: anicteric sclerae, EOMI, PERRLA, normal appearance ENT: Present: hearing grossly normal, normal oropharynx Ears: bilateral: normal - Neck Neck: Present: normal ROM. Absent: lymphadenopathy, rigidity, thyromegaly Carotids: negative: bruit present Thyroid: bilateral: normal size, negative: enlarged, nodule - Respiratory Respiratory: bilateral: CTA, negative: rales, rhonchi, wheezing - Cardiovascular Rhythm: regular Heart sounds: normal: S1, S2 Abnormal Heart Sounds: Absent: systolic murmur, diastolic murmur - Gastrointestinal General gastrointestinal: Present: normal bowel sounds, soft. Absent: distended, organomegaly, tenderness - Genitourinary Genitourinary Comment(s): deferred - Integumentary Integumentary: Present: normal turgor. Absent: jaundiced, rash, ulcer - Neurologic Neurologic: Present: CNII-XII intact. Absent: focal deficits - Musculoskeletal Musculoskeletal: Present: gait normal, strength equal bilaterally - Psychiatric Psychiatric: Present: A&O x's 3, appropriate affect, intact judgment & insight - Labs CBC & Chem 7: 04/14/23 06:16 04/14/23 06:16 Labs: Abnormal Lab Results - Last 24 Hours (Table) 04/14/23 04/14/23 Range/Units 06:16 06:16 RBC 3.75 L (4.10-5.20) X 10*6/uL Hgb 11.0 L (12.0-15.0) g/dL Hct 34.1 L (37.2-46.3) % BUN 6.4 L (9.0-27.0) mg/dL Creatinine 0.5 L (0.6-1.5) mg/dL
[2023-04-15] MEDS: HYDROmorphone 0.5 MG/0.5 ML SYRINGE IVP PRN ×7 (01:23→22:27)
[2023-04-15] MEDS: ALPRAZolam 0.25 MG TAB PO PRN ×3 (02:28→20:39)
[2023-04-15] MEDS: LACTATED RINGERS 1,000 ML IV SCH ×2 (09:01→22:28)
[2023-04-15] MEDS: PANTOPRAZOLE 40 MG TABLET PO SCH (09:03)
[2023-04-15] MEDS: lisinopriL 10 MG TAB PO SCH (09:04)
[2023-04-15] MEDS: POTASSIUM CHLORIDE ER 20 MEQ TAB.ER PO SCH (09:04)
[2023-04-15] MEDS: ONDANSETRON 4 MG/2 ML VIAL IVP PRN ×2 (09:04→18:58)
[2023-04-15] MEDS: ENOXAPARIN 40 MG/0.4 ML SYRINGE SQ SCH (09:04)
[2023-04-15] MEDS: FUROSEMIDE 20 MG TAB PO SCH (09:04)
[2023-04-15] MEDS: METOPROLOL SUCCINATE (ER) 100 MG TAB.ER.24H PO SCH (09:05)
[2023-04-15 09:35] LABS: Basophils # (A) 0.04 X 10*3/uL (0.00-0.10); Basophils % (A) 0.5 %; Eosinophils # (A) 0.33 X 10*3/uL (0.04-0.35); Eosinophils % (A) 4.5 %; HCT 34.2 % (37.2-46.3); Lymphocytes # (A) 1.58 X 10*3/uL (0.90-5.00); Lymphocytes % (A) 21.4 %; MCH 29.6 pg (27.0-32.0); MCHC 32.2 g/dL (32.0-37.0); MCV 91.9 FL (80.0-97.0); Monocytes # (A) 0.89 X 10*3/uL (0.20-1.00); Monocytes % (A) 12.1 %; NRBC Per 100 WBC 0 X 10*3/uL (0.00-0.01); Neutrophils # (A) 4.51 X 10*3/uL (1.80-7.70); Neutrophils % (A) 61.2 %; Platelet Count 202 X 10*3/uL (140-440); RBC 3.72 X 10*6/uL (4.10-5.20); RDW 14.1 % (11.5-14.5); WBC 7.37 X 10*3/uL (4.50-10.00)
[2023-04-15 10:14] LABS: Blood Urea Nitrogen 3.8 mg/dL (9.0-27.0); Chloride 102 mmol/L (96-109); Glucose 96 mg/dL (70-110); Potassium 4.4 mmol/L (3.5-5.5); Sodium 139 mmol/L (135-145)
--- NOTE | 2023-04-15 12:12 | P.PN ---
Progress Note - Text Progress Note Date: 04/15/23 The patient's complaints of incisional pain. She has had some minimal flatus. On exam vital signs appear stable. Abdomen soft. Incisions clean dry tach. It appears status post repair of incarcerated incisional hernia. Patient will K receive supportive care. We discussed with discharged home the next 48 hours.
[2023-04-16] MEDS: ONDANSETRON 4 MG/2 ML VIAL IVP PRN ×2 (01:32→08:28)
[2023-04-16] MEDS: HYDROmorphone 0.5 MG/0.5 ML SYRINGE IVP PRN ×6 (01:33→20:13)
[2023-04-16] MEDS: ALPRAZolam 0.25 MG TAB PO PRN ×3 (04:26→21:34)
--- NOTE | 2023-04-16 06:13 | P.PN ---
Subjective Progress Note Date: 04/15/23 68-year-old female patient, history of hypertension, seizure disorder, DVT, COPD, CAD/CHF, incarcerated incisional hernia, admitted to the hospital for open repair of incarcerated incisional hernia with mesh; patient is POD #0 Internal medicine service is consulted for medical management -- Patient is currently postop and requesting pain medication; does report some nausea - Patient denies any chest pain or shortness of breath 04/15/2023 Patient is seen and evaluated in room at bedside; discussed with nursing staff; no specific complaints VS are reviewed; labs are reviewed and remain stable Plan is to continue to advance diet and continue current treatment; possible dc in next 24-48 hrs Objective - Vital Signs Vital signs: Vital Signs Temp 97.6 F 04/15/23 07:18 Pulse 96 04/15/23 07:18 Resp 16 04/15/23 07:18 BP 113/69 04/15/23 07:18 Pulse Ox 96 04/15/23 07:18 FiO2 Intake & Output 04/14/23 04/15/23 04/15/23 18:59 06:59 18:59 Intake Total 1200 Output Total 40 50 Balance 1160 -50 Intake: Intake, IV Titration 1200 Amount Lactated Ringers 1,000 ml 1200 @ 100 mls/hr IV .Q10H ONE Rx#:[id number] Output: Drainage 40 50 Anterior Medial Abdomen 40 50 Other: Voiding Method Toilet # Voids 5 # Bowel Movements 1 - Exam - Constitutional General appearance: Present: average body habitus, cooperative, no acute distress - EENT Eyes: Present: anicteric sclerae, EOMI, PERRLA, normal appearance ENT: Present: hearing grossly normal, normal oropharynx Ears: bilateral: normal - Neck Neck: Present: normal ROM. Absent: lymphadenopathy, rigidity, thyromegaly Carotids: negative: bruit present Thyroid: bilateral: normal size, negative: enlarged, nodule - Respiratory Respiratory: bilateral: CTA, negative: rales, rhonchi, wheezing - Cardiovascular Rhythm: regular Heart sounds: normal: S1, S2 Abnormal Heart Sounds: Absent: systolic murmur, diastolic murmur - Gastrointestinal General gastrointestinal: Present: normal bowel sounds, soft. Absent: dis tended, organomegaly, tenderness - Genitourinary Genitourinary Comment(s): deferred - Integumentary Integumentary: Present: normal turgor. Absent: jaundiced, rash, ulcer - Neurologic Neurologic: Present: CNII-XII intact. Absent: focal deficits - Musculoskeletal Musculoskeletal: Present: gait normal, strength equal bilaterally - Psychiatric Psychiatric: Present: A&O x's 3, appropriate affect, intact judgment & insight - Labs CBC & Chem 7: 04/15/23 05:55 04/15/23 05:55 Labs: Abnormal Lab Results - Last 24 Hours (Table) 04/15/23 04/15/23 Range/Units 05:55 05:55 RBC 3.72 L (4.10-5.20) X 10*6/uL Hgb 11.0 L (12.0-15.0) g/dL Hct 34.2 L (37.2-46.3) % BUN 3.8 L (9.0-27.0) mg/dL Creatinine 0.5 L (0.6-1.5) mg/dL BUN/Creatinine Ratio 7.60 L (12.00-20.00) Ratio Assessment and Plan Assessment: 1. Incarcerated incisional hernia - Patient is status post open repair with mesh; POD #0 - Remains on slow IV fluid hydration with lactated Ringer's; Dilaudid 0.5-1 mg when necessary for pain control; Zofran 4 mg IV every 6 hours when necessary - Protonix 40 mg IV daily 2. Hypertension; lisinopril 10 mg daily, metoprolol 100 mg daily 3. CAD/CHF; metoprolol 100 mg daily; Lasix 20 mg daily 4. Gastroesophageal reflux disease; Protonix 80 mg daily 5. Seasonal ALLERGIES; continue with home dose of Cynthia 180 mg daily DVT prophylaxis; SCDs/subcu Lovenox CODE STATUS; full code
[2023-04-16] MEDS: PANTOPRAZOLE 40 MG TABLET PO SCH (08:27)
[2023-04-16] MEDS: POTASSIUM CHLORIDE ER 20 MEQ TAB.ER PO SCH (08:27)
[2023-04-16] MEDS: METOPROLOL SUCCINATE (ER) 100 MG TAB.ER.24H PO SCH (08:28)
[2023-04-16] MEDS: ENOXAPARIN 40 MG/0.4 ML SYRINGE SQ SCH (08:28)
[2023-04-16] MEDS: FUROSEMIDE 20 MG TAB PO SCH (08:28)
[2023-04-16] MEDS: lisinopriL 10 MG TAB PO SCH (08:28)
[2023-04-16 11:08] LABS: Blood Urea Nitrogen 5.3 mg/dL (9.0-27.0); Calcium 8.9 mg/dL (8.7-10.3); Chloride 99 mmol/L (96-109); Glucose 117 mg/dL (70-110); Potassium 3.8 mmol/L (3.5-5.5); Sodium 140 mmol/L (135-145)
[2023-04-16] MEDS ORDERED: PROCHLORPERAZINE INJ 10 MG/2 ML VIAL IVP PRN (13:25)
--- NOTE | 2023-04-16 13:25 | P.PN ---
Subjective Progress Note Date: 04/16/23 CHIEF COMPLAINT: Incarcerated incisional hernia HISTORY OF PRESENT ILLNESS: Patient is postop day #3 status post open repair of incarcerated incisional hernia with mesh. Patient reports her pain is contro lled. She is having bowel movements. She did have nausea earlier that resolved. She reports feeling hungry and wants advancement of diet. Afebrile. NORI drain 60 mL serosanguineous output PHYSICAL EXAM: VITAL SIGNS: Reviewed. GENERAL: Well-developed in no acute distress. ABDOMEN: Soft. Nondistended. Prevana wound vac intact. NORI drain serosanguineous NEUROLOGIC: Alert and oriented. Cranial nerves II through XII grossly intact. ASSESSMENT: 1. Incarcerated incisional hernia PLAN: -Advance diet to low fiber -Encouraged patient to increase activity level -Add [place] for oral pain medication -Anticipate discharge tomorrow -DVT prophylaxis Lovenox and GI prophylaxis Protonix Physician Child Abuse Worker note has been reviewed by physician. Signing provider agrees with the documented findings, assessment, and plan of care. Objective - Vital Signs Vital signs: Vital Signs Temp 97.5 F L 04/16/23 07:10 Pulse 94 04/16/23 07:10 Resp 16 04/16/23 07:10 BP 122/78 04/16/23 07:10 Pulse Ox 96 04/16/23 07:10 FiO2 Intake & Output 04/15/23 04/16/23 04/16/23 18:59 06:59 18:59 Intake Total 240 Output Total 60 Balance 240 -60 Intake: Intake, IV Titration 240 Amount Lactated Ringers 1,000 ml 240 @ 20 mls/hr IV .Q24H [facility] Rx#:[id number] Output: Drainage 60 Anterior Medial Abdomen 60 Other: Voiding Method Toilet Toilet Toilet # Voids 1 - Labs CBC & Chem 7: 04/15/23 05:55 04/16/23 05:36 Labs: Abnormal Lab Results - Last 24 Hours (Table) 04/16/23 Range/Units 05:36 Anion Gap 14.00 H (4.00-12.00) mmol/L BUN 5.3 L (9.0-27.0) mg/dL Creatinine 0.5 L (0.6-1.5) mg/dL BUN/Creatinine Ratio 10.60 L (12.00-20.00) Ratio Glucose 117 H (70-110) mg/dL
[2023-04-16] MEDS: HYDROcodone/APAP 5-325MG 1 EACH TAB PO PRN (16:10)
--- NOTE | 2023-04-16 22:47 | P.PN ---
Subjective Progress Note Date: 04/16/23 Patient is evaluated today on medical floor she is postoperative day #3 open repair of incarcerated incisional hernia with mesh. NORI drain remains in place with serosangueinous drainage, documented as 120 mls overnight. Abdominal binder in place. Continues with significant abdominal pain on oral norco and IV diluadid. She has had bowel movement since surgery and diet has been advanced to low fiber. Blood pressure low normal. 90-110 systolic. Sodium 140, BUN 5.3, creatinine 0.5. Glucose 117. Review of Systems Constitutional: Denied any fatigue denied any fever. Cardio vascular: denied any chest pain, palpitations Gastrointestinal: denied any nausea, vomiting, diarrhea Pulmonary: Denied any shortness of breath cough Neurologic denied any new focal deficits All inpatient medications were reviewed and appropriate changes in these medications as dictated in the interval history and assessment and plan. PHYSICAL EXAMINATION: GENERAL: The patient is alert and oriented x3, not in any acute distress. Well developed, well nourished. HEENT: Pupils are round and equally reacting to light. EOMI. No scleral icterus. No conjunctival pallor. Normocephalic, atraumatic. No pharyngeal erythema. No th yromegaly. CARDIOVASCULAR: S1 and S2 present. No murmurs, rubs, or gallops. PULMONARY: Chest is clear to auscultation, no wheezing or crackles. ABDOMEN: Soft, nontender, nondistended, normoactive bowel sounds. No palpable organomegaly. Post surgical, NORI drain in place. MUSCULOSKELETAL: No joint swelling or deformity. EXTREMITIES: No cyanosis, clubbing, or pedal edema. NEUROLOGICAL: Gross neurological examination did not reveal any focal deficits. SKIN: No rashes. Assessment and Plan -Incarcerated incisional hernia; Patient is status post open repair with mesh; POD #3 continue with IV and PO pain managment, NORI drain remains in place. Diet has been advanced. -Hypertension; Currently normotensive lisinopril discontinued due to systolic BP dropping into the 90s continues on metoprolol. -CAD/CHF; metoprolol 100 mg daily; Lasix 20 mg daily -Gastroesophageal reflux disease; Protonix 80 mg daily DVT prophylaxis; SCDs/subcu Lovenox CODE STATUS; full code The impression and plan of care has been dictated by Irlanda Al, Nurse Practitioner as directed. Dr. Ramila MD I have performed a history and physical examination and medical decision making of this patient, discussed the same with the dictator, and agree with the dictators assessment and plan as written, documented as a scribe. Based on total visit time, I have performed more than 50% of this visit. Objective - Vital Signs Vital signs: Vital Signs Temp 99.1 F 04/16/23 12:57 Pulse 99 04/16/23 12:57 Resp 16 04/16/23 12:57 BP 99/75 04/16/23 12:57 Pulse Ox 97 04/16/23 12:57 FiO2 Intake & Output 04/15/23 04/16/23 04/16/23 18:59 06:59 18:59 Intake Total 240 Output Total 60 Balance 240 -60 Intake: Intake, IV Titration 240 Amount Lactated Ringers 1,000 ml 240 @ 20 mls/hr IV .Q24H URBAN Rx#:[id number] Output: Drainage 60 Anterior Medial Abdomen 60 Other: Voiding Method Toilet Toilet Toilet # Voids 1 - Labs CBC & Chem 7: 04/15/23 05:55 04/16/23 05:36 Labs: Abnormal Lab Results - Last 24 Hours (Table) 04/16/23 Range/Units 05:36 Anion Gap 14.00 H (4.00-12.00) mmol/L BUN 5.3 L (9.0-27.0) mg/dL Creatinine 0.5 L (0.6-1.5) mg/dL BUN/Creatinine Ratio 10.60 L (12.00-20.00) Ratio Glucose 117 H (70-110) mg/dL Assessment and Plan Time with Patient: Less than 30
[2023-04-17] MEDS: HYDROmorphone 0.5 MG/0.5 ML SYRINGE IVP PRN ×3 (01:01→08:55)
[2023-04-17 02:13] VITALS: RESP 17
[2023-04-17] MEDS: ALPRAZolam 0.25 MG TAB PO PRN (04:38)
[2023-04-17] MEDS: LACTATED RINGERS 1,000 ML IV SCH (05:19)
[2023-04-17 07:42] VITALS: BP 106/72; PULSE 98; TEMP 98
[2023-04-17] MEDS: FUROSEMIDE 20 MG TAB PO SCH (07:45)
[2023-04-17] MEDS: PANTOPRAZOLE 40 MG TABLET PO SCH (07:45)
[2023-04-17] MEDS: METOPROLOL SUCCINATE (ER) 100 MG TAB.ER.24H PO SCH (07:45)
[2023-04-17] MEDS: POTASSIUM CHLORIDE ER 20 MEQ TAB.ER PO SCH (07:45)
[2023-04-17] MEDS: HYDROcodone/APAP 5-325MG 1 EACH TAB PO PRN (07:45)
[2023-04-17] MEDS: ENOXAPARIN 40 MG/0.4 ML SYRINGE SQ SCH (07:45)
--- NOTE | 2023-04-17 12:08 | P.DS ---
Providers Date of admission: 04/13/23 08:23 Expected date of discharge: 04/17/23 Attending physician: Giovani Artis Consults: 04/13/23 08:26 Consult Physician Routine Consulting Provider: Ciera Solitario Consult Reason/Comments: Medical management Do you want consulting provider notified?: Yes Primary care physician: Bia May Hospital Course: Discharge diagnosis 1. Incarcerated incisional hernia status post open repair of incarcerated incisional hernia with mesh Hospital course This is a 68-year-old female with an incarcerated incisional hernia. She is status post open repair of incarcerated incisional hernia with mesh. Patient tolerated surgery well. Pain is controlled. She is tolerating diet. She is having bowel movements. She has been up and ambulating. She's afebrile. She is stable for discharge. Please refer to chart for any further details. Physician Computer Aided Design Drafter note has been reviewed by physician. Signing provider agrees with the documented findings, assessment, and plan of care. Patient Condition at Discharge: Stable Plan - Discharge Summary Discharge Rx Participant: No New Discharge Prescriptions: New HYDROcodone/APAP 7.5-325MG [Aldrich 7.5-325] 1 tab PO Q6HR PRN 3 Days #12 tab PRN Reason: Pain Continue Pantoprazole Sodium [Protonix] 80 mg PO DAILY Metoprolol Succinate (ER) [Toprol XL] 100 mg PO DAILY Diphenoxylate HCl/Atropine [Lomotil 2.5-0.025 mg Tablet] 1 tab PO Q6H PRN PRN Reason: Diarrhea Lidocaine/Menthol [Lidocaine-Menthol 4%-1% Patch] 1 patch TRANSDERM DAILY PRN PRN Reason: Pain SUMAtriptan succinate [Imitrex] 100 mg PO BID PRN PRN Reason: Migraine Headache Potassium Chloride ER [K-Dur 20] 40 meq PO DAILY Cyanocobalamin [Vitamin B-12 Injection] 1,000 mcg SQ SA Albuterol Inhaler [Ventolin Hfa Inhaler] 2 puff INHALATION RT-QID PRN PRN Reason: Shortness Of Breath Furosemide [Lasix] 20 mg PO DAILY Nitroglycerin Sl Tabs [Nitrostat] 0.4 mg SL Q5M PRN PRN Reason: Chest Pain Ondansetron Odt [Zofran ODT] 8 mg PO Q8HR PRN PRN Reason: Nausea Acetaminophen Tab [Tylenol] 325 mg PO Q6H PRN #6 tab PRN Reason: Pain Discontinued Dicyclomine [Bentyl] 10 mg PO TID PRN PRN Reason: IBS lisinopriL [Zestril] 10 mg PO DAILY Cyclobenzaprine [Flexeril] 10 mg PO TID PRN 30 Days #90 tab PRN Reason: Muscle Spasm Fexofenadine HCl [Cynthia Allergy] 180 mg PO DAILY PRN PRN Reason: Allergy Symptoms Discharge Medication List Metoprolol Succinate (ER) [Toprol XL] 100 mg PO DAILY 08/01/18 [History] Pantoprazole Sodium [Protonix] 80 mg PO DAILY 08/01/18 [History] Diphenoxylate HCl/Atropine [Lomotil 2.5-0.025 mg Tablet] 1 tab PO Q6H PRN 03/31/20 [History] Cyanocobalamin [Vitamin B-12 Injection] 1,000 mcg SQ SA 03/01/22 [History] Albuterol Inhaler [Ventolin Hfa Inhaler] 2 puff INHALATION RT-QID PRN 07/04/22 [History] Lidocaine/Menthol [Lidocaine-Menthol 4%-1% Patch] 1 patch TRANSDERM DAILY PRN 09/13/22 [History] Furosemide [Lasix] 20 mg PO DAILY 11/30/22 [History] Nitroglycerin Sl Tabs [Nitrostat] 0.4 mg SL Q5M PRN 11/30/22 [History] Potassium Chloride ER [K-Dur 20] 40 meq PO DAILY 11/30/22 [History] SUMAtriptan succinate [Imitrex] 100 mg PO BID PRN 11/30/22 [History] Ondansetron Odt [Zofran ODT] 8 mg PO Q8HR PRN 02/11/23 [History] Acetaminophen Tab [Tylenol] 325 mg PO Q6H PRN #6 tab 02/14/23 [Rx] HYDROcodone/APAP 7.5-325MG [Aldrich 7.5-325] 1 tab PO Q6HR PRN 3 Days #12 tab 04/17/23 [Rx] Follow up Appointment(s)/Referral(s): Bia May MD [Primary Care Provider] - 1 Week [facility] Visiting Nurse, [NON-STAFF] - 1 Week (Agency will call between 24 and 48 hours to arrange a visit. ) Giovani Artis MD [STAFF PHYSICIAN] - 04/19/23 12:10 pm Ambulatory/Diagnostic Orders: Basic Metabolic Panel [LAB.AMB] Time Frame: 3 Days, Location: None Selected Patient Instructions/Handouts: Hydrocodone/Acetaminophen (By mouth), Aime- Duron Drain Care (DC), Open Herniorrhaphy (DC), Basic Metabolic Panel (GEN) Activity/Diet/Wound Care/Special Instructions: No driving while taking Aldrich No lifting over 10 pounds You may shower. No soaking or tub baths for 2 weeks Very light activity until you are reevaluated at your follow up appointment with your surgeon Keep Prevana wound vac in place until seen by surgeon Keep a log of NORI drain output and bring with you to your follow-up appointment Milk/strip drains 2-3 times a day Monitor blood pressure at home and continue to hold lasix if BP is above 130 systolic OK to resume lisinopril. Repeat labs in 2 to 3 days. Discharge Disposition: HOME WITH HOME HEALTH SERVICES
--- NOTE | 2023-04-17 15:14 | P.PN ---
Subjective Progress Note Date: 04/17/23 Patient is evaluated today on medical floor she is postoperative day #3 open repair of incarcerated incisional hernia with mesh. NORI drain remains in place with serosangueinous drainage, documented as 120 mls overnight. Abdominal binder in place. Continues with significant abdominal pain on oral norco and IV diluadid. She has had bowel movement since surgery and diet has been advanced to low fiber. Blood pressure low normal. 90-110 systolic. Sodium 140, BUN 5.3, creatinine 0.5. Glucose 117. 04/17/2023 Patient is evaluated today resting in bed. Tolerating regular diet had bowel movement. Postoperative day #4 open repair of incarcerated incisional hernia with mesh. NORI drain in place. Prevena pump to midline abominal incision intact. Patient remains low normal 100s systolic, recommending to hold off on lisinopril on discharge and monitor blood pressure closely at home. Review of Systems Constitutional: Denied any fatigue denied any fever. Cardio vascular: denied any chest pain, palpitations Gastrointestinal: denied any nausea, vomiting, diarrhea Pulmonary: Denied any shortness of breath cough Neurologic denied any new focal deficits All inpatient medications were reviewed and appropriate changes in these medications as dictated in the interval history and assessment and plan. PHYSICAL EXAMINATION: GENERAL: The patient is alert and oriented x3, not in any acute distress. Well developed, well nourished. HEENT: Pupils are round and equally reacting to light. EOMI. No scleral icterus. No conjunctival pallor. Normocephalic, atraumatic. No pharyngeal erythema. No thyromegaly. CARDIOVASCULAR: S1 and S2 present. No murmurs, rubs, or gallops. PULMONARY: Chest is clear to auscultation, no wheezing or crackles. ABDOMEN: Soft, nontender, nondistended, normoactive bowel sounds. No palpable organomegaly. Post surgical, NORI drain in place. MUSCULOSKELETAL: No joint swelling or deformity. EXTREMITIES: No cyanosis, clubbing, or pedal edema. NEUROLOGICAL: Gross neurological examination did not reveal any focal deficits. SKIN: No rashes. Assessment and Plan -Incarcerated incisional hernia; Patient is status post open repair with mesh; POD #4 continue with IV and PO pain managment, NORI drain remains in place. Diet has been advanced. Patient will be discharged home today with NORI drain and prevana wound vac in place. Patient to discharge with oral pain medication. -Hypertension; Currently normotensive lisinopril discontinued due to systolic BP dropping into the 90s continues on metoprolol. Recommending to hold off lisinopril on discharge and monitor blood pressure at home. Ok to resume once systolic BP greater than 130s systolic. -CAD/CHF; metoprolol 100 mg daily; Lasix 20 mg daily -Gastroesophageal reflux disease; Protonix 80 mg daily DVT prophylaxis; SCDs/subcu Lovenox CODE STATUS; full code Medically patient is stable for discharge home. Patient to follow up closely with PCP and general surgery. [facility] homecare referral given on discharge. Patient to repeat a BMP in 2 to 3 days. Continue with incentive spirometer. The impression and plan of care has been dictated by Irlanda Al Nurse Practitioner as directed. Dr. Ramila MD I have performed a history and physical examination and medical decision making of this patient, discussed the same with the dictator, and agree with the dictators assessment and plan as written, documented as a scribe. Based on total visit time, I have performed more than 50% of this visit. Objective - Vital Signs Vital signs: Vital Signs Temp 98 F 04/17/23 07:39 Pulse 98 04/17/23 07:39 Resp 17 04/17/23 07:39 BP 106/72 04/17/23 07:39 Pulse Ox 96 04/17/23 07:39 FiO2 Intake & Output 04/16/23 04/17/23 04/17/23 18:59 06:59 18:59 Intake Total 120 Output Total 40 10 Balance -40 110 Intake: Oral 120 Output: Drainage 40 10 Anterior Medial Abdomen 40 10 Other: Voiding Method Toilet Toilet Toilet # Voids 2 - Labs CBC & Chem 7: 04/15/23 05:55 04/16/23 05:36 Assessment and Plan Time with Patient: Less than 30
== END 2023-04-17 14:43 | disposition home health service (06) ==
LOC: OR 05:33 → 5NMEDONC 08:23
PROVIDERS: ADMIT Surgery; ATTEND Surgery
DX: K43.0 Incisional hernia with obstruction, without gangrene (principal); K66.0 Peritoneal adhesions (postprocedural) (postinfection); I11.0 Hypertensive heart disease with heart failure; I50.9 Heart failure, unspecified; J44.9 Chronic obstructive pulmonary disease, unspecified; K21.9 Gastro-esophageal reflux disease without esophagitis; K90.829 Short bowel syndrome, unspecified; G40.909 Epilepsy, unspecified, not intractable, without status epilepticus; H91.90 Unspecified hearing loss, unspecified ear; I25.2 Old myocardial infarction; I49.5 Sick sinus syndrome; M19.90 Unspecified osteoarthritis, unspecified site; N28.1 Cyst of kidney, acquired; J30.2 Other seasonal allergic rhinitis; F41.9 Anxiety disorder, unspecified; F32.A Depression, unspecified; Z79.899 Other long term (current) drug therapy; Z88.0 Allergy status to penicillin; Z88.5 Allergy status to narcotic agent; Z88.8 Allergy status to other drugs, medicaments and biological substances; Z87.442 Personal history of urinary calculi; Z86.73 Personal history of transient ischemic attack (TIA), and cerebral infarction without residual deficits; Z86.718 Personal history of other venous thrombosis and embolism; Z86.14 Personal history of Methicillin resistant Staphylococcus aureus infection; Z90.49 Acquired absence of other specified parts of digestive tract; Z90.710 Acquired absence of both cervix and uterus; Z90.13 Acquired absence of bilateral breasts and nipples; Z80.1 Family history of malignant neoplasm of trachea, bronchus and lung; Z80.51 Family history of malignant neoplasm of kidney; Z80.42 Family history of malignant neoplasm of prostate
CPT/HCPCS: 96372 ×4; 80048 ×2; 85025; 49594; G0378 ×2; C1781; J2250; J1100; J2710; J0690; J2405 ×3; J2001; J1650 ×4; J3010; J1885; J2704; J1170 ×5; J0665

== ENCOUNTER 2023-04-29 21:14 | Emergency (ER) | payer MEDICARE, OTHER ==
[2023-04-29] MEDS ORDERED: KETOROLAC 15 MG/ML 1 ML VIAL IVP STA (21:37)
--- NOTE | 2023-04-29 21:37 | ED ---
General Adult HPI - General Chief complaint: Recheck/Abnormal Lab/Rx Stated complaint: Post Op Drainage tube complication Time Seen by Provider: 04/29/23 21:17 Source: EMS Mode of arrival: EMS Limitations: no limitations - History of Present Illness Initial comments: This patient is a 68-year-old woman who presents to have evaluation because she has noted decreased drainage from a right upper abdominal NORI drain. She states she had surgery on April 13, Dr. Artis, had performed hernia repair. She states that over the course of today she has had less than the usual drainage. She had a family member "strip the tube" and the output did not change. She is concerned there may be a blockage in the tube. She has not noted fever or chills. No nausea or vomiting. No change in her abdomen. -: hour(s) Location: abdomen Consistency: constant Improves with: none Worsens with: none Associated Symptoms: denies other symptoms Treatments Prior to Arrival: none - Related Data Home Medications Medication Instructions Recorded Confirmed Metoprolol Succinate (ER) [Toprol 100 mg PO DAILY 08/01/18 05/09/23 XL] Pantoprazole Sodium [Protonix] 80 mg PO DAILY 08/01/18 05/09/23 Diphenoxylate HCl/Atropine 1 tab PO Q6H PRN 03/31/20 05/09/23 [Lomotil 2.5-0.025 mg Tablet] Cyanocobalamin [Vitamin B-12 1,000 mcg IM SA 03/01/22 05/09/23 Injection] Albuterol Inhaler [Ventolin Hfa 2 puff INHALATION RT-QID PRN 07/04/22 05/09/23 Inhaler] Lidocaine/Menthol 1 patch TRANSDERM DAILY PRN 09/13/22 05/09/23 [Lidocaine-Menthol 4%-1% Patch] Furosemide [Lasix] 20 mg PO DAILY 11/30/22 05/09/23 Nitroglycerin Sl Tabs [Nitrostat] 0.4 mg SL Q5M PRN 11/30/22 05/09/23 Potassium Chloride ER [K-Dur 20] 40 meq PO DAILY 11/30/22 05/09/23 SUMAtriptan succinate [Imitrex] 100 mg PO BID PRN 11/30/22 05/09/23 Ondansetron Odt [Zofran ODT] 8 mg PO Q8HR PRN 02/11/23 05/09/23 Aspirin EC [Ecotrin Low Dose] 81 mg PO DAILY 05/03/23 05/09/23 Cyclobenzaprine [Flexeril] 10 mg PO TID PRN 05/03/23 05/09/23 Ibuprofen [Motrin] 800 mg PO Q8H PRN 05/03/23 05/09/23 guaiFENesin [Mucinex] 600 mg PO DIRECTED PRN 05/03/23 05/09/23 Previous Rx's Medication Instructions Recorded Acetaminophen Tab [Tylenol] 325 mg PO Q6H PRN #6 tab 02/14/23 Cephalexin [Keflex] 500 mg PO Q6HR #20 cap 04/30/23 Ketorolac [Toradol] 10 mg PO Q6HR PRN #15 tab 05/10/23 Allergies Allergy/AdvReac Type Severity Reaction Status Date / Time Penicillins Allergy Anaphylaxis Verified 05/09/23 06:34 phenobarbital Allergy Rash/Hives Verified 05/09/23 06:34 phenytoin [From Dilantin] Allergy Anaphylaxis Verified 05/09/23 06:34 carbamazepine [From Tegretol] AdvReac increases Verified 05/09/23 06:34 seizures Review of Systems ROS Statement: Those systems with pertinent positive or pertinent negative responses have been documented in the HPI. ROS Other: All systems not noted in ROS Statement are negative. 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 She also has renal cysts/stone, 1979's SSS, short gut syndrome, hx. of aoustic neuroma left ear Last Myocardial Infarction Date:: 1997 History of Any Multi-Drug Resistant Organisms: MRSA Date of last positivie culture/infection: 2003 MDRO Source:: lt hip Past Surgical History: Appendectomy, Back Surgery, Bowel Resection, Breast Surgery, Cholecystectomy, Hernia Repair, Hysterectomy, Orthopedic Surgery, Tonsillectomy Additional Past Surgical History / Comment(s): earnest mastectomy, oopherectomy back surgery x5 with last sx cage in back, bowel resection x5-6, earnest. carpal tunnel, lt rotator cuff repair, incisional hernia repair 04/13/23 Past Anesthesia/Blood Transfusion Reactions: Previous Problems w/ Anesthesia Additional Past Anesthesia/Blood Transfusion Reaction / Comment(s): experiences anxiety prior to surgery and agitiation. b/p elevates during surgery. woke up during surgery. Very difficult IV start Past Psychological History: Anxiety, Depression Smoking Status: Never smoker Past Alcohol Use History: Rare Past Drug Use History: None Reported - Past Family History Mother Family Medical History: Cancer Additional Family Medical History / Comment(s): Lung cancer. Father Family Medical History: Cancer Additional Family Medical History / Comment(s): kidney cancer Brother(s) Family Medical History: Cancer Additional Family Medical History / Comment(s): Lung cancer with metastasis. General Exam Limitations: no limitations General appearance: alert, in no apparent distress Head exam: Present: atraumatic, normocephalic Eye exam: Present: normal appearance. Absent: scleral icterus, conjunctival injection Neck exam: Present: normal inspection Respiratory exam: Present: normal lung sounds bilaterally. Absent: respiratory distress, wheezes, rales, rhonchi, stridor Cardiovascular Exam: Present: regular rate, normal rhythm, normal heart sounds. Absent: systolic murmur, diastolic murmur, rubs, gallop GI/Abdominal exam: Present: soft, other (Midline incision with staple closure is clean dry and intact, there is no abnormal erythema, warmth, drainage. There is a Aime-D[place] drain in the right upper quadrant which has a normal postsurgical appearance.). Absent: distended, tenderness, guarding, rebound, rigid, mass Extremities exam: Present: normal inspection, normal capillary refill. Absent: pedal edema, calf tenderness Back exam: Present: normal inspection. Absent: CVA tenderness (R), CVA tenderness (L) Neurological exam: Present: alert Skin exam: Present: warm, dry, intact, normal color. Absent: rash Course Vital Signs 04/29/23 04/29/23 04/30/23 21:19 23:00 01:38 Temperature 97.1 F L 98.5 F Pulse Rate 107 H 88 100 Respiratory 18 18 18 Rate Blood Pressure 112/78 119/89 109/66 O2 Sat by Pulse 95 97 96 Oximetry Medical Decision Making - Medical Decision Making Was pt. sent in by a medical professional or institution (, PA, GRAPHIC DESIGN MANAGER, urgent care, hospital, or long-term...) When possible be specific @ -[No] Did you speak to anyone other than the patient for history (EMS, parent, family, police, friend...)? What history was obtained from this source @ -[No] Did you review nursing and triage notes (agree or disagree)? Why? @ -[I reviewed and agree with nursing and triage notes] Were old charts reviewed (outside hosp., previous admission, EMS record, old EKG, old radiological studies, urgent care reports/EKG's, long-term records)? Report findings @ -[No old charts were reviewed] Differential Diagnosis (chest pain, altered mental status, abdominal pain women, abdominal pain men, vaginal bleeding, weakness, fever, dyspnea, syncope, headache, dizziness, GI bleed, back pain, seizure, CVA, palpatations, mental health, musculoskeletal)? @ -[Differential Abdominal Pain Women: Appendicitis, Cholecystitis, diverticulosis, ischemic bowel, pancreatitis, hepatitis, UTI, gastroenteritis, AAA, incarcerated hernia, bowel obstruction, constipation, inflammatory bowel, hepatitis, peptic ulcer disease, splenic infarction, perforated viscus, vulvitis, ovarian torsion, PID, kidney stone, placenta abruption, this is not meant to be an all-inclusive list EKG interpreted by me (3pts min.). @ -[As above] X-rays interpreted by me (1pt min.). @ -[None done] CT interpreted by me (1pt min.). @ -[None done] U/S interpreted by me (1pt. min.). @ -[None done] What testing was considered but not performed or refused? (CT, X-rays, U/S, labs)? Why? @ -[None] What meds were considered but not given or refused? Why? @ -[None] Did you discuss the management of the patient with other professionals (professionals i.e. , PA, GRAPHIC DESIGN MANAGER, lab, RT, psych nurse, social professionals, ramp and cargo supervisor, teacher, budget officer, case fitter)? Give summary @ -[No] Was smoking cessation discussed for >3mins.? @ -[No] Was critical care preformed (if so, how long)? @ -[No] Were there social determinants of health that impacted care today? How? (Homelessness, low income, unemployed, alcoholism, drug addiction, transportation, low edu. Level, literacy, decrease access to med. care, assisted, rehab)? @ -[No] Was there de-escalation of care discussed even if they declined (Discuss DNR or withdrawal of care, Hospice)? DNR status @ -[No] What co-morbidities impacted this encounter? (DM, HTN, Smoking, COPD, CAD, Cancer, CVA, ARF, Chemo, Hep., AIDS, mental health diagnosis, sleep apnea, morbid obesity)? @ -[None] Was patient admitted / discharged? Hospital course, mention meds given and route, prescriptions, significant lab abnormalities, going to OR and other pertinent info. @ -[Patient is 68-year-old woman here with abdominal pain. Evaluation of the patient's surgical drain does not reveal any evident complication. There is a trace amount of serosanguineous drainage in the tube. There is no evidence of infection on exam. Undiagnosed new problem with uncertain prognosis? @ -[No] Drug Therapy requiring intensive monitoring for toxicity (Heparin, Nitro, Insulin, Cardizem)? @ -[No] Were any procedures done? @ -[No] Diagnosis/symptom? @ -[Acute urinary tract infection Acute, or Chronic, or Acute on Chronic? @ -[default] Uncomplicated (without systemic symptoms) or Complicated (systemic symptoms)? @ -[Uncomplicated Side effects of treatment? @ -[No] Exacerbation, Progression, or Severe Exacerbation? @ -[No] Poses a threat to life or bodily function? How? (Chest pain, USA, UT, pneumonia, PE, COPD, DKA, ARF, appy, cholecystitis, CVA, Diverticulitis, Homicidal, Suicidal, threat to staff... and all critical care pts) @ -[No] - Lab Data Result diagrams: 04/29/23 22:20 04/29/23 22:20 Lab Results 04/29/23 04/29/23 04/29/23 Range/Units 22:20 22:20 22:38 WBC 5.0 (3.8-10.6) k/uL RBC 4.27 (3.80-5.40) m/uL Hgb 12.4 (11.4-16.0) gm/dL Hct 38.0 (34.0-46.0) % MCV 88.9 (80.0-100.0) fL MCH 29.0 (25.0-35.0) pg MCHC 32.7 (31.0-37.0) g/dL RDW 14.1 (11.5-15.5) % Plt Count 154 (150-450) k/uL MPV 8.2 Neutrophils % 57 % Lymphocytes % 27 % Monocytes % 8 % Eosinophils % 4 % Basophils % 1 % Neutrophils # 2.9 (1.3-7.7) k/uL Lymphocytes # 1.4 (1.0-4.8) k/uL Monocytes # 0.4 (0-1.0) k/uL Eosinophils # 0.2 (0-0.7) k/uL Basophils # 0.0 (0-0.2) k/uL Sodium 139 (137-145) mmol/L Potassium 5.3 H (3.5-5.1) mmol/L Chloride 108 H (98-107) mmol/L Carbon Dioxide 19 L (22-30) mmol/L Anion Gap 12 mmol/L BUN 16 (7-17) mg/dL Creatinine 0.57 (0.52-1.04) mg/dL Est GFR (CKD-EPI)AfAm >90 (>60 ml/min/1.73 sqM) Est GFR (CKD-EPI)NonAf >90 (>60 ml/min/1.73 sqM) Glucose 86 (74-99) mg/dL Calcium 9.2 (8.4-10.2) mg/dL Total Bilirubin 0.9 (0.2-1.3) mg/dL AST 60 H (14-36) U/L ALT 35 H (4-34) U/L Alkaline Phosphatase 92 (38-126) U/L C-Reactive Protein 0.7 (<1.0) mg/dL Total Protein 7.6 (6.3-8.2) g/dL Albumin 4.5 (3.5-5.0) g/dL Amylase 63 (30-110) U/L Lipase 85 (23-300) U/L Urine Color Light Yellow Urine Appearance Cloudy H (Clear) Urine pH 5.5 (5.0-8.0) Ur Specific [place] 1.019 (1.001-1.035) Urine Protein Trace H (Negative) Urine Glucose (UA) Negative (Negative) Urine Ketones Negative (Negative) Urine Blood Negative (Negative) Urine Nitrite Positive H (Negative) Urine Bilirubin Negative (Negative) Urine Urobilinogen <2.0 (<2.0) mg/dL Ur Leukocyte Esterase Large H (Negative) Urine RBC 3 (0-5) /hpf Urine WBC 105 H (0-5) /hpf Urine WBC Clumps Few H (None) /hpf Ur Squamous Epith Cells 1 (0-4) /hpf Urine Bacteria Many H (None) /hpf Hyaline Casts 1 (0-2) /lpf Urine Mucus Few H (None) /hpf Disposition Clinical Impression: UTI (urinary tract infection) Disposition: HOME SELF-CARE Condition: Good Instructions (If sedation given, give patient instructions): Urinary Tract Infection in Women (ED) Prescriptions: Cephalexin [Keflex] 500 mg PO Q6HR #20 cap Is patient prescribed a controlled substance at d/c from ED?: No Referrals: Bia May MD [Primary Care Provider] - 1-2 days
[2023-04-29 21:56] VITALS: RESP 18
[2023-04-29 22:28] LABS: Basophils % (A) 1 %; Eosinophils # (A) 0.2 k/uL (0-0.7); Eosinophils % (A) 4 %; HGB 12.4 gm/dL (11.4-16.0); Lymphocytes # (A) 1.4 k/uL (1.0-4.8); Lymphocytes % (A) 27 %; MCHC 32.7 g/dL (31.0-37.0); MCV 88.9 fL (80.0-100.0); Mean Platelet Volume 8.2; Monocytes # (A) 0.4 k/uL (0-1.0); Monocytes % (A) 8 %; Neutrophils # (A) 2.9 k/uL (1.3-7.7); Neutrophils % (A) 57 %; Platelet Count 154 k/uL (150-450); RBC 4.27 m/uL (3.80-5.40); RDW 14.1 % (11.5-15.5)
[2023-04-29 22:49] LABS: ALT 35 U/L (4-34); African American GFR (CKD) >90 (>60 ml/min/1.73 sqM); Amylase 63 U/L (30-110); Anion Gap 12 mmol/L; Blood Urea Nitrogen 16 mg/dL (7-17); C Reactive Protein 0.7 mg/dL (<1.0); Calcium 9.2 mg/dL (8.4-10.2); Carbon Dioxide 19 mmol/L (22-30); Chloride 108 mmol/L (98-107); Glucose 86 mg/dL (74-99); Lipase 85 U/L (23-300); Non-African American GFR(CKD) >90 (>60 ml/min/1.73 sqM); Sodium 139 mmol/L (137-145)
[2023-04-29 22:49] LABS: Appearance,Urine Cloudy (Clear); Bacteria,Urine Many /hpf; Bilirubin,Urine Negative (Negative); Blood,Urine Negative (Negative); Color,Urine Light Yellow; Glucose,Urine (UA) Negative (Negative); Hyaline Casts,Urine 1 /lpf (0-2); Ketones,Urine Negative (Negative); Leukocyte Esterase,Urine Large (Negative); Mucus,Urine Few /hpf; Nitrite,Urine Positive (Negative); PH, Urine 5.5 (5.0-8.0); Protein,Urine Trace (Negative); RBC,Urine 3 /hpf (0-5); Specific Gravity,Urine 1.019 (1.001-1.035); Squamous Epithelial Cell,Urine 1 /hpf (0-4); Urobilinogen,Urine <2.0 mg/dL (<2.0); WBC,Urine 105 /hpf (0-5)
[2023-04-29 22:57] LABS: Potassium 5.3 mmol/L (3.5-5.1)
[2023-04-29 22:58] LABS: AST 60 U/L (14-36); Albumin 4.5 g/dL (3.5-5.0); Alkaline Phosphatase 92 U/L (38-126); Total Bilirubin 0.9 mg/dL (0.2-1.3); Total Protein 7.6 g/dL (6.3-8.2)
[2023-04-29] MEDS ORDERED: cefTRIAXone IN SWFI 1,000 MG/10 ML SYRINGE IVP STA (23:35)
[2023-04-30] MEDS ORDERED: MORPHINE SULFATE 4 MG/ML SYRINGE IV STA (00:03)
[2023-04-30] MEDS ORDERED: ONDANSETRON 4 MG/2 ML VIAL IVP STA (00:03)
[2023-04-30 01:49] VITALS: BP 109/66; PULSE 100; TEMP 98.5
== END 2023-04-30 01:51 | disposition home or self-care (01) ==
LOC: EC 21:14
DX: N39.0 Urinary tract infection, site not specified (principal); B97.0 Adenovirus as the cause of diseases classified elsewhere; I11.0 Hypertensive heart disease with heart failure; I25.10 Atherosclerotic heart disease of native coronary artery without angina pectoris; I25.2 Old myocardial infarction; I50.9 Heart failure, unspecified; J44.9 Chronic obstructive pulmonary disease, unspecified; K21.9 Gastro-esophageal reflux disease without esophagitis; M19.90 Unspecified osteoarthritis, unspecified site; Z79.82 Long term (current) use of aspirin; Z79.899 Other long term (current) drug therapy; Z88.0 Allergy status to penicillin; Z88.8 Allergy status to other drugs, medicaments and biological substances; Z90.49 Acquired absence of other specified parts of digestive tract
CPT/HCPCS: 99284 ×2; 96374 ×2; 96375 ×4; 36415; 80053; 82150; 83690; 85025; 86140; 81001; 87086; 87077; 87186; J2270; J2405; J0696; J1885

== ENCOUNTER → 2023-05-01 | Outpatient (CLI) | payer MEDICARE, OTHER ==
[2023-05-01 15:18] LABS: Chol/HDL Ratio 5.2 Ratio; HDL Cholesterol 33.1 mg/dL (40.00-60.00); VLDL Calculation 94.4 mg/dL (5.00-40.00)
[2023-05-01 15:27] LABS: Appearance,Urine Clear (Clear); Bilirubin,Urine Negative (Negative); Blood,Urine Negative (Negative); Color,Urine Yellow (Yellow); Ketones,Urine Negative (Negative); Nitrite,Urine Negative (Negative); PH, Urine 5.5; Specific Gravity,Urine 1.023 (1.001-1.030); Urobilinogen,Urine 0.2 E.U./DL
[2023-05-01 15:29] LABS: LDL Cholesterol,Direct Reflex 77.3 mg/dL (0.00-129.00)
[2023-05-01 15:35] LABS: Basophils # (A) 0.04 X 10*3/uL (0.00-0.10); Basophils % (A) 0.8 %; Eosinophils # (A) 0.29 X 10*3/uL (0.04-0.35); HCT 36.6 % (37.2-46.3); HGB 11.5 g/dL (12.0-15.0); Lymphocytes # (A) 1.28 X 10*3/uL (0.90-5.00); Lymphocytes % (A) 26.3 %; MCH 28.9 pg (27.0-32.0); MCHC 31.4 g/dL (32.0-37.0); Mean Platelet Volume 9.9 FL (9.5-12.2); Monocytes # (A) 0.54 X 10*3/uL (0.20-1.00); Monocytes % (A) 11.1 %; NRBC Per 100 WBC 0 X 10*3/uL (0.00-0.01); Neutrophils # (A) 2.66 X 10*3/uL (1.80-7.70); Neutrophils % (A) 54.8 %; Platelet Count 286 X 10*3/uL (140-440); RBC 3.98 X 10*6/uL (4.10-5.20); WBC 4.86 X 10*3/uL (4.50-10.00)
== END | disposition home or self-care (01) ==
LOC: LABPAT 08:15
PROVIDERS: ATTEND Urology
DX: Z01.812 Encounter for preprocedural laboratory examination (principal); I50.9 Heart failure, unspecified; N20.0 Calculus of kidney; R31.29 Other microscopic hematuria
CPT/HCPCS: 80061; 81003; 83721; 85025; 86850; 86870; 86880; 86900; 86901; 87086

== ENCOUNTER 2023-05-09 05:36 | Observation (INO) | payer MEDICARE, OTHER ==
--- NOTE | 2023-05-08 20:23 | P.GSHP ---
History of Present Illness H&P Date: 05/08/23 68 female referred to me with left back pain.. Evaluation identified a large[>2cm] stone in the upper pole of the left kidney. She was given treatment options and thus comes for a pcnl left. She has had a klebsiella uti and is on appropriate antibiotics. She understands the stone may be infected. - Constitutional Constitutional: Denies chills, Denies fever - EENT Eyes: denies blurred vision, denies pain Ears, nose, mouth and throat: Denies headache, Denies sore throat - Cardiovascular Cardiovascular: Denies chest pain, Denies shortness of breath - Respiratory Respiratory: Denies cough, Denies 7 - Gastrointestinal Gastrointestinal: Denies abdominal pain, Denies diarrhea, Denies nausea, Denies vomiting - Genitourinary (Female) Genitourinary: Denies dysuria, Denies hematuria - Genitourinary (Male) Genitourinary: Denies dysuria, Denies hematuria - Musculoskeletal Musculoskeletal: Denies myalgias - Integumentary Integumentary: Denies pruritus, Denies rash - Neurological Neurological: Denies numbness, Denies weakness - Psychiatric Psychiatric: Denies anxiety, Denies depression - Endocrine Endocrine: Denies fatigue, Denies weight change Past Medical History Past Medical History: Coronary Artery Disease (CAD), Cancer, Heart Failure, COPD, CVA/TIA, Deep Vein Thrombosis (DVT), GERD/Reflux, Hearing Disorder / Deafness, Hypertension, Myocardial Infarction (SD), Neurologic Disorder, Osteoarthritis (OA), Seizure Disorder Additional Past Medical History / Comment(s): History of bilateral breast cancer, ovarian cancer, uterine cancer, history of CVA (rt eye droops when smiling) back in 1982, history of irregular heart rate possibly atrial fibrillation many years back, history of occasional petit mal seizures last 10/2022 (grand mal seizures but none in decades), , previous SD, history of DVT, multiple bowel obstruction requiring previous abdominal surgeries and bowel resection. She also has renal cysts/stone, SSS, short gut syndrome, hx. of aoustic neuroma left ear. heart races with stress. being tx for UTI . kidney stones, sinus issues and congestion Last Myocardial Infarction Date:: 1997 History of Any Multi-Drug Resistant Organisms: MRSA Date of last positivie culture/infection: 2003 MDRO Source:: lt hip Past Surgical History: Appendectomy, Back Surgery, Bowel Resection, Breast Surgery, Cholecystectomy, Hernia Repair, Hysterectomy, Orthopedic Surgery, Tonsillectomy Additional Past Surgical History / Comment(s): earnest mastectomy, oopherectomy back surgery x5 with last sx cage in back, bowel resection x5-6, earnest. carpal tunnel, lt rotator cuff repair, incisional hernia repair 04/13/23 Past Anesthesia/Blood Transfusion Reactions: Previous Problems w/ Anesthesia, Family History of Problems w/ Anesthesia Additional Past Anesthesia/Blood Transfusion Reaction / Comment(s): experiences anxiety prior to surgery and agitiation. b/p elevates during surgery. woke up during surgery. Very difficult IV start. granddaughter coded during anesthesia @ 7yrs old (years ago) Smoking Status: Never smoker - Past Family History Mother Family Medical History: Cancer Additional Family Medical History / Comment(s): Lung cancer. Father Family Medical History: Cancer Additional Family Medical History / Comment(s): kidney cancer Brother(s) Family Medical History: Cancer Additional Family Medical History / Comment(s): Lung cancer with metastasis. smoker Medications and Allergies Home Medications Medication Instructions Recorded Confirmed Type Metoprolol Succinate (ER) [Toprol 100 mg PO DAILY 08/01/18 05/03/23 History XL] Pantoprazole Sodium [Protonix] 80 mg PO DAILY 08/01/18 05/03/23 History Diphenoxylate HCl/Atropine 1 tab PO Q6H PRN 03/31/20 05/03/23 History [Lomotil 2.5-0.025 mg Tablet] Cyanocobalamin [Vitamin B-12 1,000 mcg IM SA 03/01/22 05/03/23 History Injection] Albuterol Inhaler [Ventolin Hfa 2 puff INHALATION RT-QID PRN 07/04/22 05/03/23 History Inhaler] Lidocaine/Menthol 1 patch TRANSDERM DAILY PRN 09/13/22 05/03/23 History [Lidocaine-Menthol 4%-1% Patch] Furosemide [Lasix] 20 mg PO DAILY 11/30/22 05/03/23 History Nitroglycerin Sl Tabs [Nitrostat] 0.4 mg SL Q5M PRN 11/30/22 05/03/23 History Potassium Chloride ER [K-Dur 20] 40 meq PO DAILY 11/30/22 05/03/23 History SUMAtriptan succinate [Imitrex] 100 mg PO BID PRN 11/30/22 05/03/23 History Ondansetron Odt [Zofran ODT] 8 mg PO Q8HR PRN 02/11/23 05/03/23 History Acetaminophen Tab [Tylenol] 325 mg PO Q6H PRN #6 tab 02/14/23 05/03/23 Rx Cephalexin [Keflex] 500 mg PO Q6HR #20 cap 04/30/23 05/03/23 Rx Aspirin EC [Ecotrin Low Dose] 81 mg PO DAILY 05/03/23 05/03/23 History Cyclobenzaprine [Flexeril] 10 mg PO TID PRN 05/03/23 05/03/23 History Ibuprofen [Motrin] 800 mg PO Q8H PRN 05/03/23 05/03/23 History guaiFENesin [Mucinex] 600 mg PO DIRECTED PRN 05/03/23 05/03/23 History Allergies Allergy/AdvReac Type Severity Reaction Status Date / Time Penicillins Allergy Anaphylaxis Verified 05/03/23 10:27 phenobarbital Allergy Rash/Hives Verified 05/03/23 10:27 phenytoin [From Dilantin] Allergy Anaphylaxis Verified 05/03/23 10:27 carbamazepine [From Tegretol] AdvReac increases Verified 05/03/23 10:27 seizures morphine AdvReac Itching Verified 05/03/23 10:27 Surgical - Exam - General well developed, well nourished, no distress - Eyes normal ocular movement, no icteric - ENT no hearing loss, no congestion - Neck no masses, trachea midline - Respiratory normal respiratory effort, clear to auscultation - Abdomen Abdomen: soft, non tender, no guarding, no rigid, no rebound - Integumentary no rash, no abnormal pigmentation - Neurologic no disoriented, no combative - Psychiatric oriented to time, oriented to person, oriented to place, speech is normal, memory intact Results - Imaging CT scan - abdomen: report reviewed, image reviewed CT scan - pelvis: report reviewed, image reviewed Assessment and Plan Assessment: Impression: left renal stone, large. Multiple medical illnesses Plan: pcnl left
[~2023-05-09 05:36] MED LIST changes: -ACETAMINOPHEN TAB 500 MG TAB PO PRN; -HEPARIN SODIUM,PORCINE/PF 5,000 UNIT/0.5 ML SYRINGE SQ PRN; +LIDOCAINE 1% (10MG/ML) FOR IV START INTRADERMA PRN
--- NOTE | 2023-05-09 06:20 | XR ---
EXAMINATION TYPE: XR KUB DATE OF EXAM: 05/09/2023 6:11 AM CLINICAL HISTORY: Left-sided renal stone. TECHNIQUE: Single supine KUB image of the abdomen is obtained obtained. COMPARISON: Prior abdominal x-ray December 01, 2022 FINDINGS: Persistent roughly 2.0 cm left-sided staghorn type calculus projecting over the left 12th r ib at L2 level. Overall nonobstructive bowel gas pattern. Surgical change at the lumbosacral junction is redemonstrat ed. Dystrophic calcifications or ossifications over the iliac crests bilaterally are redemonstrated. IMPRESSION: As above.
[2023-05-09] MEDS: LACTATED RINGERS 1,000 ML IV SCH (06:48)
[2023-05-09] MEDS: DEXAMETHASONE SOD PHOSPHATE 4 MG/ML 1 ML VIAL IVP ONE (07:28)
[2023-05-09] MEDS: MIDAZOLAM 2 MG/2 ML VIAL IVP ONE (07:28)
[2023-05-09] MEDS: ONDANSETRON 4 MG/2 ML VIAL IVP ONE ×2 (07:28→14:52)
[2023-05-09] MEDS: GENTAMICIN 80 MG in SODIUM CHLORIDE 0.9% 100 ML IVPB PRN (07:40)
[2023-05-09] MEDS: IOPAMIDOL-370 100ML BTL INJ ONE (08:26)
[2023-05-09] MEDS ORDERED: PROPOFOL 10 MG/ML 20 ML VIAL IV ONE (08:44)
[2023-05-09] MEDS ORDERED: SUCCINYLCHOLINE CHLORIDE 200 MG/10 ML VIAL IV ONE (08:44)
[2023-05-09] MEDS ORDERED: fentaNYL (PF) 50 MCG/ML 2 ML AMP ONE (08:44)
[2023-05-09] MEDS ORDERED: MIDAZOLAM 2 MG/2 ML VIAL ONE (08:44)
[2023-05-09] MEDS ORDERED: CYCLOBENZAPRINE 10 MG TAB PO PRN (09:24)
[2023-05-09] MEDS ORDERED: NITROGLYCERIN SL TABS 0.4 MG TAB SUBLINGUAL PRN (09:24)
[2023-05-09] MEDS ORDERED: ALBUTEROL NEBULIZED 2.5 MG/3 ML INHALATION PRN (09:24)
[2023-05-09] MEDS ORDERED: DIPHENOX-ATROP 2.5-0.025 MG 1 EACH TAB PO PRN (09:24)
[2023-05-09] MEDS ORDERED: SUMAtriptan succinate 50 MG TAB PO PRN (09:24)
[2023-05-09] MEDS ORDERED: ACETAMINOPHEN TAB 325 MG TAB PO PRN ×2 (09:24→09:28)
[2023-05-09] MEDS ORDERED: NALOXONE 0.4 MG/ML 1 ML VIAL IV PRN (09:27)
[2023-05-09] MEDS ORDERED: MAG HYDROX/AL HYDROX/SIMETH 30 ML CUP PO PRN (09:28)
--- NOTE | 2023-05-09 09:33 | P.OP ---
Date of Procedure: 05/09/23 Preoperative Diagnosis: Renal calculus, left large greater than 2 cm Postoperative Diagnosis: Same Procedure(s) Performed: Cystoscopy placement of occluding balloon catheter left, percutaneous nephrostomy access (Dr. Cardoso), percutaneous nephrostolithotomy with ultrasound, 10 J nephrostomy Anesthesia: HADLEY Surgeon: [place] Cardoso Estimated Blood Loss (ml): 50 Pathology: other (Stone) Condition: stable Disposition: PACU Indications for Procedure: The patient is 68. She has multiple medical illnesses. She has a greater than 2 cm upper pole stone on the left causing pain. She comes for percutaneous nephrostolithotomy Description of Procedure: Patient brought to the operating suite. On the transport mckenna is given a general endotracheal anesthesia. She's placed in a frog position with a sterile prep and drape. Cystoscopy identifies the left ureteral orifice. The 5-[place]oz[place] occluding balloon is passed up to just above the iliac vessels but meet resistance. I removed the inner sheath and passed an 025 wire up into the renal pelvis and then the catheter slides over it. It is secured to a 16-[place]oz[place] Lehman. The patient is placed in a prone position with care to her airways and extremities. I then performed percutaneous access eventually to an upper pole calyx. This will be dictated separately. I dilate the access to to 30-Mozambican and place an access sheath into the kidney. The left renal stone was identified and using ultrasound it is broken into smaller pieces grasped and removed. I then pass the flexible nephroscope throughout the proximal ureter and the left collecting system and basket any smaller fragments. At the end of the procedure there no remaining stones visualized endoscopically or fluoroscopically in the left kidney. A 10 J nephrostomy tube was placed. It is secured to the skin. The patient is awakened and returned recovery room good condition. Blood loss is approximately 50 mL.
--- NOTE | 2023-05-09 09:37 | P.PCN ---
Date of Procedure: 05/09/23 Preoperative Diagnosis: Left renal stone, large Postoperative Diagnosis: Same Procedure(s) Performed: Left percutaneous access Anesthesia: HADLEY Surgeon: [place] Cardoso Indications for Procedure: The patient is 68 she has a large left renal stone. She comes for a percutaneous nephrostolithotomy left Description of Procedure: The patient is been previously anesthetized. An occluding balloon catheters been placed up into the left proximal ureter. She's been placed in the prone position with care to airways extremities and a sterile prep and drape. I then insufflate the left collecting system with care to identify posterior calyces. I first identify a left lower pole calyx below the 12th rib. I passed the Chiba needle into the collecting system. The [place] mandril wire is passed into the collecting system. I attempted to advance the needle over the wire but am unable to do so and loses access to this lower pole calyx. I re-insufflate the collecting system and elect to go after the upper pole calyx in which the stone is residing in between the 12th and 11th rib. I am Able to pass the Ch[place] needle into the calyx with the stone. I then pass the [place] wire into the collecting system and down into the renal pelvis. Unable to advance the needle over the wire into the pelvis. I removed the needle and pass a 3-Setswana dilating catheter over the wire down the proximal ureter. The inner sheath is removed and I passed an 035 Super Stiff wire down into the ureter. Over the superstiff wire then passed an 8-10 dilator. I remove the 8 dilator and passed a second safety wire down the ureter. Over the working wire I then dilate the tract to 30-Setswana with the dilating balloon.
[2023-05-09] MEDS: HYDROmorphone 0.5 MG/0.5 ML SYRINGE IVP PRN (09:38)
[2023-05-09] MEDS: droPERidol 5 MG/2 ML VIAL IVP ONE (10:21)
--- NOTE | 2023-05-09 10:36 | XR ---
EXAMINATION TYPE: XR chest 1V confirm line plcmt DATE OF EXAM: 05/09/2023 10:10 AM CLINICAL INDICATION:Female, 68 years old with history of IJ IV; COMPARISON: Chest radiographs from 02/11/2023. TECHNIQUE: XR chest 1V confirm line plcmt Frontal view of the chest. FINDINGS: Lungs/Pleura: There is no evidence of pleural effusion, focal consolidation, or pneumothorax. Pulmonary vascularity: Unremarkable. Heart/mediastinum: Cardiomediastinal silhouette is enlarged and stable. Musculoskeletal: No acute osseous pathology. Other findings: None Lines/Tubes: Right internal jugular central venous catheter with distal tip at the cavoatrial junction. IMPRESSION: No acute cardiopulmonary disease/process.
--- NOTE | 2023-05-09 13:04 | FL ---
EXAMINATION TYPE: FL Perc Nephrostomy New Access Intraoperative/procedural fluoroscopic services were provided. Total fluoroscopy time is 4 minutes 10 seconds seconds with a total of 7 submitted images to PACS. Please see the operative/procedural note for further details. DAP: 20.105 Gycm2
[2023-05-09] MEDS: DEXAMETHASONE SOD PHOSPHATE 4 MG/ML 1 ML VIAL IV ONE (14:52)
[2023-05-09] MEDS: CEPHALEXIN 500 MG CAP PO SCH (14:58)
[2023-05-09] MEDS: HYDROmorphone PCA 10 MG/50 ML BAG IV PRN (15:59)
[2023-05-09] MEDS: DEXTROSE 5%-0.45% NACL 1,000 ML IV SCH (17:18)
--- NOTE | 2023-05-09 19:16 | P.ANPRN ---
Procedure Note - Anesthesia - Invasive Line Right Central Line Time Out Performed: Yes Date of Procedure: 05/09/23 Time of Procedure: 07:19 Location of Patient: PreOp Preparation: Sterile Prep, Sterile Dressing Central Line Location: Internal Jugular Ultrasound Used: No Purpose - Visualization and Identification of Vasculature: No Image Stored and Saved: No Narrative: Central line placement per sterile protocol utilized.
[2023-05-09] MEDS: ALPRAZolam 0.25 MG TAB PO PRN (22:24)
[2023-05-10 02:54] VITALS: TEMP 98.1
[2023-05-10] MEDS: ONDANSETRON 4 MG/2 ML VIAL IVP PRN (07:02)
[2023-05-10] MEDS: FUROSEMIDE 20 MG TAB PO SCH (08:30)
[2023-05-10] MEDS: PANTOPRAZOLE 40 MG TABLET PO SCH (08:30)
[2023-05-10] MEDS: METOPROLOL SUCCINATE (ER) 100 MG TAB.ER.24H PO SCH (08:31)
[2023-05-10] MEDS: POTASSIUM CHLORIDE ER 20 MEQ TAB.ER PO SCH (08:31)
[2023-05-10 08:40] VITALS: BP 133/83; PULSE 95; RESP 20
--- NOTE | 2023-05-10 17:37 | P.DS ---
Providers Date of admission: 05/09/23 05:37 Attending physician: Indio Cardoso Primary care physician: [facility] Course: This is a 68-year-old female history of left-sided renal stone. Underwent a left-sided PCNL by Dr. Cardenas in May 09. Please see operative dated May 09 for surgery details. Patient was admitted to the hospital postoperatively. She did well in the postoperative period. A Lehman catheter was removed on postoperative day #1. She was discharged home on postoperative day #1 with the nephrostomy tube. At time of discharge she was tolerating a diet, ambulating, pain was controlled Plan - Discharge Summary Discharge Rx Participant: No New Discharge Prescriptions: New Ketorolac [Toradol] 10 mg PO Q6HR PRN #15 tab PRN Reason: Pain No Action Pantoprazole Sodium [Protonix] 80 mg PO DAILY Metoprolol Succinate (ER) [Toprol XL] 100 mg PO DAILY Diphenoxylate HCl/Atropine [Lomotil 2.5-0.025 mg Tablet] 1 tab PO Q6H PRN PRN Reason: Diarrhea Lidocaine/Menthol [Lidocaine-Menthol 4%-1% Patch] 1 patch TRANSDERM DAILY PRN PRN Reason: Pain SUMAtriptan succinate [Imitrex] 100 mg PO BID PRN PRN Reason: Migraine Headache Potassium Chloride ER [K-Dur 20] 40 meq PO DAILY Cephalexin [Keflex] 500 mg PO Q6HR #20 cap Ibuprofen [Motrin] 800 mg PO Q8H PRN PRN Reason: Pain Aspirin EC [Ecotrin Low Dose] 81 mg PO DAILY Cyanocobalamin [Vitamin B-12 Injection] 1,000 mcg IM SA Albuterol Inhaler [Ventolin Hfa Inhaler] 2 puff INHALATION RT-QID PRN PRN Reason: Shortness Of Breath Furosemide [Lasix] 20 mg PO DAILY Nitroglycerin Sl Tabs [Nitrostat] 0.4 mg SL Q5M PRN PRN Reason: Chest Pain Ondansetron Odt [Zofran ODT] 8 mg PO Q8HR PRN PRN Reason: Nausea Acetaminophen Tab [Tylenol] 325 mg PO Q6H PRN #6 tab PRN Reason: Pain guaiFENesin [Mucinex] 600 mg PO DIRECTED PRN PRN Reason: Congestion Cyclobenzaprine [Flexeril] 10 mg PO TID PRN PRN Reason: Pain Discharge Medication List Metoprolol Succinate (ER) [Toprol XL] 100 mg PO DAILY 08/01/18 [History] Pantoprazole Sodium [Protonix] 80 mg PO DAILY 08/01/18 [History] Diphenoxylate HCl/Atropine [Lomotil 2.5-0.025 mg Tablet] 1 tab PO Q6H PRN 03/31/20 [History] Cyanocobalamin [Vitamin B-12 Injection] 1,000 mcg IM SA 03/01/22 [History] Albuterol Inhaler [Ventolin Hfa Inhaler] 2 puff INHALATION RT-QID PRN 07/04/22 [History] Lidocaine/Menthol [Lidocaine-Menthol 4%-1% Patch] 1 patch TRANSDERM DAILY PRN 09/13/22 [History] Furosemide [Lasix] 20 mg PO DAILY 11/30/22 [History] Nitroglycerin Sl Tabs [Nitrostat] 0.4 mg SL Q5M PRN 11/30/22 [History] Potassium Chloride ER [K-Dur 20] 40 meq PO DAILY 11/30/22 [History] SUMAtriptan succinate [Imitrex] 100 mg PO BID PRN 11/30/22 [History] Ondansetron Odt [Zofran ODT] 8 mg PO Q8HR PRN 02/11/23 [History] Acetaminophen Tab [Tylenol] 325 mg PO Q6H PRN #6 tab 02/14/23 [Rx] Cephalexin [Keflex] 500 mg PO Q6HR #20 cap 04/30/23 [Rx] Aspirin EC [Ecotrin Low Dose] 81 mg PO DAILY 05/03/23 [History] Cyclobenzaprine [Flexeril] 10 mg PO TID PRN 05/03/23 [History] Ibuprofen [Motrin] 800 mg PO Q8H PRN 05/03/23 [History] guaiFENesin [Mucinex] 600 mg PO DIRECTED PRN 05/03/23 [History] Ketorolac [Toradol] 10 mg PO Q6HR PRN #15 tab 05/10/23 [Rx] Follow up Appointment(s)/Referral(s): Indio Cardoso MD [STAFF PHYSICIAN] - 01/08/24 (previously scheduled) Patient Instructions/Handouts: Cystoscopy (DC), Nephrostomy Tube Insertion (DC) Activity/Diet/Wound Care/Special Instructions: It is normal to have blood in the urine No heavy lifting or straining You may change dressing around the nephrostomy tube as needed Discharge Disposition: HOME SELF-CARE
== END 2023-05-10 12:41 | disposition home or self-care (01) ==
LOC: OR 05:36 → 4SSUR 05:37
PROVIDERS: ADMIT Urology; ATTEND Urology
DX: N20.0 Calculus of kidney (principal); N39.0 Urinary tract infection, site not specified; B96.1 Klebsiella pneumoniae [K. pneumoniae] as the cause of diseases classified elsewhere; I11.0 Hypertensive heart disease with heart failure; I50.9 Heart failure, unspecified; I25.10 Atherosclerotic heart disease of native coronary artery without angina pectoris; J44.9 Chronic obstructive pulmonary disease, unspecified; I49.5 Sick sinus syndrome; G40.909 Epilepsy, unspecified, not intractable, without status epilepticus; I25.2 Old myocardial infarction; K90.829 Short bowel syndrome, unspecified; K21.9 Gastro-esophageal reflux disease without esophagitis; M19.90 Unspecified osteoarthritis, unspecified site; G40.A09 Absence epileptic syndrome, not intractable, without status epilepticus; Z79.899 Other long term (current) drug therapy; Z79.82 Long term (current) use of aspirin; Z88.0 Allergy status to penicillin; Z88.5 Allergy status to narcotic agent; Z88.8 Allergy status to other drugs, medicaments and biological substances; Z86.718 Personal history of other venous thrombosis and embolism; Z85.42 Personal history of malignant neoplasm of other parts of uterus; Z86.73 Personal history of transient ischemic attack (TIA), and cerebral infarction without residual deficits; Z85.43 Personal history of malignant neoplasm of ovary; Z85.3 Personal history of malignant neoplasm of breast; Z86.14 Personal history of Methicillin resistant Staphylococcus aureus infection; Z87.442 Personal history of urinary calculi; Z86.018 Personal history of other benign neoplasm; Z90.49 Acquired absence of other specified parts of digestive tract; Z90.710 Acquired absence of both cervix and uterus; Z90.13 Acquired absence of bilateral breasts and nipples; Z90.721 Acquired absence of ovaries, unilateral; Z98.890 Other specified postprocedural states; Z80.51 Family history of malignant neoplasm of kidney; Z81.2 Family history of tobacco abuse and dependence; Z80.1 Family history of malignant neoplasm of trachea, bronchus and lung
CPT/HCPCS: 36556; 50081; 82365; 50432; 74018; G0378; C1769 ×5; C1894; C1729; J2250; J0330; J1100; J2405 ×2; J3010; J1580; J2704; J1170 ×2; Q9967; J1790

== ENCOUNTER → 2023-06-12 | Outpatient (CLI) | payer MEDICARE, OTHER ==
--- NOTE | 2023-06-12 12:34 | US ---
EXAMINATION TYPE: US venous doppler duplex LE LT DATE OF EXAM: 06/12/2023 12:26 PM COMPARISON: NONE CLINICAL INDICATION: Female, 68 years old with history of I82.409 ACUTE EMBOLISM AND THROMBOSIS; LLE DVT ; Recent multiple strokes; LLE cramping and swelling x 1 week. SIDE PERFORMED: Left TECHNIQUE: The lower extremity deep venous system is examined utilizing real time linear array sonog morena with graded compression, doppler sonography and color-flow sonography. VESSELS IMAGED: Common Femoral Vein Deep Femoral Vein Greater Saphenous Vein * Femoral Vein Popliteal Vein Small Saphenous Vein * Proximal Calf Veins (* superficial vessels) Right Leg: NA Left Leg: Negative for DVT IMPRESSION: Grayscale, color doppler, spectral doppler imaging performed of the deep veins of the lo wer extremities. There is normal flow, compressibility, vascular waveforms.
== END | disposition home or self-care (01) ==
LOC: RADUSWWP 12:13
PROVIDERS: ATTEND Family Medicine
DX: I82.402 Acute embolism and thrombosis of unspecified deep veins of left lower extremity (principal); Z86.73 Personal history of transient ischemic attack (TIA), and cerebral infarction without residual deficits

== ENCOUNTER → 2023-08-17 | Outpatient (CLI) | payer MEDICARE, OTHER ==
--- NOTE | 2023-08-18 14:10 | CA ---
Transthoracic Echo Report Name: Cynthia Duke Age: 68 Gender: F : 1955 Exam Date: 08/17/2023 14:16 Exam Location: [place] [facility] Ht (in): 60 Wt (lb): 130 Ordering Physician: Tanesha Pollock MD Attending/Referring Phys: Tanesha Pollock MD Senior Android Software Engineer Gracie Castellano RDCS Procedure CPT: Indications: Q21.12 patent foramen ovale Cardiac Hx: Technical Quality: Technically difficult study Contrast 1: Agitated Saline Total Dose (mL): 10 Contrast 2: Total Dose (mL): MEASUREMENTS (Male / Female) Normal Values 2D ECHO LV Diastolic Diameter PLAX 3.6 cm 4.2 - 5.9 / 3.9 - 5.3 cm LV Systolic Diameter PLAX 2.0 cm IVS Diastolic Thickness 0.8 cm 0.6 - 1.0 / 0.6 - 0.9 cm LVPW Diastolic Thickness 0.9 cm 0.6 - 1.0 / 0.6 - 0.9 cm LV Relative Wall Thickness 0.5 RV Internal Dim ED PLAX 2.6 cm M-MODE Aortic Root Diameter MM 2.6 cm LA Systolic Diameter MM 2.6 cm LA Ao Ratio MM 1.0 AV Cusp Separation MM 1.9 cm DOPPLER AV Peak Velocity 81.2 cm/s AV Peak Gradient 2.6 mmHg AV Mean Velocity 63.1 cm/s AV Mean Gradient 1.7 mmHg AV Velocity Time Integral 14.4 cm MV Area PHT 3.4 cm??? Mitral E Point Velocity 28.7 cm/s Mitral A Point Velocity 71.0 cm/s Mitral E to A Ratio 0.4 MV Deceleration Time 222.5 ms TR Peak Velocity 175.8 cm/s TR Peak Gradient 12.4 mmHg Right Ventricular Systolic Press 17.4 mmHg FINDINGS Left Ventricle Normal left ventricular systolic function with no obvious regional wall motion abnormalities. Left ventricular cavity size normal. Left ventricular wall thickness normal. Left ventricular ejection fraction is estimated at 55-60 %. Right Ventricle Normal right ventricular size and function. Right ventricular systolic pressure within normal limits. Right Atrium Normal right atrial size. Negative agitated saline bubble study for right to left shunt. Left Atrium Normal left atrial size. Mitral Valve Structurally normal mitral valve. Mild mitral annular calcification. Mild mitral regurgitation. Aortic Valve No aortic valve stenosis or regurgitation. Tricuspid Valve Structurally normal tricuspid valve. Mild tricuspid regurgitation. Pulmonic Valve Structurally normal pulmonic valve. Pericardium No pericardial effusion. Aorta Normal size aortic root and proximal ascending aorta. CONCLUSIONS Normal LV size and systolic function Previewed by: Dr. Elias Diaz MD (Electronically Signed) Final Date: 18 August 2023 14:09
== END | disposition home or self-care (01) ==
LOC: RADECHMAIN 13:55
PROVIDERS: ATTEND Psychiatry & Neurology Neurology
DX: Q21.12 Patent foramen ovale (principal)
CPT/HCPCS: 93306

== ENCOUNTER → 2024-01-16 | Outpatient (CLI) | payer MEDICARE, OTHER ==
--- NOTE | 2024-01-16 16:31 | CT ---
EXAMINATION TYPE: CT abdomen pelvis wo con CT DLP: 433.9 mGycm, Automated exposure control for dose reduction was used. DATE OF EXAM: 01/16/2024 9:19 AM COMPARISON: CTA thoracoabdominal 02/11/2023, CT abdomen and pelvis 11/30/2022 CLINICAL INDICATION:Female, 69 years old with history of KSP-N20.0 Kidney stone; N39.0 Urinary tract infect; renal stones, recurrent UTIs TECHNIQUE: Standard CT of the abdomen and pelvis without IV or oral contrast. Lack of IV or oral co ntrast limits evaluation of solid and hollow organ viscera. Coronal and sagittal reformats were perfo rmed. FINDINGS: LOWER CHEST: Bilateral breast implants with extracapsular calcifications with left greater than right . Posterior dependent subsegmental atelectasis. ABDOMEN LIVER: Diffusely hypoattenuating parenchyma. GALLBLADDER AND BILE DUCTS: Gallbladder is surgically absent with mild intrahepatic and extra hepatic biliary dilatation likely physiologic and a postcholecystectomy change. No evidence of choledocholit hiasis. PANCREAS: Fatty infiltration. SPLEEN: Unremarkable noncontrast appearance ADRENAL GLANDS: Unremarkable noncontrast appearance. KIDNEYS AND URETERS: No evidence of hydronephrosis. Nonobstructive right upper pole 3 mm calculus. No nobstructive left upper pole tumor or calculus. Redemonstration of high density 2 lesions within the left mid kidney with largest measuring up to 1.5 cm and corresponds to proteinaceous/hemorrhagic cyst s. PELVIS BLADDER: Incompletely distended but grossly unremarkable. REPRODUCTIVE: The uterus is surgically absent. ABDOMEN & PELVIS STOMACH AND BOWEL: Moderate sized hiatal hernia. Distal colonic diverticulosis without evidence for a cute diverticulitis. Postsurgical changes of the small bowel in the anterior left lower abdomen with anastomosis identified. No evidence of bowel obstruction. PERITONEUM: No evidence of pneumoperitoneum or free fluid. VASCULATURE: No evidence of aortic aneurysm. MUSCULOSKELETAL: No acute osseous abnormalities. Remote right inferior pubic ramus fracture. Osteoart hritic changes of both hips. Postsurgical changes with bilateral pedicle screws and rods involving L4 -L5 with laminectomy. Bilateral SI joint degenerative changes with vacuum disc disease. LYMPH NODES: No gross evidence for lymphadenopathy. SOFT TISSUE/ABDOMINAL WALL: Calcified granulomas within the bilateral buttock soft tissue. Postsurgic al changes of the midline anterior abdominal wall scarring demonstrated. IMPRESSION: 1. Interval short uropathy. 2. Nonobstructive bilateral renal calculi. 3. Colonic diverticulosis without evidence for acute diverticulitis. 4. Moderate sized hiatal hernia. 5. Hepatic steatosis.
== END | disposition home or self-care (01) ==
LOC: RADCTMAIN 08:18
PROVIDERS: ATTEND Urology
DX: N20.0 Calculus of kidney (principal); K57.30 Diverticulosis of large intestine without perforation or abscess without bleeding; K44.9 Diaphragmatic hernia without obstruction or gangrene; K76.0 Fatty (change of) liver, not elsewhere classified; N39.0 Urinary tract infection, site not specified; Z87.440 Personal history of urinary (tract) infections; Z87.442 Personal history of urinary calculi
CPT/HCPCS: 74176

== ENCOUNTER → 2024-02-15 | Outpatient (CLI) | payer MEDICARE, OTHER ==
[2024-02-15 15:17] LABS: Basophils # (A) 0.05 X 10*3/uL (0.00-0.10); Eosinophils # (A) 0.21 X 10*3/uL (0.04-0.35); HCT 41.2 % (37.2-46.3); HGB 13.1 g/dL (12.0-15.0); Lymphocytes # (A) 1.75 X 10*3/uL (0.90-5.00); Lymphocytes % (A) 33.4 %; MCH 28.2 pg (27.0-32.0); MCHC 31.8 g/dL (32.0-37.0); MCV 88.8 FL (80.0-97.0); Mean Platelet Volume 10.4 FL (9.5-12.2); Monocytes # (A) 0.68 X 10*3/uL (0.20-1.00); NRBC Per 100 WBC 0 X 10*3/uL (0.00-0.01); Neutrophils # (A) 2.52 X 10*3/uL (1.80-7.70); Platelet Count 216 X 10*3/uL (140-440); RBC 4.64 X 10*6/uL (4.10-5.20); RDW 13.6 % (11.5-14.5); WBC 5.24 X 10*3/uL (4.50-10.00)
[2024-02-15 15:31] LABS: Appearance,Urine Cloudy (Clear); Bilirubin,Urine Negative (Negative); Blood,Urine Trace (Negative); Color,Urine Yellow (Yellow); Ketones,Urine Negative (Negative); Nitrite,Urine Negative (Negative); Specific Gravity,Urine 1.026 (1.001-1.030); Urobilinogen,Urine 0.2 E.U./DL
[2024-02-15 15:56] LABS: Chol/HDL Ratio 4.83 Ratio; LDL Cholesterol,Calculated 97.9 mg/dL (0.0-131.0)
[2024-02-15 16:06] LABS: Bacteria,Urine 4+ (None Seen); Calcium Oxalate Crystals,Urine Present (None Seen)
[2024-02-15 16:33] LABS: ALT 58 U/L (8-44); AST 47 U/L (13-35); Albumin 4.3 g/dL (3.8-4.9); Albumin/Globulin Ratio 1.59 Ratio (1.60-3.17); Alkaline Phosphatase 157 U/L (41-126); BUN/Creat Ratio 22.17 Ratio (12.00-20.00); Blood Urea Nitrogen 13.3 mg/dL (9.0-27.0); Calcium 9.3 mg/dL (8.7-10.3); Carbon Dioxide 20.2 mmol/L (21.6-31.8); Chloride 109 mmol/L (96-109); Globulin 2.7 g/dL (1.6-3.3); Glucose 95 mg/dL (70-110); Potassium 4.2 mmol/L (3.5-5.5); Sodium 143 mmol/L (135-145); Total Bilirubin 0.2 mg/dL (0.3-1.2)
== END | disposition home or self-care (01) ==
LOC: LABWHC1 11:00
PROVIDERS: ATTEND Family Medicine
CPT/HCPCS: 36415; 80053; 80061; 81001; 82306; 82607; 84443; 85025; 87077; 87086; 87186

== ENCOUNTER 2024-03-11 13:10 | Observation (INO) | payer MEDICARE, OTHER ==
--- NOTE | 2024-03-11 13:41 | ED ---
General Adult HPI - General Chief complaint: GI Bleed Stated complaint: GI issue Time Seen by Provider: 03/11/24 13:17 Source: patient, RN notes reviewed Mode of arrival: ambulatory Limitations: no limitations - History of Present Illness Initial comments: Patient is a 69-year-old female presenting to the emergency department with concerns for rectal bleeding and abdominal discomfort. Onset of symptoms was a couple of days ago. Symptoms worsened the last 2 days however last bowel movement without blood. Patient normally does get frequent diarrhea secondary to short gut syndrome. Patient has had previous colon resections. Patient has had abdominal discomfort over the past couple of days as well. - Related Data Home Medications Medication Instructions Recorded Confirmed Metoprolol Succinate (ER) [Toprol 100 mg PO DAILY 08/01/18 05/09/23 XL] Pantoprazole Sodium [Protonix] 80 mg PO DAILY 08/01/18 05/09/23 Diphenoxylate HCl/Atropine 1 tab PO Q6H PRN 03/31/20 05/09/23 [Lomotil 2.5-0.025 mg Tablet] Cyanocobalamin [Vitamin B-12 1,000 mcg IM SA 03/01/22 05/09/23 Injection] Albuterol Inhaler [Ventolin Hfa 2 puff INHALATION RT-QID PRN 07/04/22 05/09/23 Inhaler] Lidocaine/Menthol 1 patch TRANSDERM DAILY PRN 09/13/22 05/09/23 [Lidocaine-Menthol 4%-1% Patch] Furosemide [Lasix] 20 mg PO DAILY 11/30/22 05/09/23 Nitroglycerin Sl Tabs [Nitrostat] 0.4 mg SL Q5M PRN 11/30/22 05/09/23 Potassium Chloride ER [K-Dur 20] 40 meq PO DAILY 11/30/22 05/09/23 SUMAtriptan succinate [Imitrex] 100 mg PO BID PRN 11/30/22 05/09/23 Ondansetron Odt [Zofran ODT] 8 mg PO Q8HR PRN 02/11/23 05/09/23 Aspirin EC [Ecotrin Low Dose] 81 mg PO DAILY 05/03/23 05/09/23 Cyclobenzaprine [Flexeril] 10 mg PO TID PRN 05/03/23 05/09/23 Ibuprofen [Motrin] 800 mg PO Q8H PRN 05/03/23 05/09/23 guaiFENesin [Mucinex] 600 mg PO DIRECTED PRN 05/03/23 05/09/23 Previous Rx's Medication Instructions Recorded Acetaminophen Tab [Tylenol] 325 mg PO Q6H PRN #6 tab 02/14/23 Cephalexin [Keflex] 500 mg PO Q6HR #20 cap 04/30/23 Ketorolac [Toradol] 10 mg PO Q6HR PRN #15 tab 05/10/23 Allergies Allergy/AdvReac Type Severity Reaction Status Date / Time Penicillins Allergy Anaphylaxis Verified 03/11/24 13:15 phenobarbital Allergy Rash/Hives Verified 03/11/24 13:15 phenytoin [From Dilantin] Allergy Anaphylaxis Verified 03/11/24 13:15 carbamazepine [From Tegretol] AdvReac increases Verified 03/11/24 13:15 seizures Review of Systems ROS Statement: Those systems with pertinent positive or pertinent negative responses have been documented in the HPI. ROS Other: All systems not noted in ROS Statement are negative. Constitutional: Denies: fever Eyes: Denies: eye pain ENT: Denies: ear pain Respiratory: Denies: cough, dyspnea Cardiovascular: Denies: chest pain Endocrine: Denies: fatigue Gastrointestinal: Reports: as per HPI, abdominal pain, hematochezia Musculoskeletal: Denies: back pain Past Medical History Past Medical History: Coronary Artery Disease (CAD), Cancer, Heart Failure, COPD, CVA/TIA, Deep Vein Thrombosis (DVT), GERD/Reflux, Hearing Disorder / Deafness, Hypertension, Myocardial Infarction (SD), Neurologic Disorder, Osteoarthritis (OA), Seizure Disorder Additional Past Medical History / Comment(s): History of bilateral breast cancer, ovarian cancer, uterine cancer, history of CVA (no residual) back in 1982, history of irregular heart rate possibly atrial fibrillation many years back, history of occasional petit mal seizures (grand mal seizures but none in decades), , previous SD, history of DVT, multiple bowel obstruction requiring previous abdominal surgeries and bowel resection. She also has renal cysts/stone, SSS, short gut syndrome, hx. of aoustic neuroma left ear Last Myocardial Infarction Date:: 1997 History of Any Multi-Drug Resistant Organisms: MRSA Date of last positivie culture/infection: 2003 MDRO Source:: lt hip Past Surgical History: Appendectomy, Back Surgery, Bowel Resection, Breast Surgery, Cholecystectomy, Hernia Repair, Hysterectomy, Orthopedic Surgery, Tonsillectomy Additional Past Surgical History / Comment(s): earnest mastectomy, oopherectomy back surgery x5 with last sx cage in back, bowel resection x5-6, earnest. carpal tunnel, lt rotator cuff repair, incisional hernia repair 04/13/23 Past Anesthesia/Blood Transfusion Reactions: Previous Problems w/ Anesthesia Additional Past Anesthesia/Blood Transfusion Reaction / Comment(s): experiences anxiety prior to surgery and agitiation. b/p elevates during surgery. woke up during surgery. Very difficult IV start Past Psychological History: Anxiety, Depression Smoking Status: Never smoker Past Alcohol Use History: Rare Past Drug Use History: None Reported - Past Family History Mother Family Medical History: Cancer Additional Family Medical History / Comment(s): Lung cancer. Father Family Medical History: Cancer Additional Family Medical History / Comment(s): kidney cancer Brother(s) Family Medical History: Cancer Additional Family Medical History / Comment(s): Lung cancer with metastasis. General Exam Limitations: no limitations General appearance: alert, in no apparent distress Head exam: Present: normocephalic Eye exam: Present: normal appearance Neck exam: Present: normal inspection Respiratory exam: Present: normal lung sounds bilaterally Cardiovascular Exam: Present: regular rate, normal rhythm GI/Abdominal exam: Present: soft, tenderness (Mild diffuse tenderness), normal bowel sounds. Absent: distended, guarding, rebound, rigid, pulsatile mass Rectal exam: Present: normal inspection (No stool on exam. No gross blood.) Extremities exam: Present: normal inspection Neurological exam: Present: alert Psychiatric exam: Present: normal affect, normal mood Skin exam: Present: normal color Course Vital Signs 03/11/24 03/11/24 13:11 14:08 Temperature 97.8 F Pulse Rate 102 H 98 Respiratory 20 16 Rate Blood Pressure 121/80 109/82 O2 Sat by Pulse 98 96 Oximetry Medical Decision Making - Medical Decision Making Was pt. sent in by a medical professional or institution (, PA, PILE DRIVER, urgent care, hospital, or retirement...) When possible be specific @ -Patient advised to come to emergency department by her doctor Did you speak to anyone other than the patient for history (EMS, parent, family, police, friend...)? What history was obtained from this source @ -No Did you review nursing and triage notes (agree or disagree)? Why? @ -I reviewed and agree with nursing and triage notes Were old charts reviewed (outside hosp., previous admission, EMS record, old EKG, old radiological studies, urgent care reports/EKG's, retirement records)? Report findings @ -No old charts were reviewed Differential Diagnosis (chest pain, altered mental status, abdominal pain women, abdominal pain men, vaginal bleeding, weakness, fever, dyspnea, syncope, headache, dizziness, GI bleed, back pain, seizure, CVA, palpatations, mental health, musculoskeletal)? @ -Differential Abdominal Pain Women: Appendicitis, Cholecystitis, diverticulosis, ischemic bowel, pancreatitis, hepatitis, UTI, gastroenteritis, AAA, incarcerated hernia, bowel obstruction, constipation, inflammatory bowel, hepatitis, peptic ulcer disease, splenic infarction, perforated viscus, vulvitis, ovarian torsion, PID, kidney stone, placenta abruption, this is not meant to be an all-inclusive list EKG interpreted by me (3pts min.). @ -As above X-rays interpreted by me (1pt min.). @ -None done CT interpreted by me (1pt min.). @ -CT scan ordered and is pending U/S interpreted by me (1pt. min.). @ -None done What testing was considered but not performed or refused? (CT, X-rays, U/S, labs)? Why? @ -CT scan is ordered and this is pending What meds were considered but not given or refused? Why? @ -None Did you discuss the management of the patient with other professionals (professionals i.e. , PA, PILE DRIVER, lab, RT, psych nurse, health and social care teacher, slaughterer religious ritual, teacher, community chest officer, case liner)? Give summary @ -Dr. Mahan Dwyer who will admit covering Dr. Leblanc. He is aware that CT pending. Was smoking cessation discussed for >3mins.? @ -No Was critical care preformed (if so, how long)? @ -No Were there social determinants of health that impacted care today? How? (Homelessness, low income, unemployed, alcoholism, drug addiction, transportation, low edu. Level, literacy, decrease access to med. care, skilled nursing, rehab)? @ -No Was there de-escalation of care discussed even if they declined (Discuss DNR or withdrawal of care, Hospice)? DNR status @ -No What co-morbidities impacted this encounter? (DM, HTN, Smoking, COPD, CAD, Cancer, CVA, ARF, Chemo, Hep., AIDS, mental health diagnosis, sleep apnea, morbid obesity)? @ -History of previous bowel problems and resection Was patient admitted / discharged? Hospital course, mention meds given and route, prescriptions, significant lab abnormalities, going to OR and other pertinent info. @ -Patient presents with abdominal discomfort and lower GI bleed. Abdominal exam with mild tenderness. No gross blood on exam. Workup unremarkable at this time. Case discussed with Dr. Tellez who will admit covering Dr. Leblanc. Admission orders placed. Undiagnosed new problem with uncertain prognosis? @ -No Drug Therapy requiring intensive monitoring for toxicity (Heparin, Nitro, Insulin, Cardizem)? @ -No Were any procedures done? @ -No Diagnosis/symptom? @ -Lower GI hemorrhage, abdominal pain Acute, or Chronic, or Acute on Chronic? @ -Acute, acute Uncomplicated (without systemic symptoms) or Complicated (systemic symptoms)? @ -Default Side effects of treatment? @ -No Exacerbation, Progression, or Severe Exacerbation? @ -No Poses a threat to life or bodily function? How? (Chest pain, USA, SD, pneumonia, PE, COPD, DKA, ARF, appy, cholecystitis, CVA, Diverticulitis, Homicidal, Suicidal, threat to staff... and all critical care pts) @ -No - Lab Data Result diagrams: 03/11/24 14:01 03/11/24 14:01 Lab Results 03/11/24 03/11/24 03/11/24 Range/Units 14: 14: 14:01 WBC 8.7 (3.8-10.6) k/uL RBC 4.56 (3.80-5.40) m/uL Hgb 13.1 (11.4-16.0) gm/dL Hct 40.3 (34.0-46.0) % MCV 88.5 (80.0-100.0) fL MCH 28.8 (25.0-35.0) pg MCHC 32.5 (31.0-37.0) g/dL RDW 13.1 (11.5-15.5) % Plt Count 239 (150-450) k/uL MPV 7.4 Neutrophils % 70 % Lymphocytes % 19 % Monocytes % 6 % Eosinophils % 3 % Basophils % 1 % Neutrophils # 6.0 (1.3-7.7) k/uL Lymphocytes # 1.7 (1.0-4.8) k/uL Monocytes # 0.5 (0-1.0) k/uL Eosinophils # 0.2 (0-0.7) k/uL Basophils # 0.0 (0-0.2) k/uL PT 10.4 (10.0-12.5) sec INR 0.9 (<1.2) APTT 24.2 (22.0-30.0) sec Sodium 140 (137-145) mmol/L Potassium 4.4 (3.5-5.1) mmol/L Chloride 109 H (98-107) mmol/L Carbon Dioxide 21 L (22-30) mmol/L Anion Gap 10 mmol/L BUN 14 (7-17) mg/dL Creatinine 0.62 (0.52-1.04) mg/dL Est GFR (CKD-EPI)AfAm >90 (>60 ml/min/1.73 sqM) Est GFR (CKD-EPI)NonAf >90 (>60 ml/min/1.73 sqM) Glucose 106 H (74-99) mg/dL Calcium 9.0 (8.4-10.2) mg/dL Total Bilirubin 0.8 (0.2-1.3) mg/dL AST 63 H (14-36) U/L ALT 57 H (4-34) U/L Alkaline Phosphatase 96 (38-126) U/L Total Protein 7.5 (6.3-8.2) g/dL Albumin 4.4 (3.5-5.0) g/dL Disposition Clinical Impression: Abdominal pain, Lower GI hemorrhage Disposition: ADMITTED IP TO THIS HOSP Is patient prescribed a controlled substance at d/c from ED?: No Referrals: Bia May MD [Primary Care Provider] - 1-2 days Time of Disposition: 14:57
[2024-03-11] MEDS: SODIUM CHLORIDE 0.9% 1,000 ML IV STA (13:59)
[2024-03-11] MEDS: HYDROmorphone 0.5 MG/0.5 ML SYRINGE IVP STA (14:11)
[2024-03-11] MEDS: PANTOPRAZOLE 40 MG/10 ML VIAL IVP STA (14:11)
[2024-03-11 14:13] LABS: Basophils % (A) 1 %; Eosinophils # (A) 0.2 k/uL (0-0.7); Eosinophils % (A) 3 %; HCT 40.3 % (34.0-46.0); HGB 13.1 gm/dL (11.4-16.0); Lymphocytes # (A) 1.7 k/uL (1.0-4.8); Lymphocytes % (A) 19 %; MCH 28.8 pg (25.0-35.0); MCHC 32.5 g/dL (31.0-37.0); MCV 88.5 fL (80.0-100.0); Mean Platelet Volume 7.4; Monocytes # (A) 0.5 k/uL (0-1.0); Monocytes % (A) 6 %; Neutrophils % (A) 70 %; Platelet Count 239 k/uL (150-450); RBC 4.56 m/uL (3.80-5.40); RDW 13.1 % (11.5-15.5); WBC 8.7 k/uL (3.8-10.6)
[2024-03-11 14:27] LABS: INR 0.9 (<1.2); Partial Thromboplastin Time 24.2 sec (22.0-30.0); Prothrombin Time 10.4 sec (10.0-12.5)
[2024-03-11 14:32] LABS: ALT 57 U/L (4-34); African American GFR (CKD) >90 (>60 ml/min/1.73 sqM); Anion Gap 10 mmol/L; Blood Urea Nitrogen 14 mg/dL (7-17); Carbon Dioxide 21 mmol/L (22-30); Chloride 109 mmol/L (98-107); Glucose 106 mg/dL (74-99); Non-African American GFR(CKD) >90 (>60 ml/min/1.73 sqM); Sodium 140 mmol/L (137-145); Total Bilirubin 0.8 mg/dL (0.2-1.3)
[2024-03-11 14:33] LABS: Albumin 4.4 g/dL (3.5-5.0); Potassium 4.4 mmol/L (3.5-5.1); Total Protein 7.5 g/dL (6.3-8.2)
[2024-03-11 14:34] LABS: AST 63 U/L (14-36); Alkaline Phosphatase 96 U/L (38-126)
[2024-03-11] MEDS ORDERED: NALOXONE 0.4 MG/ML 1 ML VIAL IV PRN (14:57)
--- NOTE | 2024-03-11 15:24 | CT ---
EXAMINATION TYPE: CT abdomen pelvis w con DATE OF EXAM: 03/11/2024 3:14 PM COMPARISON: 01/16/2024 CLINICAL INDICATION: Female, 69 years old with history of pain; Abdominal and rectal pain. Hx several bowel obstructions, bowel resection, short gut syndrome. TECHNIQUE: Axial CT abdomen pelvis w con;Sagittal and coronal reformats were created on a separate w orkstation. Contrast used:100 mL of Isovue 300 with IV Contrast, (none if empty) Oral contrast used: without Oral Contrast (none if empty) CT DLP: 775.6 mGycm, Automated exposure control for dose reduction was used. FINDINGS: LOWER CHEST: Unremarkable ABDOMEN LIVER: Diffusely hypoattenuating parenchyma. GALLBLADDER AND BILE DUCTS: Gallbladder is surgically absent with mild intrahepatic and extra hepatic biliary dilatation likely physiologic and a postcholecystectomy change. No evidence of choledocholit hiasis. PANCREAS: Lipomatous atrophy changes. SPLEEN: Unremarkable. ADRENAL GLANDS: Unremarkable. KIDNEYS AND URETERS: No evidence of hydronephrosis or renal calculus. The ureters are unremarkable. Bilateral simple appearing probable cyst. PELVIS BLADDER: No evidence for wall thickening or mass given limitations of exam. REPRODUCTIVE: The uterus is surgically absent. ABDOMEN & PELVIS STOMACH AND BOWEL: Moderate to large amount of stool throughout the colon. No evidence of bowel obstr uction. Post surgical changes to the bowel in the anterior abdomen no evidence for obstruction. Scatt ered colonic diverticula. The rectum is grossly unremarkable. Moderate hiatal hernia. PERITONEUM/RETROPERITONEUM: No evidence of pneumoperitoneum or free fluid. VASCULATURE: No evidence of aortic aneurysm. MUSCULOSKELETAL: No acute osseous abnormalities, postsurgical changes to L4 and S1. Hardware appears intact. LYMPH NODES: No gross evidence for lymphadenopathy. SOFT TISSUE/ABDOMINAL WALL: Postsurgical changes anterior abdominal wall. IMPRESSION: 1. Post surgical changes without evidence for bowel obstruction. Moderate to large amount stool thro ughout the colon. 2. Rectum is grossly unremarkable. 3. Moderate hiatal hernia. 4. Colonic diverticulosis. 5. Hepatic steatosis. [facility], , 03/11/2024 3:21 PM
[2024-03-11] MEDS: ONDANSETRON 4 MG/2 ML VIAL IVP PRN (15:30)
[2024-03-11] MEDS: SODIUM CHLORIDE 0.9% 1,000 ML IV SCH (15:37)
[2024-03-11] MEDS: HYDROmorphone 0.5 MG/0.5 ML SYRINGE IVP PRN (17:18)
[2024-03-11] MEDS ORDERED: BENZONATATE 100 MG CAP PO PRN (22:26)
--- NOTE | 2024-03-12 00:04 | P.HPIM ---
History of Present Illness H&P Date: 03/11/24 Chief Complaint: Abdominal pain Patient is a 69-year-old female patient with a history of breast cancer, ovarian cancer, uterine cancer, history of bowel resection, coronary artery disease, GERD, hearing disorder/deafness, hypertension, history of [place] and other medical problems presents to ER with complaints of abdominal pain. Abdominal pain is mainly in the left lower quadrant. Patient did have increased diarrhea for the last 2 days with spots of blood. Patient did have a bowel meant with blood clot later which made her to come to ER. Patient normally gets frequent diarrhea due to short gut syndrome. Otherwise denied any fever or chills. No cough or sputum production. No chest pain or shortness of breath. Denied any recent antibiotic use. CT of the abdomen pelvis showed postsurgical changes without evidence for bowel obstruction. Moderate to large amount of stool throughout the colon. Rectum is grossly unremarkable. Moderate hiatal hernia. Colonic diverticulosis. Hepatic steatosis. Laboratory data showed WBC 8.7 hemoglobin 13.1 and platelets 239 sodium 140 potassium 4.4 chloride 109 bicarb is 21 BUN 14 and creatinine 0.69 blood sugar 106 AST 63 ALT 57 alk phos 96 and albumin 4.4. Review of Systems Constitutional: Patient denies any fever or chills . No generalized weakness or weight loss. Abdomen: Patient does have abdominal pain and rectal bleeding. No nausea or vomiting. Cardiovascular: Patient denies any chest pain or short of breath no palpitations. Respiratory: patient denied any cough or sputum production. No shortness of breath Neurologic: Patient denied any numbness or tingling. no headache. Musculoskeletal: Patient denies any complaints of joint swelling or deformity. Skin: Negative Psychiatric: Negative Endocrine: No heat or cold intolerance. No recent weight gain. Genitourinary: No dysuria or hematuria. All other 14 point ROS negative except the above Past Medical History Past Medical History: Coronary Artery Disease (CAD), Cancer, Heart Failure, COPD, CVA/TIA, Deep Vein Thrombosis (DVT), GERD/Reflux, Hearing Disorder / Deafness, Hypertension, Myocardial Infarction (NE), Neurologic Disorder, Osteoarthritis (OA), Seizure Disorder Additional Past Medical History / Comment(s): History of bilateral breast cancer, ovarian cancer, uterine cancer, history of CVA (no residual) back in 1982, history of irregular heart rate possibly atrial fibrillation many years back, history of occasional petit mal seizures (grand mal seizures but none in decades), , previous [place], history of DVT, multiple bowel obstruction requiring previous abdominal surgeries and bowel resection. She also has renal cysts/stone, 1979's SSS, short gut syndrome, hx. of aoustic neuroma left ear Last Myocardial Infarction Date:: 1997 History of Any Multi-Drug Resistant Organisms: MRSA Date of last positivie culture/infection: 2003 MDRO Source:: lt hip Past Surgical History: Appendectomy, Back Surgery, Bowel Resection, Breast Surgery, Cholecystectomy, Hernia Repair, Hysterectomy, Orthopedic Surgery, Tonsillectomy Additional Past Surgical History / Comment(s): earnest mastectomy, oopherectomy back surgery x5 with last sx cage in back, bowel resection x5-6, earnest. carpal tunnel, lt rotator cuff repair, incisional hernia repair 04/13/23 Past Anesthesia/Blood Transfusion Reactions: Previous Problems w/ Anesthesia Additional Past Anesthesia/Blood Transfusion Reaction / Comment(s): experiences anxiety prior to surgery and agitiation. b/p elevates during surgery. woke up during surgery. Very difficult IV start Smoking Status: Never smoker - Past Family History Mother Family Medical History: Cancer Additional Family Medical History / Comment(s): Lung cancer. Father Family Medical History: Cancer Additional Family Medical History / Comment(s): kidney cancer, CABG Brother(s) Family Medical History: Cancer Additional Family Medical History / Comment(s): Lung cancer with metastasis. Medications and Allergies Home Medications Medication Instructions Recorded Confirmed Type Metoprolol Succinate (ER) [Toprol 100 mg PO DAILY 08/01/18 03/11/24 History XL] Pantoprazole Sodium [Protonix] 80 mg PO DAILY 08/01/18 03/11/24 History Diphenoxylate HCl/Atropine 1 tab PO TID 03/31/20 03/11/24 History [Lomotil 2.5-0.025 mg Tablet] Cyanocobalamin [Vitamin B-12 1,000 mcg IM SA 03/01/22 03/11/24 History Injection] Potassium Chloride ER [K-Dur 20] 40 meq PO DAILY 11/30/22 03/11/24 History SUMAtriptan succinate [Imitrex] 100 mg PO BID PRN 11/30/22 03/11/24 History Ondansetron Odt [Zofran ODT] 8 mg PO Q8HR PRN 02/11/23 03/11/24 History Aspirin EC [Ecotrin Low Dose] 81 mg PO DAILY 05/03/23 03/11/24 History Cyclobenzaprine [Flexeril] 10 mg PO TID PRN 05/03/23 03/11/24 History Ascorbic Acid [Vitamin C] 500 mg PO DAILY 03/11/24 03/11/24 History Benzonatate [Tessalon Perle] 200 mg PO TID PRN 03/11/24 03/11/24 History Brivaracetam [Briviact] 50 mg PO BID 03/11/24 03/11/24 History Cholecalciferol [Vitamin D3 (25 25 mcg PO DAILY 03/11/24 03/11/24 History Mcg = 1000 Iu)] Dicyclomine [Bentyl] 10 mg PO TID PRN 03/11/24 03/11/24 History Furosemide [Lasix] 40 mg PO DAILY 03/11/24 03/11/24 History Magnesium Oxide [Magnesium] 500 mg PO DAILY 03/11/24 03/11/24 History Zinc Gluconate [Zinc] 50 mg PO DAILY 03/11/24 03/11/24 History diazePAM [Valium] 5 mg VAGINAL BID PRN 03/11/24 03/11/24 History lisinopriL [Zestril] 20 mg PO BID 03/11/24 03/11/24 History Allergies Allergy/AdvReac Type Severity Reaction Status Date / Time Penicillins Allergy Anaphylaxis Verified 03/11/24 15:10 phenobarbital Allergy Rash/Hives Verified 03/11/24 15:10 phenytoin [From Dilantin] Allergy Anaphylaxis Verified 03/11/24 15:10 carbamazepine [From Tegretol] AdvReac increases Verified 03/11/24 15:10 seizures Physical Exam Vitals: Vital Signs Temp Pulse Pulse Resp BP BP Pulse Ox 03/11/24 20:20 83 18 105/86 95 03/11/24 18:27 93 16 109/95 94 L 03/11/24 17:13 87 16 110/80 95 03/11/24 15:35 87 18 120/81 96 03/11/24 14:08 98 16 109/82 96 03/11/24 13:11 97.8 F 102 H 20 121/80 98 Intake and Output 03/11/24 03/11/24 03/11/24 06:59 14:59 22:59 Other: Voiding Method Toilet # Voids 1 Weight 59.421 kg 59.421 kg PHYSICAL EXAMINATION: Patient is lying in the bed comfortably, no acute distress, awake alert and oriented.. HEENT: Normocephalic. Neck is supple. Pupils reactive. Nostrils clear. Oral cavity is moist. Neck reveals no JVD, carotid bruits, or thyromegaly. CHEST EXAMINATION: Trachea is central. Symmetrical expansion. Lung jeff clear to auscultation and percussion. CARDIAC: Normal S1, S2 with no gallops. No murmurs ABDOMEN: Soft. Bowel sounds present. Mild left lower quadrant tenderness.. No organomegaly. No abdominal bruits. Extremities: reveal no edema. No clubbing or cyanosis Neurologically awake, alert, oriented x3 with well-coordinated movements. No focal deficits noted Skin: No rash or skin lesions. Psychiatric: Coperative. Nonsuicidal Musculoskeletal: No joint swelling or deformity. Normal range of motion. Results CBC & Chem 7: 03/12/24 06:04 03/12/24 06:04 Labs: Abnormal Lab Results - Last 24 Hours (Table) 03/11/24 Range/Units 14:01 Chloride 109 H (98-107) mmol/L Carbon Dioxide 21 L (22-30) mmol/L Glucose 106 H (74-99) mg/dL AST 63 H (14-36) U/L ALT 57 H (4-34) U/L Thrombosis Risk Factor Assmnt - DVT/VTE Prophylaxis DVT/VTE Prophylaxis: Mechanical Prophylaxis ordered - Choose All That Apply Any of the Below Risk Factors Present?: No Each Risk Factor Represents 2 Points: Age 61-74 years Each Risk Factor Represents 3 Points: History of DVT/PE Other congenital or acquired thrombophilia - If yes, enter type in comment: No Thrombosis Risk Factor Assessment Total Risk Factor Score: 5 Thrombosis Risk Factor Assessment Level: High Risk Assessment and Plan Assessment: Acute GI bleed possible diverticulosis versus hemorrhoids. Moderate to large amount of stool throughout the colon. Mild transaminitis Coronary artery disease with prior history of [place] Hearing disorder/deafness Hypertension History of DVT History of bilateral breast cancer, ovarian cancer and uterine cancer History of CVA with no residual weakness Short gut syndrome with history of prior bowel resection Anxiety/depression DVT prophylaxis and GI prophylaxis. With SCDs. Plan: Patient will be guided on IV hydration. Nothing by mouth. Continue to monitor H&H. Continue pain management and also on Bentyl. General surgery consult for evaluation. Continue to follow closely. Time with Patient: Greater than 30
[2024-03-12] MEDS: HYDROmorphone 1 MG/ML 1 ML SYRINGE IVP PRN (04:32)
[2024-03-12 06:57] LABS: Basophils % (A) 1 %; Eosinophils # (A) 0.2 k/uL (0-0.7); Eosinophils % (A) 3 %; HCT 43.9 % (34.0-46.0); HGB 13.9 gm/dL (11.4-16.0); Hypochromasia Slight; Lymphocytes # (A) 1.7 k/uL (1.0-4.8); Lymphocytes % (A) 23 %; MCH 28.8 pg (25.0-35.0); MCHC 31.6 g/dL (31.0-37.0); MCV 91.2 fL (80.0-100.0); Mean Platelet Volume 7.2; Monocytes # (A) 0.5 k/uL (0-1.0); Monocytes % (A) 7 %; Neutrophils # (A) 4.9 k/uL (1.3-7.7); Neutrophils % (A) 64 %; Platelet Count 234 k/uL (150-450); RBC 4.81 m/uL (3.80-5.40); RDW 13.4 % (11.5-15.5); WBC 7.7 k/uL (3.8-10.6)
[2024-03-12 07:09] LABS: ALT 58 U/L (4-34); African American GFR (CKD) >90 (>60 ml/min/1.73 sqM); Albumin 4.4 g/dL (3.5-5.0); Anion Gap 7 mmol/L; Blood Urea Nitrogen 14 mg/dL (7-17); Calcium 8.8 mg/dL (8.4-10.2); Carbon Dioxide 24 mmol/L (22-30); Chloride 110 mmol/L (98-107); Glucose 84 mg/dL (74-99); Non-African American GFR(CKD) >90 (>60 ml/min/1.73 sqM); Sodium 141 mmol/L (137-145); Total Bilirubin 0.6 mg/dL (0.2-1.3); Total Protein 7.4 g/dL (6.3-8.2)
[2024-03-12 07:12] LABS: Potassium 4.4 mmol/L (3.5-5.1)
[2024-03-12 07:13] LABS: AST 55 U/L (14-36); Alkaline Phosphatase 113 U/L (38-126)
[2024-03-12] MEDS: METOPROLOL SUCCINATE (ER) 100 MG TAB.ER.24H PO SCH (07:57)
[2024-03-12] MEDS: NON FORMULARY DRUG (Brivaracetam [Briviact] 50 MG Tablet) PO SCH (07:57)
[2024-03-12] MEDS: PANTOPRAZOLE 40 MG/10 ML VIAL IV SCH (07:57)
[2024-03-12] MEDS: HYDROmorphone 2 MG/ML 1 ML SYRINGE IVP PRN (11:10)
[2024-03-12] MEDS: LEVOFLOXACIN 500MG-D5W PMX 500 MG in DEXTROSE/WATER 1 100ML.BAG IVPB SCH (13:26)
--- NOTE | 2024-03-12 15:22 | P.GSCN ---
History of Present Illness Consult date: 03/12/24 History of present illness: CHIEF COMPLAINT: Abdominal pain HISTORY OF PRESENT ILLNESS: This is a 69-year-old female with a known history of multiple abdominal surgeries and short gut syndrome. Patient reports that she has had left lower quadrant and right lower quadrant abdominal pain x 5 days. Patient also reports she has had a little bit of blood in the stool. And the bowel movements have been loose. She reports yesterday that the amount of blood started to increase and therefore came into the ER for further evaluation. Her BM this morning reported no blood. She is only on aspirin at home. She reports her last colonoscopy was a year ago and was negative. Her CT scan reported postsurgical changes without evidence for bowel obstruction. Moderate to large amount of stool throughout the colon. Rectum is grossly unremarkable. Moderate hiatal hernia. Colonic diverticulosis and hepatic steatosis. Her hemoglobin has been stable at 13. PAST MEDICAL HISTORY: See below PAST SURGICAL HISTORY: See below MEDICATIONS: See below ALLERGIES: See below SOCIAL HISTORY: No illicit drug use. REVIEW OF SYSTEMS: CONSTITUTIONAL: Denies fever or chills. HEENT: Denies blurred vision, vision changes, or eye pain. Denies hemoptysis CARDIOVASCULAR: Denies chest pain or pressure. RESPIRATORY: No shortness of breath. GASTROINTESTINAL: See HPI for pertinent findings HEMATOLOGIC: Denies bleeding disorders. GENITOURINARY: Denies any blood in urine or increased urinary frequency. SKIN: Denies pruitis. Denies rash. PHYSICAL EXAM: VITAL SIGNS: Reviewed GENERAL: Well-developed in no acute distress. HEENT: No sclera icterus. Extraocular movements grossly intact. Moist buccal mucosa. Head is atraumatic, normocephalic. No nasal drainage. ABDOMEN: Soft. Nondistended. Tenderness palpation of the right lower quadrant and left lower quadrant. Left lower quadrant is more tender than the right. Patient has midline incision scar. And scar from open cholecystectomy NEUROLOGIC: Alert and oriented. Cranial nerves II through XII grossly intact. LABORATORY DATA: WBC 7.7 Hgb 13.9 platelets 234 Sodium 141 potassium 4.4 creatinine 0.51 IMAGING: CT scan findings as stated above ASSESSMENT: 1. Likely acute diverticulitis with diverticular bleed 2. Moderate to large amount of stool throughout the colon 3. Multiple abdominal surgeries 4. Short gut syndrome PLAN: -Levaquin and Flagyl ordered for antibiotic treatment of diverticulitis -Start clear liquid diet -Continue to monitor -No surgical intervention planned Physician Butter Melter note has been reviewed by physician. Signing provider agrees with the documented findings, assessment, and plan of care. I have personally seen and examined the patient, reviewed the OIL DISTRIBUTOR /PAs history, exam and MDM and agree with the assessment and plan as written. Based on total visit time, I have performed more than 50% of the visit. As above: Patient with lower abdominal pain and left lower quadrant tenderness. Patient with history of diverticulitis in the past. CAT scan reviewed. No obvious inflammatory changes. Reasonable to empirically treat for mild diverticulitis. Continue liquid diet for now. Reevaluate tomorrow. Past Medical History Past Medical History: Coronary Artery Disease (CAD), Cancer, Heart Failure, COPD, CVA/TIA, Deep Vein Thrombosis (DVT), GERD/Reflux, Hearing Disorder / Deafness, Hypertension, Myocardial Infarction (CT), Neurologic Disorder, Osteoarthritis (OA), Seizure Disorder Additional Past Medical History / Comment(s): History of bilateral breast cancer, ovarian cancer, uterine cancer, history of CVA (no residual) back in 1982, history of irregular heart rate possibly atrial fibrillation many years back, history of occasional petit mal seizures (grand mal seizures but none in decades), , previous CT, history of DVT, multiple bowel obstruction requiring previous abdominal surgeries and bowel resection. She also has renal cysts/stone, 1979's SSS, short gut syndrome, hx. of aoustic neuroma left ear Last Myocardial Infarction Date:: 1997 History of Any Multi-Drug Resistant Organisms: MRSA Year Discovered:: 2003 MDRO Source:: lt hip Past Surgical History: Appendectomy, Back Surgery, Bowel Resection, Breast Surgery, Cholecystectomy, Hernia Repair, Hysterectomy, Orthopedic Surgery, Tonsillectomy Additional Past Surgical History / Comment(s): earnest mastectomy, oopherectomy back surgery x5 with last sx cage in back, bowel resection x5-6, earnest. carpal tunnel, lt rotator cuff repair, incisional hernia repair 04/13/23 Past Anesthesia/Blood Transfusion Reactions: Previous Problems w/ Anesthesia Additional Past Anesthesia/Blood Transfusion Reaction / Comm: experiences anxiety prior to surgery and agitiation. b/p elevates during surgery. woke up during surgery. Very difficult IV start Smoking Status: Never smoker - Past Family History Mother Family Medical History: Cancer Additional Family Medical History / Comment(s): Lung cancer. Father Family Medical History: Cancer Additional Family Medical History / Comment(s): kidney cancer, CABG Brother(s) Family Medical History: Cancer Additional Family Medical History / Comment(s): Lung cancer with metastasis. Medications and Allergies Home Medications Medication Instructions Recorded Confirmed Type Metoprolol Succinate (ER) [Toprol 100 mg PO DAILY 08/01/18 03/11/24 History XL] Pantoprazole Sodium [Protonix] 80 mg PO DAILY 08/01/18 03/11/24 History Diphenoxylate HCl/Atropine 1 tab PO TID 03/31/20 03/11/24 History [Lomotil 2.5-0.025 mg Tablet] Cyanocobalamin [Vitamin B-12 1,000 mcg IM SA 03/01/22 03/11/24 History Injection] Potassium Chloride ER [K-Dur 20] 40 meq PO DAILY 11/30/22 03/11/24 History SUMAtriptan succinate [Imitrex] 100 mg PO BID PRN 11/30/22 03/11/24 History Ondansetron Odt [Zofran ODT] 8 mg PO Q8HR PRN 02/11/23 03/11/24 History Aspirin EC [Ecotrin Low Dose] 81 mg PO DAILY 05/03/23 03/11/24 History Cyclobenzaprine [Flexeril] 10 mg PO TID PRN 05/03/23 03/11/24 History Ascorbic Acid [Vitamin C] 500 mg PO DAILY 03/11/24 03/11/24 History Benzonatate [Tessalon Perle] 200 mg PO TID PRN 03/11/24 03/11/24 History Brivaracetam [Briviact] 50 mg PO BID 03/11/24 03/11/24 History Cholecalciferol [Vitamin D3 (25 25 mcg PO DAILY 03/11/24 03/11/24 History Mcg = 1000 Iu)] Dicyclomine [Bentyl] 10 mg PO TID PRN 03/11/24 03/11/24 History Furosemide [Lasix] 40 mg PO DAILY 03/11/24 03/11/24 History Magnesium Oxide [Magnesium] 500 mg PO DAILY 03/11/24 03/11/24 History Zinc Gluconate [Zinc] 50 mg PO DAILY 03/11/24 03/11/24 History diazePAM [Valium] 5 mg VAGINAL BID PRN 03/11/24 03/11/24 History lisinopriL [Zestril] 20 mg PO BID 03/11/24 03/11/24 History Allergies Allergy/AdvReac Type Severity Reaction Status Date / Time Penicillins Allergy Anaphylaxis Verified 03/11/24 15:10 phenobarbital Allergy Rash/Hives Verified 03/11/24 15:10 phenytoin [From Dilantin] Allergy Anaphylaxis Verified 03/11/24 15:10 carbamazepine [From Tegretol] AdvReac increases Verified 03/11/24 15:10 seizures Surgical - Exam Vital Signs Temp Pulse Resp BP Pulse Ox 97.8 F 102 H 20 121/80 98 03/11/24 13:11 03/11/24 13:11 03/11/24 13:11 03/11/24 13:11 03/11/24 13:11 Results - Labs 03/12/24 06:04 03/12/24 06:04 Abnormal Lab Results - Last 24 Hours (Table) 03/11/24 03/12/24 Range/Units 14:01 06:04 Chloride 109 H 110 H (98-107) mmol/L Carbon Dioxide 21 L (22-30) mmol/L Creatinine 0.51 L (0.52-1.04) mg/dL Glucose 106 H (74-99) mg/dL AST 63 H 55 H (14-36) U/L ALT 57 H 58 H (4-34) U/L Diabetes panel 03/11/24 03/12/24 Range/Units 14:01 06:04 Sodium 140 141 (137-145) mmol/L Potassium 4.4 4.4 (3.5-5.1) mmol/L Chloride 109 H 110 H (98-107) mmol/L Carbon Dioxide 21 L 24 (22-30) mmol/L BUN 14 14 (7-17) mg/dL Creatinine 0.62 0.51 L (0.52-1.04) mg/dL Glucose 106 H 84 (74-99) mg/dL Calcium 9.0 8.8 (8.4-10.2) mg/dL AST 63 H 55 H (14-36) U/L ALT 57 H 58 H (4-34) U/L Alkaline Phosphatase 96 113 (38-126) U/L Total Protein 7.5 7.4 (6.3-8.2) g/dL Albumin 4.4 4.4 (3.5-5.0) g/dL Calcium panel 03/11/24 03/12/24 Range/Units 14:01 06:04 Calcium 9.0 8.8 (8.4-10.2) mg/dL Albumin 4.4 4.4 (3.5-5.0) g/dL Pituitary panel 03/11/24 03/12/24 Range/Units 14:01 06:04 Sodium 140 141 (137-145) mmol/L Potassium 4.4 4.4 (3.5-5.1) mmol/L Chloride 109 H 110 H (98-107) mmol/L Carbon Dioxide 21 L 24 (22-30) mmol/L BUN 14 14 (7-17) mg/dL Creatinine 0.62 0.51 L (0.52-1.04) mg/dL Glucose 106 H 84 (74-99) mg/dL Calcium 9.0 8.8 (8.4-10.2) mg/dL Adrenal panel 03/11/24 03/12/24 Range/Units 14:01 06:04 Sodium 140 141 (137-145) mmol/L Potassium 4.4 4.4 (3.5-5.1) mmol/L Chloride 109 H 110 H (98-107) mmol/L Carbon Dioxide 21 L 24 (22-30) mmol/L BUN 14 14 (7-17) mg/dL Creatinine 0.62 0.51 L (0.52-1.04) mg/dL Glucose 106 H 84 (74-99) mg/dL Calcium 9.0 8.8 (8.4-10.2) mg/dL Total Bilirubin 0.8 0.6 (0.2-1.3) mg/dL AST 63 H 55 H (14-36) U/L ALT 57 H 58 H (4-34) U/L Alkaline Phosphatase 96 113 (38-126) U/L Total Protein 7.5 7.4 (6.3-8.2) g/dL Albumin 4.4 4.4 (3.5-5.0) g/dL
[2024-03-12] MEDS: metroNIDAZOLE-NS PMX 500 MG in SALINE 1 100ML.BAG IVPB SCH (15:52)
[2024-03-12] MEDS: BRIVARACETAM PO SCH (20:51)
[2024-03-13] MEDS: SUMAtriptan succinate 50 MG TAB PO PRN (07:19)
[2024-03-13 08:29] LABS: HCT 39.8 % (37.2-46.3); HGB 12.5 g/dL (12.0-15.0); MCH 29.1 pg (27.0-32.0); MCHC 31.4 g/dL (32.0-37.0); MCV 92.6 FL (80.0-97.0); Mean Platelet Volume 10.7 FL (9.5-12.2); NRBC Per 100 WBC 0 X 10*3/uL (0.00-0.01); Platelet Count 197 X 10*3/uL (140-440); RDW 13.7 % (11.5-14.5); WBC 5.66 X 10*3/uL (4.50-10.00)
--- NOTE | 2024-03-13 14:08 | P.PN ---
Subjective Progress Note Date: 03/13/24 SURGICAL PROGRESS NOTE CHIEF COMPLAINT: Abdominal pain HISTORY OF PRESENT ILLNESS: Patient reports that her pain is improving. She had 1 bloody bowel movement last night. And bowel movement this morning had no blood. She has only had a few sips of the liquids. Afebrile. WBC 5.66 hemoglobin down from 13.9-12.5 PHYSICAL EXAM: VITAL SIGNS: Reviewed. GENERAL: Well-developed in no acute distress. HEENT: No sclera icterus. Extraocular movements grossly intact. Moist buccal mucosa. Head is atraumatic, normocephalic. ABDOMEN: Soft. Nondistended. Tenderness in more in the left lower quadrant and the right lower quadrant NEUROLOGIC: Alert and oriented. Cranial nerves II through XII grossly intact. ASSESSMENT: 1. Possible mild acute diverticulitis with diverticular bleed 2. Moderate to large amount of stool throughout the colon 3. Multiple abdominal surgeries 4. Short gut syndrome PLAN: -Continue antibiotics -Continue clinical diet -Continue to monitor -No surgical intervention planned Physician Geothermal Powerplant Supervisor note has been reviewed by physician. Signing provider agrees with the documented findings, assessment, and plan of care. I have personally seen and examined the patient, reviewed the FOLLOW UP MANAGER /PAs history, exam and MDM and agree with the assessment and plan as written. Based on total visit time, I have performed more than 50% of the visit. As above: Patient says she is still having lower abdominal pain. It is better than it was yesterday. When I asked the patient she denied having any bloody stools during her hospital stay only at home. Patient's last colonoscopy she states 1 year ago. Continue antibiotics for possible mild diverticular bleed. Continue liquid diet for now. Reassess tomorrow. Repeat labs tomorrow. Objective - Vital Signs Vital signs: Vital Signs Temp 97.8 F 03/13/24 06:55 Pulse 95 03/13/24 09:19 Resp 16 03/13/24 09:19 BP 143/89 03/13/24 06:55 Pulse Ox 90 L 03/13/24 06:55 FiO2 Intake & Output 03/12/24 03/13/24 03/13/24 18:59 06:59 18:59 Other: Voiding Method Toilet Toilet # Voids 2 1 # Bowel Movements 1 1 - Labs CBC & Chem 7: 03/13/24 03:16 03/12/24 06:04 Labs: Abnormal Lab Results - Last 24 Hours (Table) 03/13/24 Range/Units 03:16 MCHC 31.4 L (32.0-37.0) g/dL
[2024-03-13] MEDS: LORazepam 2 MG/ML INJ IV PRN (23:36)
[2024-03-14 09:08] LABS: Basophils % (A) 0 %; Eosinophils # (A) 0.2 k/uL (0-0.7); Eosinophils % (A) 3 %; HCT 44.2 % (34.0-46.0); HGB 13.8 gm/dL (11.4-16.0); Hypochromasia Slight; Lymphocytes % (A) 14 %; MCH 28.5 pg (25.0-35.0); MCHC 31.1 g/dL (31.0-37.0); MCV 91.7 fL (80.0-100.0); Mean Platelet Volume 7.7; Monocytes # (A) 0.5 k/uL (0-1.0); Monocytes % (A) 7 %; Neutrophils # (A) 5.5 k/uL (1.3-7.7); Neutrophils % (A) 74 %; Platelet Count 153 k/uL (150-450); RBC 4.83 m/uL (3.80-5.40); RDW 13.7 % (11.5-15.5); WBC 7.5 k/uL (3.8-10.6)
--- NOTE | 2024-03-14 10:12 | P.PN ---
Subjective Progress Note Date: 03/12/24 Patient is a 69-year-old female patient with a history of breast cancer, ovarian cancer, uterine cancer, history of bowel resection, coronary artery disease, GERD, hearing disorder/deafness, hypertension, history of [place] and other medical problems presents to ER with complaints of abdominal pain. Abdominal pain is mainly in the left lower quadrant. Patient did have increased diarrhea for the last 2 days with spots of blood. Patient did have a bowel meant with blood clot later which made her to come to ER. Patient normally gets frequent diarrhea due to short gut syndrome. Otherwise denied any fever or chills. No cough or sputum production. No chest pain or shortness of breath. Denied any recent antibiotic use. CT of the abdomen pelvis showed postsurgical changes without evidence for bowel obstruction. Moderate to large amount of stool throughout the colon. Rectum is grossly unremarkable. Moderate hiatal hernia. Colonic diverticulosis. Hepatic steatosis. Laboratory data showed WBC 8.7 hemoglobin 13.1 and platelets 239 sodium 140 potassium 4.4 chloride 109 bicarb is 21 BUN 14 and creatinine 0.69 blood sugar 106 AST 63 ALT 57 alk phos 96 and albumin 4.4. 03/12/2024 Patient is currently in the ER. Awake alert and oriented x 3. Complains of left lower quadrant abdominal pain. Patient was started on antibiotics for possible diverticulitis. No further episodes of rectal bleeding. Denied any dizziness or lightheadedness. No cough or sputum production. No chest pain or shortness of breath. General surgery is on board. Current medications reviewed. Objective - Vital Signs Vital signs: Vital Signs Temp 97.1 F L 03/14/24 07:49 Pulse 90 03/14/24 09:14 Resp 18 03/14/24 09:14 BP 126/75 03/14/24 07:49 Pulse Ox 94 L 03/14/24 07:49 FiO2 Intake & Output 03/13/24 03/14/24 03/14/24 18:59 06:59 18:59 Other: Voiding Method Toilet Toilet Toilet # Voids 1 4 # Bowel Movements 1 2 - Exam PHYSICAL EXAMINATION: Patient is lying in the bed comfortably, no acute distress, awake alert and oriented.. HEENT: Normocephalic. Neck is supple. Pupils reactive. Nostrils clear. Oral cavity is moist. Neck reveals no JVD, carotid bruits, or thyromegaly. CHEST EXAMINATION: Trachea is central. Symmetrical expansion. Lung jeff clear to auscultation and percussion. CARDIAC: Normal S1, S2 with no gallops. No murmurs ABDOMEN: Soft. Bowel sounds present. Left lower quadrant tenderness and no rigidity or guarding.. No organomegaly. No abdominal bruits. Extremities: reveal no edema. No clubbing or cyanosis Neurologically awake, alert, oriented x3 with well-coordinated movements. No focal deficits noted Skin: No rash or skin lesions. Psychiatric: Coperative. Nonsuicidal Musculoskeletal: No joint swelling or deformity. Normal range of motion. - Labs CBC & Chem 7: 03/14/24 09:00 03/12/24 06:04 Assessment and Plan Assessment: Also acute diverticulitis Acute GI bleed possible diverticulosis versus hemorrhoids. Moderate to large amount of stool throughout the colon. Mild transaminitis Coronary artery disease with prior history of [place] Hearing disorder/deafness Hypertension History of DVT History of bilateral breast cancer, ovarian cancer and uterine cancer History of CVA with no residual weakness Short gut syndrome with history of prior bowel resection Anxiety/depression DVT prophylaxis and GI prophylaxis. With SCDs. Plan: Patient will be guided on IV hydration. Nothing by mouth. Continue to monitor H&H. Patient was started on antibiotics with Levaquin and Flagyl for possible acute diverticulitis. Continue with pain management. Continue pain management and also on Bentyl. General surgery is on board.. Continue to follow closely.
--- NOTE | 2024-03-14 10:16 | P.PN ---
Subjective Progress Note Date: 03/13/24 Patient is a 69-year-old female patient with a history of breast cancer, ovarian cancer, uterine cancer, history of bowel resection, coronary artery disease, GERD, hearing disorder/deafness, hypertension, history of NM and other medical problems presents to ER with complaints of abdominal pain. Abdominal pain is mainly in the left lower quadrant. Patient did have increased diarrhea for the last 2 days with spots of blood. Patient did have a bowel meant with blood clot later which made her to come to ER. Patient normally gets frequent diarrhea due to short gut syndrome. Otherwise denied any fever or chills. No cough or sputum production. No chest pain or shortness of breath. Denied any recent antibiotic use. CT of the abdomen pelvis showed postsurgical changes without evidence for bowel obstruction. Moderate to large amount of stool throughout the colon. Rectum is grossly unremarkable. Moderate hiatal hernia. Colonic diverticulosis. Hepatic steatosis. Laboratory data showed WBC 8.7 hemoglobin 13.1 and platelets 239 sodium 140 potassium 4.4 chloride 109 bicarb is 21 BUN 14 and creatinine 0.69 blood sugar 106 AST 63 ALT 57 alk phos 96 and albumin 4.4. 03/12/2024 Patient is currently in the ER. Awake alert and oriented x 3. Complains of left lower quadrant abdominal pain. Patient was started on antibiotics for possible diverticulitis. No further episodes of rectal bleeding. Denied any dizziness or lightheadedness. No cough or sputum production. No chest pain or shortness of breath. General surgery is on board. 03/13/2024 Patient is currently sitting in the bed. Awake alert and orient x 3. Left lower quadrant abdominal pain is improving. Patient did have an episode 1 bloody bowel meant last night. Denied any dizziness or lightheadedness. No cough or sputum production. Hemoglobin is fairly stable. Laboratory data showed hemoglobin 12.5 and platelets 197. Patient is being continued on antibiotics Levaquin and Flagyl for diverticulitis. Continued on IV hydration with normal saline at 75 cc/h. General surgery is on board. Current medications reviewed. Objective - Vital Signs Vital signs: Vital Signs Temp 97.1 F L 03/14/24 07:49 Pulse 90 03/14/24 09:14 Resp 18 03/14/24 09:14 BP 126/75 03/14/24 07:49 Pulse Ox 94 L 03/14/24 07:49 FiO2 Intake & Output 03/13/24 03/14/24 03/14/24 18:59 06:59 18:59 Other: Voiding Method Toilet Toilet Toilet # Voids 1 4 # Bowel Movements 1 2 - Exam PHYSICAL EXAMINATION: Patient is lying in the bed comfortably, no acute distress, awake alert and oriented.. HEENT: Normocephalic. Neck is supple. Pupils reactive. Nostrils clear. Oral cavity is moist. Neck reveals no JVD, carotid bruits, or thyromegaly. CHEST EXAMINATION: Trachea is central. Symmetrical expansion. Lung jeff clear to auscultation and percussion. CARDIAC: Normal S1, S2 with no gallops. No murmurs ABDOMEN: Soft. Bowel sounds present. Left lower quadrant tenderness and no rigidity or guarding.. No organomegaly. No abdominal bruits. Extremities: reveal no edema. No clubbing or cyanosis Neurologically awake, alert, oriented x3 with well-coordinated movements. No focal deficits noted Skin: No rash or skin lesions. Psychiatric: Coperative. Nonsuicidal Musculoskeletal: No joint swelling or deformity. Normal range of motion. - Labs CBC & Chem 7: 03/14/24 09:00 03/12/24 06:04 Assessment and Plan Assessment: Also acute diverticulitis Acute GI bleed possible diverticulosis versus hemorrhoids. Moderate to large amount of stool throughout the colon. 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 With SCDs. Plan: Patient will be guided on IV hydration. Patient was started on clear liquids... Continue to monitor H&H. Stool softeners. Patient was started on antibiotics with Levaquin and Flagyl for possible acute diverticulitis. Continue pain management and also on Bentyl. General surgery is on board.. Continue to follow closely. Time with Patient: Greater than 30
--- NOTE | 2024-03-14 13:07 | P.PN ---
Subjective Progress Note Date: 03/14/24 SURGICAL PROGRESS NOTE CHIEF COMPLAINT: Abdominal pain HISTORY OF PRESENT ILLNESS: Patient is still reporting left lower quadrant abdominal pain. She did have a large BM that was loose with a few strings of blood. Patient reports she feels about the same. Afebrile. WBC 7.5 hemoglobin up from 12.5-13.8 PHYSICAL EXAM: VITAL SIGNS: Reviewed. GENERAL: Well-developed in no acute distress. HEENT: No sclera icterus. Extraocular movements grossly intact. Moist buccal mucosa. Head is atraumatic, normocephalic. ABDOMEN: Soft. Nondistended. Tenderness in more in the left lower quadrant and the right lower quadrant NEUROLOGIC: Alert and oriented. Cranial nerves II through XII grossly intact. ASSESSMENT: 1. Possible mild acute diverticulitis with diverticular bleed 2. Moderate to large amount of stool throughout the colon 3. Multiple abdominal surgeries 4. Short gut syndrome PLAN: -Continue antibiotics for diverticulitis -Continue clear liquid diet -Continue to monitor -No surgical intervention planned -PT consulted to help with ambulation Physician Elevator Runner note has been reviewed by physician. Signing provider agrees with the documented findings, assessment, and plan of care. Objective - Vital Signs Vital signs: Vital Signs Temp 97.1 F L 03/14/24 07:49 Pulse 90 03/14/24 09:14 Resp 18 03/14/24 09:14 BP 126/75 03/14/24 07:49 Pulse Ox 94 L 03/14/24 07:49 FiO2 Intake & Output 03/13/24 03/14/24 03/14/24 18:59 06:59 18:59 Other: Voiding Method Toilet Toilet Toilet # Voids 1 4 # Bowel Movements 1 2 - Labs CBC & Chem 7: 03/14/24 09:00 03/12/24 06:04
[2024-03-14] MEDS: HYDROmorphone 1 MG/ML 1 ML SYRINGE IVP PRN (17:46)
[2024-03-14 21:44] LABS: Appearance,Urine Clear (Clear); Bilirubin,Urine Negative (Negative); Blood,Urine Negative (Negative); Color,Urine Yellow; Glucose,Urine (UA) Negative (Negative); Ketones,Urine 2+ (Negative); Leukocyte Esterase,Urine Negative (Negative); Nitrite,Urine Negative (Negative); PH, Urine 6.5 (5.0-8.0); Protein,Urine Trace (Negative); Specific Gravity,Urine 1.015 (1.001-1.035); Urobilinogen,Urine <2.0 mg/dL (<2.0)
--- NOTE | 2024-03-15 02:54 | P.PN ---
Subjective Progress Note Date: 03/14/24 Patient is a 69-year-old female patient with a history of breast cancer, ovarian cancer, uterine cancer, history of bowel resection, coronary artery disease, GERD, hearing disorder/deafness, hypertension, history of MA and other medical problems presents to ER with complaints of abdominal pain. Abdominal pain is mainly in the left lower quadrant. Patient did have increased diarrhea for the last 2 days with spots of blood. Patient did have a bowel meant with blood clot later which made her to come to ER. Patient normally gets frequent diarrhea due to short gut syndrome. Otherwise denied any fever or chills. No cough or sputum production. No chest pain or shortness of breath. Denied any recent antibiotic use. CT of the abdomen pelvis showed postsurgical changes without evidence for bowel obstruction. Moderate to large amount of stool throughout the colon. Rectum is grossly unremarkable. Moderate hiatal hernia. Colonic diverticulosis. Hepatic steatosis. Laboratory data showed WBC 8.7 hemoglobin 13.1 and platelets 239 sodium 140 potassium 4.4 chloride 109 bicarb is 21 BUN 14 and creatinine 0.69 blood sugar 106 AST 63 ALT 57 alk phos 96 and albumin 4.4. 03/12/2024 Patient is currently in the ER. Awake alert and oriented x 3. Complains of left lower quadrant abdominal pain. Patient was started on antibiotics for possible diverticulitis. No further episodes of rectal bleeding. Denied any dizziness or lightheadedness. No cough or sputum production. No chest pain or shortness of breath. General surgery is on board. 03/13/2024 Patient is currently sitting in the bed. Awake alert and orient x 3. Left lower quadrant abdominal pain is improving. Patient did have an episode 1 bloody bowel meant last night. Denied any dizziness or lightheadedness. No cough or sputum production. Hemoglobin is fairly stable. Laboratory data showed hemoglobin 12.5 and platelets 197. Patient is being continued on antibiotics Levaquin and Flagyl for diverticulitis. Continued on IV hydration with normal saline at 75 cc/h. General surgery is on board. 03/14/2024 Patient is still complaining of left lower quadrant abdominal pain. Also complains of dysuria and feels like she has been having urinary tract infection. Otherwise patient did have a bowel movement with loose stools and strains of blood. Patient has been afebrile. No nausea or vomiting. Laboratory data showed WBC 7.5 hemoglobin 13.8, platelets 153 Urinalysis was ordered. Current medications reviewed. Objective - Vital Signs Vital signs: Vital Signs Temp 97.6 F 03/14/24 14:00 Pulse 83 03/14/24 14:00 Resp 18 03/14/24 14:00 BP 112/64 03/14/24 14:00 Pulse Ox 91 L 03/14/24 14:00 FiO2 Intake & Output 03/13/24 03/14/24 03/14/24 18:59 06:59 18:59 Other: Voiding Method Toilet Toilet Toilet # Voids 1 4 # Bowel Movements 1 2 - Exam PHYSICAL EXAMINATION: Patient is lying in the bed comfortably, no acute distress, awake alert and oriented.. HEENT: Normocephalic. Neck is supple. Pupils reactive. Nostrils clear. Oral cavity is moist. Neck reveals no JVD, carotid bruits, or thyromegaly. CHEST EXAMINATION: Trachea is central. Symmetrical expansion. Lung jeff clear to auscultation and percussion. CARDIAC: Normal S1, S2 with no gallops. No murmurs ABDOMEN: Soft. Bowel sounds present. Left lower quadrant tenderness and no rigidity or guarding.. No organomegaly. No abdominal bruits. Extremities: reveal no edema. No clubbing or cyanosis Neurologically awake, alert, oriented x3 with well-coordinated movements. No focal deficits noted Skin: No rash or skin lesions. Psychiatric: Coperative. Nonsuicidal Musculoskeletal: No joint swelling or deformity. Normal range of motion. - Labs CBC & Chem 7: 03/14/24 09:00 03/12/24 06:04 Assessment and Plan Assessment: Also acute diverticulitis Acute GI bleed possible diverticulosis versus hemorrhoids. Moderate to large amount of stool throughout the colon. 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 With SCDs. Plan: Patient will be guided on IV hydration. Patient was started on clear liquids... Continue to monitor H&H. Stool softeners. Patient did have a bowel movement. Patient was started on antibiotics with Levaquin and Flagyl for possible acute diverticulitis. Urinalysis was ordered. Patient is already on antibiotics. Continue pain management and also on Bentyl. General surgery is on board.. Continue to follow closely. Time with Patient: Greater than 30
[2024-03-15 05:14] LABS: Basophils % (A) 0 %; Eosinophils # (A) 0.2 k/uL (0-0.7); Eosinophils % (A) 4 %; HCT 36.9 % (34.0-46.0); HGB 12.1 gm/dL (11.4-16.0); Lymphocytes % (A) 18 %; MCHC 32.8 g/dL (31.0-37.0); MCV 88.4 fL (80.0-100.0); Mean Platelet Volume 7.9; Monocytes # (A) 0.4 k/uL (0-1.0); Monocytes % (A) 8 %; Neutrophils # (A) 3.7 k/uL (1.3-7.7); Neutrophils % (A) 68 %; Platelet Count 160 k/uL (150-450); RBC 4.18 m/uL (3.80-5.40); RDW 13.8 % (11.5-15.5); WBC 5.5 k/uL (3.8-10.6)
[2024-03-15 05:32] LABS: African American GFR (CKD) >90 (>60 ml/min/1.73 sqM); Anion Gap 6 mmol/L; Blood Urea Nitrogen 4 mg/dL (7-17); Calcium 8.5 mg/dL (8.4-10.2); Carbon Dioxide 20 mmol/L (22-30); Chloride 113 mmol/L (98-107); Glucose 85 mg/dL (74-99); Non-African American GFR(CKD) >90 (>60 ml/min/1.73 sqM); Potassium 2.9 mmol/L (3.5-5.1); Sodium 139 mmol/L (137-145)
[2024-03-15] MEDS ORDERED: Potassium Replacement Protocol 1 EACH MISC MISCELLANE PRN (09:55)
--- NOTE | 2024-03-15 10:39 | P.PN ---
Subjective Progress Note Date: 03/15/24 Principal diagnosis: Abdominal pain Patient says she feels better today. White blood cell count 5.5, potassium 2.9. She has had some diarrhea. Tolerating clears. Hungry. Objective - Vital Signs Vital signs: Vital Signs Temp 98.3 F 03/15/24 07:06 Pulse 101 H 03/15/24 07:06 Resp 18 03/15/24 07:06 BP 139/77 03/15/24 07:06 Pulse Ox 95 03/15/24 07:06 FiO2 Intake & Output 03/14/24 03/15/24 03/15/24 18:59 06:59 18:59 Other: Voiding Method Toilet Toilet # Voids 5 3 # Bowel Movements 2 - Exam Abdomen: Soft, nontender, nondistended - Labs CBC & Chem 7: 03/15/24 05:02 03/15/24 05:02 Labs: Abnormal Lab Results - Last 24 Hours (Table) 03/14/24 03/15/24 Range/Units 21:00 05:02 Potassium 2.9 L (3.5-5.1) mmol/L Chloride 113 H (98-107) mmol/L Carbon Dioxide 20 L (22-30) mmol/L BUN 4 L (7-17) mg/dL Creatinine 0.49 L (0.52-1.04) mg/dL Urine Protein Trace H (Negative) Urine Ketones 2+ H (Negative) Assessment and Plan (1) Abdominal pain Narrative/Plan: 69-year-old female with abdominal pain and recent bleeding. Etiology remains unclear. Advance to low fiber diet. If tolerates could discharge from our point of view. Current Visit: Yes Status: Acute Code(s): R10.9 - UNSPECIFIED ABDOMINAL PAIN SNOMED Code(s): 12534222
[2024-03-15] MEDS: POTASSIUM CHLORIDE ER 20 MEQ TAB.ER PO SCH (11:08)
--- NOTE | 2024-03-15 16:26 | P.PN ---
Subjective Progress Note Date: 03/15/24 Interval History: Patient is a 69-year-old female patient with a history of breast cancer, ovarian cancer, uterine cancer, history of bowel resection, coronary artery disease, GERD, hearing disorder/deafness, hypertension, history of [place] and other medical problems presents to ER with complaints of abdominal pain. Abdominal pain is mainly in the left lower quadrant. Patient did have increased diarrhea for the last 2 days with spots of blood. Patient did have a bowel meant with blood clot later which made her to come to ER. Patient normally gets frequent diarrhea due to short gut syndrome. Otherwise denied any fever or chills. No cough or sputum production. No chest pain or shortness of breath. Denied any recent antibiotic use. CT of the abdomen pelvis showed postsurgical changes without evidence for bowel obstruction. Moderate to large amount of stool throughout the colon. Rectum is grossly unremarkable. Moderate hiatal hernia. Colonic diverticulosis. Hepatic steatosis. Laboratory data showed WBC 8.7 hemoglobin 13.1 and platelets 239 sodium 140 potassium 4.4 chloride 109 bicarb is 21 BUN 14 and creatinine 0.69 blood sugar 106 AST 63 ALT 57 alk phos 96 and albumin 4.4. 03/12/2024 Patient is currently in the ER. Awake alert and oriented x 3. Complains of left lower quadrant abdominal pain. Patient was started on antibiotics for possible diverticulitis. No further episodes of rectal bleeding. Denied any dizziness or lightheadedness. No cough or sputum production. No chest pain or shortness of breath. General surgery is on board. 03/13/2024 Patient is currently sitting in the bed. Awake alert and orient x 3. Left lower quadrant abdominal pain is improving. Patient did have an episode 1 bloody bowel meant last night. Denied any dizziness or lightheadedness. No cough or sputum production. Hemoglobin is fairly stable. Laboratory data showed hemoglobin 12.5 and platelets 197. Patient is being continued on antibiotics Levaquin and Flagyl for dive rticulitis. Continued on IV hydration with normal saline at 75 cc/h. General surgery is on board. 03/14/2024 Patient is still complaining of left lower quadrant abdominal pain. Also com [place] of dysuria and feels like she has been having urinary tract infection. Otherwise patient did have a bowel movement with loose stools and strains of blood. Patient has been afebrile. No nausea or vomiting. Laboratory data showed WBC 7.5 hemoglobin 13.8, platelets 153 Urinalysis was ordered. 03/15/2024 Patient was seen and examined today, remained afebrile, pulse rate 90, respiratory rate 17, blood pressure stable 131/78, saturating 99% on room air. Continues complain of left lower quadrant abdominal pain. Labs reviewed, CBC unremarkable, hemoglobin stable. Potassium was low, replaced, repeat potassium 3.7. UA unremarkable. On Levaquin and Flagyl for acute diverticulitis. Gene ral surgery following. 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 Continue same treatment. Further recommendations as per clinical course of the patient PHYSICAL EXAMINATION: GENERAL: The patient is A&O x3, NAD HEENT: EOMI, Sclerae anicteric, Moist Mucous membranes Neck: Supple, Non tender, No JVD PULMONARY: Equal breath souds B/L, No wheezing, No crackles. CARDIOVASCULAR: S1, S2 present. No murmurs, rubs, or gallops. ABDOMEN: Soft, LLQ tender, nondistended, normoactive bowel sounds. No guarding or rebound tenderness. MUSCULOSKELETAL: No edema, No cyanosis. No clubbing. Normal ROM. Intact peripheral pulses. EXTREMITIES: No cyanosis, clubbing, or pedal edema. NEUROLOGICAL: CN 2-12 grossly intact. No FND Skin: No Rash REVIEW OF SYSTEMS: CONSTITUTIONAL: No fever or chills. CARDIOVASCULAR: No chest pain, palpitations or syncope. PULMONARY: No shortness of breath, no cough, sore throat. GASTROINTESTINAL: No nausea, vomiting, diarrhea, abdominal pain. : No Dysuria, urgency, frequency. Extremities: No edema. NEUROLOGICAL: No headaches, no weakness, or numbness Dictation was produced using dragon dictation software. please excuse any grammatical, word or spelling errors. Objective - Vital Signs Vital signs: Vital Signs Temp 98.1 F 03/15/24 13:21 Pulse 90 03/15/24 13:21 Resp 17 03/15/24 13:21 BP 131/78 03/15/24 13:21 Pulse Ox 99 03/15/24 13:21 FiO2 Intake & Output 03/14/24 03/15/24 03/15/24 18:59 06:59 18:59 Output Total 2 Balance -2 Output: Urine 2 Other: Voiding Method Toilet Toilet Toilet # Voids 5 3 # Bowel Movements 2 1 - Labs CBC & Chem 7: 03/15/24 05:02 03/15/24 15:14 Labs: Abnormal Lab Results - Last 24 Hours (Table) 03/14/24 03/15/24 Range/Units 21:00 05:02 Potassium 2.9 L (3.5-5.1) mmol/L Chloride 113 H (98-107) mmol/L Carbon Dioxide 20 L (22-30) mmol/L BUN 4 L (7-17) mg/dL Creatinine 0.49 L (0.52-1.04) mg/dL Urine Protein Trace H (Negative) Urine Ketones 2+ H (Negative)
[2024-03-15] MEDS: ALPRAZolam 0.25 MG TAB PO PRN (21:25)
[2024-03-16] MEDS: DICYCLOMINE 10 MG CAP PO PRN (01:19)
[2024-03-16 09:15] VITALS: BP 135/82; PULSE 94; RESP 20; TEMP 98.6
--- NOTE | 2024-03-16 09:47 | P.PN ---
Subjective Progress Note Date: 03/16/24 Principal diagnosis: Abdominal pain Patient states she is still having discomfort. Apparently they could not get an IV in her last night and she is quite anxious to go home today. Patient is requesting pain medicine for discharge. Potassium improved. No nausea or vomiting. Objective - Vital Signs Vital signs: Vital Signs Temp 98.6 F 03/16/24 07:13 Pulse 94 03/16/24 07:13 Resp 20 03/16/24 07:13 BP 135/82 03/16/24 07:13 Pulse Ox 93 L 03/16/24 07:13 FiO2 Intake & Output 03/15/24 03/16/24 03/16/24 18:59 06:59 18:59 Output Total 2 Balance -2 Output: Urine 2 Other: Voiding Method Toilet Toilet # Voids 3 3 # Bowel Movements 1 3 - Exam Abdomen: Soft, nondistended, mild left-sided tenderness - Labs CBC & Chem 7: 03/15/24 05:02 03/15/24 15:14 Assessment and Plan (1) Abdominal pain Narrative/Plan: 69-year-old female with abdominal discomfort and recent rectal bleeding. Rectal bleeding has stopped. Stable for discharge from our point of view. Follow-up with Dr. Artis in the office. Current Visit: Yes Status: Acute Code(s): R10.9 - UNSPECIFIED ABDOMINAL PAIN SNOMED Code(s): 90124011
[2024-03-16] MEDS: traMADol 50 MG TAB PO PRN (10:15)
--- NOTE | 2024-03-16 12:35 | P.DS ---
Providers Date of admission: 03/11/24 14:59 Expected date of discharge: 03/16/24 Attending physician: David Marion Consults: 03/11/24 14:57 Consult Physician Urgent Consulting Provider: Giovani Artis Consult Reason/Comments: abp, gi bleed Do you want consulting provider notified?: Yes Primary care physician: Bia May Hospital Course: Discharge diagnoses: Acute diverticulitis: Left lower quadrant pain: Lower GI bleed: Suspect hemorrhoidal versus diverticulosis Constipation with large amount of stool in colon Mild transaminitis History of CAD Hearing disorder/deafness Hypertension History of DVT History of bilateral breast cancer, ovarian cancer and uterine cancer History of CVA with no residual weakness 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 Received IV Levaquin and Flagyl during hospitalization, continued on p.o. Levaquin and Flagyl for 7 days at discharge. Symptoms improved. General surgery was consulted, recommended conservative management. Hospital course: Patient is a 69-year-old female patient with a history of breast cancer, ovarian cancer, uterine cancer, history of bowel resection, coronary artery disease, GERD, hearing disorder/deafness, hypertension, history of [place] and other medical problems presents to ER with complaints of abdominal pain. Abdominal pain is mainly in the left lower quadrant. Patient did have increased diarrhea for the last 2 days with spots of blood. Patient did have a bowel meant with blood clot later which made her to come to ER. Patient normally gets frequent diarrhea due to short gut syndrome. Otherwise denied any fever or chills. No cough or sputum production. No chest pain or shortness of breath. Denied any recent antibiotic use. CT of the abdomen pelvis showed postsurgical changes without evidence for bowel obstruction. Moderate to large amount of stool throughout the colon. Rectum is grossly unremarkable. Moderate hiatal hernia. Colonic diverticulosis. Hepatic steatosis. Laboratory data showed WBC 8.7 hemoglobin 13.1 and platelets 239 sodium 140 potassium 4.4 chloride 109 bicarb is 21 BUN 14 and creatinine 0.69 blood sugar 106 AST 63 ALT 57 alk phos 96 and albumin 4.4. 03/12/2024 Patient is currently in the ER. Awake alert and oriented x 3. Complains of left lower quadrant abdominal pain. Patient was started on antibiotics for possible diverticulitis. No further episodes of rectal bleeding. Denied any dizziness or lightheadedness. No cough or sputum production. No chest pain or shortness of breath. General surgery is on board. 03/13/2024 Patient is currently sitting in the bed. Awake alert and orient x 3. Left lower quadrant abdominal pain is improving. Patient did have an episode 1 bloody bowel meant last night. Denied any dizziness or lightheadedness. No cough or sputum production. Hemoglobin is fairly stable. Laboratory data showed hemoglobin 12.5 and platelets 197. Patient is being continued on antibiotics Levaquin and Flagyl for diverticulitis. Continued on IV hydration with normal saline at 75 cc/h. General surgery is on board. 03/14/2024 Patient is still complaining of left lower quadrant abdominal pain. Also complains of dysuria and feels like she has been having urinary tract infection. Otherwise patient did have a bowel movement with loose stools and strains of blood. Patient has been afebrile. No nausea or vomiting. Laboratory data showed WBC 7.5 hemoglobin 13.8, platelets 153 Urinalysis was ordered. 03/15/2024 Patient was seen and examined today, remained afebrile, pulse rate 90, respiratory rate 17, blood pressure stable 131/78, saturating 99% on room air. Continues complain of left lower quadrant abdominal pain. Labs reviewed, CBC unremarkable, hemoglobin stable. Potassium was low, replaced, repeat potassium 3.7. UA unremarkable. On Levaquin and Flagyl for acute diverticulitis. General surgery following. 03/16/24--patient was seen and examined today, remained afebrile. Vital stable. Patient feeling better today. Symptoms improved. Diarrhea improving. Okay to discharge per general surgery. Patient continued on Levaquin and Flagyl for 7 days. Follow-up with PCP in 1 week. Follow-up with general surgery as outpatient. PHYSICAL EXAMINATION: GENERAL: The patient is A&O x3, NAD HEENT: EOMI, Sclerae anicteric, Moist Mucous membranes Neck: Supple, Non tender, No JVD PULMONARY: Equal breath souds B/L, No wheezing, No crackles. CARDIOVASCULAR: S1, S2 present. No murmurs, rubs, or gallops. ABDOMEN: Soft, nontender, nondistended, normoactive bowel sounds. No guarding or rebound tenderness. MUSCULOSKELETAL: No edema, No cyanosis. No clubbing. Normal ROM. Intact peripheral pulses. EXTREMITIES: No cyanosis, clubbing, or pedal edema. NEUROLOGICAL: CN 2-12 grossly intact. No FND SKIN: No rashes. Dictation was produced using [employer] dictation software. please excuse any grammatical, word or spelling errors. Patient Condition at Discharge: Fair Plan - Discharge Summary Discharge Rx Participant: Yes New Discharge Prescriptions: New Levofloxacin [Levaquin] 500 mg PO DAILY 1 Days #7 tab traMADol HCl [Ultram] 50 mg PO Q6H PRN #6 tab PRN Reason: Pain metroNIDAZOLE [Flagyl] 500 mg PO BID #14 tab Continue Pantoprazole Sodium [Protonix] 80 mg PO DAILY Metoprolol Succinate (ER) [Toprol XL] 100 mg PO DAILY Diphenoxylate HCl/Atropine [Lomotil 2.5-0.025 mg Tablet] 1 tab PO TID SUMAtriptan succinate [Imitrex] 100 mg PO BID PRN PRN Reason: Migraine Headache Potassium Chloride ER [K-Dur 20] 40 meq PO DAILY Aspirin EC [Ecotrin Low Dose] 81 mg PO DAILY Brivaracetam [Briviact] 50 mg PO BID Furosemide [Lasix] 40 mg PO DAILY Magnesium Oxide [Magnesium] 500 mg PO DAILY Cholecalciferol [Vitamin D3 (25 Mcg = 1000 Iu)] 25 mcg PO DAILY Cyanocobalamin [Vitamin B-12 Injection] 1,000 mcg IM SA Ondansetron Odt [Zofran ODT] 8 mg PO Q8HR PRN PRN Reason: Nausea Cyclobenzaprine [Flexeril] 10 mg PO TID PRN PRN Reason: Pain lisinopriL [Zestril] 20 mg PO BID diazePAM [Valium] 5 mg VAGINAL BID PRN PRN Reason: Anxiety Dicyclomine [Bentyl] 10 mg PO TID PRN PRN Reason: Gi Upset Benzonatate [Tessalon Perle] 200 mg PO TID PRN PRN Reason: Cough Zinc Gluconate [Zinc] 50 mg PO DAILY Ascorbic Acid [Vitamin C] 500 mg PO DAILY Discharge Medication List Metoprolol Succinate (ER) [Toprol XL] 100 mg PO DAILY 08/01/18 [History] Pantoprazole Sodium [Protonix] 80 mg PO DAILY 08/01/18 [History] Diphenoxylate HCl/Atropine [Lomotil 2.5-0.025 mg Tablet] 1 tab PO TID 03/31/20 [History] Cyanocobalamin [Vitamin B-12 Injection] 1,000 mcg IM SA 03/01/22 [History] Potassium Chloride ER [K-Dur 20] 40 meq PO DAILY 11/30/22 [History] SUMAtriptan succinate [Imitrex] 100 mg PO BID PRN 11/30/22 [History] Ondansetron Odt [Zofran ODT] 8 mg PO Q8HR PRN 02/11/23 [History] Aspirin EC [Ecotrin Low Dose] 81 mg PO DAILY 05/03/23 [History] Cyclobenzaprine [Flexeril] 10 mg PO TID PRN 05/03/23 [History] Ascorbic Acid [Vitamin C] 500 mg PO DAILY 03/11/24 [History] Benzonatate [Tessalon Perle] 200 mg PO TID PRN 03/11/24 [History] Brivaracetam [Briviact] 50 mg PO BID 03/11/24 [History] Cholecalciferol [Vitamin D3 (25 Mcg = 1000 Iu)] 25 mcg PO DAILY 03/11/24 [History] Dicyclomine [Bentyl] 10 mg PO TID PRN 03/11/24 [History] Furosemide [Lasix] 40 mg PO DAILY 03/11/24 [History] Magnesium Oxide [Magnesium] 500 mg PO DAILY 03/11/24 [History] Zinc Gluconate [Zinc] 50 mg PO DAILY 03/11/24 [History] diazePAM [Valium] 5 mg VAGINAL BID PRN 03/11/24 [History] lisinopriL [Zestril] 20 mg PO BID 03/11/24 [History] Levofloxacin [Levaquin] 500 mg PO DAILY 1 Days #7 tab 03/16/24 [Rx] metroNIDAZOLE [Flagyl] 500 mg PO BID #14 tab 03/16/24 [Rx] traMADol HCl [Ultram] 50 mg PO Q6H PRN #6 tab 03/16/24 [Rx] Follow up Appointment(s)/Referral(s): Bia May MD [Primary Care Provider] - 1-2 days [facility], [NON-STAFF] - As Needed Giovani Artis MD [STAFF PHYSICIAN] - 2 Weeks Activity/Diet/Wound Care/Special Instructions: MEDS IN PHARMACY. pt must follow up with dr mehta in office in order for the pt to have home care. Discharge Disposition: HOME SELF-CARE
== END 2024-03-16 13:36 | disposition home or self-care (01) ==
LOC: EC 13:10 → 3SCARD 14:59 → 4SSUR 03-12 16:14
PROVIDERS: ADMIT Internal Medicine; ATTEND Internal Medicine
DX: K57.33 Diverticulitis of large intestine without perforation or abscess with bleeding (principal); K44.9 Diaphragmatic hernia without obstruction or gangrene; K90.829 Short bowel syndrome, unspecified; I25.10 Atherosclerotic heart disease of native coronary artery without angina pectoris; K21.9 Gastro-esophageal reflux disease without esophagitis; K76.0 Fatty (change of) liver, not elsewhere classified; H91.90 Unspecified hearing loss, unspecified ear; D33.3 Benign neoplasm of cranial nerves; I11.0 Hypertensive heart disease with heart failure; I50.9 Heart failure, unspecified; I25.2 Old myocardial infarction; F41.9 Anxiety disorder, unspecified; F32.A Depression, unspecified; R30.0 Dysuria; Z79.82 Long term (current) use of aspirin; Z79.2 Long term (current) use of antibiotics; Z79.899 Other long term (current) drug therapy; Z85.3 Personal history of malignant neoplasm of breast; Z85.42 Personal history of malignant neoplasm of other parts of uterus; Z85.43 Personal history of malignant neoplasm of ovary; Z86.718 Personal history of other venous thrombosis and embolism; Z86.73 Personal history of transient ischemic attack (TIA), and cerebral infarction without residual deficits; Z88.0 Allergy status to penicillin; Z88.8 Allergy status to other drugs, medicaments and biological substances; Z90.49 Acquired absence of other specified parts of digestive tract
CPT/HCPCS: 96376 ×6; 96366 ×4; 96375 ×2; 96361 ×2; 96365; 99285; 36415; 36410; 76937; 80053 ×2; 80048; 84132; 85025 ×4; 85027; 85610; 85730; 81003; 74177; G0378 ×7; J2060; J1171 ×8; J2405 ×3; J1956 ×4; Q9967; J1836 ×4; J2470 ×5

== ENCOUNTER → 2024-05-08 | Outpatient (CLI) | payer MEDICARE, OTHER ==
[2024-05-08 10:51] LABS: African American GFR (CKD) >90 (>60 ml/min/1.73 sqM); Blood Urea Nitrogen 17 mg/dL (7-17); Non-African American GFR(CKD) 88 (>60 ml/min/1.73 sqM)
--- NOTE | 2024-05-08 11:47 | CT ---
EXAMINATION TYPE: CT abdomen pelvis w con DATE OF EXAM: 05/08/2024 COMPARISON: 03/11/2024 CLINICAL INDICATION: Female, 69 years old with history of K57.32 diverticulitis; PHH, diverticulitis. reoccuring SBO, prior on pacs. TECHNIQUE: Performed with Oral Contrast and with IV Contrast, patient injected with 85ml mL of Isovue 300. CT DLP: 988.[address] CTDI: mGy Automated exposure control for dose reduction was used. FINDINGS: The lung bases are clear. There are bilateral breast implants. The left implant is heavily calcified. There is a moderate to large hiatal hernia. There is surgical absence of the gallbladder. There is no biliary ductal dilatation. There is no focal mass or organomegaly involving the liver, pancreas, spleen or adrenal glands. There is mild liver steatosis. There is no solid renal mass or hydronephrosis and there is homogeneous contrast enhancement of the r enal parenchyma. The caliber the abdominal aorta is normal is no retroperitoneal adenopathy or hemorr nick. The bowel loops are normal in caliber and there is no evidence of dilatation or obstruction. No infla mmatory changes are identified in the bowel wall or mesentery. There is no free intraperitoneal air or fluid. No pelvic mass, free fluid, abscess or adenopathy. There are surgical absence of the uterus. There are mild compression fractures in the lower thoracic spine including T9 and T11. There are post surgical changes of lumbar fusion from L4 through S1. IMPRESSION: 1. No acute changes within the abdomen or pelvis. No CT evidence of acute diverticulitis, bowel obstr uction, abscess, free intraperitoneal air or fluid. 2. Stable moderate to large hiatal hernia. 3. Postsurgical changes as described above. [facility], , 05/08/2024 11:45 AM
== END | disposition home or self-care (01) ==
LOC: RADCTMAIN 09:14
PROVIDERS: ATTEND Surgery
DX: K57.32 Diverticulitis of large intestine without perforation or abscess without bleeding (principal); K44.9 Diaphragmatic hernia without obstruction or gangrene; Z98.890 Other specified postprocedural states
CPT/HCPCS: 82565; 84520; 74177; 36415; Q9967

== ENCOUNTER → 2024-05-16 | Outpatient (CLI) | payer MEDICARE, OTHER ==
--- NOTE | 2024-05-19 07:00 | US ---
EXAMINATION TYPE: US extremity nonvasc mass LT DATE OF EXAM: 05/16/2024 COMPARISON: NONE CLINICAL INDICATION: Female, 69 years old with history of R22.42 LOCALIZED SWELLING, MASS AND LUMP, L EFT LOW; Lump on left branch. TECHNIQUE: Grayscale imaging of the area of lump in the left branch/anterior leg FINDINGS: Scanned area of concern no abnormalities seen. No organizing fluid collection or mass. IMPRESSION: No evidence for organizing fluid collection or mass. [facility], , 05/19/2024 6:58 AM
== END | disposition home or self-care (01) ==
LOC: RADUSWWP 13:19
PROVIDERS: ATTEND Family Medicine
DX: R22.42 Localized swelling, mass and lump, left lower limb (principal)

== ENCOUNTER → 2024-07-04 | Outpatient (CLI) | payer MEDICARE, OTHER ==
[2024-07-04 10:17] LABS: Appearance,Urine Cloudy (Clear); Bilirubin,Urine Negative (Negative); Blood,Urine Negative (Negative); Calcium Oxalate Crystals,Urine Occasional /hpf; Color,Urine Light Yellow; Glucose,Urine (UA) Negative (Negative); Hyaline Casts,Urine 66 /lpf (0-2); Ketones,Urine Negative (Negative); Leukocyte Esterase,Urine Negative (Negative); Mucus,Urine Few /hpf; Nitrite,Urine Positive (Negative); PH, Urine 5.5 (5.0-8.0); Protein,Urine Negative (Negative); RBC,Urine 1 /hpf (0-5); Specific Gravity,Urine 1.018 (1.001-1.035); Squamous Epithelial Cell,Urine 1 /hpf (0-4); Urobilinogen,Urine <2.0 mg/dL (<2.0); WBC,Urine 5 /hpf (0-5)
[2024-07-04 10:20] LABS: Basophils % (A) 1 %; Eosinophils # (A) 0.3 k/uL (0-0.7); Eosinophils % (A) 3 %; HCT 47.1 % (34.0-46.0); HGB 14.9 gm/dL (11.4-16.0); Lymphocytes # (A) 1.7 k/uL (1.0-4.8); Lymphocytes % (A) 21 %; MCH 27.8 pg (25.0-35.0); MCHC 31.6 g/dL (31.0-37.0); MCV 87.9 fL (80.0-100.0); Mean Platelet Volume 8.8; Monocytes # (A) 0.6 k/uL (0-1.0); Monocytes % (A) 7 %; Neutrophils # (A) 5.5 k/uL (1.3-7.7); Neutrophils % (A) 67 %; Platelet Count 216 k/uL (150-450); RBC 5.36 m/uL (3.80-5.40); RDW 13.8 % (11.5-15.5); WBC 8.2 k/uL (3.8-10.6)
[2024-07-04 18:02] LABS: Chol/HDL Ratio 5.61 Ratio
[2024-07-04 18:45] LABS: ALT 46 U/L (8-44); AST 53 U/L (13-35); Albumin 4.6 g/dL (3.8-4.9); Albumin/Globulin Ratio 1.59 Ratio (1.60-3.17); Alkaline Phosphatase 156 U/L (41-126); BUN/Creat Ratio 26.25 Ratio (12.00-20.00); Calcium 9.8 mg/dL (8.7-10.3); Carbon Dioxide 21.2 mmol/L (21.6-31.8); Chloride 101 mmol/L (96-109); Globulin 2.9 g/dL (1.6-3.3); Glucose 88 mg/dL (70-110); Potassium 5.8 mmol/L (3.5-5.5); Sodium 140 mmol/L (135-145); Total Bilirubin 0.2 mg/dL (0.3-1.2); Total Protein 7.5 g/dL (6.2-8.2)
== END | disposition home or self-care (01) ==
LOC: LABWHC1 08:22
PROVIDERS: ATTEND Family Medicine
DX: I11.0 Hypertensive heart disease with heart failure (principal); I50.9 Heart failure, unspecified; N39.0 Urinary tract infection, site not specified
CPT/HCPCS: 36415; 80053; 80061; 81001; 83721; 84443; 85025

== ENCOUNTER → 2024-07-16 | Outpatient (CLI) | payer MEDICARE, OTHER ==
[2024-07-16 13:37] LABS: T4, Free (Free Thyroxine) 0.86 ng/dL (0.78-2.19)
--- NOTE | 2024-07-16 13:59 | BD ---
EXAMINATION TYPE: Axial Bone Density DATE OF EXAM: 07/16/2024 CLINICAL HISTORY: 69 years old Female. ICD-10 CODE: Z78.0 ASYMP LES STATE , Additional History: Height: 59.5 Weight: 136 FRAX RISK QUESTIONS: Family History (Parent hip fracture): no History of Fracture in Adulthood: yes Secondary Osteoporosis: no 3. Menopause before 45: yes RISK FACTORS HISTORY OF: Spine Fracture: yes When: unsure awhile ago Surgery to Spine: yes When: unsure awhile ago MEDICATIONS: Thyroid Medications: no Osteoporosis Medications: no EXAM MEASUREMENTS: Bone mineral densitometry was performed using the Snapchat System. Bone mineral density about the R hip (g/cm2): 0.707 Bone mineral density about the L hip (g/cm2): 0.718 T Score values are as follows: -----R Neck: -2.8 -----L Neck: -2.6 -----R Total: -2.4 -----L Total: -2.3 Z Score values are as follows: -----R Neck: -1.0 -----L Neck: -0.8 -----R Total: -0.8 -----L Total: -0.7 Bone mineral density baseline Bone mineral density about the L Wrist (g/cm2): 0.473 T Score values are as follows: -----Dist. R+U: -3.1 -----Prox. R+U: -2.9 -----Radius total: -3.3 Z Score values are as follows: -----Dist. R+U: -1.2 -----Prox. R+U: -1.0 -----Radius total: -1.4 Bone mineral density baseline FRAX%s: The graph provided illustrates a 26.9% chance for a major osteoporotic fx and a 8.4% chance f or the hips probability for fx in 10 years time. IMPRESSION: Osteoporosis (T Score less than -2.5). There is increased fracture risk and therapy is usually indicated based on age. Re-Screen 1-2 years. NOTE: T-SCORE=SD OF THE YOUNG ADULT MEAN. [facility], , 07/16/2024 1:56 PM
[2024-07-16 21:08] LABS: Chol/HDL Ratio 8.38 Ratio; HDL Cholesterol 33.9 mg/dL (40.00-60.00); VLDL Calculation 95.4 mg/dL (5.00-40.00)
[2024-07-16 21:20] LABS: LDL Cholesterol,Direct Reflex 79.9 mg/dL (0.00-129.00)
--- NOTE | 2024-07-17 13:14 | MM ---
Reason for Exam: Clinical finding. Last mammogram was performed 1 year(s) and 4 month(s) ago. Patient History: Menarche at age 13. First Full-Term at age 16. Hysterectomy at age 22. Postmenopausal. Breast cancer, bilateral, age 1. Mastectomy on the Left side. Mastectomy on the Right side. Paternal cousin had breast cancer, age 48. Paternal cousin had breast cancer, age 65. Tissue Density: There are scattered areas of fibroglandular density. Findings: Bilateral implants appear stable. No mass or distortion. Overall Assessment: Benign, BI-RAD 2 Management: Screening Mammogram of both breasts in 1 year. . Results were given to the patient verbally at the time of exam. Patient should continue monthly self-breast exams. A clinical breast exam by your physician is recommended on an annual basis. This exam should not preclude additional follow-up of suspicious palpable abnormalities. Note on Rosalinda scores and lifetime risk: 1. A Rosalinda score greater than 3% is considered moderate risk. If this is the case, consider specialist referral to assess eligibility for a risk reducing agent. 2. If overall lifetime risk for the development of breast cancer is 20% or higher, the patient may qualify for future screening with alternating mammogram and breast MRI. [facility], , 07/16/2024 1:41 PM. Electronically signed and approved by: Maxx Gonzalez M.D. Radiologis
== END | disposition home or self-care (01) ==
LOC: RADBDWWP 12:17
PROVIDERS: ATTEND Family Medicine
DX: R92.8 Other abnormal and inconclusive findings on diagnostic imaging of breast (principal); M81.0 Age-related osteoporosis without current pathological fracture; R79.89 Other specified abnormal findings of blood chemistry; R92.323 Mammographic fibroglandular density, bilateral breasts; Z80.3 Family history of malignant neoplasm of breast; Z78.0 Asymptomatic menopausal state; Z85.3 Personal history of malignant neoplasm of breast; Z90.11 Acquired absence of right breast and nipple; Z98.82 Breast implant status
CPT/HCPCS: 77062; 77066; 77080; 80061; 83721; 84439; 84443

== ENCOUNTER → 2024-08-11 | Outpatient (CLI) | payer MEDICARE, OTHER ==
--- NOTE | 2024-08-11 10:21 | FL ---
EXAMINATION TYPE: FL UGI air w esophagus DATE OF EXAM: 08/11/2024 9:27 AM COMPARISON: None. CLINICAL INDICATION: Female, 69 years old with history of K44.9 HIATAL HERNIA R13.10 DYSPHAGIA, gastr oesophageal reflux. Total Fluoroscopy Time: 1 minute 46 seconds Total dose: 75 mGycm2. 67 images obtained. FINDINGS: The swallowing mechanism is normal and hypopharyngeal anatomy is preserved. There may be very mild fixed narrowing at the distal esophagus just above the GE junction. No mucosal irregularity or abnormal filling defect is identified. [id number] tertiary peristaltic waves a re encountered. When the patient is prone/supine, a moderate-sized paraesophageal hernia becomes apparent. There are recurrent episodes of moderate to severe gastroesophageal reflux. The stomach and duodenum are free of any persistent filling defect and demonstrate a normal mucosal p attern. IMPRESSION: 1. Moderate sized, sliding, paraesophageal hiatal hernia with moderate to severe gastroesophageal ref lux. 2. Possible mild smooth stricture distal esophagus just above the GE junction. No mucosal lesion or a bnormal filling defect is seen. [facility], , 08/11/2024 10:18 AM
== END | disposition home or self-care (01) ==
LOC: RADFLMAIN 08:15
PROVIDERS: ATTEND Surgery
DX: K21.9 Gastro-esophageal reflux disease without esophagitis (principal); K44.9 Diaphragmatic hernia without obstruction or gangrene; R13.10 Dysphagia, unspecified
CPT/HCPCS: 74246

== ENCOUNTER → 2024-08-13 | Outpatient (CLI) | payer MEDICARE, OTHER | END | disposition home or self-care (01) | LOC: LABWHC1 12:36 | PROVIDERS: ATTEND Family Medicine | DX: K52.9 Noninfective gastroenteritis and colitis, unspecified (principal) | CPT/HCPCS: 87324 ==

== ENCOUNTER → 2024-09-10 | Outpatient (CLI) | payer MEDICARE, OTHER ==
[2024-09-10 15:32] LABS: ALT 39 U/L (8-44); Albumin 3.9 g/dL (3.8-4.9); Albumin/Globulin Ratio 1.56 Ratio (1.60-3.17); Alkaline Phosphatase 140 U/L (41-126); BUN/Creat Ratio 29.83 Ratio (12.00-20.00); Blood Urea Nitrogen 17.9 mg/dL (9.0-27.0); Calcium 9.1 mg/dL (8.7-10.3); Carbon Dioxide 19.7 mmol/L (21.6-31.8); Chloride 109 mmol/L (96-109); Globulin 2.5 g/dL (1.6-3.3); Glucose 97 mg/dL (70-110); Potassium 5.6 mmol/L (3.5-5.5); Sodium 140 mmol/L (135-145); Total Bilirubin <0.2 mg/dL (0.3-1.2); Total Protein 6.4 g/dL (6.2-8.2)
[2024-09-10 15:51] LABS: Basophils # (A) 0.06 X 10*3/uL (0.00-0.10); Basophils % (A) 0.8 %; Eosinophils # (A) 0.29 X 10*3/uL (0.04-0.35); Eosinophils % (A) 4.1 %; HCT 40.4 % (37.2-46.3); HGB 12.7 g/dL (12.0-15.0); Lymphocytes % (A) 20.9 %; MCH 28.5 pg (27.0-32.0); MCHC 31.4 g/dL (32.0-37.0); MCV 90.6 FL (80.0-97.0); Mean Platelet Volume 11.2 FL (9.5-12.2); Monocytes # (A) 0.68 X 10*3/uL (0.20-1.00); Monocytes % (A) 9.5 %; NRBC Per 100 WBC 0 X 10*3/uL (0.00-0.01); Neutrophils # (A) 4.58 X 10*3/uL (1.80-7.70); Platelet Count 237 X 10*3/uL (140-440); RBC 4.46 X 10*6/uL (4.10-5.20); RBC Morphology Normal (Normal); RDW 14.6 % (11.5-14.5); WBC 7.16 X 10*3/uL (4.50-10.00)
== END | disposition home or self-care (01) ==
LOC: LABPAT 09:24
PROVIDERS: ATTEND Surgery
DX: Z01.818 Encounter for other preprocedural examination (principal)
CPT/HCPCS: 80053; 85025; 86850; 86900; 86901; 93005

== ENCOUNTER → 2024-09-11 | Outpatient (CLI) | payer MEDICARE, OTHER ==
[2024-09-11 12:24] LABS: ALT 40 U/L (4-34); AST 34 U/L (14-36); African American GFR (CKD) >90 (>60 ml/min/1.73 sqM); Albumin 4.4 g/dL (3.5-5.0); Albumin/Globulin Ratio 1.6; Alkaline Phosphatase 132 U/L (38-126); Anion Gap 13 mmol/L; Blood Urea Nitrogen 15 mg/dL (7-17); Calcium 9.8 mg/dL (8.4-10.2); Carbon Dioxide 21 mmol/L (22-30); Chloride 104 mmol/L (98-107); Globulin 2.7 g/dL; Glucose 88 mg/dL (74-99); Non-African American GFR(CKD) >90 (>60 ml/min/1.73 sqM); Potassium 4.5 mmol/L (3.5-5.1); Sodium 138 mmol/L (137-145); Total Bilirubin 0.4 mg/dL (0.2-1.3); Total Protein 7.1 g/dL (6.3-8.2)
[2024-09-11 12:37] LABS: INR 0.9 (<1.2); Partial Thromboplastin Time 21.6 sec (22.0-30.0); Prothrombin Time 9.9 sec (10.0-12.5)
== END | disposition home or self-care (01) ==
LOC: LABWHC1 11:12
PROVIDERS: ATTEND Surgery
DX: Z01.812 Encounter for preprocedural laboratory examination (principal)
CPT/HCPCS: 36415; 80053; 85610; 85730

== ENCOUNTER 2024-09-30 06:55 | Inpatient (IN) | payer MEDICARE, OTHER ==
[~2024-09-30 06:55] MED LIST changes: +fentaNYL (PF) 50 MCG/ML 2 ML AMP IVP PRN
[2024-09-30] MEDS: IV FLUID CONTINUATION 1,000 ML IV ONE ×2 (07:29→08:32)
[2024-09-30] MEDS: ACETAMINOPHEN TAB 500 MG TAB PO PRN (08:00)
[2024-09-30] MEDS: MIDAZOLAM 2 MG/2 ML VIAL IV PRN (08:02)
[2024-09-30] MEDS: LACTATED RINGERS 1,000 ML IV SCH (08:02)
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
[2024-09-30] MEDS: ONDANSETRON 4 MG/2 ML VIAL IVP ONE (08:27)
[2024-09-30] MEDS: DEXAMETHASONE SOD PHOSPHATE 4 MG/ML 1 ML VIAL IV ONE (08:27)
[2024-09-30] MEDS: HEPARIN SODIUM,PORCINE 5,000 UNIT/ML 1 ML VIAL SQ PRN (08:27)
[2024-09-30] MEDS ORDERED: PHENYLEPHRINE-0.9% NACL SYG 1,000 MCG/10 ML SYRINGE ONE (08:28)
[2024-09-30] MEDS ORDERED: SUGAMMADEX SODIUM 100 MG/ML SYR IV ONE (08:28)
[2024-09-30] MEDS ORDERED: SUCCINYLCHOLINE CHLORIDE 200 MG/10 ML VIAL IV ONE (08:28)
[2024-09-30] MEDS ORDERED: fentaNYL (PF) 50 MCG/ML 2 ML AMP ONE (08:28)
[2024-09-30] MEDS ORDERED: PROPOFOL 10 MG/ML 20 ML VIAL IV ONE (08:28)
[2024-09-30] MEDS ORDERED: GLYCOPYRROLATE 0.2 MG/ML 2 ML VIAL ONE (08:28)
[2024-09-30] MEDS ORDERED: LIDOCAINE 1% INJ 10MG/ML (20 ML MDV) ONE (08:28)
[2024-09-30] MEDS ORDERED: ROCURONIUM 10 MG/ML (5 ML VIAL) IV ONE (08:28)
[2024-09-30] MEDS ORDERED: NEOSTIGMINE 1 MG/ML 10 ML VIAL ONE (08:28)
[2024-09-30] MEDS ORDERED: MIDAZOLAM 2 MG/2 ML VIAL ONE (08:28)
[2024-09-30] MEDS: ceFAZolin 2 GM in DEXTROSE 5% IN WATER 50 ML IVPB PRN (08:32)
--- NOTE | 2024-09-30 08:32 | P.ANPRN ---
Procedure Note - Anesthesia - Invasive Line Right Time Out Performed: Yes ([id number]) Date of Procedure: 09/30/24 Time of Procedure: 08:02 Location of Patient: PreOp Preparation: Sterile Prep, Sterile Dressing Ultrasound Used: Yes Purpose - Visualization and Identification of Vasculature: Yes Image Stored and Saved: Yes Narrative: Invasive line placement per sterile protocol utilized. Patient had poor peripheral IV access. Using ultrasound a 20-gauge 12 cm artery catheter placed in right side basilic vein sterile conditions. Blood aspirated after catheter in place. Then IV line connected. Secured with suture. And Tegaderm applied
[2024-09-30] MEDS ORDERED: METOCLOPRAMIDE 5 MG/ML 2 ML VIAL IVP PRN (10:08)
[2024-09-30] MEDS ORDERED: NALOXONE 0.4 MG/ML 1 ML VIAL IV PRN (10:08)
[2024-09-30] MEDS: HYDROmorphone 0.5 MG/0.5 ML SYRINGE IVP PRN (10:46)
[2024-09-30] MEDS: KETOROLAC 15 MG/ML 1 ML VIAL IVP SCH (12:05)
[2024-09-30] MEDS ORDERED: SUMAtriptan succinate 50 MG TAB PO PRN (13:00)
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
[2024-09-30] MEDS: D5-0.45% NACL WITH KCL 20MEQ/L 1,000 ML IV SCH (15:34)
[2024-09-30] MEDS: HYDROmorphone 1 MG/ML 1 ML SYRINGE IVP PRN (15:34)
[2024-09-30] MEDS: ALPRAZolam 0.25 MG TAB PO PRN (21:13)
[2024-10-01] MEDS: CYCLOBENZAPRINE 10 MG TAB PO PRN (00:19)
[2024-10-01 04:22] LABS: ALT 80 U/L (4-34); African American GFR (CKD) >90 (>60 ml/min/1.73 sqM); Albumin/Globulin Ratio 1.3; Anion Gap 8 mmol/L; Blood Urea Nitrogen 15 mg/dL (7-17); Calcium 8.8 mg/dL (8.4-10.2); Carbon Dioxide 19 mmol/L (22-30); Chloride 108 mmol/L (98-107); Globulin 2.4 g/dL; Glucose 123 mg/dL (74-99); Non-African American GFR(CKD) >90 (>60 ml/min/1.73 sqM); Sodium 135 mmol/L (137-145); Total Bilirubin 0.6 mg/dL (0.2-1.3); Total Protein 5.4 g/dL (6.3-8.2)
[2024-10-01 04:28] LABS: AST 89 U/L (14-36); Alkaline Phosphatase 86 U/L (38-126); Magnesium 1.8 mg/dL (1.6-2.3); Potassium 4.9 mmol/L (3.5-5.1)
[2024-10-01 05:12] LABS: Basophils # (A) 0.01 10*3/uL (0.00-0.10); Basophils % (A) 0.1 %; Eosinophils # (A) 0.01 10*3/uL (0.04-0.35); Eosinophils % (A) 0.1 %; HCT 33.3 % (37.2-46.3); Lymphocytes % (A) 7.6 %; MCH 29.1 pg (27.0-32.0); MCV 88.1 fL (80.0-97.0); Mean Platelet Volume 11.9 fL (9.5-12.2); Monocytes # (A) 1.17 10*3/uL (0.20-1.00); Monocytes % (A) 8.1 %; Neutrophils # (A) 12.13 10*3/uL (1.80-7.70); Neutrophils % (A) 83.6 %; Platelet Count 115 10*3/uL (140-440); RBC 3.78 10*6/uL (4.10-5.20); RDW 13.8 % (11.5-14.5); WBC 14.49 10*3/uL (4.50-10.00)
[2024-10-01] MEDS ORDERED: LEVOFLOXACIN 500MG-D5W PMX 500 MG in DEXTROSE/WATER 1 100ML.BAG IVPB SCH (08:45)
[2024-10-01] MEDS ORDERED: lisinopriL 20 MG TAB PO SCH (09:00)
[2024-10-01 09:15] LABS: Appearance,Urine Clear (Clear); Bilirubin,Urine Negative (Negative); Blood,Urine Negative (Negative); Color,Urine Yellow; Glucose,Urine (UA) Negative (Negative); Ketones,Urine Negative (Negative); Leukocyte Esterase,Urine Small (Negative); Mucus,Urine Rare /hpf; Nitrite,Urine Positive (Negative); Protein,Urine Negative (Negative); RBC,Urine 2 /hpf (0-5); Specific Gravity,Urine 1.017 (1.001-1.035); Squamous Epithelial Cell,Urine <1 /hpf (0-4); Urobilinogen,Urine <2.0 mg/dL (<2.0); WBC,Urine 29 /hpf (0-5)
--- NOTE | 2024-10-01 09:57 | XR ---
EXAMINATION TYPE: XR chest 1V portable DATE OF EXAM: 10/01/2024 9:42 AM COMPARISON: 05/09/2023 CLINICAL INDICATION: Female, 69 years old with history of hypoxia, TECHNIQUE: XR chest 1V portable views of the chest are obtained. FINDINGS: Demonstrated are scattered senescent parenchymal change. There is increased patchy density at the left lung base which may represent reflect infiltrate and/or atelectasis. There is also right suprahilar increased density. Clinical correlation and short-term f ollow-up recommended. The heart is stable. Hilar and mediastinal structures are within normal limits. Degenerative changes are seen of the dorsal spine. IMPRESSION: 1. There is increased patchy density at the left lung base which may represent reflect infiltrate an d/or atelectasis. There is also right suprahilar increased density. Clinical correlation and short-te rm follow-up recommended. [facility], , 10/01/2024 9:54 AM
[2024-10-01] MEDS: CHOLECALCIFEROL 25 MCG (1000 IU) TABLET PO SCH (10:10)
[2024-10-01] MEDS: METOPROLOL SUCCINATE (ER) 100 MG TAB.ER.24H PO SCH (10:10)
[2024-10-01] MEDS: ZINC SULFATE 220 MG CAP PO SCH (10:10)
[2024-10-01] MEDS: ENOXAPARIN 40 MG/0.4 ML SYRINGE SQ SCH (10:11)
[2024-10-01] MEDS: ASPIRIN 81 MG PO SCH (10:11)
[2024-10-01] MEDS: ASCORBIC ACID 500 MG TAB PO SCH (10:11)
[2024-10-01] MEDS: LEVOFLOXACIN 750MG-D5W PMX 750 MG in DEXTROSE/WATER 1 150ML.BAG IVPB SCH (10:25)
--- NOTE | 2024-10-01 12:32 | P.PN ---
Subjective Progress Note Date: 10/01/24 SURGICAL PROGRESS NOTE CHIEF COMPLAINT: Paraesophageal hernia HISTORY OF PRESENT ILLNESS: Postop day #1 status post open repair paraesophageal hernia. Pain is controlled. Denies any nausea or vomiting. Afebrile. Chest x-ray increased patchy density at the left lung base may represent infiltrate and/or atelectasis. Right suprahilar increased density. Afebrile. WBC 14.49 Hgb 11 patient did report burning with urination. Urinalysis had reported leukocyte Estrace. Patient on Levaquin PHYSICAL EXAM: VITAL SIGNS: Reviewed. GENERAL: Well-developed in no acute distress. HEENT: No sclera icterus. Extraocular movements grossly intact. Moist buccal mucosa. Head is atraumatic, normocephalic. ABDOMEN: Soft. Nondistended. Tenderness at incision site. Incisional dressing clean dry and intact NEUROLOGIC: Alert and oriented. Cranial nerves II through XII grossly intact. ASSESSMENT: 1. Paraesophageal hernia status post open repair 2. Possible UTI PLAN: - Continue pain management - Keep patient n.p.o. - Continue IV fluids - Encourage patient to increase activity level - Continue antibiotics - DVT prophylaxis Lovenox and GI prophylaxis Pepcid Physician Humane Agent note has been reviewed by physician. Signing provider agrees with the documented findings, assessment, and plan of care. Objective - Vital Signs Vital signs: Vital Signs Temp 98.0 F 10/01/24 07:43 Pulse 92 10/01/24 07:43 Resp 17 10/01/24 07:43 BP 105/68 10/01/24 07:43 Pulse Ox 90 L 10/01/24 07:43 FiO2 Intake & Output 09/30/24 10/01/24 10/01/24 18:59 06:59 18:59 Intake Total 1750 Output Total 50 Balance 1700 Weight 63.3 kg Intake: IV 1750 Output: Estimated Blood Loss 50 Other: Voiding Method Toilet # Voids 1 1 1 - Labs CBC & Chem 7: 10/01/24 03:13 10/01/24 03:13 Labs: Abnormal Lab Results - Last 24 Hours (Table) 10/01/24 10/01/24 10/01/24 Range/Units 03:13 03:13 08:27 WBC 14.49 H (4.50-10.00) 10*3/uL RBC 3.78 L (4.10-5.20) 10*6/uL Hgb 11.0 L (12.0-15.0) g/dL Hct 33.3 L (37.2-46.3) % Plt Count 115 L (140-440) 10*3/uL Immature Gran # 0.07 H (0.00-0.04) 10*3/uL Neutrophils # 12.13 H (1.80-7.70) 10*3/uL Monocytes # 1.17 H (0.20-1.00) 10*3/uL Eosinophils # 0.01 L (0.04-0.35) 10*3/uL Sodium 135 L (137-145) mmol/L Chloride 108 H (98-107) mmol/L Carbon Dioxide 19 L (22-30) mmol/L Creatinine 0.51 L (0.52-1.04) mg/dL Glucose 123 H (74-99) mg/dL AST 89 H (14-36) U/L ALT 80 H (4-34) U/L Total Protein 5.4 L (6.3-8.2) g/dL Albumin 3.0 L (3.5-5.0) g/dL Urine Nitrite Positive H (Negative) Ur Leukocyte Esterase Small H (Negative) Urine WBC 29 H (0-5) /hpf Urine Mucus Rare H (None) /hpf
[2024-10-01] MEDS: FAMOTIDINE 20 MG/2 ML VIAL IV SCH (12:57)
--- NOTE | 2024-10-01 13:28 | P.PN ---
Subjective Progress Note Date: 10/01/24 This is a pleasant 69-year-old female with medical history significant for migraine, seizure disorder, heart failure, COPD, stroke, GERD, hypertension, sick sinus syndrome. Patient admitted for scheduled paraesophageal hernia repair she is evaluated in the medical floor reporting 8 out of 10 abdominal dis comfort after receiving IV pain medications. She is currently NPO. Patient states that she is maintained on Briviact was out of her medication on outpatient basis and did have a seizure 2 days ago. She has since been resumed on this medication however she states that the hospital does not carry it and she did bring her own medication in which is resumed. She is not complaining any shortness of breath or chest discomfort. She is not having any nausea or vomiting at this time. Patient has been afebrile, heart rate of 82 normal sinus rhythm, blood pressure 109/65 she is 98% on 2 L of oxygen via nasal cannula. 10/01/2024 Patient evaluated in follow-up on the medical floor. She remains NPO. Patient has been complaining of dysuria urgency burning and frequency she was started on IV levofloxacin by primary service. Her urinalysis was completed which was nitrate positive with small leukocyte Estrace 29 WBC. She has been afebrile. She is 90% on room air because of this a chest x-ray was completed which reveals increased patchy density at the left lung base which may resent infiltrate versus atelectasis. There is also a right suprahilar increased density. REVIEW OF SYSTEMS: CONSTITUTIONAL: No fever, no malaise, no fatigue. HEENT: No recent visual problems or hearing problems. Denied any sore throat. CARDIOVASCULAR: No chest pain, orthopnea, PND, no palpitations, no syncope. PULMONARY: No shortness of breath, no cough, no hemoptysis. GASTROINTESTINAL: No diarrhea, no nausea, no vomiting, no abdominal pain. NEUROLOGICAL: No headaches, no weakness, no numbness. HEMATOLOGICAL: Denies any bleeding or petechiae. GENITOURINARY: has been complaining of burning, urgency frequency PHYSICAL EXAMINATION: GENERAL: The patient is alert and oriented x3, not in any acute distress. Well developed, well nourished. HEENT: Pupils are round and equally reacting to light. EOMI. No scleral icterus. No conjunctival pallor. Normocephalic, atraumatic. No pharyngeal erythema. No thyromegaly. CARDIOVASCULAR: S1 and S2 present. No murmurs, rubs, or gallops. PULMONARY: Chest is clear to auscultation, no wheezing or crackles. ABDOMEN: Soft, nontender, nondistended, normoactive bowel sounds. No palpable organomegaly. MUSCULOSKELETAL: No joint swelling or deformity. EXTREMITIES: No cyanosis, clubbing, or pedal edema. NEUROLOGICAL: Gross neurological examination did not reveal any focal deficits. SKIN: No rashes. Assessment Status post paraesophageal hernia repair and being followed by general surgery Left lower lobe infiltrate concerning for developing pneumonia Dysuria and possible acute urinary tract infection Leukocytosis History of seizure disorder with a recent seizure 2 days ago secondary to missing her medication she has been resumed on her Briviact Hypertension currently normotensive recommend to hold off on lisinopril to avoid any postoperative hypotension History of heart failure with no acute exacerbation History of COPD stable History of stroke History of bowel resection and short gut syndrome Sick sinus syndrome Anxiety/depression GI prophylaxis as per primary DVT prophylaxis: Lovenox full code Home medications have been reviewed and resumed as appropriate Hold lisinopril as mentioned Okay to resume her home Briviact Patient was started on IV levofloxacin Encourage incentive spirometer 10 times an hour while awake Pending urine culture Check a procalcitonin level Monitor electrolytes and renal function Thank you kindly for this consultation we will continue to follow along The impression and plan of care has been dictated by Irlanda Al, Nurse Practitioner as directed. Dr. Ramila MD I have performed a history and physical examination and medical decision making of this patient, discussed the same with the dictator, and agree with the dictators assessment and plan as written, documented as a scribe. Based on total visit time, I have performed more than 50% of this visit. Objective - Vital Signs Vital signs: Vital Signs Temp 98.0 F 10/01/24 07:43 Pulse 92 10/01/24 07:43 Resp 17 10/01/24 07:43 BP 105/68 10/01/24 07:43 Pulse Ox 90 L 10/01/24 07:43 FiO2 Intake & Output 09/30/24 10/01/24 10/01/24 18:59 06:59 18:59 Intake Total 1750 Output Total 50 Balance 1700 Weight 63.3 kg Intake: IV 1750 Output: Estimated Blood Loss 50 Other: Voiding Method Toilet # Voids 1 1 1 - Labs CBC & Chem 7: 10/01/24 03:13 10/01/24 03:13 Labs: Abnormal Lab Results - Last 24 Hours (Table) 10/01/24 10/01/24 10/01/24 Range/Units 03:13 03:13 08:27 WBC 14.49 H (4.50-10.00) 10*3/uL RBC 3.78 L (4.10-5.20) 10*6/uL Hgb 11.0 L (12.0-15.0) g/dL Hct 33.3 L (37.2-46.3) % Plt Count 115 L (140-440) 10*3/uL Immature Gran # 0.07 H (0.00-0.04) 10*3/uL Neutrophils # 12.13 H (1.80-7.70) 10*3/uL Monocytes # 1.17 H (0.20-1.00) 10*3/uL Eosinophils # 0.01 L (0.04-0.35) 10*3/uL Sodium 135 L (137-145) mmol/L Chloride 108 H (98-107) mmol/L Carbon Dioxide 19 L (22-30) mmol/L Creatinine 0.51 L (0.52-1.04) mg/dL Glucose 123 H (74-99) mg/dL AST 89 H (14-36) U/L ALT 80 H (4-34) U/L Total Protein 5.4 L (6.3-8.2) g/dL Albumin 3.0 L (3.5-5.0) g/dL Urine Nitrite Positive H (Negative) Ur Leukocyte Esterase Small H (Negative) Urine WBC 29 H (0-5) /hpf Urine Mucus Rare H (None) /hpf Assessment and Plan Time with Patient: Less than 30
--- NOTE | 2024-10-01 19:49 | US ---
EXAMINATION TYPE: US venous doppler duplex UE RT DATE OF EXAM: 10/01/2024 COMPARISON: NONE CLINICAL INDICATION: Female, 69 years old with history of rule out DVT; patient states hx dvt in left leg. swelling after IV. Not on thinners. no longer swollen per patient TECHNIQUE: Grayscale, color Doppler and spectral Doppler imaging of the upper extremity. SIDE PERFORMED: right VESSELS IMAGED: IJV Subclavian Vein Axilla Vein Brachial Vein(s) Radial Paired Veins Ulnar Paired Veins Cephalic Vein* Basilic Vein* (*superficial vessels) FINDINGS: limited due to body habitus and edema Right Arm: appears negative for dvt as best seen. unable to visualize the basilic and cephalic veins due to edema Grayscale, color doppler, spectral doppler imaging performed of the deep veins of the upper extremiti es. IMPRESSION: 1. No suspicious changes to suggest right upper extremity deep venous thrombosis. There are portions which are limited. 2. Superficial thrombus cannot be well evaluated due to lack of visualization secondary to superficia l edema [facility], , 10/01/2024 7:47 PM
[2024-10-01] MEDS: HYDROmorphone 1 MG/ML 1 ML SYRINGE IM PRN (21:24)
[2024-10-02 06:26] LABS: Basophils # (A) 0.02 10*3/uL (0.00-0.10); Basophils % (A) 0.2 %; Eosinophils # (A) 0.11 10*3/uL (0.04-0.35); Eosinophils % (A) 1.2 %; HCT 36.7 % (37.2-46.3); HGB 11.3 g/dL (12.0-15.0); Lymphocytes # (A) 0.95 10*3/uL (0.90-5.00); Lymphocytes % (A) 9.9 %; MCHC 30.8 g/dL (32.0-37.0); Mean Platelet Volume 10.7 fL (9.5-12.2); Monocytes # (A) 1.03 10*3/uL (0.20-1.00); Monocytes % (A) 10.8 %; Neutrophils # (A) 7.39 10*3/uL (1.80-7.70); Neutrophils % (A) 77.4 %; Platelet Count 157 10*3/uL (140-440); RBC 3.89 10*6/uL (4.10-5.20); RDW 14.2 % (11.5-14.5); WBC 9.55 10*3/uL (4.50-10.00)
[2024-10-02 06:27] LABS: MCV 94.3 fL (80.0-97.0)
[2024-10-02 06:31] LABS: African American GFR (CKD) >90 (>60 ml/min/1.73 sqM); Anion Gap 13 mmol/L; Blood Urea Nitrogen 7 mg/dL (7-17); Calcium 8.6 mg/dL (8.4-10.2); Carbon Dioxide 15 mmol/L (22-30); Chloride 108 mmol/L (98-107); Glucose 110 mg/dL (74-99); Non-African American GFR(CKD) >90 (>60 ml/min/1.73 sqM); Potassium 4.4 mmol/L (3.5-5.1); Sodium 136 mmol/L (137-145)
--- NOTE | 2024-10-02 08:35 | P.OP ---
Date of Procedure: 09/30/24 Preoperative Diagnosis: Paraesophageal hiatal hernia Postoperative Diagnosis: Paraesophageal hiatal hernia Severe intraabdominal adhesions Procedure(s) Performed: Exploratory laparotomy L lysis of adhesions Repair of paraesophageal hiatal hernia Anesthesia: HADLEY Surgeon: Giovani Artis Estimated Blood Loss (ml): 30 Pathology: none sent Condition: stable Disposition: PACU Description of Procedure: On the operative table in the dorsal thigh position after receiving general a nesthesia. Her abdomen was prepped Carie sterile fashion. Patient had a midline scar. The skin was incised midline scar. The fascia was divided electrocautery. There was extensive adhesions noted. Approximately 40 minutes of operative time use Elase adhesions. There was a seromuscular repair of the small bowel adhesion which was adherent to the abdominal wall. This was repaired using 3-0 GI silk suture. D The left lateral lobe liver retractor. And then the paraesophageal hernia was reduced. The crura was dissected. The crura was repaired in an anterior fashion using 2-0 Ethibond suture. No injury to the stomach esophagus or liver was seen. The abdomen is irrigated. There is no bleeding seen. There is no injury to the small bowel seen. The fascia was then closed with looped #1 PDS suture. Skin was closed Abels. Patient was sent to recovery room in stable condition.
--- NOTE | 2024-10-02 11:52 | P.PN ---
Subjective Progress Note Date: 10/02/24 SURGICAL PROGRESS NOTE CHIEF COMPLAINT: Paraesophageal hernia HISTORY OF PRESENT ILLNESS: Postop day #2 status post open repair paraesophageal hernia. Abdominal pain controlled. She does complain of swelling in the left arm. They are switching IV from the left arm to the right. Patient denies any flatus. Denies any difficulty urinating. Denies any nausea or vomiting. Afebrile. Mildly tachycardic. WBC is down from 14.4-9.5 Hgb 11.3 venous Doppler reports no suspicious changes to suggest right upper extremity DVT. Superficial thrombus cannot be well-evaluated due to lack of vascularization secondary to superficial edema. Apparently patient had issues with the right arm yesterday. This has improved. Discussed left arm swelling with nursing staff. Since they have removed the IV this morning from the left arm the left arm swelling is already improving. IV was likely infiltrated. PHYSICAL EXAM: VITAL SIGNS: Reviewed. GENERAL: Well-developed in no acute distress. HEENT: No sclera icterus. Extraocular movements grossly intact. Moist buccal mucosa. Head is atraumatic, normocephalic. ABDOMEN: Soft. Nondistended. Tenderness at incision site. Incisional dressing clean dry and intact NEUROLOGIC: Alert and oriented. Cranial nerves II through XII grossly intact. Extremities: Left arm swollen ASSESSMENT: 1. Paraesophageal hernia status post open repair 2. Possible UTI PLAN: - Continue pain management - Keep patient n.p.o. except ice chips - Continue IV fluids - Encourage patient to increase activity level - Continue antibiotics - Change IV to the right arm - DVT prophylaxis Lovenox and GI prophylaxis Pepcid Physician Logistics Operations Director note has been reviewed by physician. Signing provider agrees with the documented findings, assessment, and plan of care. Objective - Vital Signs Vital signs: Vital Signs Temp 98.4 F 10/02/24 07:05 Pulse 115 H 10/02/24 07:05 Resp 18 10/02/24 07:05 BP 107/63 10/02/24 07:05 Pulse Ox 92 L 10/02/24 07:05 FiO2 Intake & Output 10/01/24 10/02/24 10/02/24 18:59 06:59 18:59 Other: Voiding Method Toilet Toilet Toilet # Voids 1 1 1 - Labs CBC & Chem 7: 10/02/24 05:37 10/02/24 05:37 Labs: Abnormal Lab Results - Last 24 Hours (Table) 10/02/24 10/02/24 Range/Units 05:37 05:37 RBC 3.89 L (4.10-5.20) 10*6/uL Hgb 11.3 L (12.0-15.0) g/dL Hct 36.7 L (37.2-46.3) % MCHC 30.8 L (32.0-37.0) g/dL Immature Gran # 0.05 H (0.00-0.04) 10*3/uL Monocytes # 1.03 H (0.20-1.00) 10*3/uL Sodium 136 L (137-145) mmol/L Chloride 108 H (98-107) mmol/L Carbon Dioxide 15 L (22-30) mmol/L Creatinine 0.51 L (0.52-1.04) mg/dL Glucose 110 H (74-99) mg/dL
--- NOTE | 2024-10-02 21:20 | P.PN ---
Subjective Progress Note Date: 10/02/24 This is a pleasant 69-year-old female with medical history significant for migraine, seizure disorder, heart failure, COPD, stroke, GERD, hypertension, sick sinus syndrome. Patient admitted for scheduled paraesophageal hernia repair she is evaluated in the medical floor reporting 8 out of 10 abdominal dis comfort after receiving IV pain medications. She is currently NPO. Patient states that she is maintained on Briviact was out of her medication on outpatient basis and did have a seizure 2 days ago. She has since been resumed on this medication however she states that the hospital does not carry it and she did bring her own medication in which is resumed. She is not complaining any shortness of breath or chest discomfort. She is not having any nausea or vomiting at this time. Patient has been afebrile, heart rate of 82 normal sinus rhythm, blood pressure 109/65 she is 98% on 2 L of oxygen via nasal cannula. 10/01/2024 Patient evaluated in follow-up on the medical floor. She remains NPO. Patient has been complaining of dysuria urgency burning and frequency she was started on IV levofloxacin by primary service. Her urinalysis was completed which was nitrate positive with small leukocyte Estrace 29 WBC. She has been afebrile. She is 90% on room air because of this a chest x-ray was completed which reveals increased patchy density at the left lung base which may resent infiltrate versus atelectasis. There is also a right suprahilar increased density. 10/02/2024 Patient evaluated today in follow up on the medical floor. Continues to report abdominal pain 7/10. Remains NPO. Bowel sounds more active today. IV infiltrated in the left arm. Urine culture is final and negative. She continues to report dysuria. Remains on IV levofloxacin. 90% on room air. Procal less than 0.20. White blood cell count 9.55. REVIEW OF SYSTEMS: CONSTITUTIONAL: No fever, no malaise, no fatigue. HEENT: No recent visual problems or hearing problems. Denied any sore throat. CARDIOVASCULAR: No chest pain, orthopnea, PND, no palpitations, no syncope. PULMONARY: No shortness of breath, no cough, no hemoptysis. GASTROINTESTINAL: No diarrhea, no nausea, no vomiting, no abdominal pain. NEUROLOGICAL: No headaches, no weakness, no numbness. HEMATOLOGICAL: Denies any bleeding or petechiae. GENITOURINARY: has been complaining of burning, urgency frequency PHYSICAL EXAMINATION: GENERAL: The patient is alert and oriented x3, not in any acute distress. Well developed, well nourished. HEENT: Pupils are round and equally reacting to light. EOMI. No scleral icterus. No conjunctival pallor. Normocephalic, atraumatic. No pharyngeal erythema. No thyromegaly. CARDIOVASCULAR: S1 and S2 present. No murmurs, rubs, or gallops. PULMONARY: Chest is clear to auscultation, no wheezing or crackles. ABDOMEN: Soft, nontender, nondistended, normoactive bowel sounds. No palpable organomegaly. MUSCULOSKELETAL: No joint swelling or deformity. EXTREMITIES: No cyanosis, clubbing, or pedal edema. NEUROLOGICAL: Gross neurological examination did not reveal any focal deficits. SKIN: No rashes. Assessment Status post paraesophageal hernia repair and being followed by general surgery Left lower lobe infiltrate concerning for developing pneumonia Dysuria and possible acute urinary tract infection Leukocytosis History of seizure disorder with a recent seizure 2 days ago secondary to mi ssing her medication she has been resumed on her Briviact Hypertension currently normotensive recommend to hold off on lisinopril to avoid any postoperative hypotension History of heart failure with no acute exacerbation History of COPD stable History of stroke History of bowel resection and short gut syndrome Sick sinus syndrome Anxiety/depression GI prophylaxis as per primary DVT prophylaxis: Lovenox full code Home medications have been reviewed and resumed as appropriate Hold lisinopril as mentioned Okay to resume her home Briviact Patient was started on IV levofloxacin Encourage incentive spirometer 10 times an hour while awake Monitor electrolytes and renal function Thank you kindly for this consultation we will continue to follow along The impression and plan of care has been dictated by Irlanda Al Nurse Practitioner as directed. Dr. Ramila MD I have performed a history and physical examination and medical decision making of this patient, discussed the same with the dictator, and agree with the dictators assessment and plan as written, documented as a scribe. Based on total visit time, I have performed more than 50% of this visit. Objective - Vital Signs Vital signs: Vital Signs Temp 98.4 F 10/02/24 07:05 Pulse 115 H 10/02/24 07:05 Resp 18 10/02/24 07:05 BP 107/63 10/02/24 07:05 Pulse Ox 92 L 10/02/24 07:05 FiO2 Intake & Output 10/01/24 10/02/24 10/02/24 18:59 06:59 18:59 Other: Voiding Method Toilet Toilet Toilet # Voids 1 1 1 - Labs CBC & Chem 7: 10/02/24 05:37 10/02/24 05:37 Labs: Abnormal Lab Results - Last 24 Hours (Table) 10/02/24 10/02/24 Range/Units 05:37 05:37 RBC 3.89 L (4.10-5.20) 10*6/uL Hgb 11.3 L (12.0-15.0) g/dL Hct 36.7 L (37.2-46.3) % MCHC 30.8 L (32.0-37.0) g/dL Immature Gran # 0.05 H (0.00-0.04) 10*3/uL Monocytes # 1.03 H (0.20-1.00) 10*3/uL Sodium 136 L (137-145) mmol/L Chloride 108 H (98-107) mmol/L Carbon Dioxide 15 L (22-30) mmol/L Creatinine 0.51 L (0.52-1.04) mg/dL Glucose 110 H (74-99) mg/dL Assessment and Plan Time with Patient: Less than 30
[2024-10-03] MEDS: ACETAMINOPHEN TAB 325 MG TAB PO PRN (02:29)
--- NOTE | 2024-10-03 09:18 | P.PN ---
Subjective Progress Note Date: 10/03/24 The patient feels better. She has improvement in her pain. She has had flatus. On exam vital signs appear stable. Abdomen soft. Status post open repair of paraesophageal hiatal hernia. Patient will start clear liquid diet. Objective - Vital Signs Vital signs: Vital Signs Temp 98.3 F 10/03/24 06:55 Pulse 94 10/03/24 06:55 Resp 15 10/03/24 06:55 BP 126/75 10/03/24 06:55 Pulse Ox 91 L 10/03/24 06:55 FiO2 Intake & Output 10/02/24 10/03/24 10/03/24 18:59 06:59 18:59 Other: Voiding Method Toilet Toilet # Voids 2 3 - Labs CBC & Chem 7: 10/02/24 05:37 10/02/24 05:37 Labs: Microbiology - Last 24 Hours (Table) 10/01/24 08:27 Urine Culture - Final Urine,Voided
[2024-10-03 12:06] VITALS: BMI 28.1
--- NOTE | 2024-10-03 20:30 | P.PN ---
Subjective Progress Note Date: 10/03/24 This is a pleasant 69-year-old female with medical history significant for migraine, seizure disorder, heart failure, COPD, stroke, GERD, hypertension, sick sinus syndrome. Patient admitted for scheduled paraesophageal hernia repair she is evaluated in the medical floor reporting 8 out of 10 abdominal dis comfort after receiving IV pain medications. She is currently NPO. Patient states that she is maintained on Briviact was out of her medication on outpatient basis and did have a seizure 2 days ago. She has since been resumed on this medication however she states that the hospital does not carry it and she did bring her own medication in which is resumed. She is not complaining any shortness of breath or chest discomfort. She is not having any nausea or vomiting at this time. Patient has been afebrile, heart rate of 82 normal sinus rhythm, blood pressure 109/65 she is 98% on 2 L of oxygen via nasal cannula. 10/01/2024 Patient evaluated in follow-up on the medical floor. She remains NPO. Patient has been complaining of dysuria urgency burning and frequency she was started on IV levofloxacin by primary service. Her urinalysis was completed which was nitrate positive with small leukocyte Estrace 29 WBC. She has been afebrile. She is 90% on room air because of this a chest x-ray was completed which reveals increased patchy density at the left lung base which may resent infiltrate versus atelectasis. There is also a right suprahilar increased density. 10/02/2024 Patient evaluated today in follow up on the medical floor. Continues to report abdominal pain 7/10. Remains NPO. Bowel sounds more active today. IV infiltrated in the left arm. Urine culture is final and negative. She continues to report dysuria. Remains on IV levofloxacin. 90% on room air. Procal less than 0.20. White blood cell count 9.55. 10/03/2024 Patient evaluated in follow up on the medical floor. Resting comfortably. Diet advanced to clear liquid. REVIEW OF SYSTEMS: CONSTITUTIONAL: No fever, no malaise, no fatigue. HEENT: No recent visual problems or hearing problems. Denied any sore throat. CARDIOVASCULAR: No chest pain, orthopnea, PND, no palpitations, no syncope. PULMONARY: No shortness of breath, no cough, no hemoptysis. GASTROINTESTINAL: No diarrhea, no nausea, no vomiting, no abdominal pain. NEUROLOGICAL: No headaches, no weakness, no numbness. HEMATOLOGICAL: Denies any bleeding or petechiae. GENITOURINARY: has been complaining of burning, urgency frequency PHYSICAL EXAMINATION: GENERAL: The patient is alert and oriented x3, not in any acute distress. Well developed, well nourished. HEENT: Pupils are round and equally reacting to light. EOMI. No scleral icterus. No conjunctival pallor. Normocephalic, atraumatic. No pharyngeal erythema. No thyromegaly. CARDIOVASCULAR: S1 and S2 present. No murmurs, rubs, or gallops. PULMONARY: Chest is clear to auscultation, no wheezing or crackles. ABDOMEN: Soft, nontender, nondistended, normoactive bowel sounds. No palpable organomegaly. MUSCULOSKELETAL: No joint swelling or deformity. EXTREMITIES: No cyanosis, clubbing, or pedal edema. NEUROLOGICAL: Gross neurological examination did not reveal any focal deficits. SKIN: No rashes. Assessment Status post paraesophageal hernia repair and being followed by general surgery Left lower lobe infiltrate concerning for developing pneumonia Dysuria and possible acute urinary tract infection Leukocytosis History of seizure disorder with a recent seizure 2 days ago secondary to missing her medication she has been resumed on her Briviact Hypertension currently normotensive recommend to hold off on lisinopril to avoid any postoperative hypotension History of heart failure with no acute exacerbation History of COPD stable History of stroke History of bowel resection and short gut syndrome Sick sinus syndrome Anxiety/depression GI prophylaxis as per primary DVT prophylaxis: Lovenox full code Home medications have been reviewed and resumed as appropriate Hold lisinopril as mentioned Okay to resume her home Briviact Patient was started on IV levofloxacin, urine culture negative On clear liquid diet Encourage incentive spirometer 10 times an hour while awake Monitor electrolytes and renal function Thank you kindly for this consultation we will continue to follow along The impression and plan of care has been dictated by Irlanda Al, Nurse Practitioner as directed. Dr. Ramila MD I have performed a history and physical examination and medical decision making of this patient, discussed the same with the dictator, and agree with the dictators assessment and plan as written, documented as a scribe. Based on total visit time, I have performed more than 50% of this visit. Objective - Vital Signs Vital signs: Vital Signs Temp 98.3 F 10/03/24 06:55 Pulse 94 10/03/24 06:55 Resp 15 10/03/24 06:55 BP 126/75 10/03/24 06:55 Pulse Ox 91 L 10/03/24 06:55 FiO2 Intake & Output 10/02/24 10/03/24 10/03/24 18:59 06:59 18:59 Weight 63.3 kg Other: Voiding Method Toilet Toilet Toilet # Voids 2 3 - Labs CBC & Chem 7: 10/02/24 05:37 10/02/24 05:37 Labs: Microbiology - Last 24 Hours (Table) 10/01/24 08:27 Urine Culture - Final Urine,Voided Assessment and Plan Time with Patient: Less than 30
[2024-10-04 08:24] LABS: African American GFR (CKD) >90 (>60 ml/min/1.73 sqM); Anion Gap 4 mmol/L; Blood Urea Nitrogen 2 mg/dL (7-17); Calcium 8.7 mg/dL (8.4-10.2); Carbon Dioxide 21 mmol/L (22-30); Chloride 111 mmol/L (98-107); Glucose 109 mg/dL (74-99); Magnesium 1.6 mg/dL (1.6-2.3); Non-African American GFR(CKD) >90 (>60 ml/min/1.73 sqM); Sodium 136 mmol/L (137-145)
[2024-10-04 08:39] LABS: Basophils # (A) 0.03 10*3/uL (0.00-0.10); Basophils % (A) 0.4 %; Eosinophils # (A) 0.21 10*3/uL (0.04-0.35); Eosinophils % (A) 2.7 %; HCT 32.9 % (37.2-46.3); HGB 10.7 g/dL (12.0-15.0); Lymphocytes % (A) 15.6 %; MCH 29.2 pg (27.0-32.0); MCHC 32.5 g/dL (32.0-37.0); MCV 89.9 fL (80.0-97.0); Mean Platelet Volume 9.8 fL (9.5-12.2); Monocytes # (A) 0.98 10*3/uL (0.20-1.00); Monocytes % (A) 12.7 %; Neutrophils # (A) 5.23 10*3/uL (1.80-7.70); Neutrophils % (A) 68.1 %; Platelet Count 185 10*3/uL (140-440); RBC 3.66 10*6/uL (4.10-5.20); WBC 7.69 10*3/uL (4.50-10.00)
--- NOTE | 2024-10-04 11:12 | P.PN ---
Subjective Progress Note Date: 10/04/24 Patient has had some issues with pain medication. Apparently she lost her IV and had to be replaced. She is tolerating clear liquids. On exam vital signs appear stable. Abdomen soft. Status post open repair of paraesophageal hiatal hernia. Patient will continue to have supportive care. Objective - Vital Signs Vital signs: Vital Signs Temp 98.8 F 10/04/24 07:08 Pulse 98 10/04/24 07:08 Resp 15 10/04/24 07:08 BP 117/79 10/04/24 07:08 Pulse Ox 95 10/04/24 07:08 FiO2 Intake & Output 10/03/24 10/04/24 10/04/24 18:59 06:59 18:59 Weight 63.3 kg Other: Voiding Method Toilet Toilet # Voids 4 3 - Labs CBC & Chem 7: 10/04/24 08:14 10/04/24 07:21 Labs: Abnormal Lab Results - Last 24 Hours (Table) 10/04/24 10/04/24 Range/Units 07:21 08:14 RBC 3.66 L (4.10-5.20) 10*6/uL Hgb 10.7 L (12.0-15.0) g/dL Hct 32.9 L (37.2-46.3) % Sodium 136 L (137-145) mmol/L Chloride 111 H (98-107) mmol/L Carbon Dioxide 21 L (22-30) mmol/L BUN 2 L (7-17) mg/dL Creatinine 0.45 L (0.52-1.04) mg/dL Glucose 109 H (74-99) mg/dL
--- NOTE | 2024-10-04 16:29 | P.PN ---
Subjective Progress Note Date: 10/04/24 This is a pleasant 69-year-old female with medical history significant for migraine, seizure disorder, heart failure, COPD, stroke, GERD, hypertension, sick sinus syndrome. Patient admitted for scheduled paraesophageal hernia repair she is evaluated in the medical floor reporting 8 out of 10 abdominal dis comfort after receiving IV pain medications. She is currently NPO. Patient states that she is maintained on Briviact was out of her medication on outpatient basis and did have a seizure 2 days ago. She has since been resumed on this medication however she states that the hospital does not carry it and she did bring her own medication in which is resumed. She is not complaining any shortness of breath or chest discomfort. She is not having any nausea or vomiting at this time. Patient has been afebrile, heart rate of 82 normal sinus rhythm, blood pressure 109/65 she is 98% on 2 L of oxygen via nasal cannula. 10/01/2024 Patient evaluated in follow-up on the medical floor. She remains NPO. Patient has been complaining of dysuria urgency burning and frequency she was started on IV levofloxacin by primary service. Her urinalysis was completed which was nitrate positive with small leukocyte Estrace 29 WBC. She has been afebrile. She is 90% on room air because of this a chest x-ray was completed which reveals increased patchy density at the left lung base which may resent infiltrate versus atelectasis. There is also a right suprahilar increased density. 10/02/2024 Patient evaluated today in follow up on the medical floor. Continues to report abdominal pain 7/10. Remains NPO. Bowel sounds more active today. IV infiltrated in the left arm. Urine culture is final and negative. She continues to report dysuria. Remains on IV levofloxacin. 90% on room air. Procal less than 0.20. White blood cell count 9.55. 10/03/2024 Patient evaluated in follow up on the medical floor. Resting comfortably. Diet advanced to clear liquid. 10/04/2024 Patient is evaluated today in follow up on the medical floor. Has not had a BM since surgery. Currently on clear liquid diet. Bowels are more active. Right AC excoriated. REVIEW OF SYSTEMS: CONSTITUTIONAL: No fever, no malaise, no fatigue. HEENT: No recent visual problems or hearing problems. Denied any sore throat. CARDIOVASCULAR: No chest pain, orthopnea, PND, no palpitations, no syncope. PULMONARY: No shortness of breath, no cough, no hemoptysis. GASTROINTESTINAL: No diarrhea, no nausea, no vomiting, no abdominal pain. NEUROLOGICAL: No headaches, no weakness, no numbness. HEMATOLOGICAL: Denies any bleeding or petechiae. GENITOURINARY: has been complaining of burning, urgency frequency PHYSICAL EXAMINATION: GENERAL: The patient is alert and oriented x3, not in any acute distress. Well developed, well nourished. HEENT: Pupils are round and equally reacting to light. EOMI. No scleral icterus. No conjunctival pallor. Normocephalic, atraumatic. No pharyngeal erythema. No thyromegaly. CARDIOVASCULAR: S1 and S2 present. No murmurs, rubs, or gallops. PULMONARY: Chest is clear to auscultation, no wheezing or crackles. ABDOMEN: Soft, nontender, nondistended, normoactive bowel sounds. No palpable organomegaly. MUSCULOSKELETAL: No joint swelling or deformity. EXTREMITIES: No cyanosis, clubbing, or pedal edema. NEUROLOGICAL: Gross neurological examination did not reveal any focal deficits. SKIN: No rashes. Assessment Status post paraesophageal hernia repair and being followed by general surgery Left lower lobe infiltrate concerning for developing pneumonia Dysuria and possible acute urinary tract infection Leukocytosis History of seizure disorder with a recent seizure 2 days ago secondary to m issing her medication she has been resumed on her Briviact Hypertension currently normotensive recommend to hold off on lisinopril to avoid any postoperative hypotension History of heart failure with no acute exacerbation History of COPD stable History of stroke History of bowel resection and short gut syndrome Sick sinus syndrome Anxiety/depression GI prophylaxis as per primary DVT prophylaxis: Lovenox full code Home medications have been reviewed and resumed as appropriate Hold lisinopril as mentioned Okay to resume her home Briviact Patient was started on IV levofloxacin, urine culture negative On clear liquid diet Encourage incentive spirometer 10 times an hour while awake Monitor electrolytes and renal function Thank you kindly for this consultation we will continue to follow along The impression and plan of care has been dictated by Irlanda Al, Nurse Practitioner as directed. Dr. Ramila MD I have performed a history and physical examination and medical decision making of this patient, discussed the same with the dictator, and agree with the dictators assessment and plan as written, documented as a scribe. Based on total visit time, I have performed more than 50% of this visit. Objective - Vital Signs Vital signs: Vital Signs Temp 98.9 F 10/04/24 14:30 Pulse 106 H 10/04/24 14:30 Resp 16 10/04/24 14:30 BP 120/82 10/04/24 14:30 Pulse Ox 97 10/04/24 14:30 FiO2 Intake & Output 10/03/24 10/04/24 10/04/24 18:59 06:59 18:59 Weight 63.3 kg Other: Voiding Method Toilet Toilet # Voids 4 3 - Labs CBC & Chem 7: 10/04/24 08:14 10/04/24 07:21 Labs: Abnormal Lab Results - Last 24 Hours (Table) 10/04/24 10/04/24 Range/Units 07:21 08:14 RBC 3.66 L (4.10-5.20) 10*6/uL Hgb 10.7 L (12.0-15.0) g/dL Hct 32.9 L (37.2-46.3) % Sodium 136 L (137-145) mmol/L Chloride 111 H (98-107) mmol/L Carbon Dioxide 21 L (22-30) mmol/L BUN 2 L (7-17) mg/dL Creatinine 0.45 L (0.52-1.04) mg/dL Glucose 109 H (74-99) mg/dL Assessment and Plan Time with Patient: Less than 30
[2024-10-04] MEDS: ZINC OXIDE PASTE (Z-GUARD) 1 APPLIC TOPICAL SCH (22:55)
--- NOTE | 2024-10-05 09:50 | P.PN ---
Subjective Progress Note Date: 10/05/24 Patient is a well. She has had several bowel movements. Her pain is improved. On exam vital signs appear stable. Abdomen is soft. Anticipate discharge home in next 48 hours Objective - Vital Signs Vital signs: Vital Signs Temp 98.7 F 10/05/24 07:18 Pulse 100 10/05/24 07:18 Resp 15 10/05/24 07:18 BP 112/69 10/05/24 07:18 Pulse Ox 96 10/05/24 07:18 FiO2 Intake & Output 10/04/24 10/05/24 10/05/24 18:59 06:59 18:59 Intake Total 2160 Output Total 4 Balance -4 2160 Intake: Oral 2160 Output: Urine 4 Other: Voiding Method Bedside Commode # Voids 11 # Bowel Movements 3 - Labs CBC & Chem 7: 10/04/24 08:14 10/04/24 07:21
[2024-10-05] MEDS: NYSTATIN 100,000 UNIT/GM OINT 30 GM TUBE TOPICAL SCH (10:40)
--- NOTE | 2024-10-05 13:13 | P.PN ---
Subjective Progress Note Date: 10/05/24 This is a pleasant 69-year-old female with medical history significant for migraine, seizure disorder, heart failure, COPD, stroke, GERD, hypertension, sick sinus syndrome. Patient admitted for scheduled paraesophageal hernia repair she is evaluated in the medical floor reporting 8 out of 10 abdominal dis comfort after receiving IV pain medications. She is currently NPO. Patient states that she is maintained on Briviact was out of her medication on outpatient basis and did have a seizure 2 days ago. She has since been resumed on this medication however she states that the hospital does not carry it and she did bring her own medication in which is resumed. She is not complaining any shortness of breath or chest discomfort. She is not having any nausea or vomiting at this time. Patient has been afebrile, heart rate of 82 normal sinus rhythm, blood pressure 109/65 she is 98% on 2 L of oxygen via nasal cannula. 10/01/2024 Patient evaluated in follow-up on the medical floor. She remains NPO. Patient has been complaining of dysuria urgency burning and frequency she was started on IV levofloxacin by primary service. Her urinalysis was completed which was nitrate positive with small leukocyte Estrace 29 WBC. She has been afebrile. She is 90% on room air because of this a chest x-ray was completed which reveals increased patchy density at the left lung base which may resent infiltrate versus atelectasis. There is also a right suprahilar increased density. 10/02/2024 Patient evaluated today in follow up on the medical floor. Continues to report abdominal pain 7/10. Remains NPO. Bowel sounds more active today. IV infiltrated in the left arm. Urine culture is final and negative. She continues to report dysuria. Remains on IV levofloxacin. 90% on room air. Procal less than 0.20. White blood cell count 9.55. 10/03/2024 Patient evaluated in follow up on the medical floor. Resting comfortably. Diet advanced to clear liquid. 10/04/2024 Patient is evaluated today in follow up on the medical floor. Has not had a BM since surgery. Currently on clear liquid diet. Bowels are more active. Right AC excoriated. 10/05/2024 Patient eval today in follow the medical floor. Has had multiple bowel movements overnight. Diet has been upgraded to full liquid yesterday. She continues on IV Levaquin for concern for an acute urinary tract infection. Urine culture has been negative as well as her procalcitonin level. She does state that she feels some burning with urination and we will treat the patient with a nystatin ointment for likely a external yeast infection. REVIEW OF SYSTEMS: CONSTITUTIONAL: No fever, no malaise, no fatigue. HEENT: No recent visual problems or hearing problems. Denied any sore throat. CARDIOVASCULAR: No chest pain, orthopnea, PND, no palpitations, no syncope. PULMONARY: No shortness of breath, no cough, no hemoptysis. GASTROINTESTINAL: No diarrhea, no nausea, no vomiting, no abdominal pain. NEUROLOGICAL: No headaches, no weakness, no numbness. HEMATOLOGICAL: Denies any bleeding or petechiae. GENITOURINARY: has been complaining of burning, urgency frequency PHYSICAL EXAMINATION: GENERAL: The patient is alert and oriented x3, not in any acute distress. Well developed, well nourished. HEENT: Pupils are round and equally reacting to light. EOMI. No scleral icterus. No conjunctival pallor. Normocephalic, atraumatic. No pharyngeal erythema. No thyromegaly. CARDIOVASCULAR: S1 and S2 present. No murmurs, rubs, or gallops. PULMONARY: Chest is clear to auscultation, no wheezing or crackles. ABDOMEN: Soft, nontender, nondistended, normoactive bowel sounds. No palpable organomegaly. MUSCULOSKELETAL: No joint swelling or deformity. EXTREMITIES: No cyanosis, clubbing, or pedal edema. NEUROLOGICAL: Gross neurological examination did not reveal any focal deficits. SKIN: No rashes. Assessment Status post paraesophageal hernia repair and being followed by general surgery Left lower lobe infiltrate concerning for developing pneumonia Dysuria and possible acute urinary tract infection Leukocytosis History of seizure disorder with a recent seizure 2 days ago secondary to missing her medication she has been resumed on her Briviact Hypertension currently normotensive recommend to hold off on lisinopril to avoid any postoperative hypotension History of heart failure with no acute exacerbation History of COPD stable History of stroke History of bowel resection and short gut syndrome Sick sinus syndrome Anxiety/depression GI prophylaxis as per primary DVT prophylaxis: Lovenox full code Home medications have been reviewed and resumed as appropriate Hold lisinopril as mentioned Okay to resume her home Briviact Patient was started on IV levofloxacin, urine culture negative On full liquid diet. Bowels have been moving Patient is encouraged to be up out of bed and ambulate. Encourage incentive spirometer 10 times an hour while awake Monitor electrolytes and renal function Thank you kindly for this consultation we will continue to follow along The impression and plan of care has been dictated by Irlanda Al, Nurse Practitioner as directed. Dr. Ramila MD I have performed a history and physical examination and medical decision making of this patient, discussed the same with the dictator, and agree with the dictators assessment and plan as written, documented as a scribe. Based on total visit time, I have performed more than 50% of this visit. Objective - Vital Signs Vital signs: Vital Signs Temp 98.7 F 10/05/24 07:18 Pulse 100 10/05/24 07:18 Resp 15 10/05/24 07:18 BP 112/69 10/05/24 07:18 Pulse Ox 96 10/05/24 07:18 FiO2 Intake & Output 10/04/24 10/05/24 10/05/24 18:59 06:59 18:59 Intake Total 2160 Output Total 4 Balance -4 2160 Intake: Oral 2160 Output: Urine 4 Other: Voiding Method Bedside Commode # Voids 11 # Bowel Movements 3 - Labs CBC & Chem 7: 10/04/24 08:14 10/04/24 07:21 Assessment and Plan Time with Patient: Less than 30
[2024-10-06 08:55] LABS: Basophils # (A) 0.02 10*3/uL (0.00-0.10); Basophils % (A) 0.2 %; Eosinophils # (A) 0.27 10*3/uL (0.04-0.35); Eosinophils % (A) 3.1 %; Lymphocytes # (A) 1.19 10*3/uL (0.90-5.00); Lymphocytes % (A) 13.7 %; MCH 28.6 pg (27.0-32.0); MCHC 32.4 g/dL (32.0-37.0); MCV 88.3 fL (80.0-97.0); Mean Platelet Volume 10.6 fL (9.5-12.2); Monocytes # (A) 0.93 10*3/uL (0.20-1.00); Monocytes % (A) 10.7 %; Neutrophils # (A) 6.18 10*3/uL (1.80-7.70); Neutrophils % (A) 71.3 %; Platelet Count 186 10*3/uL (140-440); RBC 4.19 10*6/uL (4.10-5.20); RDW 14.1 % (11.5-14.5); WBC 8.68 10*3/uL (4.50-10.00)
[2024-10-06 09:02] LABS: African American GFR (CKD) >90 (>60 ml/min/1.73 sqM); Anion Gap 7 mmol/L; Blood Urea Nitrogen <2 mg/dL (7-17); Carbon Dioxide 20 mmol/L (22-30); Chloride 112 mmol/L (98-107); Glucose 103 mg/dL (74-99); Non-African American GFR(CKD) >90 (>60 ml/min/1.73 sqM); Potassium 3.6 mmol/L (3.5-5.1); Sodium 139 mmol/L (137-145)
[2024-10-06] MEDS: HYDROcodone/APAP 5-325MG 1 EACH TAB PO PRN (10:20)
[2024-10-06] MEDS: ONDANSETRON 4 MG/2 ML VIAL IVP PRN (10:24)
--- NOTE | 2024-10-06 12:17 | P.PN ---
Subjective Progress Note Date: 10/06/24 SURGICAL PROGRESS NOTE CHIEF COMPLAINT: Paraesophageal hernia HISTORY OF PRESENT ILLNESS: Postop day #6 status post open repair paraesophageal hernia. Patient reports her abdominal pain is controlled. She would like to try oral pain medication. Her IV went bad. She is requesting to not have another IV placed. She is tolerating the full liquids. But she does not like our options here. She is having bowel movements. Denies any nausea or vomiting. Afebrile. Mildly tachycardic. WBC 8.68 hemoglobin 12 PHYSICAL EXAM: VITAL SIGNS: Reviewed. GENERAL: Well-developed in no acute distress. HEENT: No sclera icterus. Extraocular movements grossly intact. Moist buccal mucosa. Head is atraumatic, normocephalic. ABDOMEN: Soft. Nondistended. Incision site clean dry and intact NEUROLOGIC: Alert and oriented. Cranial nerves II through XII grossly intact. ASSESSMENT: 1. Paraesophageal hernia status post open repair 2. Possible UTI PLAN: -Continue full liquid diet. No straws or carbonated beverages -Start oral pain medication with [place] -Discontinue IV fluids -Anticipate discharge tomorrow -DVT prophylaxis Lovenox and GI prophylaxis Pepcid [facility] note has been reviewed by physician. Signing provider agrees with the documented findings, assessment, and plan of care. Objective - Vital Signs Vital signs: Vital Signs Temp 98.7 F 10/06/24 07:16 Pulse 93 10/06/24 07:16 Resp 18 10/06/24 07:16 BP 118/54 10/06/24 07:16 Pulse Ox 94 L 10/06/24 07:16 FiO2 Intake & Output 10/05/24 10/06/24 10/06/24 18:59 06:59 18:59 Intake Total 2160 Balance 2160 Intake: Oral 2160 Other: Voiding Method Bedside Commode # Voids 3 8 # Bowel Movements 6 - Labs CBC & Chem 7: 10/06/24 08:20 10/06/24 08:20 Labs: Abnormal Lab Results - Last 24 Hours (Table) 10/06/24 10/06/24 Range/Units 08:20 08:20 Hct 37.0 L (37.2-46.3) % Immature Gran # 0.09 H (0.00-0.04) 10*3/uL Chloride 112 H (98-107) mmol/L Carbon Dioxide 20 L (22-30) mmol/L BUN <2 L (7-17) mg/dL Creatinine 0.46 L (0.52-1.04) mg/dL Glucose 103 H (74-99) mg/dL
--- NOTE | 2024-10-06 20:10 | P.PN ---
Subjective Progress Note Date: 10/06/24 This is a pleasant 69-year-old female with medical history significant for migraine, seizure disorder, heart failure, COPD, stroke, GERD, hypertension, sick sinus syndrome. Patient admitted for scheduled paraesophageal hernia repair she is evaluated in the medical floor reporting 8 out of 10 abdominal dis comfort after receiving IV pain medications. She is currently NPO. Patient states that she is maintained on Briviact was out of her medication on outpatient basis and did have a seizure 2 days ago. She has since been resumed on this medication however she states that the hospital does not carry it and she did bring her own medication in which is resumed. She is not complaining any shortness of breath or chest discomfort. She is not having any nausea or vomiting at this time. Patient has been afebrile, heart rate of 82 normal sinus rhythm, blood pressure 109/65 she is 98% on 2 L of oxygen via nasal cannula. 10/01/2024 Patient evaluated in follow-up on the medical floor. She remains NPO. Patient has been complaining of dysuria urgency burning and frequency she was started on IV levofloxacin by primary service. Her urinalysis was completed which was nitrate positive with small leukocyte Estrace 29 WBC. She has been afebrile. She is 90% on room air because of this a chest x-ray was completed which reveals increased patchy density at the left lung base which may resent infiltrate versus atelectasis. There is also a right suprahilar increased density. 10/02/2024 Patient evaluated today in follow up on the medical floor. Continues to report abdominal pain 7/10. Remains NPO. Bowel sounds more active today. IV infiltrated in the left arm. Urine culture is final and negative. She continues to report dysuria. Remains on IV levofloxacin. 90% on room air. Procal less than 0.20. White blood cell count 9.55. 10/03/2024 Patient evaluated in follow up on the medical floor. Resting comfortably. Diet advanced to clear liquid. 10/04/2024 Patient is evaluated today in follow up on the medical floor. Has not had a BM since surgery. Currently on clear liquid diet. Bowels are more active. Right AC excoriated. 10/05/2024 Patient eval today in follow the medical floor. Has had multiple bowel movements overnight. Diet has been upgraded to full liquid yesterday. She continues on IV Levaquin for concern for an acute urinary tract infection. Urine culture has been negative as well as her procalcitonin level. She does state that she feels some burning with urination and we will treat the patient with a nystatin ointment for likely a external yeast infection. 10/06/2024 Patient evaluated today in follow up on the medical floor. Patient remains on full liquid diet. She is afebrile and 97% oxygen saturation on room air. Bowels have moved. She has been up out of bed. Plan for DC home tomorrow. REVIEW OF SYSTEMS: CONSTITUTIONAL: No fever, no malaise, no fatigue. HEENT: No recent visual problems or hearing problems. Denied any sore throat. CARDIOVASCULAR: No chest pain, orthopnea, PND, no palpitations, no syncope. PULMONARY: No shortness of breath, no cough, no hemoptysis. GASTROINTESTINAL: No diarrhea, no nausea, no vomiting, no abdominal pain. NEUROLOGICAL: No headaches, no weakness, no numbness. HEMATOLOGICAL: Denies any bleeding or petechiae. GENITOURINARY: has been complaining of burning, urgency frequency PHYSICAL EXAMINATION: GENERAL: The patient is alert and oriented x3, not in any acute distress. Well developed, well nourished. HEENT: Pupils are round and equally reacting to light. EOMI. No scleral icterus. No conjunctival pallor. Normocephalic, atraumatic. No pharyngeal erythema. No thyromegaly. CARDIOVASCULAR: S1 and S2 present. No murmurs, rubs, or gallops. PULMONARY: Chest is clear to auscultation, no wheezing or crackles. ABDOMEN: Soft, nontender, nondistended, normoactive bowel sounds. No palpable organomegaly. MUSCULOSKELETAL: No joint swelling or deformity. EXTREMITIES: No cyanosis, clubbing, or pedal edema. NEUROLOGICAL: Gross neurological examination did not reveal any focal deficits. SKIN: No rashes. Assessment Status post paraesophageal hernia repair and being followed by general surgery Left lower lobe infiltrate concerning for developing pneumonia Dysuria and possible acute urinary tract infection Leukocytosis History of seizure disorder with a recent seizure 2 days ago secondary to missing her medication she has been resumed on her Briviact Hypertension currently normotensive recommend to hold off on lisinopril to avoid any postoperative hypotension History of heart failure with no acute exacerbation History of COPD stable History of stroke History of bowel resection and short gut syndrome Sick sinus syndrome Anxiety/depression GI prophylaxis as per primary DVT prophylaxis: Lovenox full code Home medications have been reviewed and resumed as appropriate Hold lisinopril as mentioned Continue home Briviact Patient was started on IV levofloxacin, urine culture negative On full liquid diet. Bowels have been moving Patient is encouraged to be up out of bed and ambulate. Encourage incentive spirometer 10 times an hour while awake Monitor electrolytes and renal function Thank you kindly for this consultation we will continue to follow along The impression and plan of care has been dictated by Irlanda Al Nurse Practitioner as directed. Dr. Ramila MD I have performed a history and physical examination and medical decision making of this patient, discussed the same with the dictator, and agree with the dictators assessment and plan as written, documented as a scribe. Based on total visit time, I have performed more than 50% of this visit. Objective - Vital Signs Vital signs: Vital Signs Temp 98.7 F 10/06/24 07:16 Pulse 93 10/06/24 07:16 Resp 18 10/06/24 07:16 BP 118/54 10/06/24 07:16 Pulse Ox 94 L 10/06/24 07:16 FiO2 Intake & Output 10/05/24 10/06/24 10/06/24 18:59 06:59 18:59 Intake Total 2160 Balance 2160 Intake: Oral 2160 Other: Voiding Method Bedside Commode # Voids 3 8 # Bowel Movements 6 - Labs CBC & Chem 7: 10/06/24 08:20 10/06/24 08:20 Labs: Abnormal Lab Results - Last 24 Hours (Table) 10/06/24 10/06/24 Range/Units 08:20 08:20 Hct 37.0 L (37.2-46.3) % Immature Gran # 0.09 H (0.00-0.04) 10*3/uL Chloride 112 H (98-107) mmol/L Carbon Dioxide 20 L (22-30) mmol/L BUN <2 L (7-17) mg/dL Creatinine 0.46 L (0.52-1.04) mg/dL Glucose 103 H (74-99) mg/dL Assessment and Plan Time with Patient: Less than 30
[2024-10-07 07:06] VITALS: RESP 18
--- NOTE | 2024-10-07 10:07 | US ---
EXAMINATION TYPE: US venous doppler duplex UE LT DATE OF EXAM: 10/07/2024 COMPARISON: NONE CLINICAL INDICATION: Female, 69 years old with history of swelling and discoloration; Swelling and di scoloration x 1 day. Hx DVT in leg many years ago. Patient does not take blood thinners. TECHNIQUE: Grayscale, color Doppler and spectral Doppler imaging of the upper extremity. SIDE PERFORMED: Left Arm VESSELS IMAGED: IJV Subclavian Vein Axilla Vein Brachial Vein(s) Radial Paired Veins Ulnar Paired Veins Cephalic Vein* Basilic Vein* (*superficial vessels) FINDINGS: Left Arm: *Internal echoes/thrombus seen within a vein in the upper arm. Unable to determine if this is deep or superficial thrombus with certainty. Vein does not compress or show color flow at this le ulices. It appears to probably be within the deep brachial vein, but cannot see with certainty if it is actually in the superficial basilic vein. Grayscale, color doppler, spectral doppler imaging performed of the deep veins of the upper extremiti es. IMPRESSION: Acute DVT is present likely within the deep brachial vein. [facility], , 10/07/2024 10:04 AM
--- NOTE | 2024-10-07 11:12 | P.PN ---
Subjective Progress Note Date: 10/07/24 This is a pleasant 69-year-old female with medical history significant for migraine, seizure disorder, heart failure, COPD, stroke, GERD, hypertension, sick sinus syndrome. Patient admitted for scheduled paraesophageal hernia repair she is evaluated in the medical floor reporting 8 out of 10 abdominal dis comfort after receiving IV pain medications. She is currently NPO. Patient states that she is maintained on Briviact was out of her medication on outpatient basis and did have a seizure 2 days ago. She has since been resumed on this medication however she states that the hospital does not carry it and she did bring her own medication in which is resumed. She is not complaining any shortness of breath or chest discomfort. She is not having any nausea or vomiting at this time. Patient has been afebrile, heart rate of 82 normal sinus rhythm, blood pressure 109/65 she is 98% on 2 L of oxygen via nasal cannula. 10/01/2024 Patient evaluated in follow-up on the medical floor. She remains NPO. Patient has been complaining of dysuria urgency burning and frequency she was started on IV levofloxacin by primary service. Her urinalysis was completed which was nitrate positive with small leukocyte Estrace 29 WBC. She has been afebrile. She is 90% on room air because of this a chest x-ray was completed which reveals increased patchy density at the left lung base which may resent infiltrate versus atelectasis. There is also a right suprahilar increased density. 10/02/2024 Patient evaluated today in follow up on the medical floor. Continues to report abdominal pain 7/10. Remains NPO. Bowel sounds more active today. IV infiltrated in the left arm. Urine culture is final and negative. She continues to report dysuria. Remains on IV levofloxacin. 90% on room air. Procal less than 0.20. White blood cell count 9.55. 10/03/2024 Patient evaluated in follow up on the medical floor. Resting comfortably. Diet advanced to clear liquid. 10/04/2024 Patient is evaluated today in follow up on the medical floor. Has not had a BM since surgery. Currently on clear liquid diet. Bowels are more active. Right AC excoriated. 10/05/2024 Patient eval today in follow the medical floor. Has had multiple bowel movements overnight. Diet has been upgraded to full liquid yesterday. She continues on IV Levaquin for concern for an acute urinary tract infection. Urine culture has been negative as well as her procalcitonin level. She does state that she feels some burning with urination and we will treat the patient with a nystatin ointment for likely a external yeast infection. 10/06/2024 Patient evaluated today in follow up on the medical floor. Patient remains on full liquid diet. She is afebrile and 97% oxygen saturation on room air. Bowels have moved. She has been up out of bed. Plan for DC home tomorrow. 10/07/2024 Patient evaluated today in follow up on medical floor. Left hand purple in color with severe pain. Patient had IV levofloxacin infusing in the left forearm IV. It was stopped. Patient had IV in the left arm prior and was stopped due to pain and swelling. IV was changed over to the right arm which then infiltrated as well. Venous doppler of the left arm showing acute positive brachial DVT. Monitor patient and begin eliquis at 10 mg twice daily. Patient has completed antibiotic therapy and levaquin discontinued. Patient could be discharged later this afternoon if there are palpable pulses on the left upper extremity. REVIEW OF SYSTEMS: CONSTITUTIONAL: No fever, no malaise, no fatigue. HEENT: No recent visual problems or hearing problems. Denied any sore throat. CARDIOVASCULAR: No chest pain, orthopnea, PND, no palpitations, no syncope. PULMONARY: No shortness of breath, no cough, no hemoptysis. GASTROINTESTINAL: No diarrhea, no nausea, no vomiting, no abdominal pain. NEUROLOGICAL: No headaches, no weakness, no numbness. HEMATOLOGICAL: Denies any bleeding or petechiae. GENITOURINARY: has been complaining of burning, urgency frequency PHYSICAL EXAMINATION: GENERAL: The patient is alert and oriented x3, not in any acute distress. Well developed, well nourished. HEENT: Pupils are round and equally reacting to light. EOMI. No scleral icterus. No conjunctival pallor. Normocephalic, atraumatic. No pharyngeal erythema. No thyromegaly. CARDIOVASCULAR: S1 and S2 present. No murmurs, rubs, or gallops. PULMONARY: Chest is clear to auscultation, no wheezing or crackles. ABDOMEN: Soft, nontender, nondistended, normoactive bowel sounds. No palpable organomegaly. MUSCULOSKELETAL: No joint swelling or deformity. EXTREMITIES: No cyanosis, clubbing, or pedal edema. NEUROLOGICAL: Gross neurological examination did not reveal any focal deficits. SKIN: No rashes. Diminished cap refill with +1 palpable radial pulse on the left. Left hand purple in color. Assessment Acute DVT left brachial Status post paraesophageal hernia repair and being followed by general surgery Left lower lobe infiltrate concerning for developing pneumonia Dysuria and possible acute urinary tract infection Leukocytosis History of seizure disorder with a recent seizure 2 days ago secondary to missing her medication she has been resumed on her Briviact Hypertension currently normotensive recommend to hold off on lisinopril to avoid any postoperative hypotension History of heart failure with no acute exacerbation History of COPD stable History of stroke History of bowel resection and short gut syndrome Sick sinus syndrome Anxiety/depression GI prophylaxis as per primary DVT prophylaxis: Lovenox full code Start eliquis 10 mg twice daily for 7 days than transition to 5 mg twice daily for the Acute DVT Consider vascular consultation if symptoms not improving with discontinuation of the IV Home medications have been reviewed and resumed as appropriate Hold lisinopril as mentioned Continue home Briviact Patient was started on IV levofloxacin, urine culture negative. Can DC antibiotics. On full liquid diet. Bowels have been moving Patient is encouraged to be up out of bed and ambulate. Encourage incentive spirometer 10 times an hour while awake Monitor electrolytes and renal function Thank you kindly for this consultation we will continue to follow along The impression and plan of care has been dictated by Irlanda Al, Nurse Practitioner as directed. Dr. Ramila MD I have performed a history and physical examination and medical decision making of this patient, discussed the same with the dictator, and agree with the dictators assessment and plan as written, documented as a scribe. Based on total visit time, I have performed more than 50% of this visit. Objective - Vital Signs Vital signs: Vital Signs Temp 98.0 F 10/07/24 07:05 Pulse 91 10/07/24 07:05 Resp 18 10/07/24 07:05 BP 111/66 10/07/24 07:05 Pulse Ox 94 L 10/07/24 07:05 FiO2 Intake & Output 10/06/24 10/07/24 10/07/24 18:59 06:59 18:59 Weight 63.3 kg Other: # Voids 3 4 # Bowel Movements 1 - Labs CBC & Chem 7: 10/06/24 08:20 10/06/24 08:20 Labs: Abnormal Lab Results - Last 24 Hours (Table) 10/06/24 10/06/24 Range/Units 08:20 08:20 Hct 37.0 L (37.2-46.3) % Immature Gran # 0.09 H (0.00-0.04) 10*3/uL Chloride 112 H (98-107) mmol/L Carbon Dioxide 20 L (22-30) mmol/L BUN <2 L (7-17) mg/dL Creatinine 0.46 L (0.52-1.04) mg/dL Glucose 103 H (74-99) mg/dL Assessment and Plan Time with Patient: Greater than 30
[2024-10-07] MEDS: Apixaban Initiation Dose--VTE 5 MG TAB PO SCH (12:01)
[2024-10-07 14:04] VITALS: BP 110/68; PULSE 96; TEMP 98.2
--- NOTE | 2024-10-07 14:04 | P.DS ---
Providers Date of admission: 09/30/24 10:07 Expected date of discharge: 10/07/24 Attending physician: Giovani Artis Consults: 09/30/24 10:13 Consult Physician Routine Consulting Provider: Ciera Solitario Consult Reason/Comments: Medical management Do you want consulting provider notified?: Yes Primary care physician: Bia May Hospital Course: Discharge diagnosis 1. Paraesophageal hernia status post open repair 2. Possible UTI completed antibiotic treatment during hospitalization Hospital course This is a 69-year-old female with a known paraesophageal hernia. She is status post open repair of paraesophageal hernia. Her pain is controlled. She is tolerating the full liquid diet. She has been up and ambulating. She is afebrile. She is having bowel movements. She did develop a left arm DVT. Medicine service is taking care of the anticoagulation. Patient is stable for discharge. Please refer to chart for any further details. Physician Weaving Loom Operator note has been reviewed by physician. Signing provider agrees with the documented findings, assessment, and plan of care. Patient Condition at Discharge: Stable Plan - Discharge Summary Discharge Rx Participant: No New Discharge Prescriptions: New Nystatin 100,000 Unit/gm Oint [Mycostatin Oint] 1 applic TOPICAL BID #1 each HYDROcodone/APAP 5-325MG [[place] 5-325] 1 tab PO Q6HR PRN 3 Days #12 tab PRN Reason: Pain Continue Pantoprazole Sodium [Protonix] 80 mg PO QAM Metoprolol Succinate (ER) [Toprol XL] 100 mg PO QAM Diphenoxylate HCl/Atropine [Lomotil 2.5-0.025 mg Tablet] 1 tab PO TID PRN PRN Reason: loose stools SUMAtriptan succinate [Imitrex] 100 mg PO BID PRN PRN Reason: Migraine Headache Potassium Chloride ER [K-Dur 20] 40 meq PO DAILY Aspirin EC [Ecotrin Low Dose] 81 mg PO DAILY Brivaracetam [Briviact] 50 mg PO BID Furosemide [Lasix] 40 mg PO QAM Magnesium Oxide [Magnesium] 500 mg PO DAILY Cholecalciferol [Vitamin D3 (25 Mcg = 1000 Iu)] 25 mcg PO DAILY Ibuprofen 800 mg PO Q8H PRN PRN Reason: Pain Cyanocobalamin [Vitamin B-12 Injection] 1,000 mcg IM SA Ondansetron Odt [Zofran ODT] 8 mg PO Q8HR PRN PRN Reason: Nausea Cyclobenzaprine [Flexeril] 10 mg PO TID PRN PRN Reason: Pain diazePAM [Valium] 5 mg VAGINAL BID PRN PRN Reason: Anxiety Dicyclomine [Bentyl] 10 mg PO TID PRN PRN Reason: Gi Upset Benzonatate [Tessalon Perle] 200 mg PO TID PRN PRN Reason: Cough Zinc Gluconate [Zinc] 50 mg PO DAILY Ascorbic Acid [Vitamin C] 500 mg PO DAILY Discontinued lisinopriL [Zestril] 20 mg PO BID Discharge Medication List Metoprolol Succinate (ER) [Toprol XL] 100 mg PO QAM 08/01/18 [History] Pantoprazole Sodium [Protonix] 80 mg PO QAM 08/01/18 [History] Diphenoxylate HCl/Atropine [Lomotil 2.5-0.025 mg Tablet] 1 tab PO TID PRN 03/31/20 [History] Cyanocobalamin [Vitamin B-12 Injection] 1,000 mcg IM SA 03/01/22 [History] Potassium Chloride ER [K-Dur 20] 40 meq PO DAILY 11/30/22 [History] SUMAtriptan succinate [Imitrex] 100 mg PO BID PRN 11/30/22 [History] Ondansetron Odt [Zofran ODT] 8 mg PO Q8HR PRN 02/11/23 [History] Aspirin EC [Ecotrin Low Dose] 81 mg PO DAILY 05/03/23 [History] Cyclobenzaprine [Flexeril] 10 mg PO TID PRN 05/03/23 [History] Ascorbic Acid [Vitamin C] 500 mg PO DAILY 03/11/24 [History] Benzonatate [Tessalon Perle] 200 mg PO TID PRN 03/11/24 [History] Brivaracetam [Briviact] 50 mg PO BID 03/11/24 [History] Cholecalciferol [Vitamin D3 (25 Mcg = 1000 Iu)] 25 mcg PO DAILY 03/11/24 [History] Dicyclomine [Bentyl] 10 mg PO TID PRN 03/11/24 [History] Furosemide [Lasix] 40 mg PO QAM 03/11/24 [History] Magnesium Oxide [Magnesium] 500 mg PO DAILY 03/11/24 [History] Zinc Gluconate [Zinc] 50 mg PO DAILY 03/11/24 [History] diazePAM [Valium] 5 mg VAGINAL BID PRN 03/11/24 [History] Ibuprofen 800 mg PO Q8H PRN 09/25/24 [History] HYDROcodone/APAP 5-325MG [[place] 5-325] 1 tab PO Q6HR PRN 3 Days #12 tab 10/07/24 [Rx] Nystatin 100,000 Unit/gm Oint [Mycostatin Oint] 1 applic TOPICAL BID #1 each 10/07/24 [Rx] Follow up Appointment(s)/Referral(s): [facility], [NON-STAFF] - As Needed Bia May MD [Primary Care Provider] - 1 Week Giovani Artis MD [STAFF PHYSICIAN] - 1 Week Activity/Diet/Wound Care/Special Instructions: No driving while taking [place] No lifting over 10 pounds Shower daily. No soaking or tub baths for 2 weeks Very light activity until you are reevaluated at your follow up appointment with your surgeon No straws or carbonated beverages Stay on a full liquid diet for the next 2 weeks Okay to remove surgical dressing and shower with soap and water to the incision Discharge Disposition: HOME SELF-CARE
--- NOTE | 2024-10-14 10:05 | CDI ---
Documentation Clarification Form Date: 10/14/2024 09:49:36 AM From: Katelyn Sánchez Phone: Admit Date: 09/30/2024 10:07:00 AM Patient Name: Cynthia Duke Visit Number: [id number] Discharge Date: 10/07/2024 05:03:00 PM ATTENTION: The Clinical Documentation Specialists (CDI) and [facility] Coding Staff appreciate your assistance in clarifying documentation. Please respond to the clarification below the line at the bottom and electronically sign. The CDI & [facility] Coding staff will review the response and follow-up if needed. Please note: Queries are made part of the Legal Health Record. If you have any questions, please contact the author of this message via ITS. Doctor/Provider: Giovani Artis Pneumonia is documented in 10/01 PN which may lack sufficient clinical evidence/support in the medical record. Additional clarification is requested. History/Risk Factors: This 69-year-old female with complaints ofGERDanddysphagia. Patients recent upper GI sows a significant Para esophagealhiatal herniawith approxione third of her stomach in the intrathoracic position. Patient has severe reflux. Clinical Indicators: PN 10/01 -Status postparaesophageal hernia repairand being followed by general surgery Left lower lobe infiltrateconcerning for developingpneumonia Okay to resume her home Briviact Patient was started on IV levofloxacin Encourage incentive spirometer 10 times an hour while awake Pending urine culture Check a procalcitonin level PN 10/02 - Left lower lobe infiltrateconcerning for developingpneumonia Treatment: Patient was started on IV levofloxacin Encourage incentive spirometer 10 times an hour while awake PN 10/06 - Patient evaluated today infollow upon the medical floor.Patient remains on full liquid diet.She is afebrile and 97% oxygen saturation on room air.Bowels have moved.She has been up out of bed.Plan for DC home tomorrow. PN 10/07 - Urine culture has been negative as well as procalcitoninlevel. Please clarify if Pneumonia is a valid diagnosis? [ xx ] No, Pneumonia is ruled out [ ] Yes, Pneumonia is present as evidence by (additional clinical support): [ ] Other (please specify diagnosis) [ ] Unable to determine (Template Last Revised: October 2023) MTDD
== END 2024-10-07 17:03 | disposition home or self-care (01) | DRG 327 ==
LOC: OR 06:55 → 4SSUR 10:07 → OR 10:07 → 4SSUR 10:27 → OR 10-03 13:00 → 4SSUR 10-03 13:00
PROVIDERS: ADMIT Surgery; ATTEND Surgery
PROC: 05HB33Z Insertion of Infusion Device into Right Basilic Vein, Percutaneous Approach (ICD-10-PCS; principal; 2024-09-30 09:50)
PROC: 0DN80ZZ Release Small Intestine, Open Approach (ICD-10-PCS; 2024-10-02)
PROC: 0BQT0ZZ Repair Diaphragm, Open Approach (ICD-10-PCS; 2024-10-02 10:20)
DX: K44.9 Diaphragmatic hernia without obstruction or gangrene (principal); I82.622 Acute embolism and thrombosis of deep veins of left upper extremity; J44.0 Chronic obstructive pulmonary disease with (acute) lower respiratory infection; K90.829 Short bowel syndrome, unspecified; I11.0 Hypertensive heart disease with heart failure; G40.409 Other generalized epilepsy and epileptic syndromes, not intractable, without status epilepticus; I49.5 Sick sinus syndrome; F32.A Depression, unspecified; N39.0 Urinary tract infection, site not specified; I50.9 Heart failure, unspecified; K66.0 Peritoneal adhesions (postprocedural) (postinfection); K21.9 Gastro-esophageal reflux disease without esophagitis; Z86.73 Personal history of transient ischemic attack (TIA), and cerebral infarction without residual deficits; G43.909 Migraine, unspecified, not intractable, without status migrainosus; F41.9 Anxiety disorder, unspecified; Z90.49 Acquired absence of other specified parts of digestive tract; D72.829 Elevated white blood cell count, unspecified; B37.9 Candidiasis, unspecified; I25.10 Atherosclerotic heart disease of native coronary artery without angina pectoris; R13.10 Dysphagia, unspecified; I25.2 Old myocardial infarction; Z79.82 Long term (current) use of aspirin; Z88.8 Allergy status to other drugs, medicaments and biological substances; Z88.0 Allergy status to penicillin; Z91.148 Patient's other noncompliance with medication regimen for other reason; Z79.899 Other long term (current) drug therapy; Z85.3 Personal history of malignant neoplasm of breast; Z85.42 Personal history of malignant neoplasm of other parts of uterus; Z85.43 Personal history of malignant neoplasm of ovary; Z86.718 Personal history of other venous thrombosis and embolism; Z90.710 Acquired absence of both cervix and uterus
CPT/HCPCS: 36410; 71045; 76937; 80048; 80053; 81001; 83735; 84145; 85025; 87086

== ENCOUNTER → 2024-12-04 | Outpatient (CLI) | payer MEDICARE, OTHER ==
[2024-12-04 15:11] LABS: Basophils # (A) 0.05 X 10*3/uL (0.00-0.10); Basophils % (A) 0.8 %; Eosinophils # (A) 0.23 X 10*3/uL (0.04-0.35); Eosinophils % (A) 3.7 %; HCT 38.7 % (37.2-46.3); HGB 12.4 g/dL (12.0-15.0); Immature Grans, Automated 0.60 %; Lymphocytes # (A) 1.36 X 10*3/uL (0.90-5.00); Lymphocytes % (A) 21.9 %; MCH 27.9 pg (27.0-32.0); MCHC 32.0 g/dL (32.0-37.0); MCV 87.2 FL (80.0-97.0); Monocytes # (A) 0.67 X 10*3/uL (0.20-1.00); Monocytes % (A) 10.8 %; NRBC Per 100 WBC 0 X 10*3/uL (0.00-0.01); Neutrophils # (A) 3.85 X 10*3/uL (1.80-7.70); Neutrophils % (A) 62.2 %; Platelet Count 206 X 10*3/uL (140-440); RBC 4.44 X 10*6/uL (4.10-5.20); RDW 14.0 % (11.5-14.5); WBC 6.20 X 10*3/uL (4.50-10.00)
[2024-12-04 15:55] LABS: Bilirubin,Urine Negative (Negative); Blood,Urine Negative (Negative); Color,Urine Yellow (Yellow); Ketones,Urine Negative (Negative); Nitrite,Urine Positive (Negative); PH, Urine 6.0; Specific Gravity,Urine 1.014 (1.001-1.030); Urobilinogen,Urine 0.2 E.U./DL
[2024-12-04 16:10] LABS: Bacteria,Urine 4+ (None Seen); Calcium Oxalate Crystals,Urine Present (None Seen)
== END | disposition home or self-care (01) ==
LOC: LABWHC1 08:57
PROVIDERS: ATTEND Family Medicine
DX: D64.9 Anemia, unspecified (principal); N39.0 Urinary tract infection, site not specified
CPT/HCPCS: 36415; 81001; 85025; 87086